=== PATIENT | male | born 1960 | race Caucasian/White ===

== ENCOUNTER 2022-12-16 07:22 | Outpatient (OUT) | payer OTHER, SELFPAY ==
[2022-12-16 08:09] LABS: Basophils Absolute Auto 0.1 10^3/uL (0.0-0.1); Basophils Percent Auto 1.1 % (0.2-2.0); Eosinophils Absolute Auto 0.6 10^3/uL (0.0-0.7); Hematocrit 46.3 % (42.0-54.0); Hemoglobin 15.1 g/dL (14.0-18.0); Immature Granulocytes Abs Auto 0.07 10^3/uL (0.00-0.03); Immature Granulocytes Pct Auto 0.8 % (0.0-0.5); Lymphocytes Absolute Auto 3.8 10^3/uL (1.2-3.8); Lymphocytes Percent Auto 41.4 % (20.5-60.0); Mean Corpuscular HGB Conc 32.6 g/dL (29.9-35.2); Mean Corpuscular Hemoglobin 31.8 pg (25.9-34.0); Mean Corpuscular Volume 97.5 fL (80.0-94.0); Mean Platelet Volume 9.8 fL (9.5-13.5); Monocytes Absolute Auto 0.9 10^3/uL (0.3-0.8); Monocytes Percent Auto 9.2 % (1.7-12.0); Neutrophils Absolute Auto 3.9 10^3/uL (1.4-6.5); Neutrophils Percent Auto 41.5 % (43.0-75.0); Platelet Count 226 10^3/uL (150-450); Red Blood Count 4.75 10^6/uL (4.70-6.10); Red Cell Distribution Width 14.2 % (11.0-15.0); White Blood Count 9.3 10^3/uL (4.0-11.0)
[2022-12-16 08:39] LABS: Alanine Aminotransferase 42 U/L (16-63); Albumin Globulin Ratio 1.1; Albumin Level 3.9 g/dL (3.4-5.0); Alkaline Phosphatase 76 U/L (46-116); Anion Gap 16.9; Aspartate Amino Transferase 25 U/L (15-37); Bilirubin Total 0.2 mg/dL (0.2-1.0); Carbon Dioxide 25.9 mmol/L (21.0-32.0); Chloride 105 mmol/L (98-107); Chol HDL Ratio 3.1; Cholesterol 100 mg/dL (<=200); Creatinine Urine Random 115.07 mg/dL (20.00-300.00); Estimated GFR (African America >60 (>=60); Estimated GFR (Non-African Ame >60 (>=60); Globulin 3.4 g/dL; Glucose 145 mg/dL (74-106); HDL Cholesterol 32 mg/dL (40-60); Potassium 4.8 mmol/L (3.5-5.1); Protein Creatinine Ratio Urine 0.13; Sodium 143 mmol/L (136-145); Total Protein 7.3 g/dL (6.4-8.2); Total Protein Urine Random 14.8 mg/dL (<=11.9); Triglycerides 341 mg/dL (<=150); VLDL CHOLESTEROL 68.2 mg/dL
[2022-12-16 09:42] LABS: Estimated Average Glucose 163 mg/dL; Glycohemoglobin A1C 7.3 % (4.5-6.2)
== END 2022-12-16 07:23 | disposition home or self-care (01) ==
LOC: LAB 07:23
PROVIDERS: PCP Internal Medicine; Visit Provider Internal Medicine
DX: E78.5 Hyperlipidemia, unspecified (principal); E11.22 Type 2 diabetes mellitus with diabetic chronic kidney disease; N18.30 Chronic kidney disease, stage 3 unspecified; E11.42 Type 2 diabetes mellitus with diabetic polyneuropathy; I25.10 Atherosclerotic heart disease of native coronary artery without angina pectoris
CPT/HCPCS: 36415; 80053; 80061; 82570; 82607; 83036; 84156; 85025

== ENCOUNTER 2023-03-05 13:06 | Emergency (ER) | payer OTHER, SELFPAY ==
[2023-03-05] VITALS (13 sets, daily range): BP systolic 98–103; BP diastolic 67–76; PULSE 61–77; RESP 13–22; TEMP 36.8; O2SAT 86–98; BMI 32.3
--- NOTE | 2023-03-05 13:10 | ECG_ITS ---
[facility] Test Date: 2023-03-05 Pat Name: ROXANE BONNER Department: Room: - Gender: Male Video Editor: : 1960 Requested By: SHAIKH WAYNE Order Number: [id number] Reading MD: SALAZAR SAWANT Measurements Intervals [place] Rate: 76 P: 30 NM: 176 QRS: 34 QRSD: 96 T: 45 QT: 408 QTc: 438 Interpretive Statements 1100 Sinus rhythm 8102 Low QRS voltage in chest leads 9120 atypical ECG No previous ECG available for comparison Electronically Signed On 03-06-2023 7:01:35 EDT by SALAZAR SAWANT
--- NOTE | 2023-03-05 13:10 | ED.AMS1 ---
HPI - Altered Mental Status General Chief Complaint: Altered Mental Status Stated Complaint: ULTERED MENTAL STATUS Time Seen by Provider: 03/05/23 13:10 History of Present Illness HPI narrative: Brought to us by the EMS after he was found in the street laying down, the patient admits of using marijuana before arrival smoking it , he also denies any fall or trauma, the patient mentioned that he does smoke cigarettes did not specify how many packs a day of cigarettes The patient also denies any abdominal pain nausea vomiting or any other concerns at the moment he which is sleepy after he smoked marijuana and also any other drug use Related Data Allergies Allergy/AdvReac Type Severity Reaction Status Date / Time Sulfa (Sulfonamide Allergy Severe Rash Verified 03/05/23 13:16 Antibiotics) Penicillins Allergy Verified 03/05/23 13:16 Review of Systems ROS Status of ROS 10 or more systems reviewed and unremarkable except as noted in history and below Exam Narrative Exam Narrative: Nurses notes and vital signs reviewed and patient is not hypoxic. General: Well-appearing and in no apparent distress. Skin: Warm, dry, no pallor noted. No rash. Head: Normocephalic, atraumatic. Neck: Supple, non-tender. Eye: Pupils are equal, round and EOMI. No scleral icterus. Ears, Nose, Mouth, and Throat: TM are clear, no nasal mucosal hypertrophy. Oral mucosa is moist, no posterior oropharynx erythema, uvula is mid-line Cardiovascular: Regular Rate and Rhythm without murmur, gallop or rub. Respiratory: No accessory muscle use or respiratory distress. Lungs are clear to auscultation, no wheezing, rales or rhonchi Chest Wall: no tenderness Back: No midline thoracic or lumbar vertebral tenderness. No CVA tenderness Musculoskeletal: normal ROM, no calf or popliteal tenderness, no lower extremity edema/swelling GI: Abdomen is soft, non-distended. Normal bowel sounds. No masses appreciated. No tenderness to palpation. No rebound, guarding, or rigidity noted. Neurological: A&O x4. No cranial nerve dysfunction observed. No truncal ataxia. Moves all extremities. Sensation intact. Psychiatric: Cooperative and interactive once his name is called, normal mood and affect. Constitutional Vital Signs, click to edit/add: Last Vital Signs Temp 98.2 F 03/05/23 13:37 Pulse 67 03/05/23 14:20 Resp 19 03/05/23 14:20 BP 103/67 03/05/23 13:36 Pulse Ox 98 03/05/23 14:20 O2 Del Method Room Air 03/05/23 13:20 O2 Flow Rate 2 03/05/23 13:20 Course Vital Signs Vital signs: Vital Signs Pulse Rate 75 03/05/23 13:08 Respiratory Rate 18 03/05/23 13:08 Blood Pressure 98/76 03/05/23 13:08 Pulse Oximetry 93 L 03/05/23 13:08 Oxygen Delivery Method Room Air 03/05/23 13:08 Temperature 98.2 F 03/05/23 13:37 Pulse Rate 67 03/05/23 14:20 Respiratory Rate 19 03/05/23 14:20 Blood Pressure 103/67 03/05/23 13:36 Pulse Oximetry 98 03/05/23 14:20 Oxygen Delivery Method Room Air 03/05/23 13:20 Oxygen Delivery Flow Rate 2 03/05/23 13:20 MDM - Altered Mental Status MDM Narrative Medical decision making narrative: The patient EKG showing sinus rhythm with a heart rate of [address] elevation or depression The patient is coming to the ER after he was found to be sleepy in the ER he is fully responsive but he does close his eyes while not talking to him and he does talk to you while he is closing his eyes The patient admits that he did not sleep overnight and he did do some marijuana before arrival Right now the patient CBC chemistry showed no acute pathology and he will be discharged home as no acute finding at this moment or any complication the patient brother at the bedside to take him home The patient is to follow up with primary care physician in next 2-3 days or to return to the emergency department should any of the signs or symptoms worsen or new symptoms develop. The patient agrees with the following Diagnosis and Treatment plan and the patient will be discharged home. Lab Data Labs: Lab Results 03/05/23 03/05/23 Range/Units 13:30 14:10 WBC 11.1 H (4.0-11.0) 10^3/uL RBC 4.36 L (4.70-6.10) 10^6/uL Hgb 14.1 (14.0-18.0) g/dL Hct 42.7 (42.0-54.0) % MCV 97.9 H (80.0-94.0) fL MCH 32.3 (25.9-34.0) pg MCHC 33.0 (29.9-35.2) g/dL RDW 13.7 (11.0-15.0) % Plt Count 196 (150-450) 10^3/uL MPV 10.3 (9.5-13.5) fL Neut % (Auto) 40.0 L (43.0-75.0) % Lymph % (Auto) 42.2 (20.5-60.0) % [place] % (Auto) 9.6 (1.7-12.0) % Eos % (Auto) 6.6 (0.9-7.0) % Baso % (Auto) 0.9 (0.2-2.0) % Neut # (Auto) 4.4 (1.4-6.5) 10^3/uL Lymph # (Auto) 4.7 H (1.2-3.8) 10^3/uL [place] # (Auto) 1.1 H (0.3-0.8) 10^3/uL Eos # (Auto) 0.7 (0.0-0.7) 10^3/uL Baso # (Auto) 0.1 (0.0-0.1) 10^3/uL Abs Immat Gran (auto) 0.08 H (0.00-0.03) 10^3/uL Imm/Tot Granulo (auto) 0.7 H (0.0-0.5) % PT 10.9 (9.0-11.6) sec INR 1.03 Sodium 137 (136-145) mmol/L Potassium 5.1 (3.5-5.1) mmol/L Chloride 102 (98-107) mmol/L Carbon Dioxide 25.6 (21.0-32.0) mmol/L Anion Gap 14.5 BUN 24.0 H (7.0-18.0) mg/dL Creatinine 1.22 (0.70-1.30) mg/dL Est GFR ( Amer) >60 (>=60) Est GFR (Non-Af Amer) 60 (>=60) BUN/Creatinine Ratio 19.7 Glucose 187 H (74-106) mg/dL Calcium 8.8 (8.5-10.1) mg/dL Total Bilirubin 0.7 (0.2-1.0) mg/dL AST 46 H (15-37) U/L ALT 44 (16-63) U/L Alkaline Phosphatase 66 (46-116) U/L Troponin I High Sens <4.0 L (4.0-76.1) pg/mL Total Protein 7.3 (6.4-8.2) g/dL Albumin 4.0 (3.4-5.0) g/dL Globulin 3.3 g/dL Albumin/Globulin Ratio 1.2 Urine Opiates Screen Negative (NEGATIVE) Ur Buprenorphine Scrn Negative (NEGATIVE) Ur Oxycodone Screen Negative (NEGATIVE) Urine Methadone Screen Negative (NEGATIVE) Ur Barbiturates Screen Negative (NEGATIVE) U Tricyclic Antidepress Negative (NEGATIVE) Ur Phencyclidine Scrn Negative (NEGATIVE) Ur Amphetamines Screen Negative (NEGATIVE) U Methamphetamines Scrn Negative (NEGATIVE) U Benzodiazepines Scrn Negative (NEGATIVE) Urine Cocaine Screen Negative (NEGATIVE) U Cannabinoids Screen Negative (NEGATIVE) Ethanol Quant <3 mg/dL Discharge Plan Discharge Chief Complaint: Altered Mental Status Clinical Impression: Marijuana abuse Patient Disposition: Home, Self-Care Time of Disposition Decision: 14:58 Condition: Good Instructions: Cannabis Use Disorder (ED) Stand Alone Forms: Portal Instructions Referrals: Shaikh Rae MD [Primary Care Provider] - 1 week
--- NOTE | 2023-03-05 13:11 | XR_ITS ---
The [address] [address] Patient Name: ROXANE BONNER MRN: [id number] date: 1960 Sex: M Assigned Patient Location: ER Current Patient Location: ER Accession/Order Number: [id number] Exam Date: 03/05/2023 13:20 Report Date: 03/05/2023 14:06 At the request of: MARIA L GLORIA Procedure: XR chest 1V EXAM: XR chest 1V INDICATION: ams. COMPARISON: None. TECHNIQUE: Single frontal view of the chest FINDINGS: Normal cardiomediastinal contours. No focal consolidation. Mild left basilar atelectasis. No pleural effusion or pneumothorax. No acute osseous abnormality. XR/XR chest 1V IMPRESSION: No acute cardiopulmonary process. Electronically authenticated by: RICKY KUO Date: 03/05/2023 14:06
--- NOTE | 2023-03-05 13:13 | PC.NURSE ---
Pulse ox ranging from 87-90% on room air, does come up when patient alert. Oxygen applied at 2 LPM/NC
[2023-03-05] MEDS: 0.9 % SODIUM CHLORIDE 1,000 ML 1000 ML IV (13:34)
[2023-03-05 13:41] LABS: Basophils Absolute Auto 0.1 10^3/uL (0.0-0.1); Basophils Percent Auto 0.9 % (0.2-2.0); Eosinophils Absolute Auto 0.7 10^3/uL (0.0-0.7); Eosinophils Percent Auto 6.6 % (0.9-7.0); Hematocrit 42.7 % (42.0-54.0); Hemoglobin 14.1 g/dL (14.0-18.0); Immature Granulocytes Abs Auto 0.08 10^3/uL (0.00-0.03); Immature Granulocytes Pct Auto 0.7 % (0.0-0.5); Lymphocytes Absolute Auto 4.7 10^3/uL (1.2-3.8); Lymphocytes Percent Auto 42.2 % (20.5-60.0); Mean Corpuscular Hemoglobin 32.3 pg (25.9-34.0); Mean Corpuscular Volume 97.9 fL (80.0-94.0); Mean Platelet Volume 10.3 fL (9.5-13.5); Monocytes Absolute Auto 1.1 10^3/uL (0.3-0.8); Monocytes Percent Auto 9.6 % (1.7-12.0); Neutrophils Absolute Auto 4.4 10^3/uL (1.4-6.5); Platelet Count 196 10^3/uL (150-450); Red Blood Count 4.36 10^6/uL (4.70-6.10); Red Cell Distribution Width 13.7 % (11.0-15.0); White Blood Count 11.1 10^3/uL (4.0-11.0)
[2023-03-05 13:54] LABS: INR 1.03; Prothrombin Time 10.9 sec (9.0-11.6)
[2023-03-05 14:05] LABS: Alanine Aminotransferase 44 U/L (16-63); Albumin Globulin Ratio 1.2; Alkaline Phosphatase 66 U/L (46-116); Anion Gap 14.5; Aspartate Amino Transferase 46 U/L (15-37); BUN Creatinine Ratio 19.7; Bilirubin Total 0.7 mg/dL (0.2-1.0); Calcium 8.8 mg/dL (8.5-10.1); Carbon Dioxide 25.6 mmol/L (21.0-32.0); Chloride 102 mmol/L (98-107); Estimated GFR (African America >60 (>=60); Estimated GFR (Non-African Ame 60 (>=60); Globulin 3.3 g/dL; Glucose 187 mg/dL (74-106); Potassium 5.1 mmol/L (3.5-5.1); Sodium 137 mmol/L (136-145); Total Protein 7.3 g/dL (6.4-8.2); Troponin I High Sensitivity <4.0 pg/mL (4.0-76.1)
[2023-03-05 14:24] LABS: Ethanol <3 mg/dL
[2023-03-05 14:33] LABS: Amphetamine Screen Urine NEGATIVE (NEGATIVE); Benzodiazepines Screen Urine NEGATIVE (NEGATIVE); Cannabinoid Screen Urine NEGATIVE (NEGATIVE); Cocaine Screen Urine NEGATIVE (NEGATIVE); Methamphetamines Screen Urine NEGATIVE (NEGATIVE); Opiate Screen Urine NEGATIVE (NEGATIVE); Phencyclidine Screen Urine NEGATIVE (NEGATIVE); Tricyclic Antidepressant Urine NEGATIVE (NEGATIVE)
[2023-03-05 14:34] LABS: Barbiturates Screen Urine NEGATIVE (NEGATIVE); Buprenorphine Screen Urine NEGATIVE (NEGATIVE); Methadone Screen Urine NEGATIVE (NEGATIVE); Oxycodone Screen Urine NEGATIVE (NEGATIVE)
== END 2023-03-05 15:13 | disposition home or self-care (01) ==
PROVIDERS: Emergency Provider Emergency Medicine; PCP Internal Medicine
DX: F12.10 Cannabis abuse, uncomplicated (principal); F17.210 Nicotine dependence, cigarettes, uncomplicated
CPT/HCPCS: 36415; 71045; 80053; 80307; 80320; 84484; 85025; 85610; 93005; 96360; 99285

== ENCOUNTER 2023-04-06 12:07 | Outpatient (OUT) | payer OTHER, SELFPAY ==
[2023-04-06 13:09] LABS: Estimated Average Glucose 154 mg/dL
== END 2023-04-06 12:08 | disposition home or self-care (01) ==
LOC: LAB 12:08
PROVIDERS: PCP Internal Medicine; Visit Provider Internal Medicine
DX: E11.22 Type 2 diabetes mellitus with diabetic chronic kidney disease (principal); E11.42 Type 2 diabetes mellitus with diabetic polyneuropathy
CPT/HCPCS: 36415; 83036

== ENCOUNTER 2023-05-30 10:11 | Outpatient (OUT) | payer OTHER, SELFPAY ==
[2023-05-30 10:43] LABS: Basophils Absolute Auto 0.1 10^3/uL (0.0-0.1); Basophils Percent Auto 0.9 % (0.2-2.0); Eosinophils Absolute Auto 0.4 10^3/uL (0.0-0.7); Eosinophils Percent Auto 4.4 % (0.9-7.0); Hematocrit 47.1 % (42.0-54.0); Hemoglobin 15.2 g/dL (14.0-18.0); Immature Granulocytes Abs Auto 0.06 10^3/uL (0.00-0.03); Immature Granulocytes Pct Auto 0.6 % (0.0-0.5); Lymphocytes Absolute Auto 3.4 10^3/uL (1.2-3.8); Lymphocytes Percent Auto 34.4 % (20.5-60.0); Mean Corpuscular HGB Conc 32.3 g/dL (29.9-35.2); Mean Corpuscular Hemoglobin 31.9 pg (25.9-34.0); Mean Corpuscular Volume 98.9 fL (80.0-94.0); Mean Platelet Volume 9.3 fL (9.5-13.5); Monocytes Absolute Auto 0.7 10^3/uL (0.3-0.8); Monocytes Percent Auto 7.6 % (1.7-12.0); Neutrophils Absolute Auto 5.1 10^3/uL (1.4-6.5); Neutrophils Percent Auto 52.1 % (43.0-75.0); Platelet Count 229 10^3/uL (150-450); Red Blood Count 4.76 10^6/uL (4.70-6.10); Red Cell Distribution Width 13.8 % (11.0-15.0); White Blood Count 9.8 10^3/uL (4.0-11.0)
[2023-05-30 11:27] LABS: Alanine Aminotransferase 47 U/L (16-63); Albumin Globulin Ratio 1.2; Albumin Level 4.2 g/dL (3.4-5.0); Alkaline Phosphatase 64 U/L (46-116); Anion Gap 14.2; Aspartate Amino Transferase 30 U/L (15-37); BUN Creatinine Ratio 17.6; Bilirubin Total 0.4 mg/dL (0.2-1.0); Calcium 9.6 mg/dL (8.5-10.1); Carbon Dioxide 26.8 mmol/L (21.0-32.0); Chloride 103 mmol/L (98-107); Chol HDL Ratio 2.8; Cholesterol 109 mg/dL (<=200); Estimated GFR (African America >60 (>=60); Estimated GFR (Non-African Ame 58 (>=60); Globulin 3.6 g/dL; Glucose 82 mg/dL (74-106); HDL Cholesterol 39 mg/dL (40-60); Sodium 139 mmol/L (136-145); Total Protein 7.8 g/dL (6.4-8.2); Triglycerides 184 mg/dL (<=150); VLDL CHOLESTEROL 36.8 mg/dL
[2023-05-30 12:09] LABS: Creatinine Urine Random 103.93 mg/dL (20.00-300.00); Microalbum Creatinine Ratio Ur 12.5 mg/g (0.0-29.9); Microalbumin Urine Random <1.3 mg/dL (<=30.0)
== END 2023-05-30 10:12 | disposition home or self-care (01) ==
PROVIDERS: PCP Internal Medicine; Visit Provider Internal Medicine
DX: E78.5 Hyperlipidemia, unspecified (principal); E11.9 Type 2 diabetes mellitus without complications
CPT/HCPCS: 36415; 80053; 80061; 82043; 82570; 85025

== ENCOUNTER 2023-11-23 12:15 | Outpatient (OUT) | payer OTHER, SELFPAY ==
--- OUTSIDE RECORDS SUMMARY | 2023-11-23 12:25 | XMS_ITS | CCD ---
Author Organization [facility] Care Team Providers Care Reduction Plant Supervisor Name Role Phone JINNY LOPEZ Unavailable Unavailable BRIDGET PAIGE Unavailable Unavailable HOUSE, ROOSEVELT Unavailable Unavailable House, Sr Roosevelt Garcia Primary Care Provider House DO, Sr Roosevelt Garcia Primary Care Provider HOUSE, SR ROO[place] P Primary Care Unavailable RAN, PRATIK Referring Unavailable PARSELL, WILLIAM W Referring Unavailable HOUSE, SR [place] P Primary Care Unavailable PARSELL, WILLIAM W Referring Unavailable HOUSE, SR [place] P Primary Care Unavailable HOUSE, SR [place] P Primary Care Unavailable RAN, PRATIK Referring Unavailable PARSELL, WILLIAM W Referring Unavailable HOUSE, SR [place] P Primary Care Unavailable PARSELL, WILLIAM W Referring Unavailable HOUSE, SR [place] P Primary Care Unavailable PARSELL, WILLIAM W Referring Unavailable HOUSE, SR [place] P Primary Care Unavailable PARSELL, WILLIAM W Referring Unavailable HOUSE, SR [place] P Primary Care Unavailable PARSELL, WILLIAM W Referring Unavailable HOUSE, SR [place] P Primary Care Unavailable House, Roosevelt P Unavailable Unavailable Unavailable House, DO Roosevelt Primary Care Provider DO Bridget Paige Attending Provider [phone] DO Tree Hayward Referring Provider DENISA, DR AHUMADA Primary Care Unavailable HOUSE, DR AHUMADA Admitting Unavailable HOUSE, DR AHUMADA Attending Unavailable HOUSE, DR AHUMADA Consulting Unavailable HOUSE, DR AHUMADA Primary Care Unavailable HOUSE, DR AHUMADA Admitting Unavailable HOUSE, DR AHUMADA Attending Unavailable HOUSE, DR AHUMADA Consulting Unavailable House, DO Roosevelt Primary Care Provider [phone] DO Tree Hayward Attending Provider Tree Hayward Admitting Unavailable Tree Hayward Attending Unavailable Denisa, Roosevelt Primary Care Unavailable Bridget Paige Admitting Unavailable Bridget Paige Attending Unavailable Tree Hayward Referring Unavailable Denisa, Roosevelt Primary Care Unavailable Tree Hayward Admitting Unavailable Tree Hayward Attending Unavailable Denisa, Roosevelt Primary Care Unavailable Denisa, Dr. Roosevelt Barnes Primary Care Unava ilable Ryland, Dr. Jacinto Del Angel Attending Bisiva ilsharon Crawley, Dr. Roosevelt Barnes Primary Care Unava ilable Saul, Lorenzo Glenda Silvia Patel Referring Adelaide Hughes, Ms. Glenda Donjarrett Patel Attending ROOSEVELT Murillo Primary Care Unavailable Shaikh Rae MD Primary Care Provider Jacinto Hayward DO Unavailable [phone] SHAIKH RAE Attending Unavailable WAYNE, Attending Unavailable WAYNE, Attending Unavailable JACINTO HAYWARD Attending Unavailable SHAIKH RAE Primary Care Unavailable Allergies Allergy Classification Reported Allergen(s) Allergy Type Date of Onset Reaction(s) Facility Penicillins (antibiotic) (6 sources) Penicillins Drug Allergy 01-29-20 18 Hives, Itching, Rash [facility] Sulfamethoxazole / Trimethoprim (6 sources) Sulfamethoxazole / Trimethoprim Drug Allergy 08-03-19 19 Other (See Comments) [facility] Work Phone: (5 sources) Penicillins; Translations: [PENICILLINS] Propensity to adverse reactions to drug 01-29-20 18 Hives, Itching, Rash [place] (3 sources) Sulfamethoxazole / Trimethoprim Drug Allergy 08-03-19 19 Other (See Comments) [place] (4 sources) Penicillins; Translations: [Penicillins] Allergy to drug (finding) Itching, Rash, Swelling [facility] [place] [address] DO Work Phone: (5 sources) Sulfonamides (Antibiotic); Translations: [Sulfa Drugs] Allergy to drug (finding) Itching, Rash, Swelling [facility] (4 sources) Sulfonamides (Antibiotic); Translations: [Sulfa (Sulfonamide Antibiotics)] Allergy to substance 08-26-19 23 Itching, Rash, Swelling [facility] (1 source) Penicillins Drug allergy (disorder) 08-28-19 [facility] Repository (1 source) Penicillin; Translations: [penicillin] Drug Allergy [facility] Repository (1 source) Penicillins Drug Allergy 05-17-19 Itching, Rash, Swelling [facility] Medications Current Medications Medication Drug Class(es) Dates Sig (Normalized) Sig (Original) aspirin 81 mg delayed release oral tablet (15 sources) Platelet Aggregation Inhibitor, Nonsteroidal Anti-inflammatory Drug Start: 08-25-2022 take 81 mg by mouth once daily Aspirin Active 81 MG PO Daily August 25, 2022 12:00am take 1 tablet by mouth once ricardo y aspirin 81 MG chewable tablet Take 81 mg by mouth daily 0 Active atorvastatin 20 mg oral tablet (7 sources) HMG-CoA Reductase Inhibitor take 1 tablet by mouth once daily atorvastatin (LIPITOR) 20 MG tablet Take 20 mg by mouth daily 0 Active ubidecarenone 200 mg oral capsule (14 sources) take 1 capsule by mouth once daily coenzyme Q-10 200 mg capsule Take 1 capsule (200 mg) by mouth once daily. 0 Active Coenzyme Q10 (CO Q 10) 10 MG CAPS Take by mouth daily 0 Active empagliflozin 25 mg oral tablet (3 sources) Sodium-Glucose Cotransporter 2 Inhibitor Start: 08-25-2022 take 1 tablet by mouth once daily Empagliflozin (Jardiance) 25 mg Tablet Active 25 MG PO Daily August 25, 2022 12:00am escitalopram 10 mg oral tablet (1 source) Serotonin Reuptake Inhibitor take 1 tablet by mouth once daily escitalopram (Lexapro) 10 mg tablet Take 1 tablet (10 mg) by mouth once daily. 0 Active gabapentin 600 mg oral tablet (9 sources) Anti-epileptic Agent Start: 07-13-2018 take 2 tablets by mouth once daily in the morning, then take 3 tablets by mouth once daily in the evening gabapentin (NEURONTIN) 600 MG tablet TAKE 2 TABLETS BY MOUTH EVERY MORNING and TAKE 3 TABLETS BY MOUTH EVERY EVENING 0 07/13/2018 Active glimepiride 2 mg oral tablet (6 sources) Sulfonylurea Start: 08-25-2022 take 2 mg by mouth twice daily Glimepiride Active 2 MG PO Twice daily August 25, 2022 12:00am ibuprofen 200 mg oral tablet (9 sources) Nonsteroidal Anti-inflammatory Drug Start: 08-02-2018 take 1 tablet by mouth every six hours as needed for pain ibuprofen (ADVIL;MOTRIN) 200 MG tablet Indications: Dysuria Take 1 tablet by mouth every 6 hours as needed for Pain 30 tablet 0 08/02/2018 Active 24 hr isosorbide mononitrate 30 mg extended release oral tablet (3 sources) Nitrate Vasodilator Start: 08-25-2022 isosorbide mononitrate ER (Imdur) 30 mg 24 hr tablet 1 tablet (30 mg) once daily. 0 08/25/2022 Active Start: 08-18-2022 take 1 tablet by mikey th once daily Isosorbide Mononitrate ER 30 MG Oral Tablet Extended Release 24 Hour TAKE 1 TABLET DAILY DIRECTED. Quantity: 30 Refills: 6 Ordered: 18-Aug-2022 Jorge Hughes CRUSHER ASSEMBLER-JEWELRY SALESPERSONGlenda Start : 18-Aug-2022 Active lisinopril 10 mg oral tablet (15 sources) Angiotensin Converting Enzyme Inhibitor Start: 07-31-2018 take 10 mg by mouth once daily Lisinopril Active 10 MG PO Daily August 25, 2022 12:00am metFORMIN hydrochloride 1000 mg oral tablet (15 sources) Biguanide Start: 08-25-2022 take 1000 mg by mouth twice daily Metformin Active 1000 MG PO Twice daily August 25, 2022 12:00am 24 hr metoprolol succinate 25 mg extended release oral tablet (12 sources) beta-Adrenergic Darryl Start: 08-25-2022 take 12.5 mg by mouth once daily Metoprolol Succinate Active 12.5 MG PO Daily August 25, 2022 12:00am Start: 09-11-2020 take 0.5 tablet by m outh once daily metoprolol succinate (TOPROL XL) 25 MG extended release tablet TAKE 1/2 (ONE-HALF) OF A TABLET BY MOUTH EVERY DAY 0 09/11/2020 Active take 0.5 tablet by m outh once daily metoprolol succinate XL (Toprol-XL) 25 mg 24 hr tablet Take 0.5 tablets (12.5 mg) by mouth once daily. 0 Active pregabalin 150 mg oral capsule (6 sources) Start: 08-25-2022 take 150 mg by mouth three times daily Pregabalin Active 150 MG PO Three times daily August 25, 2022 12:00am rosuvastatin calcium 20 mg oral tablet (11 sources) HMG-CoA Reductase Inhibitor Start: 11-04-2019 take 20 mg by mouth once daily Rosuvastatin Active 20 MG PO Daily August 25, 2022 12:00am tamsulosin hydrochloride 0.4 mg oral capsule (3 sources) alpha-Adrenergic Darryl Start: 01-30-2018 take 1 capsule by mouth once daily tamsulosin (FLOMAX) 0.4 MG capsule Indications: Renal stone Take 1 capsule by mouth daily 30 capsule 3 01/30/2018 Active ubiquinol 200 mg oral capsule (1 source) Start: 08-25-2022 take 200 mg by mouth once daily Coq10 (Ubiquinol) Active 200 MG PO Daily August 25, 2022 12:00am vitamin b12 1 mg oral tablet (6 sources) Vitamin B12 Start: 08-25-2022 take 1 tablet by mouth once daily Cyanocobalamin (Vitamin B-12) (Vitamin B-12) 1,000 mcg Tablet Active 1000 MCG PO Daily August 25, 2022 12:00am End: 06-07-2023 take 1 tablet by mouth four times daily cyanocobalamin, vitamin B-12, (Vitamin B-12) 1,000 mcg tablet extended release Take 1 tablet (1,000 mcg) by mouth 4 times a day. 0 06/07/2023 Discontinued (Therapy completed) Completed/Discontinued Medications Medication Drug Class(es) Dates Sig (Normalized) Sig (Original) 24 hr nicotine 0.875 mg/hr transdermal system (1 source) Cholinergic Nicotinic Agonist Start: 08-18-2022 apply 1 dose transdermal route once daily GNP Nicotine 21 MG/24HR Transdermal Patch 24 Hour APPLY 1 PATCH DAILY DIRECTED. Quantity: 30 Refills: 0 Ordered: 18-Aug-2022 Glenda Sutherland Start : 18-Aug-2022 Active 24 hr nitroglycerin 0.2 mg/hr transdermal system (4 sources) Nitrate Vasodilator Start: 09-29-2022 apply 1 dose transdermal route once daily, then apply 1 dose transdermal route every twenty-four hours Nitroglycerin 0.2 MG/HR Transdermal Patch 24 Hour APPLY PATCH FOR 12 TO 14 HOURS DAILY, THEN REMOVE Quantity: 30 Refills: 6 Ordered: 29-Sep-2022 Glenda Sutherland Start : 29-Sep-2022 Active Start: 08-18-2022 Nitroglycerin Active 0.4 MG SUBLINGUAL Q5M August 25, 2022 12:00am Problems Active Problems Problem Classification Problem Date Documented Date Episodic/Chronic Acute and unspecified renal failure (1 source) Acute injury of kidney; Translations: [Acute kidney failure, unspecified] Episodic Anxiety disorders (4 sources) Anxiety; Translations: [Anxiety disorder, unspecified] Onset: 06-07-2023 06-07-2023 Chronic Chronic kidney disease (2 sources) Chronic kidney disease stage 3A ; Translations: [Stage 3a chronic kidney disease (HCC)] Chronic Coronary atherosclerosis and other heart disease (13 sources) Atherosclerotic heart disease of [place] coronary artery without angina pectoris; Translations: [Coronary atherosclerosis] Onset: 04-04-2018 06-07-2023 Chronic Diabetes mellitus with complications (4 sources) Type 2 diabetes mellitus with diabetic neuropathy, unspecified; Translations: [TYPE 2 DM W/DIABETIC NEUROPATHY UNS] Onset: 04-19-2022 Chronic Diabetes mellitus with complications (1 source) Diabetes mellitus with complications Onset: 04-04-2018 Diabetes mellitus without complication (13 sources) Diabetes mellitus; Translations: [Diabetes mellitus without mention of complication, type II or unspecified type, not stated as uncontrolled] Onset: 07-30-2021 Chronic Disorders of lipid metabolism (6 sources) Hyperlipidemia; Translations: [Other and unspecified hyperlipidemia] Onset: 08-27-2022 05-17-2023 Chronic Essential hypertension (6 sources) Hypertensive disorder; Translations: [Unspecified essential hypertension] Onset: 08-27-2022 05-17-2023 Chronic Essential hypertension (1 source) Essential hypertension Onset: 04-04-2018 Genitourinary symptoms and ill-defined conditions (1 source) Dysuria; Translations: [Dysuria] Episodic Hyperplasia of prostate (1 source) Benign prostatic hyperplasia without lower urinary tract symptoms; Translations: [BENIGN PROSTATIC HYPRPLASIA WO LUTS] Onset: 04-24-2022 Chronic Nonspecific chest pain (5 sources) Tight chest; Translations: [Other chest pain] Onset: 05-17-2023 05-17-2023 Episodic Other nutritional; endocrine; and metabolic disorders (6 sources) Obesity; Translations: [Obesity, unspecified] Chronic Other nutritional; endocrine; and metabolic disorders (2 sources) Body mass index 30+ - obesity; Translations: [Obesity, unspecified] Onset: 06-07-2023 06-07-2023 Chronic Other nutritional; endocrine; and metabolic disorders (2 sources) Obesity, unspecified; Translations: [Obesity, unspecified] Onset: 06-07-2023 Chronic Other screening for suspected conditions (not mental disorders or infectious disease) (5 sources) Abnormal results of function studies of other organs and systems; Translations: [Nonspecific abnormal results of function study] Onset: 05-17-2023 05-17-2023 Episodic Residual codes; unclassified (1 source) Other specified postprocedural states; Translations: [Other specified postprocedural states] Onset: 08-27-2022 Episodic Substance-related disorders (9 sources) Smokes tobacco daily; Translations: [Tobacco use disorder] Onset: 08-27-2022 06-07-2023 Chronic Unclassified (1 source) Family hx of ischem heart dis and oth dis of the circ sys / Z82.49(ICD-9) Onset: 04-04-2018 Unclassified (2 sources) Athscl heart disease of che[place] coronary artery w/o ang pctrs / I25.10(ICD-9) Onset: 04-04-2018 Unclassified (1 source) Peripheral vascular angioplasty status / Z98.62(ICD-9) Onset: 04-04-2018 Unclassified (1 source) Pure hypercholesterolemia, unspecified / E78.00(ICD-9) Onset: 04-04-2018 Unclassified (1 source) manager long term care (current) use of oral hypoglycemic drugs / Z79.84(ICD-9) Onset: 04-04-2018 Unclassified (1 source) manager long term care (current) use of aspirin / Z79.82(ICD-9) Onset: 04-04-2018 Unclassified (1 source) Nicotine dependence, unspecified, uncomplicated / F17.200(ICD-9) Onset: 04-04-2018 Unclassified (1 source) Atherosclerotic heart disease of [place] coronary artery with unspecified angina pectoris; Translations: [Atherosclerotic heart disease of [place] coronary artery with unspecified angina pectoris] Onset: 08-27-2022 Unclassified (1 source) Encounter for preprocedural laboratory examination; Translations: [Encounter for preprocedural laboratory examination] Onset: 08-25-2022 Unclassified (1 source) I25.10 - Atherosclerotic heart disease of [place] coronary artery without angina pectoris; Translations: [I25.10 - Atherosclerotic heart disease of [place] coronary artery without angina pectoris] Onset: 09-07-2021 Past or Other Problems Problem Classification Problem Date Documented Da te Episodic/Chronic Calculus of urinary tract (20 sources) Calculus of kidney; Translations: [Renal colic] Onset: 01-28-2018 02-02-2018 Episodic Malaise and fatigue (1 source) Other fatigue; Translations: [OTHER FATIGUE] Onset: 08-05-2021 Episodic Other aftercare (2 sources) correction (current) use of insulin; Translations: [manager long term care (current) use of insulin ([facility]/HCC)] Onset: 05-17-2023 Episodic Other lower respiratory disease (3 sources) Dyspnea; Translations: [Shortness of breath] Onset: 06-07-2023 06-07-2023 Episodic Other lower respiratory disease (1 source) Shortness of breath; Translations: [Shortness of breath] Onset: 06-07-2023 Episodic Other nutritional; endocrine; and metabolic disorders (1 source) Abnormal weight gain; Translations: [ABNORMAL WEIGHT GAIN] Onset: 08-05-2021 Episodic Results Test Name Value Interpretation Reference Range Facility Tobacco Screening.on 023 Adult depression screening assessment No [facility] [place] [address] DO Work Phone: Tobacco use status CP a) Yes [facility] [place] [address] DO Work Phone: Tobacco Screening. Yes [facility] [place] 250 DO Work Phone: Activated partial thrombopla stin time (aPTT) in platelet poor plasma by coagulation aOrdered By: Tree Hayward on 08-25-2022 aPTT Coag (PPP) [Time] 32.0 s 25.1-36.5 [facility] Basophils Auto (Bld) [#/Vol] Ordered By: Tree Hayward on 08-25-2022 Basophils (Bld) [#/Vol] 0.1 10*3/uL 0.0-0.2 [facility] Basophils/100 WBC Auto (Bld) Ordered By: Tree Hayward on 08-25-2022 Basophils/100 WBC (Bld) 1.0 % . [facility] Blood Urea Nitrogenon 2022 Urea nitrogen [Mass/Vol] 20 mg/dL Normal 7-25 [facility] Comment on above: Performed By: #### C BC, PP, LYTES, BUN, CREAT, LIPID #### [facility] [address] Carbon dioxide, total [Moles /volume] in Serum or PlasmaOrdered By: Tree Hayward on 08-25-2022 CO2 [Moles/Vol] 25.8 mmol/L 21.0-31.0 [facility] Chloride [Moles/volume] in S lubna or PlasmaOrdered By: Tree Hayward on 08-25-2022 Chloride [Moles/Vol] 106 mmol/L 98-107 [facility] Cholesterol [Mass/volume] in Serum or PlasmaOrdered By: Tree Hayward on 08-25-2022 Cholesterol [Mass/Vol] 101 mg/dL 140-200 [facility] Comment on above: Chol less than 200 m g/dl low riskChol 201-239 mg/dl borderline riskChol 240 mg/dl and greater high risk Cholesterol in LDL Calc [Mas s/Vol]Ordered By: Tree Hayward on 08-25-2022 Cholesterol in LDL [Mass/Vol] 35 mg/dL 0-100 [facility] Comment on above: LDL ATP III CLASSIFI CATIONLDL less than 100 mg/dL OptimalLDL 100-129 mg/dL Near or above optimalLDL 130-159 mg/dL Borderline highLDL 160-189 mg/dL HighLDL greater than 189 mg/dL Very high Cholesterol in VLDL Calc [Ma ss/Vol]Ordered By: Tree Hayward on 08-25-2022 Cholesterol in VLDL [Mass/Vol] 35 mg/dL [facility] Coagulation Profileon 2022 aPTT Coag (Bld) [Time] 32.0 s Normal 25.1-36.5 [facility] Comment on above: Result Comment: PERF ORMED BY: [facility] [address] [place] [address] PATHOLOGIST STUMP BLOWER MAX RAMOS M.D. Performed By: #### C BC, PP, LYTES, BUN, CREAT, LIPID #### [address] INR Coag (PPP) [Relative time] 0.9 {INR} Normal [facility] Comment on above: Result Comment: INR Therapeutic Range A) Pre- and Peroperative OAT started two weeks before surgery. NOT HIP SURGERY: 1.5 - 2.5 HIP SURGERY: 2 - 3 B) Primary and secondary prevention of venous THROMBOSIS: 2 - 3 C) Active venous thrombosis, pulmonary embolism and prevention of recurrent venous thrombosis: 2 - 3 D) Prevention of arterial thromboembolism including patients with mechanical heart valves: 3 - 4.5 Performed By: #### C BC, PP, LYTES, BUN, CREAT, LIPID #### [address] PT Coag (PPP) [Time] 10.9 s Normal 9.0-12.9 [facility] Comment on above: Performed By: #### C BC, PP, LYTES, BUN, CREAT, LIPID #### [address] Complete Blood Count Auto Di ffon 08-25-2022 Basophils (Bld) [#/Vol] 0.1 10*3/uL Normal 0.0-0.2 [facility] Comment on above: Result Comment: PERF ORMED BY: [place] [address] PATHOLOGIST STUMP BLOWER MAX RAMOS M.D. Performed By: #### C BC, PP, LYTES, BUN, CREAT, LIPID #### [address] Basophils/100 WBC (Bld) 1.0 % Normal . [facility] Comment on above: Performed By: #### C BC, PP, LYTES, BUN, CREAT, LIPID #### [address] Eosinophils (Bld) [#/Vol] 0.5 10*3/uL High 0.0-0.45 [facility] Comment on above: Performed By: #### C BC, PP, LYTES, BUN, CREAT, LIPID #### [address] Eosinophils/100 WBC (Bld) 6.3 % Normal . [facility] Comment on above: Performed By: #### C BC, PP, LYTES, BUN, CREAT, LIPID #### [address] Erythrocyte distribution width (RBC) [Ratio] 13.9 % Normal 12.0-14.8 [facility] Comment on above: Performed By: #### C BC, PP, LYTES, BUN, CREAT, LIPID #### [address] Hematocrit (Bld) [Volume fraction] 40.8 % Normal 38.8-50.0 [facility] Comment on above: Performed By: #### C BC, PP, LYTES, BUN, CREAT, LIPID #### [address] Hemoglobin (Bld) [Mass/Vol] 13.8 g/dL Normal 13.0-17.0 [facility] Comment on above: Performed By: #### C BC, PP, LYTES, BUN, CREAT, LIPID #### [address] Lymphocytes (Bld) [#/Vol] 3.4 10*3/uL Normal 1.00-4.8 [facility] Comment on above: Performed By: #### C BC, PP, LYTES, BUN, CREAT, LIPID #### [address] Lymphocytes/100 WBC (Bld) 42.2 % Normal . [facility] Comment on above: Performed By: #### C BC, PP, LYTES, BUN, CREAT, LIPID #### [address] MCH (RBC) [Entitic mass] 32.2 pg Normal 27.5-35.2 [facility] Comment on above: Performed By: #### C BC, PP, LYTES, BUN, CREAT, LIPID #### [address] MCV (RBC) [Entitic vol] 95.4 fL Normal 83.5-101 [facility] Comment on above: Performed By: #### C BC, PP, LYTES, BUN, CREAT, LIPID #### [address] Mean Corpuscular HGB Conc 33.7 g/dL Normal 32.5-35.6 [facility] Comment on above: Performed By: #### C BC, PP, LYTES, BUN, CREAT, LIPID #### [address] Monocytes (Bld) [#/Vol] 0.7 10*3/uL Normal 0.0-0.8 [facility] Comment on above: Performed By: #### C BC, PP, LYTES, BUN, CREAT, LIPID #### [address] Monocytes/100 WBC (Bld) 8.4 % Normal . [facility] Comment on above: Performed By: #### C BC, PP, LYTES, BUN, CREAT, LIPID #### [address] Neutrophils (Bld) [#/Vol] 3.4 10*3/uL Normal 1.8-7.7 [facility] Comment on above: Performed By: #### C BC, PP, LYTES, BUN, CREAT, LIPID #### [address] Neutrophils/100 WBC (Bld) 42.1 % Normal . [facility] Comment on above: Performed By: #### C BC, PP, LYTES, BUN, CREAT, LIPID #### [address] NRBC% 0.1 /100{WBC} Normal 0-0.5 [facility] Comment on above: Performed By: #### C BC, PP, LYTES, BUN, CREAT, LIPID #### [address] Platelet mean volume (Bld) [Entitic vol] 7.9 fL Normal 6.6-10.1 [facility] Comment on above: Performed By: #### C BC, PP, LYTES, BUN, CREAT, LIPID #### [address] Platelets (Bld) [#/Vol] 206 10*3/uL Normal 150-450 [facility] Comment on above: Performed By: #### C BC, PP, LYTES, BUN, CREAT, LIPID #### [address] RBC (Bld) [#/Vol] 4.28 10*6/uL Normal 3.90-5.60 [facility] Comment on above: Performed By: #### C BC, PP, LYTES, BUN, CREAT, LIPID #### [address] WBC (Bld) [#/Vol] 8.2 10*3/uL Normal 4.1-10.5 [facility] Comment on above: Performed By: #### C BC, PP, LYTES, BUN, CREAT, LIPID #### [address] Creatinineon 08-25-2022 Creatinine [Mass/Vol] 1.32 mg/dL High 0.70-1.30 [facility] Comment on above: Performed By: #### C BC, PP, LYTES, BUN, CREAT, LIPID #### [address] GFR/1.73 sq M.predicted MDRD (S/P/Bld) [Vol rate/Area] mL/min/{1.73_m2} [facility] Comment on above: Performed By: #### C BC, PP, LYTES, BUN, CREAT, LIPID #### [place] [address] [place] Creatinine [Mass/volume] in Serum or PlasmaOrdered By: Tree Hayward on 08-25-2022 Creatinine [Mass/Vol] 1.32 mg/dL 0.70-1.30 [facility] ECG 12 lead ECGon 08-25-2022 ECG 12 lead ECG [facility] [address] [place] [address] [place] [address] Electrocardiograph Report Signed Patient: Roxane Bonner MR#: [id number] : 1960 Acct:[id number] Age/Sex: 61 / M ADM Date: 08/25/22 Loc: Room: Type: [facility] Attending Dr: Tree Hayward DO Ordering Provider: Tree Hayward DO Date of Service: 08/25/22 ECG/ECG 12 lead ECG: pre op Copies to: Test Reason : Blood Pressure : / mmHG Vent. Rate : 070 BPM Atrial Rate : 070 BPM P-R Int : 174 ms QRS Dur : 098 ms QT Int : 418 ms P-R-T Axes : 066 050 057 degrees QTc Int : 451 ms Normal sinus rhythm Low voltage QRS Borderline ECG When compared with ECG of 18-MAR-2012 07:07, No significant change was found Confirmed by JONES MCDERMOTT MD ([id number]) on 08/25/2022 8:48:05 AM Referred By: DENISA HAYWARD Electronically Signed By:JONES MCDERMOTT MD Transcribed By: MUS Signed By Jones Mcdermott MD 0 08/25/22 0848 Normal [facility] Electrolyteson 08-25-2022 Anion gap [Moles/Vol] 12.8 mmol/L Normal 6.0-15.0 [facility] Comment on above: Performed By: #### C BC, PP, LYTES, BUN, CREAT, LIPID #### [facility] [address] [place] [address] [place] Chloride [Moles/Vol] 106 mmol/L Normal 98-107 [facility] Comment on above: Performed By: #### C BC, PP, LYTES, BUN, CREAT, LIPID #### [facility] [address] [place] [address] [place] CO2 [Moles/Vol] 25.8 mmol/L Normal 21.0-31.0 [facility] Comment on above: Performed By: #### C BC, PP, LYTES, BUN, CREAT, LIPID #### [facility] [address] Potassium [Moles/Vol] 4.6 mmol/L Normal 3.5-5.1 [facility] Comment on above: Performed By: #### C BC, PP, LYTES, BUN, CREAT, LIPID #### [facility] [address] Sodium [Moles/Vol] 140 mmol/L Normal 136-145 [facility] Comment on above: Performed By: #### C BC, PP, LYTES, BUN, CREAT, LIPID #### [facility] [address] [place] [address] [place] Eosinophils Auto (Bld) [#/Vo l]Ordered By: Tree Hayward on 08-25-2022 Eosinophils (Bld) [#/Vol] 0.5 10*3/uL 0.0-0.45 [facility] Eosinophils/100 WBC Auto (Bl d)Ordered By: Tree Hayward on 08-25-2022 Eosinophils/100 WBC (Bld) 6.3 % . [facility] Erythrocyte distribution wid th Auto (RBC) [Ratio]Ordered By: Tree Hayward on 08-25-2022 Erythrocyte distribution width (RBC) [Ratio] 13.9 % 12.0-14.8 [facility] Hematocrit Auto (Bld) [Volum e fraction]Ordered By: Tree Hayward on 08-25-2022 Hematocrit (Bld) [Volume fraction] 40.8 % 38.8-50.0 [facility] Hemoglobin [Mass/volume] in BloodOrdered By: Tree Hayward on 08-25-2022 Hemoglobin (Bld) [Mass/Vol] 13.8 g/dL 13.0-17.0 [facility] Laboratory - CoagulationOrde red By: Tree Hayward on 08-25-2022 PT Coag (PPP) [Time] 10.9 s 9.0-12.9 [facility] Leukocytes [#/volume] correc maco for nucleated erythrocytes in Blood by Automated counOrdered By: Tree Hayward on 08-25-2022 WBC corrected for nucl RBC Auto (Bld) [#/Vol] 8.2 10*3/uL 4.1-10.5 [facility] Lipid Panelon 08-25-2022 Cholesterol [Mass/Vol] 101 mg/dL Low 140-200 [facility] Comment on above: Result Comment: Chol less than 200 mg/dl low risk Chol 201-239 mg/dl borderline risk Chol 240 mg/dl and greater high risk Performed By: #### C BC, PP, LYTES, BUN, CREAT, LIPID #### [facility] [address] Cholesterol in HDL [Mass/Vol] 31 mg/dL Normal 29-71 [facility] Comment on above: Result Comment: HDL CHOL ATP-III CLASSIFICATION Cardiovascular Risk HDL > or equal to 60 mg/dL LOW HDL < 40 mg/dL HIGH Performed By: #### C BC, PP, LYTES, BUN, CREAT, LIPID #### [facility] [address] Cholesterol.total/Chol esterol in HDL [Mass ratio] 3.3 {ratio} Normal <5.0 [facility] Comment on above: Result Comment: PERF ORMED BY: [place] [address] PATHOLOGIST STUMP BLOWER MAX RAMOS M.D. Performed By: #### C BC, PP, LYTES, BUN, CREAT, LIPID #### [facility] [address] LDL Cholesterol,Calculated 35 mg/dL Normal 0-100 [facility] Comment on above: Result Comment: LDL ATP III CLASSIFICATION LDL less than 100 mg/dL Optimal LDL 100-129 mg/dL Near or above optimal LDL 130-159 mg/dL Borderline high LDL 160-189 mg/dL High LDL greater than 189 mg/dL Very high Performed By: #### C BC, PP, LYTES, BUN, CREAT, LIPID #### [facility] [address] [place] [address] [place] Triglyceride w/Reflex 177 mg/dL High 0-149 [facility] Comment on above: Result Comment: TRIG ATP III CLASSIFICATION TRIG less than 150 mg/dL Normal TRIG 150-199 mg/dL Borderline high TRIG 200-500 mg/dL High TRIG greater than 500 mg/dL Very high Standard traceable to the Center for Disease Conrtrol and Prevention (CDC) test method. Performed By: #### C BC, PP, LYTES, BUN, CREAT, LIPID #### [facility] [address] VLDL CHOLESTEROL 35 mg/dL Normal [facility] Comment on above: Performed By: #### C BC, PP, LYTES, BUN, CREAT, LIPID #### [facility] [address] Lymphocytes Auto (Bld) [#/Vo l]Ordered By: Tree Hayward on 08-25-2022 Lymphocytes (Bld) [#/Vol] 3.4 10*3/uL 1.00-4.8 [facility] Lymphocytes/100 WBC Auto (Bl d)Ordered By: Tree Hayward on 08-25-2022 Lymphocytes/100 WBC (Bld) 42.2 % . [facility] MCH Auto (RBC) [Entitic mass ]Ordered By: Tree Hayward on 08-25-2022 MCH (RBC) [Entitic mass] 32.2 pg 27.5-35.2 [facility] MCHC Auto (RBC) [Mass/Vol]Or dered By: Tree Hayward on 08-25-2022 MCHC (RBC) [Mass/Vol] 33.7 g/dL 32.5-35.6 [facility] MCV Auto (RBC) [Entitic vol] Ordered By: Tree Hayward on 08-25-2022 MCV (RBC) [Entitic vol] 95.4 fL 83.5-101 [facility] Monocytes Auto (Bld) [#/Vol] Ordered By: Tree Hayward on 08-25-2022 Monocytes (Bld) [#/Vol] 0.7 10*3/uL 0.0-0.8 [facility] Monocytes/100 WBC Auto (Bld) Ordered By: Tree Hayward on 08-25-2022 Monocytes/100 WBC (Bld) 8.4 % . [facility] Neutrophils Auto (Bld) [#/Vo l]Ordered By: Tree Hayward on 08-25-2022 Neutrophils (Bld) [#/Vol] 3.4 10*3/uL 1.8-7.7 [facility] Neutrophils/100 WBC Auto (Bl d)Ordered By: Tree Hayward on 08-25-2022 Neutrophils/100 WBC (Bld) 42.1 % . [facility] No Panel InformationOrdered By: Tree Hayward on 08-25-2022 Estimated GFR (CKD-EPI) > 60.0 mL/Min [facility] Creatinine Clearance (Chem N/A [facility] Nucleated erythrocytes [Pres ence] in Blood by Automated countOrdered By: Tree Hayward on 08-25-2022 Nucleated RBC Auto Ql (Bld) 0.1 /100{WBC} 0-0.5 [facility] Platelet mean volume Auto (B ld) [Entitic vol]Ordered By: Tree Hayward on 08-25-2022 Platelet mean volume (Bld) [Entitic vol] 7.9 fL 6.6-10.1 [facility] Platelet poor plasma interna tional normalized ratio (INR) by coagulation assay (relatOrdered By: Tree Hayward on 08-25-2022 INR Coag (PPP) [Relative time] 0.9 {INR} [facility] Comment on above: INR Therapeutic Rang e A) Pre- and Peroperative OAT started two weeks before surgery. NOT HIP SURGERY: 1.5 - 2.5 HIP SURGERY: 2 - 3B) Primary and secondary prevention of venous THROMBOSIS: 2 - 3C) Active venous thrombosis, pulmonary embolismand prevention of recurrent venous thrombosis: 2 - 3D) Prevention of arterial thromboembolismincluding patients with mechanical heart valves: 3 - 4.5 Platelets Auto (Bld) [#/Vol] Ordered By: Tree Hayward on 08-25-2022 Platelets (Bld) [#/Vol] 206 10*3/uL 150-450 [facility] Potassium [Moles/volume] in Serum or PlasmaOrdered By: Tree Hayward on 08-25-2022 Potassium [Moles/Vol] 4.6 mmol/L 3.5-5.1 [facility] RBC Auto (Bld) [#/Vol]Ordere d By: Tree Hayward on 08-25-2022 RBC (Bld) [#/Vol] 4.28 10*6/uL 3.90-5.60 [facility] Serum or plasma anion gap de terminationOrdered By: Tree Hayward on 08-25-2022 Anion gap [Moles/Vol] 12.8 mmol/L 6.0-15.0 [facility] Serum or plasma high density lipoprotein (HDL) cholesterol measurementOrdered By: Tree Hayward on 08-25-2022 Cholesterol in HDL [Mass/Vol] 31 mg/dL 29-71 [facility] Comment on above: HDL CHOL ATP-III CLA SSIFICATION Cardiovascular RiskHDL > or equal to 60 mg/dL LOWHDL < 40 mg/dL HIGH Serum or plasma total choles terol/high density lipoprotein (HDL) cholesterol mass ratOrdered By: Tree Hayward on 08-25-2022 Cholesterol.total/Chol esterol in HDL [Mass ratio] 3.3 {ratio} <5.0 [facility] Sodium [Moles/volume] in Ser um or PlasmaOrdered By: Tree Hayward on 08-25-2022 Sodium [Moles/Vol] 140 mmol/L 136-145 [facility] Triglyceride [Mass/volume] i n Serum or PlasmaOrdered By: Tree Hayward on 08-25-2022 Triglyceride [Mass/Vol] 177 mg/dL 0-149 [facility] Comment on above: TRIG ATP III CLASSIF ICATIONTRIG less than 150 mg/dL NormalTRIG 150-199 mg/dL Borderline highTRIG 200-500 mg/dL High TRIG greater than 500 mg/dL Very highStandard traceable to the Center for Disease Conrtrol and Prevention (CDC) test method. Urea nitrogen [Mass/volume] in Serum or PlasmaOrdered By: Tree Hayward on 08-25-2022 Urea nitrogen [Mass/Vol] 20 mg/dL 7-25 [facility] WBC Auto (Bld) [#/Vol]Ordere d By: Tree Hayward on 08-25-2022 WBC (Bld) [#/Vol] 8.2 10*3/uL 4.1-10.5 [facility] Office Visit (Cardiology)on 08-18-2022 Follow-up visit Diagnoses/Problems Assessed Angina, class III (413.9) (I20.9) 2-3 month history of progressive frequency, duration and intensity of exertional symptoms concerning for crescendo angina. No symptoms at rest. Atherosclerosis of [place] coronary artery without angina pectoris (414.01) (I25.10) March 2012 pRCA PCI/ROS LAD mild diffuse CX mild diffuse September 2021 MPI no ischemia Hypertension (401.9) (I10) optimal in office Hyperlipidemia (272.4) (E78.5) High intensity statin Diabetes mellitus (250.00) (E11.9) On ABIGAIL/statin Most recent hemoglobin A1c 8.4 Current every day smoker (305.1) (F17.200) 1 pack per day Tried patches and accupuncture Class 1 obesity with body mass index (BMI) of 33.0 to 33.9 in adult (278.00,V85.33) (E66.9,Z68.33) Reviewed the merits of healthy lifestyle choices on overall cardiovascular health. Orders Angina, class III, Atherosclerosis of [place] coronary artery without angina pectoris Start: Isosorbide Mononitrate ER 30 MG Oral Tablet Extended Release 24 Hour; TAKE 1 TABLET DAILY DIRECTED Cardiac Catheterization Lab Procedures; Status:Active; Requested for:18Aug2022; [facility] diagnostic staff to initiate NO preop orders for left heart cath Start: Nitroglycerin 0.4 MG Sublingual Tablet Sublingual; DISSOLVE 1 TABLET UNDER THE TONGUE NEEDED FOR CHEST PAIN Class 1 obesity with body mass index (BMI) of 33.0 to 33.9 in adult Healthy Weight Tips; Status:Complete; Done: 18Aug2022 SocHx: Current every day smoker Start: GNP Nicotine 21 MG/24HR Transdermal Patch 24 Hour; APPLY 1 PATCH DAILY DIRECTED You need to stop smoking. Though it is not easy, more than half of all adult smokers have quit. We encourage you to write down all the reasons you should quit smoking and set a quit date for yourself. Ask us how we can help. You may also call 4-614-WQCU-NOW for free resources and assistance.; Status:Complete; Done: [id number] Tobacco Use Screening; Status:Complete; Done: [id number] Patient Instructions Please bring all medicines, vitamins, and herbal supplements with you when you come to the office. Prescriptions will not be filled unless you are compliant with your follow up appointments or have a follow up appointment scheduled as per instruction of your physician. Refills should be requested at the time of your visit. PLAN: Through informed decision making process incorporating patients unique circumstances, the following treatment plan will be initiated: 1. Prescription drug management of cardiovascular medication for efficacy, adherence to treatment, side effect assessment and polypharmacy. Current treatment clinically warranted and to continue with following modifications: - Begin isosorbide 30mg daily - Try nicoderm patches 2. NTG sl as needed 3. Cardiac cath +/- PCI with Dr. Ryland Alford prior Hold metformin prior to and 48 hours after procedure 4. Return for follow-up; in the interim, contact the office if new symptoms arise. CREATIVE ART THERAPIST after procedure Chief Complaint Annual f/u: 'I am getting chest discomfort' ROXANE BONNER is being seen for an annual follow-up of coronary artery disease, dyslipidemia and hypertension. Patient presents to the office ambulatory with steady gait. Last evaluated in clinic Dr. Paige August 2021. Patient has followed routinely with Dr. Paige since 2011 due to coronary artery disease and secondary prevention, normal LVEF. Patient follows routinely with PCP. He denies any hospitalizations since last office follow-up. Patient presents to the office today where he reports increasing frequency and duration of exertional left sided chest discomfort with radiation into his upper forearm and occasionally his throat. He noticed the symptoms greater than 1 month ago, has not had nitroglycerin to utilize. His prior PCI symptom was exertional heartburn. Today he reports exertional left-sided aching that will radiate into his throat and upper forearm, associated with exertional activity; seems to resolve within 5 minutes of rest. Denies any rest symptoms or awakening from sleep. He ambulated in from the parking lot today and maybe had a twinge . Remains asymptomatic throughout time of my exam. He goes on to report a significant change in exercise capacity and functional tolerance and just not feeling like I am okay . He has also noted increased dyspnea on exertion. Symptoms can be brought on by anxiety or emotional distress. Secondary prevention remains suboptimal with continued daily tobacco abuse, most recent hemoglobin A1c 8.4. From an activity standpoint he does not exercise on a routine basis, he does go to the grocery store and his caregiver to a female with multiple sclerosis. He has retired recently. Current progression of symptoms is causing significant anxiety. Due to progressive symptomatology the risks, benefits and procedure of cardiac catheterization plus or minus coronary intervention were discussed including but not limited to 1:1000 (more content not included)... [facility] 023 Adult depression screening assessment No -[facility] tracy 250 DO Work Phone: Tobacco use status [facility] a) Yes [facility] tracy 250 DO Work Phone: Tobacco Screening. Yes [facility] tracy 250 DO Work Phone: CBC AUTO DIFFon 04-19-2022 BASO # 0.1 103/ul Normal 0.0-0.1 [facility] Comment on above: Performed By: #### C BC #### [facility] [address] [place] [address] Dr. Amarjit Sanchez Basophils/100 WBC (Bld) 0.7 % Normal 0.2-2.0 [facility] Comment on above: Performed By: #### C BC #### [facility] [address] [place] [address] Dr. Amarjit Sanchez EO # 0.3 103/ul Normal 0.0-0.7 [facility] Comment on above: Performed By: #### C BC #### [facility] [address] [place] [address] Dr. Amarjit Sanchez Eosinophils/100 WBC (Bld) 2.4 % Normal 0.9-7.0 [facility] Comment on above: Performed By: #### C BC #### [facility] [address] [place] [address] Dr. Amarjit Sanchez Erythrocyte distribution width (RBC) [Ratio] 12.9 % Normal 11.0-15.0 [facility] Comment on above: Performed By: #### C BC #### [facility] [address] [place] [address] Dr. Amarjit Sanchez Hematocrit (Bld) [Volume fraction] 43.5 % Normal 42.0-54.0 [facility] Comment on above: Performed By: #### C BC #### [facility] [address] [place] [address] Dr. Amarjit Sanchez Hemoglobin (Bld) [Mass/Vol] 14.8 g/dL Normal 14.0-18.0 [facility] Comment on above: Performed By: #### C BC #### [facility] [address] [place] [address] Dr. Amarjit Sanchez IG # 0.23 10e3/ul Critically high 0.00-0.03 [facility] Comment on above: Performed By: #### C BC #### [facility] [address] [place] [address] Dr. Amarjit Sanchez IG % 1.7 % Critically high 0.0-0.5 [facility] Comment on above: Performed By: #### C BC #### [facility] [address] [place] [address] Dr. Amarjit Sanchez LYMPH # 4.5 103/ul Critically high 1.2-3.8 [facility] Comment on above: Performed By: #### C BC #### [facility] [address] [place] [address] Dr. Amarjit Sanchez Lymphocytes/100 WBC (Bld) 34.0 % Normal 20.5-60.0 [facility] Comment on above: Performed By: #### C BC #### [facility] [address] [place] [address] Dr. Amarjit Sanchez MANUAL DIFF REQ NO Normal [facility] Comment on above: Performed By: #### C BC #### [facility] [address] [place] [address] Dr. Amarjit Sanchez MCH (RBC) [Entitic mass] 31.7 pg Normal 25.9-34.0 [facility] Comment on above: Performed By: #### C BC #### [facility] [address] [place] [address] Dr. Amarjit Sanchez MCHC (RBC) [Mass/Vol] 34.0 g/dL Normal 29.9-35.2 [facility] Comment on above: Performed By: #### C BC #### [facility] [address] [place] [address] Dr. Amarjit Sanchez MCV (RBC) [Entitic vol] 93.1 fL Normal 80.0-94.0 [facility] Comment on above: Performed By: #### C BC #### [facility] [address] [place] [address] Dr. Amarjit Sanchez MONO # 0.8 103/ul Normal 0.3-0.8 [facility] Comment on above: Performed By: #### C BC #### [facility] [address] [place] [address] Dr. Amarjit Sanchez Monocytes/100 WBC (Bld) 5.9 % Normal 1.7-12.0 [facility] Comment on above: Performed By: #### C BC #### [facility] [address] [place] [address] Dr. Amarjit Sanchez NEUT # 7.4 103/ul Critically high 1.4-6.5 [facility] Comment on above: Performed By: #### C BC #### [facility] [address] [place] [address] Dr. Amarjit Sanchez Neutrophils/100 WBC (Bld) 55.3 % Normal 43.0-75.0 [facility] Comment on above: Performed By: #### C BC #### [facility] [address] [place] [address] Dr. Amarjit Sanchez Platelet mean volume (Bld) [Entitic vol] 9.3 fL Critically low 9.5-13.5 [facility] Comment on above: Performed By: #### C BC #### [facility] [address] [place] [address] Dr. Amarjit Sanchez PLT 222 103/ul Normal 150-[address] [facility] Comment on above: Performed By: #### C BC #### [facility] [address] [place] [address] Dr. Amarjit Sanchez RBC 4.67 106/ul Critically low 4.70-6.[address] [facility] Comment on above: Performed By: #### C BC #### [facility] [address] [place] [address] Dr. Amarjit Sanchez WBC 13.3 103/ul Critically high 4.0-11.[address] [facility] Comment on above: Performed By: #### C BC #### [facility] [address] [place] [address] Dr. Amarjit Sanchez GLYCOHEMOGLOBIN A1Con 2021 ADA RECOMMENDATION SEE BELOW Normal [facility] Comment on above: Result Comment: ADA RECOMMENDED LIMIT 4.0 - 6.0 ADA THERAPEUTIC TARGET < 7.0 ACTION SUGGESTED > 7.0 Performed By: #### A 1C #### [facility] [address] [place] [address] Dr. Amarjit Sanchez Glucose [Mass/Vol] 194 mg/dL Normal [facility] Comment on above: Performed By: #### A 1C #### [facility] [address] [place] [address] Dr. Amarjit Sanchez HbA1c (Bld) [Mass fraction] 8.4 % Critically high 4.5-6.[address] [facility] Comment on above: Performed By: #### A 1C #### [facility] [address] [place] [address] Dr. Amarjit Sanchez MICROALBUMIN, RAND URon 04-08 mALB <1.3 Normal <=30.[address] [facility] Comment on above: Performed By: #### M ALBR #### [facility] [address] [place] [address] Dr. Amarjit Sanchez PROF 14(COMP METB)on 022 Albumin [Mass/Vol] 4.0 g/dL Normal 3.4-5.[address] [facility] Comment on above: Performed By: #### C MP #### [facility] [address] [place] [address] Dr. Amarjit Sanchez Albumin/Globulin [Mass ratio] 1.2 {ratio} Normal [facility] Comment on above: Performed By: #### C MP #### [facility] [address] [place] [address] Dr. Amarjit Sanchez ALP [Catalytic activity/Vol] 74 U/L Normal 46-116 [facility] Comment on above: Performed By: #### C MP #### [facility] [address] [address] [address] Amarjit Sanchez ALT [Catalytic activity/Vol] 56 U/L Normal 16-63 [facility] Comment on above: Performed By: #### C MP #### [facility] [address] [place] [address] Dr. Amarjit Sanchez Anion gap [Moles/Vol] 15.5 mmol/L Normal [facility] Comment on above: Performed By: #### C MP #### [facility] [address] [place] [address] Dr. Amarjit Sanchez AST [Catalytic activity/Vol] 30 U/L Normal 15-37 [facility] Comment on above: Performed By: #### C MP #### [facility] [address] [place] [address] Dr. Amarjit Sanchez Bilirubin [Mass/Vol] 0.4 mg/dL Normal 0.2-1.0 [facility] Comment on above: Performed By: #### C MP #### [facility] [address] [place] [address] Dr. Amarjit Sanchez Calcium [Mass/Vol] 8.8 mg/dL Normal 8.5-10.1 [facility] Comment on above: Performed By: #### C MP #### [facility] [address] [place] [address] Dr. Amarjit Sanchez Chloride [Moles/Vol] 103 mmol/L Normal 98-[address] [facility] Comment on above: Performed By: #### C MP #### [facility] [address] [place] [address] Dr. Amarjit Sanchez CO2 [Moles/Vol] 24.4 mmol/L Normal 21.0-32.0 [facility] Comment on above: Performed By: #### C MP #### [facility] [address] [place] [address] Dr. Amarjit Sanchez Creatinine [Mass/Vol] 1.11 mg/dL Normal 0.70-1.30 [facility] Comment on above: Performed By: #### C MP #### [facility] [address] [place] [address] Dr. Amarjit Sanchez EGFR-AF [place]IZ[place] >60 Normal >=60 [facility] Comment on above: Performed By: #### C MP #### [facility] [address] [address] [address] Amarjit Sanchez EGFR-NON AF [place] >60 Normal >=60 [facility] Comment on above: Performed By: #### C MP #### [facility] [address] [address] [address] Amarjit Sanchez Globulin (S) [Mass/Vol] 3.3 g/dL Normal [facility] Comment on above: Performed By: #### C MP #### [facility] [address] [place] [address] Dr. Amarjit Sanchez Glucose [Mass/Vol] 113 mg/dL Critically high 74-106 [facility] Comment on above: Performed By: #### C MP #### [facility] [address] [address] [address] Amarjit Sanchez Potassium [Moles/Vol] 4.9 mmol/L Normal 3.5-5.1 [facility] Comment on above: Performed By: #### C MP #### [facility] [address] [place] [address] Dr. Amarjit Sanchez Protein [Mass/Vol] 7.3 g/dL Normal 6.4-8.2 [facility] Comment on above: Performed By: #### C MP #### [facility] [address] [place] [address] Dr. Amarjit Sanchez Sodium [Moles/Vol] 138 mmol/L Normal 136-145 [facility] Comment on above: Performed By: #### C MP #### [facility] [address] [place] [address] Dr. Amarjit Sanchez Urea nitrogen [Mass/Vol] 20.0 mg/dL Critically high 7.0-18.0 [facility] Comment on above: Performed By: #### C MP #### [facility] [address] [place] [address] Dr. Amarjit Sanchez Urea nitrogen/Creatinine [Mass ratio] 18.0 mg/mg Normal [facility] Comment on above: Performed By: #### C MP #### [facility] [facility] [address] [place], [place] [address] Dr. Amarjit Sanchez No Panel Informationon 09-14 [facility] tracy 250 DO Work Phone: STR cardiac stress/lexiscano n 09-14-2021 STR cardiac stress/lexiscan [facility] [address] [place] [id number] Cardiac Stress Test Signed Patient: Roxane Bonner MR#: [id number] 032 : 1960 Acct:[id number] Age/Sex: 60 / M ADM Date: 09/07/21 Loc: Room: Type: [facility] Attending Dr: Bridget Paige DO Copies to: Mildred Wray MD, [facility] Bridget Paige DO Ordering Provider: Bridget Paige DO Date of Service: 09/07/21 STR/STR cardiac stress/lexiscan: see order ORDERED BY: Bridget Paige DO 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 Resting EKG revealed normal sinus rhythm with a rate of 74 beats per minute. Resting blood pressure 135/96 mmHg. Following intravenous administration of 400 mcg of Lexiscan over 10 seconds, no ischemic changes were noted. The patient had no chest pain, and there were no cardiac arrhythmias induced. Cardiolite study followed. CONCLUSION: 1. No Lexiscan-induced ischemic EKG changes, chest pain or cardiac arrhythmias. 2. Cardiolite studies to be reported separately by nuclear cardiology. Transcribed By: NTS 09/15/21 1149 Dictated By: Mildred Wray MD, [facility] 09/14/21 1418 Signed By: 09/15/21 1218 Normal [facility] NM laura perf SPECT rest stron 09-13-2021 NM laura perf SPECT rest str [address] [address] Nuclear Medicine Report Signed Patient: Roxane Bonner MR#: [id number] 032 : 1960 Acct:[id number] Age/Sex: 60 / M ADM Date: 09/07/21 Loc: Room: Type: [facility] Attending Dr: Bridget Paige DO Ordering Provider: Bridget Paige DO Date of Service: 09/07/21 NM/NM laura perf SPECT rest str: [facility] HYPERTENSION Copies to: DO Bridget Stephen DO Mourhaf A Traboulssi, MD REFERRING PHYSICIAN: Bridget Paige DO REASON FOR STUDY: Coronary artery disease and hypertension. PROCEDURE: Rest images obtained by injecting 28.1 mCi of Cardiolite. Stress images obtained by injecting 28.9 mCi of Cardiolite. Subsequently, gated SPECT and ejection fraction studies were performed. IMAGING RESULT: This appears to be fair study. It appears to be normal. There is no clear pattern of ischemia or myocardial infarction. Left ventricular ejection fraction appears normal, calculated at 62%. TID index normal at 1.05. CONCLUSION: 1. No clear pattern of ischemia or myocardial infarction. 2. Normal left ventricular systolic function and wall motion. 3. No previous study available for comparison. Transcribed By: NTS 09/13/21 7175 Dictated By: Jones Mcdermott MD 09/13/21 1112 Signed By: 09/14/21 1132 [facility] No Panel Informationon 09-13 Normal [facility] tracy 250 DO Work Phone: Tobacco Screening.on 022 Adult depression screening assessment No [facility] 250 DO Work Phone: Tobacco use status CPHS a) Yes [facility]-Sand tracy 250 DO Work Phone: Tobacco Screening. Yes [facility]-Sandu tracy 250 DO Work Phone: CBC AUTO DIFFon 07-30-2021 BASO # 0.1 103/ul Normal 0.0-0.[address] [facility] Comment on above: Performed By: #### C BC #### [facility] [address] [place] [address] Dr. Amarjit Sanchez Basophils/100 WBC (Bld) 0.8 % Normal 0.2-2.0 [facility] Comment on above: Performed By: #### C BC #### [facility] [address] [place] [address] Dr. Amarjit Sanchez EO # 0.5 103/ul Normal 0.0-0.[address] [facility] Comment on above: Performed By: #### C BC #### [facility] [address] [place] [address] Dr. Amarjit Sanchez Eosinophils/100 WBC (Bld) 6.2 % Normal 0.9-7.[address] [facility] Comment on above: Performed By: #### C BC #### [facility] [address] [place] [address] Dr. Amarjit Sanchez Erythrocyte distribution width (RBC) [Ratio] 12.9 % Normal 11.0-15.0 [facility] Comment on above: Performed By: #### C BC #### [facility] [address] [place] [address] Dr. Amarjit Sanchez Hematocrit (Bld) [Volume fraction] 43.6 % Normal 42.0-54.0 [facility] Comment on above: Performed By: #### C BC #### [facility] [address] [place] [address] Dr. Amarjit Sanchez Hemoglobin (Bld) [Mass/Vol] 14.6 g/dL Normal 14.0-18.[address] [facility] Comment on above: Performed By: #### C BC #### [facility] [address] [place] [address] Dr. Amarjit Sanchez IG # 0.04 10e3/ul Critically high 0.00-0.[address] [facility] Comment on above: Performed By: #### C BC #### [facility] [address] [place] [address] Dr. Amarjit Sanchez IG % 0.5 % Normal 0.0-0.[address] [facility] Comment on above: Performed By: #### C BC #### [facility] [address] [place] [address] Dr. Amarjit Sanchez LYMPH # 4.2 103/ul Critically high 1.2-3.8 [facility] Comment on above: Performed By: #### C BC #### [facility] [address] [place] [address] Dr. Amarjit Sanchez Lymphocytes/100 WBC (Bld) 51.2 % Normal 20.5-60.0 [facility] Comment on above: Performed By: #### C BC #### [facility] [address] [place] [address] Dr. Amarjit Sanchez MANUAL DIFF REQ NO Normal [facility] Comment on above: Performed By: #### C BC #### [facility] [address] [place] [address] Dr. Amarjit Sanchez MCH (RBC) [Entitic mass] 32.4 pg Normal 25.9-34.0 [facility] Comment on above: Performed By: #### C BC #### [facility] [address] [place] [address] Dr. Amarjit Sanchez MCHC (RBC) [Mass/Vol] 33.5 g/dL Normal 29.9-35.2 [facility] Comment on above: Performed By: #### C BC #### [facility] [address] [place] [address] Dr. Amarjit Sanchez MCV (RBC) [Entitic vol] 96.9 fL Critically high 80.0-94.0 [facility] Comment on above: Performed By: #### C BC #### [facility] [address] [place] [address] Dr. Amarjit Sanchez MONO # 0.7 103/ul Normal 0.3-0.[address] [facility] Comment on above: Performed By: #### C BC #### [facility] [address] [place] [address] Dr. Amarjit Sanchez Monocytes/100 WBC (Bld) 8.5 % Normal 1.7-12.0 [facility] Comment on above: Performed By: #### C BC #### [facility] [address] [place] [address] Dr. Amarjit Sanchez NEUT # 2.7 103/ul Normal 1.4-6.5 [facility] Comment on above: Performed By: #### C BC #### [facility] [address] [place] [address] Dr. Amarjit Sanchez Neutrophils/100 WBC (Bld) 32.8 % Critically low 43.0-75.0 [facility] Comment on above: Performed By: #### C BC #### [facility] [address] [place] [address] Dr. Amarjit Sanchez Platelet mean volume (Bld) [Entitic vol] 10.1 fL Normal 9.5-13.[address] [facility] Comment on above: Performed By: #### C BC #### [facility] [address] [place] [address] Dr. Amarjit Sanchez PLT 222 103/ul Normal 150-[address] [facility] Comment on above: Performed By: #### C BC #### [facility] [address] [place] [address] Dr. Amarjit Sanchez RBC 4.50 106/ul Critically low 4.70-6.[address] [facility] Comment on above: Performed By: #### C BC #### [facility] [address] [place] [address] Dr. Amarjit Sanchez WBC 8.2 103/ul Normal 4.0-11.[address] [facility] Comment on above: Performed By: #### C BC #### [facility] [address] [place] [address] Dr. Amarjit Sanchez GLYCOHEMOGLOBIN A1Con 2021 ADA RECOMMENDATION ADA THERAPEUTIC TARG ET 6.0 - 7.0 ACTION SUGGESTED > 7.0 Normal [facility] Comment on above: Performed By: #### A 1C #### [facility] [address] [place] [address] Dr. Amarjit Sanchez Glucose [Mass/Vol] 197 mg/dL Normal [facility] Comment on above: Performed By: #### A 1C #### [facility] [address] [place] [address] Dr. Amarjit Sanchez HbA1c (Bld) [Mass fraction] 8.5 % Critically high <=6.[address] [facility] Comment on above: Performed By: #### A 1C #### [facility] [address] [place] [address] Dr. Amarjit Sanchez MICROALBUMIN, RAND URon 07-08 mALB <1.3 Normal <=30.0 [facility] Comment on above: Performed By: #### M ALBR #### [facility] [address] [place] [address] Dr. Amarjit Sanchez PROF 14(COMP METB)on 022 Albumin [Mass/Vol] 4.3 g/dL Normal 3.4-5.0 [facility] Comment on above: Performed By: #### C MP #### [facility] [address] [place] [address] Dr. Amarjit Sanchez Albumin/Globulin [Mass ratio] 1.3 {ratio} Normal [facility] Comment on above: Performed By: #### C MP #### [facility] [address] [place] [address] Dr. Amarjit Sanchez ALP [Catalytic activity/Vol] 86 U/L Normal 46-116 [facility] Comment on above: Performed By: #### C MP #### [facility] [address] [place] [address] Dr. Amarjit Sanchez ALT [Catalytic activity/Vol] 54 U/L Normal 16-63 [facility] Comment on above: Performed By: #### C MP #### [facility] [address] [place] [address] Dr. Amarjit Sanchez Anion gap [Moles/Vol] 12.2 mmol/L Normal Th e [facility] Comment on above: Performed By: #### C MP #### [facility] [address] [place] [address] Dr. Amarjit Sanchez AST [Catalytic activity/Vol] 33 U/L Normal 15-37 [facility] Comment on above: Performed By: #### C MP #### [facility] [address] [place] [address] Dr. Amarjit Sanchez Bilirubin [Mass/Vol] 0.3 mg/dL Normal 0.2-1.3 [facility] Comment on above: Performed By: #### C MP #### [facility] [address] [place] [address] Dr. Amarjit Sanchez Calcium [Mass/Vol] 9.3 mg/dL Normal 8.5-10.1 [facility] Comment on above: Performed By: #### C MP #### [facility] [address] [place] [address] Dr. Amarjit Sanchez Chloride [Moles/Vol] 103 mmol/L Normal 98-107 [facility] Comment on above: Performed By: #### C MP #### [facility] [address] [place] [address] Dr. Amarjit Sanchez CO2 [Moles/Vol] 28.3 mmol/L Normal 22.0-30.0 [facility] Comment on above: Performed By: #### C MP #### [facility] [address] [place] [address] Dr. Amarjit Sanchez Creatinine [Mass/Vol] 1.17 mg/dL Normal 0.66-1.25 [facility] Comment on above: Performed By: #### C MP #### [facility] [address] [place] [address] Dr. Amarjit Sanchez EGFR-AF [place]IZ[place] >60 Normal >=60 [facility] Comment on above: Performed By: #### C MP #### [facility] [address] [place] [address] Dr. Amarjit Sanchez EGFR-NON AF [place] >60 Normal >=60 [facility] Comment on above: Performed By: #### C MP #### [facility] [address] [place] [address] Dr. Amarjit Sanchez Globulin (S) [Mass/Vol] 3.3 g/dL Normal [facility] Comment on above: Performed By: #### C MP #### [facility] [address] [place] [address] Dr. Amarjit Sanchez Glucose [Mass/Vol] 118 mg/dL Critically high 74-106 T [facility] Comment on above: Performed By: #### C MP #### [facility] [address] [place] [address] [address] Amarjit Sanchez Potassium [Moles/Vol] 4.5 mmol/L Normal 3.4-5.0 [facility] Comment on above: Performed By: #### C MP #### [facility] [address] [place] [address] [address] Amarjit Sanchez Protein [Mass/Vol] 7.6 g/dL Normal 6.1-8.2 [facility] Comment on above: Performed By: #### C MP #### [facility] [address] [place] [address] [address] Amarjit Sanchez Sodium [Moles/Vol] 139 mmol/L Normal 137-145 [facility] Comment on above: Performed By: #### C MP #### [facility] [address] [place] [address] [address] Amarjit Sanchez Urea nitrogen [Mass/Vol] 19.0 mg/dL Critically high 7.0-18.0 [facility] Comment on above: Performed By: #### C MP #### [facility] [address] [place] [address] [address] Amarjit Sanchez Urea nitrogen/Creatinine [Mass ratio] 16.2 mg/mg Normal [facility] Comment on above: Performed By: #### C MP #### [facility] [address] [place] [address] [address] Amarjit Sanchez US RENAL COMPLETEon 10-29-19 RENAL COMPLETE EXAMINATION: ULTRASOUND OF THE KIDNEYS AND BLADDER 10/28/2020 10:26 am COMPARISON: None. Abdominopelvic CT scan 12/05/2019 HISTORY: ORDERING SYSTEM PROVIDED HISTORY: Stage 3a chronic kidney disease (HCC) TECHNOLOGIST PROVIDED HISTORY: Please check post void residual For cortical thickness, renal size and corticomedullary differentiation. FINDINGS: The right kidney measures 11.1 cm in length and the left kidney measures 11.9 cm in length. No suspicious renal mass or hydronephrosis is appreciated. The left kidney demonstrates 2 simple appearing cysts, the larger measuring 3.9 cm x 4.1 cm x 3.7 cm. Left-sided nephrolithiasis is redemonstrated. Normal renal cortical echogenicity. Prevoid urinary bladder volume 702 mL. Postvoid urinary bladder volume 4 mL. Ureteral jets were visualized bilaterally. No focal urinary bladder wall abnormality was appreciated. IMPRESSION: Left renal cortical cysts are noted with nonobstructing stones as well. Otherwise unremarkable sonographic appearance of the kidneys. Unremarkable ultrasound of the bladder. Interpreted by: Iggy Valero MD Signed by: Iggy Valero MD 10/28/20 Final result Normal [facility] US RENAL COMPLETEOrdered By: Pratik Miranda on 10-28-2020 Left renal cortical cysts are noted with nonobstructing stones as well. Otherwise unremarkable sonographic appearance of the kidneys. Unremarkable ultrasound of the bladder. [facility] Phone: EXAMINATION: ULTRASO UND OF THE KIDNEYS AND BLADDER 10/28/2020 10:26 am COMPARISON: None. Abdominopelvic CT scan 12/05/2019 HISTORY: ORDERING SYSTEM PROVIDED HISTORY: Stage 3a chronic kidney disease (HCC) TECHNOLOGIST PROVIDED HISTORY: Please check post void residual For cortical thickness, renal size and corticomedullary differentiation. FINDINGS: The right kidney measures 11.1 cm in length and the left kidney measures 11.9 cm in length. No suspicious renal mass or hydronephrosis is appreciated. The left kidney demonstrates 2 simple appearing cysts, the larger measuring 3.9 cm x 4.1 cm x 3.7 cm. Left-sided nephrolithiasis is redemonstrated. Normal renal cortical echogenicity. Prevoid urinary bladder volume 702 mL. Postvoid urinary bladder volume 4 mL. Ureteral jets were visualized bilaterally. No focal urinary bladder wall abnormality was appreciated. [facility] Phone: [place], [facility] Incoming Radiant Results From [facility] - 10/28/2020 9:54 PM EDT EXAMINATION: ULTRASOUND OF THE KIDNEYS AND BLADDER 10/28/2020 10:26 am COMPARISON: None. Abdominopelvic CT scan 12/05/2019 HISTORY: ORDERING SYSTEM PROVIDED HISTORY: Stage 3a chronic kidney disease (HCC) TECHNOLOGIST PROVIDED HISTORY: Please check post void residual For cortical thickness, renal size and corticomedullary differentiation. FINDINGS: The right kidney measures 11.1 cm in length and the left kidney measures 11.9 cm in length. No suspicious renal mass or hydronephrosis is appreciated. The left kidney demonstrates 2 simple appearing cysts, the larger measuring 3.9 cm x 4.1 cm x 3.7 cm. Left-sided nephrolithiasis is redemonstrated. Normal renal cortical echogenicity. Prevoid urinary bladder volume 702 mL. Postvoid urinary bladder volume 4 mL. Ureteral jets were visualized bilaterally. No focal urinary bladder wall abnormality was appreciated. IMPRESSION: Left renal cortical cysts are noted with nonobstructing stones as well. Otherwise unremarkable sonographic appearance of the kidneys. Unremarkable ultrasound of the bladder. [facility] [employer] Work Phone: [facility] [employer] Phone: DEVONTE Screen w/reflexon 2020 DEVONTE Screen Negative Normal NEG [facility] Comment on above: Performed By: #### F KLLC, C3, C4, ANAX, PE, IFX, PHEP #### [facility] [employer] [address] [place] [id number] Activities Specialist: Rohan Mitchell MD #### BRICE MENDOZA, URI #### [facility] [address] [place], [place] [id number] Activities Specialist: William Ayala DO Anti-dsDNA <0.5 Normal <10.0 [facility] Comment on above: Result Comment: Reference Range: <10.0 Negative 10.0-15.0 Equivocal >15.0 Positive Performed By: #### F KLLC, C3, C4, ANAX, PE, IFX, PHEP #### [facility] [employer] [address] [place] [id number] Activities Specialist: Rohan Mitchell MD #### BRICE MENDOZA, URI #### [facility] [address] [place] [address] Activities Specialist: William Ayala DO LOIS Screen 0.2 U/mL Normal <0.7 [facility] Comment on above: Result Comment: Reference Range: <0.7 Negative 0.7-1.0 Equivocal >1.0 Positive LOIS Screen includes U1RNP,RNP70,Sm,Ro(SS-A),La(SS-B),CENP,Scl-70,Kassi-1 Performed By: #### F KLLC, C3, C4, ANAX, PE, IFX, PHEP #### [address] [address] Activities Specialist: Rohan Mitchell MD #### BRICE MENDOZA, URI #### [facility] [place] [address] Activities Specialist: William Ayala DO Immunofixation,[facility] 10-24 IFX - Interpret. IMMUNOFIXATION IS NEGATIVE FOR MONOCLONAL IMMUNOGLOBULIN. [facility] Comment on above: Performed By: #### F KLLC, C3, C4, ANAX, PE, IFX, PHEP #### [address] [address] Activities Specialist: Rohan Mitchell MD #### BRICE MENDOZA, URI #### [facility] [address] [place] [address] Activities Specialist: William Ayala DO Pathologist Review: ELECTRONICALLY EDMUNDO NEWBERYR M.D. [facility] Comment on above: Performed By: #### F KLLC, C3, C4, ANAX, PE, IFX, PHEP #### [address] [address] Activities Specialist: Rohan Mitchell MD #### BRICE MENDOZA, URI #### [facility] [address] [place] [address] Activities Specialist: William Ayala DO Prot. Electroph, Blon 2020 Pathologist Review: ELECTRONICALLY EDMUNDO NEWBERRY M.D. [facility] Comment on above: Performed By: #### F KLLC, C3, C4, ANAX, PE, IFX, PHEP #### [address] [address] Activities Specialist: Rohan Mitchell MD #### REJI, BRICE, URI #### [facility] [place] [address] Activities Specialist: William Ayala DO Prot. Elect-Interp NORMAL ELECTROPHORET IC PATTERN Normal [facility] Comment on above: Result Comment: GAMM AGLOBULINS ARE LOW NORMAL. IMMUNOFIXATION IS NEGATIVE FOR MONOCLONAL IMMUNOGLOBULIN. Performed By: #### F KLLC, C3, C4, ANAX, PE, IFX, PHEP #### [address] [address] Activities Specialist: Rohan Mitchell MD #### BRICE MENDOZA, URI #### [facility] [address] [place] [address] Activities Specialist: William Ayala DO Total Prot. Sum 6.5 g/dL Normal 6.3-8.2 [facility] Comment on above: Performed By: #### F KLLC, C3, C4, ANAX, PE, IFX, PHEP #### [address] [address] Activities Specialist: Rohan Mitchell MD #### REJI, BRICE, URI #### [facility] [place] [address] Activities Specialist: William Ayala DO Total Prot. Sum,% 101 % Normal 98-102 [facility] Comment on above: Performed By: #### F KLLC, C3, C4, ANAX, PE, IFX, PHEP #### [address] [address] Activities Specialist: Rohan Mitchell MD #### REJI, BMP, URI #### [facility] [address] [place] [address] Activities Specialist: William Ayala DO Albumin [Mass/Vol] 4.6 g/dL Normal 3.2-5.2 [facility] Comment on above: Performed By: #### F KLLC, C3, C4, ANAX, PE, IFX, PHEP #### [address] [address] Activities Specialist: Rohan Mitchell MD #### BRICE MENDOZA, URI #### [facility] [place] [address] Activities Specialist: William Ayala DO Albumin, % 70 % High 45-65 [facility] Comment on above: Performed By: #### F KLLC, C3, C4, ANAX, PE, IFX, PHEP #### [address] [address] Activities Specialist: Rohan Mitchell MD #### BRICE MENDOZA, URI #### [facility] [address] [place] [address] Activities Specialist: William Ayala DO Tmwbo-3-alsflvtkx 0.1 g/dL Normal 0.1-0.4 [facility] Comment on above: Performed By: #### F KLLC, C3, C4, ANAX, PE, IFX, PHEP #### [address] [address] Activities Specialist: Rohan Mitchell MD #### REJI, BRICE, URI #### [facility] [address] [place] [address] Activities Specialist: William Ayala DO Uparw-3-mcdmzrede,% 2 % Low 3-6 [facility] Comment on above: Performed By: #### F KLLC, C3, C4, ANAX, PE, IFX, PHEP #### [address] [address] Activities Specialist: Rohan Mitchell MD #### CDP, BMP, URI #### [facility] [address] [place] [address] Activities Specialist: William Ayala DO Dnbnw-1-vqqxnlhbm 0.6 g/dL Normal 0.5-0.9 [facility] Comment on above: Performed By: #### F KLLC, C3, C4, ANAX, PE, IFX, PHEP #### [address] [address] Activities Specialist: Rohan Mitchell MD #### REJI, BMP, URI #### [facility] [address] [place] [address] Activities Specialist: William Ayala DO Ofilt-8-cncaxwcwf,% 10 % Normal 6-13 [facility] Comment on above: Performed By: #### F KLLC, C3, C4, ANAX, PE, IFX, PHEP #### [address] [address] Activities Specialist: Rohan Mitchell MD #### CDP, BMP, URI #### [facility] [address] [place] [address] Activities Specialist: William Ayala DO Beta-globulins 0.7 g/dL Normal 0.5-1.1 [facility] Comment on above: Performed By: #### F KLLC, C3, C4, ANAX, PE, IFX, PHEP #### [address] [address] Activities Specialist: Rohan Mitchell MD #### CDP, BMP, URI #### [facility] [address] [place], [place] [address] [place] [address] Activities Specialist: William Ayala DO Beta-globulins,% 11 % Normal 11-19 [facility] Comment on above: Performed By: #### F KLLC, C3, C4, ANAX, PE, IFX, PHEP #### [address] [address] Activities Specialist: Rohan Mitchell MD #### CDP, BMP, URI #### [facility] [address] [place] [address] Activities Specialist: William Ayala DO Gamma-globulins 0.5 g/dL Normal 0.5-1.5 [facility] Comment on above: Performed By: #### F KLLC, C3, C4, ANAX, PE, IFX, PHEP #### [address] [address] Activities Specialist: Rohan Mitchell MD #### CDP, BMP, URI #### [facility] [address] [place] [address] Activities Specialist: William Ayala DO Gamma-globulins,% 8 % Low 9-20 [facility] Comment on above: Performed By: #### F KLLC, C3, C4, ANAX, PE, IFX, PHEP #### [address] [address] Activities Specialist: Rohan Mitchell MD #### CDP, BMP, URI #### [facility] [address] [place] [address] Activities Specialist: William Ayala DO Prot. Electroph, Uron 2020 Pathologist Review: ELECTRONICALLY EDMUNDO NEWBERRY M.D. Normal [facility] Comment on above: Performed By: #### F KLLC, C3, C4, ANAX, PE, IFX, PHEP #### [facility] [address] [place] [address] Activities Specialist: Rohan Mitchell MD #### REJI, BRICE, URI #### [facility] [address] [place] [address] Activities Specialist: William Ayala DO Ur.-Prot.Elect-Inter NORMAL ELECTROPHORE TIC PATTERN Normal [facility] Comment on above: Performed By: #### F KLLC, C3, C4, ANAX, PE, IFX, PHEP #### [facility] [address] [place] [address] Activities Specialist: Rohan Mitchell MD #### REJI, BRICE, URI #### [facility] [address] [place] [address] Activities Specialist: William Ayala DO Basic Metabolic PanelOrdered By: Pratik Miranda on 10-23-2020 Anion gap [Moles/Vol] 9 mmol/L 9 - 17 mmol/L [facility] Phone: Calcium [Mass/Vol] 9.4 mg/dL 8.6 - 10. 4 mg/dL [facility] Phone: Chloride [Moles/Vol] 102 mmol/L 98 - 10 7 mmol/L [facility] Phone: CO2 [Moles/Vol] 27 mmol/L 20 - 31 mmol/L [facility] Phone: Creatinine [Mass/Vol] 1.13 mg/dL 0.70 - 1.20 mg/dL [facility] Phone: GFR >60 >60 mL/min [employer] Phone: GFR Non- >60 >60 mL/min [facility] Phone: GFR/1.73 sq M.predicted MDRD (S/P/Bld) [Vol rate/Area] [facility] Phone: Comment on above: Average GFR for 60-6 9 years old: 85 mL/min/1.73sq m Chronic Kidney Disease: <60 mL/min/1.73sq m Kidney failure: <15 mL/min/1.73sq m eGFR calculated using average adult body mass. Additional eGFR calculator available at: http://www.[employer]/Etsy_crcl_2012.htm GFR/1.73 sq M.predicted MDRD (S/P/Bld) [Vol rate/Area] NOT REPORTED [facility] Phone: Glucose [Mass/Vol] 234 mg/dL High 70 - 99 mg/dL [facility] Phone: Interpretation and review of laboratory results Abnormal [facility] Phone: Potassium [Moles/Vol] 5.3 mmol/L 3.7 - 5.3 mmol/L [facility] Phone: Sodium [Moles/Vol] 138 mmol/L 135 - 144 mmol/L [facility] Phone: Urea nitrogen (BldV) [Mass/Vol] 14 mg/dL 8 - 23 mg/dL [facility] Phone: Urea nitrogen/Creatinine (Bld) [Mass ratio] NOT REPORTED [facility] Phone: Basic Metabolic Profon 10-23 (cont.) Normal [facility] Comment on above: Result Comment: Aver age GFR for 60-69 years old: 85 mL/min/1.73sq m Chronic Kidney Disease: <60 mL/min/1.73sq m Kidney failure: <15 mL/min/1.73sq m eGFR calculated using average adult body mass. Additional eGFR calculator available at: http://www.[employer]/multiple_crcl_2011.htm Performed By: #### F KLLC, C3, C4, ANAX, PE, IFX, PHEP #### [address] [address] Activities Specialist: Rohan Mitchell MD #### CDP, BMP, URI #### [facility] [address] [place] [address] Activities Specialist: William Ayala DO Anion gap [Moles/Vol] 9 mmol/L Normal 9-17 [facility] Comment on above: Performed By: #### F KLLC, C3, C4, ANAX, PE, IFX, PHEP #### [address] [address] Activities Specialist: Rohan Mitchell MD #### REJI, BMP, URI #### [facility] [address] [place] [address] Activities Specialist: William Ayala DO Calcium [Mass/Vol] 9.4 mg/dL Normal 8.6-10.4 [facility] Comment on above: Performed By: #### F KLLC, C3, C4, ANAX, PE, IFX, PHEP #### [address] [address] Activities Specialist: Rohan Mitchell MD #### REJI, BMP, URI #### [facility] [address] [place] [address] Activities Specialist: William Ayala DO Chloride [Moles/Vol] 102 mmol/L Normal 98-107 [facility] Comment on above: Performed By: #### F KLLC, C3, C4, ANAX, PE, IFX, PHEP #### [address] [address] Activities Specialist: Rohan Mitchell MD #### CDP, BMP, URI #### [facility] [address] [place] [address] Activities Specialist: William Ayala DO CO2 [Moles/Vol] 27 mmol/L Normal 20-31 [facility] Comment on above: Performed By: #### F KLLC, C3, C4, ANAX, PE, IFX, PHEP #### [address] [address] Activities Specialist: Rohan Mitchell MD #### REJI, BRICE, URI #### [facility] [address] [place] [address] Activities Specialist: William Ayala DO Creatinine [Mass/Vol] 1.13 mg/dL Normal 0.70-1.20 [facility] Comment on above: Performed By: #### F KLLC, C3, C4, ANAX, PE, IFX, PHEP #### [address] [address] Activities Specialist: Rohan Mitchell MD #### REJI, BMP, URI #### [facility] [address] [place] [address] Activities Specialist: William Ayala DO GFR, Amer >60 Normal >60 [facility] Comment on above: Performed By: #### F KLLC, C3, C4, ANAX, PE, IFX, PHEP #### [address] [address] Activities Specialist: Rohan Mitchell MD #### CDP, BMP, URI #### [facility] [address] [place] [address] Activities Specialist: William Ayala DO GFR,non Amer >60 Normal >60 [facility] Comment on above: Performed By: #### F KLLC, C3, C4, ANAX, PE, IFX, PHEP #### [address] [address] Activities Specialist: Rohan Mitchell MD #### REJI, BRICE, URI #### [facility] [address] [place] [address] Activities Specialist: William Ayala DO Glucose [Mass/Vol] 234 mg/dL High 70-99 [facility] Comment on above: Performed By: #### F KLLC, C3, C4, ANAX, PE, IFX, PHEP #### [address] [address] Activities Specialist: Rohan Mitchell MD #### REJI, BRICE, URI #### [facility] [address] [place] [address] Activities Specialist: William Ayala DO Potassium [Moles/Vol] 5.3 mmol/L Normal 3.7-5.3 [facility] Comment on above: Performed By: #### F KLLC, C3, C4, ANAX, PE, IFX, PHEP #### [address] [address] Activities Specialist: Rohan Mitchell MD #### REJI, BRICE, URI #### [facility] [place] [address] Activities Specialist: William Ayala DO Sodium [Moles/Vol] 138 mmol/L Normal 135-144 [facility] Comment on above: Performed By: #### F KLLC, C3, C4, ANAX, PE, IFX, PHEP #### [address] [address] Activities Specialist: Rohan Mitchell MD #### REJI, BRICE, URI #### [facility] [place] [address] Activities Specialist: William Ayala DO Urea nitrogen [Mass/Vol] 14 mg/dL Normal 8-23 [facility] Comment on above: Performed By: #### F KLLC, C3, C4, ANAX, PE, IFX, PHEP #### [address] [address] Activities Specialist: Rohan Mitchell MD #### CDP, BMP, URI #### [facility] [place] [address] Activities Specialist: William Ayala DO BUN/CRE Ratio NOT REPORTED Normal 9-20 [facility] Comment on above: Performed By: #### F KLLC, C3, C4, ANAX, PE, IFX, PHEP #### [address] [address] Activities Specialist: Rohan Mitchell MD #### CDP, BMP, URI #### [facility] [address] [place] [address] Activities Specialist: William Ayala DO Staging: NOT REPORTED Normal [facility] Comment on above: Performed By: #### F KLLC, C3, C4, ANAX, PE, IFX, PHEP #### [address] [address] Activities Specialist: Rohan Mitchell MD #### CDP, BMP, URI #### [facility] [address] [place] [address] Activities Specialist: William Ayala DO C3on 10-23-2020 C3 133 mg/dL Normal 90-180 [facility] Comment on above: Performed By: #### F KLLC, C3, C4, ANAX, PE, IFX, PHEP #### [address] [address] Activities Specialist: Rohan Mitchell MD #### CDP, BMP, URI #### [facility] [address] [place] [phone] Activities Specialist: William Ayala DO C3 ComplementOrdered By: Howard amandaaydee [place] on 10-23-2020 Complement C3 133 mg/dL 90 - 180 mg/dL [facility] Phone: C4on 10-23-2020 C4 28 mg/dL Normal 10-40 [facility] Comment on above: Performed By: #### F KLLC, C3, C4, ANAX, PE, IFX, PHEP #### [facility] [address] [place], [place] [id number] Activities Specialist: Rohan Mitchell MD #### CDP, BMP, URI #### [facility] [address] [place], [place] [id number] Activities Specialist: William Ayala DO C4 ComplementOrdered By: Howard amandaaydee Miranda on 10-23-2020 Complement C4 28 mg/dL 10 - 40 mg/dL [facility] Phone: CBC Auto DifferentialOrdered By: Pratik Miranda on 10-23-2020 Absolute Eos # 0.40 [facility] Phone: Absolute Immature Granulocyte NOT REPORTED [facility] Phone: Absolute Lymph # 2.60 [facility] Phone: Absolute Pike # 0.70 [facility] Phone: Basophils (Bld) [#/Vol] 0.10 10*3/uL [facility] Phone: Basophils/100 WBC (Bld) 1 % 0 - 2 % [facility] Phone: Differential Type NOT REPORTED [facility] Phone: Eosinophils/100 WBC (Bld) 5 % High 0 - 4 % [facility] Phone: Hematocrit (Bld) [Volume fraction] 42.5 % 41 - 53 % [facility] Phone: Hemoglobin.gastrointes tinal spec 1 Ql (Stl) 13.9 g/dL 13.5 - 17.5 g/dL [facility] Phone: [phone] Immature Granulocytes NOT REPORTED 0 % [employer] Phone: Interpretation and review of laboratory results Abnormal [facility] Phone: Lymphocytes/100 WBC (Bld) 32 % 24 - 44 % [facility] Phone: MCH (RBC) [Entitic mass] 32.0 pg 26 - 34 pg [facility] Phone: MCHC (RBC) [Mass/Vol] 32.8 g/dL 31 - 37 g/dL [facility] [employer] Phone: MCV (RBC) [Entitic vol] 97.5 fL 80 - 100 fL [facility] Phone: Monocytes/100 WBC (Bld) 9 % High 1 - 7 % [facility] Phone: NRBC Automated NOT REPORTED per 100 WBC [facility] Phone: Platelet distribution width (Bld) [Ratio] 13.6 % 11.5 - 14.9 % [facility] Phone: Platelet Estimate NOT REPORTED [facility] Phone: Platelet mean volume (Bld) [Entitic vol] 7.0 fL 6.0 - 12.0 fL [facility] Phone: Platelets (Bld) [#/Vol] 241 10*3/uL [facility] Phone: RBC (Bld) [#/Vol] 4.36 10*6/uL Low 4.5 - 5.9 m/uL [facility] Phone: RBC (Bld) [#/Vol] NOT REPORTED [facility] Phone: Segmented neutrophils/100 WBC (Bld) 53 % 36 - 66 % [facility] Phone: Segs Absolute 4.30 [facility] Phone: WBC (Bld) [#/Vol] 8.0 10*3/uL [facility] Phone: WBC (Bld) [#/Vol] NOT REPORTED [facility] Phone: [facility] Phone: CBC with Diffon 10-23-2020 Abs. Basophil 0.10 k/uL Normal 0.0-0.2 [facility] Comment on above: Performed By: #### F KLLC, C3, C4, ANAX, PE, IFX, PHEP #### [facility] [address] [place] [address] Activities Specialist: Rohan Mitchell MD #### REJI, BRICE, URI #### [facility] [address] [place] [address] Activities Specialist: William Ayala DO Abs.Neutrophil (Seg) 4.30 k/uL Normal 1.3-9.1 [facility] Comment on above: Performed By: #### F KLLC, C3, C4, ANAX, PE, IFX, PHEP #### [facility] [address] [place] [phone] Activities Specialist: Rohan Mitchell MD #### REJI BMP, URI #### [facility] [address] [place] [address] Activities Specialist: William Ayala DO Basophils/100 WBC (Bld) 1 % Normal 0-2 [facility] Comment on above: Performed By: #### F KLLC, C3, C4, ANAX, PE, IFX, PHEP #### [address] [address] Activities Specialist: Rohan Mitchell MD #### CDP, BMP, URI #### [facility] [address] [place] [address] Activities Specialist: William Ayala DO Eosinophils (Bld) [#/Vol] 0.40 10*3/uL Normal 0.0-0.4 [facility] Comment on above: Performed By: #### F KLLC, C3, C4, ANAX, PE, IFX, PHEP #### [address] [address] Activities Specialist: Rohan Mitchell MD #### REJI, BRICE, URI #### [facility] [address] [place] [address] Activities Specialist: William Ayala DO Eosinophils/100 WBC (Bld) 5 % High 0-4 [facility] Comment on above: Performed By: #### F KLLC, C3, C4, ANAX, PE, IFX, PHEP #### [address] [address] Activities Specialist: Rohan Mitchell MD #### REJI, BRICE, URI #### [facility] [address] [place] [address] Activities Specialist: William Ayala DO Erythrocyte distribution width (RBC) [Ratio] 13.6 % Normal 11.5-14.9 [facility] Comment on above: Performed By: #### F KLLC, C3, C4, ANAX, PE, IFX, PHEP #### [address] [address] Activities Specialist: Rohan Mitchell MD #### CDP, BMP, URI #### [facility] [address] [place] [address] Activities Specialist: William Ayala DO Hematocrit (Bld) [Volume fraction] 42.5 % Normal 41-53 [facility] Comment on above: Performed By: #### F KLLC, C3, C4, ANAX, PE, IFX, PHEP #### [address] [address] Activities Specialist: Rohan Mitchell MD #### BRICE MENDOZA, URI #### [facility] [address] [place] [address] Activities Specialist: William Ayala DO Hemoglobin (Bld) [Mass/Vol] 13.9 g/dL Normal 13.5-17.5 [facility] Comment on above: Performed By: #### F KLLC, C3, C4, ANAX, PE, IFX, PHEP #### [address] [address] Activities Specialist: Rohan Mitchell MD #### REJI, BRICE, URI #### [facility] [address] [place] [address] Activities Specialist: William Ayala DO Lymphocytes (Bld) [#/Vol] 2.60 10*3/uL Normal 1.0-4.8 [facility] Comment on above: Performed By: #### F KLLC, C3, C4, ANAX, PE, IFX, PHEP #### [address] [address] Activities Specialist: Rohan Mitchell MD #### CDP, BMP, URI #### [facility] [place] [address] Activities Specialist: William Ayala DO Lymphocytes/100 WBC (Bld) 32 % Normal 24-44 [facility] Comment on above: Performed By: #### F KLLC, C3, C4, ANAX, PE, IFX, PHEP #### [address] [address] Activities Specialist: Rohan Mitchell MD #### REJI, BRICE, URI #### [facility] [address] [place] [address] Activities Specialist: William Ayala DO MCH (RBC) [Entitic mass] 32.0 pg Normal 26-34 [facility] Comment on above: Performed By: #### F KLLC, C3, C4, ANAX, PE, IFX, PHEP #### [address] [address] Activities Specialist: Rohan Mitchell MD #### REJI, BRICE, URI #### [facility] [address] [place] [address] Activities Specialist: William Ayala DO MCHC (RBC) [Mass/Vol] 32.8 g/dL Normal 31-37 [facility] Comment on above: Performed By: #### F KLLC, C3, C4, ANAX, PE, IFX, PHEP #### [address] [address] Activities Specialist: Rohan Mitchell MD #### REJI, BRICE, URI #### [facility] [address] [place] [address] Activities Specialist: William Ayala DO MCV (RBC) [Entitic vol] 97.5 fL Normal 80-100 [facility] Comment on above: Performed By: #### F KLLC, C3, C4, ANAX, PE, IFX, PHEP #### [address] [address] Activities Specialist: Rohan Mitchell MD #### REJI, BRICE, URI #### [facility] [address] [place] [address] Activities Specialist: William Ayala DO Monocytes (Bld) [#/Vol] 0.70 10*3/uL Normal 0.1-1.3 [facility] Comment on above: Performed By: #### F KLLC, C3, C4, ANAX, PE, IFX, PHEP #### [address] [address] Activities Specialist: Rohan Mitchell MD #### REJI, BRICE, URI #### [facility] [address] [place] [address] Activities Specialist: William Ayala DO Monocytes/100 WBC (Bld) 9 % High 1-7 [facility] Comment on above: Performed By: #### F KLLC, C3, C4, ANAX, PE, IFX, PHEP #### [address] [address] Activities Specialist: Rohan Mitchell MD #### REJI, BMP, URI #### [facility] [address] [place] [address] Activities Specialist: William Ayala DO Neutrophil (Seg) 53 % Normal 36-66 [facility] Comment on above: Performed By: #### F KLLC, C3, C4, ANAX, PE, IFX, PHEP #### [address] [address] Activities Specialist: Rohan Mitchell MD #### CDP, BMP, URI #### [facility] [address] [place] [address] Activities Specialist: William Ayala DO Platelet mean volume (Bld) [Entitic vol] 7.0 fL Normal 6.0-12.0 [facility] Comment on above: Performed By: #### F KLLC, C3, C4, ANAX, PE, IFX, PHEP #### [address] [address] Activities Specialist: Rohan Mitchell MD #### CDP, BMP, URI #### [facility] [place] [address] Activities Specialist: William Ayala DO Platelets (Bld) [#/Vol] 241 10*3/uL Normal 150-450 [facility] Comment on above: Performed By: #### F KLLC, C3, C4, ANAX, PE, IFX, PHEP #### [address] [address] Activities Specialist: Rohan Mitchell MD #### CDP, BMP, URI #### [facility] [address] [place] [address] Activities Specialist: William Ayala DO RBC (Bld) [#/Vol] 4.36 10*6/uL Low 4.5-5.9 [facility] Comment on above: Performed By: #### F KLLC, C3, C4, ANAX, PE, IFX, PHEP #### [address] [address] Activities Specialist: Rohan Mitchell MD #### CDP, BMP, URI #### [facility] [address] [place] [address] Activities Specialist: William Ayala DO WBC (Bld) [#/Vol] 8.0 10*3/uL Normal 3.5-11.0 [facility] Comment on above: Performed By: #### F KLLC, C3, C4, ANAX, PE, IFX, PHEP #### [address] [address] Activities Specialist: Rohan Mitchell MD #### CDP, BMP, URI #### [facility] [place] [address] Activities Specialist: William Ayala DO Abs.Imm.Granulocyte NOT REPORTED Normal 0.00-0.30 [facility] Comment on above: Performed By: #### F KLLC, C3, C4, ANAX, PE, IFX, PHEP #### [address] [address] Activities Specialist: Rohan Mitchell MD #### REJI, BRICE, URI #### [facility] [address] [place] [address] Activities Specialist: William Ayala DO Auto Diff Performed NOT REPORTED Normal [facility] Comment on above: Performed By: #### F KLLC, C3, C4, ANAX, PE, IFX, PHEP #### [address] [address] Activities Specialist: Rohan Mitchell MD #### REJI, BRICE, URI #### [facility] [address] [place] [address] Activities Specialist: William Ayala DO Immature Granulocyte NOT REPORTED Normal 0 [facility] Comment on above: Performed By: #### F KLLC, C3, C4, ANAX, PE, IFX, PHEP #### [address] [address] Activities Specialist: Rohan Mitchell MD #### REJI, BMP, URI #### [facility] [address] [place] [address] Activities Specialist: William Ayala DO NRBC Automated NOT REPORTED Normal [facility] Comment on above: Performed By: #### F KLLC, C3, C4, ANAX, PE, IFX, PHEP #### [address] [address] Activities Specialist: Rohan Mitchell MD #### CDP, BMP, URI #### [facility] [address] [place] [address] Activities Specialist: William Ayala DO Platelet Estimate NOT REPORTED Normal [facility] Comment on above: Performed By: #### F KLLC, C3, C4, ANAX, PE, IFX, PHEP #### [address] [address] Activities Specialist: Rohan Mitchell MD #### REJI, BMP, URI #### [facility] [place] [address] Activities Specialist: William Ayala DO RBC morphology finding Nom (Bld) NOT REPORTED Normal [facility] Comment on above: Performed By: #### F KLLC, C3, C4, ANAX, PE, IFX, PHEP #### [address] [address] Activities Specialist: Rohan Mitchell MD #### REJI, BRICE, URI #### [facility] [place] [address] Activities Specialist: William Ayala DO WBC Morphology NOT REPORTED Normal [facility] Comment on above: Performed By: #### F KLLC, C3, C4, ANAX, PE, IFX, PHEP #### [address] [address] Activities Specialist: Rohan Mitchell MD #### REJI, BMP, URI #### [facility] [place] [address] Activities Specialist: William Ayala DO Chloride, Random UrineOrdere d By: Pratik Miranda on 10-23-2020 Chloride, Ur 147 mmol/L [facility] Work Phone: Comment on above: No normal range esta blished. Chloride,Random Uron 021 Chloride [Moles/Vol] 147 mmol/L Normal [facility] Comment on above: Result Comment: No n ormal range established. Performed By: #### F KLLC, C3, C4, ANAX, PE, IFX, PHEP #### [address] [address] Activities Specialist: Rohan Mitchell MD #### BRICE MENDOZA, URI #### [facility] [address] [place] [address] Activities Specialist: William Ayala, DO [employer] + Lambdaon 2020 [employer] Lt Chains 1.93 mg/dL Normal 0.37-1.94 [facility] Comment on above: Performed By: #### F KLLC, C3, C4, ANAX, PE, IFX, PHEP #### [address] [address] Activities Specialist: Rohan Mitchell MD #### REJI, BRICE, URI #### [facility] [address] [place] [address] Activities Specialist: William Ayala DO [employer]/Lambda Rat 1.35 Normal 0.26-1.65 [facility] Comment on above: Performed By: #### F KLLC, C3, C4, ANAX, PE, IFX, PHEP #### [address] [address] Activities Specialist: Rohan Mitchell MD #### REJI, BRICE, URI #### [facility] [address] [place] [address] Activities Specialist: William Ayala DO [employer] Chains 1.43 mg/dL Normal 0.57-2.63 [facility] Comment on above: Performed By: #### F KLLC, C3, C4, ANAX, PE, IFX, PHEP #### [address] [address] Activities Specialist: Rohan Mitchell MD #### CDP, BMP, URI #### [facility] [address] [place] [address] Activities Specialist: William Ayala DO Hepatitis Acute [facility] 10-23 Hep A Ab,IgM Non-Reactive Normal NR [facility] Comment on above: Performed By: #### F KLLC, C3, C4, ANAX, PE, IFX, PHEP #### [address] [address] Activities Specialist: Rohan Mitchell MD #### CDP, BMP, URI #### [facility] [address] [place] [address] Activities Specialist: William Ayala DO Hep B Core Ab,IgM Non-Reactive Normal [facility] Comment on above: Performed By: #### F KLLC, C3, C4, ANAX, PE, IFX, PHEP #### [address] [address] Activities Specialist: Rohan Mitchell MD #### REJI, BRICE, URI #### [facility] [place] [address] Activities Specialist: William Ayala DO Hep B Surf Ag Non-Reactive Normal NR [facility] Comment on above: Performed By: #### F KLLC, C3, C4, ANAX, PE, IFX, PHEP #### [address] [address] Activities Specialist: Rohan Mitchell MD #### CDP, BMP, URI #### [facility] [address] [place] [address] Activities Specialist: William Ayala DO Hep C Ab Non-Reactive Normal [facility] Comment on above: Result Comment: The hepatitis C procedure used in our laboratory is a Chemiluminescent test specific for three recombinant HCV antigens. A negative anti-HCV result indicates that the antibodies to hepatitis C virus are not present at this time. Individuals with reactive anti-HCV should be considered infected and infectious until proven otherwise. Confirmation of all equivocal or reactive results is recommended by ordering HCV RNA by PCR. Performed By: #### F KLLC, C3, C4, ANAX, PE, IFX, PHEP #### [address] [place] [address] Activities Specialist: Rohan Mitchell MD #### CDP, BMP, URI #### [facility] [address] [place] [address] Activities Specialist: William Ayala DO Hepatitis Panel, AcuteOrdere d By: Pratik Miranda on 10-23-2020 HAV IgM IA Qn (S) Non-Reactive NONREACTIVE [employer] Phone: Hep B Core Ab, IgM Non-Reactive NONREACTIVE [employer] Phone: Hepatitis B Surface Ag Non-Reactive NONREACTIVE [employer] Phone: Hepatitis C Ab Non-Reactive NONREACTIVE [employer] Phone: Comment on above: The hepatitis C procedure used in our laboratory is a Chemiluminescent test specific for three recombinant HCV antigens. A negative anti-HCV result indicates that the antibodies to hepatitis C virus are not present at this time. Individuals with reactive anti-HCV should be considered infected and infectious until proven otherwise. Confirmation of all equivocal or reactive results is recommended by ordering HCV RNA by PCR. [employer] Phone: [employer] Free Lt Chains, Serum QuantOrdered By: Pratik Miranda on 10-23-2020 Free [employer] Ratio 1.35 [employer] Phone: [employer] Free Light Chains QNT 1.93 mg/dL 0.37 - 1.94 mg/dL [employer] Phone: L[employer] Free Light Chains QNT 1.43 mg/dL 0.57 - 2.63 mg/dL [facility] [employer] Phone: [facility] [employer] Phone: No Panel InformationOrdered By: Pratik Miranda on 10-23-2020 [facility] [employer] Phone: [facility] Phone: [facility] [employer] Phone: Prot. Electroph, Blon 2020 Protein [Mass/Vol] 6.6 g/dL Normal 6.4-8.3 [facility] Comment on above: Performed By: #### F KLLC, C3, C4, ANAX, PE, IFX, PHEP #### [address] [id number] Activities Specialist: Rohan Mitchell MD #### REJI, BRICE, URI #### [facility] [address] [place], [place] [id number] Activities Specialist: William Ayala DO Prot. Electroph, Uron 6 Total Protein Conc. 11 mg/dL Normal [facility] Comment on above: Performed By: #### F KLLC, C3, C4, ANAX, PE, IFX, PHEP #### [facility] [employer] [address] [place] [address] [id number] Activities Specialist: Rohan Mitchell MD #### CDP, BMP, URI #### [facility] [address] [place] [address] Activities Specialist: William Ayala DO Type of Specimen .URINE Normal [facility] Comment on above: Performed By: #### F KLLC, C3, C4, ANAX, PE, IFX, PHEP #### [address] [id number] Activities Specialist: Rohan Mitchell MD #### CDP, BMP, URI #### [facility] [address] [place] [address] Activities Specialist: William Ayala DO Protein / creatinine ratio, urineOrdered By: Pratik Miranda on 10-23-2020 Creatinine, Ur 129.7 mg/dL 39.0 - 259.0 mg/dL [facility] [employer] Work Phone: Protein (U) [Mass/Vol] 10 mg/dL [facility] [employer] Work Phone: Comment on above: No normal range esta blished. Urine Total Protein Creatinine Ratio 0.08 [facility] [employer] Phone: [facility] [employer] Phone: Protein,Tot,Def[place] Uron 2020 Creatinine [Mass/Vol] 129.7 mg/dL Normal 39.0-259.0 [facility] Comment on above: Performed By: #### F KLLC, C3, C4, ANAX, PE, IFX, PHEP #### [facility] [employer] [address] [place] [id number] Activities Specialist: Rohan Mitchell MD #### BRICE MENDOZA, URI #### [facility] [address] [place] [address] Activities Specialist: Willaim Ayala DO Tot Prot. Conc. 10 mg/dL Normal [facility] Comment on above: Result Comment: No n ormal range established. Performed By: #### F KLLC, C3, C4, ANAX, PE, IFX, PHEP #### [facility] [employer] [address] [place] [address] Activities Specialist: Rohan Mitchell MD #### BRICE MENDOZA, URI #### [facility] [address] [place] [address] Activities Specialist: William Ayala DO TP/Cre Ratio 0.08 Normal 0.00-0.20 [facility] Comment on above: Performed By: #### F KLLC, C3, C4, ANAX, PE, IFX, PHEP #### [address] [place] [address] Activities Specialist: Rohan Mitchell MD #### CDP, BMP, URI #### [facility] [address] [place] [address] Activities Specialist: William Ayala DO Sodium, Random Uron 10-24-19 Sodium (U) [Moles/Vol] 134 mmol/L Normal [facility] Comment on above: Result Comment: No n ormal range established. Performed By: #### F KLLC, C3, C4, ANAX, PE, IFX, PHEP #### [address] [address] Activities Specialist: Rohan Mitchell MD #### REJI, BMP, URI #### [facility] [address] [place] [address] Activities Specialist: William Ayala DO Sodium, urine, randomOrdered By: Pratik Miranda on 10-23-2020 Sodium (U) [Moles/Vol] 134 mmol/L [facility] Work Phone: Comment on above: No normal range esta blished. Uric Acidon 10-23-2020 Urate [Mass/Vol] 4.7 mg/dL Normal 3.4-7.0 [facility] Comment on above: Performed By: #### F KLLC, C3, C4, ANAX, PE, IFX, PHEP #### [address] [address] Activities Specialist: Rohan Mitchell MD #### CDP, BMP, URI #### [facility] [address] [place] [address] Activities Specialist: William Ayala DO Uric AcidOrdered By: Pratik Miranda on 10-23-2020 Urate [Mass/Vol] 4.7 mg/dL 3.4 - 7.0 mg/dL [facility] Work Phone: Urinalysis w/ Microon 2020 ----- Normal [facility] Comment on above: Performed By: #### F KLLC, C3, C4, ANAX, PE, IFX, PHEP #### [address] [address] Activities Specialist: Rohan Mitchell MD #### BRICE MENDOZA, URI #### [facility] [address] [place] [address] Activities Specialist: William Ayala DO Bacteria FEW Abnormal NONE [facility] Comment on above: Performed By: #### F KLLC, C3, C4, ANAX, PE, IFX, PHEP #### [address] [address] Activities Specialist: Rohan Mitchell MD #### BRICE MENDOZA, URI #### [facility] [place] [address] Activities Specialist: William Ayala DO Epithelial cells LM Ql (Urine sed) 0 TO 2 Normal [facility] Comment on above: Performed By: #### F KLLC, C3, C4, ANAX, PE, IFX, PHEP #### [address] [address] Activities Specialist: Rohan Mitchell MD #### BRICE MENDOZA, URI #### [facility] [place] [address] Activities Specialist: William Ayala DO Urine RBC's 5 TO 10 Normal [facility] Comment on above: Performed By: #### F KLLC, C3, C4, ANAX, PE, IFX, PHEP #### [address] [address] Activities Specialist: Rohan Mitchell MD #### CDP, BMP, URI #### [facility] [address] [place] [address] Activities Specialist: William Ayala DO Urine WBC's 2 TO 5 Normal [facility] Comment on above: Performed By: #### F KLLC, C3, C4, ANAX, PE, IFX, PHEP #### [address] [address] Activities Specialist: Rohan Mitchell MD #### CDP, BMP, URI #### [facility] [address] [place] [address] Activities Specialist: William Ayala DO Bilirubin, SemiQt,Ur Negative Normal NEG [facility] Comment on above: Performed By: #### F KLLC, C3, C4, ANAX, PE, IFX, PHEP #### [address] [address] Activities Specialist: Rohan Mitchell MD #### CDP, BMP, URI #### [facility] [address] [place] [address] Activities Specialist: William Ayala DO Blood, Urine Negative Normal NEG [facility] Comment on above: Performed By: #### F KLLC, C3, C4, ANAX, PE, IFX, PHEP #### [address] [address] Activities Specialist: Rohan Mitchell MD #### CDP, BMP, URI #### [facility] [address] [place] [address] Activities Specialist: William Ayala DO Clarity (U) CLEAR Normal CLEAR [facility] Comment on above: Performed By: #### F KLLC, C3, C4, ANAX, PE, IFX, PHEP #### [address] [address] Activities Specialist: Rohan Mitchell MD #### CDP, BMP, URI #### [facility] [address] [place] [address] Activities Specialist: William Ayala, DO Color (U) YELLOW Normal YEL [facility] Comment on above: Performed By: #### F KLLC, C3, C4, ANAX, PE, IFX, PHEP #### [address] [address] Activities Specialist: Rohan Mitchell MD #### CDP, BMP, URI #### [facility] [address] [place] [address] Activities Specialist: William Ayala DO Glucose Ql (U) 3+ Abnormal NEG [facility] Comment on above: Performed By: #### F KLLC, C3, C4, ANAX, PE, IFX, PHEP #### [address] [address] Activities Specialist: Rohan Mitchell MD #### CDP, BMP, URI #### [facility] [address] [place] [address] Activities Specialist: William Ayala DO Ketones Ql (U) Negative Normal NEG [facility] Comment on above: Performed By: #### F KLLC, C3, C4, ANAX, PE, IFX, PHEP #### [address] [address] Activities Specialist: Rohan Mitchell MD #### CDP, BMP, URI #### [facility] [address] [place] [address] Activities Specialist: William Ayala DO Leukocyte esterase Test strip Ql (U) Negative Normal NEG [facility] Comment on above: Performed By: #### F KLLC, C3, C4, ANAX, PE, IFX, PHEP #### [address] [address] Activities Specialist: Rohan Mitchell MD #### CDP, BMP, URI #### [facility] [place] [address] Activities Specialist: William Ayala DO Nitrite,Ur Negative Normal NEG [facility] Comment on above: Performed By: #### F KLLC, C3, C4, ANAX, PE, IFX, PHEP #### [address] [address] Activities Specialist: Rohan Mitchell MD #### CDP, BMP, URI #### [facility] [address] [place] [address] Activities Specialist: William Ayala DO PH,Ur 6.0 Normal 5.0-8.0 [facility] Comment on above: Performed By: #### F KLLC, C3, C4, ANAX, PE, IFX, PHEP #### [address] [address] Activities Specialist: Rohan Mitchell MD #### CDP, BMP, URI #### [facility] [address] [place] [address] Activities Specialist: William Ayala DO Protein Ql (U) Negative Normal NEG [facility] Comment on above: Performed By: #### F KLLC, C3, C4, ANAX, PE, IFX, PHEP #### [address] [address] Activities Specialist: Rohan Mitchell MD #### CDP, BMP, URI #### [facility] [address] [place] [address] Activities Specialist: William Ayala DO Spec. Purdys,Ur 1.027 Normal 1.000-1.030 [facility] Comment on above: Performed By: #### F KLLC, C3, C4, ANAX, PE, IFX, PHEP #### [address] [address] Activities Specialist: Rohan Mitchell MD #### CDP, BMP, URI #### [facility] [address] [place] [address] Activities Specialist: William Ayala DO Urobilinogen,Ur Normal Normal NORM [facility] Comment on above: Performed By: #### F KLLC, C3, C4, ANAX, PE, IFX, PHEP #### [address] [address] Activities Specialist: Rohan Mitchell MD #### CDP, BMP, URI #### [facility] [address] [place] [address] Activities Specialist: William Ayala DO Amorphous sediment LM Ql (Urine sed) NOT REPORTED Normal NONE [facility] Comment on above: Performed By: #### F KLLC, C3, C4, ANAX, PE, IFX, PHEP #### [address] [address] Activities Specialist: Rohan Mitchell MD #### CDP, BMP, URI #### [facility] [address] [place] [address] Activities Specialist: William Ayala DO Casts NOT REPORTED Normal [facility] Comment on above: Performed By: #### F KLLC, C3, C4, ANAX, PE, IFX, PHEP #### [address] [address] Activities Specialist: Rohan Mitchell MD #### REJI, BRICE, URI #### [facility] [address] [place] [address] Activities Specialist: William Ayala DO Comment NOT REPORTED Normal [facility] Comment on above: Performed By: #### F KLLC, C3, C4, ANAX, PE, IFX, PHEP #### [address] [address] Activities Specialist: Rohan Mitchell MD #### REJI, BRICE, URI #### [facility] [address] [place] [address] Activities Specialist: William Ayala DO Crystals LM Nom (Urine sed) NOT REPORTED Normal NONE [facility] Comment on above: Performed By: #### F KLLC, C3, C4, ANAX, PE, IFX, PHEP #### [address] [address] Activities Specialist: Rohan Mitchell MD #### REJI, BRICE, URI #### [facility] [address] [place] [address] Activities Specialist: William Ayala DO Epithelial, Renal NOT REPORTED Normal 0 [facility] Comment on above: Performed By: #### F KLLC, C3, C4, ANAX, PE, IFX, PHEP #### [address] [address] Activities Specialist: Rohan Mitchell MD #### REJI, BRICE, URI #### [facility] [address] [place] [address] Activities Specialist: William Ayala DO Mucus Strands NOT REPORTED Normal NONE [facility] Comment on above: Performed By: #### F KLLC, C3, C4, ANAX, PE, IFX, PHEP #### [address] [address] Activities Specialist: Rohan Mitchell MD #### REJI, BMP, URI #### [facility] [address] [place] [address] Activities Specialist: William Ayala DO Other Observations NOT REPORTED Normal NREQ [facility] Comment on above: Performed By: #### F KLLC, C3, C4, ANAX, PE, IFX, PHEP #### [address] [address] Activities Specialist: Rohan Mitchell MD #### REJI, BRICE, URI #### [facility] [address] [place] [address] Activities Specialist: William Ayala DO Trichomonas NOT REPORTED Normal NONE [facility] Comment on above: Performed By: #### F KLLC, C3, C4, ANAX, PE, IFX, PHEP #### [address] [address] Activities Specialist: Rohan Mitchell MD #### REJI, BRICE, URI #### [facility] [address] [place] [address] Activities Specialist: William Ayala DO Yeast NOT REPORTED Normal NONE [facility] Comment on above: Performed By: #### F KLLC, C3, C4, ANAX, PE, IFX, PHEP #### [address] [address] Activities Specialist: Rohan Mitchell MD #### REJI, BMP, URI #### [facility] [place] [address] Activities Specialist: William Ayala DO Urinalysis with MicroscopicO rdered By: Pratik Miranda on 10-23-2020 - [employer] Work Phone: Amorphous, UA NOT REPORTED None [employer] Work Phone: Bacteria, UA FEW Abnormal None [employer] Work Phone: Bilirubin Urine Negative NEGATIVE [employer] Work Phone: Casts UA NOT REPORTED /LPF [employer] Work Phone: Color, UA YELLOW YELLOW [employer] Work Phone: Crystals, UA NOT REPORTED None /HPF [employer] Work Phone: Epithelial Cells UA 0 TO 2 /HPF [employer] Work Phone: Glucose, Ur 3+ Abnormal NEGATIVE [employer] Work Phone: Interpretation and review of laboratory results Abnormal [employer] Work Phone: Ketones Ql (U) Negative NEGATIVE [employer] Work Phone: Leukocyte esterase Test strip Ql (U) Negative NEGATIVE [employer] Work Phone: Mucus, UA NOT REPORTED None [employer] Work Phone: Nitrite, Urine Negative NEGATIVE [employer] Work Phone: Other Observations UA NOT REPORTED NOT REQ. [facility] Work Phone: pH, UA 6.0 [employer] Work Phone: Protein, UA Negative NEGATIVE [employer] Work Phone: [phone] RBC, UA 5 TO 10 /HPF [employer] Work Phone: Renal Epithelial, UA NOT REPORTED 0 /HPF [facility] Work Phone: Specific Purdys, UA 1.027 [employer] Work Phone: Trichomonas, UA NOT REPORTED None [employer] Work Phone: Turbidity UA CLEAR CLEAR [employer] Work Phone: Urinalysis Comments NOT REPORTED [facility] [employer] Work Phone: Urine Hgb Negative NEGATIVE [facility] Phone: Urobilinogen, Urine Normal Normal [facility] Phone: WBC, UA 2 TO 5 /HPF [employer] Work Phone: Yeast, UA NOT REPORTED None [facility] Work Phone: [employer] Work Phone: Cult,Urineon 09-26-2020 Cult,Urine Specimen Description .CLEAN CATCH URINE Special Requests NOT REPORTED Culture NO GROWTH Report Status FINAL 09/26/2020 Normal [facility] Comment on above: Performed By: #### U RC #### [facility] [employer] [address] [place] [address] Activities Specialist: Rohan Mitchell MD [facility] [address] [place] [address] Activities Specialist: Scot Ochoa MD Basic Metabolic PanelOrdered By: William Ford on 09-25-2020 Anion gap [Moles/Vol] 10 mmol/L 9 - 17 mmol/L [employer] Phone: Calcium [Mass/Vol] 9.6 mg/dL 8.6 - 10. 4 mg/dL [employer] Phone: Chloride [Moles/Vol] 104 mmol/L 98 - 10 7 mmol/L [employer] Phone: CO2 [Moles/Vol] 26 mmol/L 20 - 31 mmol/L [employer] Phone: Creatinine [Mass/Vol] 1.28 mg/dL High 0.70 - 1.20 mg/dL [employer] Phone: GFR >60 >60 mL/min [employer] Phone: GFR Non- 57 mL/min Low >60 [employer] Phone: Glucose [Mass/Vol] 231 mg/dL High 70 - 99 mg/dL [employer] Phone: Interpretation and review of laboratory results Abnormal [employer] Phone: Potassium [Moles/Vol] 5.0 mmol/L 3.7 - 5.3 mmol/L [employer] Phone: Sodium [Moles/Vol] 140 mmol/L 135 - 144 mmol/L [employer] Phone: Urea nitrogen (BldV) [Mass/Vol] 21 mg/dL 8 - 23 mg/dL [employer] Phone: Urea nitrogen/Creatinine (Bld) [Mass ratio] 16 [facility] Phone: [employer] Phone: Basic Metabolic Profon 09-25 (cont.) Normal [facility] Comment on above: Result Comment: Aver age GFR for 60-69 years old: 85 mL/min/1.73sq m Chronic Kidney Disease: <60 mL/min/1.73sq m Kidney failure: <15 mL/min/1.73sq m eGFR calculated using average adult body mass. Additional eGFR calculator available at: http://www.[employer]/multiple_crcl_2011.htm Performed By: #### B MP #### [facility] [address] [place] [address] Activities Specialist: Scot Ochoa MD Anion gap [Moles/Vol] 10 mmol/L Normal 9-[address] [facility] Comment on above: Performed By: #### B MP #### [facility] [address] [place] [address] Activities Specialist: Scot Ochoa MD BUN/CRE Ratio 16 Normal 9-20 [facility] Comment on above: Performed By: #### B MP #### [facility] [address] [place], [place] [id number] Activities Specialist: Scot Ochoa MD Calcium [Mass/Vol] 9.6 mg/dL Normal 8.6-10.4 [facility] Comment on above: Performed By: #### B MP #### [facility] [address] [place], [place] [phone] Activities Specialist: Scot Ochoa MD Chloride [Moles/Vol] 104 mmol/L Normal 98-107 [facility] Comment on above: Performed By: #### B MP #### [facility] [address] [place], [place] 6[address] Activities Specialist: Scot Ochoa MD CO2 [Moles/Vol] 26 mmol/L Normal 20-31 [facility] Comment on above: Performed By: #### B MP #### [facility] [address] [place], [place] [phone] Activities Specialist: Scot Ochoa MD Creatinine [Mass/Vol] 1.28 mg/dL High 0.70-1.[address] [facility] Comment on above: Performed By: #### B MP #### [facility] [address] [place], [place] [id number] Activities Specialist: Scot Ochoa MD GFR, Amer >60 Normal >60 [facility] Comment on above: Performed By: #### B MP #### [facility] [address] [place], [place] [id number] Activities Specialist: Scot Ochoa MD GFR,non Amer 57 mL/min Low >60 [facility] Comment on above: Performed By: #### B MP #### [facility] [address] [place], [place] [id number] Activities Specialist: Scot Ochoa MD Glucose [Mass/Vol] 231 mg/dL High 70-99 [facility] Comment on above: Performed By: #### B MP #### [facility] [address] [place], [place] [id number] Activities Specialist: Scot Ochoa MD Potassium [Moles/Vol] 5.0 mmol/L Normal 3.7-5.[address] [facility] Comment on above: Performed By: #### B MP #### [facility] [address] [place] [address] [address] [place], [place] [phone] Activities Specialist: Scot Ochoa MD Sodium [Moles/Vol] 140 mmol/L Normal 135-144 [facility] Comment on above: Performed By: #### B MP #### [address] [place], [place] [id number] Activities Specialist: Scot Ochoa MD Staging: Normal [facility] Comment on above: Result Comment: Stag e 1: Some kidney damage normal GFR Stage 2: Mild kidney damage GFR 60-89 Stage 3: Moderate kidney damage GFR 30-59 Stage 4: Severe kidney damage GFR 15-29 Stage 5: Severe kidney damage GFR <15 ESRD - chronic treatment by dialysis or transplant Performed By: #### B MP #### [address] [place], [place] [id number] Activities Specialist: Scot Ochoa MD Urea nitrogen [Mass/Vol] 21 mg/dL Normal 8-23 [facility] Comment on above: Performed By: #### B MP #### [facility] [address] [place] [address] [address] [place], [place] [phone] Activities Specialist: Scot Ochoa MD Laboratory - Chemistry and C hemistry - challengeOrdered By: William Ford on 09-25-2020 GFR/1.73 sq M.predicted MDRD (S/P/Bld) [Vol rate/Area] [facility] Work Phone: Comment on above: Average GFR for 60-6 9 years old: 85 mL/min/1.73sq m Chronic Kidney Disease: <60 mL/min/1.73sq m Kidney failure: <15 mL/min/1.73sq m eGFR calculated using average adult body mass. Additional eGFR calculator available at: http://www.[employer]/multiple_crcl_2012.htm Stage 1: Some kidney damage normal GFR Stage 2: Mild kidney damage GFR 60-89 Stage 3: Moderate kidney damage GFR 30-59 Stage 4: Severe kidney damage GFR 15-29 Stage 5: Severe kidney damage GFR <15 ESRD - chronic treatment by dialysis or transplant Urinalysis w/ Microon 2020 ----- Normal [facility] Comment on above: Performed By: #### U AMIC #### [facility] [address] [place] [address] Activities Specialist: Scot Ochoa MD Bilirubin, SemiQt,Ur Negative Normal NEG [facility] Comment on above: Performed By: #### U AMIC #### [facility] [address] [place] [address] Activities Specialist: Scot Ochoa MD Blood, Urine TRACE Abnormal NEG [facility] Comment on above: Performed By: #### U AMIC #### [facility] [address] [place] [address] [place] [address] Activities Specialist: Scot Ochoa MD Clarity (U) CLEAR Normal CLEAR [facility] Comment on above: Performed By: #### U AMIC #### [facility] [address] [place] [address] Activities Specialist: Scot Ochoa MD Color (U) YELLOW Normal YEL [facility] Comment on above: Performed By: #### U AMIC #### [facility] [address] [place] [address] Activities Specialist: Scot Ochoa MD Epithelial cells LM Ql (Urine sed) 0 TO 2 Normal 0-5 [facility] Comment on above: Performed By: #### U AMIC #### [facility] [address] [place] [address] Activities Specialist: Scot Ochoa MD Glucose Ql (U) 3+ Abnormal NEG [facility] Comment on above: Performed By: #### U AMIC #### [facility] [address] [place], [place] [id number] Activities Specialist: Scot Ochoa MD Ketones Ql (U) Negative Normal NEG [facility] Comment on above: Performed By: #### U AMIC #### [facility] [address] [place], [place] [id number] Activities Specialist: Scot Ochoa MD Leukocyte esterase Test strip Ql (U) Negative Normal NEG [facility] Comment on above: Performed By: #### U AMIC #### [facility] [address] [place] [address] [place] [address] Activities Specialist: Scot Ochoa MD Nitrite,Ur Negative Normal [facility] [facility] Comment on above: Performed By: #### U AMIC #### [facility] [address] [place] [address] [place] [address] Activities Specialist: Scot Ochoa MD PH,Ur 6.0 Normal 5.0-9.0 [facility] Comment on above: Performed By: #### U AMIC #### [facility] [address] [place] [address] [place] [address] Activities Specialist: Scot Ochoa MD Protein Ql (U) Negative Normal [facility] Comment on above: Performed By: #### U AMIC #### [facility] [address] [place] [address] [place] [place], [place] [id number] Activities Specialist: Scot Ochoa MD Spec. Purdys,Ur 1.025 High 1.010-1.020 [facility] Comment on above: Performed By: #### U AMIC #### [facility] [address] [place], [place] [phone] Activities Specialist: Scot Ochoa MD Urine RBC's None Normal 0-2 [facility] Comment on above: Performed By: #### U AMIC #### [facility] [address] [place], [place] [id number] Activities Specialist: Scot Ochoa MD Urine WBC's None Normal 0-5 [facility] Comment on above: Performed By: #### U AMIC #### [facility] [address] [place], [place] [id number] Activities Specialist: Scot Ochoa MD Urobilinogen,Ur Normal Normal NORM [facility] Comment on above: Performed By: #### U AMIC #### [facility] [address] [place], [place] 8273383 Activities Specialist: Scot Ochoa MD Amorphous sediment LM Ql (Urine sed) NOT REPORTED Normal [facility] Comment on above: Performed By: #### U AMIC #### [facility] [address] [place], [place] 9054583 Activities Specialist: Scot Ochoa MD Bacteria NOT REPORTED Normal [facility] Comment on above: Performed By: #### U AMIC #### [facility] [address] [place], [place] [id number] Activities Specialist: Scot Ochoa MD Casts NOT REPORTED Normal [facility] Comment on above: Performed By: #### U AMIC #### [facility] [address] [place], [place] [phone] Activities Specialist: Scot Ochoa MD Comment NOT REPORTED Normal [facility] Comment on above: Performed By: #### U AMIC #### [facility] [address] [place], [place] [id number] Activities Specialist: Scot Ochoa MD Crystals LM Nom (Urine sed) NOT REPORTED Normal [facility] Comment on above: Performed By: #### U AMIC #### [facility] [address] [place], [place] [phone] Activities Specialist: Scot Ochoa MD Epithelial, Renal NOT REPORTED Normal 0 [facility] Comment on above: Performed By: #### U AMIC #### [facility] [address] [place], [place] [id number] Activities Specialist: Scot Ochoa MD Mucus Strands NOT REPORTED Normal [facility] Comment on above: Performed By: #### U AMIC #### [facility] [address] [place], [place] 1758483 Activities Specialist: Scot Ochoa MD Other Observations NOT REPORTED Normal [facility] Comment on above: Performed By: #### U AMIC #### [facility] [address] [place] [address] Activities Specialist: Scot Ochoa MD Trichomonas NOT REPORTED Normal [facility] Comment on above: Performed By: #### U AMIC #### [facility] [address] [place] [address] Activities Specialist: Scot Ochoa MD Yeast NOT REPORTED Normal [facility] Comment on above: Performed By: #### U AMIC #### [facility] [address] [place] [address] Activities Specialist: Scot Ochoa MD Urinalysis with MicroscopicO rdered By: William Ford on 09-25-2020 - [facility] [employer] Phone: Amorphous, UA NOT REPORTED None [facility] [employer] Phone: Bacteria, UA NOT REPORTED None [facility] [employer] Phone: Bilirubin Urine Negative NEGATIVE [facility] [employer] Phone: Casts UA NOT REPORTED /LPF [facility] [employer] Work Phone: Color, UA YELLOW YELLOW [facility] Work Phone: [phone] Crystals, UA NOT REPORTED None /HPF [facility] Work Phone: Epithelial Cells UA 0 TO 2 [facility] Work Phone: Glucose, Ur 3+ Abnormal NEGATIVE [facility] Work Phone: Interpretation and review of laboratory results Abnormal [employer] Work Phone: Ketones Ql (U) Negative NEGATIVE [facility] Work Phone: Leukocyte esterase Test strip Ql (U) Negative NEGATIVE [employer] Work Phone: Mucus, UA NOT REPORTED None [employer] Work Phone: Nitrite, Urine Negative NEGATIVE [facility] Work Phone: Other Observations UA NOT REPORTED NOT REQ. [facility] Work Phone: pH, UA 6.0 [facility] Work Phone: Protein, UA Negative NEGATIVE [employer] Work Phone: RBC, UA None [facility] Work Phone: Renal Epithelial, UA NOT REPORTED 0 /HPF [facility] [employer] Work Phone: Specific Purdys, UA 1.025 [employer] Work Phone: Trichomonas, UA NOT REPORTED None [facility] Work Phone: Turbidity UA CLEAR CLEAR [facility] Work Phone: Urinalysis Comments NOT REPORTED [employer] Work Phone: Urine Hgb TRACE Abnormal NEGATIVE [facility] Work Phone: Urobilinogen, Urine Normal Normal [facility] Work Phone: WBC, UA None [facility] Work Phone: [phone] Yeast, UA NOT REPORTED None [employer] Phone: [employer] Phone: XR ABDOMEN (KUB) (SINGLE AP VIEW)on 09-25-2020 XR ABDOMEN (KUB) (SINGLE AP VIEW) EXAMINATION: ONE SUPINE XRAY VIEW(S) OF THE ABDOMEN 09/25/2020 2:15 pm COMPARISON: None. HISTORY: ORDERING SYSTEM PROVIDED HISTORY: Renal calculus FINDINGS: Moderate amount of retained stool in the colon. Unremarkable bowel gas pattern. No evidence for obstruction. No extra skeletal calcifications are identified. IMPRESSION: Moderate amount of retained stool in the colon. No extra skeletal calcifications are identified. Interpreted by: Jamie Quispe MD Signed by: Jamie Quispe MD 09/25/20 Final result Normal [facility] XR ABDOMEN (KUB) (SINGLE AP VIEW)Ordered By: William Ford on 09-25-2020 Moderate amount of retained stool in the colon. No extra skeletal calcifications are identified. [employer] Phone: EXAMINATION: ONE SUP INE XRAY VIEW(S) OF THE ABDOMEN 09/25/2020 2:15 pm COMPARISON: None. HISTORY: ORDERING SYSTEM PROVIDED HISTORY: Renal calculus FINDINGS: Moderate amount of retained stool in the colon. Unremarkable bowel gas pattern. No evidence for obstruction. No extra skeletal calcifications are identified. [employer] Phone: Ayden, pn Incoming Radiant Results From [facility] - 09/25/2020 4:08 PM EDT EXAMINATION: ONE SUPINE XRAY VIEW(S) OF THE ABDOMEN 09/25/2020 2:15 pm COMPARISON: None. HISTORY: ORDERING SYSTEM PROVIDED HISTORY: Renal calculus FINDINGS: Moderate amount of retained stool in the colon. Unremarkable bowel gas pattern. No evidence for obstruction. No extra skeletal calcifications are identified. IMPRESSION: Moderate amount of retained stool in the colon. No extra skeletal calcifications are identified. [employer] Phone: [employer] Phone: Cult,Urineon 2019 Cult,Urine Specimen Description .VOIDED URINE Special Requests NOT REPORTED Culture NO GROWTH Report Status FINAL 12/06/2019 [facility] Comment on above: Performed By: #### U #### [facility] [address] [place] [address] Activities Specialist: Rohan Mitchell MD [facility] [address] [place] [address] Activities Specialist: Hector Jarrett MD Basic Metabolic Panelon 11-07 Anion gap [Moles/Vol] 10 mmol/L 9 - 17 mmol/L [place] Bun/Cre Ratio 13 [place] Calcium [Mass/Vol] 10.1 mg/dL 8.6 - 10. 4 mg/dL [place] Chloride [Moles/Vol] 98 mmol/L 98 - 10 7 mmol/L [place] CO2 [Moles/Vol] 28 mmol/L 20 - 31 mmol/L [place] Creatinine [Mass/Vol] 1.39 mg/dL High 0.7 - 1.2 mg/dL [place] GFR >60 >60 mL/min [place] GFR Non- 52 mL/min Low >60 [place] Glucose [Mass/Vol] 245 mg/dL High 70 - 99 mg/dL [place] Interpretation and review of laboratory results Abnormal [place] Potassium [Moles/Vol] 4.9 mmol/L 3.7 - 5.3 mmol/L [place] Sodium [Moles/Vol] 136 mmol/L 135 - 144 mmol/L [place] Urea nitrogen [Mass/Vol] 18 mg/dL 6 - 20 mg/dL [place] Basic Metabolic Profon 12-04 (cont.) [facility] Comment on above: Result Comment: Aver age GFR for 50-59 years old: 93 mL/min/1.73sq m Chronic Kidney Disease: <60 mL/min/1.73sq m Kidney failure: <15 mL/min/1.73sq m eGFR calculated using average adult body mass. Additional eGFR calculator available at: http://www.[employer]/multiple_crcl_2012.htm Performed By: #### B MP, CDP #### [facility] [address] [place], [place] [phone] Activities Specialist: Hector Jarrett MD Anion gap [Moles/Vol] 10 mmol/L Normal 9-[address] [facility] Comment on above: Performed By: #### B MP, CDP #### [facility] [address] [place] [address] Activities Specialist: Hector Jarrett MD BUN/CRE Ratio 13 Normal 9-20 [facility] Comment on above: Performed By: #### B MP, CDP #### [facility] [address] [place] [address] Activities Specialist: Hector Jarrett MD Calcium [Mass/Vol] 10.1 mg/dL Normal 8.6-10.4 [facility] Comment on above: Performed By: #### B MP, CDP #### [facility] [address] [place] [address] Activities Specialist: Hector Jarrett MD Chloride [Moles/Vol] 98 mmol/L Normal 98-107 [facility] Comment on above: Performed By: #### B MP, CDP #### [facility] [address] [place] [address] Activities Specialist: Hector Jarrett MD CO2 [Moles/Vol] 28 mmol/L Normal 20-31 [facility] Comment on above: Performed By: #### B MP, CDP #### [facility] [address] [place] [address] Activities Specialist: Hector Jrarett MD Creatinine [Mass/Vol] 1.39 mg/dL High 0.70-1.[address] [facility] Comment on above: Performed By: #### B MP, CDP #### [facility] [address] [place], [place] [address]83 Activities Specialist: Hector Jarrett MD GFR, Amer >60 Normal >60 [facility] Comment on above: Performed By: #### B MP, CDP #### [facility] [address] [place] [phone] Activities Specialist: Hector Jarrett MD GFR,non Amer 52 mL/min Low >60 [facility] Comment on above: Performed By: #### B MP, CDP #### [facility] [address] [place] [address]83 Activities Specialist: Hector Jarrett MD Glucose [Mass/Vol] 245 mg/dL High 70-99 [facility] Comment on above: Performed By: #### B MP, CDP #### [facility] [address] [place], [place] [id number] Activities Specialist: Hector Jarrett MD Potassium [Moles/Vol] 4.9 mmol/L Normal 3.7-5.[address] [facility] Comment on above: Performed By: #### B MP, CDP #### [facility] [address] [place], [place] [address]19083 Activities Specialist: Hector Jarrett MD Sodium [Moles/Vol] 136 mmol/L Normal 135-144 [facility] Comment on above: Performed By: #### B MP, CDP #### [facility] [address] [place], [place] 8079483 Activities Specialist: Hector Jarrett MD Staging: Normal [facility] Comment on above: Result Comment: Stag e 1: Some kidney damage normal GFR Stage 2: Mild kidney damage GFR 60-89 Stage 3: Moderate kidney damage GFR 30-59 Stage 4: Severe kidney damage GFR 15-29 Stage 5: Severe kidney damage GFR <15 ESRD - chronic treatment by dialysis or transplant Performed By: #### B MP, CDP #### [facility] [address] [place], [place] [address]83 Activities Specialist: Hector Jarrett MD Urea nitrogen [Mass/Vol] 18 mg/dL Normal 6-20 [facility] Comment on above: Performed By: #### B MP, CDP #### [facility] [address] [place] [address] Activities Specialist: Hector Jarrett MD CBC Auto Differentialon 11-07 Basophils (Bld) [#/Vol] 0.06 10*3/uL [place] Basophils/100 WBC (Bld) 1 % 0 - 2 % [place] Differential Type NOT REPORTED [place] Eosinophils (Bld) [#/Vol] 0.33 10*3/uL [place] Eosinophils/100 WBC (Bld) 3 % 1 - 4 % [place] Erythrocyte distribution width (RBC) [Ratio] 13.0 % 11.8 - 14.4 % [place] Hematocrit (Bld) [Volume fraction] 40.7 % 40.7 - 50.3 % [place] Hemoglobin (Bld) [Mass/Vol] 13.7 g/dL 13 - 17 g/dL [place] Immature granulocytes (Bld) [#/Vol] 0.05 10*3/uL [place] Immature granulocytes (Bld) [#/Vol] 1 % High 0 [place] Interpretation and review of laboratory results Abnormal [place] Lymphocytes (Bld) [#/Vol] 3.53 10*3/uL [place] Lymphocytes/100 WBC (Bld) 36 % 24 - 43 % [place] MCH (RBC) [Entitic mass] 32.9 pg 25.2 - 33.5 pg [place] MCHC (RBC) [Mass/Vol] 33.7 g/dL 28.4 - 34.8 g/dL [place] MCV (RBC) [Entitic vol] 97.8 fL 82.6 - 102.9 fL [place] Monocytes (Bld) [#/Vol] 0.78 10*3/uL [place] Monocytes/100 WBC (Bld) 8 % 3 - 12 % [place] Platelet mean volume (Bld) [Entitic vol] 8.6 fL 8.1 - 13.5 fL [place] Platelets (Bld) [#/Vol] NOT REPORTED [place] Platelets (Bld) [#/Vol] 239 10*3/uL [place] RBC (Bld) [#/Vol] 4.16 10*6/uL Low 4.21 - 5.7 7 m/uL [place] RBC morphology finding Nom (Bld) NOT REPORTED [place] Segmented neutrophils/100 WBC (Bld) 51 % 36 - 65 % [place] Segs Absolute 5.18 [place] WBC (Bld) [#/Vol] 9.9 10*3/uL [place] WBC (Bld) [#/Vol] 0.0 10*3/uL 0.0 per 10 0 WBC [place] WBC Morphology NOT REPORTED [place] CBC with Diffon 12-05-2019 Abs. Basophil 0.06 k/uL Normal 0.00-0.20 [facility] Comment on above: Performed By: #### B YOMI, CDP #### [facility] [address] [place] [address] [place] [address] Activities Specialist: Hector Jarrett MD Abs.Imm.Granulocyte 0.05 k/uL Normal 0.00-0.30 [facility] Comment on above: Performed By: #### B YOMI, CDP #### [facility] [address] [place] [id number] Activities Specialist: Hector Jarrett MD Abs.Neutrophil (Seg) 5.18 k/uL Normal 1.50-8.10 [facility] Comment on above: Performed By: #### B YOMI, CDP #### [address] [place] [address] Activities Specialist: Hector Jarrett MD Basophils/100 WBC (Bld) 1 % Normal 0-2 [facility] Comment on above: Performed By: #### B MP, CDP #### [facility] [address] [place], [place] 2801783 Activities Specialist: Hector Jarrett MD Eosinophils (Bld) [#/Vol] 0.33 10*3/uL Normal 0.00-0.44 [facility] Comment on above: Performed By: #### B MP, CDP #### [facility] [address] [place], [place] [address]897983 Activities Specialist: Hector Jarrett MD Eosinophils/100 WBC (Bld) 3 % Normal 1-4 [facility] Comment on above: Performed By: #### B MP, CDP #### [facility] [address] [place], [place] 6[address]83 Activities Specialist: Hector Jarrett MD Erythrocyte distribution width (RBC) [Ratio] 13.0 % Normal 11.8-14.4 [facility] Comment on above: Performed By: #### B MP, CDP #### [address] [place], [place] 5184583 Activities Specialist: Hector Jarrett MD Hematocrit (Bld) [Volume fraction] 40.7 % Normal 40.7-50.3 [facility] Comment on above: Performed By: #### B MP, CDP #### [address] [place], [facility]83 Activities Specialist: Hector Jarrett MD Hemoglobin (Bld) [Mass/Vol] 13.7 g/dL Normal 13.0-17.0 [facility] Comment on above: Performed By: #### B MP, CDP #### [facility] [address] [place] [address] Activities Specialist: Hector Jarrett MD Immature granulocytes/100 WBC (Bld) 1 % High 0 [facility] Comment on above: Performed By: #### B MP, CDP #### [facility] [address] [place], [facility]83 Activities Specialist: Hector Jarrett MD Lymphocytes (Bld) [#/Vol] 3.53 10*3/uL Normal 1.10-3.70 [facility] Comment on above: Performed By: #### B MP, CDP #### [facility] [address] [place], [place] [address]202483 Activities Specialist: Hector Jarrett MD Lymphocytes/100 WBC (Bld) 36 % Normal 24-43 [facility] Comment on above: Performed By: #### B MP, CDP #### [facility] [address] [place], [place] 4069883 Activities Specialist: Hector Jarrett MD MCH (RBC) [Entitic mass] 32.9 pg Normal 25.2-33.5 [facility] Comment on above: Performed By: #### B YOMI, CDP #### [facility] [address] [place], [facility]83 Activities Specialist: Hector Jarrett MD MCHC (RBC) [Mass/Vol] 33.7 g/dL Normal 28.4-34.[address] [facility] Comment on above: Performed By: #### B MP, CDP #### [address] [place], [place] [id number] Activities Specialist: Hector Jarrett MD MCV (RBC) [Entitic vol] 97.8 fL Normal 82.6-102.9 [facility] Comment on above: Performed By: #### B MP, CDP #### [facility] [address] [place], [place] 4687583 Activities Specialist: Hector Jarrett MD Monocytes (Bld) [#/Vol] 0.78 10*3/uL Normal 0.10-1.20 [facility] Comment on above: Performed By: #### B MP, CDP #### [facility] [address] [place], [place] [address]871583 Activities Specialist: Hector Jarrett MD Monocytes/100 WBC (Bld) 8 % Normal 3-12 [facility] Comment on above: Performed By: #### B MP, CDP #### [facility] [address] [place], [place] 5457383 Activities Specialist: Hector Jarrett MD Neutrophil (Seg) 51 % Normal 36-65 [facility] Comment on above: Performed By: #### B MP, CDP #### [facility] [address] [place], [place] [address]40[address]83 Activities Specialist: Hector Jarrett MD NRBC Automated 0.0 per 100 WBC Normal 0.0 [facility] Comment on above: Performed By: #### B YOMI, CDP #### [facility] [address] [place], [place] 4204983 Activities Specialist: Hector Jarrett MD Platelet mean volume (Bld) [Entitic vol] 8.6 fL Normal 8.1-13.5 [facility] Comment on above: Performed By: #### B MP, CDP #### [facility] [address] [place] [address] Activities Specialist: Hector Jarrett MD Platelets (Bld) [#/Vol] 239 10*3/uL Normal 138-453 [facility] Comment on above: Performed By: #### B MP, CDP #### [facility] [address] [place] [address] Activities Specialist: Hector Jarrett MD RBC (Bld) [#/Vol] 4.16 10*6/uL Low 4.21-5.77 [facility] Comment on above: Performed By: #### B MP, CDP #### [facility] [address] [place], [place] [address]66[address] ([address] Activities Specialist: Hector Jarrett MD WBC (Bld) [#/Vol] 9.9 10*3/uL Normal 3.5-11.3 [facility] Comment on above: Performed By: #### B MP, CDP #### [facility] [address] [place] [address] Activities Specialist: Hector Jarrett MD Auto Diff Performed NOT REPORTED Normal [facility] Comment on above: Performed By: #### B MP, CDP #### [facility] [address] [place] [address] Activities Specialist: Hector Jarrett MD Platelet Estimate NOT REPORTED Normal [facility] Comment on above: Performed By: #### B MP, CDP #### [facility] [address] [place] [address] Activities Specialist: Hector Jarrett MD RBC morphology finding Nom (Bld) NOT REPORTED Normal [facility] Comment on above: Performed By: #### B MP, CDP #### [facility] [address] [place] [address] Activities Specialist: Hector Jarrett MD WBC Morphology NOT REPORTED Normal [facility] Comment on above: Performed By: #### B MP, CDP #### [facility] [address] [place], [place] 28[address]83 Activities Specialist: Hector Jarrett MD CT ABDOMEN PELVIS WO CONTRAS Ton 12-05-2019 CT ABDOMEN PELVIS WO CONTRAST EXAMINATION: CT OF THE ABDOMEN AND PELVIS WITHOUT CONTRAST 12/05/2019 2:17 pm TECHNIQUE: CT of the abdomen and pelvis was performed without the administration of intravenous contrast. Multiplanar reformatted images are provided for review. Dose modulation, iterative reconstruction, and/or weight based adjustment of the mA/kV was utilized to reduce the radiation dose to as low as reasonably achievable. COMPARISON: Abdominal/pelvic CT, 01/28/2018 HISTORY: ORDERING SYSTEM PROVIDED HISTORY: Renal colic TECHNOLOGIST PROVIDED HISTORY: Acute symptoms, initial evaluation. FINDINGS: Lower Chest: The visualized lung bases are clear. The visualized cardiac and posterior mediastinal structures are unremarkable. Organs: Within the abdomen, the unenhanced liver, gallbladder, spleen, pancreas and adrenal glands are within normal limits. There are nonobstructing bilateral kidney stones. 3 stones are identified on the left. The largest is at the upper pole measuring 5 mm in diameter. The 2 smaller stones in the mid and lower left kidney each measure 1-2 mm in diameter. On the right side, nonobstructing punctate 1 mm upper and lower pole kidney stones are present. No evidence of hydronephrosis, hydroureter or ureterolithiasis on either side. Dominant lower pole left kidney cyst measures 3.8 cm in diameter. GI/Bowel: The unopacified small bowel is grossly unremarkable. No free fluid or free air is identified. The appendix is seen adjacent to the cecum and appears normal. Retroperitoneum/Peritoneu m: No obvious lymphadenopathy is seen although evaluation is limited by the lack of IV contrast. The abdominal aorta appears normal in caliber. Pelvis: Within the pelvis, the urinary bladder is grossly unremarkable. No gross abnormality of the prostate or seminal vesicles is identified. Bones/Soft Tissues: No acute osseous abnormalities are identified. IMPRESSION: 1. No acute intra-abdominal or intrapelvic process. Specifically, no evidence of obstructive uropathy on the current study. 2. There are multiple nonobstructing bilateral kidney stones as above. 3. Dominant lower pole left renal cyst is unchanged. 4. Normal appendix. Interpreted by: Merrick Dejesus MD Signed by: Merrick Dejesus MD 12/05/19 Final result Normal [facility] CT ABDOMEN PELVIS WO CONTRAS T Additional Contrast? Noneon 12-05-2019 1. No acute intra-abdominal or intrapelvic process. Specifically, no evidence of obstructive uropathy on the current study. 2. There are multiple nonobstructing bilateral kidney stones as above. 3. Dominant lower pole left renal cyst is unchanged. 4. Normal appendix. [facility], [place] EXAMINATION: CT OF [facility] ABDOMEN AND PELVIS WITHOUT CONTRAST 12/05/2019 2:17 pm TECHNIQUE: CT of the abdomen and pelvis was performed without the administration of intravenous contrast. Multiplanar reformatted images are provided for review. Dose modulation, iterative reconstruction, and/or weight based adjustment of the mA/kV was utilized to reduce the radiation dose to as low as reasonably achievable. COMPARISON: Abdominal/pelvic CT, 01/28/2018 HISTORY: ORDERING SYSTEM PROVIDED HISTORY: Renal colic TECHNOLOGIST PROVIDED HISTORY: Acute symptoms, initial evaluation. FINDINGS: Lower Chest: The visualized lung bases are clear. The visualized cardiac and posterior mediastinal structures are unremarkable. Organs: Within the abdomen, the unenhanced liver, gallbladder, spleen, pancreas and adrenal glands are within normal limits. There are nonobstructing bilateral kidney stones. 3 stones are identified on the left. The largest is at the upper pole measuring 5 mm in diameter. The 2 smaller stones in the mid and lower left kidney each measure 1-2 mm in diameter. On the right side, nonobstructing punctate 1 mm upper and lower pole kidney stones are present. No evidence of hydronephrosis, hydroureter or ureterolithiasis on either side. Dominant lower pole left kidney cyst measures 3.8 cm in diameter. GI/Bowel: The unopacified small bowel is grossly unremarkable. No free fluid or free air is identified. The appendix is seen adjacent to the cecum and appears normal. Retroperitoneum/Peritoneu m: No obvious lymphadenopathy is seen although evaluation is limited by the lack of IV contrast. The abdominal aorta appears normal in caliber. Pelvis: Within the pelvis, the urinary bladder is grossly unremarkable. No gross abnormality of the prostate or seminal vesicles is identified. Bones/Soft Tissues: No acute osseous abnormalities are identified. [facility] [place], [place], pn Incoming Radiant Results From [facility]/Vaprema - 12/05/2019 3:03 PM EDT EXAMINATION: CT OF THE ABDOMEN AND PELVIS WITHOUT CONTRAST 12/05/2019 2:17 pm TECHNIQUE: CT of the abdomen and pelvis was performed without the administration of intravenous contrast. Multiplanar reformatted images are provided for review. Dose modulation, iterative reconstruction, and/or weight based adjustment of the mA/kV was utilized to reduce the radiation dose to as low as reasonably achievable. COMPARISON: Abdominal/pelvic CT, 01/28/2018 HISTORY: ORDERING SYSTEM PROVIDED HISTORY: Renal colic TECHNOLOGIST PROVIDED HISTORY: Acute symptoms, initial evaluation. FINDINGS: Lower Chest: The visualized lung bases are clear. The visualized cardiac and posterior mediastinal structures are unremarkable. Organs: Within the abdomen, the unenhanced liver, gallbladder, spleen, pancreas and adrenal glands are within normal limits. There are nonobstructing bilateral kidney stones. 3 stones are identified on the left. The largest is at the upper pole measuring 5 mm in diameter. The 2 smaller stones in the mid and lower left kidney each measure 1-2 mm in diameter. On the right side, nonobstructing punctate 1 mm upper and lower pole kidney stones are present. No evidence of hydronephrosis, hydroureter or ureterolithiasis on either side. Dominant lower pole left kidney cyst measures 3.8 cm in diameter. GI/Bowel: The unopacified small bowel is grossly unremarkable. No free fluid or free air is identified. The appendix is seen adjacent to the cecum and appears normal. Retroperitoneum/Peritoneu m: No obvious lymphadenopathy is seen although evaluation is limited by the lack of IV contrast. The abdominal aorta appears normal in caliber. Pelvis: Within the pelvis, the urinary bladder is grossly unremarkable. No gross abnormality of the prostate or seminal vesicles is identified. Bones/Soft Tissues: No acute osseous abnormalities are identified. IMPRESSION: 1. No acute intra-abdominal or intrapelvic process. Specifically, no evidence of obstructive uropathy on the current study. 2. There are multiple nonobstructing bilateral kidney stones as above. 3. Dominant lower pole left renal cyst is unchanged. 4. Normal appendix. [place] Metabolic Panelon 12-05-2019 GFR/1.73 sq M predicted among non-blacks MDRD (S/P/Bld) [Vol rate/Area] [place] Comment on above: Average GFR for 50-5 9 years old: 93 mL/min/1.73sq m Chronic Kidney Disease: <60 mL/min/1.73sq m Kidney failure: <15 mL/min/1.73sq m eGFR calculated using average adult body mass. Additional eGFR calculator available at: http://www.[employer]/multiple_crcl_2012.htm Stage 1: Some kidney damage normal GFR Stage 2: Mild kidney damage GFR 60-89 Stage 3: Moderate kidney damage GFR 30-59 Stage 4: Severe kidney damage GFR 15-29 Stage 5: Severe kidney damage GFR <15 ESRD - chronic treatment by dialysis or transplant Urinalysis w/ Microon 2019 ----- Normal [facility] Comment on above: Performed By: #### U AMIC #### [facility] [address] [place] [address] Activities Specialist: Hector Jarrett MD Acetoacetic Acid,Ur Negative Normal NEG [facility] Comment on above: Performed By: #### U AMIC #### [facility] [address] [place], [place] [id number] Activities Specialist: Hector Jarrett MD Bacteria TRACE Abnormal [facility] Comment on above: Performed By: #### U AMIC #### [facility] [address] [place], [place] [id number] Activities Specialist: Hector Jarrett MD Bilirubin, SemiQt,Ur Negative Normal [facility] Comment on above: Performed By: #### U AMIC #### [facility] [address] [place], [place] [id number] Activities Specialist: Hector Jarrett MD Color (U) YELLOW Normal YEL [facility] Comment on above: Performed By: #### U AMIC #### [facility] [address] [place], [place] [id number] Activities Specialist: Hector Jarrett MD Epithelial cells LM Ql (Urine sed) None Normal 0-5 [facility] Comment on above: Performed By: #### U AMIC #### [facility] [address] [place], [place] [id number] Activities Specialist: Hector Jarrett MD Glucose Ql (U) 3+ Abnormal NEG [facility] Comment on above: Performed By: #### U AMIC #### [facility] [address] [place], [place] [id number] Activities Specialist: Hector Jarrett MD Hemoglobin, Ur Negative Normal [facility] Comment on above: Performed By: #### U AMIC #### [facility] [address] [place], [place] [id number] Activities Specialist: Hector Jarrett MD Leukocyte esterase Test strip Ql (U) Negative Normal [facility] Comment on above: Performed By: #### U AMIC #### [facility] [address] [place] [address] Activities Specialist: Hector Jarrett MD Nitrite,Ur Negative Normal [facility] Comment on above: Performed By: #### U AMIC #### [facility] [address] [place], [place] [address] Activities Specialist: Hector Jarrett MD PH,Ur 6.0 Normal 5.0-9.0 [facility] Comment on above: Performed By: #### U AMIC #### [facility] [address] [place], [facility] Activities Specialist: Hector Jarrett MD Protein Ql (U) Negative Normal NEG [facility] Comment on above: Performed By: #### U AMIC #### [facility] [address] [place] [id number] Activities Specialist: Hector Jarrett MD Spec. Purdys,Ur 1.020 Normal 1.010-1.020 [facility] Comment on above: Performed By: #### U AMIC #### [facility] [address] [place], [facility] Activities Specialist: Hector Jarrett MD Turbidity CLEAR Normal CLEAR [facility] Comment on above: Performed By: #### U AMIC #### [facility] [address] [place] [id number] Activities Specialist: Hector Jarrett MD Urine RBC's 0 TO 2 Normal 0-2 [facility] Comment on above: Performed By: #### U AMIC #### [facility] [address] [place], [place] [address] Activities Specialist: Hector Jarrett MD Urine WBC's 0 TO 2 Normal 0-5 [facility] Comment on above: Performed By: #### U AMIC #### [facility] [address] [place] [address] Activities Specialist: Hector Jarrett MD Urobilinogen,Ur Normal Normal NORM [facility] Comment on above: Performed By: #### U AMIC #### [facility] [address] [place], [place] [id number] Activities Specialist: Hector Jarrett MD Amorphous sediment LM Ql (Urine sed) NOT REPORTED Normal [facility] Comment on above: Performed By: #### U AMIC #### [facility] [address] [place], [place] [id number] Activities Specialist: Hector Jarrett MD Casts NOT REPORTED Normal [facility] Comment on above: Performed By: #### U AMIC #### [facility] [address] [place], [place] [id number] Activities Specialist: Hector Jarrett MD Comment NOT REPORTED Normal [facility] Comment on above: Performed By: #### U AMIC #### [facility] [address] [place], [place] [id number] Activities Specialist: Hector Jarrett MD Crystals LM Nom (Urine sed) NOT REPORTED Normal [facility] Comment on above: Performed By: #### U AMIC #### [facility] [address] [place], [place] [id number] Activities Specialist: Hector Jarrett MD Epithelial, Renal NOT REPORTED Normal 0 [facility] Comment on above: Performed By: #### U AMIC #### [facility] [address] [place], [place] [id number] Activities Specialist: Hector Jarrett MD Mucus Strands NOT REPORTED Normal [facility] Comment on above: Performed By: #### U AMIC #### [facility] [address] [place], [place] [id number] Activities Specialist: Hector Jarrett MD Other Observations NOT REPORTED [facility] Comment on above: Performed By: #### U AMIC #### [facility] [address] [place] [address] Activities Specialist: Hector Jarrett MD Trichomonas NOT REPORTED Normal [facility] Comment on above: Performed By: #### U AMIC #### [facility] [address] [place] [address] Activities Specialist: Hector Jarrett MD Yeast NOT REPORTED Normal NONE [facility] Comment on above: Performed By: #### U AMIC #### [facility] [address] [place] [address] Activities Specialist: Hector Jarrett MD Urinalysis with Microscopico n 12-05-2019 Amorphous, UA NOT REPORTED None [place] Bacteria, UA TRACE Abnormal None [place] Bilirubin Urine Negative NEGATIVE [place] Casts UA NOT REPORTED /LPF [place] Color, UA YELLOW YELLOW [place] Crystals, UA NOT REPORTED None /HPF [place] Epithelial Cells UA None [place] Glucose, Ur 3+ Abnormal NEGATIVE [place] Interpretation and review of laboratory results Abnormal [place] Ketones Ql (U) Negative NEGATIVE [place] Leukocyte esterase Test strip Ql (U) Negative NEGATIVE [place] Mucus, UA NOT REPORTED None [place] Nitrite, Urine Negative NEGATIVE [place] Other Observations UA NOT REPORTED NOT REQ. M [place] pH, UA 6.0 [place] Protein (U) [Mass/Vol] Negative NEGATIVE [place] RBC (U) [#/Vol] 0 TO 2 [place] Renal Epithelial, UA NOT REPORTED 0 /HPF [place] Specific Purdys, UA 1.020 [place] Trichomonas, UA NOT REPORTED None [place] Turbidity UA CLEAR CLEAR [place] Urinalysis Comments NOT REPORTED [place] Urine Hgb Negative NEGATIVE [place] Urobilinogen, Urine Normal Normal [place] WBC, UA 0 TO 2 [place] Yeast, UA NOT REPORTED [place] CARDIAC STRESS/REST INJE CTIONon 07-19-2019 [facility] CARDIAC STRESS/REST INJECTION Patient Name: ROXANE BONNER STUDY: MYOCARDIAL PERFUSION STRESS TEST WITH EXERCISE [facility], [address], [address], [place] [address] [facility] Provider: GARRETT KAISER PCP: Dr. Kimani CRAWLEY Supervising provider: PALAK WRAY INDICATION: ABN FUNCTION STUDY,ASCVD W/O ANGINA HISTORY: Gender: M; Age: 58 y/o ; Height: 162.56 cm; Weight: 91.0872465 kg. DM HTN High Cholesterol; Family HX CAD; Currently smoking. PTCA on 2011. COMPARISON: Previous nuclear testing completed [id number] at . ACCESSION NUMBER(S): [id number]; [id number]; [id number] ORDERING CLINICIAN: BRIDGET PAIGE TECHNIQUE: ONE DAY protocol. Stress injection: Date:07/19/2019, 35.1 mCi of Myoview IV at peak exercise. Rest injection: Date: 07/19/2019, 11.8 mCi of Myoview IV at rest. Imaging was performed by tomographic technique. STRESS TEST DATA: Resting heart rate was 73 BPM. Resting blood pressure was 122/90 mmHg. The patient exercised using a Cole exercise protocol. 8 minutes exercised. 91 % of MPHR achieved for age. 10.1 METS achieved. Maximum heart rate was 148 BPM. Maximum blood pressure was 132/80 mmHg. DTS 7. TEST TERMINATED DUE TO: DYSPNEA,LEG PAIN FINDINGS: STRESS TEST RESULTS: Resting electrocardiogram revealed normal sinus rhythm. The patient had no significant ECG changes with maximal stress. The patient did not have chest pains/symptoms during the procedure. There was a normal recovery phase. There were no significant dysrhythmias. IMAGING RESULTS: Image quality was good. Rest and stress tomographic images were reviewed and revealed normal perfusion without evidence of ischemia, myocardial infarction, or left ventricular dilatation with stress. Overall left ventricular systolic function appeared to be normal without regional wall motion abnormalities. LV ejection fraction was 64 %. TID is 1.1 and is normal. There was no evidence of attenuation artifact. IMPRESSION: Normal exercise Myoview cardiac perfusion stress test. No evidence of ischemia or myocardial infarction by perfusion imaging. Normal left ventricular systolic function, ejection fraction 64%. No exercise provoked significant ischemic ECG changes or chest pain symptoms. No previous studies are available for comparison. Electronically signed by: MILDRED WRAY MD Normal [facility] Cult,Urine,CCon 01-30-2018 Cult,Urine,CC Specimen Description .CLEAN CATCH URINE Special Requests NOT REPORTED Culture NO GROWTH Report Status FINAL 01/29/2018 Normal [facility] Comment on above: Performed By: #### C ELIANE ####[facility] [id number] [place] [id number] Basic Metabolic Profon 01-28 (cont.) Normal [facility] Comment on above: Result Comment: Aver age GFR for 50-59 years old: 93 mL/min/1.73sq mChronic Kidney Disease: <60 mL/min/1.73sq mKidney failure: <15 mL/min/1.73sq meGFR calculated using average adult body mass. Additional eGFR calculator available at:http://www.[employer]/multiple_crcl_2012.htm Anion gap 3 molar conc 15 mmol/L Normal 9-17 [facility] Calcium mass conc 9.4 mg/dL Normal 8.6-10.[address] [facility] Chloride molar conc 102 mmol/L Normal 98-107 [facility] CO2 molar conc 23 mmol/L Normal 20-31 [facility] Creatinine mass conc 0.89 mg/dL Normal 0.70-1.20 [facility] GFR, Amer >60 Normal >60 [facility] GFR,non Amer >60 Normal >60 [facility] Glucose mass conc 160 mg/dL High 70-[address] [facility] Potassium molar conc 3.9 mmol/L Normal 3.7-5.3 [facility] Sodium molar conc 140 mmol/L Normal 135-[address] [facility] Urea nitrogen mass conc 15 mg/dL Normal 6-20 [facility] BUN/CRE Ratio NOT REPORTED Normal 9-20 [facility] Staging: NOT REPORTED Normal [facility] CBC with Diffon 01-28-2018 Abs. Basophil 0.10 k/uL Normal 0.0-0.2 [facility] Abs.Neutrophil (Seg) 5.70 k/uL Normal 1.8-7.7 [facility] Basophils/100 WBC Auto (Bld) 1 % Normal 0-2 [facility] Eosinophils Auto #/vol (Bld) 0.50 10*3/uL High 0.0-0.4 [facility] Eosinophils/100 WBC Auto (Bld) 5 % High 1-4 [facility] Erythrocyte distribution width Auto Ratio (RBC) 13.5 % Normal 12.5-15.4 [facility] Hematocrit Auto Volume Fraction (Bld) 39.6 % Low 41-53 [facility] Hemoglobin mass conc (Bld) 13.5 g/dL Normal 13.5-17.5 [facility] Lymphocytes Auto #/vol (Bld) 4.20 10*3/uL Normal 1.0-4.8 [facility] Lymphocytes/100 WBC Auto (Bld) 36 % Normal 24-44 [facility] MCH Auto Entitic mass (RBC) 33.1 pg Normal 26-34 [facility] MCHC Auto mass conc (RBC) 34.2 g/dL Normal 31-37 [facility] MCV Auto Entitic volume (RBC) 96.9 fL Normal 80-100 [facility] Monocytes Auto #/vol (Bld) 1.00 10*3/uL Normal 0.1-1.2 [facility] Monocytes/100 WBC Auto (Bld) 9 % Normal 2-11 [facility] Neutrophil (Seg) 49 % Normal 36-66 [facility] Platelet mean volume Auto Entitic volume (Bld) 7.4 fL Normal 6.0-12.0 [facility] Platelets Auto #/vol (Bld) 256 10*3/uL Normal 140-450 [facility] RBC Auto #/vol (Bld) 4.08 10*6/uL Low 4.5-5.9 [facility] WBC Auto #/vol (Bld) 11.5 10*3/uL High 3.5-11.0 [facility] Abs.Imm.Granulocyte NOT REPORTED Normal 0.00-0.30 [facility] Auto Diff Performed NOT REPORTED Normal [facility] Immature granulocytes #/vol (Bld) NOT REPORTED Normal 0 [facility] NRBC Automated NOT REPORTED Normal [facility] Platelets Auto #/vol (Bld) NOT REPORTED Normal [facility] RBC morphology finding Nom (Bld) NOT REPORTED Normal [facility] WBC Morphology NOT REPORTED Normal [facility] CT ABDOMEN PELVIS WO CONTRAS Ton 01-28-2018 CT ABDOMEN PELVIS WO CONTRAST ADDENDUM:Please note that there is a typographical error within the original report.The 1.0 x 1.5 x 1.1 cm obstructing calculus is located within theURETEROPELVIC junction.Electronically Signed by: BRENDAN LAWRENCE on Sat Jan 28, 2018 7:50:56 PM EDTEXAMINATION:CT OF THE ABDOMEN AND PELVIS WITHOUT CONTRAST 01/28/2018 6:23 pmTECHNIQUE:CT of the abdomen and pelvis was performed without the administration ofintravenous contrast. Multiplanar reformatted images are provided for review.Dose modulation, iterative reconstruction, and/or weight based adjustment ofthe mA/kV was utilized to reduce the radiation dose to as low as reasonablyachievable.COMP ARISON:None.HISTORY:ORDER ING SYSTEM PROVIDED HISTORY: hx stones, left abd painTECHNOLOGIST PROVIDED HISTORY:Ordering Physician Provided Reason for Exam: left side abdominal painsAcuity: AcuteType of Exam: InitialRelevant Medical/Surgical History: HX kidney stonesFINDINGS:Lower Chest: Minimal dependent bibasilar atelectasis/scarring. No definitepulmonary nodules or masses. Base of the heart is normal in size withoutpericardial fluid collection.Organs: The liver, gallbladder, pancreas, and spleen are grossly withinnormal limits. No evidence for intrahepatic or extrahepatic biliary ductaldilatation.GI/Bowel : There is no evidence for bowel obstruction or inflammation. Nofree intraperitoneal air or fluid. Small bowel loops are normal in caliber.No evidence for hiatal hernia. Appendix is unremarkable.Pelvis: No evidence for free fluid.Peritoneum/Retroper itoneum: Adrenal glands are normal in size andconfiguration. The kidneys are normal in size. Multiple punctate left-sidedintrarenal calculi. Additionally, there is an obstructing calculus at theleft ureterovesicular junction measuring 1.0 x 1.5 x 1.1 cm. Left interpolarrenal cyst. Distally, the ureters are unobstructed urinary bladder isunremarkable. Questionable punctate calculus within the interpolar region ofthe right kidney..Vasculature: The aorta is normal in caliber. Dense atheroscleroticcalcificat ions of the aorta. No definite lymphadenopathy identified.Bones/Soft Tissues: No evidence for acute fracture or dislocation. No lyticor blastic lesions.IMPRESSION: 1.0 x 1.5 x 1.1 cm obstructing calculus at the left ureterovesicularjunction. Multiple additional punctate calculi within the left kidney.Questionable single punctate calculus within the right kidney. Noobstruction or hydronephrosis.Interprete d by:ELIZABETH Dykesigned by:Brendan Lawrence MD01/28/18Edited Result - FINAL Normal [facility] Lipaseon 01-28-2018 Lipase enzyme act/vol 25 U/L Normal 13-60 [facility] Liver Profileon 01-28-2018 Albumin mass conc 4.3 g/dL Normal 3.5-5.[address] [facility] Albumin/Globulin mass ratio 1.7 {ratio} Normal 1.0-2.5 [facility] Alkaline Phos 65 U/L Normal 40-129 [facility] ALT enzyme act/vol 24 U/L Normal 5-41 [facility] AST enzyme act/vol 21 U/L Normal <40 [facility] Bilirubin Ql (U) 0.45 mg/dL Normal 0.3-1.2 [facility] Bilirubin, Indirect 0.30 mg/dL Normal 0.00-1.00 [facility] Bilirubin.direct mass conc 0.15 mg/dL Normal <0.31 [facility] Protein mass conc 6.9 g/dL Normal 6.4-8.[address] [facility] Globulin Calculated mass conc (S) NOT REPORTED Normal 1.5-3.8 [facility] UA w/Reflex Cultureon 2017 Acetoacetic Acid,Ur TRACE Abnormal NEG [facility] Bilirubin, SemiQt,Ur Negative Normal NEG [facility] Color YELLOW Normal YEL [facility] Glucose,Semi-qnt,Ur Negative Normal NEG [facility] Hemoglobin, Ur LARGE Abnormal NEG [facility] Leuckocyte Esterase SMALL Abnormal NEG [facility] Nitrite,Ur Negative Normal NEG [facility] PH,Ur 6.5 Normal 5.0-8.0 [facility] Protein, Semi-qnt,Ur 1+ Abnormal NEG [facility] Spec. Purdys,Ur 1.025 Normal 1.005-1.[address] [facility] Turbidity SLIGHTLY CLOUDY Abnormal CLEAR [facility] Urobilinogen,Ur Normal Normal NORM [facility] Comment NOT REPORTED Normal [facility] Urinalysis,Microon 8 ----- Normal [facility] Epithelial cells 0 TO 2 Normal 0-5 [facility] Other Observations Culture ordered base d on defined criteria. Abnormal NREQ [facility] RBC Test strip #/vol (U) 5 TO 10 Normal 0-2 [facility] Urine WBC's 10 TO 20 Normal 0-5 [facility] Amorphous Sediment NOT REPORTED Normal NONE [facility] Bacteria NOT REPORTED Normal NONE [facility] Casts NOT REPORTED Normal [facility] Crystals NOT REPORTED Normal NONE [facility] Epithelial, Renal NOT REPORTED Normal 0 [facility] Mucus Strands NOT REPORTED Normal NONE [facility] Trichomonas NOT REPORTED Normal NONE [facility] Yeast NOT REPORTED Normal NONE [facility] Vital Signs Date Time Vital Sign Value Performing Clinician Faci lity 06-07-2023 14:31-0500 Body height 167.6 cm Jacinto Hayward DO Work Phone: [facility] 06-07-2023 14:31-0500 Body mass index (BMI) [Ratio] 33.41 kg/m2 Jacinto Hayward DO Work Phone: [facility] 06-07-2023 14:31-0500 Body weight 93.89 kg Jacinto Hayward DO Work Phone: [facility] 06-07-2023 14:31-0500 Diastolic blood pressure 56 mm[Hg] Jacinto Hayward DO Work Phone: [facility] 06-07-2023 14:31-0500 Heart rate 72 /min Jacinto Hayward DO Work Phone: [facility] 06-07-2023 14:31-0500 Systolic blood pressure 84 mm[Hg] Jacinto Hayward DO Work Phone: [facility] 09-29-2022 13:05-0400 Body height 167.64 cm [facility] Work Phone: [facility] 250 DO Work Phone: 09-29-2022 13:05-0400 Body mass index (BMI) [Ratio] 33.41 kg/m2 [facility] Work Phone: [facility] 250 DO Work Phone: 09-29-2022 13:05-0400 Body surface area Derived from formula 2.03 m2 [facility] Work Phone: [facility] 250 DO Work Phone: 09-29-2022 13:05-0400 Body weight 93.9 kg [facility] Work Phone: [facility] 250 DO Work Phone: 09-29-2022 13:05-0400 Diastolic blood pressure 72 mm[Hg] [facility] P [facility] Work Phone: [facility] 250 DO Work Phone: 09-29-2022 13:05-0400 Heart rate 72 /min [facility] Work Phone: [facility] 250 DO Work Phone: 09-29-2022 13:05-0400 Systolic blood pressure 98 mm[Hg] [facility] Work Phone: [facility] 250 DO Work Phone: 08-18-2022 09:45-0400 Body height 167.64 cm [facility] Work Phone: [facility] 250 DO Work Phone: 08-18-2022 09:45-0400 Body mass index (BMI) [Ratio] 33.41 kg/m2 [facility] Work Phone: [facility] 250 DO Work Phone: 08-18-2022 09:45-0400 Body surface area Derived from formula 2.03 m2 [facility] Work Phone: [facility] 250 DO Work Phone: 08-18-2022 09:45-0400 Body weight 93.9 kg [facility] Work Phone: [facility] 250 DO Work Phone: 08-18-2022 09:45-0400 Diastolic blood pressure 88 mm[Hg] Roosevelt P House Work Phone: [facility] 250 DO Work Phone: 08-18-2022 09:45-0400 Heart rate 72 /min Roosevelt P House Work Phone: [facility] 250 DO Work Phone: 08-18-2022 09:45-0400 Systolic blood pressure 128 mm[Hg] Roosevelt P House Work Phone: [facility] 250 DO Work Phone: 09-07-2021 13:58-0400 Diastolic blood pressure 96 mm[Hg] DO Roosevelt House Work Phone: [facility] 09-07-2021 13:58-0400 Heart rate 74 /min DO Roosevelt House Work Phone: [facility] 09-07-2021 13:58-0400 Systolic blood pressure 135 mm[Hg] DO Roosevelt House Work Phone: [facility] 08-18-2021 09:40-0400 Body height 165.1 cm Roosevelt P House Work Phone: [facility] 250 DO Work Phone: 08-18-2021 09:40-0400 Body mass index (BMI) [Ratio] 35.64 kg/m2 Roosevelt P House Work Phone: [facility] 250 DO Work Phone: 08-18-2021 09:40-0400 Body surface area Derived from formula 2.04 m2 Roosevelt P House Work Phone: [facility] 250 DO Work Phone: 08-18-2021 09:40-0400 Body weight 97.16 kg Roosevelt P House Work Phone: [facility] 250 DO Work Phone: 08-18-2021 09:40-0400 Diastolic blood pressure 70 mm[Hg] Roosevelt P House Work Phone: [facility] 250 DO Work Phone: 08-18-2021 09:40-0400 Heart rate 64 /min Roosevelt P House Work Phone: [facility] 250 DO Work Phone: 08-18-2021 09:40-0400 Systolic blood pressure 110 mm[Hg] Roosevelt Crawley [facility] Work Phone: Encounters Encounter Date Encounter Type Care Provider Facility Start: 10-05-2023 End: 10-05-2023 ambulatory SHAIKH WAYNE Not Available Start: 07-04-2023 End: 07-04-2023 ambulatory SHAIKH WAYNE Not Available Start: 06-07-2023 End: 06-07-2023 Office outpatient visit 25 minutes Jacinto Hedon DO Work Phone: [facility] Comment on above: 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; Shortness of breath; Anxiety; Obesity (BMI 30-39.9); Type 2 diabetes mellitus without complication, with long-term current use of insulin ([facility]); Current every day smoker Start: 06-07-2023 End: 06-07-2023 ambulatory [facility] Start: 05-30-2023 End: 05-30-2023 ambulatory SHAIKH TAMILESLEY Not Available Start: 12-14-2022 End: 12-15-2022 ambulatory ROOSEVELT CRAWLEY Facility:[facility] Start: 09-29-2022 Office outpatient vi sit 15 minutes [facility] Work Phone: Start: 08-27-[address] Roosevelt Crawley Facility:[id number] Start: 08-27-2022 End: 08-27-2022 ambulatory Tree Hayward Facility:[facility] Start: 08-25-2022 End: 08-25-2022 ambulatory Tree Hayward Facility:[facility] Start: 08-25-2022 End: 08-25-2022 ambulatory DO Roosevelt Crawley Work Phone: [facility] Work Phone: Start: 08-25-2022 End: 08-25-2022 Patient encounter procedure DO Roosevelt Crawley Work Phone: [facility] Work Phone: Start: 08-18-2022 Office outpatient vi sit 25 minutes Roosevelt Crawley Work Phone: [facility] 250 DO Work Phone: Start: 08-18-[address] Roosevelt Crawley Facility: Start: 04-19-2022 End: 04-20-[address] ROOSEVELT CRAWLEY Facility:[facility]1 Start: 09-17-2021 Chart Update Roosevelt P Hous e Work Phone: [facility] 250 DO Work Phone: Start: 09-07-2021 End: 09-07-2021 ambulatory Bridget Paige Facility:[facility] Start: 09-07-2021 End: 09-07-2021 Patient encounter procedure DO Roosevelt Crawley Work Phone: [facility]Electro[facility]osti [facility] Start: 08-18-2021 Office outpatient vi sit 25 minutes Roosevelt Crawley Work Phone: [facility] 250 DO Work Phone: Start: 07-30-2021 End: 07-31-[address] ROOSEVELT CRAWLEY Facility:[facility]1 Start: 02-17-2021 Message Roosevelt P Hous e Work Phone: [facility] 250 DO Work Phone: Start: 10-28-2020 End: 10-31-2020 ambulatory SR ROOSEVELT Garcia [facility] Start: 10-28-2020 End: 10-30-2020 Subsequent hospital visit by physician [facility] Ultrasound Room [facility] Ultrasound Comment on above: Stage 3a chronic kid china disease (HCC) Start: 10-23-2020 End: 10-24-2020 ambulatory SR ROOSEVELT P [facility] Start: 10-23-2020 End: 10-23-2020 Subsequent hospital visit by physician Sr Crawley DO Work Phone: [facility] Comment on above: Stage 3a chronic kid china disease (HCC); Nephrolithiasis Start: 09-25-2020 End: 09-26-2020 [facility] Start: 09-25-2020 End: 09-25-2020 Subsequent hospital visit by physician Sr Denisa PINK Work Phone: [facility] Start: 09-25-2020 End: 09-28-2020 [facility] Start: 09-25-2020 End: 09-27-2020 Subsequent hospital visit by physician Roberto Xr Dr Room 2 [facility] Comment on above: Renal calculus; PAULA (acute kidney injury) ([facility]); Dysuria Renal calculus Start: 12-05-2019 End: 12-08-2019 [facility] Start: 12-05-2019 End: 2019 Subsequent hospital visit by physician Roberto Lab Drawing Room [facility] Comment on above: Renal colic Start: 04-04-2018 Patient encounter procedure BRIDGET PAIGE Facility:[id number] Start: 01-28-2018 End: 01-28-2018 Emergency department patient visit JINNY LOPEZ [facility] Procedures Date Procedure Procedure Detail Performing Clinician Start: 04-19-[address] GAGE CRAWLEY Comment on above: Performed By: #### P SAD #### [facility] [address] [place] [address] Dr. Amarjit Sanchez Start: 10-28-2020 Us retroperitoneal r eal time w/image complete Pratik Miranda MD Work Phone: Start: 10-23-2020 Urnls dip stick/tabl et reagent auto microscopy Pratik Miranda MD Work Phone: Start: 10-23-2020 End: 10-23-2020 Basic metabolic panel calcium total Pratik Miranda MD Work Phone: Start: 10-23-2020 Complement antigen e ach component Pratik Miranda MD Work Phone: Start: 09-25-2020 Urnls dip stick/tabl et reagent auto microscopy William W [facility] [employer] SAL[employer]ERSON Work Phone: Start: 09-25-2020 Radiologic exam abdo men 1 view William Ford [employer]ERSON Work Phone: Start: 09-25-2020 Basic metabolic pane l calcium total William Ford [employer] - [employer]ESPERSON Work Phone: Start: 12-05-2019 Culture bacterial quanttative colony count urine WILLIAM FORD Start: 12-05-2019 Urnls dip stick/tabl et reagent auto microscopy William Ford Work Phone: Start: 12-05-2019 Ct abdomen & pelvis w/o contrast material WILLIAM FORD Start: 12-05-2019 Blood count complete auto&auto difrntl wbc WILLIAM FORD Start: 12-05-2019 Ct abdomen & pelvis w/o contrast material William Ford Work Phone: Start: 12-05-2019 Basic metabolic pane l calcium total William Ford Work Phone: Start: 12-05-2019 Blood count complete auto&auto difrntl wbc William Ford Work Phone: Start: 01-28-2018 AMB EXTERNAL REFERRA L TO UROLOGY JINNY LOPEZ Start: 01-28-2018 Microscopic urinalysis JINNY LOPEZ Start: 01-28-2018 URINE CULTURE CLEAN CATCH JINNY LOPEZ Start: 01-28-2018 URINE RT REFLEX TO CULTURE JINNY LOPEZ Start: 01-28-2018 Ct abdomen & pelvis w/o contrast material JINNY LOPEZ Start: 01-28-2018 Assay of lipase JINNY LOPEZ Start: 01-28-2018 Basic metabolic pane l calcium total JINNY LOPEZ Start: 01-28-2018 Blood count complete auto&auto difrntl wbc JINNY LOPEZ Start: 01-28-2018 Hepatic function panel JINNY LOPEZ Start: 01-28-2018 INSERT PERIPHERAL IV DA NALLELY LOPEZ Cardiac catheterization Selam Garcia [employer] Work Phone: Nasal sinus procedure Gage Crawley Work Phone: Operative procedure on hand Rosoevelt P House Work Phone: Percutaneous translu luna coronary angioplasty Roosevelt Garcia [facility] Work Phone: Renal lithotripsy Roosevelt Garcia [facility] Work Phone: Surgical procedure Roosevelt Garcia House Work Phone: Comment on above: stent indications; Total colonoscopy Roosevelt Garcia [employer] Work Phone: Plan of Treatment Date Care Activity Detail Author Start: 06-12-2024 End: 06-12-2024 Patient encounter procedure 06/12/2024 2:30 PM EST Office Visit [facility] [address] [place] [address] Jacinto Hayward DO [address] [place] [address] [facility] Start: 03-30-2023 FUV, Provider: Jacinto Hayward, Status: Pen, Time: 10:20 AM FUV, Provider: Jacinto Hayward, Status: Pen, Time: 10:20 AM [facility] DO Work Phone: Start: 01-07-2023 COVID-19 Vaccine ( season) COVID-19 Vaccine ( season) [facility] Start: 09-29-2022 FUV, Provider: Glenda Gao, Status: Pen, Time: 9:30 AM FUV, Provider: Glenda Gao, Status: Pen, Time: 9:30 AM [facility] DO Work Phone: Start: 08-27-2022 SURGNONUH, Provider: Jacinto Hayward, Status: Pen, [facility]: [facility]:00 [facility]: Jacinto [facility]ward, Status: Pen, Time: 10:00 AM [facility] DO Work Phone: Start: 08-17-2022 FUV, Provider: Bridget Paige, Status: Pen, Time: 10:00 AM FUV, Provider: Bridget Paige, Status: Pen, Time: 10:00 AM [facility] 250 DO Work Phone: Start: 10-23-2021 Creatinine measurement Creatinine mo [facility] [employer] Phone: Start: 10-23-2021 Potassium monitoring Potassium monit Antengo [employer] Phone: Start: 09-25-2021 Creatinine measurement Creatinine mo [employer]Adyuka Phone: Start: 09-25-2021 Potassium monitoring Potassium monit Antengo [employer] Phone: Start: 09-23-2021 End: 09-23-2021 Patient encounter procedure 09/23/2021 Office Visit Urology Ludwig Arango MD [address], [address] [place] [address] [facility] Cell Therapy [facility] Start: 09-07-2021 Radionuclide myocard ial perfusion stress study NM laura perf SPECT rest & str [facility] Start: 08-21-2021 FUV, Provider: Bridget Paige, Status: Pen, Time: 9:00 AM FUV, Provider: Bridget Paige, Status: Pen, Time: 9:00 AM [facility] 250 DO Work Phone: Start: 01-07-2021 Influenza vaccination Flu vacc ine (Season Ended) [facility] Phone: Start: 12-04-2020 Creatinine measurement Creatinine mo nitbruno [employer], [place] Start: 12-04-2020 Potassium monitoring Potassium monit [employer] [place], [place] Start: 11-20-2020 End: 11-20-2020 Patient encounter procedure 11/20/2020 Office Visit Nephrology Pratik Miranda MD [address] [place] [address] [phone] [facility] Start: 10-10-2020 End: 06-04-2021 Patient encounter procedure 10/10/2020 Office Visit Nephrology Pratik Miranda MD [address] [place] [address] [phone] [facility] Start: 06-09-2020 End: 06-09-2020 Office Visit 06/09/2020 Office Visit Urology Ludwig Arango MD [address], [address] [place] [address] [facility] Start: 01-08-2020 Influenza vaccination Flu vaccine (# 1) [place] Start: 01-28-2019 Creatinine measurement Creatinine mo nitoring [place] Start: 01-28-2019 Potassium monitoring Potassium monit oring [place] Start: 12-06-2014 Screening for malign ant neoplasm of lung Low dose CT lung screening [place], [place] Start: 12-06-2009 Screening for malign ant neoplasm of colon Colon cancer screen colonoscopy [place] Start: 12-06-2009 Shingles Vaccine (1 of 2) De La Cruz gles Vaccine (1 of 2) [place] Start: 12-06-2009 Zoster Vaccines (1 of 2) Zoster Vacc regla (1 of 2) [facility] Start: 1999 Diabetes screen Diabetes screen [place], [place] Start: 12-06-1981 DTaP/Tdap/Td Vaccine s (1 - Tdap) DTaP/Tdap/Td Vaccines (1 - Tdap) [facility] Start: 12-06-1978 DTaP/Tdap/Td vaccine (1 - Tdap) DTaP/Tdap/Td vaccine (1 - Tdap) [place] Start: 12-06-1978 Urine screening for protein Diabetes: Urine Protein Screening [facility] Start: 12-06-1977 Hepatitis C screening Hepatitis C Sc reening [facility] Start: 12-06-1974 HIV screening HIV screen [place], [place] Start: 12-06-1969 Diabetic foot examination Diabetes: Foot Exam [facility] Start: 12-06-1969 Glaucoma screening Diabetes: R etinopathy Screening [facility] Start: 12-06-1969 Lipid panel Lipid screen [place], [place] Start: 12-06-1965 Pneumococcal 0-64 ye ars Vaccine (1 of 1 - PPSV23) Pneumococcal 0-64 years Vaccine (1 of 1 - PPSV23) [place] Start: 12-06-1965 Pneumococcal 0-64 ye ars Vaccine (1 of 2 - PPSV23) Pneumococcal 0-64 years Vaccine (1 of 2 - PPSV23) [facility] [employer] Phone: Start: 12-06-1965 Pneumococcal Vaccine : Pediatrics (0 to 5 Years) and At-Risk Patients (6 to 64 Years) (1 - PCV) Pneumococcal Vaccine: Pediatrics (0 to 5 Years) and At-Risk Patients (6 to 64 Years) (1 - PCV) [facility] Start: 12-06-1960 MMR Vaccines (1 of 1 - Standard series) MMR Vaccines (1 of 1 - Standard series) [facility] Start: 1959 Hemoglobin A1c measurement Diabetes: Hemoglobin A1C [facility] Start: 1959 Hepatitis C screening Hepatitis C sc reen [place] Start: 1959 HIV screening HIV Screening [facility] Start: 1959 Lipid panel Lipid Panel [facility] Start: 1959 Screening for malign ant neoplasm of colon [facility] Start: 1959 Yearly Adult Physical Yearly Adult P hysical [facility] End: 10-23-2020 DEVONTE Screen with Reflex DEVONTE Screen with Reflex Lab Routine Stage 3a chronic kidney disease (HCC) 1 Occurrences starting 10/23/2020 until 10/23/2020 [facility] Phone: Comment on above: 1 Occurrences starti ng 10/23/2020 until 10/23/2020 DEVONTE Screen with Reflex DEVONTE Scree n with Reflex Lab Routine Stage 3a chronic kidney disease (HCC) 10/23/2020 8:04 AM EDT [facility] [employer] Phone: End: 12-05-2019 Culture, Urine Culture, Urine Microbiology Routine Renal colic 1 Occurrences starting 12/05/2019 until 12/05/2019 [place] Comment on above: 1 Occurrences starti ng 12/05/2019 until 12/05/2019 Culture, Urine [facility] [employer] End: 09-25-2020 Culture, Urine Culture, Urine Microbiology Routine Dysuria 1 Occurrences starting 09/25/2020 until 09/25/2020 [employer] Phone: Comment on above: 1 Occurrences starti ng 09/25/2020 until 09/25/2020 Electrophoresis Prot ein, Serum without Reflex to Immunofixation Electrophoresis Protein, Serum without Reflex to Immunofixation Lab Routine Stage 3a chronic kidney disease (HCC) 10/23/2020 8:04 AM [employer] Phone: End: 10-23-2020 Immunofixation serum profile Immunofixation serum profile Lab Routine Stage 3a chronic kidney disease (HCC) 1 Occurrences starting 10/23/2020 until 10/23/2020 [facility] Phone: Comment on above: 1 Occurrences starti ng 10/23/2020 until 10/23/2020 Immunofixation serum profile Immunofixation serum profile Lab Routine Stage 3a chronic kidney disease (HCC) 10/23/2020 8:04 AM [employer] Phone: Protein Electrophore sis, Urine Protein Electrophoresis, Urine Lab Routine Stage 3a chronic kidney disease (HCC) 10/23/2020 8:05 AM [employer] Phone: Immunizations Immunization Date Immunization Notes Care Provider Gagan gomez 01-11-2023 influenza, injectabl e, quadrivalent, preservative free Jacinto Hayward DO Work Phone: [facility] Work Phone: 02-20-2022 influenza, injectabl e, quadrivalent, preservative free Roosevelt Radha [employer] Work Phone: [facility] 250 DO Work Phone: 02-20-2022 Pfizer COVID-19 Vac Bivalent 30 MCG/0.3ML Intramuscular Suspension [employer] Work Phone: [facility] 02-20-2022 Pfizer Purple Cap SARS-CoV-2 Jacinto Hayward DO Work Phone: [facility] Work Phone: 01-16-2021 influenza, injectabl e, quadrivalent, preservative free Roosevelt P House Work Phone: [facility] 250 DO Work Phone: 08-21-2020 COVID-19, Pfizer, PF , 30mcg/0.3mL Sr House DO Work Phone: [facility] 07-30-2020 COVID-19, Pfizer, PF , 30mcg/0.3mL Sr House DO Work Phone: [facility] 02-07-2020 influenza virus vaccine, unspecified formulation Roosevelt P [place] Work Phone: [facility] 250 DO Work Phone: 05-09-2006 influenza virus vaccine, unspecified formulation Roosevelt P House Work Phone: [facility] 250 DO Work Phone: Payers Date Payer Category Payer Self-pay [id number] 2018 Unknown [facility]ANNA MAN[facility] MEDICAID [id number] 2018-Present [phone] CLAIMS DEPARTMENT [address] [place] [address] [id number] 2018 Unknown 2018 Medicaid [id number] 1959 Unknown [id number] 2.16.840.1.169479.3.579.2. 355 1959 Unknown [id number] 2.16.840.1.419993.3.579.2. 176 1959 Unknown [id number] 2.16.840.1.499297.3.579.2. 173 1959 Unknown [id number] 2.16.840.1.272830.3.579.2. 173 1959 Unknown [id number] 2.16.840.1.932856.3.579.2. 173 1959 Unknown [id number] 2.16.840.1.596612.3.579.2. 173 1959 Unknown [id number] 2.16.840.1.404283.3.579.2. 173 1959 Unknown [id number] 2.16.840.1.535956.3.579.2. 173 1959 Unknown [id number] 2.16.840.1.044170.3.579.2. 173 1959 Unknown [id number] 2.16.840.1.866758.3.579.2. 173 1959 Unknown [id number] 2.16.840.1.403916.3.579.2. 593 1959 Unknown [id number] 2.16.840.1.631082.3.579.2. 593 1959 Unknown [id number] 2.16.840.1.433146.3.579.2. 356 1959 Unknown [id number] 2.16.840.1.265618.3.579.2. 356 1959 Unknown [id number] 2.16.840.1.830801.3.579.2. 718 1959 Unknown [id number] 2.16.840.1.724961.3.579.2. 1259 1959 Unknown [id number] 2.16.840.1.065197.3.579.2. 1259 1959 Unknown [id number] 2.16.840.1.377394.3.579.2. 1259 1959 Unknown [id number] 2.16.840.1.208593.3.579.2. 1244 1959 Unknown [id number] 1.2.840.169418.1.13.239.2. [id number] Private Health Insurance [id number] Unknown [id number] 2.16.840.1.367119.3.579.2. 531 Unknown [id number] 2.16.840.1.521454.3.579.2. 531 Unknown [id number] 2.16.840.1.363608.3.579.2. 531 Social History Date Type Detail Facility Start: 12-05-2019 End: 06-07-2023 Tobacco smoking status NHIS Current every day smoker [facility] History of tobacco use Cigarette Smoker [place] Start: 12-05-2019 End: 06-07-2023 Cigarettes smoked current (pack per day) - Reported [place] Start: 12-05-2019 End: 06-07-2023 Tobacco use and exposure Never used [place] Start: 12-05-2019 End: 06-07-2023 Alcohol intake Current drinker of alcohol (finding) [place] Start: 04-25-2018 Tobacco Comment last smoked at 0530 [place], [place] Start: 01-31-2018 Alcohol Comment rare [place], [place] Start: 1960 Sex Assigned At Not on file [place] Start: 1960 Sex Assigned At Male F [facility] Start: 08-25-2022 Tobacco smoking stat us NHIS Smoker (finding) [facility] Start: 06-07-2023 [facility] Phone: Start: 06-07-2023 Alcohol Comment occasional beer [facility] Work Phone: Start: 05-28-2023 End: 06-07-2023 Exposure to SARS-CoV-2 (event) Not sure [facility] Medical Equipment Procedure Code Equipment Code Equipment Origin al Text Equipment Identifier Dates Stent Lili Lathamp mansi Coat W/O [id number] Start: 02-02-2018 Clinical Notes 10-23-2020 to 06-07-2023 Jacinto Hayward, DO - 06/07/2023 2:30 PM ESTPatient Instructions Note Date & Type Note Facility 06-07-2023 History of Present illness Narrative Subjective Roxane Bonner is a 62 y.o. male Chief Complaint Follow-up 62-year-old gentleman returns for follow-up he is doing well from a cardiovascular standpoint. He otherwise continues smoking approximately a pack of cigarettes daily we have counseled him for 3 to 5 minutes in smoking cessation. He remains sedentary, he has no get up and go and we counseled him on dietary discretion, weight loss and exercises meaningful lifestyle changes for primary as well as secondary prevention. He does have a history of single-vessel ASHD with remote PCI of the RCA. Heart catheterization from August 2022 is reviewed with evidence of widely patent RCA stent, minimal coronary disease otherwise and evidence of endothelial dysfunction with KWAME grade II flow down all 3 epicardial arteries that improved with KWAME-3 flow with intracoronary nitroglycerin. Comorbidities unfortunately can continue to include diabetes, obesity, hypertension, sedentary lifestyle, tobacco use all of which portend increased cardiovascular event rate going forward in the future Recommendations: Continue current medical therapies, smoking cessation counseling, exercise and weight loss, follow-up otherwise in 1 year Review of Systems Constitutional: Positive for malaise/fatigue. Neurological: Positive for dizziness and headaches. Visit Vitals BP 84/56 (BP Location: Left arm, Patient Position: Sitting) Pulse 72 Ht 1.676 m (5' 6 ) Wt 93.9 kg (207 lb) BMI 33.41 kg/m Smoking Status Every Day BSA 2.09 m Objective Physical Exam Constitutional: Appearance: Normal appearance. He is normal weight. HENT: Nose: Nose normal. Neck: Vascular: No carotid bruit. Cardiovascular: Rate and Rhythm: Normal rate. Pulses: Normal pulses. Heart sounds: Normal heart sounds. Pulmonary: Effort: Pulmonary effort is normal. Abdominal: General: Bowel sounds are normal. Palpations: Abdomen is soft. Genitourinary: Rectum: Normal. Musculoskeletal: General: Normal range of motion. Cervical back: Normal range of motion. Right lower leg: No edema. Left lower leg: No edema. Skin: General: Skin is warm and dry. Neurological: General: No focal deficit present. Mental Status: He is alert. Psychiatric: Mood and Affect: Mood normal. Behavior: Behavior normal. Thought Content: Thought content normal. Judgment: Judgment normal. Current Medications Current Outpatient Medications: aspirin 81 mg EC tablet, Take 1 tablet (81 mg) by mouth once daily., Disp: , Rfl: coenzyme Q-10 200 mg capsule, Take 1 capsule (200 mg) by mouth once daily., Disp: , Rfl: glimepiride (Amaryl) 2 mg tablet, Take 1 tablet (2 mg) by mouth 2 times a day., Disp: , Rfl: isosorbide mononitrate ER (Imdur) 30 mg 24 hr tablet, 1 tablet (30 mg) once daily., Disp: , Rfl: lisinopril 10 mg tablet, Take 1 tablet (10 mg) by mouth once daily., Disp: , Rfl: metFORMIN (Glucophage) 1,000 mg tablet, Take 1 tablet (1,000 mg) by mouth 2 times a day with meals., Disp: , Rfl: metoprolol succinate XL (Toprol-XL) 25 mg 24 hr tablet, Take 0.5 tablets (12.5 mg) by mouth once daily., Disp: , Rfl: pregabalin (Lyrica) 150 mg capsule, Take 1 capsule (150 mg) by mouth 3 times a day., Disp: , Rfl: rosuvastatin (Crestor) 20 mg tablet, Take 1 tablet (20 mg) by mouth once daily., Disp: , Rfl: escitalopram (Lexapro) 10 mg tablet, Take 1 tablet (10 mg) by mouth once daily., Disp: , Rfl: Assessment/Plan 1. 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 Shortness of breath 3. Anxiety 4. Obesity (BMI 30-39.9) 5. Type 2 diabetes mellitus without complication, with long-term current use of insulin ([facility]) 6. Current every day smoker Scribe Attestation By signing my name below, Ainsley Estevez LPN , Scribe attest that this documentation has been prepared under the direction and in the presence of Jacinto Hayward DO. documented in this encounter [facility] Work Phone: 06-07-2023 Instructions Shefali Goerge CMA - 06/07/2023 2:30 PM EST Please bring all medicines, vitamins, and herbal supplements with you when you come to the office. Prescriptions will not be filled unless you are compliant with your follow up appointments or have a follow up appointment scheduled as per instruction of your physician. Refills should be requested at the time of your visit. documented in this encounter [facility] Work Phone: 10-01-2022 Chief complaint Narrative - Reported Cardiovascular procedure f/u: I had chest pain this morning ROXANE BONNER is being seen for a 1 month follow-up of cardiac cath.Patient presents to the office ambulatory with steady gait. Last evaluated in clinic by myself August 2022.August 27, 2022 uneventful cardiac cath with mild progression coronary artery disease with evidence of endothelial dysfunction. He was supposed to continue isosorbide but inadvertently has not been taking.He presents to the office today were right radial cath site is healed without adverse sequela. He reports that earlier today he was working in the backyard and had to utilize nitroglycerin due to an episode of chest pain. This was first utilization of nitroglycerin. Discussed the rationale behind long-acting nitrates and will initiate Nitropatch at this time.Results of recent cardiac catheterization reviewed in detail.Secondary prevention has been reviewed and appears to be optimal other than continued cigarette usage.Unfortunately, he is not ready to quit despite negative cardiovascular impact.Discussed the dynamic nature of coronary artery disease and the importance of seeking medical attention if new symptoms arise. -[facility] DO Work Phone: 10-30-2020 Evaluation note Diagnosis Stage 3a chronic kidney disease (HCC) documented in this encounter [employer] Work Phone: [phone]) 585-229906-17-2021 Evaluation note* Diagnosis Stage 3a chronic kidney disease ([facility]) Nephrolithiasis Calculus of kidney documented in this encounter [employer] Phone: [email or web address] note* Diagnosis Renal calculus Calculus of kidney PAULA (acute kidney injury) ([facility]) Acute kidney failure, unspecified Dysuria documented in this encounter [employer] Phone: evalriyyoo note* Diagnosis Renal calculus Calculus of kidney documented in this encounter [employer] Work Phone: evaluation noteNo assessment information available [facility] Work Phone: Evaluation note* Diagnosis Atherosclerosis of cherokee coronary artery of cherokee heart without angina pectoris Shortness of breath Anxiety Anxiety state, unspecified Obesity (BMI 30-39.9) Type 2 diabetes mellitus without complication, with long-term current use of insulin ([facility]) Current every day smoker documented in this encounter [facility] Work Phone: History of Present illness Narrative* The patient states he has been generally stable since the last visit. Comorbid Illnesses: diabetes mellitus, hypertension and hyperlipidemia. * Symptoms: denies chest pain at rest, worsened exertional chest pain, worsened dyspnea, worsened fatigue, worsened exercise intolerance, denies palpitations, denies edema, denies orthopnea, denies dizziness and denies orthostatic dizziness. * Associated symptoms: no syncope. * His symptoms limit his activities. * Disease Monitoring: The patient has had a weight loss. * Medications: the patient is adherent with his medication regimen. He denies medication side effects. [facility] 250 DO Work Phone: History of Present illness Narrative* The patient states he has been generally doing well since the last visit. Comorbid Illnesses: diabetes mellitus, hypertension and hyperlipidemia. * Symptoms: denies chest pain at rest, stable exertional chest pain, denies dyspnea, denies fatigue, denies exercise intolerance, denies palpitations, denies edema, denies dizziness and denies orthostatic dizziness. * Associated symptoms: no syncope. * His symptoms do not limit his activities. * Disease Monitoring: recent nitroglycerin use has been unchanged. The patient has had a stable weight. * Medications: the patient is adherent with his medication regimen. He denies medication side effects. -[facility] DO Work Phone: Reason for referral (narrative)* Consultation (Routine) - Authorized Specialty Diagnoses / Procedures Referred By Bishnu bajwa Referred To Contact Cardiology Diagnoses Atherosclerosis of cherokee coronary artery of cherokee heart without angina pectoris Shortness of breath Anxiety Obesity (BMI 30-39.9) Type 2 diabetes mellitus without complication, with long-term current use of insulin ([facility]) Current every day smoker Procedures Follow Up In Cardiology Jacinto Hayward DO [address] [facility] [address], [address] [address] Jacinto Hayward DO [address] [place] [address] [address], [address] [address] Referral ID Status Reason Start Date Expiration Date V isits Requested Visits Authorized [id number] Authorized 06/07/2023 06/06/2024 1 1 [facility] Work Phone: Summary Purpose Family History No Family History Records FoundUnknown Family Member Name Dates Details Family history of arterioscl erotic cardiovascular disease: Mother, Father, Brother(V17.49, Z82.49) Status:Active No pertinent family history: Sister(V49.89, Z78.9) Status:Active Unknown Family Member Name Dates Details Family history of arterioscl erotic cardiovascular disease: Mother, Father, Brother(V17.49, Z82.49) Status:Active No pertinent family history: Sister(V49.89, Z78.9) Status:Active Unknown Family Member Name Dates Details Family history of arterioscl erotic cardiovascular disease: Mother, Father, Brother(V17.49, Z82.49) Status:Active No pertinent family history: Sister(V49.89, Z78.9) Status:Active Relationship Condition Age at Onset Recorded Date/T nic father Myocardial infarction Unknown Cerebrovascular accident (CVA) Unknown Not Specified Congestive heart failure Unknown brother Leukemia Unknown Malignant neoplasm of prostate Unknown Unknown Family Member Name Dates Details Family history of arterioscl erotic cardiovascular disease: Mother, Father, Brother(V17.49, Z82.49) Status:Active No pertinent family history: Sister(V49.89, Z78.9) Status:Active Advance Directives No Advanced Directives Records FoundDocuments on File Type Date Recorded Patient Oncology Social Work Expl anation Advance Directives and Living Will Power of Well Logging Captain Latest Code Status on File Code Status Date Activated Date Inactivated Comments Full Code 04/25/2018 6:40 AM 04/25/2018 1:22 PM Documents on File Type Date Recorded Patient Oncology Social Work Expl anation Advance Directives and Living Will Power of Well Logging Captain Latest Code Status on File Code Status Date Activated Date Inactivated Comments Full Code 04/25/2018 6:40 AM 04/25/2018 1:22 PM Documents on File Type Date Recorded Patient Oncology Social Work Expl anation ACP-Advance Directive ACP-Power of Well Logging Captain Documents on File Type Date Recorded Patient Oncology Social Work Expl anation ACP-Advance Directive ACP-Power of Well Logging Captain Advance Directive Response Recorded Date/ Time Advance Directives No August 23, 2 023 12:59pm Assessments Diagnosis Renal colic Diagnosis Renal colic Reason for Referral Status Reason Specialty Diagnoses / Procedures Referred By Contact Referred To Contact Pending Review Radiology Diagnoses Renal colic Procedures CT ABDOMEN PELVIS WO CONTRAST Additional Contrast? None William Ford, CRUSHER ASSEMBLER - JEWELRY SALESPERSON [address] [place] [address] [place] [address] Status Reason Specialty Diagnoses / Procedures Referre d By Contact Referred To Contact Closed Radiology Diagnoses Stage 3a chronic kidney disease (HCC) Procedures US RENAL COMPLETE Pratik Miranda MD [address] [place] [address] Chief Complaint and Reason for Visit Chief Complaint ASCHCD Hypertension Chief Complaint Angina, Coronary Art jamel Chief Complaint * Annual f/u: 'I am getting chest discomfort' * ROXANE BONNER is being seen for an annual follow-up of coronary artery disease, dyslipidemia and hypertension. * Patient presents to the office ambulatory with steady gait. Last evaluated in clinic Dr. Paige August 2021. Patient has followed routinely with Dr. Paige since 2012 due to coronary artery disease and secondary prevention, normal LVEF. Patient follows routinely with PCP. He denies any hospitalizations since last office follow-up. * Patient presents to the office today where he reports increasing frequency and duration of exertional left sided chest discomfort with radiation into his upper forearm and occasionally his throat. Henoticed the symptoms greater than 1 month ago, has not had nitroglycerin to utilize. His prior PCI symptom was exertional heartburn. Today he reports exertional left-sided aching that will radiate into his throat and upper forearm, associated with exertional activity; seems to resolve within 5 minutes of rest. Denies any rest symptoms or awakening from sleep. He ambulated in from the parking lot today and maybe had a twinge . Remains asymptomatic throughout time of my exam. He goes on to report a significant change in exercise capacity and functional tolerance and just not feeling like I amokay . He has also noted increased dyspnea on exertion. Symptoms can be brought on by anxiety or emotional distress. * Secondary prevention remains suboptimal with continued daily tobacco abuse, most recent hemoglobin A1c 8.4. * From an activity standpoint he does not exercise on a routine basis, he does go to the grocery store and his caregiver to a female with multiple sclerosis. He has retired recently. Current progression of symptoms is causing significant anxiety. * Due to progressive symptomatology the risks, benefits and procedure of cardiac catheterization plusor minus coronary intervention were discussed including but not limited to 1:1000 myocardial infarction, stroke, urgent coronary artery bypass graft and rare recorded : 1:100 vascular complications and contrast-induced acute renal failure. The patient is in agreement to proceed. * Patient presents with no IVP allergies. Patient has no contraindication to antiplatelet therapy, noplanned surgical procedures in the near future. The medical regimen has been optimized including 2 antianginals. Concomitant medications have been reviewed. Last renal function has been reviewed. * He has been educated on utilization of nitroglycerin. Instructed to limit physical activity and seek emergent medical attention for concerning signs and symptoms. Additional Source Comments (unrecognized sect ion and content) No Status Records FoundNo Status Records FoundNo Status Records FoundNo Status Records FoundNo Status Records FoundNo Status Records FoundNo Status Records FoundNo Status Records FoundNo Status Records FoundNo Status Records FoundNo Status Records FoundNo Status Records Found INFORMATION SOURCE (unrecogn ized section and content) DATE CREATED AUTHOR 04/17/[address] [facility] DATE CREATED AUTHOR AUTHOR'S ORGANIZ ATION 04/17/2018 [facility] DATE CREATED AUTHOR AUTHOR'S ORGANIZ ATION 07/29/2019 [facility] DATE CREATED AUTHOR AUTHOR'S ORGANIZ ATION 10/25/2020 [facility] DATE CREATED AUTHOR AUTHOR'S ORGANIZ ATION 11/01/2020 [facility] DATE CREATED AUTHOR AUTHOR'S ORGANIZ ATION 04/30/2022 [facility] DATE CREATED AUTHOR AUTHOR'S ORGANIZ ATION 08/20/2022 [employer] DATE CREATED AUTHOR AUTHOR'S ORGANIZ ATION 09/02/2022 [facility] DATE CREATED AUTHOR AUTHOR'S ORGANIZ ATION 09/20/2022 [facility] DATE CREATED AUTHOR AUTHOR'S ORGANIZ ATION 12/15/2022 [facility] DATE CREATED AUTHOR AUTHOR'S ORGANIZ ATION 10/06/2023 [facility] DATE CREATED AUTHOR AUTHOR'S ORGANIZ ATION 11/08/2023 [facility] Reason for Visit (unrecogniz ed section and content) Status Reason Specialty Diagnoses / Procedures Referred By Contact Referred To Contact Pending Review Radiology Diagnoses Renal colic Procedures CT ABDOMEN PELVIS WO CONTRAST Additional Contrast? None William Ford, CRUSHER ASSEMBLER - JEWELRY SALESPERSON [address] [place] [address] [facility] [address] Scan [address] [place] [address] Status Reason Specialty Diagnoses / Procedures Referre d By Contact Referred To Contact Closed Radiology Diagnoses Stage 3a chronic kidney disease (HCC) Procedures US RENAL COMPLETE Pratik Miranda MD [address] [place] [address] Reason Comments Follow-up 6 months Care Teams (unrecognized sec tion and content) Team Status: Inactive Member Role Status Dates Roosevelt Crawley DO Primary Care Provider Active Bridget Paige DO Attending Provider Active Tree Hayward DO Referring Provider Active Team Status: Active Member Role Status Dates Roosevelt Crawley DO Primary Care Provider Active Team Status: Inactive Member Role Status Dates Roosevelt Crawley , Primary Care Provider Active W Bean Hayward DO Attending Provider Active Reduction Plant Supervisor Relationship Specialty Start Date End Date Shaikh Rae MD [address] [place] [address] PCP - General Internal Medicine 06/07/23 Jacinto Hayward DO [address] [facility] [address], [address] [place] [address] Consulting Physician Cardiology 06/07/23 Goals (unrecognized section and content) Goals may be documented in a n alternate sectionGoals may be documented in an alternate section FOR RECORDS PERTAINING TO PATIENTS WHO ARE OR HAVE BEEN ENROLLED IN A CHEMICAL DEPENDENCY/SUBSTANCEABUSE PROGRAM, SOME INFORMATION MAY BE OMITTED. This clinical summary was aggregated from multiple sources. Caution should be exercised in using it in the provision of clinical care. This summary normalizes information from multiple sources, and as a consequence, information in this document may materially change the coding, format and clinical context of patient data. In addition, data may be omitted in some cases. CLINICAL DECISIONS SHOULD BE BASED ON THE PRIMARY CLINICAL RECORDS. [employer] provides no warranty or guarantee of the accuracy or completeness of information in this document.
[2023-11-23 12:41] LABS: Estimated Average Glucose 154 mg/dL
[2023-11-23 12:50] LABS: Basophils Absolute Auto 0.1 10^3/uL (0.0-0.1); Basophils Percent Auto 1.2 % (0.2-2.0); Eosinophils Absolute Auto 0.5 10^3/uL (0.0-0.7); Eosinophils Percent Auto 5.1 % (0.9-7.0); Hematocrit 43.6 % (42.0-54.0); Hemoglobin 14.4 g/dL (14.0-18.0); Immature Granulocytes Abs Auto 0.09 10^3/uL (0.00-0.03); Lymphocytes Absolute Auto 3.5 10^3/uL (1.2-3.8); Lymphocytes Percent Auto 37.6 % (20.5-60.0); Mean Corpuscular Hemoglobin 32.1 pg (25.9-34.0); Mean Corpuscular Volume 97.1 fL (80.0-94.0); Mean Platelet Volume 9.5 fL (9.5-13.5); Monocytes Absolute Auto 0.8 10^3/uL (0.3-0.8); Monocytes Percent Auto 8.9 % (1.7-12.0); Neutrophils Absolute Auto 4.2 10^3/uL (1.4-6.5); Neutrophils Percent Auto 46.2 % (43.0-75.0); Platelet Count 221 10^3/uL (150-450); Red Blood Count 4.49 10^6/uL (4.70-6.10); Red Cell Distribution Width 14.2 % (11.0-15.0); White Blood Count 9.2 10^3/uL (4.0-11.0)
[2023-11-23 12:57] LABS: Alanine Aminotransferase 46 U/L (16-63); Albumin Globulin Ratio 1.2; Alkaline Phosphatase 65 U/L (46-116); Aspartate Amino Transferase 30 U/L (15-37); BUN Creatinine Ratio 17.5; Bilirubin Total 0.6 mg/dL (0.2-1.0); Calcium 9.1 mg/dL (8.5-10.1); Chloride 105 mmol/L (98-107); Cholesterol 110 mg/dL (<=200); Estimated GFR (African America >60 (>=60); Estimated GFR (Non-African Ame 58 (>=60); Globulin 3.3 g/dL; Glucose 101 mg/dL (74-106); HDL Cholesterol 37 mg/dL (40-60); Sodium 142 mmol/L (136-145); Total Protein 7.3 g/dL (6.4-8.2); Triglycerides 216 mg/dL (<=150); VLDL CHOLESTEROL 43.2 mg/dL
== END 2023-11-23 12:16 | disposition home or self-care (01) ==
LOC: LAB 12:16
PROVIDERS: PCP Internal Medicine; Visit Provider Internal Medicine
DX: E78.5 Hyperlipidemia, unspecified (principal); E11.22 Type 2 diabetes mellitus with diabetic chronic kidney disease; N18.31 Chronic kidney disease, stage 3a; E11.42 Type 2 diabetes mellitus with diabetic polyneuropathy; I12.9 Hypertensive chronic kidney disease with stage 1 through stage 4 chronic kidney disease, or unspecified chronic kidney disease
CPT/HCPCS: 36415; 80053; 80061; 83036; 85025

== ENCOUNTER 2024-10-31 08:01 | Outpatient (OUT) | payer OTHER, SELFPAY ==
--- OUTSIDE RECORDS SUMMARY | 2024-10-31 08:20 | XMS_ITS | CCD ---
Author Organization [facility] Care Team Providers Care Supervisor Hot Dip Tinning Name Role Phone JINNY LOPEZ Unavailable Unavailable BRIDGET MUNOZ Unavailable Unavailable HOUSE, [place] Unavailable Unavailable House, Sr Roosevelt Garcia Primary Care Provider House DO, Sr Roosevelt P Primary Care Provider [phone] HOUSE, SR [place]T P Primary Care Unavailable [...] Unavailable House, DO Roosevelt Primary Care Provider [phone] DO Bridget Munoz Attending Provider [phone] DO Tree Marcelino Referring Provider HOUSE, DR AHUMADA Primary Care Unavailable HOUSE, DR AHUMADA Admitting Unavailable HOUSE, DR AHUMADA Attending Unavailable HOUSE, DR AHUMADA Consulting Unavailable HOUSE, DR AHUMADA Primary Care Unavailable HOUSE, DR AHUMADA Admitting Unavailable HOUSE, DR AHUMADA Attending Unavailable HOUSE, DR AHUMADA Consulting Unavailable House, DO Roosevelt Primary Care Provider DO Tree Marcelino Attending Provider Tree Marcelino Admitting Unavailable Tree Marcelino Attending Unavailable House, Roosevelt Primary Care Unavailable Bridget Munoz Admitting Unavailable Bridget Munoz Attending Unavailable Tree Marcelino Referring Unavailable Roosevelt Crawley Primary Care Unavailable Tree Marcelino Admitting Unavailable Tree Marcelino Attending Unavailable Roosevelt Crawley Primary Care Unavailable Denisa, Dr. Roosevelt Barnes Primary Care Tucker Marcelino, Dr. Jacinto Del Angel Attending Tucker Crawley, Dr. Roosevelt Barnes [facility] Care Tucker Hughes, . Glenda Donjarrett Patel Referring Aedlaide Hughes, Ms. Glenda Donjarrett Patel Attending ROOSEV[facility]T [facility] Care Unavailable Butch JAQUEZ, [facility] Primary Care Provider Jacinto Marcelino DO Unavailable Kody JAQUEZ, Ajay Primary Care Provider Elizabeth OVERCOILER, Cris Unavailable JACINTO MARCELINO Attending Unavailable JACINTO MARCELINO Referring Unavailable SHAIKH RAE Primary [facility] Unavailable Elizabeth OVERCOILER, Cris Unavailable [phone] ELIZABETH, CRIS Attending Unavailabl e GRANT LOZANO Attending Unavailable GRANT LOZANO Attending Unavailable GRANT LOZANO Attending Unavailable GRANT LOZANO Attending Unavailable MALGORZATA HOLLIDAY Attending Unavailable JOHNSON, CRIS Attending UnavailGRANT Saldana Attending Unavailable CRIS JOHNSON Referring Unavailabl e JOHNSON, CRIS Attending Unavailabl e JOHNSON, CRIS Attending Unavailabl e Allergies Allergy Classification Reported Allergen(s) Allergy Type Date of Onset Reaction(s) Facility Penicillins (antibiotic) (6 sources) Penicillins Drug Allergy 01-29-20 18 Hives, Itching, Rash [facility] Sulfamethoxazole / Trimethoprim (6 sources) Sulfamethoxazole / Trimethoprim Drug Allergy 08-03-19 19 Other (See Comments) [facility] Work Phone: (5 sources) Penicillins; Translations: [PENICILLINS] Propensity to adverse reactions to drug 01-29-20 18 Hives, Itching, Rash [facility]- [place], [place] (3 sources) Sulfamethoxazole / Trimethoprim Drug Allergy 08-03-19 19 Other (See Comments) [facility] [place] (4 sources) Penicillins; Translations: [Penicillins] Allergy to drug (finding) Itching, Rash, Swelling [facility] [facility] DO Work Phone: (5 sources) Sulfonamides (Antibiotic); Translations: [Sulfa Drugs] Allergy to drug (finding) Itching, Rash, Swelling [facility] (4 sources) Sulfonamides (Antibiotic); Translations: [Sulfa (Sulfonamide Antibiotics)] Allergy to substance 08-26-19 Itching, Rash, Swelling [facility] (1 source) Penicillins Drug allergy (disorder) 08-28-19 [facility] (1 source) Penicillin; Translations: [penicillin] Drug Allergy [facility] (1 source) Penicillins Drug Allergy 05-17-19 Itching, Rash, Swelling [facility] (20 sources) Penicillins Propensity to adverse reactions 05-24-19 [facility] (20 sources) Sulfonamides (Antibiotic) Propensity to adverse reactions 05-24-19 [facility] Medications Current Medications Medication Drug Class(es) Dates Sig (Normalized) Sig (Original) aspirin 81 mg delayed release oral tablet (20 sources) Platelet Aggregation Inhibitor, Nonsteroidal Anti-inflammatory Drug Start: 08-25-2022 take 81 mg by mouth once daily Aspirin Active 81 MG PO Daily August 25, 2022 12:00am ASPIRIN 81 MG ch ewable tablet Chew 81 mg in the morning. Active atorvastatin 20 mg oral tablet (7 sources) HMG-CoA Reductase Inhibitor take 1 tablet by mouth once daily atorvastatin (LIPITOR) 20 MG tablet Take 20 mg by mouth daily 0 Active Blood Pressure Monitoring (Blood Pressure Cuff) misc (20 sources) Start: Blood Pressure Monitoring (Blood Pressure Cuff) misc Indications: Primary hypertension (CMS/HCC) 1 each in the morning and 1 each before bedtime. 1 each 02/13/2024 Active ubidecarenone 200 mg oral capsule (14 sources) take 1 capsule by mouth once daily coenzyme Q-10 200 mg capsule Take 1 capsule (200 mg) by mouth once daily. 0 Active Coenzyme Q10 (CO Q 10) 10 MG CAPS Take by mouth daily 0 Active Continuous Glucose Controller Repairer And Tester (Dexcom G7 Controller Repairer And Tester) device (17 sources) Start: 06-25-2024 Continuous Glucose Controller Repairer And Tester (Dexcom G7 Controller Repairer And Tester) device Indications: Type 2 diabetes mellitus with diabetic polyneuropathy (CMS/HCC) 1 each continuously 1 each 06/25/2024 Active Continuous Glucose Sensor (Dexcom G7 Sensor) misc (17 sources) Start: 06-25-2024 Continuous Glucose Sensor (Dexcom G7 Sensor) [facility] [place] Indications: Type 2 diabetes mellitus with diabetic polyneuropathy (CMS/HCC) 1 each continuously 3 each 11 06/25/2024 Active 0.5 ml dulaglutide 1.5 mg/ml auto-injector (3 sources) GLP-1 Receptor Agonist Start: 10-02-2024 End: 10-30-2024 Dulaglutide (Trulicity) 0.75 MG/0.5ML solution auto-injector Indications: Type 2 diabetes mellitus with stage 3a chronic kidney disease, without long-term current use of insulin (HCC) (CMS/HCC) Inject 0.75 mg under the skin every 7 (seven) days for 28 days 2 mL 1 10/02/2024 10/30/2024 Active empagliflozin 25 mg oral tablet (20 sources) Sodium-Glucose Cotransporter 2 Inhibitor Start: 10-05-2023 End: 03-31-2025 take 1 tablet by mouth once daily empagliflozin (Jardiance) 25 MG Indications: Type 2 diabetes mellitus with diabetic polyneuropathy (CMS/HCC) Take 1 tablet (25 mg) by mouth Daily 90 tablet 1 10/02/2024 03/31/2025 Active Start: 08-25-2022 take 1 tablet by mikey once daily Empagliflozin (Jardiance) 25 mg Tablet Active 25 MG PO Daily August 25, 2022 12:00am escitalopram 20 mg oral tablet (20 sources) Serotonin Reuptake Inhibitor Start: 01-05-2024 End: 12-31-2024 take 1 tablet by mouth once daily escitalopram (Lexapro) 20 MG tablet Indications: Generalized anxiety disorder (CMS/HCC) Take 1 tablet (20 mg) by mouth Daily 90 tablet 1 10/02/2024 12/31/2024 Active Start: 10-05-2023 End: 04-02-2024 take 1 tablet by mouth once daily escitalopram (Lexapro) 10 MG tablet Indications: Generalized anxiety disorder (CMS/HCC) Take 1 tablet (10 mg) by mouth Daily 90 tablet 1 10/05/2023 01/05/2024 Discontinued (Dose adjustment) take 1 tablet by mikey th once daily escitalopram (Lexapro) 10 mg tablet [...] 07/13/2018 Active glimepiride 2 mg oral tablet (20 sources) Sulfonylurea Start: 10-05-2023 End: 12-31-2024 take 1 tablet by mouth before mealtime glimepiride (Amaryl) 2 MG tablet Indications: Type 2 diabetes mellitus with diabetic polyneuropathy (CMS/HCC) Take 1 tablet (2 mg) by mouth in the morning. Take before meals. 90 tablet 1 10/02/2024 12/31/2024 Active Start: 08-25-2022 take 2 mg by mouth twice daily Glimepiride Active 2 MG PO Twice daily August 25, 2022 12:00am hydrOXYzine hydrochloride 25 mg oral tablet (20 sources) Antihistamine Start: 11-14-2023 End: 03-26-2024 take 1 tablet by mouth every eight hours hydrOXYzine HCl (Atarax) 25 MG tablet Indications: BREONNA (generalized anxiety disorder) (CMS/HCC) Take 1 tablet (25 mg) by mouth every 8 (eight) hours if needed for itching 120 tablet 3 03/26/2024 Active ibuprofen 200 mg oral tablet (9 sources) Nonsteroidal Anti-inflammatory Drug Start: 08-02-2018 take 1 tablet by mouth every six hours as needed for pain ibuprofen (ADVIL;MOTRIN) 200 MG tablet Indications: Dysuria Take 1 tablet by mouth every 6 hours as needed for Pain 30 tablet 0 08/02/2018 Active lisinopril 10 mg oral tablet (20 sources) Angiotensin Converting Enzyme Inhibitor Start: 10-05-2023 End: 09-22-2024 lisinopril 10 MG tablet Indications: Type 2 diabetes mellitus with diabetic polyneuropathy (CMS/HCC) , Type 2 diabetes mellitus with stage 3a chronic kidney disease, without long-term current use of insulin (HCC) (CMS/HCC) , Primary hypertension (CMS/HCC) Take 1 tablet (10 mg) by mouth Daily 90 tablet 1 03/26/2024 Active Start: 07-31-2018 take 10 mg by mouth once daily Lisinopril Active 10 MG PO Daily August 25, 2022 12:00am metFORMIN hydrochloride 1000 mg oral tablet (20 sources) Biguanide Start: 10-05-2023 End: 03-31-2025 take 1 tablet by mouth in the morning metFORMIN (Glucophage) 1000 MG tablet Indications: Type 2 diabetes mellitus with diabetic polyneuropathy (CMS/HCC) , Type 2 diabetes mellitus with stage 3a chronic kidney disease, without long-term current use of insulin (HCC) ([facility]) Take 1 tablet (1,000 mg) by mouth in the morning and 1 tablet (1,000 mg) in the evening. Take with meals. 180 tablet 1 10/02/2024 03/31/2025 Active Start: 08-25-2022 take 1000 mg by mout h twice daily Metformin Active 1000 MG PO Twice daily August 25, 2022 12:00am Methylcobalamin (O83-[id number] PO) (20 sources) take 1000 mg by mouth once daily Methylcobalamin (Q62-HIMFOO PO) Take 1,000 mg by mouth 1 (one) time each day Active 24 hr metoprolol succinate 25 mg extended release oral tablet (20 sources) beta-Adrenergic Rashawn Start: 08-15-19 take 1 tablet by mouth once daily metoprolol succinate XL (Toprol-XL) 25 MG 24 hr tablet Take 25 mg by mouth Daily 08/15/2023 Active Start: 08-25-2022 take 12.5 mg by mouth once latoya ly Metoprolol Succinate Active 12.5 MG PO Daily [...] mg) by mouth once daily. 0 Active 24 hr nitroglycerin 0.2 mg/hr transdermal system (20 sources) Nitrate Vasodilator Start: 06-12-2024 nitroglyce rin (Nitrostat) 0.[address] 0.4 mg under the tongue every 5 (five) minutes if needed for chest pain 06/12/2024 Active Start: 06-12-2024 apply 0.2 mg transde rmal route every hour nitroglycerin (Nitrodur) 0.2 MG/HR patch Place 1 patch on the skin Daily 06/12/2024 Active Start: 09-29-2022 apply 1 dose transde rmal route once daily, then apply 1 dose transdermal route every twenty-four hours Nitroglycerin 0.2 MG/HR Transdermal Patch 24 Hour APPLY PATCH FOR 12 TO 14 HOURS DAILY, THEN REMOVE Quantity: 30 Refills: 6 Ordered: 29-Sep-2022 Glenda Sutherland Start : 29-Sep-2022 Active Start: 08-18-2022 Nitroglycerin Active 0.4 MG SUBLINGUAL Q5M August 25, 2022 12:00am End: 06-25-2024 nitroglycerin (Nitrostat) 0. [address] 0.3 mg under the tongue every 5 (five) minutes if needed for chest pain 06/25/2024 Discontinued omeprazole 20 mg delayed release oral capsule (20 sources) Proton Pump Inhibitor Start: 02-13-2024 End: 08-06-2025 take 1 capsule by mouth before mealtime omeprazole (PriLOSEC) [address] capsule Indications: Gastroesophageal reflux disease without esophagitis Take 1 capsule (20 mg) by mouth in the morning. Take before meals. Do not crush or chew. 90 capsule 1 10/02/2024 12/31/2024 Active pregabalin 150 mg oral capsule (20 sources) Start: 06-29-2024 End: 12-31-2024 take 1 capsule by mouth in the morning, then take 1 capsule by mouth in the evening, then take 1 capsule by mouth at bedtime pregabalin (Lyrica) 150 MG capsule Indications: Type 2 diabetes mellitus with diabetic polyneuropathy (CMS/HCC) Take 1 capsule (150 mg) by mouth in the morning and 1 capsule (150 mg) in the evening and 1 capsule (150 mg) before bedtime. 90 capsule 2 10/02/2024 12/31/2024 Active Start: 06-29-2024 take 1 capsule by mo uth in the morning pregabalin (Lyrica) 150 MG capsule Indications: Type 2 diabetes mellitus with diabetic polyneuropathy (CMS/HCC) Take 1 capsule (150 mg) by mouth in the morning and 1 capsule (150 mg) in the evening and 1 capsule (150 mg) before bedtime. Do not start before June 29, 2024. 270 capsule 06/29/2024 Active Start: 06-29-2024 take 1 capsule by mo uth in the morning pregabalin (Lyrica) 150 MG capsule Indications: Type 2 diabetes mellitus with diabetic polyneuropathy (CMS/HCC) Take 1 capsule (150 mg) by mouth in the morning and 1 capsule (150 mg) in the evening and 1 capsule (150 mg) before bedtime. Do not start before June 29, 2024. 270 capsule 06/29/2024 Active Start: 06-29-2024 take 1 capsule by mo uth in the morning pregabalin (Lyrica) 150 MG capsule Indications: Type 2 diabetes mellitus with diabetic polyneuropathy (CMS/HCC) Take 1 capsule (150 mg) by mouth in the morning and 1 capsule (150 mg) in the evening and 1 capsule (150 mg) before bedtime. Do not start before June 29, 2024. 270 capsule 06/29/2024 Active Start: 06-29-2024 take 1 capsule by mo uth in the morning pregabalin (Lyrica) 150 MG capsule Indications: Type 2 diabetes mellitus with diabetic polyneuropathy (CMS/HCC) Take 1 capsule (150 mg) by mouth in the morning and 1 capsule (150 mg) in the evening and 1 capsule (150 mg) before bedtime. Do not start before June 29, 2024. 270 capsule 06/29/2024 Active Start: 10-05-2023 End: 06-19-2024 take 1 capsule by mouth in the morning, then take 1 capsule by mouth in the evening, then take 1 capsule by mouth at bedtime pregabalin (Lyrica) 150 MG capsule Indications: Type 2 diabetes mellitus with diabetic polyneuropathy (CMS/HCC) Take 1 capsule (150 mg) by mouth in the morning and 1 capsule (150 mg) in the evening and 1 capsule (150 mg) before bedtime. 270 capsule 03/06/2024 06/19/2024 Discontinued Start: 08-25-2022 take 150 mg by mouth three times daily Pregabalin Active 150 MG PO Three times daily August 25, 2022 12:00am rosuvastatin calcium 20 mg oral tablet (20 sources) HMG-CoA Reductase Inhibitor Start: 11-14-2023 End: 12-31-2024 take 1 tablet by mouth once daily rosuvastatin (Crestor) 20 MG tablet Indications: Hyperlipidemia, unspecified (CMS/HCC) Take 1 tablet (20 mg) by mouth Daily 90 tablet 1 10/02/2024 12/31/2024 Active Start: 11-04-2019 take 20 mg by mouth once daily Rosuvastatin Active 20 MG PO Daily August 25, 2022 12:00am tamsulosin hydrochloride 0.4 mg oral capsule (3 sources) alpha-Adrenergic Rashawn Start: 01-30-2018 take 1 capsule by mouth [...] Drug Class(es) Dates Sig (Normalized) Sig (Original) dexamethasone 1 mg/ml / neomycin 3.5 mg/ml / polymyxin b 25390 unt/ml ophthalmic suspension (2 sources) Aminoglycoside Antibacterial, Polymyxin-class Antibacterial, Corticosteroid Start: 10-20-2023 End: 01-05-2024 take 1 drop(s) into the eye(s) four times daily neomycin-polymyxi n-dexAMETHasone (Maxitrol) 3.5-84208-0.1 ophthalmic suspension instill 1 DROP IN THE RIGHT EYE FOUR TIMES DAILY FOR 7 DAYS 10/20/2023 01/05/2024 Discontinued (Therapy completed) 24 hr isosorbide mononitrate 30 mg extended release oral tablet (20 sources) Nitrate Vasodilator Start: 08-25-2022 End: 10-02-2024 take 1 tablet by mouth in the morning, then take 1 tablet by mouth every twenty-four hours isosorbide mononitrate ER (Imdur) 30 MG 24 hr tablet Take 30 mg by mouth in the morning. 08/25/2022 10/02/2024 Discontinued (Therapy completed) Start: 08-18-2022 take 1 tablet by mikey th once daily Isosorbide Mononitrate ER 30 MG Oral Tablet Extended Release 24 Hour TAKE 1 TABLET DAILY DIRECTED. Quantity: 30 Refills: 6 Ordered: 18-Aug-2022 Glenda Sutherland Start : 18-Aug-2022 Active 24 hr nicotine 0.875 mg/hr transdermal system (1 source) Cholinergic Nicotinic Agonist Start: 08-18-2022 apply 1 dose transdermal route once daily GNP Nicotine 21 MG/24HR Transdermal Patch 24 Hour APPLY 1 PATCH DAILY DIRECTED. Quantity: 30 Refills: 0 Ordered: 18-Aug-2022 Glenda Sutherland Start : 18-Aug-2022 Active Problems Active Problems Problem Classification Problem Date Documented Date Episodic/Chronic Acquired foot deformities (6 sources) Toe joint rigid; Translations: [Hallux rigidus, left foot] 01-26-2024 Chronic Acquired foot deformities (6 sources) Toe joint rigid; Translations: [Hallux rigidus, right foot] 01-26-2024 Chronic Acute and unspecified renal failure (1 source) Acute injury of kidney; Translations: [Acute kidney failure, unspecified] Episodic Anxiety disorders (20 sources) Anxiety; Translations: [Anxiety disorder, unspecified] Onset: 05-30-2023 Resolved: 10-02-2024 06-07-2023 Chronic Chronic kidney disease (20 sources) Chronic kidney disease stage 3A ; Translations: [Stage 3a chronic kidney disease (HCC)] Chronic Chronic obstructive pulmonary disease and bronchiectasis (6 sources) Chronic obstructive pulmonary disease, unspecified; Translations: [Chronic obstructive lung disease] Onset: 06-12-2024 Chronic Congestive heart failure; nonhypertensive (20 sources) Chronic heart failure co-occurrent with normal ejection fraction; Translations: [Chronic diastolic (congestive) heart failure] Onset: 05-30-2023 05-30-2023 Chronic Coronary atherosclerosis and other heart disease (20 sources) Atherosclerotic heart disease of [place] coronary artery without angina pectoris; Translations: [Coronary atherosclerosis] Onset: 04-04-2018 06-07-2023 Chronic Coronary atherosclerosis and other heart disease (2 sources) Coronary angioplasty status; Translations: [Coronary angioplasty status] Onset: 06-12-2024 Episodic Diabetes mellitus with complications (20 sources) Type 2 diabetes mellitus with diabetic neuropathy, unspecified; Translations: [Type 2 diabetes mellitus] Onset: 04-19-2022 Chronic Diabetes mellitus with complications (1 source) Diabetes mellitus with complications Onset: 04-04-2018 Diabetes mellitus without complication (13 sources) Diabetes mellitus; Translations: [Diabetes mellitus without mention of complication, type II or unspecified type, not stated as uncontrolled] Onset: 07-30-2021 Chronic Disorders of lipid metabolism (20 sources) Hyperlipidemia; Translations: [Other and unspecified hyperlipidemia] Onset: 08-27-2022 05-17-2023 Chronic Esophageal disorders (20 sources) Gastroesophageal reflux disease without esophagitis; Translations: [Gastro-esophageal reflux disease without esophagitis] Onset: 02-13-2024 02-13-2024 Chronic Essential hypertension (20 sources) Hypertensive disorder; Translations: [Unspecified essential hypertension] Onset: 08-27-2022 05-17-2023 Chronic Essential hypertension (1 source) Essential hypertension Onset: 04-04-2018 Genitourinary symptoms and ill-defined conditions (1 source) Dysuria; Translations: [Dysuria] Episodic Hyperplasia of prostate (1 source) Benign prostatic hyperplasia without lower urinary tract symptoms; Translations: [BENIGN PROSTATIC HYPRPLASIA WO LUTS] Onset: 04-24-2022 Chronic Mycoses (4 sources) Onychomycosis; Translations: [Tinea unguium] 01-26-2024 Episodic Neoplasms of unspecified nature or uncertain behavior (2 sources) Neoplasm of uncertain behavior of skin; Translations: [Neoplasm of uncertain behavior of skin] 08-06-2024 Episodic Nonspecific chest pain (5 sources) Tight chest; Translations: [Other chest pain] Onset: 05-17-2023 05-17-2023 Episodic Open wounds of extremities (3 sources) Open wound of upper limb; Translations: [Unspecified open wound of unspecified upper arm, initial encounter] Onset: 10-17-2024 10-17-2024 Episodic Other aftercare (2 sources) intermediate school teacher (current) use of insulin; Translations: [intermediate school teacher (current) use of insulin (Multi)] Onset: 05-17-2023 Episodic Other connective tissue disease (8 sources) Pain in left foot; Translations: [Pain in left foot] 08-06-2024 Episodic Other connective tissue disease (8 sources) Pain in right foot; Translations: [Pain in right foot] 08-06-2024 Episodic Other lower respiratory disease (2 sources) Dyspnea; Translations: [Shortness of breath] Onset: 06-07-2023 06-07-2023 Episodic Other nutritional; endocrine; and metabolic disorders (6 sources) Obesity; Translations: [Obesity, unspecified] Chronic Other nutritional; endocrine; and metabolic disorders (20 sources) Body mass index 30+ - obesity; Translations: [Obesity, unspecified] Onset: 06-07-2023 06-07-2023 Chronic Other nutritional; endocrine; and metabolic disorders (2 sources) Obesity, unspecified; Translations: [Obesity, unspecified] Onset: 06-07-2023 Chronic Other screening for suspected conditions (not mental disorders or infectious disease) (11 sources) Abnormal results of function studies of other organs and systems; Translations: [Nonspecific abnormal results of function study] Onset: 05-17-2023 05-17-2023 Episodic Residual codes; unclassified (1 source) Other specified postprocedural states; Translations: [Other specified postprocedural states] Onset: 08-27-2022 Episodic Substance-related disorders (20 sources) Smokes tobacco daily; Translations: [Tobacco use disorder] Onset: 08-27-2022 Resolved: 10-02-2024 06-07-2023 Chronic Superficial injury; contusion (4 sources) Contusion of left foot; Translations: [Contusion of left foot, initial encounter] 09-04-2024 Episodic Unclassified (1 source) Family hx of ischem heart dis and oth dis of the circ sys / Z82.49(ICD-9) Onset: 04-04-2018 Unclassified (2 sources) Athscl heart disease of [place] coronary artery w/o ang pctrs / I25.10(ICD-9) Onset: 04-04-2018 Unclassified (1 source) Peripheral vascular angioplasty status / Z98.62(ICD-9) Onset: 04-04-2018 Unclassified (1 source) Pure hypercholesterolemia, unspecified / E78.00(ICD-9) Onset: 04-04-2018 Unclassified (1 source) intermediate school teacher (current) use of oral hypoglycemic drugs / Z79.84(ICD-9) Onset: 04-04-2018 Unclassified (1 source) intermediate school teacher (current) use of aspirin / Z79.82(ICD-9) Onset: 04-04-2018 Unclassified (1 source) Nicotine dependence, unspecified, uncomplicated / F17.200(ICD-9) Onset: 04-04-2018 Unclassified (1 source) Atherosclerotic heart disease of [place] coronary artery with unspecified angina pectoris; Translations: [Atherosclerotic heart disease of [place] coronary artery with unspecified angina pectoris] Onset: 08-27-2022 Unclassified (1 source) Encounter for preprocedural laboratory examination; Translations: [Encounter for preprocedural laboratory examination] Onset: 08-25-2022 Unclassified (1 source) I25.10 - Atherosclerotic heart disease of [place] coronary artery without angina pectoris; Translations: [I25.10 - Atherosclerotic heart disease of [place] coronary artery without angina pectoris] Onset: 09-07-2021 Viral infection (8 sources) Verruca plantaris; Translations: [Plantar wart] 08-06-2024 Episodic Past or Other Problems Problem Classification Problem Date Documented Da te Episodic/Chronic Calculus of urinary tract (20 sources) Calculus of kidney; Translations: [Renal colic] Onset: 01-28-2018 02-02-2018 Episodic Malaise and fatigue (1 source) Other fatigue; Translations: [OTHER FATIGUE] Onset: 08-05-2021 Episodic Mood disorders (20 sources) Mood disorders Onset: 05-30-2023 05-30-2023 Other connective tissue disease (2 sources) Pain of toes of bilateral feet; Translations: [Pain in right toe(s)] 01-26-2024 Episodic Other gastrointestinal disorders (20 sources) Dysphagia; Translations: [Dysphagia, unspecified] Onset: 01-05-2024 01-05-2024 Episodic Other injuries and conditions due to external causes (2 sources) Choking due to food in larynx; Translations: [Food in larynx causing asphyxiation, initial encounter] 01-05-2024 Episodic Other nutritional; endocrine; and metabolic disorders (1 source) Abnormal weight gain; Translations: [ABNORMAL WEIGHT GAIN] Onset: 08-05-2021 Episodic Other skin disorders (20 sources) H/O: psoriasis; Translations: [Personal history of diseases of the skin and subcutaneous tissue] Onset: 02-13-2024 02-13-2024 Episodic Residual codes; unclassified (20 sources) History of cardiac catheterization; Translations: [Other specified postprocedural states] Onset: 10-05-2023 10-05-2023 Episodic Results Test Name Value Interpretation Reference Range Facility HbA1c (Bld) [Mass fraction]o n 10-02-2024 Interpretation and review of laboratory results Abnormal [facility] - Hematology and Cell countson 10-02-2024 HbA1c (Bld) [Mass fraction] 8.5 % [facility] HbA1c (Bld) [Mass fraction]o n 03-26-2024 Interpretation and review of laboratory results Abnormal [facility] - Hematology and Cell countson 03-26-2024 HbA1c (Bld) [Mass fraction] 8.1 % [facility] Tobacco Screening.on 023 Adult depression screening assessment No [facility] [employer] DO Work Phone: Tobacco use status CPHS a) Yes [facility] [place] [employer] DO Work Phone: Tobacco Screening. Yes [facility] [place] 250 DO Work Phone: Activated partial thrombopla stin time (aPTT) in platelet poor plasma by coagulation aOrdered By: Tree Marcelino on 08-25-2022 aPTT Coag (PPP) [Time] 32.0 s 25.1-36.5 [facility] Basophils Auto (Bld) [#/Vol] Ordered By: Tree Marcelino on 08-25-2022 Basophils (Bld) [#/Vol] 0.1 10*3/uL 0.0-0.2 [facility] Basophils/100 WBC Auto (Bld) Ordered By: Tree Marcelino on 08-25-2022 Basophils/100 WBC (Bld) 1.0 % . [facility] Blood Urea Nitrogenon 2022 Urea nitrogen [Mass/Vol] 20 mg/dL Normal 7-25 [facility] Comment on above: Performed By: #### C BC, PP, LYTES, BUN, CREAT, LIPID #### [facility] [address] Carbon dioxide, total [Moles /volume] in Serum or PlasmaOrdered By: Tree Marcelino on 08-25-2022 CO2 [Moles/Vol] 25.8 mmol/L 21.0-31.0 [facility] Chloride [Moles/volume] in S lubna or PlasmaOrdered By: Tree Marcelino on 08-25-2022 Chloride [Moles/Vol] 106 mmol/L 98-107 [facility] Cholesterol [Mass/volume] in Serum or PlasmaOrdered By: Tree Marcelino on 08-25-2022 Cholesterol [Mass/Vol] 101 mg/dL 140-200 [facility] Comment on above: Chol less than 200 m g/dl low riskChol 201-239 mg/dl borderline riskChol 240 mg/dl and greater high risk Cholesterol in LDL Calc [Mas s/Vol]Ordered By: Tree Marcelino on 08-25-2022 Cholesterol in LDL [Mass/Vol] 35 mg/dL 0-100 [facility] Comment on above: LDL ATP III CLASSIFI CATIONLDL less than 100 mg/dL OptimalLDL 100-129 mg/dL Near or above optimalLDL 130-159 mg/dL Borderline highLDL 160-189 mg/dL HighLDL greater than 189 mg/dL Very high Cholesterol in VLDL Calc [Ma ss/Vol]Ordered By: Tree Marcelino on 08-25-2022 Cholesterol in VLDL [Mass/Vol] 35 mg/dL [facility] Coagulation Profileon 2022 aPTT Coag (Bld) [Time] 32.0 s Normal 25.1-36.5 [facility] Comment on above: Result Comment: PERF ORMED BY: [place] [address] PATHOLOGIST SYSTEM PLANNING ENGINEER MAX RAMOS M.D. Performed By: #### C BC, PP, LYTES, BUN, CREAT, LIPID #### [address] INR Coag (PPP) [Relative time] 0.9 {INR} Normal [facility] Comment on above: Result Comment: INR [...] BC, PP, LYTES, BUN, CREAT, LIPID #### [address] PT Coag (PPP) [Time] 10.9 s Normal 9.0-12.9 [facility] Comment on above: Performed By: #### C BC, PP, LYTES, BUN, CREAT, LIPID #### [address] Complete Blood Count Auto Di ffon 08-25-2022 Basophils (Bld) [#/Vol] 0.1 10*3/uL Normal 0.0-0.2 [facility] Comment on above: Result Comment: PERF ORMED BY: [place] [address] PATHOLOGIST SYSTEM PLANNING ENGINEER MAX RAMOS M.D. Performed By: #### C BC, PP, LYTES, BUN, CREAT, LIPID #### [place] [address] [place] Basophils/100 WBC (Bld) 1.0 % Normal . [facility] Comment on above: Performed By: #### C BC, PP, LYTES, BUN, CREAT, LIPID #### [address] Eosinophils (Bld) [#/Vol] 0.5 10*3/uL High 0.0-0.45 [facility] Comment on above: Performed By: #### C BC, PP, LYTES, BUN, CREAT, LIPID #### [address] Eosinophils/100 WBC (Bld) 6.3 % Normal . [facility] Comment on above: Performed By: #### C BC, PP, LYTES, BUN, CREAT, LIPID #### [address] Erythrocyte distribution width (RBC) [Ratio] 13.9 % Normal 12.0-14.8 [facility] Comment on above: Performed By: #### C BC, PP, LYTES, BUN, CREAT, LIPID #### [address] Hematocrit (Bld) [Volume fraction] 40.8 % Normal 38.8-50.0 [facility] Comment on above: Performed By: #### C BC, PP, LYTES, BUN, CREAT, LIPID #### [address] Hemoglobin (Bld) [Mass/Vol] 13.8 g/dL Normal 13.0-17.0 [facility] Comment on above: Performed By: #### C BC, PP, LYTES, BUN, CREAT, LIPID #### [address] Lymphocytes (Bld) [#/Vol] 3.4 10*3/uL Normal 1.00-4.8 [facility] Comment on above: Performed By: #### C BC, PP, LYTES, BUN, CREAT, LIPID #### [address] Lymphocytes/100 WBC (Bld) 42.2 % Normal . [facility] Comment on above: Performed By: #### C BC, PP, LYTES, BUN, CREAT, LIPID #### [address] MCH (RBC) [Entitic mass] 32.2 pg Normal 27.5-35.2 [facility] Comment on above: Performed By: #### C BC, PP, LYTES, BUN, CREAT, LIPID #### [address] MCV (RBC) [Entitic vol] 95.4 fL Normal 83.5-101 [facility] Comment on above: Performed By: #### C BC, PP, LYTES, BUN, CREAT, LIPID #### [address] Mean Corpuscular HGB Conc 33.7 g/dL Normal 32.5-35.6 [facility] Comment on above: Performed By: #### C BC, PP, LYTES, BUN, CREAT, LIPID #### [address] Monocytes (Bld) [#/Vol] 0.7 10*3/uL Normal 0.0-0.8 [facility] Comment on above: Performed By: #### C BC, PP, LYTES, BUN, CREAT, LIPID #### [address] Monocytes/100 WBC (Bld) 8.4 % Normal . [facility] Comment on above: Performed By: #### C BC, PP, LYTES, BUN, CREAT, LIPID #### [address] Neutrophils (Bld) [#/Vol] 3.4 10*3/uL Normal 1.8-7.7 [facility] Comment on above: Performed By: #### C BC, PP, LYTES, BUN, CREAT, LIPID #### [address] Neutrophils/100 WBC (Bld) 42.1 % Normal . [facility] Comment on above: Performed By: #### C BC, PP, LYTES, BUN, CREAT, LIPID #### [facility] [address] NRBC% 0.1 /100{WBC} Normal 0-0.5 [facility] Comment on above: Performed By: #### C BC, PP, LYTES, BUN, CREAT, LIPID #### [address] Platelet mean volume (Bld) [Entitic vol] 7.9 fL Normal 6.6-10.1 [facility] Comment on above: Performed By: #### C BC, PP, LYTES, BUN, CREAT, LIPID #### [address] Platelets (Bld) [#/Vol] 206 10*3/uL Normal 150-450 [facility] Comment on above: Performed By: #### C BC, PP, LYTES, BUN, CREAT, LIPID #### [address] RBC (Bld) [#/Vol] 4.28 10*6/uL Normal 3.90-5.60 [facility] Comment on above: Performed By: #### C BC, PP, LYTES, BUN, CREAT, LIPID #### [address] WBC (Bld) [#/Vol] 8.2 10*3/uL Normal 4.1-10.[address] [facility] Comment on above: Performed By: #### C BC, PP, LYTES, BUN, CREAT, LIPID #### [address] Creatinineon 08-25-2022 Creatinine [Mass/Vol] 1.32 mg/dL High 0.70-1.[address] [facility] Comment on above: Performed By: #### C BC, PP, LYTES, BUN, CREAT, LIPID #### [address] GFR/1.73 sq M.predicted MDRD (S/P/Bld) [Vol rate/Area] mL/min/{1.73_m2} [facility] Comment on above: Performed By: #### C BC, PP, LYTES, BUN, CREAT, LIPID #### [facility] [address] [place] [address] Creatinine [Mass/volume] in Serum or PlasmaOrdered By: Tree Marcelino on 08-25-2022 Creatinine [Mass/Vol] 1.32 mg/dL 0.70-1.[address] [facility] ECG 12 lead ECGon 08-25-2022 ECG 12 lead ECG [facility] [address] [place] [address] Electrocardiograph Report Signed Patient: Roxane Bonner MR#: [id number] : 1960 Acct:[id number] Age/Sex: 61 / M ADM Date: 08/25/22 Loc: Room: Type: [facility] Attending Dr: Tree Marcelino DO Ordering Provider: Tree Marcelino DO Date of Service: 08/25/22 ECG/ECG 12 [...] significant change was found Confirmed by JONES HAYNES MD ([id number]) on 08/25/2022 8:48:05 AM Referred By: DENISA MARCELINO Electronically Signed By:JONES HAYNES MD Transcribed By: MUS Signed By Jones Haynes MD 0 08/25/22 0848 [facility] Electrolyteson 08-25-2022 Anion gap [Moles/Vol] 12.8 mmol/L Normal 6.0-15.0 [facility] Comment on above: Performed By: #### C BC, PP, LYTES, BUN, CREAT, LIPID #### [facility] [address] Chloride [Moles/Vol] 106 mmol/L Normal 98-107 [facility] Comment on above: Performed By: #### C BC, PP, LYTES, BUN, CREAT, LIPID #### [facility] [address] CO2 [Moles/Vol] 25.8 mmol/L Normal 21.0-31.0 [facility] Comment on above: Performed By: #### C BC, PP, LYTES, BUN, CREAT, LIPID #### [facility] [address] Potassium [Moles/Vol] 4.6 mmol/L Normal 3.5-5.[address] [facility] Comment on above: Performed By: #### C BC, PP, LYTES, BUN, CREAT, LIPID #### [facility] [address] Sodium [Moles/Vol] 140 mmol/L Normal 136-[address] [facility] Comment on above: Performed By: #### C BC, PP, LYTES, BUN, CREAT, LIPID #### [facility] [address] Eosinophils Auto (Bld) [#/Vo l]Ordered By: Tree Marcelino on 08-25-2022 Eosinophils (Bld) [#/Vol] 0.5 10*3/uL 0.0-0.45 [facility] Eosinophils/100 WBC Auto (Bl d)Ordered By: Tree Marcelino on 08-25-2022 Eosinophils/100 WBC (Bld) 6.3 % . [facility] Erythrocyte distribution wid th Auto (RBC) [Ratio]Ordered By: Tree Marcelino on 08-25-2022 Erythrocyte distribution width (RBC) [Ratio] 13.9 % 12.0-14.8 [facility] Hematocrit Auto (Bld) [Volum e fraction]Ordered By: Tree Marcelino on 08-25-2022 Hematocrit (Bld) [Volume fraction] 40.8 % 38.8-50.0 [facility] Hemoglobin [Mass/volume] in BloodOrdered By: Tree Marcelino on 08-25-2022 Hemoglobin (Bld) [Mass/Vol] 13.8 g/dL 13.0-17.0 [facility] Laboratory - CoagulationOrde red By: Tree Marcelino on 08-25-2022 PT Coag (PPP) [Time] 10.9 s 9.0-12.9 [facility] Leukocytes [#/volume] correc maco for nucleated erythrocytes in Blood by Automated counOrdered By: Tree Marcelino on 08-25-2022 WBC corrected for nucl RBC Auto (Bld) [#/Vol] 8.2 10*3/uL 4.1-10.5 [facility] Lipid Panelon 08-25-2022 Cholesterol [Mass/Vol] 101 mg/dL Low 140-200 [facility] Comment on above: Result Comment: Chol less than 200 mg/dl low risk Chol 201-239 mg/dl borderline risk Chol 240 mg/dl and greater high risk Performed By: #### C BC, PP, LYTES, BUN, CREAT, LIPID #### [facility] [address] Cholesterol in HDL [Mass/Vol] 31 mg/dL Normal 29-71 [facility] Comment on above: Result Comment: HDL CHOL ATP-III CLASSIFICATION Cardiovascular Risk HDL > or equal to 60 mg/dL LOW HDL < 40 mg/dL HIGH Performed By: #### C BC, PP, LYTES, BUN, CREAT, LIPID #### [facility] [address] Cholesterol.total/Chol esterol in HDL [Mass ratio] 3.3 {ratio} Normal <5.0 [facility] Comment on above: Result Comment: PERF ORMED BY: [facility] [address] [place] [address] PATHOLOGIST SYSTEM PLANNING ENGINEER MAX RAMOS M.D. Performed By: #### C BC, PP, LYTES, BUN, CREAT, LIPID #### [facility] [address] LDL Cholesterol,Calculated 35 mg/dL Normal 0-100 [facility] Comment on above: Result Comment: LDL ATP III CLASSIFICATION LDL less than 100 mg/dL Optimal LDL 100-129 mg/dL Near or above optimal LDL 130-159 mg/dL Borderline high LDL 160-189 mg/dL High LDL greater than 189 mg/dL Very high Performed By: #### C BC, PP, LYTES, BUN, CREAT, LIPID #### [facility] [address] Triglyceride w/Reflex 177 mg/dL High 0-[address] [facility] Comment on above: Result Comment: TRIG ATP III CLASSIFICATION TRIG less than 150 mg/dL Normal TRIG 150-199 mg/dL Borderline high TRIG 200-500 mg/dL High TRIG greater than 500 mg/dL Very high Standard traceable to the Center for Disease Conrtrol and Prevention (CDC) test method. Performed By: #### C BC, PP, LYTES, BUN, CREAT, LIPID #### [facility] [address] VLDL CHOLESTEROL 35 mg/dL Normal [facility] Comment on above: Performed By: #### C BC, PP, LYTES, BUN, CREAT, LIPID #### [facility] [address] Lymphocytes Auto (Bld) [#/Vo l]Ordered By: Tree Marcelino on 08-25-2022 Lymphocytes (Bld) [#/Vol] 3.4 10*3/uL 1.00-4.8 [facility] Lymphocytes/100 WBC Auto (Bl d)Ordered By: Tree Marcelino on 08-25-2022 Lymphocytes/100 WBC (Bld) 42.2 % . [facility] MCH Auto (RBC) [Entitic mass ]Ordered By: Tree Marcelino on 08-25-2022 MCH (RBC) [Entitic mass] 32.2 pg 27.5-35.2 [facility] MCHC Auto (RBC) [Mass/Vol]Or dered By: Tree Marcelino on 08-25-2022 MCHC (RBC) [Mass/Vol] 33.7 g/dL 32.5-35.[address] [facility] MCV Auto (RBC) [Entitic vol] Ordered By: Tree Marcelino on 08-25-2022 MCV (RBC) [Entitic vol] 95.4 fL 83.5-101 [facility] Monocytes Auto (Bld) [#/Vol] Ordered By: Tree Marcelino on 08-25-2022 Monocytes (Bld) [#/Vol] 0.7 10*3/uL 0.0-0.8 [facility] Monocytes/100 WBC Auto (Bld) Ordered By: Tree Marcelino on 08-25-2022 Monocytes/100 WBC (Bld) 8.4 % . [facility] Neutrophils Auto (Bld) [#/Vo l]Ordered By: Tree Marcelino on 08-25-2022 Neutrophils (Bld) [#/Vol] 3.4 10*3/uL 1.8-7.7 [facility] Neutrophils/100 WBC Auto (Bl d)Ordered By: Tree Marcelino on 08-25-2022 Neutrophils/100 WBC (Bld) 42.1 % . [facility] No Panel InformationOrdered By: Tree Marcelino on 08-25-2022 Estimated GFR (CKD-EPI) > 60.0 mL/Min [facility] Creatinine Clearance (Chem N/A [facility] Nucleated erythrocytes [Pres ence] in Blood by Automated countOrdered By: Tree Marcelino on 08-25-2022 Nucleated RBC Auto Ql (Bld) 0.1 /100{WBC} 0-0.5 [facility] Platelet mean volume Auto (B ld) [Entitic vol]Ordered By: Tree Marcelino on 08-25-2022 Platelet mean volume (Bld) [Entitic vol] 7.9 fL 6.6-10.1 [facility] Platelet poor plasma interna tional normalized ratio (INR) by coagulation assay (relatOrdered By: Tree Marcelino on 08-25-2022 INR Coag (PPP) [Relative time] 0.9 {INR} [facility] Comment on above: INR Therapeutic Rang [...] Platelets Auto (Bld) [#/Vol] Ordered By: Tree Marcelino on 08-25-2022 Platelets (Bld) [#/Vol] 206 10*3/uL 150-450 [facility] Potassium [Moles/volume] in Serum or PlasmaOrdered By: Tree Marcelino on 08-25-2022 Potassium [Moles/Vol] 4.6 mmol/L 3.5-5.[address] [facility] RBC Auto (Bld) [#/Vol]Ordere d By: Tree Marcelino on 08-25-2022 RBC (Bld) [#/Vol] 4.28 10*6/uL 3.90-5.60 [facility] Serum or plasma anion gap de terminationOrdered By: Tree Marcelino on 08-25-2022 Anion gap [Moles/Vol] 12.8 mmol/L 6.0-15.0 [facility] Serum or plasma high density lipoprotein (HDL) cholesterol measurementOrdered By: Tree Marcelino on 08-25-2022 Cholesterol in HDL [Mass/Vol] 31 mg/dL 29-71 [facility] Comment on above: HDL CHOL ATP-III CLA SSIFICATION Cardiovascular RiskHDL > or equal to 60 mg/dL LOWHDL < 40 mg/dL HIGH Serum or plasma total choles terol/high density lipoprotein (HDL) cholesterol mass ratOrdered By: Tree Marcelino on 08-25-2022 Cholesterol.total/Chol esterol in HDL [Mass ratio] 3.3 {ratio} <5.0 [facility] Sodium [Moles/volume] in Ser um or PlasmaOrdered By: Tree Marcelino on 08-25-2022 Sodium [Moles/Vol] 140 mmol/L 136-[address] [facility] Triglyceride [Mass/volume] i n Serum or PlasmaOrdered By: Tree Marcelino on 08-25-2022 Triglyceride [Mass/Vol] 177 mg/dL 0-149 [facility] Comment on above: TRIG ATP III CLASSIF ICATIONTRIG less than 150 mg/dL NormalTRIG 150-199 mg/dL Borderline highTRIG 200-500 mg/dL High TRIG greater than 500 mg/dL Very highStandard traceable to the Center for Disease Conrtrol and Prevention (CDC) test method. Urea nitrogen [Mass/volume] in Serum or PlasmaOrdered By: Tree Marcelino on 08-25-2022 Urea nitrogen [Mass/Vol] 20 mg/dL 7-25 [facility] WBC Auto (Bld) [#/Vol]Ordere d By: Tree Marcelino on 08-25-2022 WBC (Bld) [#/Vol] 8.2 10*3/uL 4.1-10.[address] [facility] Office Visit (Cardiology)on 08-18-2022 Follow-up visit Diagnoses/Problems Assessed Angina, class III (413.9) (I20.9) 2-3 month history of progressive frequency, duration and intensity of exertional symptoms concerning for crescendo angina. No symptoms at rest. Atherosclerosis of [place] coronary artery without angina pectoris (414.01) (I25.10) March 2012 pRCA PCI/ROS LAD mild diffuse CX mild diffuse September 2021 MPI no ischemia Hypertension (401.9) (I10) optimal in office Hyperlipidemia (272.4) (E78.5) High intensity statin Diabetes mellitus (250.00) (E11.9) On MARIAH/statin Most recent hemoglobin A1c 8.4 Current every day smoker (305.1) (F17.200) 1 pack per day Tried patches and accupuncture Class 1 obesity with body mass index (BMI) of 33.0 to 33.9 in adult (278.00,V85.33) (E66.9,Z68.33) Reviewed the merits of healthy lifestyle choices on overall cardiovascular health. Orders Angina, class III, Atherosclerosis of [place] coronary artery without angina pectoris Start: Isosorbide Mononitrate ER 30 MG Oral Tablet Extended Release 24 Hour; TAKE 1 TABLET DAILY DIRECTED Cardiac Catheterization Lab Procedures; Status:Active; Requested for:18Aug2022; [facility] diagnostic staff to initiate NOH preop orders for left heart cath Start: [...] we can help. You may also call 6-375-VZRN-NOW for free resources and assistance.; Status:Complete; Done: [id number] Tobacco Use Screening; Status:Complete; Done: [id number] Patient Instructions Please bring all medicines, vitamins, [...] contact the office if new symptoms arise. OVERCOILER after procedure Chief Complaint Annual f/u: 'I am getting chest discomfort' ROXANE BONNER is being seen for an annual follow-up of coronary artery disease, dyslipidemia and hypertension. Patient presents to the office ambulatory with steady gait. Last evaluated in clinic Dr. Munoz August 2021. Patient has followed routinely with Dr. Munoz since 2011 due to coronary artery disease [...] to 1:1000 (more content not included)... Normal [facility] Tobacco Screening.on 023 Adult depression screening assessment No [facility] DO Work Phone: Tobacco use status CPHS a) Yes [facility] DO Work Phone: Tobacco Screening. Yes [facility] 250 DO Work Phone: CBC AUTO DIFFon 04-19-2022 BASO # 0.1 103/ul Normal 0.0-0.1 [facility] Comment on above: Performed By: #### C BC #### [facility] [address] [place] [address] Dr. Amarjit Sanchez Basophils/100 WBC (Bld) 0.7 % Normal 0.2-2.0 [facility] Comment on above: Performed By: #### C BC #### [facility] [address] [place] [address] Dr. Amarjit Sanchez EO # 0.3 103/ul Normal 0.0-0.7 [facility] Comment on above: Performed By: #### C BC #### [facility] [address] [place] [address] Dr. Amarjit Sanchez Eosinophils/100 WBC (Bld) 2.4 % Normal 0.9-7.0 [facility] Comment on above: Performed By: #### C BC #### [facility] [address] [place] [address] Dr. Amarjit Sanchez Erythrocyte distribution width (RBC) [Ratio] 12.9 % Normal 11.0-15.0 [facility] Comment on above: Performed By: #### C BC #### [facility] [address] [place] [address] Dr. Amarjit Sanchez Hematocrit (Bld) [Volume fraction] 43.5 % Normal 42.0-54.0 [facility] Comment on above: Performed By: #### C BC #### [facility] [address] [place] [address] Dr. Amarjit Sanchez Hemoglobin (Bld) [Mass/Vol] 14.8 g/dL Normal 14.0-18.0 [facility] Comment on above: Performed By: #### C BC #### [facility] [address] [place] [address] Dr. Amarjit Sanchez IG # 0.23 10e3/ul Critically high 0.00-0.03 [facility] Comment on above: Performed By: #### C BC #### [facility] [address] [place] [address] Dr. Amarjit Sanchez IG % 1.7 % Critically high 0.0-0.5 [facility] Comment on above: Performed By: #### C BC #### [facility] [address] [place] [address] Dr. Amarjit Sanchez LYMPH # 4.5 103/ul Critically high 1.2-3.8 [facility] Comment on above: Performed By: #### C BC #### [facility] [address] [place] [address] Dr. Amarjit Sanchez Lymphocytes/100 WBC (Bld) 34.0 % Normal 20.5-60.0 [facility] Comment on above: Performed By: #### C BC #### [facility] [address] [place] [address] Dr. Amarjit Sanchez MANUAL DIFF REQ NO Normal [facility] Comment on above: Performed By: #### C BC #### [facility] [address] [place] [address] Dr. Amarjit Sanchez MCH (RBC) [Entitic mass] 31.7 pg Normal 25.9-34.0 [facility] Comment on above: Performed By: #### C BC #### [facility] [address] [place] [address] Dr. Amarjit Sanchez MCHC (RBC) [Mass/Vol] 34.0 g/dL Normal 29.9-35.2 [facility] Comment on above: Performed By: #### C BC #### [facility] [address] [place] [address] Dr. Amarjit Sanchez MCV (RBC) [Entitic vol] 93.1 fL Normal 80.0-94.0 [facility] Comment on above: Performed By: #### C BC #### [facility] [address] [place] [address] Dr. Amarjit Sanchez MONO # 0.8 103/ul Normal 0.3-0.8 [facility] Comment on above: Performed By: #### C BC #### [facility] [address] [place] [address] Dr. Amarjit Sanchez Monocytes/100 WBC (Bld) 5.9 % Normal 1.7-12.0 [facility] Comment on above: Performed By: #### C BC #### [facility] [address] [place] [address] Dr. Amarjit Sanchez NEUT # 7.4 103/ul Critically high 1.4-6.5 [facility] Comment on above: Performed By: #### C BC #### [facility] [address] [place] [address] Dr. Amarjit Sanchez Neutrophils/100 WBC (Bld) 55.3 % Normal 43.0-75.0 [facility] Comment on above: Performed By: #### C BC #### [facility] [address] [place] [address] Dr. Amarjit Sanchez Platelet mean volume (Bld) [Entitic vol] 9.3 fL Critically low 9.5-13.5 [facility] Comment on above: Performed By: #### C BC #### [facility] [address] [place] [address] Dr. Amarjit Sanchez PLT 222 103/ul Normal 150-450 [facility] Comment on above: Performed By: #### C BC #### [facility] [address] [place] [address] Dr. Amarjit Sanchez RBC 4.67 106/ul Critically low 4.70-6.10 [facility] Comment on above: Performed By: #### C BC #### [facility] [address] [place] [address] Dr. Amarjit Sanchez WBC 13.3 103/ul Critically high 4.0-11.0 [facility] Comment on above: Performed By: #### C BC #### [facility] [address] [place] [address] Dr. Amarjit Sanchez GLYCOHEMOGLOBIN A1Con 2021 ADA RECOMMENDATION SEE BELOW Normal [facility] Comment on above: Result Comment: ADA RECOMMENDED LIMIT 4.0 - 6.0 ADA THERAPEUTIC TARGET < 7.0 ACTION SUGGESTED > 7.0 Performed By: #### A 1C #### [facility] [address] [place] [address] Dr. Amarjit Sanchez Glucose [Mass/Vol] 194 mg/dL Normal [facility] Comment on above: Performed By: #### A 1C #### [facility] [address] [place] [address] Dr. Amarjit Sanchez HbA1c (Bld) [Mass fraction] 8.4 % Critically high 4.5-6.2 [facility] Comment on above: Performed By: #### A 1C #### [facility] [address] [place] [address] Dr. Amarjit Sanchez MICROALBUMIN, RAND URon 04-08 mALB <1.3 Normal <=30.0 [facility] Comment on above: Performed By: #### M ALBR #### [facility] [address] [place] [address] Dr. Amarjit Sanchez PROF 14(COMP METB)on 022 Albumin [Mass/Vol] 4.0 g/dL Normal 3.4-5.0 [facility] Comment on above: Performed By: #### C MP #### [facility] [address] [place] [address] Dr. Amarjit Sanchez Albumin/Globulin [Mass ratio] 1.2 {ratio} Normal [facility] Comment on above: Performed By: #### C MP #### [facility] [address] [place] [address] Dr. Amarjit Sanchez ALP [Catalytic activity/Vol] 74 U/L Normal 46-116 [facility] Comment on above: Performed By: #### C MP #### [facility] [address] [place] [address] Dr. Amarjit Sanchez ALT [Catalytic activity/Vol] 56 U/L Normal 16-63 [facility] Comment on above: Performed By: #### C MP #### [facility] [address] [place] [address] Dr. Amarjit Sanchez Anion gap [Moles/Vol] 15.5 mmol/L Normal [facility] Comment on above: Performed By: #### C MP #### [facility] [address] [place] [address] Dr. Amarjit Sanchez AST [Catalytic activity/Vol] 30 U/L Normal 15-37 [facility] Comment on above: Performed By: #### C MP #### [facility] [address] [place] [address] Dr. Amarjit Sanchez Bilirubin [Mass/Vol] 0.4 mg/dL Normal 0.2-1.0 [facility] Comment on above: Performed By: #### C MP #### [facility] [address] [place] [address] Dr. Amarjit Sanchez Calcium [Mass/Vol] 8.8 mg/dL Normal 8.5-10.1 [facility] Comment on above: Performed By: #### C MP #### [facility] [address] [place] [address] Dr. Amarjit Sanchez Chloride [Moles/Vol] 103 mmol/L Normal 98-107 [facility] Comment on above: Performed By: #### C MP #### [facility] [address] [place] [address] Dr. Amarjit Sanchez CO2 [Moles/Vol] 24.4 mmol/L Normal 21.0-32.0 [facility] Comment on above: Performed By: #### C MP #### [facility] [address] [place] [address] Dr. Amarjit Sanchez Creatinine [Mass/Vol] 1.11 mg/dL Normal 0.70-1.30 [facility] Comment on above: Performed By: #### C MP #### [facility] [address] [place] [address] Dr. Amarjit Sanchez EGFR-AF NORTH KOREAN >60 Normal >=60 [facility] Comment on above: Performed By: #### C MP #### [facility] [address] [place] [address] Dr. Amarjit Sanchez EGFR-NON AF [place]OREAN >60 Normal >=60 [facility] Comment on above: Performed By: #### C MP #### [facility] [address] [place] [address] Dr. Amarjit Sanchez Globulin (S) [Mass/Vol] 3.3 g/dL Normal [facility] Comment on above: Performed By: #### C MP #### [facility] [address] [place] [address] Dr. Amarjit Sanchez Glucose [Mass/Vol] 113 mg/dL Critically high 74-[address] [facility] Comment on above: Performed By: #### C MP #### [facility] [address] [place] [address] Dr. Amarjit Sanchez Potassium [Moles/Vol] 4.9 mmol/L Normal 3.5-5.1 [facility] Comment on above: Performed By: #### C MP #### [facility] [address] [place] [address] Dr. Amarjit Sanchez Protein [Mass/Vol] 7.3 g/dL Normal 6.4-8.2 [facility] Comment on above: Performed By: #### C MP #### [facility] [address] [place] [address] Dr. Amarjit Sanchez Sodium [Moles/Vol] 138 mmol/L Normal 136-145 [facility] Comment on above: Performed By: #### C MP #### [facility] [address] [place], [place] [address] Dr. Amarjit Sanchez Urea nitrogen [Mass/Vol] 20.0 mg/dL Critically high 7.0-18.0 [facility] Comment on above: Performed By: #### C MP #### [facility] [address] [place], [place] [address] Dr. Amarjit Sanchez Urea nitrogen/Creatinine [Mass ratio] 18.0 mg/mg Normal [facility] Comment on above: Performed By: #### C MP #### [facility] [address] [place], [place] [address] Dr. Amarjit Sanchez No Panel Informationon 09-14 -[facility]-Sandu tracy 250 DO Work Phone: STR cardiac stress/lexiscano n 09-14-2021 STR cardiac stress/lexiscan [facility] [place] [address] Cardiac Stress Test Signed Patient: Roxane Bonner MR#: [id number] : 1960 Acct:[id number] Age/Sex: 60 / M ADM Date: 09/07/21 Loc: Room: Type: [facility] Attending Dr: Bridget Munoz DO Copies to: Mildred Palma MD, [facility] Bridget Munoz DO Ordering Provider: Bridget Munoz DO Date of Service: 09/07/21 STR/STR cardiac stress/lexiscan: see order ORDERED BY: Bridget Munoz DO 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 [...] By: NTS 09/15/21 1149 Dictated By: Mildred Palma MD, [facility] 09/14/21 1418 Signed By: 09/15/21 1218 [facility] NM laura perf SPECT rest stron 09-13-2021 NM laura perf SPECT rest str [facility] Main [address] [address] Nuclear Medicine Report Signed Patient: Roxane Bonner MR#: [id number] : 1960 Acct:[id number] Age/Sex: 60 / M ADM Date: 09/07/21 Loc: Room: Type: [facility] Attending Dr: Bridget Munoz DO Ordering Provider: Bridget Munoz DO Date of Service: 09/07/21 NM/NM laura perf SPECT rest str: [facility] HYPERTENSION Copies to: DO Bridget Stephen DO Mourhaf A Traboulssi, MD REFERRING PHYSICIAN: Bridget Munoz DO REASON FOR STUDY: Coronary artery disease [...] available for comparison. Transcribed By: NTS 09/13/21 1666 Dictated By: Jones Haynes MD 09/13/21 1112 Signed By: 09/14/21 1132 [facility] No Panel Informationon 09-13 Normal -[facility]-Sandu tracy 250 DO Work Phone: Tobacco Screening.on 022 Adult depression screening assessment No -[facility] 250 DO Work Phone: Tobacco use status CPHS a) Yes [facility]-Sandu tracy 250 DO Work Phone: Tobacco Screening. Yes [facility]-Sandu tracy 250 DO Work Phone: CBC AUTO DIFFon 07-30-2021 BASO # 0.1 103/ul Normal 0.0-0.1 [facility] Comment on above: Performed By: #### C BC #### [facility] [address] [place] [address] Dr. Amarjit Sanchez Basophils/100 WBC (Bld) 0.8 % Normal 0.2-2.0 [facility] Comment on above: Performed By: #### C BC #### [facility] [address] [place] [address] Dr. Amarjit Sanchez EO # 0.5 103/ul Normal 0.0-0.7 [facility] Comment on above: Performed By: #### C BC #### [facility] [address] [place] [address] Dr. Amarjit Sanchez Eosinophils/100 WBC (Bld) 6.2 % Normal 0.9-7.0 [facility] Comment on above: Performed By: #### C BC #### [facility] [address] [place] [address] Dr. Amarjit Sanchez Erythrocyte distribution width (RBC) [Ratio] 12.9 % Normal 11.0-15.0 [facility] Comment on above: Performed By: #### C BC #### [facility] [address] [place] [address] Dr. Amarjit Sanchez Hematocrit (Bld) [Volume fraction] 43.6 % Normal 42.0-54.0 [facility] Comment on above: Performed By: #### C BC #### [facility] [address] [place] [address] Dr. Amarjit Sanchez Hemoglobin (Bld) [Mass/Vol] 14.6 g/dL Normal 14.0-18.0 [facility] Comment on above: Performed By: #### C BC #### [facility] [address] [place] [address] Dr. Amarjit Sanchez IG # 0.04 10e3/ul Critically high 0.00-0.03 [facility] Comment on above: Performed By: #### C BC #### [facility] [address] [place] [address] Dr. Amarjit Sanchez IG % 0.5 % Normal 0.0-0.5 [facility] Comment on above: Performed By: #### C BC #### [facility] [address] [place] [address] Dr. Amarjit Sanchez LYMPH # 4.2 103/ul Critically high 1.2-3.8 [facility] Comment on above: Performed By: #### C BC #### [facility] [address] [place] [address] Dr. Amarjit Sanchez Lymphocytes/100 WBC (Bld) 51.2 % Normal 20.5-60.0 [facility] Comment on above: Performed By: #### C BC #### [facility] [address] [place] [address] Dr. Amarjit Sanchez MANUAL DIFF REQ NO Normal [facility] Comment on above: Performed By: #### C BC #### [facility] [address] [place] [address] Dr. Amarijt Sanchez MCH (RBC) [Entitic mass] 32.4 pg Normal 25.9-34.0 [facility] Comment on above: Performed By: #### C BC #### [facility] [address] [place] [address] Dr. Amarjit Sanchez MCHC (RBC) [Mass/Vol] 33.5 g/dL Normal 29.9-35.2 [facility] Comment on above: Performed By: #### C BC #### [facility] [address] [place] [address] Dr. Amarjit Sanchez MCV (RBC) [Entitic vol] 96.9 fL Critically high 80.0-94.0 [facility] Comment on above: Performed By: #### C BC #### [facility] [address] [place] [address] Dr. Amarjit Sanchez MONO # 0.7 103/ul Normal 0.3-0.8 [facility] Comment on above: Performed By: #### C BC #### [facility] [address] [place] [address] Dr. Amarjit Sanchez Monocytes/100 WBC (Bld) 8.5 % Normal 1.7-12.0 [facility] Comment on above: Performed By: #### C BC #### [facility] [address] [place] [address] Dr. Amarjit Sanchez NEUT # 2.7 103/ul Normal 1.4-6.5 [facility] Comment on above: Performed By: #### C BC #### [facility] [address] [place] [address] Dr. Amarjit Sanchez Neutrophils/100 WBC (Bld) 32.8 % Critically low 43.0-75.0 [facility] Comment on above: Performed By: #### C BC #### [facility] [address] [place] [address] Dr. Amarjit Sanchez Platelet mean volume (Bld) [Entitic vol] 10.1 fL Normal 9.5-13.5 [facility] Comment on above: Performed By: #### C BC #### [facility] [address] [place] [address] Dr. Amarjit Sanchez PLT 222 103/ul Normal 150-450 [facility] Comment on above: Performed By: #### C BC #### [facility] [address] [place] [address] Dr. Amarjit Sanchez RBC 4.50 106/ul Critically low 4.70-6.10 [facility] Comment on above: Performed By: #### C BC #### [facility] [address] [place] [address] Dr. Amarjit Sanchez WBC 8.2 103/ul Normal 4.0-11.0 [facility] Comment on above: Performed By: #### C BC #### [facility] [address] [place] [address] Dr. Amarjit Sanchez GLYCOHEMOGLOBIN A1Con 2021 ADA RECOMMENDATION ADA THERAPEUTIC TARG ET 6.0 - 7.0 ACTION SUGGESTED > 7.[address] [facility] Comment on above: Performed By: #### A 1C #### [facility] [address] [place] [address] Dr. Amarjit Sanchez Glucose [Mass/Vol] 197 mg/dL Normal [facility] Comment on above: Performed By: #### A 1C #### [facility] [address] [place] [address] Dr. Amarjit Sanchez HbA1c (Bld) [Mass fraction] 8.5 % Critically high <=6.0 [facility] Comment on above: Performed By: #### A 1C #### [facility] [address] [place] [address] Dr. Amarjit Sanchez MICROALBUMIN, RAND URon 07-08 mALB <1.3 Normal <=30.0 [facility] Comment on above: Performed By: #### M ALBR #### [facility] [address] [place] [address] Dr. Amarjit Sanchez PROF 14(COMP METB)on 022 Albumin [Mass/Vol] 4.3 g/dL Normal 3.4-5.0 [facility] Comment on above: Performed By: #### C MP #### [facility] [address] [place] [address] Dr. Amarjit Sanchez Albumin/Globulin [Mass ratio] 1.3 {ratio} Normal [facility] Comment on above: Performed By: #### C MP #### [facility] [address] [place] [address] Dr. Amarjit Sanchez ALP [Catalytic activity/Vol] 86 U/L Normal 46-116 [facility] Comment on above: Performed By: #### C MP #### [facility] [address] [place] [address] Dr. Amarjit Sanchez ALT [Catalytic activity/Vol] 54 U/L Normal 16-63 [facility] Comment on above: Performed By: #### C MP #### [facility] [address] [place] [address] Dr. Amarjit Sanchez Anion gap [Moles/Vol] 12.2 mmol/L Normal [facility] Comment on above: Performed By: #### C MP #### [facility] [address] [place] [address] Dr. Amarjit Sanchez AST [Catalytic activity/Vol] 33 U/L Normal 15-37 [facility] Comment on above: Performed By: #### C MP #### [facility] [address] [place] [address] Dr. Amarjit Sanchez Bilirubin [Mass/Vol] 0.3 mg/dL Normal 0.2-1.3 [facility] Comment on above: Performed By: #### C MP #### [facility] [address] [place] [address] Dr. Amarjit Sanchez Calcium [Mass/Vol] 9.3 mg/dL Normal 8.5-10.1 [facility] Comment on above: Performed By: #### C MP #### [facility] [address] [place] [address] Dr. Amarjit Sanchez Chloride [Moles/Vol] 103 mmol/L Normal 98-107 [facility] Comment on above: Performed By: #### C MP #### [facility] [address] [place] [address] Dr. Amarjit Sanchez CO2 [Moles/Vol] 28.3 mmol/L Normal 22.0-30.0 [facility] Comment on above: Performed By: #### C MP #### [facility] [address] [place] [address] Dr. Amarjit Sanchez Creatinine [Mass/Vol] 1.17 mg/dL Normal 0.66-1.25 [facility] Comment on above: Performed By: #### C MP #### [facility] [address] [place] [address] Dr. Amarjit Sanchez EGFR-AF [place]ORE[place] >60 Normal >=60 [facility] Comment on above: Performed By: #### C MP #### [facility] [address] [place] [address] Dr. Amarjit Sanchez EGFR-NON AF [place]ORE[place] >60 Normal >=60 [facility] Comment on above: Performed By: #### C MP #### [facility] [address] [place] [address] Dr. Amarjit Sanchez Globulin (S) [Mass/Vol] 3.3 g/dL Normal [facility] Comment on above: Performed By: #### C MP #### [facility] [address] [place] [address] [address] Amarjit Sanchez Glucose [Mass/Vol] 118 mg/dL Critically high 74-106 [facility] Comment on above: Performed By: #### C MP #### [facility] [address] [place] [address] [address] Amarjit Sanchez Potassium [Moles/Vol] 4.5 mmol/L Normal 3.4-5.0 [facility] Comment on above: Performed By: #### C MP #### [facility] [address] [place] [address] [address] Amarjit Sanchez Protein [Mass/Vol] 7.6 g/dL Normal 6.1-8.2 [facility] Comment on above: Performed By: #### C MP #### [facility] [address] [place] [address] [address] Amarjit Sanchez Sodium [Moles/Vol] 139 mmol/L Normal 137-145 [facility] Comment on above: Performed By: #### C MP #### [facility] [address] [place] [address] [address] Amarjit Sanchez Urea nitrogen [Mass/Vol] 19.0 mg/dL Critically high 7.0-18.0 [facility] Comment on above: Performed By: #### C MP #### [facility] [address] [place] [address] [address] Amarjit Sanchez Urea nitrogen/Creatinine [Mass ratio] 16.2 mg/mg Normal [facility] Comment on above: Performed By: #### C MP #### [facility] [address] [place] [address] [address] Amarjit Sanchez US RENAL COMPLETEon 10-29-19 US RENAL COMPLETE EXAMINATION: ULTRASOUND OF THE KIDNEYS [...] Iggy Valero MD 10/28/20 Final result Normal [facility] US RENAL COMPLETEOrdered By: Pratik Miranda on 10-28-2020 Left renal cortical cysts are noted with nonobstructing stones as well. Otherwise unremarkable sonographic appearance of the kidneys. Unremarkable ultrasound of the bladder. [employer] Phone: EXAMINATION: ULTRASO UND OF THE KIDNEYS [...] focal urinary bladder wall abnormality was appreciated. [employer] Phone: [place], [facility] Incoming Radiant Results From [employer] - 10/28/2020 9:54 PM EDT EXAMINATION: ULTRASOUND [...] the kidneys. Unremarkable ultrasound of the bladder. [place] [employer] Work Phone: [facility] Phone: DEVONTE Screen w/reflexon 2020 DEVONTE Screen Negative Normal NEG [facility] Comment on above: Performed By: #### F KLLC, C3, C4, ANAX, PE, IFX, PHEP #### [employer] [address] [place] [address] [employer] Inspector: Rohan Mitchell MD #### REJI BMP, URI #### [facility] [address] [facility] [place] [address] [employer] Inspector: William Ayala DO Anti-dsDNA <0.5 Normal <10.0 [facility] Comment on above: Result Comment: Reference Range: <10.0 Negative 10.0-15.0 Equivocal >15.0 Positive Performed By: #### F KLLC, C3, C4, ANAX, PE, IFX, PHEP #### [employer] [employer] [address] [place] [address] [employer] Inspector: Rohan Mitchell MD #### CDP, BMP, URI #### [facility] [address] [place] [address] [employer] Inspector: William Ayala DO LOIS Screen 0.2 U/mL Normal <0.7 [facility] Comment on above: Result Comment: Reference Range: <0.7 Negative 0.7-1.0 Equivocal >1.0 Positive LOIS Screen includes U1RNP,RNP70,Sm,Ro(SS-A),La(SS-B),CENP,Scl-70,Kassi-1 Performed By: #### F KLLC, C3, C4, ANAX, PE, IFX, PHEP #### [address] [address] [employer] Inspector: Rohan Mitchell MD #### BRICE MENDOZA, URI #### [facility] [address] [place] [address] [employer] Inspector: William Ayala DO Immunofixation,Bloodon 10-24 IFX - Interpret. IMMUNOFIXATION IS NEGATIVE FOR MONOCLONAL IMMUNOGLOBULIN. Normal [facility] Comment on above: Performed By: #### F KLLC, C3, C4, ANAX, PE, IFX, PHEP #### [address] [address] [employer] Inspector: Rohan Mitchell MD #### BRICE MENDOZA, URI #### [facility] [address] [place] [address] [employer] Inspector: William Ayala DO Pathologist Review: ELECTRONICALLY EDMUNDO NEWBERRY M.D. [facility] Comment on above: Performed By: #### F KLLC, C3, C4, ANAX, PE, IFX, PHEP #### [address] [address] [employer] Inspector: Rohan Mitchell MD #### CDP, BMP, URI #### [facility] [address] [place] [address] [employer] Inspector: William Ayala DO Prot. Electroph, Blon 2020 Pathologist Review: ELECTRONICALLY DEMUNDO NEWBERRY M.D. Normal [facility] Comment on above: Performed By: #### F KLLC, C3, C4, ANAX, PE, IFX, PHEP #### [address] [address] [employer] Inspector: Rohan Mitchell MD #### REJI, BRICE, URI #### [facility] [address] [place] [address] [employer] Inspector: William Ayala DO Prot. Elect-Interp NORMAL ELECTROPHORET IC PATTERN Normal [facility] Comment on above: Result Comment: GAMM AGLOBULINS ARE LOW NORMAL. IMMUNOFIXATION IS NEGATIVE FOR MONOCLONAL IMMUNOGLOBULIN. Performed By: #### F KLLC, C3, C4, ANAX, PE, IFX, PHEP #### [address] [address] [employer] Inspector: Rohan Mitchell MD #### REJI, BRICE, URI #### [facility] [address] [place] [address] [employer] Inspector: William Ayala DO Total Prot. Sum 6.5 g/dL Normal 6.3-8.2 [facility] Comment on above: Performed By: #### F KLLC, C3, C4, ANAX, PE, IFX, PHEP #### [address] [address] [employer] Inspector: Rohan Mitchell MD #### REJI, BMP, URI #### [facility] [address] [place] [address] [employer] Inspector: William Ayala DO Total Prot. Sum,% 101 % Normal 98-102 [facility] Comment on above: Performed By: #### F KLLC, C3, C4, ANAX, PE, IFX, PHEP #### [address] [address] [employer] Inspector: Rohan Mitchell MD #### REJI, BRICE, URI #### [facility] [address] [place] [address] [employer] Inspector: William Ayala DO Albumin [Mass/Vol] 4.6 g/dL Normal 3.2-5.2 [facility] Comment on above: Performed By: #### F KLLC, C3, C4, ANAX, PE, IFX, PHEP #### [address] [address] [employer] Inspector: Rohan Mitchell MD #### REJI, BRICE, URI #### [facility] [address] [place] [address] [employer] Inspector: William Ayala DO Albumin, % 70 % High 45-65 [facility] Comment on above: Performed By: #### F KLLC, C3, C4, ANAX, PE, IFX, PHEP #### [address] [address] [employer] Inspector: Rohan Mitchell MD #### REJI, BRICE, URI #### [facility] [address] [place] [address] [employer] Inspector: William Ayala DO Zvukm-6-eqpcipbkg 0.1 g/dL Normal 0.1-0.4 [facility] Comment on above: Performed By: #### F KLLC, C3, C4, ANAX, PE, IFX, PHEP #### [address] [address] [employer] Inspector: Rohan Mitchell MD #### REJI, BRICE, URI #### [facility] [address] [place] [address] [employer] Inspector: William Ayala DO Lowgp-9-thekaokba,% 2 % Low 3-6 [facility] Comment on above: Performed By: #### F KLLC, C3, C4, ANAX, PE, IFX, PHEP #### [address] [address] [employer] Inspector: Rohan Mitchell MD #### CDP, BMP, URI #### [facility] [address] [place] [address] [employer] Inspector: William Ayala DO Sgiam-0-zdtfatven 0.6 g/dL Normal 0.5-0.9 [facility] Comment on above: Performed By: #### F KLLC, C3, C4, ANAX, PE, IFX, PHEP #### [address] [address] [employer] Inspector: Rohan Mitchell MD #### CDP, BMP, URI #### [facility] [address] [place] [address] [employer] Inspector: William Ayala DO Ueixx-5-bguhmftxv,% 10 % Normal 6-13 [facility] Comment on above: Performed By: #### F KLLC, C3, C4, ANAX, PE, IFX, PHEP #### [address] [address] [employer] Inspector: Rohan Mitchell MD #### CDP, BMP, URI #### [facility] [place] [address] [employer] Inspector: William Ayala DO Beta-globulins 0.7 g/dL Normal 0.5-1.1 [facility] Comment on above: Performed By: #### F KLLC, C3, C4, ANAX, PE, IFX, PHEP #### [address] [address] [employer] Inspector: Rohan Mitchell MD #### CDP, BMP, URI #### [facility] [address] [place] [address] [employer] Gaming Inspector: William Ayala DO Beta-globulins,% 11 % Normal 11-19 [facility] Comment on above: Performed By: #### F KLLC, C3, C4, ANAX, PE, IFX, PHEP #### [address] [address] [employer] Inspector: Rohan Mitchell MD #### REJI, BMP, URI #### [facility] [address] [place] [address] Casino Gaming Inspector: William Ayala DO Gamma-globulins 0.5 g/dL Normal 0.5-1.5 [facility] Comment on above: Performed By: #### F KLLC, C3, C4, ANAX, PE, IFX, PHEP #### [address] [address] Casino Gaming Inspector: Rohan Mitchell MD #### REJI, BMP, URI #### [facility] [address] [place] [address] Casino Gaming Inspector: William Ayala DO Gamma-globulins,% 8 % Low 9-20 [facility] Comment on above: Performed By: #### F KLLC, C3, C4, ANAX, PE, IFX, PHEP #### [address] [address] Casino Gaming Inspector: Rohan Mitchell MD #### CDP, BMP, URI #### [facility] [address] [place] [address] [employer] Gaming Inspector: William Ayala DO Prot. Electroph, Uron 2020 Pathologist Review: ELECTRONICALLY EDMUNDO NEWBERRY M.D. Normal [facility] Comment on above: Performed By: #### F KLLC, C3, C4, ANAX, PE, IFX, PHEP #### [facility] [address] [place] [address] [employer] Gaming Inspector: Rohan Mitchell MD #### BRICE MENDOZA, URI #### [facility] [address] [place] [address] [employer] Gaming Inspector: William Ayala DO Ur.-Prot.Elect-Inter NORMAL ELECTROPHORE TIC PATTERN Normal [facility] Comment on above: Performed By: #### F KLLC, C3, C4, ANAX, PE, IFX, PHEP #### [address] [place] [address] Casino Gaming Inspector: Rohan Mitchell MD #### REJI, BMP, URI #### [facility] [address] [place] [address] [employer] Gaming Inspector: William Ayala DO Basic Metabolic PanelOrdered By: Pratik Miranda on 10-23-2020 Anion gap [Moles/Vol] 9 mmol/L 9 - 17 mmol/L [employer] Phone: Calcium [Mass/Vol] 9.4 mg/dL 8.6 - 10. 4 mg/dL [employer] Phone: Chloride [Moles/Vol] 102 mmol/L 98 - 10 7 mmol/L [employer] Phone: CO2 [Moles/Vol] 27 mmol/L 20 - 31 mmol/L [employer] Phone: Creatinine [Mass/Vol] 1.13 mg/dL 0.70 - 1.20 mg/dL [employer] Phone: GFR >60 >60 mL/min [employer] Phone: GFR Non- >60 >60 mL/min [employer] Phone: GFR/1.73 sq M.predicted MDRD (S/P/Bld) [Vol rate/Area] [employer] Phone: Comment on above: Average GFR for 60-6 9 years old: 85 mL/min/1.73sq m Chronic Kidney Disease: <60 mL/min/1.73sq m Kidney failure: <15 mL/min/1.73sq m eGFR calculated using average adult body mass. Additional eGFR calculator available at: http://www.[employer]/multiple_crcl_2012.htm GFR/1.73 sq M.predicted MDRD (S/P/Bld) [Vol rate/Area] NOT REPORTED [facility] Phone: Glucose [Mass/Vol] 234 mg/dL High 70 - 99 mg/dL [employer] Phone: Interpretation and review of laboratory results Abnormal [employer] Phone: Potassium [Moles/Vol] 5.3 mmol/L 3.7 - 5.3 mmol/L [employer] Phone: Sodium [Moles/Vol] 138 mmol/L 135 - 144 mmol/L [employer] Phone: Urea nitrogen (BldV) [Mass/Vol] 14 mg/dL 8 - 23 mg/dL [employer] Phone: Urea nitrogen/Creatinine (Bld) [Mass ratio] NOT REPORTED [employer] Phone: Basic Metabolic Profon 10-23 (cont.) Normal [facility] Comment on above: Result Comment: Aver age GFR for 60-69 years old: 85 mL/min/1.73sq m Chronic Kidney Disease: <60 mL/min/1.73sq m Kidney failure: <15 mL/min/1.73sq m eGFR calculated using average adult body mass. Additional eGFR calculator available at: http://www.[employer].com/multiple_crcl_2012.htm Performed By: #### F KLLC, C3, C4, ANAX, PE, IFX, PHEP #### [address] [address] Casino Gaming Inspector: Rohan Mitchell MD #### REJI, BRICE, URI #### [facility] [place] [address] Casino Gaming Inspector: William Ayala DO Anion gap [Moles/Vol] 9 mmol/L Normal 9-17 [facility] Comment on above: Performed By: #### F KLLC, C3, C4, ANAX, PE, IFX, PHEP #### [address] [address] [employer] Gaming Inspector: Rohan Mitchell MD #### REJI, BRICE, URI #### [facility] [place] [address] Casino Gaming Inspector: William Ayala DO Calcium [Mass/Vol] 9.4 mg/dL Normal 8.6-10.4 [facility] Comment on above: Performed By: #### F KLLC, C3, C4, ANAX, PE, IFX, PHEP #### [address] [address] Casino Gaming Inspector: Rohan Mitchell MD #### REJI, BRICE, URI #### [facility] [place] [address] Casino Gaming Inspector: William Ayala DO Chloride [Moles/Vol] 102 mmol/L Normal 98-107 [facility] Comment on above: Performed By: #### F KLLC, C3, C4, ANAX, PE, IFX, PHEP #### [address] [address] Casino Gaming Inspector: Rohan Mitchell MD #### REJI, BRICE, URI #### [facility] [address] [place] [address] Casino Gaming Inspector: William Ayala DO CO2 [Moles/Vol] 27 mmol/L Normal 20-31 [facility] Comment on above: Performed By: #### F KLLC, C3, C4, ANAX, PE, IFX, PHEP #### [address] [address] Casino Gaming Inspector: Rohan Mitchell MD #### BRICE MENDOZA, URI #### [facility] [address] [place] [address] Casino Gaming Inspector: William Ayala DO Creatinine [Mass/Vol] 1.13 mg/dL Normal 0.70-1.20 [facility] Comment on above: Performed By: #### F KLLC, C3, C4, ANAX, PE, IFX, PHEP #### [address] [address] Casino Gaming Inspector: Rohan Mitchell MD #### REJI, BRICE, URI #### [facility] [address] [place] [address] Casino Gaming Inspector: William Ayala DO GFR, Amer >60 Normal >60 [facility] Comment on above: Performed By: #### F KLLC, C3, C4, ANAX, PE, IFX, PHEP #### [address] [address] Casino Gaming Inspector: Rohan Mitchell MD #### REJI, BMP, URI #### [facility] [address] [place] [address] Casino Gaming Inspector: William Ayala DO GFR,non Amer >60 Normal >60 [facility] Comment on above: Performed By: #### F KLLC, C3, C4, ANAX, PE, IFX, PHEP #### [address] [address] Casino Gaming Inspector: Rohan Mitchell MD #### CDP, BMP, URI #### [facility] [address] [place] [address] Casino Gaming Inspector: William Ayala DO Glucose [Mass/Vol] 234 mg/dL High 70-99 [facility] Comment on above: Performed By: #### F KLLC, C3, C4, ANAX, PE, IFX, PHEP #### [address] [address] Casino Gaming Inspector: Rohan Mitchell MD #### REJI, BMP, URI #### [facility] [address] [place] [address] Casino Gaming Inspector: William Ayala DO Potassium [Moles/Vol] 5.3 mmol/L Normal 3.7-5.3 [facility] Comment on above: Performed By: #### F KLLC, C3, C4, ANAX, PE, IFX, PHEP #### [address] [address] Casino Gaming Inspector: Rohan Mitchell MD #### CDP, BMP, URI #### [facility] [address] [place] [address] Casino Gaming Inspector: William Ayala DO Sodium [Moles/Vol] 138 mmol/L Normal 135-144 [facility] Comment on above: Performed By: #### F KLLC, C3, C4, ANAX, PE, IFX, PHEP #### [address] [address] Casino Gaming Inspector: Rohan Mitchell MD #### CDP, BMP, URI #### [facility] [address] [place] [address] Casino Gaming Inspector: William Ayala DO Urea nitrogen [Mass/Vol] 14 mg/dL Normal 8-23 [facility] Comment on above: Performed By: #### F KLLC, C3, C4, ANAX, PE, IFX, PHEP #### [address] [address] Casino Gaming Inspector: Rohan Mitchell MD #### CDP, BMP, URI #### [facility] [address] [place] [address] Casino Gaming Inspector: William Ayala DO BUN/CRE Ratio NOT REPORTED Normal 9-20 [facility] Comment on above: Performed By: #### F KLLC, C3, C4, ANAX, PE, IFX, PHEP #### [address] [address] Casino Gaming Inspector: Rohan Mitchell MD #### CDP, BMP, URI #### [facility] [address] [place] [address] Casino Gaming Inspector: William Ayala DO Staging: NOT REPORTED Normal [facility] Comment on above: Performed By: #### F KLLC, C3, C4, ANAX, PE, IFX, PHEP #### [address] [address] Casino Gaming Inspector: Rohan Mitchell MD #### CDP, BMP, URI #### [facility] [address] [place] [address] Casino Gaming Inspector: William Ayala DO C3on 10-23-2020 C3 133 mg/dL Normal 90-180 [facility] Comment on above: Performed By: #### F KLLC, C3, C4, ANAX, PE, IFX, PHEP #### [address] [place] [address] Casino Gaming Inspector: Rohan Mitchell MD #### BRICE MENDOZA, URI #### [facility] [address] [facility] [place] [address] Casino Gaming Inspector: William Ayala DO C3 ComplementOrdered By: Howard Miranda on 10-23-2020 Complement C3 133 mg/dL 90 - 180 mg/dL [facility] Phone: C4on 10-23-2020 C4 28 mg/dL Normal 10-40 [facility] Comment on above: Performed By: #### F KLLC, C3, C4, ANAX, PE, IFX, PHEP #### Who@ [address] [place] [address] Casino Gaming Inspector: Rohan Mitchell MD #### BRICE MENDOZA, URI #### [facility] [address] [facility] [place] [address] Casino Gaming Inspector: William Ayala DO C4 ComplementOrdered By: Howard Miranda on 10-23-2020 Complement C4 28 mg/dL 10 - 40 mg/dL [employer] Phone: CBC Auto DifferentialOrdered By: Pratik Miranda on 10-23-2020 Absolute Eos # 0.40 [employer] Phone: Absolute Immature Granulocyte NOT REPORTED [employer] Phone: Absolute Lymph # 2.60 [employer] Phone: Absolute [place] # 0.70 [employer] Phone: [phone] Basophils (Bld) [#/Vol] 0.10 10*3/uL [employer] Phone: Basophils/100 WBC (Bld) 1 % 0 - 2 % [employer] Phone: Differential Type NOT REPORTED [employer] Phone: Eosinophils/100 WBC (Bld) 5 % High 0 - 4 % [employer] Phone: Hematocrit (Bld) [Volume fraction] 42.5 % 41 - 53 % [employer] Phone: Hemoglobin.gastrointes tinal spec 1 Ql (Stl) 13.9 g/dL 13.5 - 17.5 g/dL [employer] Phone: Immature Granulocytes NOT REPORTED 0 % M [employer] Phone: Interpretation and review of laboratory results Abnormal [employer] Phone: Lymphocytes/100 WBC (Bld) 32 % 24 - 44 % [employer] Phone: MCH (RBC) [Entitic mass] 32.0 pg 26 - 34 pg [employer] Phone: MCHC (RBC) [Mass/Vol] 32.8 g/dL 31 - 37 g/dL [employer] Phone: MCV (RBC) [Entitic vol] 97.5 fL 80 - 100 fL [employer] Phone: Monocytes/100 WBC (Bld) 9 % High 1 - 7 % [employer] Phone: NRBC Automated NOT REPORTED per 100 WBC [employer] Phone: Platelet distribution width (Bld) [Ratio] 13.6 % 11.5 - 14.9 % [employer] Phone: Platelet Estimate NOT REPORTED [facility] Phone: Platelet mean volume (Bld) [Entitic vol] 7.0 fL 6.0 - 12.0 fL [employer] Phone: Platelets (Bld) [#/Vol] 241 10*3/uL [employer] Phone: RBC (Bld) [#/Vol] 4.36 10*6/uL Low 4.5 - 5.9 m/uL [employer] Phone: RBC (Bld) [#/Vol] NOT REPORTED [facility] Phone: Segmented neutrophils/100 WBC (Bld) 53 % 36 - 66 % [employer] Phone: Segs Absolute 4.30 [facility] Phone: WBC (Bld) [#/Vol] 8.0 10*3/uL [employer] Phone: WBC (Bld) [#/Vol] NOT REPORTED [facility] Phone: [employer] Phone: CBC with Diffon 10-23-2020 Abs. Basophil 0.10 k/uL Normal 0.0-0.2 [facility] Comment on above: Performed By: #### F KLLC, C3, C4, ANAX, PE, IFX, PHEP #### [facility] [address] [place] [address] Casino Gaming Inspector: Rohan Mitchell MD #### BRICE MENDOZA, URI #### [facility] [address] [place] [address] Casino Gaming Inspector: William Ayala DO Abs.Neutrophil (Seg) 4.30 k/uL Normal 1.3-9.1 [facility] Comment on above: Performed By: #### F KLLC, C3, C4, ANAX, PE, IFX, PHEP #### [facility] [address] [place] [id number] [employer] Gaming Inspector: Rohan Mitchell MD #### BRICE MENDOZA, URI #### [facility] [address] [place] [address] Casino Gaming Inspector: William Ayala DO Basophils/100 WBC (Bld) 1 % Normal 0-2 [facility] Comment on above: Performed By: #### F KLLC, C3, C4, ANAX, PE, IFX, PHEP #### [address] [address] Casino Gaming Inspector: Rohan Mitchell MD #### REJI, BRICE, URI #### [facility] [address] [place] [address] Casino Gaming Inspector: William Ayala DO Eosinophils (Bld) [#/Vol] 0.40 10*3/uL Normal 0.0-0.4 [facility] Comment on above: Performed By: #### F KLLC, C3, C4, ANAX, PE, IFX, PHEP #### [address] [address] Casino Gaming Inspector: Rohan Mitchell MD #### REJI, BRICE, URI #### [facility] [address] [place] [address] Casino Gaming Inspector: William Ayala DO Eosinophils/100 WBC (Bld) 5 % High 0-4 [facility] Comment on above: Performed By: #### F KLLC, C3, C4, ANAX, PE, IFX, PHEP #### [address] [address] Casino Gaming Inspector: Rohan Mitchell MD #### CDP, BMP, URI #### [facility] [address] [place] [address] Casino Gaming Inspector: William Ayala DO Erythrocyte distribution width (RBC) [Ratio] 13.6 % Normal 11.5-14.9 [facility] Comment on above: Performed By: #### F KLLC, C3, C4, ANAX, PE, IFX, PHEP #### [address] [address] Casino Gaming Inspector: Rohan Mitchell MD #### CDP, BMP, URI #### [facility] [place] [address] Casino Gaming Inspector: William Ayala DO Hematocrit (Bld) [Volume fraction] 42.5 % Normal 41-53 [facility] Comment on above: Performed By: #### F KLLC, C3, C4, ANAX, PE, IFX, PHEP #### [address] [address] Casino Gaming Inspector: Rohan Mitchell MD #### REJI, BRICE, URI #### [facility] [address] [place] [address] Casino Gaming Inspector: William Ayala DO Hemoglobin (Bld) [Mass/Vol] 13.9 g/dL Normal 13.5-17.5 [facility] Comment on above: Performed By: #### F KLLC, C3, C4, ANAX, PE, IFX, PHEP #### [address] [address] Casino Gaming Inspector: Rohan Mitchell MD #### REJI, BRICE, URI #### [facility] [address] [place] [address] Casino Gaming Inspector: William Ayala DO Lymphocytes (Bld) [#/Vol] 2.60 10*3/uL Normal 1.0-4.8 [facility] Comment on above: Performed By: #### F KLLC, C3, C4, ANAX, PE, IFX, PHEP #### [address] [address] Casino Gaming Inspector: Rohan Mitchell MD #### CDP, BRICE, URI #### [facility] [place] [address] Casino Gaming Inspector: William Ayala DO Lymphocytes/100 WBC (Bld) 32 % Normal 24-44 [facility] Comment on above: Performed By: #### F KLLC, C3, C4, ANAX, PE, IFX, PHEP #### [address] [address] Casino Gaming Inspector: Rohan Mitchell MD #### BRICE MENDOZA, URI #### [facility] [address] [place] [address] Casino Gaming Inspector: William Ayala DO MCH (RBC) [Entitic mass] 32.0 pg Normal 26-34 [facility] Comment on above: Performed By: #### F KLLC, C3, C4, ANAX, PE, IFX, PHEP #### [address] [address] Casino Gaming Inspector: Rohan Mitchell MD #### REJI, BRICE, URI #### [facility] [place] [address] Casino Gaming Inspector: William Ayala DO MCHC (RBC) [Mass/Vol] 32.8 g/dL Normal 31-37 [facility] Comment on above: Performed By: #### F KLLC, C3, C4, ANAX, PE, IFX, PHEP #### [address] [address] Casino Gaming Inspector: Rohan Mitchell MD #### REJI, BRICE, URI #### [facility] [place] [address] Casino Gaming Inspector: William Ayala DO MCV (RBC) [Entitic vol] 97.5 fL Normal 80-100 [facility] Comment on above: Performed By: #### F KLLC, C3, C4, ANAX, PE, IFX, PHEP #### [address] [address] Casino Gaming Inspector: Rohan Mitchell MD #### REJI, BRICE, URI #### [facility] [address] [place] [address] Casino Gaming Inspector: William Ayala DO Monocytes (Bld) [#/Vol] 0.70 10*3/uL Normal 0.1-1.3 [facility] Comment on above: Performed By: #### F KLLC, C3, C4, ANAX, PE, IFX, PHEP #### [address] [address] Casino Gaming Inspector: Rohan Mitchell MD #### REJI, BRICE, URI #### [facility] [place] [address] Casino Gaming Inspector: William Ayala DO Monocytes/100 WBC (Bld) 9 % High 1-7 [facility] Comment on above: Performed By: #### F KLLC, C3, C4, ANAX, PE, IFX, PHEP #### [address] [address] Casino Gaming Inspector: Rohan Mitchell MD #### REJI, BRICE, URI #### [facility] [place] [address] Casino Gaming Inspector: William Ayala DO Neutrophil (Seg) 53 % Normal 36-66 [facility] Comment on above: Performed By: #### F KLLC, C3, C4, ANAX, PE, IFX, PHEP #### [address] [address] Casino Gaming Inspector: Rohan Mitchell MD #### CDP, BRICE, URI #### [facility] [address] [place] [address] Casino Gaming Inspector: William Ayala DO Platelet mean volume (Bld) [Entitic vol] 7.0 fL Normal 6.0-12.0 [facility] Comment on above: Performed By: #### F KLLC, C3, C4, ANAX, PE, IFX, PHEP #### [address] [address] Casino Gaming Inspector: Rohan Mitchell MD #### CDP, BMP, URI #### [facility] [address] [place] [address] Casino Gaming Inspector: William Ayala DO Platelets (Bld) [#/Vol] 241 10*3/uL Normal 150-450 [facility] Comment on above: Performed By: #### F KLLC, C3, C4, ANAX, PE, IFX, PHEP #### [address] [address] Casino Gaming Inspector: Rohan Mitchell MD #### REJI, BRICE, URI #### [facility] [address] [place] [address] Casino Gaming Inspector: William Ayala DO RBC (Bld) [#/Vol] 4.36 10*6/uL Low 4.5-5.9 [facility] Comment on above: Performed By: #### F KLLC, C3, C4, ANAX, PE, IFX, PHEP #### [address] [address] Casino Gaming Inspector: Rohan Mitchell MD #### CDP, BMP, URI #### [facility] [address] [place] [address] Casino Gaming Inspector: William Ayala DO WBC (Bld) [#/Vol] 8.0 10*3/uL Normal 3.5-11.0 [facility] Comment on above: Performed By: #### F KLLC, C3, C4, ANAX, PE, IFX, PHEP #### [address] [address] Casino Gaming Inspector: Rohan Mitchell MD #### REJI, BRICE, URI #### [facility] [address] [place] [address] Casino Gaming Inspector: William Ayala DO Abs.Imm.Granulocyte NOT REPORTED Normal 0.00-0.30 [facility] Comment on above: Performed By: #### F KLLC, C3, C4, ANAX, PE, IFX, PHEP #### [address] [address] Casino Gaming Inspector: Rohan Mitchell MD #### BRICE MENDOZA, URI #### [facility] [address] [place] [address] Casino Gaming Inspector: William Ayala DO Auto Diff Performed NOT REPORTED Normal [facility] Comment on above: Performed By: #### F KLLC, C3, C4, ANAX, PE, IFX, PHEP #### [address] [address] Casino Gaming Inspector: Rohan Mitchell MD #### BRICE MENDOZA, URI #### [facility] [address] [place] [address] Casino Gaming Inspector: William Ayala DO Immature Granulocyte NOT REPORTED Normal 0 [facility] Comment on above: Performed By: #### F KLLC, C3, C4, ANAX, PE, IFX, PHEP #### [address] [address] Casino Gaming Inspector: Rohan Mitchell MD #### REJI, BRICE, URI #### [facility] [address] [place] [address] Casino Gaming Inspector: William Ayala DO NRBC Automated NOT REPORTED Normal [facility] Comment on above: Performed By: #### F KLLC, C3, C4, ANAX, PE, IFX, PHEP #### [facility] [address] [place] [address] Casino Gaming Inspector: Rohan Mitchell MD #### REJI, BRICE, URI #### [facility] [place] [address] Casino Gaming Inspector: William Ayala DO Platelet Estimate NOT REPORTED Normal [facility] Comment on above: Performed By: #### F KLLC, C3, C4, ANAX, PE, IFX, PHEP #### [address] [address] Casino Gaming Inspector: Rohan Mitchell MD #### BRICE MENDOZA, URI #### [facility] [address] [place] [address] Casino Gaming Inspector: William Ayala DO RBC morphology finding Nom (Bld) NOT REPORTED Normal [facility] Comment on above: Performed By: #### F KLLC, C3, C4, ANAX, PE, IFX, PHEP #### [address] [address] Casino Gaming Inspector: Rohan Mitchell MD #### REJI, BRICE, URI #### [facility] [address] [place] [address] Casino Gaming Inspector: William Ayala DO WBC Morphology NOT REPORTED Normal [facility] Comment on above: Performed By: #### F KLLC, C3, C4, ANAX, PE, IFX, PHEP #### [address] [address] Casino Gaming Inspector: Rohan Mitchell MD #### REJI, BRICE, URI #### [facility] [address] [place] [address] Casino Gaming Inspector: William Ayala DO Chloride, Random UrineOrdere d By: Pratik Miranda on 10-23-2020 Chloride, Ur 147 mmol/L [facility] Work Phone: Comment on above: No normal range esta blished. Chloride,Random Uron 021 Chloride [Moles/Vol] 147 mmol/L Normal [facility] Comment on above: Result Comment: No n ormal range established. Performed By: #### F KLLC, C3, C4, ANAX, PE, IFX, PHEP #### [address] [address] [employer] Gaming Inspector: Rohan Mitchell MD #### BRICE MENDOZA, URI #### [facility] [address] [place] [address] Casino Gaming Inspector: William Ayala, DO Free Paac Ciinak + Lambdaon 2020 Free Paac Ciinak Lt Chains 1.93 mg/dL Normal 0.37-1.94 [facility] Comment on above: Performed By: #### F KLLC, C3, C4, ANAX, PE, IFX, PHEP #### [address] [address] Casino Gaming Inspector: Rohan Mitchell MD #### BRICE MENDOZA, URI #### [facility] [address] [place] [address] Casino Gaming Inspector: William Ayala DO Free Paac Ciinak/Lambda Rat 1.35 Normal 0.26-1.65 [facility] Comment on above: Performed By: #### F KLLC, C3, C4, ANAX, PE, IFX, PHEP #### [address] [address] [employer] Gaming Inspector: Rhoan Mitchell MD #### REJI, BMP, URI #### [facility] [address] [place] [address] Casino Gaming Inspector: William Ayala DO Free Lambda Lt Chains 1.43 mg/dL Normal 0.57-2.63 [facility] Comment on above: Performed By: #### F KLLC, C3, C4, ANAX, PE, IFX, PHEP #### [address] [address] [employer] Gaming Inspector: Rohan Mitchell MD #### CDP, BMP, URI #### [facility] [place] [address] [employer] Gaming Inspector: William Ayala DO Hepatitis Acute [facility] 10-23 Hep A Ab,IgM Non-Reactive Normal NR [facility] Comment on above: Performed By: #### F KLLC, C3, C4, ANAX, PE, IFX, PHEP #### [address] [address] [employer] Gaming Inspector: Rohan Mitchell MD #### REJI, BRICE, URI #### [facility] [address] [place] [address] Casino Gaming Inspector: William Ayala DO Hep B Core Ab,IgM Non-Reactive Normal NR [facility] Comment on above: Performed By: #### F KLLC, C3, C4, ANAX, PE, IFX, PHEP #### [address] [address] [employer] Gaming Inspector: Rohan Mitchell MD #### REJI, BRICE, URI #### [facility] [address] [place] [address] [employer] Gaming Inspector: William Ayala DO Hep B Surf Ag Non-Reactive Normal NR [facility] Comment on above: Performed By: #### F KLLC, C3, C4, ANAX, PE, IFX, PHEP #### [address] [address] [employer] Gaming Inspector: Rohan Mitchell MD #### CDP, BMP, URI #### [facility] [address] [place] [address] [employer] Gaming Inspector: William Ayala DO Hep C Ab Non-Reactive Normal NR [facility] Comment on above: Result Comment: The hepatitis [...] C3, C4, ANAX, PE, IFX, PHEP #### [facility] [place] [address] [employer] Gaming Inspector: Rohan Mitchell MD #### BRICE MENDOZA, URI #### [facility] [address] [facility] [place] [address] [employer] Gaming Inspector: William Ayala DO Hepatitis Panel, AcuteOrdere d By: Pratik Miranda on 10-23-2020 HAV IgM IA Qn (S) Non-Reactive NONREACTIVE [facility] [employer] Phone: Hep B Core Ab, IgM Non-Reactive NONREACTIVE [facility] [employer] Phone: Hepatitis B Surface Ag Non-Reactive NONREACTIVE [facility] Phone: Hepatitis C Ab Non-Reactive NONREACTIVE [facility] Phone: Comment on above: The hepatitis C [...] recommended by ordering HCV RNA by PCR. [employer] Phone: Paac Ciinak/Lambda Free Lt Chains, Serum QuantOrdered By: Pratik Miranda on 10-23-2020 Free Paac Ciinak/Lambda Ratio 1.35 [employer] Phone: [employer] Chains QNT 1.93 mg/dL 0.37 - 1.94 mg/dL [facility] Phone: Lambda Free Light Chains QNT 1.43 mg/dL 0.57 - 2.63 mg/dL [employer] Phone: [employer] Phone: No Panel InformationOrdered By: Pratik Miranda on 10-23-2020 [facility] Phone: [employer] Phone: [employer] Phone: Prot. Electroph, Blon 2020 Protein [Mass/Vol] 6.6 g/dL Normal 6.4-8.3 [facility] Comment on above: Performed By: #### F KLLC, C3, C4, ANAX, PE, IFX, PHEP #### [employer] [address] [place] [address] [employer] Inspector: Rohan Mitchell MD #### BRICE MENDOZA, URI #### [facility] [address] [place], [place] [id number] Casino Gaming Inspector: William Ayala DO Prot. Electroph, Uron 6 Total Protein Conc. 11 mg/dL Normal [facility] Comment on above: Performed By: #### F KLLC, C3, C4, ANAX, PE, IFX, PHEP #### [employer] [address] [place] [address] [phone] Casino Gaming Inspector: Rohan Mitchell MD #### BRICE MENDOZA, URI #### [facility] [address] [place] [address] Casino Gaming Inspector: William Ayala DO Type of Specimen .URINE Normal [facility] Comment on above: Performed By: #### F KLLC, C3, C4, ANAX, PE, IFX, PHEP #### [facility] [address] [place] [address] [phone] Casino Gaming Inspector: Rohan Mitchell MD #### BRICE MENDOZA, URI #### [facility] [address] [place], [place] [id number] Casino Gaming Inspector: William Ayala DO Protein / creatinine ratio, urineOrdered By: Pratik Miranda on 10-23-2020 Creatinine, Ur 129.7 mg/dL 39.0 - 259.0 mg/dL [facility] [employer] Phone: Protein (U) [Mass/Vol] 10 mg/dL [facility] [employer] Phone: Comment on above: No normal range esta blished. Urine Total Protein Creatinine Ratio 0.08 [facility] Phone: [employer] Phone: Protein,Tot,[place] Uron 2020 Creatinine [Mass/Vol] 129.7 mg/dL Normal 39.0-259.0 [facility] Comment on above: Performed By: #### F KLLC, C3, C4, ANAX, PE, IFX, PHEP #### [employer] [address] [place] [address] [phone] Casino Gaming Inspector: Rohan Mitchell MD #### BRICE MENDOZA, URI #### [facility] [address] [place] [address] Casino Gaming Inspector: William Ayala DO Tot Prot. Conc. 10 mg/dL Normal [facility] Comment on above: Result Comment: No n ormal range established. Performed By: #### F KLLC, C3, C4, ANAX, PE, IFX, PHEP #### [employer] [address] [place] [address] [phone] Casino Gaming Inspector: Rohan Mitchell MD #### CDP, BMP, URI #### [facility] [address] [place] [address] Casino Gaming Inspector: William Ayala DO TP/Cre Ratio 0.08 Normal 0.00-0.20 [facility] Comment on above: Performed By: #### F KLLC, C3, C4, ANAX, PE, IFX, PHEP #### [employer] [address] [place] [address] Casino Gaming Inspector: Rohan Mitchell MD #### REJI, BMP, URI #### [facility] [address] [place] [address] Casino Gaming Inspector: William Ayala DO Sodium, Random Uron 10-24-19 Sodium (U) [Moles/Vol] 134 mmol/L Normal [facility] Comment on above: Result Comment: No n ormal range established. Performed By: #### F KLLC, C3, C4, ANAX, PE, IFX, PHEP #### [employer] [address] [place] [phone] Casino Gaming Inspector: Rohan Mitchell MD #### REJI, BMP, URI #### [facility] [address] [place] [address] Casino Gaming Inspector: William Ayala DO Sodium, urine, randomOrdered By: Pratik Miranda on 10-23-2020 Sodium (U) [Moles/Vol] 134 mmol/L [facility] Work Phone: Comment on above: No normal range esta blished. Uric Acidon 10-23-2020 Urate [Mass/Vol] 4.7 mg/dL Normal 3.4-7.0 [facility] Comment on above: Performed By: #### F KLLC, C3, C4, ANAX, PE, IFX, PHEP #### [employer] [address] [place] [address] Casino Gaming Inspector: Rohan Mitchell MD #### REJI, BMP, URI #### [facility] [address] [place] [address] Casino Gaming Inspector: William Ayala DO Uric AcidOrdered By: Pratik Miranda on 10-23-2020 Urate [Mass/Vol] 4.7 mg/dL 3.4 - 7.0 mg/dL [facility] Work Phone: Urinalysis w/ Microon 2020 ----- Normal [facility] Comment on above: Performed By: #### F KLLC, C3, C4, ANAX, PE, IFX, PHEP #### [address] [address] Casino Gaming Inspector: Rohan Mitchell MD #### REJI, BRICE, URI #### [facility] [address] [place] [address] Casino Gaming Inspector: William Ayala DO Bacteria FEW Abnormal NONE [facility] Comment on above: Performed By: #### F KLLC, C3, C4, ANAX, PE, IFX, PHEP #### [address] [address] Casino Gaming Inspector: Rohan Mitchell MD #### BRICE MENDOZA, URI #### [facility] [address] [place] [address] Casino Gaming Inspector: William Ayala DO Epithelial cells LM Ql (Urine sed) 0 TO 2 Normal [facility] Comment on above: Performed By: #### F KLLC, C3, C4, ANAX, PE, IFX, PHEP #### [address] [address] Casino Gaming Inspector: Rohan Mitchell MD #### REJI, BRICE, URI #### [facility] [address] [place] [address] Casino Gaming Inspector: William Ayala DO Urine RBC's 5 TO 10 Normal [facility] Comment on above: Performed By: #### F KLLC, C3, C4, ANAX, PE, IFX, PHEP #### [address] [address] Casino Gaming Inspector: Rohan Mitchell MD #### CDP, BMP, URI #### [facility] [address] [place] [address] Casino Gaming Inspector: William Ayala DO Urine WBC's 2 TO 5 Normal [facility] Comment on above: Performed By: #### F KLLC, C3, C4, ANAX, PE, IFX, PHEP #### [address] [address] Casino Gaming Inspector: Rohan Mitchell MD #### CDP, BMP, URI #### [facility] [address] [place] [address] Casino Gaming Inspector: William Ayala DO Bilirubin, SemiQt,Ur Negative Normal NEG [facility] Comment on above: Performed By: #### F KLLC, C3, C4, ANAX, PE, IFX, PHEP #### [address] [address] Casino Gaming Inspector: Rohan Mitchell MD #### CDP, BMP, URI #### [facility] [address] [place] [address] Casino Gaming Inspector: William Ayala DO Blood, Urine Negative Normal NEG [facility] Comment on above: Performed By: #### F KLLC, C3, C4, ANAX, PE, IFX, PHEP #### [address] [address] Casino Gaming Inspector: Rohan Mitchell MD #### REJI, BRICE, URI #### [facility] [address] [place] [address] Casino Gaming Inspector: William Ayala DO Clarity (U) CLEAR Normal CLEAR [facility] Comment on above: Performed By: #### F KLLC, C3, C4, ANAX, PE, IFX, PHEP #### [address] [address] Casino Gaming Inspector: Rohan Mitchell MD #### CDP, BRICE, URI #### [facility] [address] [place] [address] Casino Gaming Inspector: William Ayala DO Color (U) YELLOW Normal YEL [facility] Comment on above: Performed By: #### F KLLC, C3, C4, ANAX, PE, IFX, PHEP #### [address] [address] Casino Gaming Inspector: Rohan Mitchell MD #### REJI, BRICE, URI #### [facility] [place] [address] Casino Gaming Inspector: William Ayala DO Glucose Ql (U) 3+ Abnormal NEG [facility] Comment on above: Performed By: #### F KLLC, C3, C4, ANAX, PE, IFX, PHEP #### [address] [address] Casino Gaming Inspector: Rohan Mitchell MD #### REJI, BRICE, URI #### [facility] [place] [address] Casino Gaming Inspector: William Ayala DO Ketones Ql (U) Negative Normal NEG [facility] Comment on above: Performed By: #### F KLLC, C3, C4, ANAX, PE, IFX, PHEP #### [address] [address] Casino Gaming Inspector: Rohan Mitchell MD #### CDP, BMP, URI #### [facility] [address] [place] [address] Casino Gaming Inspector: William Ayala DO Leukocyte esterase Test strip Ql (U) Negative Normal NEG [facility] Comment on above: Performed By: #### F KLLC, C3, C4, ANAX, PE, IFX, PHEP #### [address] [address] Casino Gaming Inspector: Rohan Mitchell MD #### REJI, BMP, URI #### [facility] [address] [place] [address] Casino Gaming Inspector: William Ayala DO Nitrite,Ur Negative Normal NEG [facility] Comment on above: Performed By: #### F KLLC, C3, C4, ANAX, PE, IFX, PHEP #### [address] [address] Casino Gaming Inspector: Rohan Mitchell MD #### REJI, BMP, URI #### [facility] [address] [place] [address] Casino Gaming Inspector: William Ayala DO PH,Ur 6.0 Normal 5.0-8.0 [facility] Comment on above: Performed By: #### F KLLC, C3, C4, ANAX, PE, IFX, PHEP #### [address] [address] Casino Gaming Inspector: Rohan Mitchell MD #### CDP, BMP, URI #### [facility] [address] [place] [address] Casino Gaming Inspector: William Ayala DO Protein Ql (U) Negative Normal NEG [facility] Comment on above: Performed By: #### F KLLC, C3, C4, ANAX, PE, IFX, PHEP #### [address] [address] Casino Gaming Inspector: Rohan Mitchell MD #### CDP, BMP, URI #### [facility] [place] [address] Casino Gaming Inspector: William Ayala DO Spec. [place],Ur 1.027 Normal 1.000-1.030 [facility] Comment on above: Performed By: #### F KLLC, C3, C4, ANAX, PE, IFX, PHEP #### [address] [address] Casino Gaming Inspector: Rohan Mitchell MD #### CDP, BMP, URI #### [facility] [address] [place] [address] Casino Gaming Inspector: William Ayala DO Urobilinogen,Ur Normal Normal NORM [facility] Comment on above: Performed By: #### F KLLC, C3, C4, ANAX, PE, IFX, PHEP #### [address] [address] Casino Gaming Inspector: Rohan Mitchell MD #### CDP, BMP, URI #### [facility] [address] [place] [address] Casino Gaming Inspector: William Ayala DO Amorphous sediment LM Ql (Urine sed) NOT REPORTED Normal NONE [facility] Comment on above: Performed By: #### F KLLC, C3, C4, ANAX, PE, IFX, PHEP #### [address] [address] Casino Gaming Inspector: Rohan Mitchell MD #### CDP, BMP, URI #### [facility] [address] [place] [address] Casino Gaming Inspector: William Ayala DO Casts NOT REPORTED Normal [facility] Comment on above: Performed By: #### F KLLC, C3, C4, ANAX, PE, IFX, PHEP #### [address] [address] Casino Gaming Inspector: Rohan Mitchell MD #### REJI, BMP, URI #### [facility] [address] [place] [address] Casino Gaming Inspector: William Ayala DO Comment NOT REPORTED Normal [facility] Comment on above: Performed By: #### F KLLC, C3, C4, ANAX, PE, IFX, PHEP #### [address] [address] Casino Gaming Inspector: Rohan Mitchell MD #### REJI, BRICE, URI #### [facility] [address] [place] [address] Casino Gaming Inspector: William Ayala DO Crystals LM Nom (Urine sed) NOT REPORTED Normal NONE [facility] Comment on above: Performed By: #### F KLLC, C3, C4, ANAX, PE, IFX, PHEP #### [address] [address] Casino Gaming Inspector: Rohan Mitchell MD #### REJI, BMP, URI #### [facility] [address] [place] [address] Casino Gaming Inspector: William Ayala DO Epithelial, Renal NOT REPORTED Normal 0 [facility] Comment on above: Performed By: #### F KLLC, C3, C4, ANAX, PE, IFX, PHEP #### [address] [address] Casino Gaming Inspector: Rohan Mitchell MD #### CDP, BMP, URI #### [facility] [address] [place] [address] Casino Gaming Inspector: William Ayala DO Mucus Strands NOT REPORTED Normal NONE [facility] Comment on above: Performed By: #### F KLLC, C3, C4, ANAX, PE, IFX, PHEP #### [address] [address] Casino Gaming Inspector: Rohan Mitchell MD #### CDP, BMP, URI #### [facility] [address] [place] [address] Casino Gaming Inspector: William Ayala DO Other Observations NOT REPORTED Normal NREQ [facility] Comment on above: Performed By: #### F KLLC, C3, C4, ANAX, PE, IFX, PHEP #### [address] [address] Casino Gaming Inspector: Rohan Mitchell MD #### CDP, BMP, URI #### [facility] [address] [place] [address] Casino Gaming Inspector: William Ayala DO Trichomonas NOT REPORTED Normal NONE [facility] Comment on above: Performed By: #### F KLLC, C3, C4, ANAX, PE, IFX, PHEP #### [address] [address] Casino Gaming Inspector: Rohan Mitchell MD #### CDP, BMP, URI #### [facility] [address] [place] [address] Casino Gaming Inspector: William Ayala DO Yeast NOT REPORTED Normal NONE [facility] Comment on above: Performed By: #### F KLLC, C3, C4, ANAX, PE, IFX, PHEP #### [address] [address] Casino Gaming Inspector: Rohan Mitchell MD #### CDP, BMP, URI #### [employer] [facility] [address] [place] [address] Casino Gaming Inspector: William Ayala DO Urinalysis with MicroscopicO rdered By: Pratik Miranda on 10-23-2020 - [employer] Work Phone: Amorphous, UA NOT REPORTED None [employer] Work Phone: Bacteria, UA FEW Abnormal None [employer] Work Phone: Bilirubin Urine Negative NEGATIVE [employer] Work Phone: Casts UA NOT REPORTED /LPF [employer] Work Phone: Color, UA YELLOW YELLOW [employer] Work Phone: Crystals, UA NOT REPORTED None /HPF [employer] Work Phone: Epithelial Cells UA 0 TO 2 /HPF [employer] Work Phone: Glucose, Ur 3+ Abnormal NEGATIVE [employer] Phone: Interpretation and review of laboratory results Abnormal [employer] Work Phone: Ketones Ql (U) Negative NEGATIVE [employer] Work Phone: Leukocyte esterase Test strip Ql (U) Negative NEGATIVE [employer] Phone: [phone] Mucus, UA NOT REPORTED None [employer] Work Phone: Nitrite, Urine Negative NEGATIVE [employer] Work Phone: Other Observations UA NOT REPORTED NOT REQ. [facility] Work Phone: pH, UA 6.0 [employer] Work Phone: [phone] Protein, UA Negative NEGATIVE [employer] Work Phone: RBC, UA 5 TO 10 /HPF [employer] Work Phone: Renal Epithelial, UA NOT REPORTED 0 /HPF [facility] [employer] Work Phone: Specific [place], UA 1.027 [facility] [employer] Work Phone: Trichomonas, UA NOT REPORTED None [facility] Phone: Turbidity UA CLEAR CLEAR [facility] Work Phone: Urinalysis Comments NOT REPORTED [facility] [employer] Work Phone: Urine Hgb Negative NEGATIVE [employer] Work Phone: Urobilinogen, Urine Normal Normal [employer] Phone: WBC, UA 2 TO 5 /HPF [facility] Phone: Yeast, UA NOT REPORTED None [employer] Phone: [facility] Phone: Cult,Urineon 09-26-2020 Cult,Urine Specimen Description .CLEAN CATCH URINE Special Requests NOT REPORTED Culture NO GROWTH Report Status FINAL 09/26/2020 Normal [facility] Comment on above: Performed By: #### U RC #### [employer] [address] [place] [address] Casino Gaming Inspector: Rohan Mitchell MD [facility] [address] [facility] [place] [place] [address] Casino Gaming Inspector: Scot Ochoa MD Basic Metabolic PanelOrdered By: William Ford on 09-25-2020 Anion gap [Moles/Vol] 10 mmol/L 9 - 17 mmol/L [facility] Phone: Calcium [Mass/Vol] 9.6 mg/dL 8.6 - 10. 4 mg/dL [facility] Phone: Chloride [Moles/Vol] 104 mmol/L 98 - 10 7 mmol/L [facility] Phone: CO2 [Moles/Vol] 26 mmol/L 20 - 31 mmol/L [employer] Phone: Creatinine [Mass/Vol] 1.28 mg/dL High 0.70 - 1.20 mg/dL [employer] Phone: GFR >60 >60 mL/min [employer] Phone: GFR Non- 57 mL/min Low >60 [employer] Phone: Glucose [Mass/Vol] 231 mg/dL High 70 - 99 mg/dL [employer] Phone: Interpretation and review of laboratory results Abnormal [employer] Phone: Potassium [Moles/Vol] 5.0 mmol/L 3.7 - 5.3 mmol/L [employer] Phone: Sodium [Moles/Vol] 140 mmol/L 135 - 144 mmol/L [employer] Phone: Urea nitrogen (BldV) [Mass/Vol] 21 mg/dL 8 - 23 mg/dL [employer] Phone: Urea nitrogen/Creatinine (Bld) [Mass ratio] 16 [employer] Phone: [employer] Phone: Basic Metabolic Profon 09-25 (cont.) Normal [facility] Comment on above: Result Comment: Aver age GFR for 60-69 years old: 85 mL/min/1.73sq m Chronic Kidney Disease: <60 mL/min/1.73sq m Kidney failure: <15 mL/min/1.73sq m eGFR calculated using average adult body mass. Additional eGFR calculator available at: http://www.[employer]/multiple_crcl_2012.htm Performed By: #### B MP #### [facility] [address] [place] [address] [employer] Inspector: Scot Ochoa MD Anion gap [Moles/Vol] 10 mmol/L Normal 9-17 [facility] Comment on above: Performed By: #### B MP #### [facility] [address] [place], [place] [phone] Casino [employer] Inspector: Scot Ochoa MD BUN/CRE Ratio 16 Normal 9-20 [facility] Comment on above: Performed By: #### B MP #### [facility] [address] [place], [place] [phone] Casino Gaming Inspector: Scot Ochoa MD Calcium [Mass/Vol] 9.6 mg/dL Normal 8.6-10.4 [facility] Comment on above: Performed By: #### B MP #### [facility] [address] [place], [place] [phone] Casino Gaming Inspector: Scot Ochoa MD Chloride [Moles/Vol] 104 mmol/L Normal 98-107 [facility] Comment on above: Performed By: #### B MP #### [facility] [address] [place], [place] [phone] Casino Gaming Inspector: Scot Ochoa MD CO2 [Moles/Vol] 26 mmol/L Normal 20-31 [facility] Comment on above: Performed By: #### B MP #### [facility] [address] [place], [place] [phone] Casino Gaming Inspector: Scot Ochoa MD Creatinine [Mass/Vol] 1.28 mg/dL High 0.70-1.20 [facility] Comment on above: Performed By: #### B MP #### [facility] [address] [place], [place] 3562383 Casino Gaming Inspector: Scot Ochoa MD GFR, Amer >60 Normal >60 [facility] Comment on above: Performed By: #### B MP #### [facility] [address] [place], [place] [phone] Casino Gaming Inspector: Scot Ochoa MD GFR,non Amer 57 mL/min Low >60 [facility] Comment on above: Performed By: #### B MP #### [facility] [address] [place], [place] 3609583 Casino Gaming Inspector: Scot Ohcoa MD Glucose [Mass/Vol] 231 mg/dL High 70-99 [facility] Comment on above: Performed By: #### B MP #### [facility] [address] [place], [place] [phone] Casino Gaming Inspector: Scot Ochoa MD Potassium [Moles/Vol] 5.0 mmol/L Normal 3.7-5.3 [facility] Comment on above: Performed By: #### B MP #### [facility] [address] [place], [place] [phone] Casino Gaming Inspector: Scot Ochoa MD Sodium [Moles/Vol] 140 mmol/L Normal 135-144 [facility] Comment on above: Performed By: #### B MP #### [address] [place], [place] [phone] Casino Gaming Inspector: Scot Ochoa MD Staging: Normal [facility] Comment on above: Result Comment: Stag e 1: Some kidney damage normal GFR Stage 2: Mild kidney damage GFR 60-89 Stage 3: Moderate kidney damage GFR 30-59 Stage 4: Severe kidney damage GFR 15-29 Stage 5: Severe kidney damage GFR <15 ESRD - chronic treatment by dialysis or transplant Performed By: #### B MP #### [facility] [address] [place] [address] [place] [place], [place] [phone] Casino Gaming Inspector: Scot Ochoa MD Urea nitrogen [Mass/Vol] 21 mg/dL Normal 8-23 [facility] Comment on above: Performed By: #### B MP #### [facility] [address] [place] [address] Casino Gaming Inspector: Scot Ochoa MD Laboratory - Chemistry and C hemistry - challengeOrdered By: William Ford on 09-25-2020 GFR/1.73 sq M.predicted MDRD (S/P/Bld) [Vol rate/Area] [facility] Work Phone: Comment on above: Average GFR for 60-6 9 years old: 85 mL/min/1.73sq m Chronic Kidney Disease: <60 mL/min/1.73sq m Kidney failure: <15 mL/min/1.73sq m eGFR calculated using average adult body mass. Additional eGFR calculator available at: http://www.[employer]/multiple_crcl_2012.htm Stage 1: Some kidney damage normal GFR Stage 2: Mild kidney damage GFR 60-89 Stage 3: Moderate kidney damage GFR 30-59 Stage 4: Severe kidney damage GFR 15-29 Stage 5: Severe kidney damage GFR <15 ESRD - chronic treatment by dialysis or transplant Urinalysis w/ Microon 2020 ----- Normal [facility] Comment on above: Performed By: #### U AMIC #### [facility] [address] [place] [address] [place] [address] [employer] Inspector: Scot Ochoa MD Bilirubin, SemiQt,Ur Negative Normal NEG [facility] Comment on above: Performed By: #### U AMIC #### [facility] [address] [place] [address] [place] [address] Casino Gaming Inspector: Scot Ochoa MD Blood, Urine TRACE Abnormal NEG [facility] Comment on above: Performed By: #### U AMIC #### [facility] [address] [place] [address] Casino Gaming Inspector: Scot Ochoa MD Clarity (U) CLEAR Normal CLEAR [facility] Comment on above: Performed By: #### U AMIC #### [facility] [address] [place] [address] [place] [address] Casino Gaming Inspector: Scot Ochoa MD Color (U) YELLOW Normal YEL [facility] Comment on above: Performed By: #### U AMIC #### [facility] [address] [place], [place] [phone] Casino [employer] Inspector: Scot Ochoa MD Epithelial cells LM Ql (Urine sed) 0 TO 2 Normal 0-5 [facility] Comment on above: Performed By: #### U AMIC #### [facility] [address] [place], [place] [phone] Casino [employer] Inspector: Scot Ochoa MD Glucose Ql (U) 3+ Abnormal NEG [facility] Comment on above: Performed By: #### U AMIC #### [facility] [address] [place], [place] 1135783 Casino Gaming Inspector: Scot Ochoa MD Ketones Ql (U) Negative Normal NEG [facility] Comment on above: Performed By: #### U AMIC #### [facility] [address] [place], [place] [phone] Casino Gaming Inspector: Scot Ochoa MD Leukocyte esterase Test strip Ql (U) Negative Normal NEG [facility] Comment on above: Performed By: #### U AMIC #### [facility] [address] [place], [place] [phone] Casino [employer] Inspector: Scot Ochoa MD Nitrite,Ur Negative Normal NEG [facility] Comment on above: Performed By: #### U AMIC #### [facility] [address] [place], [place] 511[address] Casino Gaming Inspector: Scot Ochoa MD PH,Ur 6.0 Normal 5.0-9.0 [facility] Comment on above: Performed By: #### U AMIC #### [facility] [address] [place], [place] [id number] [employer] Inspector: Scot Ochoa MD Protein Ql (U) Negative Normal NEG [facility] Comment on above: Performed By: #### U AMIC #### [facility] [address] [place], [place] [address] [employer] Inspector: Scot Ochoa MD Spec. [place],Ur 1.025 High 1.010-1.020 [facility] Comment on above: Performed By: #### U AMIC #### [facility] [address] [place] [address] [employer] Inspector: Scot Ochoa MD Urine RBC's None Normal 0-2 [facility] Comment on above: Performed By: #### U AMIC #### [facility] [address] [place] [address] [employer] Inspector: Scot Ochoa MD Urine WBC's None Normal 0-5 [facility] Comment on above: Performed By: #### U AMIC #### [facility] [address] [place] [address] [place] [address] [employer] Inspector: Scot Ochoa MD Urobilinogen,Ur Normal Normal NORM [facility] Comment on above: Performed By: #### U AMIC #### [facility] [address] [place] [address] [employer] Inspector: Scot Ochoa MD Amorphous sediment LM Ql (Urine sed) NOT REPORTED Normal [facility] Comment on above: Performed By: #### U AMIC #### [facility] [address] [place] [address] [place] [address] [employer] Inspector: Scot Ochoa MD Bacteria NOT REPORTED Normal [facility] Comment on above: Performed By: #### U AMIC #### [facility] [address] [place] [address] [employer] Inspector: Scot Ochoa MD Casts NOT REPORTED Normal [facility] Comment on above: Performed By: #### U AMIC #### [facility] [address] [place] [address] [employer] Inspector: Scot Ochoa MD Comment NOT REPORTED Normal [facility] Comment on above: Performed By: #### U AMIC #### [facility] [address] [place] [address] [employer] Inspector: Scot Ochoa MD Crystals LM Nom (Urine sed) NOT REPORTED Normal [facility] Comment on above: Performed By: #### U AMIC #### [facility] [address] [place], [place] [address]100[address] [employer] Inspector: Scot Ochoa MD Epithelial, Renal NOT REPORTED Normal 0 [facility] Comment on above: Performed By: #### U AMIC #### [facility] [address] [place], [place] 5756383 [employer] Inspector: Scot Ochoa MD Mucus Strands NOT REPORTED Normal [facility] Comment on above: Performed By: #### U AMIC #### [facility] [address] [place] [address] [employer] Inspector: Scot Ochoa MD Other Observations NOT REPORTED [facility] Comment on above: Performed By: #### U AMIC #### [facility] [address] [place] [address] [employer] Inspector: Scot Ochoa MD Trichomonas NOT REPORTED Normal NONE [facility] Comment on above: Performed By: #### U AMIC #### [facility] [address] [place] [address] [employer] Inspector: Scot Ochoa MD Yeast NOT REPORTED Normal [facility] Comment on above: Performed By: #### U AMIC #### [facility] [address] [place], [place] 3738683 [employer] Inspector: Scot Ochoa MD Urinalysis with MicroscopicO rdered By: William Ford on 09-25-2020 - [facility] [employer] Phone: Amorphous, UA NOT REPORTED None [facility] Phone: Bacteria, UA NOT REPORTED None [facility] Phone: Bilirubin Urine Negative NEGATIVE [facility] Work Phone: Casts UA NOT REPORTED /LPF [facility] [employer] Work Phone: Color, UA YELLOW YELLOW [facility] [employer] Work Phone: Crystals, UA NOT REPORTED None /HPF [facility] [employer] Work Phone: Epithelial Cells UA 0 TO 2 [facility] [employer] Work Phone: Glucose, Ur 3+ Abnormal NEGATIVE [facility] Work Phone: Interpretation and review of laboratory results Abnormal [facility] Work Phone: Ketones Ql (U) Negative NEGATIVE [facility] [employer] Work Phone: Leukocyte esterase Test strip Ql (U) Negative NEGATIVE [facility] Work Phone: Mucus, UA NOT REPORTED None [facility] Work Phone: Nitrite, Urine Negative NEGATIVE [employer] Work Phone: Other Observations UA NOT REPORTED NOT REQ. [facility] [employer] Work Phone: pH, UA 6.0 [place] [employer] Work Phone: Protein, UA Negative NEGATIVE [facility] Work Phone: RBC, UA None [facility] [employer] Work Phone: Renal Epithelial, UA NOT REPORTED 0 /HPF [facility] [employer] Work Phone: Specific [place], UA 1.025 [employer] Work Phone: Trichomonas, UA NOT REPORTED None [facility] [employer] Work Phone: Turbidity UA CLEAR CLEAR [facility] Work Phone: Urinalysis Comments NOT REPORTED [employer] Work Phone: Urine Hgb TRACE Abnormal NEGATIVE [facility] Work Phone: Urobilinogen, Urine Normal Normal [facility] Phone: WBC, UA None [employer] Phone: Yeast, UA NOT REPORTED None [employer] Phone: [employer] Phone: XR ABDOMEN (KUB) (SINGLE AP VIEW)on [...] Jamie Quispe MD 09/25/20 Final result Normal [facility] XR ABDOMEN (KUB) (SINGLE AP VIEW)Ordered By: William Ford on 09-25-2020 Moderate amount of retained stool in the colon. No extra skeletal calcifications are identified. [employer] Phone: EXAMINATION: ONE SUP INE XRAY VIEW(S) OF THE ABDOMEN 09/25/2020 2:15 pm COMPARISON: None. HISTORY: ORDERING SYSTEM PROVIDED HISTORY: Renal calculus FINDINGS: Moderate amount of retained stool in the colon. Unremarkable bowel gas pattern. No evidence for obstruction. No extra skeletal calcifications are identified. [employer] Phone: [place], [employer] Incoming Radiant Results From Fieldbook/[employer]ven[employer] - 09/25/2020 4:08 PM EDT EXAMINATION: ONE SUPINE XRAY VIEW(S) OF THE ABDOMEN 09/25/2020 2:15 pm COMPARISON: None. HISTORY: ORDERING SYSTEM PROVIDED HISTORY: Renal calculus FINDINGS: Moderate amount of retained stool in the colon. Unremarkable bowel gas pattern. No evidence for obstruction. No extra skeletal calcifications are identified. IMPRESSION: Moderate amount of retained stool in the colon. No extra skeletal calcifications are identified. [facility] Work Phone: [facility] Work Phone: Cult,Urineon 2019 Cult,Urine Specimen Description .VOIDED URINE Special Requests NOT REPORTED Culture NO GROWTH Report Status FINAL 12/06/2019 [facility] Comment on above: Performed By: #### U #### [facility] [address], [place] [id number] [employer] Inspector: Rohan Mitchell MD [facility] [address] [address] [employer] Inspector: Hector Jarrett MD Basic Metabolic Panelon 11-07 Anion gap [Moles/Vol] 10 mmol/L 9 - 17 mmol/L [place], [place] Bun/Cre Ratio 13 [place] Calcium [Mass/Vol] 10.1 mg/dL 8.6 - 10. 4 mg/dL [place] Chloride [Moles/Vol] 98 mmol/L 98 - 10 7 mmol/L [place] CO2 [Moles/Vol] 28 mmol/L 20 - 31 mmol/L [place] Creatinine [Mass/Vol] 1.39 mg/dL High 0.7 - 1.2 mg/dL [place] GFR >60 >60 mL/min [place] GFR Non- 52 mL/min Low >60 [place] Glucose [Mass/Vol] 245 mg/dL High 70 - 99 mg/dL [place] Interpretation and review of laboratory results Abnormal [place] Potassium [Moles/Vol] 4.9 mmol/L 3.7 - 5.3 mmol/L [place] Sodium [Moles/Vol] 136 mmol/L 135 - 144 mmol/L [place] Urea nitrogen [Mass/Vol] 18 mg/dL 6 - 20 mg/dL [place] Basic Metabolic Profon 12-04 (cont.) Normal [facility] Comment on above: Result Comment: Aver age GFR for 50-59 years old: 93 mL/min/1.73sq m Chronic Kidney Disease: <60 mL/min/1.73sq m Kidney failure: <15 mL/min/1.73sq m eGFR calculated using average adult body mass. Additional eGFR calculator available at: http://www.[employer]/multiple_crcl_2012.htm Performed By: #### B MP, CDP #### [facility] [address] [place], [place] [phone] [employer]: Hector Jarrett MD Anion gap [Moles/Vol] 10 mmol/L Normal 9-17 [facility] Comment on above: Performed By: #### B MP, CDP #### [facility] [address] [place], [place] [id number] [employer] Inspector: Hector Jarrett MD BUN/CRE Ratio 13 Normal 9-20 [facility] Comment on above: Performed By: #### B MP, CDP #### [facility] [address] [place], [place] [address]83 [employer] Inspector: Hector Jarrett MD Calcium [Mass/Vol] 10.1 mg/dL Normal 8.6-10.4 [facility] Comment on above: Performed By: #### B MP, CDP #### [address] [place] [address] [employer] Inspector: Hector Jarrett MD Chloride [Moles/Vol] 98 mmol/L Normal 98-107 [facility] Comment on above: Performed By: #### B MP, CDP #### [facility] [address] [place], [place] [address]3 [employer] Inspector: Hector Jarrett MD CO2 [Moles/Vol] 28 mmol/L Normal 20-31 [facility] Comment on above: Performed By: #### B MP, CDP #### [facility] [address] [place], [place] [address]83 [employer] Inspector: Hector Jarrett MD Creatinine [Mass/Vol] 1.39 mg/dL High 0.70-1.20 [facility] Comment on above: Performed By: #### B MP, CDP #### [facility] [address] [place], [place] [address]483 [employer] Inspector: Hector Jarrett MD GFR, Amer >60 Normal >60 [facility] Comment on above: Performed By: #### B MP, CDP #### [facility] [address] [place], [place] [phone] [employer] Inspector: Hector Jarrett MD GFR,non Amer 52 mL/min Low >60 [facility] Comment on above: Performed By: #### B MP, CDP #### [facility] [address] [place], [place] [address]183 [employer] Inspector: Hector Jarrett MD Glucose [Mass/Vol] 245 mg/dL High 70-99 [facility] Comment on above: Performed By: #### B MP, CDP #### [facility] [address] [place] [address] [employer] Inspector: Hector Jarrett MD Potassium [Moles/Vol] 4.9 mmol/L Normal 3.7-5.3 [facility] Comment on above: Performed By: #### B MP, CDP #### [facility] [address] [place] [address] [employer] Inspector: Hector Jarrett MD Sodium [Moles/Vol] 136 mmol/L Normal 135-144 [facility] Comment on above: Performed By: #### B MP, CDP #### [facility] [address] [place], [place] 6372183 [employer] Inspector: Hector Jarrett MD Staging: Normal [facility] Comment on above: Result Comment: Stag e 1: Some kidney damage normal GFR Stage 2: Mild kidney damage GFR 60-89 Stage 3: Moderate kidney damage GFR 30-59 Stage 4: Severe kidney damage GFR 15-29 Stage 5: Severe kidney damage GFR <15 ESRD - chronic treatment by dialysis or transplant Performed By: #### B MP, CDP #### [facility] [address] [address] [employer] Inspector: Hector Jarrett MD Urea nitrogen [Mass/Vol] 18 mg/dL Normal 6-20 [facility] Comment on above: Performed By: #### B MP, CDP #### [facility] [address] [address] [employer]: Hector Jarrett MD CBC Auto Differentialon 11-07 Basophils (Bld) [#/Vol] 0.06 10*3/uL [place] Basophils/100 WBC (Bld) 1 % 0 - 2 % [place] Differential Type NOT REPORTED [place] Eosinophils (Bld) [#/Vol] 0.33 10*3/uL [place] Eosinophils/100 WBC (Bld) 3 % 1 - 4 % [place] Erythrocyte distribution width (RBC) [Ratio] 13.0 % 11.8 - 14.4 % [place] Hematocrit (Bld) [Volume fraction] 40.7 % 40.7 - 50.3 % [place] Hemoglobin (Bld) [Mass/Vol] 13.7 g/dL 13 - 17 g/dL [place] Immature granulocytes (Bld) [#/Vol] 0.05 10*3/uL [place] Immature granulocytes (Bld) [#/Vol] 1 % High 0 [place] Interpretation and review of laboratory results Abnormal [place] Lymphocytes (Bld) [#/Vol] 3.53 10*3/uL [place] Lymphocytes/100 WBC (Bld) 36 % 24 - 43 % [place] MCH (RBC) [Entitic mass] 32.9 pg 25.2 - 33.5 pg [place] MCHC (RBC) [Mass/Vol] 33.7 g/dL 28.4 - 34.8 g/dL [place] MCV (RBC) [Entitic vol] 97.8 fL 82.6 - 102.9 fL [place] Monocytes (Bld) [#/Vol] 0.78 10*3/uL [place] Monocytes/100 WBC (Bld) 8 % 3 - 12 % [place] Platelet mean volume (Bld) [Entitic vol] 8.6 fL 8.1 - 13.5 fL [place] Platelets (Bld) [#/Vol] NOT REPORTED [place] Platelets (Bld) [#/Vol] 239 10*3/uL [place] RBC (Bld) [#/Vol] 4.16 10*6/uL Low 4.21 - 5.7 7 m/uL [place] RBC morphology finding Nom (Bld) NOT REPORTED [place] Segmented neutrophils/100 WBC (Bld) 51 % 36 - 65 % [place] Segs Absolute 5.18 [place] WBC (Bld) [#/Vol] 9.9 10*3/uL [place] WBC (Bld) [#/Vol] 0.0 10*3/uL 0.0 per 10 0 WBC [place] WBC Morphology NOT REPORTED [place] CBC with Diffon 12-05-2019 Abs. Basophil 0.06 k/uL Normal 0.00-0.20 [facility] Comment on above: Performed By: #### B YOMI, CDP #### [facility] [address] [address] [employer] Inspector: Hector Jarrett MD Abs.Imm.Granulocyte 0.05 k/uL Normal 0.00-0.30 [facility] Comment on above: Performed By: #### B YOMI, CDP #### [facility] [address] [address] [employer] Inspector: Hector Jarrett MD Abs.Neutrophil (Seg) 5.18 k/uL Normal 1.50-8.10 [facility] Comment on above: Performed By: #### B YOMI, CDP #### [facility] [address] [place], [place] 130[address]383 [employer] Inspector: Hector Jarrett MD Basophils/100 WBC (Bld) 1 % Normal 0-2 [facility] Comment on above: Performed By: #### B MP, CDP #### [facility] [address] [place], [place] 3828683 [employer] Inspector: Hector Jarrett MD Eosinophils (Bld) [#/Vol] 0.33 10*3/uL Normal 0.00-0.44 [facility] Comment on above: Performed By: #### B MP, CDP #### [address] [place], [place] [address] [employer] Inspector: Hector Jarrett MD Eosinophils/100 WBC (Bld) 3 % Normal 1-4 [facility] Comment on above: Performed By: #### B MP, CDP #### [address] [place], [facility]83 [employer] Inspector: Hector Jarrett MD Erythrocyte distribution width (RBC) [Ratio] 13.0 % Normal 11.8-14.4 [facility] Comment on above: Performed By: #### B MP, CDP #### [address] [place], [place] 5275083 [employer] Inspector: Hector Jarrett MD Hematocrit (Bld) [Volume fraction] 40.7 % Normal 40.7-50.3 [facility] Comment on above: Performed By: #### B MP, CDP #### [address] [place], [place] 1773283 Casino [employer] Inspector: Hector Jarrett MD Hemoglobin (Bld) [Mass/Vol] 13.7 g/dL Normal 13.0-17.0 [facility] Comment on above: Performed By: #### B MP, CDP #### [address] [place], [place] [address]87[address]3 [employer] Gaming Inspector: Hector Jarrett MD Immature granulocytes/100 WBC (Bld) 1 % High 0 [facility] Comment on above: Performed By: #### B MP, CDP #### [facility] [address] [place], [place] [address]383 Casino [employer] Inspector: Hector Jarrett MD Lymphocytes (Bld) [#/Vol] 3.53 10*3/uL Normal 1.10-3.70 [facility] Comment on above: Performed By: #### B MP, CDP #### [facility] [address] [place], [facility]83 [employer] Inspector: Hector Jarrett MD Lymphocytes/100 WBC (Bld) 36 % Normal 24-43 [facility] Comment on above: Performed By: #### B MP, CDP #### [address] [place], [facility]83 [employer] Inspector: Hector Jarrett MD MCH (RBC) [Entitic mass] 32.9 pg Normal 25.2-33.5 [facility] Comment on above: Performed By: #### B MP, CDP #### [address] [place], [place] 5073383 Casino Gaming Inspector: Hector Jarrett MD MCHC (RBC) [Mass/Vol] 33.7 g/dL Normal 28.4-34.8 [facility] Comment on above: Performed By: #### B MP, CDP #### [address] [place], [place] [address]18283 Casino [employer] Inspector: Hector Jrarett MD MCV (RBC) [Entitic vol] 97.8 fL Normal 82.6-102.9 [facility] Comment on above: Performed By: #### B MP, CDP #### [address] [place], [place] [address]3983 Casino Gaming Inspector: Hector Jarrett MD Monocytes (Bld) [#/Vol] 0.78 10*3/uL Normal 0.10-1.20 [facility] Comment on above: Performed By: #### B MP, CDP #### [facility] [address] [place], [place] 339[address]83 Casino [employer] Inspector: Hector Jarrett MD Monocytes/100 WBC (Bld) 8 % Normal 3-12 [facility] Comment on above: Performed By: #### B MP, CDP #### [facility] [address] [place], [facility]83 [employer] Inspector: Hector Jarrett MD Neutrophil (Seg) 51 % Normal 36-65 [facility] Comment on above: Performed By: #### B YOMI, CDP #### [facility] [address] [place], [place] [address] Casino [employer] Inspector: Hector Jarrett MD NRBC Automated 0.0 per 100 WBC Normal 0.0 [facility] Comment on above: Performed By: #### B YOMI, CDP #### [facility] [address] [place], [facility]83 [employer] Inspector: Hector Jarrett MD Platelet mean volume (Bld) [Entitic vol] 8.6 fL Normal 8.1-13.5 [facility] Comment on above: Performed By: #### B YOMI, CDP #### [facility] [address] [place], [place] 1695683 Casino Gaming Inspector: Hector Jarrett MD Platelets (Bld) [#/Vol] 239 10*3/uL Normal 138-453 [facility] Comment on above: Performed By: #### B MP, CDP #### [facility] [address] [place], [place] [address]108[address] Casino [employer] Inspector: Hector Jarrett MD RBC (Bld) [#/Vol] 4.16 10*6/uL Low 4.21-5.77 [facility] Comment on above: Performed By: #### B YOMI, CDP #### [facility] [address] [place], [facility]83 [employer] Inspector: Hector Jarrett MD WBC (Bld) [#/Vol] 9.9 10*3/uL Normal 3.5-11.3 [facility] Comment on above: Performed By: #### B MP, CDP #### [facility] [address] [place] [address] [employer] Inspector: Hector Jarrett MD Auto Diff Performed NOT REPORTED Normal [facility] Comment on above: Performed By: #### B MP, CDP #### [facility] [address] [place] [address] [employer] Inspector: Hector Jarrett MD Platelet Estimate NOT REPORTED Normal [facility] Comment on above: Performed By: #### B MP, CDP #### [facility] [address] [address] [employer] Gaming Inspector: Hector Jarrett MD RBC morphology finding Nom (Bld) NOT REPORTED Normal [facility] Comment on above: Performed By: #### B MP, CDP #### [facility] [address] [place], [facility]83 [employer] Inspector: Hector Jarrett MD WBC Morphology NOT REPORTED Normal [facility] Comment on above: Performed By: #### B MP, CDP #### [facility] [address] [place], [facility]83 [employer] Inspector: Hector Jarrett MD CT ABDOMEN PELVIS WO [...] Merrick Dejesus MD 12/05/19 Final result Normal [facility] CT ABDOMEN PELVIS WO CONTRAS T Additional Contrast? Noneon 12-05-2019 1. No acute intra-abdominal or intrapelvic process. Specifically, no evidence of obstructive uropathy on the current study. 2. There are multiple nonobstructing bilateral kidney stones as above. 3. Dominant lower pole left renal cyst is unchanged. 4. Normal appendix. [facility], [place] EXAMINATION: [facility] ABDOMEN AND PELVIS WITHOUT CONTRAST 12/05/2019 2:17 [...] Tissues: No acute osseous abnormalities are identified. [facility] [place], [place], [employer] Incoming Radiant Results From Fieldbook/Provenance - 12/05/2019 3:03 PM EDT EXAMINATION: CT [...] renal cyst is unchanged. 4. Normal appendix. [place], [place] Metabolic Panelon 12-05-2019 GFR/1.73 sq M predicted among non-blacks MDRD (S/P/Bld) [Vol rate/Area] [place] Comment on above: Average GFR for 50-5 9 years old: 93 mL/min/1.73sq m Chronic Kidney Disease: <60 mL/min/1.73sq m Kidney failure: <15 mL/min/1.73sq m eGFR calculated using average adult body mass. Additional eGFR calculator available at: http://www.[employer].com/multiple_crcl_2012.htm Stage 1: Some kidney damage normal GFR Stage 2: Mild kidney damage GFR 60-89 Stage 3: Moderate kidney damage GFR 30-59 Stage 4: Severe kidney damage GFR 15-29 Stage 5: Severe kidney damage GFR <15 ESRD - chronic treatment by dialysis or transplant Urinalysis w/ Microon 2019 ----- Normal [facility] Comment on above: Performed By: #### U [facility] #### [facility] [address] [place], [place] [address]83 [employer] Inspector: Hector Jarrett MD Acetoacetic Acid,Ur Negative Normal NEG [facility] Comment on above: Performed By: #### U AMIC #### [facility] [address] [place], [place] 377[address]83 [employer] Inspector: Hector Jarrett MD Bacteria TRACE Abnormal NONE [facility] Comment on above: Performed By: #### U AMIC #### [facility] [address] [place], [place] 0[address]83 [employer] Inspector: Hector Jarrett MD Bilirubin, SemiQt,Ur Negative Normal [facility] Comment on above: Performed By: #### U AMIC #### [facility] [address] [place], [place] [phone] [employer] Inspector: Hector Jarrett MD Color (U) YELLOW Normal YEL [facility] Comment on above: Performed By: #### U AMIC #### [facility] [address] [place], [place] 1866[address] [employer] Inspector: Hector Jarrett MD Epithelial cells LM Ql (Urine sed) None Normal 0-5 [facility] Comment on above: Performed By: #### U AMIC #### [facility] [address] [place], [place] [address]12683 [employer] Inspector: Hector Jarrett MD Glucose Ql (U) 3+ Abnormal NEG [facility] Comment on above: Performed By: #### U AMIC #### [facility] [address] [place], [place] [id number] [employer] Inspector: Hector Jarrett MD Hemoglobin, Ur Negative Normal [facility] Comment on above: Performed By: #### U AMIC #### [facility] [address] [place], [place] [address] [employer] Gaming Inspector: Hector Jarrett MD Leukocyte esterase Test strip Ql (U) Negative Normal NEG [facility] Comment on above: Performed By: #### U AMIC #### [facility] [address] [place], [place] [address] [employer] Gaming Inspector: Hector aJrrett MD Nitrite,Ur Negative Normal NEG [facility] Comment on above: Performed By: #### U AMIC #### [facility] [address] [place] [id number] [employer] Gaming Inspector: Hector Jarrett MD PH,Ur 6.0 Normal 5.0-9.0 [facility] Comment on above: Performed By: #### U AMIC #### [facility] [address] [address] [employer] Gaming Inspector: Hector Jarrett MD Protein Ql (U) Negative Normal NEG [facility] Comment on above: Performed By: #### U AMIC #### [facility] [address] [place] [address] [employer] Gaming Inspector: Hector Jarrett MD Spec. [place],Ur 1.020 Normal 1.010-1.020 [facility] Comment on above: Performed By: #### U AMIC #### [facility] [address] [place] [address] [employer] Gaming Inspector: Hector Jarrett MD Turbidity CLEAR Normal CLEAR [facility] Comment on above: Performed By: #### U AMIC #### [facility] [address] [place] [address] [employer] Gaming Inspector: Hector Jarrett MD Urine RBC's 0 TO 2 Normal 0-2 [facility] Comment on above: Performed By: #### U AMIC #### [facility] [address] [place] [id number] Casino Gaming Inspector: Hector Jarrett MD Urine WBC's 0 TO 2 Normal 0-5 [facility] Comment on above: Performed By: #### U AMIC #### [facility] [address] [place], [place] [address] Casino Gaming Inspector: Hector Jarrett MD Urobilinogen,Ur Normal Normal NORM [facility] Comment on above: Performed By: #### U AMIC #### [facility] [address] [place], [place] [id number] [employer] Gaming Inspector: Hector Jarrett MD Amorphous sediment LM Ql (Urine sed) NOT REPORTED Normal [facility] Comment on above: Performed By: #### U AMIC #### [facility] [address] [place] [address] [employer] Gaming Inspector: Hector Jarrett MD Casts NOT REPORTED Normal [facility] Comment on above: Performed By: #### U AMIC #### [facility] [address] [place], [place] [id number] Casino Gaming Inspector: Hector Jarrett MD Comment NOT REPORTED Normal [facility] Comment on above: Performed By: #### U AMIC #### [facility] [address] [place], [place] [id number] [employer] Gaming Inspector: Hector Jarrett MD Crystals LM Nom (Urine sed) NOT REPORTED Normal [facility] Comment on above: Performed By: #### U AMIC #### [facility] [address] [place], [place] [address] [employer] Gaming Inspector: Hector Jarrett MD Epithelial, Renal NOT REPORTED Normal 0 [facility] Comment on above: Performed By: #### U AMIC #### [facility] [address] [place], [place] [id number] [employer] Gaming Inspector: Hector Jarrett MD Mucus Strands NOT REPORTED Normal [facility] Comment on above: Performed By: #### U AMIC #### [facility] [address] [place] [address] [employer] Gaming Inspector: Hector Jarrett MD Other Observations NOT REPORTED Normal NREQ [facility] Comment on above: Performed By: #### U AMIC #### [facility] [address] [place] [address] [employer] Gaming Inspector: Hector Jarrett MD Trichomonas NOT REPORTED Normal NONE [facility] Comment on above: Performed By: #### U AMIC #### [facility] [address] [place] [address] [employer] Gaming Inspector: Hector Jarrett MD Yeast NOT REPORTED Normal NONE [facility] Comment on above: Performed By: #### U AMIC #### [facility] [address] [place] [address] [employer] Gaming Inspector: Hector Jarrett MD Urinalysis with [employer] n 12-05-2019 Amorphous, UA NOT REPORTED None [place], [place] Bacteria, UA TRACE Abnormal None [place] Bilirubin Urine Negative NEGATIVE [place] Casts UA NOT REPORTED /LPF [place] Color, UA YELLOW YELLOW [place] Crystals, UA NOT REPORTED None /HPF [place] Epithelial Cells UA None [place] Glucose, Ur 3+ Abnormal NEGATIVE [place] Interpretation and review of laboratory results Abnormal [place] Ketones Ql (U) Negative NEGATIVE [place] Leukocyte esterase Test strip Ql (U) Negative NEGATIVE [place] Mucus, UA NOT REPORTED None [place] Nitrite, Urine Negative NEGATIVE [place] Other Observations UA NOT REPORTED NOT REQ. M [place], [place] pH, UA 6.0 [place] Protein (U) [Mass/Vol] Negative NEGATIVE [place] RBC (U) [#/Vol] 0 TO 2 [place] Renal Epithelial, UA NOT REPORTED 0 /HPF [place] Specific [place], UA 1.020 [place], [place] Trichomonas, UA NOT REPORTED None [place] Turbidity UA CLEAR CLEAR [place] Urinalysis Comments NOT REPORTED [place] Urine Hgb Negative NEGATIVE [place] Urobilinogen, Urine Normal Normal [place] WBC, UA 0 TO 2 [place] Yeast, UA NOT REPORTED None [facility] [place] [facility] CARDIAC STRESS/REST MARIEL Martins 07-19-2019 [facility] CARDIAC STRESS/REST INJECTION Patient Name: ROXANE BONNER STUDY: MYOCARDIAL PERFUSION STRESS TEST WITH EXERCISE [facility], [address] [place] [address], [address], [place] [address] [facility] Provider: GARRETT KAISER PCP: Dr. Kimani CRAWLEY Supervising provider: PALAK PALMA INDICATION: ABN FUNCTION STUDY,ASCVD W/O ANGINA HISTORY: Gender: M; Age: 58 y/o ; Height: 162.56 cm; Weight: 91.7535104 kg. DM HTN High Cholesterol; Family HX CAD; Currently smoking. PTCA on 2011. COMPARISON: Previous nuclear testing completed [id number] at . ACCESSION NUMBER(S): [id number]; [id number]; [id number] ORDERING CLINICIAN: BRIDGET MUNOZ TECHNIQUE: ONE DAY protocol. Stress injection: Date:07/19/2019, [...] available for comparison. Electronically signed by: MILDRED PALMA MD Normal [facility] Cult,Urine,CCon 01-30-2018 Cult,Urine,CC Specimen Description .CLEAN CATCH URINE Special Requests NOT REPORTED Culture NO GROWTH Report Status FINAL 01/29/2018 Normal [facility] Comment on above: Performed By: #### C ELIANE ####[place] [id number] [place] [id number] Basic Metabolic Profon 01-28 (cont.) Normal [facility] Comment on above: Result Comment: Aver age GFR for 50-59 years old: 93 mL/min/1.73sq mChronic Kidney Disease: <60 mL/min/1.73sq mKidney failure: <15 mL/min/1.73sq meGFR calculated using average adult body mass. Additional eGFR calculator available at:http://[email or web address]/multiple_crcl_2012.htm Anion gap 3 molar conc 15 mmol/L Normal 9-17 [facility] Calcium mass conc 9.4 mg/dL Normal 8.6-10.4 [facility] Chloride molar conc 102 mmol/L Normal 98-107 [facility] CO2 molar conc 23 mmol/L Normal 20-31 [facility] Creatinine mass conc 0.89 mg/dL Normal 0.70-1.20 [facility] GFR, Amer >60 Normal >60 [facility] GFR,non Amer >60 Normal >60 [facility] Glucose mass conc 160 mg/dL High 70-99 [facility] Potassium molar conc 3.9 mmol/L Normal 3.7-5.3 [facility] Sodium molar conc 140 mmol/L Normal 135-144 [facility] Urea nitrogen mass conc 15 mg/dL Normal 6-20 [facility] BUN/CRE Ratio NOT REPORTED Normal 9-20 [facility] Staging: NOT REPORTED Normal [facility] CBC with Diffon 01-28-2018 Abs. Basophil 0.10 k/uL Normal 0.0-0.2 [facility] Abs.Neutrophil (Seg) 5.70 k/uL Normal 1.8-7.7 [facility] Basophils/100 WBC Auto (Bld) 1 % Normal 0-2 [facility] Eosinophils Auto #/vol (Bld) 0.50 10*3/uL High 0.0-0.4 [facility] Eosinophils/100 WBC Auto (Bld) 5 % High 1-4 [facility] Erythrocyte distribution width Auto Ratio (RBC) 13.5 % Normal 12.5-15.4 [facility] Hematocrit Auto Volume Fraction (Bld) 39.6 % Low 41-53 [facility] Hemoglobin mass conc (Bld) 13.5 g/dL Normal 13.5-17.5 [facility] Lymphocytes Auto #/vol (Bld) 4.20 10*3/uL Normal 1.0-4.8 [facility] Lymphocytes/100 WBC Auto (Bld) 36 % Normal 24-44 [facility] MCH Auto Entitic mass (RBC) 33.1 pg Normal 26-34 [facility] MCHC Auto mass conc (RBC) 34.2 g/dL Normal 31-37 [facility] MCV Auto Entitic volume (RBC) 96.9 fL Normal 80-100 [facility] Monocytes Auto #/vol (Bld) 1.00 10*3/uL Normal 0.1-1.2 [facility] Monocytes/100 WBC Auto (Bld) 9 % Normal 2-11 [facility] Neutrophil (Seg) 49 % Normal 36-66 [facility] Platelet mean volume Auto Entitic volume (Bld) 7.4 fL Normal 6.0-12.0 [facility] Platelets Auto #/vol (Bld) 256 10*3/uL Normal 140-450 [facility] RBC Auto #/vol (Bld) 4.08 10*6/uL Low 4.5-5.9 [facility] WBC Auto #/vol (Bld) 11.5 10*3/uL High 3.5-11.0 [facility] Abs.Imm.Granulocyte NOT REPORTED Normal 0.00-0.30 [facility] Auto Diff Performed NOT REPORTED Normal [facility] Immature granulocytes #/vol (Bld) NOT REPORTED Normal 0 [facility] NRBC Automated NOT REPORTED Normal [facility] Platelets Auto #/vol (Bld) NOT REPORTED Normal [facility] RBC morphology finding Nom (Bld) NOT REPORTED Normal [facility] WBC Morphology NOT REPORTED Normal [facility] CT ABDOMEN PELVIS WO CONTRAS Ton 01-28-2018 [...] by:Brendan Lawrence MD01/28/18Edited Result - FINAL Normal [facility] Lipaseon 01-28-2018 Lipase enzyme act/vol 25 U/L Normal 13-60 [facility] Liver Profileon 01-28-2018 Albumin mass conc 4.3 g/dL Normal 3.5-5.2 [facility] Albumin/Globulin mass ratio 1.7 {ratio} Normal 1.0-2.5 [facility] Alkaline Phos 65 U/L Normal 40-129 [facility] ALT enzyme act/vol 24 U/L Normal 5-41 [facility] AST enzyme act/vol 21 U/L Normal <40 [facility] Bilirubin Ql (U) 0.45 mg/dL Normal 0.3-1.2 [facility] Bilirubin, Indirect 0.30 mg/dL Normal 0.00-1.00 [facility] Bilirubin.direct mass conc 0.15 mg/dL Normal <0.31 [facility] Protein mass conc 6.9 g/dL Normal 6.4-8.3 [facility] Globulin Calculated mass conc (S) NOT REPORTED Normal 1.5-3.8 [facility] UA w/Reflex Cultureon 2017 Acetoacetic Acid,Ur TRACE Abnormal NEG [facility] Bilirubin, SemiQt,Ur Negative Normal NEG [facility] Color YELLOW Normal YEL [facility] Glucose,Semi-qnt,Ur Negative Normal NEG [facility] Hemoglobin, Ur LARGE Abnormal NEG [facility] Leuckocyte Esterase SMALL Abnormal NEG [facility] Nitrite,Ur Negative Normal NEG [facility] PH,Ur 6.5 Normal 5.0-8.0 [facility] Protein, Semi-qnt,Ur 1+ Abnormal NEG [facility] Spec. [place],Ur 1.025 Normal 1.005-1.030 [facility] Turbidity SLIGHTLY CLOUDY Abnormal CLEAR [facility] Urobilinogen,Ur Normal Normal NORM [facility] Comment NOT REPORTED Normal [facility] Urinalysis,Microon 8 ----- Normal [facility] Epithelial cells 0 TO 2 Normal 0-5 [facility] Other Observations Culture ordered base d on defined criteria. Abnormal NREQ [facility] RBC Test strip #/vol (U) 5 TO 10 Normal 0-2 [facility] Urine WBC's 10 TO 20 Normal 0-5 [facility] Amorphous Sediment NOT REPORTED Normal NONE [facility] Bacteria NOT REPORTED Normal NONE [facility] Casts NOT REPORTED Normal [facility] Crystals NOT REPORTED Normal NONE [facility] Epithelial, Renal NOT REPORTED Normal 0 [facility] Mucus Strands NOT REPORTED Normal NONE [facility] Trichomonas NOT REPORTED Normal NONE [facility] Yeast NOT REPORTED Normal NONE [facility] Vital Signs Date Time Vital Sign Value Performing Clinician Facility 10-02-2024 14:46-0400 Diastolic blood pressure 60 mm[Hg] Malgorzata Nixonmildredcortes OVERCOILER Work Phone: [facility] 10-02-2024 14:46-0400 Systolic blood pressure 100 mm[Hg] Malgorzata Nixonmildredcortes OVERCOILER Work Phone: [facility] 10-02-2024 14:20-0400 Body temperature 97.81 [degF] Malgorzata Nixonmildredcortes OVERCOILER Work Phone: [facility] 10-02-2024 14:20-0400 Heart rate 84 /min Malgorzata Nixonkyrie OVERCOILER Work Phone: [facility] 10-02-2024 14:20-0400 Respiratory rate 20 /min Malgorzata Holliday OVERCOILER Work Phone: [facility] 10-02-2024 14:20-0400 SaO2% (BldA) [Mass fraction] 95 % Malgorzata Holliday OVERCOILER Work Phone: [facility] 09-25-2024 10:55-0400 Body height 167.6 cm Grant Lozano DPM Work Phone: [facility] 09-25-2024 10:55-0400 Body mass index (BMI) [Ratio] 31.96 kg/m2 Grant Lozano DPM Work Phone: [facility] 09-25-2024 10:55-0400 Body weight 89.81 kg Grant Lozano DPM Work Phone: [facility] 09-25-2024 10:55-0400 Respiratory rate 16 /min Grant Lozano DPM Work Phone: [facility] 09-04-2024 09:46-0400 Body height 167.6 cm Grant Lozano DPM Work Phone: [facility] 09-04-2024 09:46-0400 Body mass index (BMI) [Ratio] 31.96 kg/m2 Grant [place] DPM Work Phone: [facility] 09-04-2024 09:46-0400 Body weight 89.81 kg Grant [place] DPM Work Phone: [facility] 09-04-2024 09:46-0400 Respiratory rate 16 /min Grant [place] DPM Work Phone: [facility] 08-21-2024 11:25-0400 Body height 167.6 cm Grant [place] DPM Work Phone: [facility] 08-21-2024 11:25-0400 Body mass index (BMI) [Ratio] 31.96 kg/m2 Grant [place] DPM Work Phone: [facility] 08-21-2024 11:25-0400 Body weight 89.81 kg Grant Brown DPM Work Phone: [facility] 08-21-2024 11:25-0400 Respiratory rate 18 /min Grant Brown DPM Work Phone: [facility] 08-06-2024 09:22-0400 Body height 167.6 cm Grant Brown DPM Work Phone: [facility] 08-06-2024 09:22-0400 Body mass index (BMI) [Ratio] 31.96 kg/m2 Grant Brown DPM Work Phone: [facility] 08-06-2024 09:22-0400 Body weight 89.81 kg Grant Brown DPM Work Phone: [facility] 08-06-2024 09:22-0400 Respiratory rate 16 /min Grant Brown DPM Work Phone: [facility] 06-25-2024 09:00-0500 Body height 167.6 cm Cris Johnson OVERCOILER Work Phone: [facility] 06-25-2024 09:00-0500 Body mass index (BMI) [Ratio] 31.96 kg/m2 Cris Johnson OVERCOILER Work Phone: [facility] 06-25-2024 09:00-0500 Body temperature 97.3 [degF] Cris Johnson OVERCOILER Work Phone: [facility] 06-25-2024 09:00-0500 Body weight 89.81 kg Cris Johnson OVERCOILER Work Phone: [facility] 06-25-2024 09:00-0500 Diastolic blood pressure 74 mm[Hg] Cris Johnson OVERCOILER Work Phone: [facility] 06-25-2024 09:00-0500 Heart rate 73 /min Cris Johnson OVERCOILER Work Phone: [facility] 06-25-2024 09:00-0500 Respiratory rate 18 /min Cris Johnson OVERCOILER Work Phone: [facility] 06-25-2024 09:00-0500 SaO2% (BldA) [Mass fraction] 97 % Cris Johnson OVERCOILER Work Phone: [facility] 06-25-2024 09:00-0500 Systolic blood pressure 118 mm[Hg] Cris Johnson OVERCOILER Work Phone: [facility] 03-26-2024 08:37-0500 Body height 167.6 cm Cris Johnson OVERCOILER Work Phone: [facility] 03-26-2024 08:37-0500 Body mass index (BMI) [Ratio] 31.64 kg/m2 Cris Johnson OVERCOILER Work Phone: [facility] 03-26-2024 08:37-0500 Body temperature 96.21 [degF] Cris Johnson OVERCOILER Work Phone: [facility] 03-26-2024 08:37-0500 Body weight 88.91 kg Cris Johnson OVERCOILER Work Phone: [facility] 03-26-2024 08:37-0500 Diastolic blood pressure 76 mm[Hg] Cris Johnson OVERCOILER Work Phone: [facility] 03-26-2024 08:37-0500 Respiratory rate 16 /min Cris Johnson OVERCOILER Work Phone: [facility] 03-26-2024 08:37-0500 Systolic blood pressure 120 mm[Hg] Cris Johnson OVERCOILER Work Phone: [facility] 02-13-2024 09:38-0400 Body mass index (BMI) [Ratio] 31.96 kg/m2 Cris Johnson OVERCOILER Work Phone: [facility] 02-13-2024 09:38-0400 Body temperature 97.2 [degF] Cris Johnson OVERCOILER Work Phone: [facility] 02-13-2024 09:38-0400 Body weight 89.81 kg Cris Johnson OVERCOILER Work Phone: [facility] 02-13-2024 09:38-0400 Diastolic blood pressure 78 mm[Hg] Cris Johnson OVERCOILER Work Phone: [facility] 02-13-2024 09:38-0400 Heart rate 72 /min Cris Johnson OVERCOILER Work Phone: [facility] 02-13-2024 09:38-0400 SaO2% (BldA) [Mass fraction] 98 % Cris Johnson OVERCOILER Work Phone: [facility] 02-13-2024 09:38-0400 Systolic blood pressure 120 mm[Hg] Cris Johnson OVERCOILER Work Phone: [facility] 01-26-2024 13:08-0400 Body height 167.6 cm Grant Lozano DPM Work Phone: [facility] 01-26-2024 13:08-0400 Body mass index (BMI) [Ratio] 32.77 kg/m2 Grant Lozano DPM Work Phone: [facility] 01-26-2024 13:08-0400 Body weight 92.08 kg Grant Lozano DPM Work Phone: [facility] 01-26-2024 13:08-0400 Diastolic blood pressure 78 mm[Hg] Grant Lozano DPM Work Phone: [facility] 01-26-2024 13:08-0400 Heart rate 75 /min Grant Lozano DPM Work Phone: [facility] 01-26-2024 13:08-0400 Respiratory rate 18 /min Grant Lozano DPM Work Phone: [facility] 01-26-2024 13:08-0400 Systolic blood pressure 115 mm[Hg] Grant Lozano DPM Work Phone: [facility] 01-05-2024 13:06-0400 Body height 162.6 cm Cris Johnson OVERCOILER Work Phone: [facility] 01-05-2024 13:06-0400 Body mass index (BMI) [Ratio] 34.67 kg/m2 Cris Johnson OVERCOILER Work Phone: [facility] 01-05-2024 13:06-0400 Body temperature 98.8 [degF] Cris Johnson OVERCOILER Work Phone: [facility] 01-05-2024 13:06-0400 Body weight 91.63 kg Cris Johnson OVERCOILER Work Phone: [facility] 01-05-2024 13:06-0400 Diastolic blood pressure 70 mm[Hg] Cris Johnson OVERCOILER Work Phone: [facility] 01-05-2024 13:06-0400 Heart rate 69 /min Cris Louistrick OVERCOILER Work Phone: [facility] Comment on above: 93% O2 01-05-2024 13:06-0400 Systolic blood pressure 112 mm[Hg] Cris Florespatrick OVERCOILER Work Phone: [facility] 06-07-2023 14:31-0500 Body height 167.6 cm Jacinto Marcelino DO Work Phone: [facility] 06-07-2023 14:31-0500 Body mass index (BMI) [Ratio] 33.41 kg/m2 Jacinto Marcelino DO Work Phone: [facility] 06-07-2023 14:31-0500 Body weight 93.89 kg Jacinto Marcelino DO Work Phone: [facility] 06-07-2023 14:31-0500 Diastolic blood pressure 56 mm[Hg] Jacinto Marcelino DO Work Phone: [facility] 06-07-2023 14:31-0500 Heart rate 72 /min Jacinto Marcelino DO Work Phone: [facility] 06-07-2023 14:31-0500 Systolic blood pressure 84 mm[Hg] Jacinto Marcelino DO Work Phone: [facility] 09-29-2022 13:05-0400 Body height 167.64 cm [facility] Work Phone: [facility] 250 DO Work Phone: 09-29-2022 13:05-0400 Body mass index (BMI) [Ratio] 33.41 kg/m2 [facility] Work Phone: [facility] 250 DO Work Phone: 09-29-2022 13:05-0400 Body surface area Derived from formula 2.03 m2 [facility] Work Phone: [facility] 250 DO Work Phone: 09-29-2022 13:05-0400 Body weight 93.9 kg [facility] Work Phone: [facility] 250 DO Work Phone: 09-29-2022 13:05-0400 Diastolic blood pressure 72 mm[Hg] [facility] Work Phone: [facility] 250 DO Work Phone: 09-29-2022 13:05-0400 Heart rate 72 /min [facility] Work Phone: [facility] 250 DO Work Phone: 09-29-2022 13:05-0400 Systolic blood pressure 98 mm[Hg] [facility] Work Phone: [facility] 250 DO Work Phone: 08-18-2022 09:45-0400 Body height 167.64 cm [facility] Work Phone: [facility] 250 DO Work Phone: 08-18-2022 09:45-0400 Body mass index (BMI) [Ratio] 33.41 kg/m2 [facility] Work Phone: [facility] 250 DO Work Phone: 08-18-2022 09:45-0400 Body surface area Derived from formula 2.03 m2 [facility] Work Phone: [facility] 250 DO Work Phone: 08-18-2022 09:45-0400 Body weight 93.9 kg [facility] Work Phone: [facility] 250 DO Work Phone: 08-18-2022 09:45-0400 Diastolic blood pressure 88 mm[Hg] [facility] Work Phone: [facility] 250 DO Work Phone: 08-18-2022 09:45-0400 Heart rate 72 /min [facility] Work Phone: [facility] 250 DO Work Phone: 08-18-2022 09:45-0400 Systolic blood pressure 128 mm[Hg] [facility] Work Phone: [facility] 250 DO Work Phone: 09-07-2021 13:58-0400 Diastolic blood pressure 96 mm[Hg] DO [facility] Work Phone: [facility] 09-07-2021 13:58-0400 Heart rate 74 /min DO [facility] Work Phone: [facility] 09-07-2021 13:58-0400 Systolic blood pressure 135 mm[Hg] DO [facility] Work Phone: [facility] 08-18-2021 09:40-0400 Body height 165.1 cm [facility] Work Phone: [facility] 250 DO Work Phone: 08-18-2021 09:40-0400 Body mass index (BMI) [Ratio] 35.64 kg/m2 [facility] Work Phone: [facility] 250 DO Work Phone: 08-18-2021 09:40-0400 Body surface area Derived from formula 2.04 m2 [facility] Work Phone: [facility] [facility] 250 DO Work Phone: 08-18-2021 09:40-0400 Body weight 97.16 kg Roosevelt P House Work Phone: [facility] 250 DO Work Phone: 08-18-2021 09:40-0400 Diastolic blood pressure 70 mm[Hg] Roosevelt P House Work Phone: [facility] [place] 250 DO Work Phone: 08-18-2021 09:40-0400 Heart rate 64 /min Roosevelt Garcia PANOSOL Work Phone: [facility] [place] 250 DO Work Phone: 08-18-2021 09:40-0400 Systolic blood pressure 110 mm[Hg] Roosevelt Garcia PANOSOL Work Phone: [facility] [place] 250 DO Work Phone: Encounters Encounter Date Encounter Type Care Provider Facility Start: 10-17-2024 End: 10-17-2024 Orders Only Malgorzata Holliday OVERCOILER Work Phone: [facility] Comment on above: Open wounds involvin g multiple regions of upper extremity (Primary Dx) Start: 10-02-2024 End: 10-02-2024 Bamboo flowsheet Malgorzata Holliday OVERCOILER Work Phone: [facility] Start: 10-02-2024 End: 10-02-2024 Bamboo flowsheet Malgorzata Holliday OVERCOILER Work Phone: [facility] Start: 10-02-2024 End: 10-02-2024 Office outpatient visit 25 minutes Malgorzata Holliday OVERCOILER Work Phone: [facility] Comment on above: Type 2 diabetes lady itus with stage 3a chronic kidney disease, without long-term current use of insulin (HCC) ([facility]) (Primary Dx); Type 2 diabetes mellitus with diabetic polyneuropathy, unspecified whether intermediate school teacher insulin use ([facility]); Atherosclerosis of [place] coronary artery of [place] mountain heart without angina pectoris ([facility]); Chronic heart failure with preserved ejection fraction ([facility]); Primary hypertension ([facility]); Gastroesophageal reflux disease, unspecified whether esophagitis present; CKD (chronic kidney disease), symptom management only, stage 3 (moderate) (HCC) ([facility]); Obesity (BMI 30-39.9); Current every day smoker; BREONNA (generalized anxiety disorder) ([facility]); Mixed hyperlipidemia ([facility]); Tobacco dependence; Prostate cancer screening; Type 2 diabetes mellitus with diabetic polyneuropathy ([facility]); Generalized anxiety disorder ([facility]); Gastroesophageal reflux disease without esophagitis; Hyperlipidemia, unspecified ([facility]) Start: 10-02-2024 End: 10-02-2024 ambulatory MALGORZATA HOLLIDAY Not Available Start: 09-25-2024 End: 09-25-2024 Bamboo flowsheet Grant Lozano DPM Work Phone: [facility] Start: 09-25-2024 End: 09-25-2024 Bamboo flowsheet Grant Lozano DPM Work Phone: [facility] Start: 09-25-2024 End: 09-25-2024 Office outpatient visit 15 minutes Grant Lozano DPM Work Phone: [facility] Comment on above: Contusion of left fo ot, initial encounter (Primary Dx); Verruca plantaris; Foot pain, left; Foot pain, right; Type 2 diabetes mellitus with diabetic polyneuropathy, unspecified whether intermediate school teacher insulin use ([facility]) Start: 09-25-2024 End: 09-25-2024 ambulatory GRANT LOZANO Not Available Start: 09-04-2024 End: 09-04-2024 Bamboo flowsheet Grant Lozano DPM Work Phone: [facility] Start: 09-04-2024 End: 09-04-2024 Bamboo flowsheet Grant Lozano DPM Work Phone: [facility] Start: 09-04-2024 End: 09-04-2024 Office outpatient visit 15 minutes Grant Lozano DPM Work Phone: [facility] Comment on above: Contusion of left fo ot, initial encounter (Primary Dx); Verruca plantaris; Foot pain, left; Foot pain, right; Type 2 diabetes mellitus with diabetic polyneuropathy, unspecified whether shelter insulin use ([facility]) Start: 09-04-2024 End: 09-04-2024 ambulatory GRANT LOZANO Not Available Start: 08-21-2024 End: 08-21-2024 Patient encounter procedure Grant Lozano DPM Work Phone: [facility] Comment on above: Verruca plantaris (P rimary Dx); Foot pain, left; Foot pain, right; Hallux rigidus of right foot; Hallux rigidus of left foot; Type 2 diabetes mellitus with diabetic polyneuropathy, unspecified whether shelter insulin use ([facility]) Start: 08-21-2024 End: 08-21-2024 ambulatory GRANT LOZANO Not Available Start: 08-06-2024 End: 08-06-2024 Bamboo flowsheet Grant Lozano DPM Work Phone: [facility] Start: 08-06-2024 End: 08-06-2024 Bamboo flowsheet Grant Lozano DPM Work Phone: [facility] Start: 08-06-2024 End: 08-06-2024 Office outpatient visit 15 minutes Grant Lozano DPM Work Phone: [facility] Comment on above: Neoplasm of uncertai n behavior of skin (Primary Dx); Hallux rigidus of left foot; Hallux rigidus of right foot; Type 2 diabetes mellitus with diabetic polyneuropathy, unspecified whether shelter insulin use ([facility]); Pain due to onychomycosis of toenails of both feet; Verruca plantaris; Foot pain, left; Foot pain, right Start: 08-06-2024 End: 08-06-2024 ambulatory GRANT LOZANO Not Available Start: 06-25-2024 End: 06-25-2024 Bamboo flowsheet Cris Johnson OVERCOILER Work Phone: [facility] Start: 06-25-2024 End: 06-25-2024 Bamboo flowsheet Cris Johnson OVERCOILER Work Phone: [facility] Start: 06-25-2024 End: 06-25-2024 Office outpatient visit 15 minutes Cris Johnson OVERCOILER Work Phone: [facility] Comment on above: Type 2 diabetes lady itus with stage 3a chronic kidney disease, without long-term current use of insulin (HCC) (CMS/HCC) (Primary Dx); Generalized anxiety disorder (CMS/HCC); Type 2 diabetes mellitus with diabetic polyneuropathy (CMS/HCC); Hyperlipidemia, unspecified (CMS/HCC); Primary hypertension (CMS/HCC) Start: 06-25-2024 End: 06-25-2024 ambulatory CRIS JOHNSON Not Available Start: 06-19-2024 End: 06-19-2024 Refill Cris Johnson OVERCOILER Work Phone: [facility] Comment on above: Type 2 diabetes lady itus with diabetic polyneuropathy (CMS/HCC) Start: 06-12-2024 End: 06-12-2024 ambulatory [facility] Ambulatory Start: 04-12-2024 End: 04-20-2024 Telephone encounter Grant Lozano DPM Work Phone: [facility] Start: 03-26-2024 End: 03-26-2024 Bamboo flowsheet Cris Johnson OVERCOILER Work Phone: [facility] Start: 03-26-2024 End: 03-26-2024 Bamboo flowsheet Cris Johnson OVERCOILER Work Phone: [facility] Start: 03-26-2024 End: 03-26-2024 Office outpatient visit 15 minutes Cris Johnson OVERCOILER Work Phone: [facility] Comment on above: Type 2 diabetes lady itus with diabetic polyneuropathy (CMS/HCC); Generalized anxiety disorder (CMS/HCC); BREONNA (generalized anxiety disorder) (CMS/HCC); Type 2 diabetes mellitus with stage 3a chronic kidney disease, without long-term current use of insulin (HCC) (CMS/HCC); Primary hypertension (CMS/HCC); Gastroesophageal reflux disease without esophagitis; Hyperlipidemia, unspecified (CMS/HCC) Start: 03-26-2024 End: 03-26-2024 ambulatory CRIS JOHNSON Not Available Start: 03-05-2024 End: 03-06-2024 Refill Heydi Howell MA [facility] Comment on above: Type 2 diabetes lady itus with diabetic polyneuropathy ([facility]) Start: 02-14-2024 End: 02-14-2024 Refill Cris Johnson OVERCOILER Work Phone: [facility] Comment on above: Generalized anxiety disorder ([facility]) Start: 02-13-2024 End: 02-13-2024 Bamboo flowsheet Cris Johnson OVERCOILER Work Phone: [facility] Start: 02-13-2024 End: 02-13-2024 Bamboo flowsheet Cris Johnson OVERCOILER Work Phone: [facility] Start: 02-13-2024 End: 02-13-2024 Office outpatient visit 15 minutes Cris Johnson OVERCOILER Work Phone: [facility] Comment on above: Primary hypertension ([facility]) (Primary Dx); Gastroesophageal reflux disease without esophagitis; BREONNA (generalized anxiety disorder) ([facility]); Hx of psoriasis Start: 02-13-2024 End: 02-13-2024 ambulatory CRIS JOHNSON Not Available Start: 01-26-2024 End: 01-26-2024 Bamboo flowsheet Grant Lozano DPM Work Phone: [facility] Start: 01-26-2024 End: 01-26-2024 Bamboo flowsheet Grant Lozano DPM Work Phone: [facility] Start: 01-26-2024 End: 01-26-2024 Office outpatient new 30 minutes Grant Lozano DPM Work Phone: [facility] Comment on above: Hallux rigidus of le ft foot (Primary Dx); Type 2 diabetes mellitus with stage 3a chronic kidney disease, without long-term current use of insulin (HCC) (CMS/HCC); Hallux rigidus of right foot; Type 2 diabetes mellitus with diabetic polyneuropathy, unspecified whether shelter insulin use (HCC) (CMS/HCC); Onychomycosis; Toe pain, bilateral Start: 01-26-2024 End: 01-26-2024 ambulatory GRANT LOZANO Not Available Start: 01-05-2024 End: 01-05-2024 Bamboo flowsheet Cris Johnson OVERCOILER Work Phone: [facility] Start: 01-05-2024 End: 01-05-2024 Bamboo flowsheet Cris Johnson OVERCOILER Work Phone: [facility] Start: 01-05-2024 End: 01-05-2024 ambulatory CRIS JOHNSON Not Available Start: 01-05-2024 End: 01-05-2024 Office outpatient visit 25 minutes Cris Johnson OVERCOILER Work Phone: [facility] Comment on above: Primary hypertension (CMS/HCC) (Primary Dx); Type 2 diabetes mellitus with stage 3a chronic kidney disease, without long-term current use of insulin (HCC) (CMS/HCC); Mixed hyperlipidemia (CMS/HCC); Generalized anxiety disorder (CMS/HCC); Current every day smoker; Type 2 diabetes mellitus with diabetic polyneuropathy, without long-term current use of insulin (CMS/HCC); Dysphagia, unspecified type; Choking due to food (regurgitated), initial encounter; BREONNA (generalized anxiety disorder) (CMS/HCC); Smoker Start: 06-07-2023 End: 06-07-2023 Office outpatient visit 25 minutes Jacinto Marcelino DO Work Phone: [facility] Comment on above: Atherosclerosis of n ative coronary artery of [place] mountain heart without angina pectoris; Shortness of breath; Anxiety; Obesity (BMI 30-39.9); Type 2 diabetes mellitus without complication, with long-term current use of insulin (CMS/HCC); Current every day smoker Start: 12-14-2022 End: 12-15-2022 ambulatory ROOSEVELT CRAWLEY Facility:[facility] Start: 09-29-2022 Office outpatient vi sit 15 minutes Roosevelt Crawley Work Phone: [facility] 250 DO Work Phone: Start: 08-27-[address] Roosevelt Crawley Facility:90 Start: 08-27-2022 End: 08-27-2022 ambulatory W Bean Marcelino Facility:[facility] Start: 08-25-2022 End: 08-25-2022 ambulatory Tree Marcelino Facility:[facility] Start: 08-25-2022 End: 08-25-2022 ambulatory DO Roosevelt Crawley Work Phone: [facility] Work Phone: Start: 08-25-2022 End: 08-25-2022 Patient encounter procedure DO Roosevelt Crawley Work Phone: [facility]-Pre-Surgical Testing Work Phone: Start: 08-18-2022 Office outpatient vi sit 25 minutes Roosevelt Crawley Work Phone: [facility] 250 DO Work Phone: Start: 08-18-[address] Roosevelt Crawley Facility: Start: 04-19-2022 End: 04-20-[address] ROOSEVELT CRAWLEY Facility: Start: 09-17-2021 Chart Update Roosevelt Hernandes e Work Phone: [facility] 250 DO Work Phone: Start: 09-07-2021 End: 09-07-2021 ambulatory Bridget Munoz Facility:[facility] Start: 09-07-2021 End: 09-07-2021 Patient encounter procedure DO Roosevelt Crawley Work Phone: [facility]-Electrodiagnosti cs Start: 08-18-2021 Office outpatient vi sit 25 minutes Roosevelt Crawley Work Phone: [facility] 250 DO Work Phone: Start: 07-30-2021 End: 07-31-[address] ROOSEVELT CRAWLEY Facility:[facility]1 Start: 02-17-2021 Message Roosevelt Garcia Hous e Work Phone: [facility] 250 DO Work Phone: Start: 10-28-2020 End: 10-31-2020 ambulatory SR ROOSEVELT Garcia [facility] Start: 10-28-2020 End: 10-30-2020 Subsequent hospital visit by physician Roberto Ultrasound Room [facility] Ultrasound Comment on above: Stage 3a chronic kid china disease (HCC) Start: 10-23-2020 End: 10-24-2020 ambulatory ROOSEVELT Garcia [facility] Start: 10-23-2020 End: 10-23-2020 Subsequent hospital visit by physician Sr Crawley DO Work Phone: [facility] Comment on above: Stage 3a chronic kid china disease (HCC); Nephrolithiasis Start: 09-25-2020 End: 09-26-2020 [facility] Start: 09-25-2020 End: 09-25-2020 Subsequent hospital visit by physician Sr Crawley DO Work Phone: [facility] Laboratory Start: 09-25-2020 End: 09-28-2020 [facility] Start: 09-25-2020 End: 09-27-2020 Subsequent hospital visit by physician Roberto Xr Dr Room 2 [facility] Laboratory Comment on above: Renal calculus; PAULA (acute kidney injury) ([facility]); Dysuria Renal calculus Start: 12-05-2019 End: 12-08-2019 [facility] Start: 12-05-2019 End: 2019 Subsequent hospital visit by physician Roberto Lab Drawing Room [facility] Laboratory Comment on above: Renal colic Start: 04-04-2018 Patient encounter procedure BRIDGET MUNOZ Facility:[id number] Start: 01-28-2018 End: 01-28-2018 Emergency department patient visit JINNY LOPEZ [facility] Procedures Date Procedure Procedure Detail Performing Clinician Start: 10-02-2024 Hemoglobin glycosylated a1c Malgorzata Mg OVERCOILER Work Phone: Start: 03-26-2024 Hemoglobin glycosylated a1c Cris Elizabeth OVERCOILER Work Phone: Start: 04-19-[address] GAGE CRAWLEY Comment on above: Performed By: #### P SAD #### [facility] [address] [place] [address] Dr. Amarjit Sanchez Start: 10-28-2020 Us retroperitoneal [...] dip stick/tabl et reagent auto microscopy William Leavitt Parsell BALANCE WHEEL HAND FILER - PRINTER SLOTTER OPERATOR Work Phone: Start: 09-25-2020 Radiologic exam abdo men 1 view William W Parsell BALANCE WHEEL HAND FILER - PRINTER SLOTTER OPERATOR Work Phone: Start: 09-25-2020 Basic metabolic pane l calcium total William W Parsell BALANCE WHEEL HAND FILER - PRINTER SLOTTER OPERATOR Work Phone: Start: 12-05-2019 Culture bacterial quanttative colony count urine WILLIAMJACIEL JUDDELL Start: 12-05-2019 Urnls dip stick/tabl et reagent auto microscopy William Leavitt Parsell Work Phone: Start: 12-05-2019 Ct abdomen & pelvis w/o contrast material WILLIAMJACIEL JUDDELL Start: 12-05-2019 Blood count complete auto&auto difrntl wbc WILLIAM JUDDELL Start: 12-05-2019 Ct abdomen & pelvis w/o contrast material William Tree Parsell Work Phone: Start: 12-05-2019 Basic metabolic pane [...] LOPEZ Start: 01-28-2018 INSERT PERIPHERAL IV DA NALLELYDUNIA LOPEZ Cardiac catheterization Selam bart Garcia PANOSOL Work Phone: Nasal sinus procedure Gage gricelda [employer] Work Phone: Operative procedure on hand Roosevelt Threadflip Work Phone: Percutaneous translu luna coronary angioplasty Roosevelt [facility] Work Phone: Renal lithotripsy Roosevelt [facility] Work Phone: Surgical procedure Roosevelt [facility] Work Phone: Comment on above: stent indications; Total colonoscopy Roosevelt [facility] Work Phone: Plan of Treatment Date Care Activity Detail Author Start: 02-12-2025 Screening for malign ant neoplasm of colon Colorectal Cancer Screening [facility] Comment on above: Postponed from 12/06 (Patient Refused) Start: 01-02-2025 Hemoglobin A1c measurement Diabetes: Hemoglobin A1C [facility] Start: 11-05-2024 End: 11-05-2024 Patient encounter procedure 11/05/2024 1:40 PM EDT Office Visit [facility] [address] [place] [address] Malgorzata Holliday, ACE [address] [place] [address] [facility] Start: 10-22-2024 End: 10-22-2024 Patient encounter procedure 10/22/2024 10:50 AM EDT Office Visit [facility] [address] [place] [phone] Grant Lozano, DPM [address] [address] [facility] Start: 10-15-2024 End: 10-15-2024 Patient encounter procedure 10/15/2024 10:30 AM EDT Office Visit [facility] [address] [place] [phone] Grant Lozano, DPM [address] [address] [facility] Start: 10-09-2024 End: 10-09-2024 Patient encounter procedure 10/09/2024 10:40 AM EDT Office Visit [facility] [address] [place] [phone] Grant Lozano, DPM [address] [address] [facility] Start: 10-02-2024 End: 10-02-2025 CBC W Auto Differential panel - Blood CBC and differential Lab Routine Atherosclerosis of [place] coronary artery of [place] heart without angina pectoris (CMS/HCC) Chronic heart failure with preserved ejection fraction (CMS/HCC) Gastroesophageal reflux disease, unspecified whether esophagitis present Expected: 10/02/2024 (Approximate), Expires: 10/02/2025 [facility] Work Phone: Comment on above: Expected: 10/02/2024 (Approximate), Expires: 10/02/2025 Start: 10-02-2024 End: 10-02-2025 Comprehensive metabolic 2000 panel - Serum or Plasma Comprehensive metabolic panel Lab Routine Chronic heart failure with preserved ejection fraction (CMS/HCC) Primary hypertension (CMS/HCC) CKD (chronic kidney disease), symptom management only, stage 3 (moderate) (HCC) (CMS/HCC) Obesity (BMI 30-39.9) Mixed hyperlipidemia (CMS/HCC) Expected: 10/02/2024 (Approximate), Expires: 10/02/2025 [facility] Comment on above: Expected: 10/02/2024 (Approximate), Expires: 10/02/2025 Start: 10-02-2024 End: 10-02-2025 Lipid 1996 panel - Serum or Plasma Lipid panel Lab Routine Mixed hyperlipidemia (CMS/HCC) Expected: 10/02/2024 (Approximate), Expires: 10/02/2025 [facility] Comment on above: Expected: 10/02/2024 (Approximate), Expires: 10/02/2025 Start: 10-02-2024 End: 10-02-2025 Microalbumin/Creatinine panel in random Urine Microalbumin / creatinine, urine ratio Lab Routine Type 2 diabetes mellitus with diabetic polyneuropathy, unspecified whether shelter insulin use ([facility]) Primary hypertension (CMS/HCC) Expected: 10/02/2024 (Approximate), Expires: 10/02/2025 [facility] Comment on above: Expected: 10/02/2024 (Approximate), Expires: 10/02/2025 Start: 10-02-2024 End: 10-02-2024 Patient encounter procedure [facility] Comment on above: Type 2 diabetes lady itus with diabetic polyneuropathy, unspecified whether intermediate school teacher insulin use (CMS/HCC) (Primary Dx); Atherosclerosis of [place] coronary artery of [place] heart without angina pectoris (CMS/HCC); Chronic heart failure with preserved ejection fraction (CMS/HCC); Primary hypertension (CMS/HCC); Gastroesophageal reflux disease, unspecified whether esophagitis present; CKD (chronic kidney disease), symptom management only, stage 3 (moderate) (HCC) (CMS/HCC); Obesity (BMI 30-39.9); Current every day smoker; BREONNA (generalized anxiety disorder) (CMS/HCC); Mixed hyperlipidemia (CMS/HCC); Tobacco dependence; Prostate cancer screening Start: 10-02-2024 End: 10-02-2025 Prostate specific Ag [Mass/volume] in Serum or Plasma PSA Lab Routine Prostate cancer screening Expected: 10/02/2024 (Approximate), Expires: 10/02/2025 [facility] Comment on above: Expected: 10/02/2024 (Approximate), Expires: 10/02/2025 Start: 10-02-2024 End: 10-02-2025 Urinalysis complete panel - Urine Urinalysis with reflex microscopic (clean catch) Lab Routine Type 2 diabetes mellitus with diabetic polyneuropathy, unspecified whether intermediate school teacher insulin use (CMS/HCC) Primary hypertension (CMS/HCC) Expected: 10/02/2024 (Approximate), Expires: 10/02/2025 [facility] Comment on above: Expected: 10/02/2024 (Approximate), Expires: 10/02/2025 Start: 09-25-2024 End: 09-25-2024 Patient encounter procedure [facility] Comment on above: Verruca plantaris (P rimary Dx); Foot pain, left; Foot pain, right; Type 2 diabetes mellitus with diabetic polyneuropathy, unspecified whether shelter insulin use (CMS/HCC); Contusion of left foot, initial encounter Start: 09-24-2024 End: 09-24-2024 Patient encounter procedure [facility] Start: 09-22-2024 Hemoglobin A1c measurement Diabetes: Hemoglobin A1C [facility] Start: 09-04-2024 End: 09-04-2024 Patient encounter procedure 09/04/2024 10:00 AM EDT Office Visit [facility] [address] [place] [phone] Grant Lozano DPM [address] [address] Verruca plantaris (Primary Dx); Foot pain, left; Foot pain, right; Type 2 diabetes mellitus with diabetic polyneuropathy, unspecified whether shelter insulin use (CMS/HCC) [facility] Comment on above: Verruca plantaris (P rimary Dx); Foot pain, left; Foot pain, right; Type 2 diabetes mellitus with diabetic polyneuropathy, unspecified whether intermediate school teacher insulin use ([facility]) Start: 08-21-2024 End: 08-21-2024 Patient encounter procedure 08/21/2024 11:40 AM EDT Office Visit [facility] [address] [place] [phone] Grant Lozano DPM [address] [facility] [address] [place] [address] [facility] Start: 06-26-2024 Hemoglobin A1c measurement Diabetes: Hemoglobin A1C [facility] Start: 06-25-2024 End: 06-25-2024 Patient encounter procedure [facility] Comment on above: Arrived Start: 06-12-2024 End: 06-12-2024 Patient encounter procedure 06/12/2024 2:30 PM EST Office Visit [facility] [address] [facility] [address] [place] [address] Jacinto Marcelino DO [address] [facility] [address] [place] [address] [facility] Start: 05-30-2024 Urine screening for protein Diabetes: Urine Protein Screening [facility] Start: 04-12-2024 End: 04-12-2024 Patient encounter procedure 04/12/2024 1:10 PM EST Office Visit [facility] [address] [facility] [address] [place] [phone] Grant Lozano DPM [address] [facility] [address] [place] [address] [facility] Start: 03-26-2024 End: 03-26-2025 Hemoglobin A1c/Hemoglobin.total in Blood Hemoglobin A1c Lab Routine Type 2 diabetes mellitus with stage 3a chronic kidney disease, without long-term current use of insulin (HCC) ([facility]) Expected: 03/26/2024 (Approximate), Expires: 03/26/2025 [facility] Work Phone: Comment on above: Expected: 03/26/2024 (Approximate), Expires: 03/26/2025 Start: 03-26-2024 End: 03-26-2024 Patient encounter procedure 03/26/2024 9:00 AM EST Office Visit [facility] [address] [place] [phone] Cris Johnson NP [address] [place] [phone] [facility] Start: 02-21-2024 Hemoglobin A1c measurement Diabetes: Hemoglobin A1C [facility] Start: 02-13-2024 End: 02-13-2024 Patient encounter procedure [facility] Comment on above: Arrived Start: 01-26-2024 End: 01-26-2024 Patient encounter procedure 01/26/2024 1:20 PM EDT Office Visit [facility] [address] [facility] [address] [place] [id number] Grant Lozano DPLeonard [address] [facility] [address] [place] [address] Type 2 diabetes mellitus with stage 3a chronic kidney disease, without long-term current use of insulin (HCC) ([facility]) [facility] Comment on above: Type 2 diabetes lady itus with stage 3a chronic kidney disease, without long-term current use of insulin (HCC) ([facility]) Start: 01-08-2024 Influenza vaccination Influenza Vacc ine (#1) [facility] Start: 01-05-2024 End: 01-04-2025 RF Upper gastrointestinal tract and Small bowel Single view W contrast PO FL upper GI double contrast w KUB Imaging Routine Dysphagia, unspecified type Choking due to food (regurgitated), initial encounter Expected: 01/05/2024, Expires: 01/04/2025 [facility] Work Phone: Comment on above: Expected: 01/05/2024 , Expires: 01/04/2025 Start: 03-30-2023 FUV, Provider: Jacinto Marcelino, Status: Pen, Time: 10:20 AM FUV, Provider: Jacinto Marcelino, Status: Pen, Time: 10:20 AM [facility] 250 DO Work Phone: Start: 01-07-2023 COVID-19 Vaccine ( season) COVID-19 Vaccine ( season) [facility] Start: 09-29-2022 FUV, Provider: Glenda Gao, Status: Pen, Time: 9:30 AM FUV, Provider: Glenda Gao, Status: Pen, Time: 9:30 AM [facility] 250 DO Work Phone: Start: 08-27-2022 SURGNONUH, Provider: Jacinto Marcelino, Status: Pen, Time: 10:00 AM SURGNON, Provider: Jacinto Marcelino, Status: Pen, Time: 10:00 AM [facility] 250 DO Work Phone: Start: 08-17-2022 FUV, Provider: Bridget Munoz, Status: Pen, Time: 10:00 AM FUV, Provider: Bridget Munoz, Status: Pen, Time: 10:00 AM [facility] 250 DO Work Phone: Start: 10-23-2021 Creatinine measurement Creatinine mo [facility] [place] Work Phone: Start: 10-23-2021 Potassium monitoring Potassium monit [facility] [place] Work Phone: Start: 09-25-2021 Creatinine measurement Creatinine mo [facility] [place] Work Phone: Start: 09-25-2021 Potassium monitoring Potassium monit [facility] [place] Work Phone: Start: 09-23-2021 End: 09-23-2021 Patient encounter procedure 09/23/2021 Office Visit Urology Ludwig Arango MD [address] [facility], [address] [place] [id number] [phone] [facility] Start: 09-07-2021 Radionuclide myocard ial perfusion stress study NM laura perf SPECT rest & str [facility] Start: 08-21-2021 FUV, Provider: Bridget Munoz, Status: Pen, Time: 9:00 AM FUV, Provider: Bridget Munoz, Status: Pen, Time: 9:00 AM [facility] 250 DO Work Phone: Start: 01-07-2021 Influenza vaccination Flu vacc ine (Season Ended) [facility] Work Phone: Start: 12-04-2020 Creatinine measurement Creatinine mo [place], [place] Start: 12-04-2020 Potassium monitoring Potassium monit [place], [place] Start: 11-20-2020 End: 11-20-2020 Patient encounter procedure 11/20/2020 Office Visit Nephrology Pratik Miranda MD [address] [place], [facility] Start: 10-10-2020 End: 10-10-2020 Patient encounter procedure 10/10/2020 Office Visit Nephrology Pratik Miranda MD [address] [place], [facility] Start: 06-09-2020 End: 06-09-2020 Office Visit 06/09/2020 Office Visit Urology Ludwig Arango MD [address] [facility], [address] [place] [address] [facility] Start: 01-08-2020 Influenza vaccination Flu vaccine (# 1) [place], [place] Start: 01-28-2019 Creatinine measurement Creatinine mo [place], [place] Start: 01-28-2019 Potassium monitoring Potassium monit [place], [place] Start: 12-06-2014 Screening for malign ant neoplasm of lung Low dose CT lung screening [place], [place] Start: 12-06-2009 Screening for malign ant neoplasm of colon Colon cancer screen colonoscopy [place], [place] Start: 12-06-2009 Shingles Vaccine (1 of 2) De La Cruz gles Vaccine (1 of 2) [place], [place] Start: 12-06-2009 Zoster Vaccines (1 of 2) Zoster Vacc regla (1 of 2) [facility] Start: 1999 Diabetes screen Diabetes screen [place], [place] Start: 12-06-1981 DTaP/Tdap/Td Vaccine s (1 - Tdap) DTaP/Tdap/Td Vaccines (1 - Tdap) [facility] Start: 12-06-1978 DTaP/Tdap/Td vaccine (1 - Tdap) DTaP/Tdap/Td vaccine (1 - Tdap) [place], [place] Start: 12-06-1978 Urine screening for protein Diabetes: Urine Protein Screening [facility] Start: 12-06-1977 Hepatitis C screening Hepatitis C Sc reening [facility] Start: 12-06-1974 HIV screening HIV screen [place], [place] Start: 12-06-1969 Diabetic foot examination Diabetes: Foot Exam [facility] Start: 12-06-1969 Glaucoma screening Diabetes: R etinopathy Screening [facility] Start: 12-06-1969 Lipid panel Lipid screen [place], [place] Start: 12-06-1965 Pneumococcal 0-64 ye ars Vaccine (1 of 1 - PPSV23) Pneumococcal 0-64 years Vaccine (1 of 1 - PPSV23) [place], [place] Start: 12-06-1965 Pneumococcal 0-64 ye ars Vaccine (1 of 2 - PPSV23) Pneumococcal 0-64 years Vaccine (1 of 2 - PPSV23) [facility] Work Phone: Start: 12-06-1965 Pneumococcal Vaccine : Pediatrics (0 to 5 Years) and At-Risk Patients (6 to 64 Years) (1 - PCV) Pneumococcal Vaccine: Pediatrics (0 to 5 Years) and At-Risk Patients (6 to 64 Years) (1 - PCV) [facility] Start: 12-06-1960 MMR Vaccines (1 of 1 - Standard series) MMR Vaccines (1 of 1 - Standard series) [facility] Start: 1959 Hemoglobin A1c measurement Diabetes: Hemoglobin A1C [facility] Start: 1959 Hepatitis C screening Hepatitis C sc yam[place] [employer], [place] Start: 1959 HIV screening HIV Screening [facility] Start: 1959 Lipid panel Lipid Panel [facility] Start: 1959 Screening for malign ant neoplasm of colon [facility] Start: 1960 Yearly Adult Physical Yearly Adult P hysical [facility] End: 10-23-2020 DEVONTE Screen with Reflex DEVONTE Screen with Reflex Lab Routine Stage 3a chronic kidney disease (HCC) 1 Occurrences starting 10/23/2020 until 10/23/2020 [employer] Phone: Comment on above: 1 Occurrences starti ng 10/23/2020 until 10/23/2020 DEVONTE Screen with Reflex DEVONTE Scree n with Reflex Lab Routine Stage 3a chronic kidney disease (HCC) 10/23/2020 8:04 AM EDT [employer] Phone: End: 12-05-2019 Culture, Urine Culture, Urine Microbiology Routine Renal colic 1 Occurrences starting 12/05/2019 until 12/05/2019 [employer] Comment on above: 1 Occurrences starti ng 12/05/2019 until 12/05/2019 [facility] [place] End: 09-25-2020 Culture, Urine Culture, Urine Microbiology Routine Dysuria 1 Occurrences starting 09/25/2020 until 09/25/2020 [employer] Phone: Comment on above: 1 Occurrences starti ng 09/25/2020 until 09/25/2020 Electrophoresis Prot ein, Serum without Reflex to Immunofixation Electrophoresis Protein, Serum without Reflex to Immunofixation Lab Routine Stage 3a chronic kidney disease (HCC) 10/23/2020 8:04 AM EDT [employer] Phone: End: 10-23-2020 Immunofixation serum profile Immunofixation serum profile Lab Routine Stage 3a chronic kidney disease (HCC) 1 Occurrences starting 10/23/2020 until 10/23/2020 [employer] Phone: Comment on above: 1 Occurrences starti ng 10/23/2020 until 10/23/2020 Immunofixation serum profile Immunofixation serum profile Lab Routine Stage 3a chronic kidney disease (HCC) 10/23/2020 8:04 AM [facility] Work Phone: Protein Electrophore sis, Urine Protein Electrophoresis, Urine Lab Routine Stage 3a chronic kidney disease (HCC) 10/23/2020 8:05 AM [facility] Work Phone: Immunizations Immunization Date Immunization Notes Care Provider [facility] 02-13-2024 influenza, seasonal, injectable, preservative free Malgorzata Holliday OVERCOIL[employer] Work Phone: [facility] 01-11-2023 influenza, injectabl e, quadrivalent, preservative free Jacinto Marcelino DO Work Phone: [facility] Work Phone: 01-11-2023 influenza virus vaccine, unspecified formulation Cris Johnson OVERCOIL[employer] Work Phone: [facility] 02-20-2022 influenza, injectabl e, quadrivalent, preservative free [facility] Work Phone: [facility] 250 DO Work Phone: 02-20-2022 Pfizer COVID-19 Vac Bivalent 30 MCG/0.3ML Intramuscular Suspension [place] [facility] [place] Work Phone: [facility] 02-20-2022 Pfizer Purple Cap SARS-CoV-2 Jacinto Marcelino DO Work Phone: [facility] Work Phone: 01-16-2021 influenza, injectabl e, quadrivalent, preservative free [facility] [place] Work Phone: [facility] 250 DO Work Phone: 08-21-2020 COVID-19, Pfizer, PF , 30mcg/0.3mL House DO Work Phone: [facility] 07-30-2020 COVID-19, Pfizer, PF , 30mcg/0.3mL Sr House DO Work Phone: [facility] 02-07-2020 influenza virus vaccine, unspecified formulation Roosevelt P House Work Phone: [facility] 250 DO Work Phone: 02-07-2020 influenza, seasonal, injectable Cris Florespatrick OVERCOILER Work Phone: [facility] 05-09-2006 influenza virus vaccine, unspecified formulation Roosevelt P House Work Phone: -[facility] 250 DO Work Phone: Payers Date Payer Category Payer Medicaid [employer] [place] [id number] 2023-Present [address] [place] [address] [id number] 2023 Private Health Insurance [facility] [id number] 2021 Self-pay [id number] 2018 Unknown [facility] [employer] [facility] [id number] 2018-Present [phone] CLAIMS DEPARTMENT [address] [place] [address] [id number] 2018 Unknown 2018 Medicaid [id number] 1959 Unknown [id number] 2.16.840.1.833722.3.579.2. 355 1959 Unknown [id number] 2.16.840.1.691569.3.579.2. 176 1959 Unknown [id number] 2.16.840.1.889527.3.579.2. 173 1959 Unknown [id number] 2.16.840.1.422043.3.579.2. 173 1959 Unknown [id number] 2.16.840.1.310385.3.579.2. 173 1959 Unknown [id number] 2.16.840.1.830533.3.579.2. 173 1959 Unknown [id number] 2.16.840.1.515654.3.579.2. 173 1959 Unknown [id number] 2.16.840.1.110091.3.579.2. 173 1959 Unknown [id number] 2.16.840.1.619947.3.579.2. 173 1959 Unknown [id number] 2.16.840.1.910104.3.579.2. 173 1959 Unknown [id number] 2.16.840.1.871204.3.579.2. 593 1959 Unknown [id number] 2.16.840.1.196372.3.579.2. 593 1959 Unknown [id number] 2.16.840.1.645444.3.579.2. 356 1959 Unknown [id number] 2.16.840.1.384194.3.579.2. 356 1959 Unknown [id number] 2.16.840.1.862183.3.579.2. 718 1959 Unknown [id number] 2.16.840.1.969188.3.579.2. 1244 1959 Unknown [id number] 2.16.840.1.623180.3.579.2. 1258 1959 Unknown [id number] 2.16.840.1.204705.3.579.2. 1259 1959 Unknown [id number] 2.16.840.1.127304.3.579.2. 1258 1959 Unknown [id number] 2.16.840.1.981361.3.579.2. 1259 1959 Unknown [id number] 2.16.840.1.986910.3.579.2. 1258 1959 Unknown [id number] 2.16.840.1.885538.3.579.2. 9 1959 Unknown [id number] 2.16.840.1.583153.3.579.2. 1258 1959 Unknown [id number] 2.16.840.1.741489.3.579.2. 1258 1959 Unknown [id number] 2.16.840.1.480421.3.579.2. 1258 1959 Unknown [id number] 2.16.840.1.037754.3.579.2. 1259 1959 Unknown [id number] 1.2.840.868071.1.13.239.2. 7.3.366576.315 Private Health Insurance [id number] Unknown [id number] 2.16840.1.583006.3.579.2. 531 Unknown [id number] 2.16840.1.536251.3.579.2. 531 Unknown [id number] 2.16.840.1.293303.3.579.2. 531 Social History Date Type Detail Facility Start: 12-05-2019 End: 01-05-2024 Tobacco smoking status NHIS Current every day smoker [facility] History of tobacco use Cigarette Smoker M [facility] Start: 12-05-2019 End: 01-05-2024 Cigarettes smoked current (pack per day) - Reported [facility] Start: 12-05-2019 End: 06-07-2023 Tobacco use and exposure Never used [facility] Start: 12-05-2019 End: 10-02-2024 Alcohol intake Current drinker of alcohol (finding) [place], [place] Start: 04-25-2018 Tobacco Comment last smoked at 0530 [place], [place] Start: 01-31-2018 Alcohol Comment rare [place] Start: 1959 Sex Assigned At Not on file M [place], [place] Start: 1960 Sex Assigned At Male F [facility] Start: 08-25-2022 Tobacco smoking stat us NHIS Smoker (finding) [facility] Start: 06-07-2023 End: 01-05-2024 Tobacco use panel [facility] Start: 06-07-2023 Alcohol Comment occasional beer [facility] Work Phone: Start: 05-28-2023 End: 06-07-2023 Exposure to SARS-CoV-2 (event) Not sure [facility] History of tobacco use Passive smoker [facility] How often to you hav e a drink containing alcohol? Monthly or less [facility] How many standard drinks containing alcohol do you have on a typical day? 1 or 2 [facility] How often do you hav e 6 or more drinks on 1 occasion? Never [facility] Start: 04-08-2023 Tobacco Comment Moderate cigar ette smoker (10-19/day) [facility] Start: 04-08-2023 Alcohol Comment caffeine: 3-4 cups per day 5 hour energy drink ;3 -4 times a week [facility] Start: 10-01-2023 Gender identity Identifies as male gender (finding) [facility] Medical Equipment Procedure Code Equipment Code Equipment Origin al Text Equipment Identifier Dates Stent Uret Hydrp l Coat W/O [id number] Start: 02-02-2018 Clinical Notes 10-23-2020 to 10-02-2024 EDNA RICHMOND - 10/02/2024 2:00 PM EDKaylynn Holliday NP - 10/02/2024 2:00 PM Robles Holliday NP - 10/02/2024 7:31 AM KDoneil Mg, ACE - 10/02/2024 7:30 AM EDTPatient Instructions Note Date & Type Note Facility 10-02-2024 History of Presen t illness Narrative Dexcom in right arm Pt usually averages at 129-170s Pt feels very tired and fatigue today Images from the original note were not included. Roxane Bonner is a 63 y.o. male presents with chief complaint of No chief complaint on file. HPI: Diabetes He presents for his follow-up diabetic visit. He has type 2 diabetes mellitus. His disease course has been fluctuating. Hypoglycemia symptoms include dizziness. Pertinent negatives for hypoglycemia include no nervousness/anxiousness, seizures or tremors. Associated symptoms include fatigue, foot paresthesias, polydipsia and polyuria. Pertinent negatives for diabetes include no visual change. Hypoglycemia complications include required assistance. Symptoms are worsening. Diabetic complications include heart disease and peripheral neuropathy. Risk factors for coronary artery disease include diabetes mellitus, dyslipidemia, hypertension, male sex, obesity, sedentary lifestyle and tobacco exposure. Current diabetic treatment includes oral agent (triple therapy). He is compliant with treatment most of the time. His overall blood glucose range is 140-180 mg/dl. An MARIAH inhibitor/angiotensin II receptor rashawn is being taken. 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 SUBJECTIVE: MEDICATIONS: Current Outpatient Medications Medication Instructions aspirin (ASPIRIN) 81 mg, Daily Blood Pressure Monitoring (Blood Pressure Cuff) misc 1 each, Does not apply, 2 times daily Continuous Glucose Controller Repairer And Tester (Dexcom G7 Controller Repairer And Tester) device 1 each, Does not apply, Continuous Continuous Glucose Sensor (Dexcom G7 Sensor) misc 1 each, Does not apply, Continuous empagliflozin (JARDIANCE) 25 mg, Oral, Daily escitalopram (LEXAPRO) 20 mg, Oral, Daily glimepiride (AMARYL) 2 mg, Oral, Daily before breakfast hydrOXYzine HCl (ATARAX) 25 mg, Oral, Every 8 hours PRN lisinopril 10 mg, Oral, Daily metFORMIN (GLUCOPHAGE) 1,000 mg, Oral, 2 times daily with meals Methylcobalamin (V07-JZSICD PO) 1,000 mg, Daily metoprolol succinate XL (TOPROL-XL) 25 mg, Daily nitroglycerin (Nitrodur) 0.2 MG/HR patch 1 patch, Daily nitroglycerin (NITROSTAT) 0.4 mg, Every 5 min PRN omeprazole (PRILOSEC) 20 mg, Oral, Daily before breakfast, Do not crush or chew. pregabalin (LYRICA) 150 mg, Oral, 3 times daily rosuvastatin (CRESTOR) 20 mg, Oral, Daily ALLERGIES: Allergies Allergen Reactions Penicillins Sulfa Antibiotics REVIEW OF SYMPTOMS: Review of Systems Constitutional: Positive for fatigue. Negative for activity change, appetite change and unexpected weight change. HENT: Negative for ear pain, nosebleeds, sneezing, trouble swallowing and voice change. Eyes: Negative for pain, discharge and visual disturbance. Respiratory: Negative for apnea, chest tightness and wheezing. Cardiovascular: Negative for leg swelling. Gastrointestinal: Negative for abdominal distention, blood in stool, constipation and diarrhea. Genitourinary: Negative for decreased urine volume, difficulty urinating, dysuria and hematuria. Skin: Negative for color change. Neurological: Positive for dizziness. Negative for tremors and seizures. Psychiatric/Behavioral: Negative for agitation, decreased concentration, hallucinations, self-injury and suicidal ideas. The patient is not nervous/anxious. Hematological: Negative for adenopathy. Does not bruise/bleed easily. Endocrine: Positive for polydipsia and polyuria. Negative for cold intolerance and heat intolerance. Allergic/Immunologic: Negative for environmental allergies and food allergies. PAST MEDICAL HISTORY Past Medical History: Diagnosis Date Chronic diastolic CHF (congestive heart failure) ([facility]) CKD (chronic kidney disease), symptom management only, stage 3 (moderate) (HCC) ([facility]) DM II (diabetes mellitus, type II), controlled ([facility]) Elevated cholesterol ([facility]) Fracture RT LF BREONNA (generalized anxiety disorder) ([facility]) Heart disease History of medical problems cyst on cheek HLD (hyperlipidemia) (CMS/HCC) Hypertension (CMS/HCC) Kidney stones Neuropathy of foot Smoking Type 2 diabetes mellitus with peripheral neuropathy (CMS/HCC) Type 2 diabetes mellitus with stage 3 chronic kidney disease, without long-term current use of insulin, unspecified whether stage 3a or 3b CKD (HCC) (CMS/HCC) Past Surgical History: Procedure Laterality Date CARDIAC SURGERY Stent CYST REMOVAL cyst on cheek LITHOTRIPSY x2 OTHER SURGICAL HISTORY Right open reduction internal fixation; Disease:RT LF fracture family history includes Cancer in his brother and sister; Diabetes in his father; Heart disease in his father; Hyperlipidemia in his father; Hypertension in his father; Stroke in his father; Thyroid disease in his father. OBJECTIVE: Visit Vitals BP 100/60 (BP Location: Left arm, Patient Position: Sitting, BP Cuff Size: Large adult) Pulse 84 Temp 97.8 F (Temporal) Resp 20 SpO2 95% Smoking Status Every Day Physical Exam Vitals and nursing note reviewed. Constitutional: Appearance: Normal appearance. HENT: Head: Normocephalic. Right Ear: External ear normal. Left Ear: External ear normal. Nose: Nose normal. Mouth/Throat: Mouth: Mucous membranes are moist. Pharynx: Oropharynx is clear. Eyes: Extraocular Movements: Extraocular movements intact. Conjunctiva/sclera: Conjunctivae normal. Cardiovascular: Rate and Rhythm: Normal rate and regular rhythm. Pulses: Normal pulses. Heart sounds: Normal heart sounds. Pulmonary: Effort: Pulmonary effort is normal. Breath sounds: Normal breath sounds. Abdominal: General: Bowel sounds are normal. Palpations: Abdomen is soft. Musculoskeletal: Cervical back: Neck supple. Skin: General: Skin is warm and dry. Capillary Refill: Capillary refill takes 2 to 3 seconds. Neurological: General: No focal deficit present. Mental Status: He is alert. Psychiatric: Mood and Affect: Mood normal. Behavior: Behavior normal. Thought Content: Thought content normal. Judgment: Judgment normal. ASSESSMENT AND PLAN: No follow-ups on file. Problem List Items Addressed This Visit Atherosclerosis of [place] coronary artery without angina pectoris ([facility]) Meds: asa, statin, bl rashawn, SGLT 2, statin Relevant Orders CBC and differential RESOLVED: Current every day smoker The patient has been advised of the risks of continued smoking: stroke, NV, all forms of cancer, lung disease, and . Options for quitting smoking include: cold turkey, hypnosis, acupuncture, nicotine replacement meds (gum, lozenges, and patches), Buproprion, and Varenicline. At this time pt is encouraged to evaluate their goals for wanting to quit smoking, and reach out to provider when ready to start this process Type 2 diabetes mellitus with stage 3a chronic kidney disease, without long-term current use of insulin (HCC) ([facility]) Check blood sugars daily, notify if <70 or >200. Take medications (pills or insulin) as directed. Monitor for s/s of hypoglycemia (sweaty, dizziness, nausea, vomiting, or shakiness). Watch for increase in thirst, urination, or appetite. Inspect feet frequently monitoring for open wounds , and also recommend yearly eye exam. Pt should attempt to remain as physically active as chronic conditions allow, as well as trying to follow a diet low in carbohydrates, and simple sugars. Current meds: asa, statin, jardiance, statin, metfromin, PACHECO A1c: 8.5% 10/02/24 Hypoglycemia 50-60 is happening between 11pm-4am, takes meds PACHECO (states has been taking BID, not daily) takes it 11pm w metfromin and does not eat Explained how PACHECO works , for now will order once a day Add trulicity in denies any pancreatitis of medullary thyroid cancer or neuro endocrine tumor Advised of side effects from med Relevant Medications metFORMIN (Glucophage) 1000 MG tablet Dulaglutide (Trulicity) 0.75 MG/0.5ML solution auto-injector Hyperlipidemia ([facility]) On statin therapy Check labs yearly and prn dose changes Relevant Orders Comprehensive metabolic panel Lipid panel Hypertension ([facility]) Please check blood pressure daily and record DASH diet Limit caffeine Take medication as directed Contact office if chest pain, pressure, dizziness, shortness of breath, swelling legs Recommend slow position changes Current meds: mariah, b rashawn Relevant Orders Comprehensive metabolic panel Microalbumin / creatinine, urine ratio Urinalysis with reflex microscopic (clean catch) BREONNA (generalized anxiety disorder) ([facility]) Current meds: atarax prn, lexapro PHQ 9=6 BREONNA 7=13 Chronic heart failure with preserved ejection fraction ([facility]) Current meds: asa, jardiance, mariah, b rashawn, statin Relevant Orders CBC and differential Comprehensive metabolic panel Obesity (BMI 30-39.9) Discussed with patient their BMI (actual, verses recommended). We have also discussed lifestyle modifications: attempts to perform physical activity as chronic conditions allow, also to monitor dietary intake: increasing protein/fruits/veggies and lowering carb intake (unless contraindicated). Limit sodas, juices, and sugary drinks. Relevant Orders Comprehensive metabolic panel Type 2 diabetes mellitus with diabetic polyneuropathy (CMS/HCC) - Primary Freq foot inspections, proper fitiing shoes and socks Adequate DM control Lyrica OARRS Relevant Medications empagliflozin (Jardiance) 25 MG glimepiride (Amaryl) 2 MG tablet metFORMIN (Glucophage) 1000 MG tablet Other Relevant Orders Microalbumin / creatinine, urine ratio Urinalysis with reflex microscopic (clean catch) POCT glycosylated hemoglobin (Hb A1C) docked device (Completed) CKD (chronic kidney disease), symptom management only, stage 3 (moderate) (HCC) (CMS/HCC) Avoid nephrotoxic drugs when possible Goal: adeuquate DM and HTN control Relevant Orders Comprehensive metabolic panel Acid reflux Recommendations: freq small meals, nothing to eat or drink at least 2 hours prior to bed, limit caffeine, alcohol, as well as spicy foods Meds to limit or avoid if possible: NSAIDS Elevate HOB if possible Current meds: PPI Relevant Medications omeprazole (PriLOSEC) [address] capsule Other Relevant Orders CBC and differential Tobacco dependence The patient has been advised of the risks of continued smoking: stroke, NV, all forms of cancer, lung disease, and . Options for quitting smoking include: cold turkey, hypnosis, acupuncture, nicotine replacement meds (gum, lozenges, and patches), Buproprion, and Varenicline. At this time pt is encouraged to evaluate their goals for wanting to quit smoking, and reach out to provider when ready to start this process Prostate cancer screening Check labs Relevant Orders PSA Other Visit Diagnoses Generalized anxiety disorder (CMS/HCC) Relevant Medications escitalopram (Lexapro) 20 MG tablet Hyperlipidemia, unspecified (CMS/HCC) Relevant Medications rosuvastatin (Crestor) 20 MG tablet Other Relevant Orders Comprehensive metabolic panel Lipid panel Associated Problem(s): Prostate cancer screening Check labs Associated Problem(s): Tobacco dependence The patient has been advised of the risks of continued smoking: stroke, NV, all forms of cancer, lung disease, and . Options for quitting smoking include: cold turkey, hypnosis, acupuncture, nicotine replacement meds (gum, lozenges, and patches), Buproprion, and Varenicline. At this time pt is encouraged to evaluate their goals for wanting to quit smoking, and reach out to provider when ready to start this process Associated Problem(s): Hyperlipidemia (CMS/HCC) On statin therapy Check labs yearly and prn dose changes Associated Problem(s): BREONNA (generalized anxiety disorder) (CMS/HCC) Current meds: atarax prn, lexapro PHQ 9=6 BREONNA 7=13 Associated Problem(s): Current every day smoker (Resolved 10/02/2024) The patient has been advised of the risks of continued smoking: stroke, NV, all forms of cancer, lung disease, and . Options for quitting smoking include: cold turkey, hypnosis, acupuncture, nicotine replacement meds (gum, lozenges, and patches), Buproprion, and Varenicline. At this time pt is encouraged to evaluate their goals for wanting to quit smoking, and reach out to provider when ready to start this process Associated Problem(s): Type 2 diabetes mellitus with stage 3a chronic kidney disease, without long-term current use of insulin (HCC) (CMS/[facility]) Check blood sugars daily, notify if <70 or >200. Take medications (pills or insulin) as directed. Monitor for s/s of hypoglycemia (sweaty, dizziness, nausea, vomiting, or shakiness). Watch for increase in thirst, urination, or appetite. Inspect feet frequently monitoring for open wounds , and also recommend yearly eye exam. Pt should attempt to remain as physically active as chronic conditions allow, as well as trying to follow a diet low in carbohydrates, and simple sugars. Current meds: asa, statin, jardiance, statin, metfromin, PACHECO A1c: 8.5% 10/02/24 Hypoglycemia 50-60 is happening between 11pm-4am, takes meds PACHECO (states has been taking BID, not daily) takes it 11pm w metfromin and does not eat Explained how PACHECO works , for now will order once a day Add trulicity in denies any pancreatitis of medullary thyroid cancer or neuro endocrine tumor Advised of side effects from med Associated Problem(s): Obesity (BMI 30-39.9) Discussed with patient their BMI (actual, verses recommended). We have also discussed lifestyle modifications: attempts to perform physical activity as chronic conditions allow, also to monitor dietary intake: increasing protein/fruits/veggies and lowering carb intake (unless contraindicated). Limit sodas, juices, and sugary drinks. Associated Problem(s): CKD (chronic kidney disease), symptom management only, stage 3 (moderate) (HCC) ([facility]) Avoid nephrotoxic drugs when possible Goal: adeuquate DM and HTN control Associated Problem(s): Acid reflux Recommendations: freq small meals, nothing to eat or drink at least 2 hours prior to bed, limit caffeine, alcohol, as well as spicy foods Meds to limit or avoid if possible: NSAIDS Elevate HOB if possible Current meds: PPI Associated Problem(s): Hypertension (CMS/HCC) Please check blood pressure daily and record DASH diet Limit caffeine Take medication as directed Contact office if chest pain, pressure, dizziness, shortness of breath, swelling legs Recommend slow position changes Current meds: mariah, b rashawn Associated Problem(s): Chronic heart failure with preserved ejection fraction (CMS/HCC) Current meds: asa, jardiance, mariah, b rashawn, statin Associated Problem(s): Atherosclerosis of [place] coronary artery without angina pectoris (CMS/HCC) Meds: asa, statin, bl rashawn, SGLT 2, statin Associated Problem(s): Type 2 diabetes mellitus with diabetic polyneuropathy (CMS/HCC) Freq foot inspections, proper fitiing shoes and socks Adequate DM control Lyrica OARRS documented in this encounter [facility] 10-02-2024 Instructions Malgorzata Holliday NP - 10/02/2024 2:00 PM EDT Check blood pressure twice a day if continues under 100/60 call office Get labs: fasting 8 hours Will add either ozempic, mounjaro, or truliticity once a week: may causing abd pain, nausea, vomiting call my office. These medications will cause you to eat less, feel full sooner documented in this encounter [facility] 09-25-2024 History of Presen t illness Narrative Patient: Roxane Bonner : 1960 PCP: Ajay Gates MD SUBJECTIVE Patient presents today for follow up of skin lesion/neoplasm of unknown origin to the left and right foot Pt states that previous treatment of acid tx with some improvement Pt rates pain the pain on a 1-10 scale an intensity of 4 Pt presents today for followup. Patient is DM2 with history of peripheral neuropathy Patient also has recent history of contusion to the right hallux and states positive improvement negative pain Allergies: Allergies Allergen Reactions Penicillins Sulfa Antibiotics Past Medical History: Past Medical History: Diagnosis Date Chronic diastolic CHF (congestive heart failure) ([facility]) CKD (chronic kidney disease), symptom management only, stage 3 (moderate) (HCC) (CMS/HCC) DM II (diabetes mellitus, type II), controlled (CMS/HCC) Elevated cholesterol (CMS/HCC) Fracture RT LF BREONNA (generalized anxiety disorder) ([facility]/HCC) Heart disease History of medical problems cyst on cheek HLD (hyperlipidemia) (CMS/HCC) Hypertension (CMS/HCC) Kidney stones Neuropathy of foot Smoking Type 2 diabetes mellitus with peripheral neuropathy ([facility]/HCC) Type 2 diabetes mellitus with stage 3 chronic kidney disease, without long-term current use of insulin, unspecified whether stage 3a or 3b CKD (HCC) (CMS/[facility]) Medications: Current Outpatient Medications: ASPIRIN 81 MG chewable tablet, Chew 81 mg in the morning., Disp: , Rfl: Blood Pressure Monitoring (Blood Pressure Cuff) misc, 1 each in the morning and 1 each before bedtime., Disp: 1 each, Rfl: 0 Continuous Glucose Controller Repairer And Tester (Dexcom G7 Controller Repairer And Tester) device, 1 each continuously, Disp: 1 each, Rfl: 0 Continuous Glucose Sensor (Dexcom G7 Sensor) misc, 1 each continuously, Disp: 3 each, Rfl: 11 empagliflozin (Jardiance) 25 MG, Take 1 tablet (25 mg) by mouth Daily, Disp: 90 tablet, Rfl: 1 escitalopram (Lexapro) 20 MG tablet, Take 1 tablet (20 mg) by mouth Daily, Disp: 30 tablet, Rfl: 2 glimepiride (Amaryl) 2 MG tablet, Take 1 tablet (2 mg) by mouth in the morning. Take before meals., Disp: 90 tablet, Rfl: 0 hydrOXYzine HCl (Atarax) 25 MG tablet, Take 1 tablet (25 mg) by mouth every 8 (eight) hours if needed for itching, Disp: 120 tablet, Rfl: 3 isosorbide mononitrate ER (Imdur) 30 MG 24 hr tablet, Take 30 mg by mouth in the morning., Disp: , Rfl: lisinopril 10 MG tablet, Take 1 tablet (10 mg) by mouth Daily, Disp: 90 tablet, Rfl: 1 metFORMIN (Glucophage) 1000 MG tablet, Take 1 tablet (1,000 mg) by mouth in the morning and 1 tablet (1,000 mg) in the evening. Take with meals., Disp: 180 tablet, Rfl: 1 Methylcobalamin (V37-OYPFBQ PO), Take 1,000 mg by mouth 1 (one) time each day, Disp: , Rfl: metoprolol succinate XL (Toprol-XL) 25 MG 24 hr tablet, Take 25 mg by mouth Daily, Disp: , Rfl: nitroglycerin (Nitrodur) 0.2 MG/HR patch, Place 1 patch on the skin Daily, Disp: , Rfl: nitroglycerin (Nitrostat) 0.4 MG SL tablet, Place 0.4 mg under the tongue every 5 (five) minutes if needed for chest pain, Disp: , Rfl: omeprazole (PriLOSEC) [address] capsule, Take 1 capsule (20 mg) by mouth in the morning. Take before meals. Do not crush or chew.., Disp: 30 capsule, Rfl: 2 pregabalin (Lyrica) 150 MG capsule, Take 1 capsule (150 mg) by mouth in the morning and 1 capsule (150 mg) in the evening and 1 capsule (150 mg) before bedtime. Do not start before June 29, 2024., Disp: 270 capsule, Rfl: 0 rosuvastatin (Crestor) 20 MG tablet, Take 1 tablet (20 mg) by mouth Daily, Disp: 100 tablet, Rfl: 1 Social History: Social History Socioeconomic History Marital status: Unmarried Spouse name: Not on file Number of children: Not on file Years of education: Not on file Highest education level: Not on file Occupational History Not on file Tobacco Use Smoking status: Every Day Current packs/day: 1.00 Types: Cigarettes Passive exposure: Current Smokeless tobacco: Not on file Tobacco comments: Moderate cigarette smoker (10-19/day) Vaping Use Vaping status: Never Used Substance and Sexual Activity Alcohol use: Yes Comment: caffeine: 3-4 cups per day 5 hour energy drink ;3 -4 times a week Drug use: Defer Sexual activity: Defer Other Topics Concern Not on file Social History Narrative Not on file Social Drivers of Health Financial Resource Strain: Not on file Food Insecurity: Not on file Transportation Needs: Not on file Physical Activity: Not on file Stress: Not on file Social Connections: Not on file Intimate Partner Violence: Not on file Housing Stability: Not on file ROS: Gastrointestinal: denies abdominal pain, ulcers, or changes in appetite or bowel habits Musculoskeletal: Positive generalized arthritis to joints and denies loss of strength. Cardiovascular: denies CP, palpitations, irregular rhythms OBJECTIVE LE EXAM: DERM: Elongated thick yellow crumbly nails digits 1 through 10. Positive hair growth to bilateral feet. Bony prominence 1st MPJ regions bilaterally Nummular lesion measuring at the left and right mid arch regions measuring 0.1 cm x 0.1 cm. Left great toenail has area of blackening underneath the nail with continue outgrowing of nail with negative drainage or erythema and lesion has been moving distally to end of toe VASC: Palpable pedal pulses bilaterally NEURO: 5.07 Mullin Geraldine monofilament test intact to digits and forefoot bilaterally 125Hz tuning fork diminished to 1st MPJ bilaterally ORTHO: Positive pain on palpation to toenails of the left 1,2,3,4,5 toes and right 1,2,3,4,5 toes Range motion of 1st MPJ less than 65 degrees dorsiflexion bilaterally Positive pain on palpation to bilateral foot lesions Positive pain on palpation left great toenail ASSESSMENT 1. Verruca plantaris 2. Foot pain, left 3. Foot pain, right 4. Type 2 diabetes mellitus with diabetic polyneuropathy, unspecified whether intermediate school teacher insulin use ([facility]) 5. Contusion of left foot, initial encounter PLAN Patient observe any changes or lifting and nail contact Podiatry Application of salinocaine acid medication to lesion/lesions located at right foot Informed pt of risks and benefits of procedure including high reoccurence rate, infection, pain and consent given. Application of DSD post procedure. Application of salinocaine acid medication to lesion/lesions located at left foot Informed pt of risks and benefits of procedure including high reoccurence rate, infection, pain and consent given. Application of DSD post procedure. Grant Lozano DPM documented in this encounter [facility] 08-21-2024 History of Presen t illness Narrative Patient: Roxane Bonner : 1960 PCP: Ajay Gates MD SUBJECTIVE Patient presents today for follow up of skin lesion/neoplasm of unknown origin to the left and right foot Pt states that previous treatment of acid tx with some improvement Pt rates pain the pain on a 1-10 scale an intensity of 3 Pt presents today for followup. Patient is DM2 with history of peripheral neuropathy Allergies: Allergies Allergen Reactions Penicillins Sulfa Antibiotics Past Medical History: Past Medical History: Diagnosis Date Chronic diastolic CHF (congestive heart failure) ([facility]) CKD (chronic kidney disease), symptom management only, stage 3 (moderate) (HCC) ([facility]) DM II (diabetes mellitus, type II), controlled ([facility]) Elevated cholesterol ([facility]) Fracture RT LF BREONNA (generalized anxiety disorder) ([facility]) Heart disease History of medical problems cyst on cheek HLD (hyperlipidemia) ([facility]) Hypertension ([facility]) Kidney stones Neuropathy of foot Smoking Type 2 diabetes mellitus with peripheral neuropathy ([facility]) Type 2 diabetes mellitus with stage 3 chronic kidney disease, without long-term current use of insulin, unspecified whether stage 3a or 3b CKD (HCC) ([facility]) Medications: Current Outpatient Medications: ASPIRIN 81 MG chewable tablet, Chew 81 mg in the morning., Disp: , Rfl: Blood Pressure Monitoring (Blood Pressure Cuff) misc, 1 each in the morning and 1 each before bedtime., Disp: 1 each, Rfl: 0 Continuous Glucose Controller Repairer And Tester (Dexcom G7 Controller Repairer And Tester) device, 1 each continuously, Disp: 1 each, Rfl: 0 Continuous Glucose Sensor (Dexcom G7 Sensor) misc, 1 each continuously, Disp: 3 each, Rfl: 11 empagliflozin (Jardiance) 25 MG, Take 1 tablet (25 mg) by mouth Daily, Disp: 90 tablet, Rfl: 1 escitalopram (Lexapro) 20 MG tablet, Take 1 tablet (20 mg) by mouth Daily, Disp: 30 tablet, Rfl: 2 glimepiride (Amaryl) 2 MG tablet, Take 1 tablet (2 mg) by mouth in the morning. Take before meals., Disp: 90 tablet, Rfl: 0 hydrOXYzine HCl (Atarax) 25 MG tablet, Take 1 tablet (25 mg) by mouth every 8 (eight) hours if needed for itching, Disp: 120 tablet, Rfl: 3 isosorbide mononitrate ER (Imdur) 30 MG 24 hr tablet, Take 30 mg by mouth in the morning., Disp: , Rfl: lisinopril 10 MG tablet, Take 1 tablet (10 mg) by mouth Daily, Disp: 90 tablet, Rfl: 1 metFORMIN (Glucophage) 1000 MG tablet, Take 1 tablet (1,000 mg) by mouth in the morning and 1 tablet (1,000 mg) in the evening. Take with meals., Disp: 180 tablet, Rfl: 1 Methylcobalamin (M21-USDHRB PO), Take 1,000 mg by mouth 1 (one) time each day, Disp: , Rfl: metoprolol succinate XL (Toprol-XL) 25 MG 24 hr tablet, Take 25 mg by mouth Daily, Disp: , Rfl: nitroglycerin (Nitrodur) 0.2 MG/HR patch, Place 1 patch on the skin Daily, Disp: , Rfl: nitroglycerin (Nitrostat) 0.4 MG SL tablet, Place 0.4 mg under the tongue every 5 (five) minutes if needed for chest pain, Disp: , Rfl: omeprazole (PriLOSEC) [address] capsule, Take 1 capsule (20 mg) by mouth in the morning. Take before meals. Do not crush or chew.., Disp: 30 capsule, Rfl: 2 pregabalin (Lyrica) 150 MG capsule, Take 1 capsule (150 mg) by mouth in the morning and 1 capsule (150 mg) in the evening and 1 capsule (150 mg) before bedtime. Do not start before June 29, 2024., Disp: 270 capsule, Rfl: 0 rosuvastatin (Crestor) 20 MG tablet, Take 1 tablet (20 mg) by mouth Daily, Disp: 100 tablet, Rfl: 1 Social History: Social History Socioeconomic History Marital status: Unmarried Spouse name: Not on file Number of children: Not on file Years of education: Not on file Highest education level: Not on file Occupational History Not on file Tobacco Use Smoking status: Every Day Current packs/day: 1.00 Types: Cigarettes Passive exposure: Current Smokeless tobacco: Not on file Tobacco comments: Moderate cigarette smoker (10-19/day) Vaping Use Vaping status: Never Used Substance and Sexual Activity Alcohol use: Yes Comment: caffeine: 3-4 cups per day 5 hour energy drink ;3 -4 times a week Drug use: Defer Sexual activity: Defer Other Topics Concern Not on file Social History Narrative Not on file Social Drivers of Health Financial Resource Strain: Not on file Food Insecurity: Not on file Transportation Needs: Not on file Physical Activity: Not on file Stress: Not on file Social Connections: Not on file Intimate Partner Violence: Not on file Housing Stability: Not on file ROS: Gastrointestinal: denies abdominal pain, ulcers, or changes in appetite or bowel habits Musculoskeletal: Positive generalized arthritis to joints and denies loss of strength. Cardiovascular: denies CP, palpitations, irregular rhythms OBJECTIVE LE EXAM: DERM: Elongated thick yellow crumbly nails digits 1 through 10. Positive hair growth to bilateral feet. Bony prominence 1st MPJ regions bilaterally Nummular lesion measuring at the left and right mid arch regions measuring 0.08 cm x 0.1 cm. VASC: Palpable pedal pulses bilaterally NEURO: 5.07 Mullin Geraldine monofilament test intact to digits and forefoot bilaterally 125Hz tuning fork diminished to 1st MPJ bilaterally ORTHO: Positive pain on palpation to toenails of the left 1,2,3,4,5 toes and right 1,2,3,4,5 toes Range motion of 1st MPJ less than 65 degrees dorsiflexion bilaterally Positive pain on palpation to bilateral foot lesions ASSESSMENT 1. Verruca plantaris 2. Foot pain, left 3. Foot pain, right 4. Hallux rigidus of right foot 5. Hallux rigidus of left foot 6. Type 2 diabetes mellitus with diabetic polyneuropathy, unspecified whether intermediate school teacher insulin use ([facility]) PLAN Application of salinocaine acid medication to lesion/lesions located at right foot Informed pt of risks and benefits of procedure including high reoccurence rate, infection, pain and consent given. Application of DSD post procedure. Application of salinocaine acid medication to lesion/lesions located at left foot Informed pt of risks and benefits of procedure including high reoccurence rate, infection, pain and consent given. Application of DSD post procedure. Grant Lozano DPM documented in this encounter [facility] 08-06-2024 History of Presen t illness Narrative Patient: Roxane Bonner : 1960 PCP: Ajay Gates MD SUBJECTIVE This is a 63 y.o. male that presents today with a CC of elongated, thick nails. Pt states nails have been elongated and thick for many years and cause pain with ambulation in shoegear. Pt has tried previous treatment with minimal relief. Pt presents today for nail care and treatment. Patient is DM2 with history of peripheral neuropathy Patient also presents today with painful growth and lesions to bilateral feet that been present for the past few weeks. Denies any treatment states pain up to 11/15 Allergies: Allergies Allergen Reactions Penicillins Sulfa Antibiotics Past Medical History: Past Medical History: Diagnosis Date Chronic diastolic CHF (congestive heart failure) ([facility]) CKD (chronic kidney disease), symptom management only, stage 3 (moderate) (HCC) ([facility]) DM II (diabetes mellitus, type II), controlled ([facility]) Elevated cholesterol ([facility]) Fracture RT LF BREONNA (generalized anxiety disorder) ([facility]) Heart disease History of medical problems cyst on cheek HLD (hyperlipidemia) ([facility]) Hypertension ([facility]) Kidney stones Neuropathy of foot Smoking Type 2 diabetes mellitus with peripheral neuropathy ([facility]) Type 2 diabetes mellitus with stage 3 chronic kidney disease, without long-term current use of insulin, unspecified whether stage 3a or 3b CKD (HCC) ([facility]) Medications: Current Outpatient Medications: ASPIRIN 81 MG chewable tablet, Chew 81 mg in the morning., Disp: , Rfl: Blood Pressure Monitoring (Blood Pressure Cuff) misc, 1 each in the morning and 1 each before bedtime., Disp: 1 each, Rfl: 0 Continuous Glucose Controller Repairer And Tester (Dexcom G7 Controller Repairer And Tester) device, 1 each continuously, Disp: 1 each, Rfl: 0 Continuous Glucose Sensor (Dexcom G7 Sensor) misc, 1 each continuously, Disp: 3 each, Rfl: 11 empagliflozin (Jardiance) 25 MG, Take 1 tablet (25 mg) by mouth Daily, Disp: 90 tablet, Rfl: 1 escitalopram (Lexapro) 20 MG tablet, Take 1 tablet (20 mg) by mouth Daily, Disp: 30 tablet, Rfl: 2 glimepiride (Amaryl) 2 MG tablet, Take 1 tablet (2 mg) by mouth in the morning. Take before meals., Disp: 90 tablet, Rfl: 0 hydrOXYzine HCl (Atarax) 25 MG tablet, Take 1 tablet (25 mg) by mouth every 8 (eight) hours if needed for itching, Disp: 120 tablet, Rfl: 3 isosorbide mononitrate ER (Imdur) 30 MG 24 hr tablet, Take 30 mg by mouth in the morning., Disp: , Rfl: lisinopril 10 MG tablet, Take 1 tablet (10 mg) by mouth Daily, Disp: 90 tablet, Rfl: 1 metFORMIN (Glucophage) 1000 MG tablet, Take 1 tablet (1,000 mg) by mouth in the morning and 1 tablet (1,000 mg) in the evening. Take with meals., Disp: 180 tablet, Rfl: 1 Methylcobalamin (Y54-[id number] PO), Take 1,000 mg by mouth 1 (one) time each day, Disp: , Rfl: metoprolol succinate XL (Toprol-XL) 25 MG 24 hr tablet, Take 25 mg by mouth Daily, Disp: , Rfl: nitroglycerin (Nitrodur) 0.2 MG/HR patch, Place 1 patch on the skin Daily, Disp: , Rfl: nitroglycerin (Nitrostat) 0.4 MG SL tablet, Place 0.4 mg under the tongue every 5 (five) minutes if needed for chest pain, Disp: , Rfl: omeprazole (PriLOSEC) [address] capsule, Take 1 capsule (20 mg) by mouth in the morning. Take before meals. Do not crush or chew.., Disp: 30 capsule, Rfl: 2 pregabalin (Lyrica) 150 MG capsule, Take 1 capsule (150 mg) by mouth in the morning and 1 capsule (150 mg) in the evening and 1 capsule (150 mg) before bedtime. Do not start before June 29, 2024., Disp: 270 capsule, Rfl: 0 rosuvastatin (Crestor) 20 MG tablet, Take 1 tablet (20 mg) by mouth Daily, Disp: 100 tablet, Rfl: 1 Social History: Social History Socioeconomic History Marital status: Unmarried Spouse name: Not on file Number of children: Not on file Years of education: Not on file Highest education level: Not on file Occupational History Not on file Tobacco Use Smoking status: Every Day Current packs/day: 1.00 Types: Cigarettes Passive exposure: Current Smokeless tobacco: Not on file Tobacco comments: Moderate cigarette smoker (10-19/day) Vaping Use Vaping status: Never Used Substance and Sexual Activity Alcohol use: Yes Comment: caffeine: 3-4 cups per day 5 hour energy drink ;3 -4 times a week Drug use: Defer Sexual activity: Defer Other Topics Concern Not on file Social History Narrative Not on file Social Drivers of Health Financial Resource Strain: Not on file Food Insecurity: Not on file Transportation Needs: Not on file Physical Activity: Not on file Stress: Not on file Social Connections: Not on file Intimate Partner Violence: Not on file Housing Stability: Not on file ROS: Gastrointestinal: denies abdominal pain, ulcers, or changes in appetite or bowel habits Musculoskeletal: Positive generalized arthritis to joints and denies loss of strength. Cardiovascular: denies CP, palpitations, irregular rhythms OBJECTIVE LE EXAM: DERM: Elongated thick yellow crumbly nails digits 1 through 10. Positive hair growth to bilateral feet. Bony prominence 1st MPJ regions bilaterally Nummular lesion measuring at the left and right mid arch regions measuring 0.1 cm x 0.1 cm. VASC: Palpable pedal pulses bilaterally NEURO: 5.07 Mullin Geraldine monofilament test intact to digits and forefoot bilaterally 125Hz tuning fork diminished to 1st MPJ bilaterally ORTHO: Positive pain on palpation to toenails of the left 1,2,3,4,5 toes and right 1,2,3,4,5 toes Range motion of 1st MPJ less than 65 degrees dorsiflexion bilaterally Positive pain on palpation to bilateral foot lesions ASSESSMENT 1. Hallux rigidus of left foot 2. Hallux rigidus of right foot 3. Type 2 diabetes mellitus with diabetic polyneuropathy, unspecified whether intermediate school teacher insulin use ([facility]) 4. Pain due to onychomycosis of toenails of both feet 5. Neoplasm of uncertain behavior of skin 6. Verruca plantaris 7. Foot pain, left 8. Foot pain, right PLAN Discussed proper foot care with patient today. Debride nails in length and thickness digits 1 through 10 Patient educated today on proper diabetic foot care including monitoring feet daily for any signs of infection openings in the skin or irregularities to both feet. Patient had a diabetic neurological exam today to both their feet and discussed proper shoe gear. Discussed condition in detail with patient today and discussed conservative treatments and possible excisional biopsy of lesion in the future for pathological diagnosis of specimen. Patient may take [id number] NSAID p.r.n. for pain Application of salinocaine acid medication to lesion/lesions located at right foot Informed pt of risks and benefits of procedure including high reoccurence rate, infection, pain and consent given. Application of DSD post procedure. Application of salinocaine acid medication to lesion/lesions located at left foot Informed pt of risks and benefits of procedure including high reoccurence rate, infection, pain and consent given. Application of DSD post procedure. Grant Lozano DPM documented in this encounter [facility] 06-25-2024 History of Presen t illness Narrative Associated Problem(s): Generalized anxiety disorder ([facility]) Currently taking Lexapro to 20mg Has significant life stressors, wages being garnished. Primary caregiver fro friend. Taking Hydroxyzine PRN. Feels he would benefit from medications being increased but declines wanting to change medications or adding any new medications at this time. Discussed therapy and bringing in additional resources. Provided pt information to pediatric social worker for additional resources. Associated Problem(s): Hypertension (CMS/HCC) Currently taking Isosorbide Lisinopril Metoprolol Checks BP at home; Has not been checking BP's at home since last OV. Given BP log, advised pt to record BP and bring log back with them to next visit. Associated Problem(s): BREONNA (generalized anxiety disorder) (CMS/HCC) Currently taking Lexapro to 20mg Has significant life stressors, wages being garnished. Primary caregiver fro friend. Taking Hydroxyzine PRN. Feels he would benefit from medications being increased but declines wanting to change medications or adding any new medications at this time. Discussed therapy and bringing in additional resources. Provided pt information to pediatric social worker for additional resources. Associated Problem(s): Type 2 diabetes mellitus with stage 3a chronic kidney disease, without long-term current use of insulin (HCC) (CMS/[facility]) Currently taking Glimepiride, Jardiance, metformin. Most recent labs: hemoglobin A1C 7.9% in office today Average FSBS range from BGs range between 120 and 140 Checks BG levels using: standard BG meter. Is requesting a continuous BG monitor. 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 Will decrease glimepiride to once daily dosing today. Patient educated on lifestyle modifications, dietary restrictions, signs and symptoms of hypoglycemia/hyperglycemia and importance of eating regular consistent meals. Stressed upon importance of checking blood glucose at home and bring blood glucose log to appointments. All questions, concerns answered and addressed. Encouraged to call office if persistent hypoglycemia/hyperglycemia on home glucose monitoring noted. Images from the original note were not included. Subjective Patient ID: Roxane Bonner is a 63 y.o. male who presents for Follow-up. HPI Specialists: Cardiology- Dr. Marcelino HTN: Currently taking Isosorbide Lisinopril Metoprolol Checks BP at home; Has not been checking BP's at home since last OV. Given BP log, advised pt to record BP and bring log back with them to next visit. BREONNA: Currently taking Lexapro to 20mg Has significant life stressors, wages being garnished. Primary caregiver fro friend. Taking Hydroxyzine PRN. Feels he would benefit from medications being increased but declines wanting to change medications or adding any new medications at this time. Discussed therapy and bringing in additional resources. Provided pt information to pediatric social worker for additional resources. DMII: Currently taking Glimepiride, Jardiance, metformin. Most recent labs: hemoglobin A1C % in office today Average FSBS range from BGs range between 120 and 140 Checks BG levels using: standard BG meter. Is requesting a continuous BG monitor. 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 Will decrease glimepiride to once daily dosing today. Patient educated on lifestyle modifications, dietary restrictions, signs and symptoms of hypoglycemia/hyperglycemia and importance of eating regular consistent meals. Stressed upon importance of checking blood glucose at home and bring blood glucose log to appointments. All questions, concerns answered and addressed. Encouraged to call office if persistent hypoglycemia/hyperglycemia on home glucose monitoring noted. Education: Check blood sugars daily, notify if <70 or >200. Take medications (pills or insulin) as directed. Monitor for s/s of hypoglycemia (sweaty, dizziness, nausea, vomiting, or shakiness). Watch for increase in thirst, urination, or appetite. Inspect feet frequently monitoring for open wounds , and also recommend yearly eye exam. Pt should attempt to remain as physically active as chronic conditions allow, as well as trying to follow a diet low in carbohydrates, and simple sugars. . Review of Systems Constitutional: Negative for activity change, appetite change, chills, diaphoresis, fatigue, fever and unexpected weight change. HENT: Negative for congestion, ear pain, rhinorrhea, sinus pressure, sinus pain, sneezing, sore throat, trouble swallowing and voice change. Eyes: Negative for visual disturbance. Respiratory: Negative for cough, chest tightness, shortness of breath and wheezing. Cardiovascular: Negative for chest pain, palpitations and leg swelling. Gastrointestinal: Negative for abdominal distention, abdominal pain, blood in stool, constipation, diarrhea and vomiting. Genitourinary: Negative for decreased urine volume, dysuria, flank pain, frequency, hematuria and urgency. Musculoskeletal: Negative for arthralgias, gait problem, joint swelling and myalgias. Skin: Negative for rash. Neurological: Negative for dizziness, tremors, syncope, weakness, light-headedness and headaches. Psychiatric/Behavioral: Negative for decreased concentration and suicidal ideas. The patient is not nervous/anxious. Hematological: Does not bruise/bleed easily. Endocrine: Negative for cold intolerance, heat intolerance, polydipsia, polyphagia and polyuria. Objective Physical Exam Vitals reviewed. Constitutional: Appearance: Normal appearance. HENT: Right Ear: Tympanic membrane normal. Left Ear: Tympanic membrane normal. Nose: Nose normal. Mouth/Throat: Mouth: Mucous membranes are moist. Pharynx: Oropharynx is clear. Eyes: Pupils: Pupils are equal, round, and reactive to light. Cardiovascular: Rate and Rhythm: Normal rate and regular rhythm. Pulses: Normal pulses. Heart sounds: Normal heart sounds. Pulmonary: Effort: Pulmonary effort is normal. Breath sounds: Normal breath sounds. Abdominal: General: Abdomen is flat. Bowel sounds are normal. Palpations: Abdomen is soft. Musculoskeletal: General: Normal range of motion. Skin: General: Skin is warm and dry. Capillary Refill: Capillary refill takes less than 2 seconds. Neurological: Mental Status: He is alert and oriented to person, place, and time. Assessment/Plan Problem List Items Addressed This Visit Type 2 diabetes mellitus with stage 3a chronic kidney disease, without long-term current use of insulin (HCC) ([facility]) - Primary Currently taking Glimepiride, Jardiance, metformin. Most recent labs: hemoglobin A1C 7.9% in office today Average FSBS range from BGs range between 120 and 140 Checks BG levels using: standard BG meter. Is requesting a continuous BG monitor. 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 Will decrease glimepiride to once daily dosing today. Patient educated on lifestyle modifications, dietary restrictions, signs and symptoms of hypoglycemia/hyperglycemia and importance of eating regular consistent meals. Stressed upon importance of checking blood glucose at home and bring blood glucose log to appointments. All questions, concerns answered and addressed. Encouraged to call office if persistent hypoglycemia/hyperglycemia on home glucose monitoring noted. Hypertension ([facility]) Currently taking Isosorbide Lisinopril Metoprolol Checks BP at home; Has not been checking BP's at home since last OV. Given BP log, advised pt to record BP and bring log back with them to next visit. Generalized anxiety disorder ([facility]) Currently taking Lexapro to 20mg Has significant life stressors, wages being garnished. Primary caregiver fro friend. Taking Hydroxyzine PRN. Feels he would benefit from medications being increased but declines wanting to change medications or adding any new medications at this time. Discussed therapy and bringing in additional resources. Provided pt information to pediatric social worker for additional resources. Type 2 diabetes mellitus with diabetic polyneuropathy ([facility]) Relevant Medications glimepiride (Amaryl) 2 MG tablet Other Visit Diagnoses Hyperlipidemia, unspecified ([facility]) documented in this encounter [facility] 06-25-2024 Instructions Cris Johnson NP - 06/25/2024 9:00 AM EST Education: Check blood sugars daily, notify if <70 or >200. Take medications (pills or insulin) as directed. Monitor for s/s of hypoglycemia (sweaty, dizziness, nausea, vomiting, or shakiness). Watch for increase in thirst, urination, or appetite. Inspect feet frequently monitoring for open wounds , and also recommend yearly eye exam. Pt should attempt to remain as physically active as chronic conditions allow, as well as trying to follow a diet low in carbohydrates, and simple sugars. documented in this encounter [facility] 04-20-2024 Telephone encounter Note LVM [facility] 04-20-2024 Miscellaneous Notes LVM lvm Pt was a no show, lvm documented in this encounter [facility] 04-16-2024 Telephone encounter Note lvm [facility] 04-12-2024 Telephone encounter Note Pt was a no show, lvm [facility] 03-26-2024 History of Presen t illness Narrative Associated Problem(s): BREONNA (generalized anxiety disorder) ([facility]) Currently taking Lexapro to 20mg Has significant life stressors, wages being garnished. Taking Hydroxyzine PRN. States anxiety and depression has decreased since increasing dose. Reports anxiety is much better, palpitations and restlessness have improved. Referral was sent to , pt has not yet scheduled appointment, reports he will soon. Associated Problem(s): Type 2 diabetes mellitus with stage 3a chronic kidney disease, without long-term current use of insulin (HCC) (CMS/HCC) Currently taking Glimepiride, Jardiance, metformin. Most recent labs: hemoglobin A1C Average FSBS range from BGs range between 120 and 140 Checks BG levels using: No episode of hypoglycemia No medication adverse effects reported by the patient. Patient educated on lifestyle modifications, dietary restrictions, signs and symptoms of hypoglycemia/hyperglycemia and importance of eating regular consistent meals. Stressed upon importance of checking blood glucose at home and bring blood glucose log to appointments. All questions, concerns answered and addressed. Encouraged to call office if persistent hypoglycemia/hyperglycemia on home glucose monitoring noted. Continue current regimen Is scheduled for DM eye exam. Images from the original note were not included. Subjective Patient ID: Roxane Bonner is a 63 y.o. male who presents for Follow-up. HPI HTN: Currently taking Isosorbide Lisinopril Metoprolol Checks BP at home; Sent in RX for new BP cuff, pt's previous cuff was not correlating with manual BP's. Pt did not picker/puller cuff at pharmacy. States there was an issue at pharmacy. Reports he will try to get cuff today. Has not been checking BP's at home since last OV. Given BP log, advised pt to record BP and bring log back with them to next visit. BREONNA: Currently taking Lexapro to 20mg Has significant life stressors, wages being garnished. Taking Hydroxyzine PRN. States anxiety and depression has decreased since increasing dose. Reports anxiety is much better, palpitations and restlessness have improved. DMII: Currently taking Glimepiride, Jardiance, metformin. Most recent labs: hemoglobin A1C 8.1% on office A1c. Will send in lab for confirmation. Average FSBS range from BGs range between 120 and 140 Checks BG levels using: No episode of hypoglycemia No medication adverse effects reported by the patient. Patient educated on lifestyle modifications, dietary restrictions, signs and symptoms of hypoglycemia/hyperglycemia and importance of eating regular consistent meals. Stressed upon importance of checking blood glucose at home and bring blood glucose log to appointments. All questions, concerns answered and addressed. Encouraged to call office if persistent hypoglycemia/hyperglycemia on home glucose monitoring noted. Is scheduled for DM eye exam. Education: Check blood sugars daily, notify if <70 or >200. Take medications (pills or insulin) as directed. Monitor for s/s of hypoglycemia (sweaty, dizziness, nausea, vomiting, or shakiness). Watch for increase in thirst, urination, or appetite. Inspect feet frequently monitoring for open wounds , and also recommend yearly eye exam. Pt should attempt to remain as physically active as chronic conditions allow, as well as trying to follow a diet low in carbohydrates, and simple sugars. Review of Systems Constitutional: Negative for activity change, appetite change, chills, diaphoresis, fatigue, fever and unexpected weight change. HENT: Negative for congestion, ear pain, rhinorrhea, sinus pressure, sinus pain, sneezing, trouble swallowing and voice change. Eyes: Negative for visual disturbance. Respiratory: Negative for chest tightness, shortness of breath and wheezing. Cardiovascular: Negative for chest pain, palpitations and leg swelling. Gastrointestinal: Negative for abdominal distention, abdominal pain, blood in stool, constipation, diarrhea and vomiting. Heartburn Genitourinary: Negative for decreased urine volume, dysuria, flank pain, frequency, hematuria and urgency. Musculoskeletal: Negative for arthralgias, gait problem, joint swelling and myalgias. Neurological: Negative for dizziness, tremors, syncope, weakness, light-headedness and headaches. Psychiatric/Behavioral: Negative for suicidal ideas. Hematological: Does not bruise/bleed easily. Endocrine: Negative for cold intolerance, heat intolerance, polydipsia, polyphagia and polyuria. Objective Physical Exam Vitals reviewed. Constitutional: Appearance: Normal appearance. HENT: Head: Normocephalic and atraumatic. Right Ear: Tympanic membrane normal. Left Ear: Tympanic membrane normal. Nose: Nose normal. Mouth/Throat: Mouth: Mucous membranes are moist. Pharynx: Oropharynx is clear. Eyes: Pupils: Pupils are equal, round, and reactive to light. Cardiovascular: Rate and Rhythm: Normal rate and regular rhythm. Pulses: Normal pulses. Heart sounds: Normal heart sounds. Pulmonary: Effort: Pulmonary effort is normal. Breath sounds: Normal breath sounds. Abdominal: General: Abdomen is flat. Bowel sounds are normal. Palpations: Abdomen is soft. Musculoskeletal: General: Normal range of motion. Cervical back: Normal range of motion. Skin: General: Skin is warm and dry. Capillary Refill: Capillary refill takes less than 2 seconds. Neurological: General: No focal deficit present. Mental Status: He is alert and oriented to person, place, and time. Psychiatric: Mood and Affect: Mood normal. Behavior: Behavior normal. Assessment/Plan Problem List Items Addressed This Visit Type 2 diabetes mellitus with stage 3a chronic kidney disease, without long-term current use of insulin ([facility]) ([facility]) Currently taking Glimepiride, Jardiance, metformin. Most recent labs: hemoglobin A1C Average FSBS range from BGs range between 120 and 140 Checks BG levels using: No episode of hypoglycemia No medication adverse effects reported by the patient. Patient educated on lifestyle modifications, dietary restrictions, signs and symptoms of hypoglycemia/hyperglycemia and importance of eating regular consistent meals. Stressed upon importance of checking blood glucose at home and bring blood glucose log to appointments. All questions, concerns answered and addressed. Encouraged to call office if persistent hypoglycemia/hyperglycemia on home glucose monitoring noted. Continue current regimen Is scheduled for DM eye exam. Relevant Medications lisinopril 10 MG tablet metFORMIN (Glucophage) 1000 MG tablet Other Relevant Orders Hemoglobin A1c Hypertension (CMS/HCC) Relevant Medications lisinopril 10 MG tablet BREONNA (generalized anxiety disorder) (CMS/HCC) Currently taking Lexapro to 20mg Has significant life stressors, wages being garnished. Taking Hydroxyzine PRN. States anxiety and depression has decreased since increasing dose. Reports anxiety is much better, palpitations and restlessness have improved. Referral was sent to , pt has not yet scheduled appointment, reports he will soon. Relevant Medications hydrOXYzine HCl (Atarax) 25 MG tablet Generalized anxiety disorder (CMS/HCC) Relevant Medications escitalopram (Lexapro) 20 MG tablet Type 2 diabetes mellitus with diabetic polyneuropathy (CMS/HCC) Relevant Medications empagliflozin (Jardiance) 25 MG glimepiride (Amaryl) 2 MG tablet lisinopril 10 MG tablet metFORMIN (Glucophage) 1000 MG tablet Other Relevant Orders POCT glycosylated hemoglobin (Hb A1C) docked device (Completed) Acid reflux Relevant Medications omeprazole (PriLOSEC) [address] capsule Other Visit Diagnoses Hyperlipidemia, unspecified (CMS/HCC) Relevant Medications rosuvastatin (Crestor) 20 MG tablet Left Vm for pt to contact the office. documented in this encounter [facility] 03-26-2024 Instructions Cris Johnson NP - 03/26/2024 9:00 AM EST Education: Check blood sugars daily, notify if <70 or >200. Take medications (pills or insulin) as directed. Monitor for s/s of hypoglycemia (sweaty, dizziness, nausea, vomiting, or shakiness). Watch for increase in thirst, urination, or appetite. Inspect feet frequently monitoring for open wounds , and also recommend yearly eye exam. Pt should attempt to remain as physically active as chronic conditions allow, as well as trying to follow a diet low in carbohydrates, and simple sugars. documented in this encounter [facility] 03-05-2024 Telephone encounter Note Pt called stating he is completley out of his Pregabalin. LOYDA:02/13/2024 NOV:03/26/2024 [facility] 03-05-2024 Miscellaneous Notes Pt called stating he is completley out of his Pregabalin. LOYDA:02/13/2024 NOV:03/26/2024 documented in this encounter [facility] 02-13-2024 History of Presen t illness Narrative Associated Problem(s): Acid reflux Pt reports primary complaint is an itching in his throat and coughing, especially at night. Likely related to acid reflux. Will trial omeprazole 20mg for 6 weeks. Associated Problem(s): Dysphagia Pt states he did not have EGD done; Today denies difficulty swallowing foods or water, states his primary complaint is an itching in his throat and coughing, especially at night. Likely related to acid reflux. Will trial omeprazole 20mg for 6 weeks. Associated Problem(s): Hypertension (CMS/HCC) Currently taking Isosorbide Lisinopril Metoprolol Checks BP at home; Averages are too high- HOWEVER, Manual BP in office today 110/72, Pt's BP cuff does NOT correlate. Pt's cuff states BP is 200/90; Advised pt to stop using cuff he has currently, sent in RX for new BP monitor. Denies orthostatic changes, dizziness, cough, shortness of breath, swelling in extremities. Continue current regimen. Given BP log, advised pt to record BP and bring log back with them to next visit. Associated Problem(s): BREONNA (generalized anxiety disorder) ([facility]) Increased Lexapro to 20mg last OV; Has significant life stressors, wages being garnished. Taking Hydroxyzine PRN. Admits SI; States thoughts are brief and go away, but reports he is significantly overwhelmed. Denies active plan; States he would not act on plan because he has loved ones, and it would be too selfish. Continue current regimen at this time. Suicide hotline information given. Referral sent to . Associated Problem(s): Hx of psoriasis Has multiple areas of plaques on knees, hands, elbows. States he does not want biologics or injectables at this time. Will refer to derm. Images from the original note were not included. Subjective Patient ID: Roxane Bonner is a 63 y.o. male who presents for Follow-up (6 month follow up. Blood pressure ). HPI HTN: Currently taking Isosorbide Lisinopril Metoprolol Checks BP at home; Averages are too high- HOWEVER, Manual BP in office today 110/72, Pt's BP cuff does NOT correlate. Pt's cuff states BP is 200/90; Advised pt to stop using cuff he has currently, sent in RX for new BP monitor. Denies orthostatic changes, dizziness, cough, shortness of breath, swelling in extremities. Continue current regimen. Given BP log, advised pt to record BP and bring log back with them to next visit. Pt states he did not have EGD done; Today denies difficulty swallowing foods or water, states his primary complaint is an itching in his throat and coughing, especially at night. Likely related to acid reflux. Will trial omeprazole 20mg for 6 weeks. BREONNA: Increased Lexapro to 20mg last OV; Has significant life stressors, wages being garnished. Taking Hydroxyzine PRN. Admits SI; States thoughts are brief and go away, but reports he is significantly overwhelmed. Denies active plan; States he would not act on plan because he has loved ones, and it would be too selfish. Continue current regimen at this time. Suicide hotline information given. Referral sent to . Review of Systems Constitutional: Negative for activity change, appetite change, chills, diaphoresis, fatigue, fever and unexpected weight change. HENT: Positive for sore throat. Negative for congestion, ear pain, rhinorrhea, sinus pressure, sinus pain, sneezing, trouble swallowing and voice change. Eyes: Negative for visual disturbance. Respiratory: Positive for cough. Negative for chest tightness, shortness of breath and wheezing. Cardiovascular: Negative for chest pain, palpitations and leg swelling. Gastrointestinal: Negative for abdominal distention, abdominal pain, blood in stool, constipation, diarrhea and vomiting. Heartburn Genitourinary: Negative for decreased urine volume, dysuria, flank pain, frequency, hematuria and urgency. Musculoskeletal: Negative for arthralgias, gait problem, joint swelling and myalgias. Skin: Positive for rash. Neurological: Negative for dizziness, tremors, syncope, weakness, light-headedness and headaches. Psychiatric/Behavioral: Positive for decreased concentration. Negative for suicidal ideas. The patient is nervous/anxious. Hematological: Does not bruise/bleed easily. Endocrine: Negative for cold intolerance, heat intolerance, polydipsia, polyphagia and polyuria. Objective Physical Exam Vitals reviewed. Constitutional: Appearance: Normal appearance. HENT: Head: Normocephalic and atraumatic. Right Ear: Tympanic membrane normal. Left Ear: Tympanic membrane normal. Nose: Nose normal. Mouth/Throat: Mouth: Mucous membranes are moist. Pharynx: Oropharynx is clear. Eyes: Pupils: Pupils are equal, round, and reactive to light. Cardiovascular: Rate and Rhythm: Normal rate and regular rhythm. Pulses: Normal pulses. Heart sounds: Normal heart sounds. Pulmonary: Effort: Pulmonary effort is normal. Breath sounds: Normal breath sounds. Abdominal: General: Abdomen is flat. Bowel sounds are normal. Palpations: Abdomen is soft. Musculoskeletal: General: Normal range of motion. Cervical back: Normal range of motion. Skin: General: Skin is warm and dry. Capillary Refill: Capillary refill takes less than 2 seconds. Findings: Rash present. Rash is scaling. Neurological: General: No focal deficit present. Mental Status: He is alert and oriented to person, place, and time. Psychiatric: Mood and Affect: Mood normal. Behavior: Behavior normal. Assessment/Plan Problem List Items Addressed This Visit Hypertension (CMS/HCC) - Primary Currently taking Isosorbide Lisinopril Metoprolol Checks BP at home; Averages are too high- HOWEVER, Manual BP in office today 110/72, Pt's BP cuff does NOT correlate. Pt's cuff states BP is 200/90; Advised pt to stop using cuff he has currently, sent in RX for new BP monitor. Denies orthostatic changes, dizziness, cough, shortness of breath, swelling in extremities. Continue current regimen. Given BP log, advised pt to record BP and bring log back with them to next visit. Relevant Medications Blood Pressure Monitoring (Blood Pressure Cuff) misc BREONNA (generalized anxiety disorder) ([facility]) Increased Lexapro to 20mg last OV; Has significant life stressors, wages being garnished. Taking Hydroxyzine PRN. Admits SI; States thoughts are brief and go away, but reports he is significantly overwhelmed. Denies active plan; States he would not act on plan because he has loved ones, and it would be too selfish. Continue current regimen at this time. Suicide hotline information given. Referral sent to . Relevant Orders Ambulatory referral to Behavioral Health Acid reflux Pt reports primary complaint is an itching in his throat and coughing, especially at night. Likely related to acid reflux. Will trial omeprazole 20mg for 6 weeks. Relevant Medications omeprazole (PriLOSEC) [address] capsule Hx of psoriasis Has multiple areas of plaques on knees, hands, elbows. States he does not want biologics or injectables at this time. Will refer to derm. Relevant Orders Ambulatory referral to Dermatology documented in this encounter [facility] 02-13-2024 Instructions Cris Johnson NP - 02/13/2024 9:30 AM EDT Referral sent to Behavioral Health- they will call you! Help line information given. If any suicidal thoughts, thoughts of hurting others, or hallucinations contact the office or proceed to the Emergency Room for mental health evaluation. Schedule DM eye exam. Referral sent to Dermatology- they will call you. If you do not hear from them in 2 weeks, call my office. Start taking Omperazole 20mg once daily; documented in this encounter [facility] 01-26-2024 History of Presen t illness Narrative Patient: Roxane Bonner : 1960 PCP: Ajay Gates MD SUBJECTIVE This is a 63 y.o. male that presents today with a CC of elongated, thick nails. Pt states nails have been elongated and thick for many years and cause pain with ambulation in shoegear. Pt has tried previous treatment with minimal relief. Pt presents today for nail care and treatment. 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 and states some achiness from time to time and denies any treatment Allergies: Allergies Allergen Reactions Penicillins Sulfa Antibiotics Past Medical History: Past Medical History: Diagnosis Date Chronic diastolic CHF (congestive heart failure) ([facility]) CKD (chronic kidney disease), symptom management only, stage 3 (moderate) (HCC) ([facility]) DM II (diabetes mellitus, type II), controlled ([facility]) Elevated cholesterol ([facility]) Fracture RT LF BREONNA (generalized anxiety disorder) ([facility]) Heart disease History of medical problems cyst on cheek HLD (hyperlipidemia) ([facility]) Hypertension ([facility]) Kidney stones Neuropathy of foot Smoking Type 2 diabetes mellitus with peripheral neuropathy ([facility]) Type 2 diabetes mellitus with stage 3 chronic kidney disease, without long-term current use of insulin, unspecified whether stage 3a or 3b CKD (HCC) ([facility]) Medications: Current Outpatient Medications: ASPIRIN 81 MG chewable tablet, Chew 81 mg in the morning., Disp: , Rfl: empagliflozin (Jardiance) 25 MG, Take 1 tablet (25 mg) by mouth Daily, Disp: 90 tablet, Rfl: 1 escitalopram (Lexapro) 20 MG tablet, Take 1 tablet (20 mg) by mouth Daily, Disp: 30 tablet, Rfl: 2 glimepiride (Amaryl) 2 MG tablet, Take 1 tablet (2 mg) by mouth in the morning and 1 tablet (2 mg) before bedtime., Disp: 180 tablet, Rfl: 1 hydrOXYzine HCl (Atarax) 25 MG tablet, TAKE 1 TABLET BY MOUTH EVERY 8 HOURS NEEDED FOR ITCHING, Disp: 120 tablet, Rfl: 3 isosorbide mononitrate ER (Imdur) 30 MG 24 hr tablet, Take 30 mg by mouth in the morning., Disp: , Rfl: lisinopril 10 MG tablet, Take 1 tablet (10 mg) by mouth Daily, Disp: 90 tablet, Rfl: 1 metFORMIN (Glucophage) 1000 MG tablet, Take 1 tablet (1,000 mg) by mouth in the morning and 1 tablet (1,000 mg) in the evening. Take with meals., Disp: 180 tablet, Rfl: 1 Methylcobalamin (W16-BLOVYY PO), Take 1,000 mg by mouth 1 (one) time each day, Disp: , Rfl: metoprolol succinate XL (Toprol-XL) 25 MG 24 hr tablet, Take 25 mg by mouth Daily, Disp: , Rfl: nitroglycerin (Nitrostat) 0.3 MG SL tablet, Place 0.3 mg under the tongue every 5 (five) minutes if needed for chest pain, Disp: , Rfl: pregabalin (Lyrica) 150 MG capsule, Take 1 capsule (150 mg) by mouth in the morning and 1 capsule (150 mg) in the evening and 1 capsule (150 mg) before bedtime., Disp: 270 capsule, Rfl: 0 rosuvastatin (Crestor) 20 MG tablet, TAKE 1 TABLET BY MOUTH DAILY, Disp: 100 tablet, Rfl: 1 Social History: Social History Socioeconomic History Marital status: Unmarried Spouse name: Not on file Number of children: Not on file Years of education: Not on file Highest education level: Not on file Occupational History Not on file Tobacco Use Smoking status: Every Day Current packs/day: 1.00 Types: Cigarettes Passive exposure: Current Smokeless tobacco: Not on file Tobacco comments: Moderate cigarette smoker (10-19/day) Vaping Use Vaping status: Never Used Substance and Sexual Activity Alcohol use: Yes Comment: caffeine: 3-4 cups per day 5 hour energy drink ;3 -4 times a week Drug use: Defer Sexual activity: Defer Other Topics Concern Not on file Social History Narrative Not on file Social Determinants of Health Financial Resource Strain: Not on file Food Insecurity: Not on file Transportation Needs: Not on file Physical Activity: Not on file Stress: Not on file Social Connections: Not on file Intimate Partner Violence: Not on file Housing Stability: Not on file ROS: Gastrointestinal: denies abdominal pain, ulcers, or changes in appetite or bowel habits Musculoskeletal: Positive generalized arthritis to joints and denies loss of strength. Cardiovascular: denies CP, palpitations, irregular rhythms OBJECTIVE LE EXAM: DERM: Elongated thick yellow crumbly nails digits 1 through 10. Positive hair growth to bilateral feet. Bony prominence 1st MPJ regions bilaterally VASC: Palpable pedal pulses bilaterally NEURO: 5.07 Mullin Geraldine monofilament test intact to digits and forefoot bilaterally 125Hz tuning fork diminished to 1st MPJ bilaterally ORTHO: Positive pain on palpation to nails 1 through 10 Range motion of 1st MPJ less than 65 degrees dorsiflexion bilaterally ASSESSMENT 1. Hallux rigidus of left foot 2. Type 2 diabetes mellitus with stage 3a chronic kidney disease, without long-term current use of insulin ([facility]) ([facility]) 3. Hallux rigidus of right foot 4. Type 2 diabetes mellitus with diabetic polyneuropathy, unspecified whether intermediate school teacher insulin use ([facility]) ([facility]) 5. Onychomycosis 6. Toe pain, bilateral PLAN Discussed proper foot care with patient today. Debride nails in length and thickness digits 1 through 10 Patient educated today on proper diabetic foot care including monitoring feet daily for any signs of infection openings in the skin or irregularities to both feet. Patient had a diabetic neurological exam today to both their feet and discussed proper shoe gear. Discuss possible inserts for hallux rigidus bilaterally as well as discuss surgical correction in the future if it becomes worse including joint implant type surgery DiscussedNail avulsion and permanent nail avulsions as he has some pain to the nails from time to time particularly the left great toenail and he may consider in the future Grant Lozano DPM documented in this encounter [facility] 01-05-2024 History of Presen t illness Narrative Associated Problem(s): Current every day smoker 1ppd currently. Denies interest in quitting. States it has been worse with anxiety recently, has been smoking more. Counseled on smoking cessation. Associated Problem(s): Dysphagia Has been having dysphagia recently- Especially with thick foods and water Agreeable to Fluoroscopy/KUB to rule out pathological cause. Associated Problem(s): BREONNA (generalized anxiety disorder) ([facility]) Taking Lexapro 10mg Reports is having more episodes of anxiety recently, uses the hydroxyzine PRN.Does not feel like it is working. PRN. Will consider increasing Lexapro dosing. Denies SI/HI. Increased Lexapro to 20mg. Associated Problem(s): CKD (chronic kidney disease), symptom management only, stage 3 (moderate) ([facility]) ([facility]) GFR 58 on labs 1 month ago. GFR stable. Avoid nephrotoxic agents. Continue with Jardiance. Associated Problem(s): Type 2 diabetes mellitus with stage 3a chronic kidney disease, without long-term current use of insulin ([facility]) ([facility]) BS THIS MORNING 167. PREVIOUSLY BETWEEN 80 TO 150 Most recent labs: hemoglobin A1C 7.0% Average FSBS range from BGs range between 87 and 240 No episode of hypoglycemia No medication adverse effects reported by the patient. Patient educated on lifestyle modifications, dietary restrictions, signs and symptoms of hypoglycemia/hyperglycemia and importance of eating regular consistent meals. Stressed upon importance of checking blood glucose at home and bring blood glucose log to appointments. All questions, concerns answered and addressed. Encouraged to call office if persistent hypoglycemia/hyperglycemia on home glucose monitoring noted. DM eye exam: Due; Will schedule appt. Associated Problem(s): Hyperlipidemia (CMS/HCC) Currently taking Rosuvastatin 20mg Reports myalgias. Will attempt switching to Atorvastatin if ok with cardiology Last lipid panel Triglycerides had increased. States he was not fasting with last lipid panel. Associated Problem(s): Hypertension (CMS/HCC) Currently taking Imdur 30mg Metoprolol 25mg Lisinopril 10mg Does not checks BP at home; Denies orthostatic changes, dizziness, cough, shortness of breath, swelling in extremities. Continue current regimen. Given BP log; Instructed to check BP at home and bring log back to next visit. Images from the original note were not included. Subjective Patient ID: Roxane Bonner is a 63 y.o. male who presents for Leg Pain. HPI Specialists: Cardiology- Dr. Marcelino Urology- Dr. Zuniga Bilateral Lower Extremity Pain: Muscle aches continuously Ongoing for a long time HTN: Currently taking Imdur 30mg Metoprolol 25mg Lisinopril 10mg Does not checks BP at home; Denies orthostatic changes, dizziness, cough, shortness of breath, swelling in extremities. Continue current regimen. HLD: Currently taking Rosuvastatin 20mg Reports myalgias. Will attempt switching to Atorvastatin if ok with cardiology States he was not fasting with last lipid panel. Component Ref Range & Units 1 mo ago (11/23/23) 1 mo ago (11/23/23) 1 mo ago (11/23/23) 7 mo ago (05/30/23) 7 mo ago (05/30/23) 7 mo ago (05/30/23) 7 mo ago (05/30/23) TRIGLYCERIDES <=150 mg/dL 216 High 142 R 37.6 R 184 High 139 R 34.4 R 103.93 R CHOLESTEROL <=200 mg/dL 110 5.0 R 1.0 High R 109 5.0 R 0.6 High R HDL CHOLESTEROL 40 - 60 mg/dL 37 Low 16.0 R 4.2 R 39 Low CM 14.2 R 5.1 R Comment: > or =60 mg/dl - LOW CARDIOVASCULAR RISK <40 mg/dl - HIGH CARDIOVASCULAR RISK LDL CHOLESTEROL CALCULATED mg/dL 30.0 101 R 3.5 R 34.0 CM 82 R 3.4 R Comment: <100 mg/dl OPTIMAL 100-129 mg/dl NEAR OR ABOVE OPTIMAL 130-159 mg/dl BORDERLINE HIGH 160-189 mg/dl HIGH >190 mg/dl VERY HIGH VLDL CHOLESTEROL mg/dL 43.2 0.6 R 0.8 R 36.8 0.4 R 0.7 R CHOL HDL RATIO 3.0 30 R 0.09 High R 2.8 CM 30 R 0.06 High R Comment: 3.3 - 4.4 LOW RISK 4.4 - 7.1 AVERAGE RISK 7.1 - 11.0 MODERATE RISK >11.0 HIGH RISK ALANINE AMINOTRANSFERASE 46 R 47 R ALKALINE PHOSPHATASE 65 R 64 R TOTAL PROTEIN 7.3 R 7.8 R ALBUMIN LEVEL 4.0 R 4.2 R ALBUMIN GLOBULIN RATIO 1.2 1.2 Resulting Agency [facility] THIS MORNING 167. PREVIOUSLY BETWEEN 80 TO 150 Most recent labs: hemoglobin A1C 7.0% Average FSBS range from BGs range between 87 and 240 No episode of hypoglycemia No medication adverse effects reported by the patient. Patient educated on lifestyle modifications, dietary restrictions, signs and symptoms of hypoglycemia/hyperglycemia and importance of eating regular consistent meals. Stressed upon importance of checking blood glucose at home and bring blood glucose log to appointments. All questions, concerns answered and addressed. Encouraged to call office if persistent hypoglycemia/hyperglycemia on home glucose monitoring noted. DM eye exam: Due; Will schedule appt. Diabetic foot exam: Left: Reflexes 2+ Vibratory sensation normal Proprioception normal Sharp/dull discrimination normal Filament test present Right: Reflexes 2+ Vibratory sensation normal Proprioception normal Sharp/dull discrimination normal Filament test present CKD III: GFR 58 on labs 1 month ago. GFR stable. Avoid nephrotoxic agents. Continue with Jardiance. BREONNA: Taking Lexapro 10mg Reports is having more episodes of anxiety recently, uses the hydroxyzine PRN.Does not feel like it is working. PRN. Will consider increasing Lexapro dosing. Denies SI/HI. Smoker: 1ppd currently. Denies interest in quitting. States it has been worse with anxiety recently, has been smoking more. Has been having dysphagia recently- Especially with thick foods and water Agreeable to EDG or GI referrral Review of Systems Constitutional: Negative for activity change, appetite change, chills, diaphoresis, fatigue, fever and unexpected weight change. HENT: Positive for trouble swallowing. Negative for congestion, ear pain, rhinorrhea, sinus pressure, sinus pain, sneezing, sore throat and voice change. Eyes: Negative for visual disturbance. Respiratory: Negative for cough, chest tightness, shortness of breath and wheezing. Cardiovascular: Negative for chest pain, palpitations and leg swelling. Gastrointestinal: Negative for abdominal distention, abdominal pain, blood in stool, constipation, diarrhea and vomiting. Genitourinary: Negative for decreased urine volume, dysuria, flank pain, frequency, hematuria and urgency. Musculoskeletal: Positive for myalgias. Negative for arthralgias, gait problem and joint swelling. Skin: Negative for rash. Neurological: Positive for numbness. Negative for dizziness, tremors, syncope, weakness, light-headedness and headaches. Numbness/tingling in extremities- DM neuropathy Psychiatric/Behavioral: Negative for decreased concentration and suicidal ideas. The patient is not nervous/anxious. Hematological: Does not bruise/bleed easily. Endocrine: Negative for cold intolerance, heat intolerance, polydipsia, polyphagia and polyuria. Objective Physical Exam Vitals reviewed. Constitutional: Appearance: Normal appearance. HENT: Head: Normocephalic and atraumatic. Right Ear: Tympanic membrane normal. Left Ear: Tympanic membrane normal. Nose: Nose normal. Mouth/Throat: Mouth: Mucous membranes are moist. Pharynx: Oropharynx is clear. Eyes: Pupils: Pupils are equal, round, and reactive to light. Cardiovascular: Rate and Rhythm: Normal rate and regular rhythm. Pulses: Normal pulses. Heart sounds: Normal heart sounds. Pulmonary: Effort: Pulmonary effort is normal. Breath sounds: Normal breath sounds. Abdominal: General: Abdomen is flat. Bowel sounds are normal. Palpations: Abdomen is soft. Musculoskeletal: General: Normal range of motion. Cervical back: Normal range of motion. Feet: Right foot: Toenail Condition: Right toenails are abnormally thick and long. Left foot: Toenail Condition: Left toenails are abnormally thick and long. Skin: General: Skin is warm and dry. Capillary Refill: Capillary refill takes less than 2 seconds. Findings: Rash present. Rash is scaling. Comments: Psoriasis- scattered Neurological: General: No focal deficit present. Mental Status: He is alert and oriented to person, place, and time. Psychiatric: Mood and Affect: Mood normal. Behavior: Behavior normal. Assessment/Plan Problem List Items Addressed This Visit Current every day smoker 1ppd currently. Denies interest in quitting. States it has been worse with anxiety recently, has been smoking more. Counseled on smoking cessation. Type 2 diabetes mellitus with stage 3a chronic kidney disease, without long-term current use of insulin ([facility]) ([facility]) BS THIS MORNING 167. PREVIOUSLY BETWEEN 80 TO 150 Most recent labs: hemoglobin A1C 7.0% Average FSBS range from BGs range between 87 and 240 No episode of hypoglycemia No medication adverse effects reported by the patient. Patient educated on lifestyle modifications, dietary restrictions, signs and symptoms of hypoglycemia/hyperglycemia and importance of eating regular consistent meals. Stressed upon importance of checking blood glucose at home and bring blood glucose log to appointments. All questions, concerns answered and addressed. Encouraged to call office if persistent hypoglycemia/hyperglycemia on home glucose monitoring noted. DM eye exam: Due; Will schedule appt. Relevant Orders Ambulatory referral to Podiatry Hyperlipidemia ([facility]) Currently taking Rosuvastatin 20mg Reports myalgias. Will attempt switching to Atorvastatin if ok with cardiology Last lipid panel Triglycerides had increased. States he was not fasting with last lipid panel. Hypertension ([facility]) - Primary Currently taking Imdur 30mg Metoprolol 25mg Lisinopril 10mg Does not checks BP at home; Denies orthostatic changes, dizziness, cough, shortness of breath, swelling in extremities. Continue current regimen. Given BP log; Instructed to check BP at home and bring log back to next visit. BREONNA (generalized anxiety disorder) ([facility]) Taking Lexapro 10mg Reports is having more episodes of anxiety recently, uses the hydroxyzine PRN.Does not feel like it is working. PRN. Will consider increasing Lexapro dosing. Denies SI/HI. Increased Lexapro to 20mg. Smoker Generalized anxiety disorder (CMS/HCC) Relevant Medications escitalopram (Lexapro) 20 MG tablet Type 2 diabetes mellitus with diabetic polyneuropathy (HCC) [facility] [facility]) Dysphagia Has been having dysphagia recently- Especially with thick foods and water Agreeable to Fluoroscopy/KUB to rule out pathological cause. Relevant Orders FL upper GI double contrast w KUB Other Visit Diagnoses Choking due to food (regurgitated), initial encounter Relevant Orders FL upper GI double contrast w KUB documented in this encounter [facility] 01-05-2024 Instructions Cris Johnson NP - 01/05/2024 1:00 PM EDT Start taking 20mg of Escitalopram Have you diabetic eye exam completed. Referral sent to Podiatry and Therapy; They will call you! I will call you after I talk with your cardiologists office regarding medication. Your blood pressure is GOOD in the office today. Check your blood pressure at home 3 times per week, preferably in the afternoon. Goal <130/90. Record results in blood pressure log. Bring back with you to your next visit. Education: Check blood sugars daily, notify if <70 or >200. Take medications (pills or insulin) as directed. Monitor for s/s of hypoglycemia (sweaty, dizziness, nausea, vomiting, or shakiness). Watch for increase in thirst, urination, or appetite. Inspect feet frequently monitoring for open wounds , and also recommend yearly eye exam. Pt should attempt to remain as physically active as chronic conditions allow, as well as trying to follow a diet low in carbohydrates, and simple sugars. documented in this encounter [facility] 06-07-2023 History of Presen t illness Narrative Subjective Roxane Bonner is a [...] Disp: , Rfl: Assessment/Plan 1. Atherosclerosis of [place] coronary artery of [place] heart without angina pectoris 2. Shortness of breath 3. Anxiety 4. Obesity (BMI 30-39.9) 5. Type 2 diabetes mellitus without complication, with long-term current use of insulin ([facility]) 6. Current every day smoker Scribe Attestation By signing my name below, Ainsley Estevez LPN , Scribe attest that this documentation has been prepared under the direction and in the presence of Jacinto Marcelino DO. documented in this encounter [facility] Work Phone: 06-07-2023 Instructions Shefali George CMA - 06/07/2023 2:30 PM EST Please bring all medicines, vitamins, and herbal supplements with you when you come to the office. Prescriptions will not be filled unless you are compliant with your follow up appointments or have a follow up appointment scheduled as per instruction of your physician. Refills should be requested at the time of your visit. documented in this encounter [facility] Work Phone: 10-01-2022 Chief complaint Narrative [...] seeking medical attention if new symptoms arise. [facility] [address] DO Work Phone: 10-30-2020 Evaluation note Diagnosis Stage 3a chronic kidney disease (HCC) documented in this encounter [employer] Phone: [phone] Evaluation note* Diagnosis Stage 3a chronic kidney disease (HCC) Nephrolithiasis Calculus of kidney documented in this encounter [employer] Phone: evaluation note* Diagnosis Renal calculus Calculus of kidney PAULA (acute kidney injury) (HCC) Acute kidney failure, unspecified Dysuria documented in this encounter [employer] Phone: evaluation note* Diagnosis Renal calculus Calculus of kidney documented in this encounter [facility] Work Phone: evaluation noteNo assessment information available [facility] Work Phone: Evaluation note* Diagnosis Atherosclerosis of [place] coronary artery of [place] heart without angina pectoris Shortness of breath Anxiety Anxiety state, unspecified Obesity (BMI 30-39.9) Type 2 diabetes mellitus without complication, with long-term current use of insulin (CMS/HCC) Current every day smoker documented in this encounter [facility] Work Phone: Evaluation note* Diagnosis Primary hypertension (CMS/HCC)- Primary Unspecified essential hypertension Gastroesophageal reflux disease without esophagitis Esophageal reflux BREONNA (generalized anxiety disorder) (CMS/HCC) Generalized anxiety disorder Hx of psoriasis documented in this encounter [facility] HealthcareEvaluation note* Diagnosis Generalized anxiety disorder (CMS/HCC) Generalized anxiety disorder documented in this encounter [facility] HealthcareEvaluation note* Diagnosis Type 2 diabetes mellitus without complication, without long-term current use of insulin (CMS/HCC)- Primary Hyperlipidemia, unspecified hyperlipidemia type (CMS/HCC) BREONNA (generalized anxiety disorder) (CMS/HCC) Generalized anxiety disorder Primary hypertension (CMS/HCC) Unspecified essential hypertension Type 2 diabetes mellitus with stage 3a chronic kidney disease, without long-term current use of insulin (HCC) (CMS/HCC) Atherosclerosis of [place] coronary artery of [place] heart without angina pectoris (CMS/HCC) Chronic heart failure with preserved ejection fraction (CMS/HCC) Current every day smoker BREONNA (generalized anxiety disorder) (CMS/HCC)- Primary Generalized anxiety disorder Generalized anxiety disorder (CMS/HCC) Generalized anxiety disorder Type 2 diabetes mellitus with stage 3a chronic kidney disease, without long-term current use of insulin (HCC) (CMS/HCC)- Primary Type 2 diabetes mellitus with diabetic polyneuropathy (CMS/HCC) Generalized anxiety disorder (CMS/HCC) Generalized anxiety disorder BREONNA (generalized anxiety disorder) (CMS/HCC) Generalized anxiety disorder Primary hypertension (CMS/HCC) Unspecified essential hypertension Hyperlipidemia, unspecified hyperlipidemia type (CMS/HCC) Primary hypertension (CMS/HCC)- Primary Unspecified essential hypertension Type 2 diabetes mellitus with stage 3a chronic kidney disease, without long-term current use of insulin (HCC) (CMS/HCC) Mixed hyperlipidemia ([facility]/HCC) Mixed hyperlipidemia Generalized anxiety disorder ([facility]) Generalized anxiety disorder Current every day smoker Type 2 diabetes mellitus with diabetic polyneuropathy, without long-term current use of insulin ([facility]) Dysphagia, unspecified type Choking due to food (regurgitated), initial encounter BREONNA (generalized anxiety disorder) ([facility]) Generalized anxiety disorder Smoker Tobacco use disorder Primary hypertension ([facility])- Primary Unspecified essential hypertension Gastroesophageal reflux disease without esophagitis Esophageal reflux BREONNA (generalized anxiety disorder) ([facility]) Generalized anxiety disorder Hx of psoriasis Type 2 diabetes mellitus with diabetic polyneuropathy ([facility]) documented in this encounter [facility] HealthcareEvaluation note* Diagnosis Type 2 diabetes mellitus without complication, without long-term current use of insulin ([facility])- Primary Hyperlipidemia, unspecified hyperlipidemia type ([facility]) BREONNA (generalized anxiety disorder) ([facility]) Generalized anxiety disorder Primary hypertension ([facility]) Unspecified essential hypertension Type 2 diabetes mellitus with stage 3a chronic kidney disease, without long-term current use of insulin ([facility]) ([facility]) Atherosclerosis of [place] coronary artery of [place] heart without angina pectoris ([facility]) Chronic heart failure with preserved ejection fraction ([facility]) Current every day smoker BREONNA (generalized anxiety disorder) ([facility])- Primary Generalized anxiety disorder Generalized anxiety disorder ([facility]) Generalized anxiety disorder Type 2 diabetes mellitus with stage 3a chronic kidney disease, without long-term current use of insulin (HCC) ([facility])- Primary Type 2 diabetes mellitus with diabetic polyneuropathy ([facility]) Generalized anxiety disorder ([facility]) Generalized anxiety disorder BREONNA (generalized anxiety disorder) ([facility] Generalized anxiety disorder Primary hypertension ([facility]) Unspecified essential hypertension Hyperlipidemia, unspecified hyperlipidemia type ([facility]/HCC) Primary hypertension ([facility])- Primary Unspecified essential hypertension Type 2 diabetes mellitus with stage 3a chronic kidney disease, without long-term current use of insulin (HCC) ([facility] Mixed hyperlipidemia ([facility]) Mixed hyperlipidemia Generalized anxiety disorder ([facility]) Generalized anxiety disorder Current every day smoker Type 2 diabetes mellitus with diabetic polyneuropathy, without long-term current use of insulin ([facility]) Dysphagia, unspecified type Choking due to food (regurgitated), initial encounter BREONNA (generalized anxiety disorder) ([facility]) Generalized anxiety disorder Smoker Tobacco use disorder Primary hypertension ([facility])- Primary Unspecified essential hypertension Gastroesophageal reflux disease without esophagitis Esophageal reflux BREONNA (generalized anxiety disorder) ([facility]) Generalized anxiety disorder Hx of psoriasis Type 2 diabetes mellitus with diabetic polyneuropathy ([facility] Generalized anxiety disorder ([facility]) Generalized anxiety disorder BREONNA (generalized anxiety disorder) ([facility]) Generalized anxiety disorder Type 2 diabetes mellitus with stage 3a chronic kidney disease, without long-term current use of insulin ([facility]) ([facility] Primary hypertension ([facility]) Unspecified essential hypertension Gastroesophageal reflux disease without esophagitis Esophageal reflux Hyperlipidemia, unspecified ([facility]) documented in this encounter [facility] HealthcareEvaluation note* Diagnosis Primary hypertension ([facility])- Primary Unspecified essential hypertension Type 2 diabetes mellitus with stage 3a chronic kidney disease, without long-term current use of insulin ([facility]) ([facility] Mixed hyperlipidemia ([facility]) Mixed hyperlipidemia Generalized anxiety disorder ([facility]) Generalized anxiety disorder Current every day smoker Type 2 diabetes mellitus with diabetic polyneuropathy, without long-term current use of insulin ([facility]) Dysphagia, unspecified type Choking due to food (regurgitated), initial encounter BREONNA (generalized anxiety disorder) ([facility]) Generalized anxiety disorder Smoker Tobacco use disorder documented in this encounter [facility] HealthcareEvaluation note* Diagnosis Hallux rigidus of left foot- Primary Type 2 diabetes mellitus with stage 3a chronic kidney disease, without long-term current use of insulin ([facility]) ([facility]) Hallux rigidus of right foot Type 2 diabetes mellitus with diabetic polyneuropathy, unspecified whether intermediate school teacher insulin use ([facility]) Onychomycosis Dermatophytosis of nail Toe pain, bilateral documented in this encounter [facility] HealthcareEvaluation note* Diagnosis Type 2 diabetes mellitus without complication, without long-term current use of insulin ([facility])- Primary Hyperlipidemia, unspecified hyperlipidemia type ([facility]) BREONNA (generalized anxiety disorder) ([facility]) Generalized anxiety disorder Primary hypertension ([facility]) Unspecified essential hypertension Type 2 diabetes mellitus with stage 3a chronic kidney disease, without long-term current use of insulin ([facility]) ([facility]) Atherosclerosis of [place] coronary artery of [place] heart without angina pectoris ([facility]) Chronic heart failure with preserved ejection fraction ([facility]) Current every day smoker BREONNA (generalized anxiety disorder) ([facility]/HCC)- Primary Generalized anxiety disorder Generalized anxiety disorder ([facility]/HCC) Generalized anxiety disorder Type 2 diabetes mellitus with stage 3a chronic kidney disease, without long-term current use of insulin (HCC) ([facility])- Primary Type 2 diabetes mellitus with diabetic polyneuropathy ([facility]) Generalized anxiety disorder ([facility] Generalized anxiety disorder BREONNA (generalized anxiety disorder) ([facility]/HCC) Generalized anxiety disorder Primary hypertension ([facility]) Unspecified essential hypertension Hyperlipidemia, unspecified hyperlipidemia type ([facility]/HCC) Primary hypertension ([facility]/HCC)- Primary Unspecified essential hypertension Type 2 diabetes mellitus with stage 3a chronic kidney disease, without long-term current use of insulin (HCC) ([facility] Mixed hyperlipidemia ([facility]) Mixed hyperlipidemia Generalized anxiety disorder ([facility]) Generalized anxiety disorder Current every day smoker Type 2 diabetes mellitus with diabetic polyneuropathy, without long-term current use of insulin ([facility]) Dysphagia, unspecified type Choking due to food (regurgitated), initial encounter BREONNA (generalized anxiety disorder) ([facility]) Generalized anxiety disorder Smoker Tobacco use disorder Primary hypertension ([facility])- Primary Unspecified essential hypertension Gastroesophageal reflux disease without esophagitis Esophageal reflux BREONNA (generalized anxiety disorder) ([facility]) Generalized anxiety disorder Hx of psoriasis Type 2 diabetes mellitus with diabetic polyneuropathy ([facility] Generalized anxiety disorder ([facility]) Generalized anxiety disorder BREONNA (generalized anxiety disorder) ([facility]) Generalized anxiety disorder Type 2 diabetes mellitus with stage 3a chronic kidney disease, without long-term current use of insulin (HCC) ([facility]) Primary hypertension ([facility]) Unspecified essential hypertension Gastroesophageal reflux disease without esophagitis Esophageal reflux Hyperlipidemia, unspecified ([facility]) Type 2 diabetes mellitus with diabetic polyneuropathy ([facility]) documented in this encounter [facility] HealthcareEvaluation note* Diagnosis Type 2 diabetes mellitus without complication, without long-term current use of insulin ([facility])- Primary Hyperlipidemia, unspecified hyperlipidemia type ([facility]) BREONNA (generalized anxiety disorder) ([facility]) Generalized anxiety disorder Primary hypertension ([facility]) Unspecified essential hypertension Type 2 diabetes mellitus with stage 3a chronic kidney disease, without long-term current use of insulin (HCC) ([facility]) Atherosclerosis of [place] coronary artery of [place] heart without angina pectoris ([facility] Chronic heart failure with preserved ejection fraction ([facility]) Current every day smoker BREONNA (generalized anxiety disorder) ([facility])- Primary Generalized anxiety disorder Generalized anxiety disorder ([facility]) Generalized anxiety disorder Type 2 diabetes mellitus with stage 3a chronic kidney disease, without long-term current use of insulin ([facility]) ([facility])- Primary Type 2 diabetes mellitus with diabetic polyneuropathy ([facility]) Generalized anxiety disorder ([facility] Generalized anxiety disorder BREONNA (generalized anxiety disorder) ([facility]) Generalized anxiety disorder Primary hypertension ([facility]) Unspecified essential hypertension Hyperlipidemia, unspecified hyperlipidemia type ([facility]) Primary hypertension ([facility])- Primary Unspecified essential hypertension Type 2 diabetes mellitus with stage 3a chronic kidney disease, without long-term current use of insulin ([facility]) ([facility] Mixed hyperlipidemia ([facility]) Mixed hyperlipidemia Generalized anxiety disorder ([facility]) Generalized anxiety disorder Current every day smoker Type 2 diabetes mellitus with diabetic polyneuropathy, without long-term current use of insulin ([facility]) Dysphagia, unspecified type Choking due to food (regurgitated), initial encounter BREONNA (generalized anxiety disorder) ([facility]) Generalized anxiety disorder Smoker Tobacco use disorder Primary hypertension ([facility])- Primary Unspecified essential hypertension Gastroesophageal reflux disease without esophagitis Esophageal reflux BREONNA (generalized anxiety disorder) ([facility]) Generalized anxiety disorder Hx of psoriasis Type 2 diabetes mellitus with diabetic polyneuropathy ([facility] Generalized anxiety disorder ([facility]) Generalized anxiety disorder BREONNA (generalized anxiety disorder) ([facility]) Generalized anxiety disorder Type 2 diabetes mellitus with stage 3a chronic kidney disease, without long-term current use of insulin (HCC) ([facility] Primary hypertension ([facility] [facility]) Unspecified essential hypertension Gastroesophageal reflux disease without esophagitis Esophageal reflux Hyperlipidemia, unspecified ([facility]) Type 2 diabetes mellitus with stage 3a chronic kidney disease, without long-term current use of insulin (HCC) ([facility])- Primary Generalized anxiety disorder ([facility] Generalized anxiety disorder Type 2 diabetes mellitus with diabetic polyneuropathy ([facility]) Hyperlipidemia, unspecified ([facility]) Primary hypertension ([facility]) Unspecified essential hypertension documented in this encounter [facility] HealthcareEvaluation note* Diagnosis Type 2 diabetes mellitus without complication, without long-term current use of insulin- Primary Hyperlipidemia, unspecified hyperlipidemia type ([facility]) BREONNA (generalized anxiety disorder) ([facility]) Generalized anxiety disorder Primary hypertension ([facility]) Unspecified essential hypertension Type 2 diabetes mellitus with stage 3a chronic kidney disease, without long-term current use of insulin ([facility]) ([facility]) Atherosclerosis of [place] coronary artery of [place] heart without angina pectoris ([facility] Chronic heart failure with preserved ejection fraction ([facility]) Current every day smoker BREONNA (generalized anxiety disorder) ([facility])- Primary Generalized anxiety disorder Generalized anxiety disorder ([facility]) Generalized anxiety disorder Type 2 diabetes mellitus with stage 3a chronic kidney disease, without long-term current use of insulin ([facility]) ([facility])- Primary Type 2 diabetes mellitus with diabetic polyneuropathy ([facility]) Generalized anxiety disorder ([facility] Generalized anxiety disorder RBEONNA (generalized anxiety disorder) ([facility] Generalized anxiety disorder Primary hypertension ([facility]) Unspecified essential hypertension Hyperlipidemia, unspecified hyperlipidemia type ([facility] Primary hypertension ([facility])- Primary Unspecified essential hypertension Type 2 diabetes mellitus with stage 3a chronic kidney disease, without long-term current use of insulin ([facility]) ([facility] Mixed hyperlipidemia ([facility] Mixed hyperlipidemia Generalized anxiety disorder ([facility]) Generalized anxiety disorder Current every day smoker Type 2 diabetes mellitus with diabetic polyneuropathy, without long-term current use of insulin ([facility]) Dysphagia, unspecified type Choking due to food (regurgitated), initial encounter BREONNA (generalized anxiety disorder) ([facility]) Generalized anxiety disorder Smoker Tobacco use disorder Primary hypertension ([facility])- Primary Unspecified essential hypertension Gastroesophageal reflux disease without esophagitis Esophageal reflux BREONNA (generalized anxiety disorder) ([facility]) Generalized anxiety disorder Hx of psoriasis Type 2 diabetes mellitus with diabetic polyneuropathy ([facility] Generalized anxiety disorder ([facility]) Generalized anxiety disorder BREONNA (generalized anxiety disorder) ([facility]) Generalized anxiety disorder Type 2 diabetes mellitus with stage 3a chronic kidney disease, without long-term current use of insulin (HCC) ([facility] Primary hypertension ([facility]) Unspecified essential hypertension Gastroesophageal reflux disease without esophagitis Esophageal reflux Hyperlipidemia, unspecified ([facility]) Type 2 diabetes mellitus with stage 3a chronic kidney disease, without long-term current use of insulin (HCC) ([facility])- Primary Generalized anxiety disorder ([facility]) Generalized anxiety disorder Type 2 diabetes mellitus with diabetic polyneuropathy ([facility]) Hyperlipidemia, unspecified ([facility]) Primary hypertension ([facility]) Unspecified essential hypertension Neoplasm of uncertain behavior of skin- Primary Hallux rigidus of left foot Hallux rigidus of right foot Type 2 diabetes mellitus with diabetic polyneuropathy, unspecified whether intermediate school teacher insulin use ([facility]) Pain due to onychomycosis of toenails of both feet Verruca plantaris Plantar wart Foot pain, left Pain in soft tissues of limb Foot pain, right Pain in soft tissues of limb documented in this encounter [facility] HealthcareEvaluation note* Diagnosis Type 2 diabetes mellitus without complication, without long-term current use of insulin- Primary Hyperlipidemia, unspecified hyperlipidemia type ([facility]) BREONNA (generalized anxiety disorder) ([facility]) Generalized anxiety disorder Primary hypertension ([facility]) Unspecified essential hypertension Type 2 diabetes mellitus with stage 3a chronic kidney disease, without long-term current use of insulin ([facility]) ([facility]) Atherosclerosis of [place] coronary artery of [place] heart without angina pectoris ([facility]) Chronic heart failure with preserved ejection fraction ([facility]) Current every day smoker BREONNA (generalized anxiety disorder) ([facility])- Primary Generalized anxiety disorder Generalized anxiety disorder ([facility]) Generalized anxiety disorder Type 2 diabetes mellitus with stage 3a chronic kidney disease, without long-term current use of insulin ([facility]) ([facility])- Primary Type 2 diabetes mellitus with diabetic polyneuropathy ([facility]) Generalized anxiety disorder ([facility] Generalized anxiety disorder BREONNA (generalized anxiety disorder) ([facility] Generalized anxiety disorder Primary hypertension ([facility]) Unspecified essential hypertension Hyperlipidemia, unspecified hyperlipidemia type ([facility] Primary hypertension ([facility])- Primary Unspecified essential hypertension Type 2 diabetes mellitus with stage 3a chronic kidney disease, without long-term current use of insulin ([facility]) ([facility] Mixed hyperlipidemia ([facility]) Mixed hyperlipidemia Generalized anxiety disorder ([facility]) Generalized anxiety disorder Current every day smoker Type 2 diabetes mellitus with diabetic polyneuropathy, without long-term current use of insulin ([facility]) Dysphagia, unspecified type Choking due to food (regurgitated), initial encounter BREONNA (generalized anxiety disorder) ([facility]) Generalized anxiety disorder Smoker Tobacco use disorder Primary hypertension ([facility])- Primary Unspecified essential hypertension Gastroesophageal reflux disease without esophagitis Esophageal reflux BREONNA (generalized anxiety disorder) (CMS/HCC) Generalized anxiety disorder Hx of psoriasis Type 2 diabetes mellitus with diabetic polyneuropathy ([facility]/HCC) Generalized anxiety disorder ([facility]/HCC) Generalized anxiety disorder BREONNA (generalized anxiety disorder) ([facility]/HCC) Generalized anxiety disorder Type 2 diabetes mellitus with stage 3a chronic kidney disease, without long-term current use of insulin (HCC) ([facility]) Primary hypertension ([facility]/HCC) Unspecified essential hypertension Gastroesophageal reflux disease without esophagitis Esophageal reflux Hyperlipidemia, unspecified ([facility]) Type 2 diabetes mellitus with stage 3a chronic kidney disease, without long-term current use of insulin (HCC) ([facility])- Primary Generalized anxiety disorder ([facility]/HCC) Generalized anxiety disorder Type 2 diabetes mellitus with diabetic polyneuropathy ([facility]) Hyperlipidemia, unspecified ([facility]/HCC) Primary hypertension ([facility]) Unspecified essential hypertension Verruca plantaris- Primary Plantar wart Foot pain, left Pain in soft tissues of limb Foot pain, right Pain in soft tissues of limb Hallux rigidus of right foot Hallux rigidus of left foot Type 2 diabetes mellitus with diabetic polyneuropathy, unspecified whether intermediate school teacher insulin use ([facility]) documented in this encounter [facility] HealthcareEvaluation note* Diagnosis Type 2 diabetes mellitus without complication, without long-term current use of insulin- Primary Hyperlipidemia, unspecified hyperlipidemia type ([facility]) BREONNA (generalized anxiety disorder) ([facility]/HCC) Generalized anxiety disorder Primary hypertension ([facility]) Unspecified essential hypertension Type 2 diabetes mellitus with stage 3a chronic kidney disease, without long-term current use of insulin ([facility]) ([facility]) Atherosclerosis of [place] coronary artery of [place] heart without angina pectoris ([facility]) Chronic heart failure with preserved ejection fraction ([facility]) Current every day smoker BREONNA (generalized anxiety disorder) ([facility]/HCC)- Primary Generalized anxiety disorder Generalized anxiety disorder ([facility]/HCC) Generalized anxiety disorder Type 2 diabetes mellitus with stage 3a chronic kidney disease, without long-term current use of insulin (HCC) ([facility])- Primary Type 2 diabetes mellitus with diabetic polyneuropathy ([facility]) Generalized anxiety disorder ([facility]/HCC) Generalized anxiety disorder BREONNA (generalized anxiety disorder) ([facility]/HCC) Generalized anxiety disorder Primary hypertension ([facility]) Unspecified essential hypertension Hyperlipidemia, unspecified hyperlipidemia type ([facility]/HCC) Primary hypertension ([facility]/HCC)- Primary Unspecified essential hypertension Type 2 diabetes mellitus with stage 3a chronic kidney disease, without long-term current use of insulin (HCC) ([facility] Mixed hyperlipidemia ([facility]) Mixed hyperlipidemia Generalized anxiety disorder ([facility]) Generalized anxiety disorder Current every day smoker Type 2 diabetes mellitus with diabetic polyneuropathy, without long-term current use of insulin ([facility]) Dysphagia, unspecified type Choking due to food (regurgitated), initial encounter BREONNA (generalized anxiety disorder) ([facility]) Generalized anxiety disorder Smoker Tobacco use disorder Primary hypertension ([facility]/HCC)- Primary Unspecified essential hypertension Gastroesophageal reflux disease without esophagitis Esophageal reflux BREONNA (generalized anxiety disorder) ([facility]) Generalized anxiety disorder Hx of psoriasis Type 2 diabetes mellitus with diabetic polyneuropathy ([facility]) Generalized anxiety disorder ([facility]) Generalized anxiety disorder BREONNA (generalized anxiety disorder) ([facility]) Generalized anxiety disorder Type 2 diabetes mellitus with stage 3a chronic kidney disease, without long-term current use of insulin ([facility]) ([facility] Primary hypertension ([facility]) Unspecified essential hypertension Gastroesophageal reflux disease without esophagitis Esophageal reflux Hyperlipidemia, unspecified ([facility]) Type 2 diabetes mellitus with stage 3a chronic kidney disease, without long-term current use of insulin ([facility]) ([facility])- Primary General[facility] anxiety disorder ([facility]) Generalized anxiety disorder Type 2 diabetes mellitus with diabetic polyneuropathy ([facility]) Hyperlipidemia, unspecified ([facility]) Primary hypertension ([facility]) Unspecified essential hypertension Contusion of left foot, initial encounter- Primary Verruca plantaris Plantar wart Foot pain, left Pain in soft tissues of limb Foot pain, right Pain in soft tissues of limb Type 2 diabetes mellitus with diabetic polyneuropathy, unspecified whether intermediate school teacher insulin use ([facility]) documented in this encounter [facility] HealthcareEvaluation note* Diagnosis Type 2 diabetes mellitus without complication, without long-term current use of insulin- Primary Hyperlipidemia, unspecified hyperlipidemia type ([facility]) BREONNA (generalized anxiety disorder) ([facility]) Generalized anxiety disorder Primary hypertension ([facility]) Unspecified essential hypertension Type 2 diabetes mellitus with stage 3a chronic kidney disease, without long-term current use of insulin (HCC) ([facility]) Atherosclerosis of [place] coronary artery of [place] heart without angina pectoris ([facility] Chronic heart failure with preserved ejection fraction ([facility] Current every day smoker BREONNA (generalized anxiety disorder) ([facility])- Primary Generalized anxiety disorder Generalized anxiety disorder ([facility]) Generalized anxiety disorder Type 2 diabetes mellitus with stage 3a chronic kidney disease, without long-term current use of insulin ([facility]) ([facility])- Primary Type 2 diabetes mellitus with diabetic polyneuropathy ([facility] Generalized anxiety disorder ([facility] Generalized anxiety disorder BREONNA (generalized anxiety disorder) ([facility] Generalized anxiety disorder Primary hypertension ([facility]) Unspecified essential hypertension Hyperlipidemia, unspecified hyperlipidemia type ([facility]) Primary hypertension ([facility])- Primary Unspecified essential hypertension Type 2 diabetes mellitus with stage 3a chronic kidney disease, without long-term current use of insulin ([facility]) ([facility] Mixed hyperlipidemia ([facility] Mixed hyperlipidemia Generalized anxiety disorder ([facility]) Generalized anxiety disorder Current every day smoker Type 2 diabetes mellitus with diabetic polyneuropathy, without long-term current use of insulin ([facility]) Dysphagia, unspecified type Choking due to food (regurgitated), initial encounter BREONNA (generalized anxiety disorder) ([facility]) Generalized anxiety disorder Smoker Tobacco use disorder Primary hypertension ([facility])- Primary Unspecified essential hypertension Gastroesophageal reflux disease without esophagitis Esophageal reflux BREONNA (generalized anxiety disorder) ([facility]) Generalized anxiety disorder Hx of psoriasis Type 2 diabetes mellitus with diabetic polyneuropathy ([facility] Generalized anxiety disorder ([facility]) Generalized anxiety disorder BREONNA (generalized anxiety disorder) ([facility]) Generalized anxiety disorder Type 2 diabetes mellitus with stage 3a chronic kidney disease, without long-term current use of insulin ([facility]) ([facility] Primary hypertension ([facility] Unspecified essential hypertension Gastroesophageal reflux disease without esophagitis Esophageal reflux Hyperlipidemia, unspecified ([facility]) Type 2 diabetes mellitus with stage 3a chronic kidney disease, without long-term current use of insulin ([facility]) ([facility])- Primary Generalized anxiety disorder ([facility]) Generalized anxiety disorder Type 2 diabetes mellitus with diabetic polyneuropathy ([facility]) Hyperlipidemia, unspecified ([facility]) Primary hypertension ([facility]) Unspecified essential hypertension Contusion of left foot, initial encounter- Primary Verruca plantaris Plantar wart Foot pain, left Pain in soft tissues of limb Foot pain, right Pain in soft tissues of limb Type 2 diabetes mellitus with diabetic polyneuropathy, unspecified whether intermediate school teacher insulin use ([facility]) documented in this encounter [facility] HealthcareEvaluation note* Diagnosis Type 2 diabetes mellitus without complication, without long-term current use of insulin- Primary Hyperlipidemia, unspecified hyperlipidemia type ([facility]) BREONNA (generalized anxiety disorder) ([facility]) Generalized anxiety disorder Primary hypertension ([facility]) Unspecified essential hypertension Type 2 diabetes mellitus with stage 3a chronic kidney disease, without long-term current use of insulin ([facility]) ([facility]) Atherosclerosis of [place] coronary artery of [place] heart without angina pectoris ([facility]) Chronic heart failure with preserved ejection fraction ([facility]) Current every day smoker BREONNA (generalized anxiety disorder) ([facility])- Primary Generalized anxiety disorder Generalized anxiety disorder ([facility]) Generalized anxiety disorder Type 2 diabetes mellitus with stage 3a chronic kidney disease, without long-term current use of insulin ([facility]) ([facility])- Primary Type 2 diabetes mellitus with diabetic polyneuropathy ([facility]) Generalized anxiety disorder ([facility]) Generalized anxiety disorder BREONNA (generalized anxiety disorder) ([facility] Generalized anxiety disorder Primary hypertension ([facility]) Unspecified essential hypertension Hyperlipidemia, unspecified hyperlipidemia type ([facility]) Primary hypertension ([facility])- Primary Unspecified essential hypertension Type 2 diabetes mellitus with stage 3a chronic kidney disease, without long-term current use of insulin ([facility]) ([facility] Mixed hyperlipidemia ([facility]) Mixed hyperlipidemia Generalized anxiety disorder ([facility]) Generalized anxiety disorder Current every day smoker Type 2 diabetes mellitus with diabetic polyneuropathy, without long-term current use of insulin ([facility]) Dysphagia, unspecified type Choking due to food (regurgitated), initial encounter BREONNA (generalized anxiety disorder) ([facility]) Generalized anxiety disorder Smoker Tobacco use disorder Primary hypertension ([facility])- Primary Unspecified essential hypertension Gastroesophageal reflux disease without esophagitis Esophageal reflux BREONNA (generalized anxiety disorder) ([facility]) Generalized anxiety disorder Hx of psoriasis Type 2 diabetes mellitus with diabetic polyneuropathy ([facility]) Generalized anxiety disorder ([facility]) Generalized anxiety disorder BREONNA (generalized anxiety disorder) ([facility]) Generalized anxiety disorder Type 2 diabetes mellitus with stage 3a chronic kidney disease, without long-term current use of insulin ([facility]) ([facility] Primary hypertension ([facility]) Unspecified essential hypertension Gastroesophageal reflux disease without esophagitis Esophageal reflux Hyperlipidemia, unspecified ([facility]/HCC) Type 2 diabetes mellitus with stage 3a chronic kidney disease, without long-term current use of insulin (HCC) ([facility])- Primary Generalized anxiety disorder ([facility]) Generalized anxiety disorder Type 2 diabetes mellitus with diabetic polyneuropathy ([facility]) Hyperlipidemia, unspecified ([facility]/HCC) Primary hypertension ([facility]/HCC) Unspecified essential hypertension Type 2 diabetes mellitus with stage 3a chronic kidney disease, without long-term current use of insulin (HCC) ([facility])- Primary Type 2 diabetes mellitus with diabetic polyneuropathy, unspecified whether intermediate school teacher insulin use ([facility]) Atherosclerosis of [place] coronary artery of [place] heart without angina pectoris ([facility]) Chronic heart failure with preserved ejection fraction ([facility]) Primary hypertension ([facility]) Unspecified essential hypertension Gastroesophageal reflux disease, unspecified whether esophagitis present CKD (chronic kidney disease), symptom management only, stage 3 (moderate) ([facility]) ([facility]) Obesity (BMI 30-39.9) Current every day smoker BREONNA (generalized anxiety disorder) ([facility]) Generalized anxiety disorder Mixed hyperlipidemia ([facility]) Mixed hyperlipidemia Tobacco dependence Tobacco use disorder Prostate cancer screening Special screening for malignant neoplasm of prostate Generalized anxiety disorder ([facility]) Generalized anxiety disorder Gastroesophageal reflux disease without esophagitis Esophageal reflux Hyperlipidemia, unspecified ([facility]) Verruca plantaris- Primary Plantar wart Foot pain, left Pain in soft tissues of limb Foot pain, right Pain in soft tissues of limb Type 2 diabetes mellitus with diabetic polyneuropathy, unspecified whether intermediate school teacher insulin use ([facility]) documented in this encounter [facility] HealthcareEvaluation note* Diagnosis Type 2 diabetes mellitus without complication, without long-term current use of insulin- Primary Hyperlipidemia, unspecified hyperlipidemia type ([facility]) BREONNA (generalized anxiety disorder) ([facility]) Generalized anxiety disorder Primary hypertension ([facility]) Unspecified essential hypertension Type 2 diabetes mellitus with stage 3a chronic kidney disease, without long-term current use of insulin (HCC) ([facility]) Atherosclerosis of [place] coronary artery of [place] heart without angina pectoris ([facility]) Chronic heart failure with preserved ejection fraction ([facility]) Current every day smoker BREONNA (generalized anxiety disorder) ([facility])- Primary Generalized anxiety disorder Generalized anxiety disorder ([facility]/HCC) Generalized anxiety disorder Type 2 diabetes mellitus with stage 3a chronic kidney disease, without long-term current use of insulin (HCC) ([facility])- Primary Type 2 diabetes mellitus with diabetic polyneuropathy ([facility]) Generalized anxiety disorder ([facility] Generalized anxiety disorder BREONNA (generalized anxiety disorder) ([facility]/HCC[facility] Generalized anxiety disorder Primary hypertension ([facility]) Unspecified essential hypertension Hyperlipidemia, unspecified hyperlipidemia type ([facility]) Primary hypertension ([facility])- Primary Unspecified essential hypertension Type 2 diabetes mellitus with stage 3a chronic kidney disease, without long-term current use of insulin (HCC) ([facility] Mixed hyperlipidemia ([facility]) Mixed hyperlipidemia Generalized anxiety disorder ([facility]) Generalized anxiety disorder Current every day smoker Type 2 diabetes mellitus with diabetic polyneuropathy, without long-term current use of insulin ([facility]) Dysphagia, unspecified type Choking due to food (regurgitated), initial encounter BREONNA (generalized anxiety disorder) ([facility]) Generalized anxiety disorder Smoker Tobacco use disorder Primary hypertension ([facility])- Primary Unspecified essential hypertension Gastroesophageal reflux disease without esophagitis Esophageal reflux BREONNA (generalized anxiety disorder) ([facility]) Generalized anxiety disorder Hx of psoriasis Type 2 diabetes mellitus with diabetic polyneuropathy ([facility]) Generalized anxiety disorder ([facility]) Generalized anxiety disorder BREONNA (generalized anxiety disorder) ([facility]) Generalized anxiety disorder Type 2 diabetes mellitus with stage 3a chronic kidney disease, without long-term current use of insulin ([facility]) ([facility] Primary hypertension ([facility]) Unspecified essential hypertension Gastroesophageal reflux disease without esophagitis Esophageal reflux Hyperlipidemia, unspecified ([facility]) Type 2 diabetes mellitus with stage 3a chronic kidney disease, without long-term current use of insulin (HCC) ([facility])- Primary Generalized anxiety disorder ([facility]) Generalized anxiety disorder Type 2 diabetes mellitus with diabetic polyneuropathy ([facility]) Hyperlipidemia, unspecified ([facility]) Primary hypertension ([facility]) Unspecified essential hypertension Type 2 diabetes mellitus with stage 3a chronic kidney disease, without long-term current use of insulin ([facility]) ([facility])- Primary Type 2 diabetes mellitus with diabetic polyneuropathy, unspecified whether shelter insulin use ([facility]) Atherosclerosis of [place] coronary artery of [place] heart without angina pectoris ([facility]) Chronic heart failure with preserved ejection fraction ([facility]) Primary hypertension ([facility]) Unspecified essential hypertension Gastroesophageal reflux disease, unspecified whether esophagitis present CKD (chronic kidney disease), symptom management only, stage 3 (moderate) (HCC) ([facility]) Obesity (BMI 30-39.9) Current every day smoker BREONNA (generalized anxiety disorder) ([facility]) Generalized anxiety disorder Mixed hyperlipidemia ([facility]) Mixed hyperlipidemia Tobacco dependence Tobacco use disorder Prostate cancer screening Special screening for malignant neoplasm of prostate Generalized anxiety disorder ([facility]) Generalized anxiety disorder Gastroesophageal reflux disease without esophagitis Esophageal reflux Hyperlipidemia, unspecified ([facility]) Open wounds involving multiple regions of upper extremity- Primary Verruca plantaris- Primary Plantar wart Foot pain, left Pain in soft tissues of limb Foot pain, right Pain in soft tissues of limb Hallux rigidus of right foot Hallux rigidus of left foot Type 2 diabetes mellitus with diabetic polyneuropathy, unspecified whether shelter insulin use ([facility]) Pain due to onychomycosis of toenails of both feet documented [facility]* The patient states he has been generally stable since the last visit. Comorbid Illnesses: diabetes m ellitus, hypertension and hyperlipidemia. * Symptoms: denies chest [...] medication regimen. He denies medication side effects. [facility] [employer] [facility] Work Phone: History of Present illness [...] medication regimen. He denies medication side effects. [facility] [address] DO Work Phone: History of Present illness Narrative* Grant Lozano, JEREMIE - 09/04/2024 10:00 AM EDT Patient: Roxane Bonner : 1960 PCP: Ajay Gates MD SUBJECTIVE Patient presents today for follow up of skin lesion/neoplasm of unknown origin to the left and right foot Pt states that previous treatment of acid tx with some improvement Pt rates pain the pain on a 1-10 scale an intensity of 4 Pt presents today for followup. Patient is DM2 with history of peripheral neuropathy Patient also has recent history of dropping objects on right great toe with blackened nail and has pain to the nail but denies any drainage but states painful from time to time particularly in shoe gear and occurred proximally 3 weeks ago Allergies: Allergies Allergen Reactions Penicillins Sulfa Antibiotics Past Medical History: Past Medical History: Diagnosis Date Chronic diastolic CHF (congestive heart failure) (CMS/HCC) CKD (chronic kidney disease), symptom management only, stage 3 (moderate) (HCC) (CMS/HCC) DM II (diabetes mellitus, type II), controlled (CMS/HCC) Elevated cholesterol (CMS/HCC) Fracture RT LF BREONNA (generalized anxiety disorder) (CMS/HCC) Heart disease History of medical problems cyst on cheek HLD (hyperlipidemia) (CMS/HCC) Hypertension (CMS/HCC) Kidney stones Neuropathy of foot Smoking Type 2 diabetes mellitus with peripheral neuropathy (CMS/HCC) Type 2 diabetes mellitus with stage 3 chronic kidney disease, without long-term current use of insulin, unspecified whether stage 3a or 3b CKD (HCC) (CMS/HCC) Medications: Current Outpatient Medications: ASPIRIN 81 MG chewable tablet, Chew 81 mg in the morning., Disp: , Rfl: Blood Pressure Monitoring (Blood Pressure Cuff) misc, 1 each in the morning and 1 each before bedtime., Disp: 1 each, Rfl: 0 Continuous Glucose Controller Repairer And Tester (Dexcom G7 Controller Repairer And Tester) device, 1 each continuously, Disp: 1 each, Rfl: 0 Continuous Glucose Sensor (Dexcom G7 Sensor) misc, 1 each continuously, Disp: 3 each, Rfl: 11 empagliflozin (Jardiance) 25 MG, Take 1 tablet (25 mg) by mouth Daily, Disp: 90 tablet, Rfl: 1 escitalopram (Lexapro) 20 MG tablet, Take 1 tablet (20 mg) by mouth Daily, Disp: 30 tablet, Rfl: 2 glimepiride (Amaryl) 2 MG tablet, Take 1 tablet (2 mg) by mouth in the morning. Take before meals.,Disp: 90 tablet, Rfl: 0 hydrOXYzine HCl (Atarax) 25 MG tablet, Take 1 tablet (25 mg) by mouth every 8 (eight) hours if needed for itching, Disp: 120 tablet, Rfl: 3 isosorbide mononitrate ER (Imdur) 30 MG 24 hr tablet, Take 30 mg by mouth in the morning., Disp: , Rfl: lisinopril 10 MG tablet, Take 1 tablet (10 mg) by mouth Daily, Disp: 90 tablet, Rfl: 1 metFORMIN (Glucophage) 1000 MG tablet, Take 1 tablet (1,000 mg) by mouth in the morning and 1 tablet (1,000 mg) in the evening. Take with meals., Disp: 180 tablet, Rfl: 1 Methylcobalamin (Y30-HFUORC PO), Take 1,000 mg by mouth 1 (one) time each day, Disp: , Rfl: metoprolol succinate XL (Toprol-XL) 25 MG 24 hr tablet, Take 25 mg by mouth Daily, Disp: , Rfl: nitroglycerin (Nitrodur) 0.2 MG/HR patch, Place 1 patch on the skin Daily, Disp: , Rfl: nitroglycerin (Nitrostat) 0.4 MG SL tablet, Place 0.4 mg under the tongue every 5 (five) minutes ifneeded for chest pain, Disp: , Rfl: omeprazole (PriLOSEC) [address] capsule, Take 1 capsule (20 mg) by mouth in the morning. Take beforemeals. Do not crush or chew.., Disp: 30 capsule, Rfl: 2 pregabalin (Lyrica) 150 MG capsule, Take 1 capsule (150 mg) by mouth in the morning and 1 capsule (150 mg) in the evening and 1 capsule (150 mg) before bedtime. Do not start before June 29, 2024., Disp: 270 capsule, Rfl: 0 rosuvastatin (Crestor) 20 MG tablet, Take 1 tablet (20 mg) by mouth Daily, Disp: 100 tablet, Rfl: 1 Social History: Social History Socioeconomic History Marital status: Unmarried Spouse name: Not on file Number of children: Not on file Years of education: Not on file Highest education level: Not on file Occupational History Not on file Tobacco Use Smoking status: Every Day Current packs/day: 1.00 Types: Cigarettes Passive exposure: Current Smokeless tobacco: Not on file Tobacco comments: Moderate cigarette smoker (10-19/day) Vaping Use Vaping status: Never Used Substance and Sexual Activity Alcohol use: Yes Comment: caffeine: 3-4 cups per day 5 hour energy drink ;3 -4 times a week Drug use: Defer Sexual activity: Defer Other Topics Concern Not on file Social History Narrative Not on file Social Drivers of Health Financial Resource Strain: Not on file Food Insecurity: Not on file Transportation Needs: Not on file Physical Activity: Not on file Stress: Not on file Social Connections: Not on file Intimate Partner Violence: Not on file Housing Stability: Not on file ROS: Gastrointestinal: denies abdominal pain, ulcers, or changes in appetite or bowel habits Musculoskeletal: Positive generalized arthritis to joints and denies loss of strength. Cardiovascular: denies CP, palpitations, irregular rhythms OBJECTIVE LE EXAM: DERM: Elongated thick yellow crumbly nails digits 1 through 10. Positive hair growth to bilateral feet. Bony prominence 1st MPJ regions bilaterally Nummular lesion measuring at the left and right mid arch regions measuring 0.1 cm x 0.1 cm. Left great toenail has area of blackening underneath the nail with negative drainage and negative erythema VASC: Palpable pedal pulses bilaterally NEURO: 5.07 Mullin Geraldine monofilament test intact to digits and forefoot bilaterally 125Hz tuning fork diminished to 1st MPJ bilaterally ORTHO: Positive pain on palpation to toenails of the left 1,2,3,4,5 toes and right 1,2,3,4,5 toes Range motion of 1st MPJ less than 65 degrees dorsiflexion bilaterally Positive pain on palpation to bilateral foot lesions Positive pain on palpation left great toenail ASSESSMENT 1. Verruca plantaris 2. Foot pain, left 3. Foot pain, right 4. Type 2 diabetes mellitus with diabetic polyneuropathy, unspecified whether intermediate school teacher insulin use([facility] SYSTEM/HCC) 5. Contusion of left foot, initial encounter PLAN Application of salinocaine acid medication to lesion/lesions located at right foot Informed pt of risks and benefits of procedure including high reoccurence rate, infection, pain andconsent given. Application of DSD post procedure. Application of salinocaine acid medication to lesion/lesions located at left foot Informed pt of risks and benefits of procedure including high reoccurence rate, infection, pain andconsent given. Application of DSD post procedure. Discuss total permanent nail avulsions or total temporary nail avulsion to left great toe today patient declined but did discuss if conditions worsen the contact Podiatry and discussed postoperative timeframe in detail and observe for any redness or signs of infection Grant Lozano DPM documented in this encounterNOThree Rivers HealthcareReason for referral (narrative)* Consultation (Routine) - Authorized Specialty Diagnoses / Procedures Referred By Bishnu bajwa Referred To Contact Cardiology Diagnoses Atherosclerosis of [place] coronary artery of [place] heart without angina pectoris Shortness of breath Anxiety Obesity (BMI 30-39.9) Type 2 diabetes mellitus without complication, with long-term current use of insulin ([facility]) Current every day smoker Procedures Follow Up In Cardiology Jacinto Marcelino DO [address] [facility] [address] [place] [address] Jacinto Marcelino DO [address] [facility] [address] [place] [address] Referral ID Status Reason Start Date Expiration Date V isits Requested Visits Authorized [id number] Authorized 06/07/2023 06/06/2024 1 1 [facility] Work Phone: Reason for referral (narrative)* Consultation (Routine) - Authorized Specialty Diagnoses / Procedures Referred By Bishnu bajwa Referred To Contact Dermatology Diagnoses Hx of psoriasis Procedures CT OFFICE/OUTPATIENT NEW HIGH MDM 60 MINUTES Cris Johnson NP [address] [place] [address] Wanda Chi, BALANCE WHEEL HAND FILER-PRINTER SLOTTER OPERATOR [address] [place] [address] Referral ID Status Reason Start Date Expiration Date Visits Requested Visits Authorized [id number] Authorized Specialty Services Required 02/13/2024 08/11/2024 1 1 * Consultation (Urgent) - Pending Review Specialty Diagnoses / Procedures Referred By Bishnu bajwa Referred To Contact Behavioral Health Diagnoses BREONNA (generalized anxiety disorder) ([facility]/HCC) Procedures CT OFFICE/OUTPATIENT NEW HIGH MDM 60 MINUTES Cris Johnson NP [address] [place] [address] Katharina Wilson NP [address] [place] [address] Referral ID Status Reason Start Date Expiration Date Visits Requested Visits Authorized [id number] Pending Review Specialty Services Required 02/13/2024 08/11/2024 1 1 [facility] Consultation (Routine) - Authorized Specialty Diagnoses / Procedures Referred By Bishnu bajwa Referred To Contact Podiatry Diagnoses Type 2 diabetes mellitus with stage 3a chronic kidney disease, without long-term current use of insulin (HCC) (CMS/HCC) Procedures CT OFFICE/OUTPATIENT NEW HIGH [facility] 60 MINUTES Cris Johnson NP [address] [place] [address] Grant Lozano DPM [address] [place] [address] Referral ID Status Reason Start Date Expiration Date Visits Requested Visits Authorized [id number] Authorized Specialty Services Required 01/05/2024 07/03/2024 1 1 [facility] Summary Purpose Family History Unknown Family Member Name Dates Details Family [...] family history: Sister(V49.89, Z78.9) Status:Active Advance Directives Documents on File Type Date Recorded Patient Last Waxer Expl anation Advance Directives and Living Will Power of Public Policy Mediator Latest Code Status on File Code Status Date Activated Date Inactivated Comments Full Code 04/25/2018 6:40 AM 04/25/2018 1:22 PM Documents on File Type Date Recorded Patient Last Waxer Expl anation Advance Directives and Living Will Power of Public Policy Mediator Latest Code Status on File Code Status Date Activated Date Inactivated Comments Full Code 04/25/2018 6:40 AM 04/25/2018 1:22 PM Documents on File Type Date Recorded Patient Last Waxer Expl anation ACP-Advance Directive ACP-Power of Public Policy Mediator Documents on File Type Date Recorded Patient Last Waxer Expl anation ACP-Advance Directive ACP-Power of Public Policy Mediator Advance Directive Response Recorded Date/ Time Advance Directives No August 23, 023 12:59pm Assessments Diagnosis Renal colic Diagnosis Renal colic Reason for Referral Status Reason Specialty Diagnoses / Procedures Referred By Contact Referred To Contact Pending Review Radiology Diagnoses Renal colic Procedures CT ABDOMEN PELVIS WO CONTRAST Additional Contrast? None William Ford, BALANCE WHEEL HAND FILER - PRINTER SLOTTER OPERATOR [address] [facility] [place] [address] [facility] Ct Scan [address] [place] [address] Status Reason Specialty Diagnoses / Procedures Referre d By Contact Referred To Contact Closed Radiology Diagnoses Stage 3a chronic kidney disease (HCC) Procedures US RENAL COMPLETE Pratik Miranda MD [address] [place] [address] Chief Complaint and Reason for Visit Chief Complaint ASCHCD Hypertension Chief Complaint Angina, Coronary Art jamel Chief Complaint * Annual f/u: 'I am getting chest discomfort' * ROXANE BONNER is being seen for an annual follow-up of coronary artery disease, dyslipidemia and hypertension. * Patient presents to the office ambulatory with steady gait. Last evaluated in clinic Dr. Munoz August 2021. Patient has followed routinely with Dr. Munoz since 2011 due to coronary artery disease [...] DATE CREATED AUTHOR 04/17/[address] [facility] DATE CREATED AUTHOR AUTHOR'S ORGANIZ ATION 04/17/2018 [facility] DATE CREATED AUTHOR AUTHOR'S ORGANIZ ATION 07/29/2019 [facility] DATE CREATED AUTHOR AUTHOR'S ORGANIZ ATION 10/25/2020 [facility] DATE CREATED AUTHOR AUTHOR'S ORGANIZ ATION 11/01/2020 [facility] DATE CREATED AUTHOR AUTHOR'S ORGANIZ ATION 04/30/[address] [facility] DATE CREATED AUTHOR AUTHOR'S ORGANIZ ATION 08/20/2022 [facility] DATE CREATED AUTHOR AUTHOR'S ORGANIZ ATION 09/02/2022 [facility] DATE CREATED AUTHOR AUTHOR'S ORGANIZ ATION 09/20/2022 [facility] DATE CREATED AUTHOR AUTHOR'S ORGANIZ ATION 12/15/2022 [facility] DATE CREATED AUTHOR AUTHOR'S ORGANIZ ATION 06/14/2024 [facility] DATE CREATED AUTHOR AUTHOR'S ORGANIZ ATION 10/05/2024 [facility] Specialists EPIC Reason for Visit (unrecogniz ed section and content) Status Reason Specialty Diagnoses / Procedures Referred By Contact Referred To Contact Pending Review Radiology Diagnoses Renal colic Procedures CT ABDOMEN PELVIS WO CONTRAST Additional Contrast? None William Ford, BALANCE WHEEL HAND FILER - PRINTER SLOTTER OPERATOR [address] [facility] [place] [address] [facility] Ct Scan [address] [address] Status Reason Specialty Diagnoses / Procedures Referre d By Contact Referred To Contact Closed Radiology Diagnoses Stage 3a chronic kidney disease (HCC) Procedures US RENAL COMPLETE Pratik Miranda MD [address] [place] [address] Reason Comments Follow-up 6 months Reason Comments Follow-up 6 month follow up. B lood pressure Reason Onset Date Comments Med Refill 02/14/2024 Reason Onset Date Comments Med Refill 03/05/2024 Reason Comments Follow-up Reason Comments Leg Pain Reason Comments DM Foot Care Dm nail care Specialty Diagnoses / Procedures Referred By Contac t Referred To Contact Podiatry Diagnoses Type 2 diabetes mellitus with stage 3a chronic kidney disease, without long-term current use of insulin (HCC) ([facility]/HCC) Procedures CT OFFICE/OUTPATIENT NEW HIGH MDM 60 MINUTES Cris Johnson, ACE [address] [place] [address] Grant Lozano DPM [address] [facility] [address] [place] [address] Referral ID Status Reason Start Date Expiration Date V isits Requested Visits Authorized [id number] Closed Specialty Services Required 01/05/2024 07/03/2024 1 1 Reason Comments Med Refill Reason Comments Plantar Warts Reason Comments Follow-up Bl lesion check Reason Comments Follow-up Bl lesionc heck Care Teams (unrecognized sec tion and content) Team Status: Inactive Member Role Status Dates Roosevelt Crawley , Primary Care Provider Active Bridget Munoz DO Attending Provider Active Tree Marcelino DO Referring Provider Active Team Status: Active Member Role Status Dates Roosevelt Crawley , Primary Care Provider Active Team Status: Inactive Member Role Status Dates Roosevelt Crawley , Primary Care Provider Active Tree Marcelino DO Attending Provider Active Supervisor Hot Dip Tinning Relationship Specialty Start Date End Date Shaikh Rae MD [address] [place], [place] [id number] PCP - General Internal Medicine 06/07/23 Jacinto Marcelino DO [address] [facility] [address], [address] [place] [address] Consulting Physician Cardiology 06/07/23 Supervisor Hot Dip Tinning Relationship Specialty Start Date End Date Ajay Gates MD [address] [place] [address] PCP - General Family Medicine 12/12/23 Cris Johnson NP [address] [place] [address] Nurse Practitioner Family Medicine 12/12/23 Supervisor Hot Dip Tinning Relationship Specialty Start Date End Date Ajay Gates MD [address] [place] [address] PCP - General Family Medicine 12/12/23 Cris Johnson NP [address] [place] [address] Nurse Practitioner Family Medicine 12/12/23 Supervisor Hot Dip Tinning Relationship Specialty Start Date End Date Ajay Gates MD [address] [place] [address] PCP - General Family Medicine 12/12/23 Cris Johnson NP [address] [place] [address] Nurse Practitioner Family Medicine 12/12/23 Supervisor Hot Dip Tinning Relationship Specialty Start Date End Date Ajay Gates MD [address] [place] [address] PCP - General Family Medicine 12/12/23 Cris Jhonson NP [address] [place] [address] Nurse Practitioner Family Medicine 12/12/23 Supervisor Hot Dip Tinning Relationship Specialty Start Date End Date Ajay Gates MD [address] [place] [address] PCP - General Family Medicine 12/12/23 Cris Johnson NP [address] [place] [address] Nurse Practitioner Family Medicine 12/12/23 Supervisor Hot Dip Tinning Relationship Specialty Start Date End Date Ajay Gates MD [address] [place] [address] PCP - General Family Medicine 12/12/23 Cris Johnson NP [address] [place] [address] Nurse Practitioner Family Medicine 12/12/23 Supervisor Hot Dip Tinning Relationship Specialty Start Date End Date Ajay Gates MD [address] [place] [address] PCP - General Family Medicine 12/12/23 Cris Johnson NP [address] [place] [address] Nurse Practitioner Family Medicine 12/12/23 Supervisor Hot Dip Tinning Relationship Specialty Start Date End Date Ajay Gates MD [address] [place] [address] PCP - General Family Medicine 12/12/23 Cris Johnson NP [address] [place] [address] Nurse Practitioner Family Medicine 12/12/23 Supervisor Hot Dip Tinning Relationship Specialty Start Date End Date Ajay Gates MD [address] [place] [address] PCP - General Family Medicine 12/12/23 Cris Johnson NP [address] [place] [address] Nurse Practitioner Family Medicine 12/12/23 Supervisor Hot Dip Tinning Relationship Specialty Start Date End Date Ajay Gates MD [address] [place] [address] PCP - General Family Medicine 12/12/23 Cris Johsnon NP [address] [place] [address] Nurse Practitioner Family Medicine 12/12/23 Supervisor Hot Dip Tinning Relationship Specialty Start Date End Date Ajay Gates MD [address] [place] [address] PCP - General Family Medicine 12/12/23 Cris Johnson NP [address] [place] [address] Nurse Practitioner Family Medicine 12/12/23 Supervisor Hot Dip Tinning Relationship Specialty Start Date End Date Ajay Gates MD [address] [place] [address] PCP - General Family Medicine 12/12/23 Cris Johnson NP [address] [place] [address] Nurse Practitioner Family Medicine 12/12/23 Supervisor Hot Dip Tinning Relationship Specialty Start Date End Date Ajay Gates MD [address] [place] [address] PCP - General Family Medicine 12/12/23 Cris Johnson NP [address] [place] [address] Nurse Practitioner Family Medicine 12/12/23 Supervisor Hot Dip Tinning Relationship Specialty Start Date End Date Ajay Gates MD [address] [place] [address] PCP - General Family Medicine 12/12/23 Cris Johnson NP [address] [place] [address] Nurse Practitioner Family Medicine 12/12/23 Supervisor Hot Dip Tinning Relationship Specialty Start Date End Date Ajay Gates MD [address] [place] [address] PCP - General Family Medicine 12/12/23 Cris Johnson NP [address] [place] [address] Nurse Practitioner Family Medicine 12/12/23 Supervisor Hot Dip Tinning Relationship Specialty Start Date End Date Ajay Gates MD [address] [place] [address] PCP - General Family Medicine 12/12/23 Cris Johnson NP [address] [place] [address] Nurse Practitioner Family Medicine 12/12/23 Supervisor Hot Dip Tinning Relationship Specialty Start Date End Date Ajay Gates MD [address] [place] [address] PCP - General Family Medicine 12/12/23 Cris Johnson NP [address] [place] [address] Nurse Practitioner Family Medicine 12/12/23 Supervisor Hot Dip Tinning Relationship Specialty Start Date End Date Ajay Gates MD [address] [place] [address] PCP - General Family Medicine 12/12/23 Cris Johnson NP [address] [place] [address] Nurse Practitioner Family Medicine 12/12/23 Supervisor Hot Dip Tinning Relationship Specialty Start Date End Date Ajay Gates MD [address] [place] [address] PCP - General Family Medicine 12/12/23 Cris Johnson NP [address] [place] [address] Nurse Practitioner Family Medicine 12/12/23 Supervisor Hot Dip Tinning Relationship Specialty Start Date End Date Ajay Gates MD [address] [place] [address] PCP - General Family Medicine 12/12/23 Cris Johnson NP [address] [place] [address] Nurse Practitioner Family Medicine 12/12/23 Supervisor Hot Dip Tinning Relationship Specialty Start Date End Date Ajay Gates MD [address] [place] [address] PCP - General Family Medicine 12/12/23 Cris Johnson NP [address] [place] [address] Nurse Practitioner Family Medicine 12/12/23 Supervisor Hot Dip Tinning Relationship Specialty Start Date End Date Ajay Gates MD [address] [place] [address] PCP - General Family Medicine 12/12/23 Cris Johnson NP [address] [place] [address] Nurse Practitioner Family Medicine 12/12/23 Supervisor Hot Dip Tinning Relationship Specialty Start Date End Date Ajay Gates MD [address] [place] [address] PCP - General Family Medicine 12/12/23 Cris Johnson NP [address] [place] [address] Nurse Practitioner Family Medicine 12/12/23 Goals (unrecognized section and content) Goals may [...] BE BASED ON THE PRIMARY CLINICAL RECORDS. [employer] provides no warranty or guarantee of the accuracy or completeness of information in this document.
[2024-10-31 08:23] LABS: Basophils Absolute Auto 0.1 10^3/uL (0.0-0.1); Basophils Percent Auto 0.9 % (0.2-2.0); Eosinophils Absolute Auto 0.6 10^3/uL (0.0-0.7); Eosinophils Percent Auto 5.6 % (0.9-7.0); Hematocrit 41.6 % (42.0-54.0); Hemoglobin 13.9 g/dL (14.0-18.0); Immature Granulocytes Abs Auto 0.09 10^3/uL (0.00-0.03); Immature Granulocytes Pct Auto 0.8 % (0.0-0.5); Lymphocytes Absolute Auto 3.6 10^3/uL (1.2-3.8); Lymphocytes Percent Auto 33.9 % (20.5-60.0); Mean Corpuscular HGB Conc 33.4 g/dL (29.9-35.2); Mean Corpuscular Hemoglobin 30.6 pg (25.9-34.0); Mean Corpuscular Volume 91.6 fL (80.0-94.0); Mean Platelet Volume 8.9 fL (9.5-13.5); Monocytes Percent Auto 9.2 % (1.7-12.0); Neutrophils Absolute Auto 5.3 10^3/uL (1.4-6.5); Neutrophils Percent Auto 49.6 % (43.0-75.0); Platelet Count 239 10^3/uL (150-450); Red Blood Count 4.54 10^6/uL (4.70-6.10); Red Cell Distribution Width 14.2 % (11.0-15.0); White Blood Count 10.7 10^3/uL (4.0-11.0)
[2024-10-31 08:24] LABS: Bilirubin Urine NEGATIVE (NEGATIVE); Blood Urine NEGATIVE (NEGATIVE); Clarity Urine CLEAR (CLEAR); Color Urine YELLOW (YELLOW); Glucose Urine UA >=1000 mg/dL (NEGATIVE); Ketones Urine TRACE mg/dL (NEGATIVE); Leukocyte Esterase Urine NEGATIVE (NEGATIVE); Nitrite Urine NEGATIVE (NEGATIVE); Protein Urine NEGATIVE (NEG/TRACE); Specific Gravity Urine 1.015 (1.005-1.025); Urobilinogen Urine 0.2 EU/dL (0.2-1.0)
[2024-10-31 08:30] LABS: Urine Microscopic Indicated NO
[2024-10-31 09:14] LABS: Creatinine Urine Random 124.26 mg/dL (20.00-300.00); Microalbumin Urine Random <1.3 mg/dL (<=30.0)
[2024-10-31 09:25] LABS: Prostate Specific Antigen Scrn 0.27 ng/mL (<=4.00)
[2024-10-31 09:41] LABS: Chloride 105 mmol/L (98-107); Potassium 4.6 mmol/L (3.5-5.1); Sodium 142 mmol/L (136-145)
[2024-10-31 09:42] LABS: Alanine Aminotransferase 120 U/L (16-63); Anion Gap 14.8; Aspartate Amino Transferase 88 U/L (15-37); BUN Creatinine Ratio 15.9; Bilirubin Total 0.3 mg/dL (0.2-1.0); Calcium 8.9 mg/dL (8.5-10.1); Carbon Dioxide 26.8 mmol/L (21.0-32.0); Estimated GFR (African America >60 (>=60 mL/min/1.73m^2); Estimated GFR (Non-African Ame 55 (>=60 mL/min/1.73m^2); Glucose 154 mg/dL (74-106)
[2024-10-31 09:43] LABS: Albumin Globulin Ratio 1.1; Albumin Level 3.7 g/dL (3.4-5.0); Alkaline Phosphatase 86 U/L (46-116); Cholesterol 117 mg/dL (<=200); Globulin 3.4 g/dL; HDL Cholesterol 41 mg/dL (40-60); Thyroid Stimulating Hormone 0.936 uIU/mL (0.358-3.740); Total Protein 7.1 g/dL (6.4-8.2); Triglycerides 168 mg/dL (<=150); VLDL CHOLESTEROL 33.6 mg/dL
== END 2024-10-31 08:02 | disposition home or self-care (01) ==
LOC: LAB 08:04
PROVIDERS: PCP Nurse Practitioner; Visit Provider Nurse Practitioner
DX: K21.9 Gastro-esophageal reflux disease without esophagitis (principal); E11.42 Type 2 diabetes mellitus with diabetic polyneuropathy; I25.10 Atherosclerotic heart disease of native coronary artery without angina pectoris; I50.32 Chronic diastolic (congestive) heart failure; N18.30 Chronic kidney disease, stage 3 unspecified; E66.9 Obesity, unspecified; E78.2 Mixed hyperlipidemia; Z12.5 Encounter for screening for malignant neoplasm of prostate; I11.0 Hypertensive heart disease with heart failure
CPT/HCPCS: 36415; 80053; 80061; 81003; 82043; 82570; 84443; 85025; G0103

== ENCOUNTER 2024-11-13 07:06 | Outpatient (OUT) | payer MEDICARE, MEDICAID, SELFPAY ==
--- OUTSIDE RECORDS SUMMARY | 2024-11-05 09:55 | XMS_ITS | Encounter Summary ---
Author Organization [facility] Address [address] [place] [address] Care Team Providers Care Metal Slitter Name Role Phone Ajay Gates MD Primary Care Provider [phone] Erica Johnson NP Unavailable [phone] Reason for Visit * Consultation (Routine) - Closed Specialty Diagnoses / Procedures Referred By Bishnu bajwa Referred To Contact Dermatology Diagnoses Open wounds involving multiple regions of upper extremity Procedures OK OFFICE/OUTPATIENT [facility] 60 MINUTES Malgorzata Holliday NP [address] [place] [address] Phone: tel: fax: Wanda Chi, AUDIT MGR-DORMITORY SUPERVISOR [address] [facility] [address] [place] [address] Phone: tel: fax: Referral ID Status Reason Start Date Expiration Date V isits Requested Visits Authorized [id number] Closed Specialty Services Required 10/17/2024 04/15/2025 1 1 Encounter Details Date Type Department Care Team (Late st Contact Info) Description 11/05/2024 9:55 AM EDT Office Visit [facility] [address] [place] [address] Wanda Chi APRN-DORMITORY SUPERVISOR [address] [place] [address] Psoriasis vulgaris (Primary Dx); Neoplasm of unspecified behavior of bone, soft tissue, and skin Social History Tobacco Use Types Packs/Day Years Used Date Smoking Tobacco: Every Day Cigarettes Passive Smoke Exposure: Current Comments:Moderate cigarette smoker (10-19/day) Alcohol Use Standard Drinks/Week Comments Yes 0 (1 standard drink = 0.6 oz pure alcohol) caffeine: 3-4 cups per day 5 hour energy drink ;3 -4 times a week AUDIT-C Answer Date Recorded Q1: How often do you have a drink containing alc ohol? Monthly or less 04/08/2023 Q2: How many drinks containi ng alcohol do you have on a typical day when you are drinking? 1 or 2 04/08/2023 Q3: How often do you have si x or more drinks on one occasion? Never 04/08/2023 PHQ-2 Answer Date Recorded Patient Health Questionnaire-2 Score 1 01/05/2024 Sex and Gender Information Value Date Recorded Sex Assigned at Male 10/01/2023 12:03 PM EDT Legal Sex Male 6:56 PM EDT Gender Identity Male 10/01/2023 12:03 PM EDT Sexual Orientation Not on file documented as of this encounter Progress Notes * Wanda Chi, AUDIT MGR-DORMITORY SUPERVISOR - 11/05/2024 9:55 AM EDT Images from the original note were not included. Lesions: Location: Right arm Duration: About three months Quality: Sometimes painful when he presses on it Modifying factors: Non-healing Associated symptoms: Big red bump Treatments: OTC wart remover, and lotion New patient Rash Location: Arms, and legs Duration: Many years Severity: Moderate Quality: Itchy from time to time depending on flare Modifying Factors: Recurrent. Denies joint pain Associated symptoms: Red, scaly patches and plaques Treatments tried: Oatmeal soap, and lotions. No prescription medications have been used. Patient did mention if treated, he does not wish to proceed with an injection Current treatments: ^ All pertinent medical history, medications, and allergies were reviewed. General Exam: alert, oriented to person, place, and time, normal affect, well appearing A focused exam completed based on patient reported problems, see below: Skin Exam 1. PSORIASIS VULGARIS Arms and Legs Well-marginated erythematous papules/plaques with silvery scale. Flaring today BSA 10%. The patient was informed that psoriasis is a chronic condition that can be controlled but not cured. Start Fluocinonide 0.05% cream bid/prn. Instructed to contact office if psoriasis worsens or failsto improve despite treatment. Follow up in two months fluocinonide (Lidex) 0.05 % cream - Arms and Legs Apply thin layer (2 g) to the arms and legs up to twice a day when flared, do not use one the face,groin, or underarms, 30 day supply 2. NEOPLASM OF UNSPECIFIED BEHAVIOR OF BONE, SOFT TISSUE, AND SKIN Right Forearm Erythematous nodule with central depression Lesion biopsy Type of biopsy: tangential Informed consent: discussed and consent obtained Informed consent comment: The risks and benefits of the biopsy were discussed. Risks include but are not limited to bleeding, infection, scarring, pain, and nerve damage. An opportunity to ask questions prior to the procedure was permitted and all questions were answered. Patient was prepped and draped in usual sterile fashion: area cleansed with alcohol. Anesthesia: the lesion was anesthetized in a standard fashion Anesthetic: 1% lidocaine w/ epinephrine 1-100,000 buffered w/ 8.4% NaHCO3 Instrument used: DermaBlade Hemostasis achieved with: electrodesiccation Outcome: patient tolerated procedure well Outcome comment: The specimen was placed in a prelabeled formalin container to be sent for pathology Post-procedure details: sterile dressing applied and wound care instructions given Post-procedure details comment: Emphasized need to contact clinic for any signs of infection, uncontrollable bleeding, or complications. Dressing type: bandage Additional details: Photo taken Amount of lidocaine used: 3.0 cc Specimen A - Dermatopathology exam Differential Diagnosis: SCC Check Margins: No Size of lesion: 2.5 x 2.5 cm Next Visit: pending biopsy results, 2 months follow up/skin check documented in this encounter Plan of Treatment Upcoming Encounters Date Type Department Care Team (Late st Contact Info) Description 12/31/2024 10:10 AM EDT Office Visit [facility] [address] [place] [address] Wanda Chi APRN-CNP [address] [place] [address] 01/08/2025 1:00 PM EDT Office Visit [facility] [address] [place] [address] Malgorzata Holliday NP [address] [place] [address] 01/16/2025 8:45 AM EDT Office Visit [facility] [address] [place] [address] Martha Ervin MD [address] [place] [address] documented as of this encounter Procedures Procedure Name Priority Date/Time Associated Diagnosis Comments SKIN / NAIL BIOPSY Routine 11/05/2024 9: 50 AM EDT Neoplasm of unspecified behavior of bone, soft tissue, and skin DERMATOPATHOLOGY EXAM Routine 11/05/2024 12:00 AM EDT Neoplasm of unspecified behavior of bone, soft tissue, and skin documented in this encounter Results * Lesion biopsy (11/05/2024 9:50 AM EDT) Narrative Tia Aguilera LPN - 11/05/2024 9:50 AM EDT Type of biopsy: tangential Informed consent: discussed and consent obtained Informed consent comment: The risks and benefits of the biopsy were discussed. Risks include but are not limited to bleeding, infection, scarring, pain, and nerve damage. An opportunity to ask questions prior to the procedure was permitted and all questions were answered. Patient was prepped and draped in usual sterile fashion: area cleansed with alcohol. Anesthesia: the lesion was anesthetized in a standard fashion Anesthetic: 1% lidocaine w/ epinephrine 1-100,000 buffered w/ 8.4% NaHCO3 Instrument used: DermaBlade Hemostasis achieved with: electrodesiccation Outcome: patient tolerated procedure well Outcome comment: The specimen was placed in a prelabeled formalin container to be sent for pathology Post-procedure details: sterile dressing applied and wound care instructions given Post-procedure details comment: Emphasized need to contact clinic for any signs of infection, uncontrollable bleeding, or complications. Dressing type: bandage Additional details: Photo taken Amount of lidocaine used: 3.0 cc Wanda [facility] PROCEDURE ORDERAB LES Final Result * Dermatopathology exam (11/05/2024 12:00 AM EDT) SPECIMEN TYPE ------ SPECIMEN: RIGHT FOREARM ------ [facility] ICD10 Code C44.621 [facility] PROTOCOL F - FLAT [facility] Final Diagnosis SQUAMOUS CELL CARCINOMA, WELL-DIFFERENT IATED, INVASIVE. [facility] Gross Text 2 blocks, (4 in 1) (3 in 2) (jg/kb) (11/07/24) [facility] Microscopic Description Microscopic examination performed. [facility] CPT 75549*1 [facility] Skin Topography unknown / Unknown 11/05/2024 9:50 AM EDT Comment:Differential Diagnos is: SCC Check Margins: No Size of lesion: 2.5 x 2.5 cm Wanda Morley Alon [facility] PATH[facility]Y ORDERABL ES Final Result [facility] documented in this encounter Visit Diagnoses Diagnosis Psoriasis vulgaris- Primary Other psoriasis Neoplasm of unspecified behavior of bone, soft tissue, and skin documented in this encounter Additional Health Concerns Assessment Noted Time PHQ-9 Depression Total Score: 13 05/30/ 024 9:21 AM EST documented as of this encounter Care Teams Metal Slitter Relationship Specialty Start Date End Date Ajay Gates MD [address] [place] [address] PCP - General Family Medicine 12/12/23 Erica Johnson NP [address] [place] [address] Nurse Practitioner Family Medicine 12/12/23 documented as of this encounter
--- OUTSIDE RECORDS SUMMARY | 2024-11-05 13:33 | XMS_ITS ---
Author Name Auto Generated Organization [facility] Care Team Providers Care Quality Review Specialist Name Role Phone SANTOS HAYWARD Attending Unavailable SANTOS HAYWARD Referring Unavailable SHAIKH BLACK Primary Care Unavailable CRIS AREVALO Attending UnavailBIB Saldana Attending Unavailable CRIS AREVALO Attending UnavailBIB Saldana Attending Unavailable CRIS AREVALO Referring UnavailBIB Saldana Attending Unavailable BIB LOZANO Attending Unavailable BIB LOZANO Attending Unavailable SANDRA FELIPE Attending Unavailable KESHAV ARMAS Attending Unavailable SANDRA FELIPE Referring Unavailable SANDRA FELIPE Attending Unavailable CRIS AREVALO Attending Unavailabl e CRIS AREVALO Attending Unavailabl e PROBLEMS DATE TYPE CONDITION / CODE ATTENDING STATUS YOLANDE E 06/12/2024 Admitting Diagnosis Chronic obstructive pulmonary disease, unspecified / J44.9(ICD-10) [facility] 06/12/2024 Admitting Diagnosis Coronary angioplasty status / Z98.61(ICD-10) [facility] 06/07/2023 Admitting Diagnosis Obesity, unspecified / E66.9(ICD-10) [facility] 05/17/2023 Admitting Diagnosis Atherosclerotic heart disease of [place] coronary artery without angina pectoris / I25.10(ICD-10) [facility] 05/17/2023 Admitting Diagnosis Type 2 diabetes mellitus without complications (Multi) / E11.9(ICD-10) [facility] 05/17/2023 Admitting Diagnosis FPC (current) use of insulin (Multi) / Z79.4(ICD-10) [facility] 05/17/2023 Admitting Diagnosis Nicotine dependence, unspecified, uncomplicated / F17.200(ICD-10) [facility] 05/17/2023 Admitting Diagnosis Mixed hyperlipidemia / E78.2(ICD-10) [facility] 05/17/2023 Admitting Diagnosis Essential (primary) hypertension / I10(ICD-10) [facility] 06/12/2024 Admitting Diagnosis Angina pectoris, unspecified / I20.9(ICD-10) [facility] PROCEDURES No Procedure Records Found RESULTS ALLERGIES DATE TYPE / CODE NAME / CODE REACTION SEVERITY SOURCE 05/17/2023 Drug Class/492648 003(SNOMED CT) PENICILLINS Itching~Rash~Swe lling [facility] 05/17/2023 Drug Class/971282 003(SNOMED CT) SULFA (SULFONAMIDE ANTIBIOTICS) Itching~Rash~Swe lling [facility] ENCOUNTERS ADMIT/DISCHARGE ACCOUNT NUMBER ADMITTING ENCOUNTER CLASS LOCATION SOURCE 11/05/2024/ [id number] Ambulatory Building:[facility] 11/05/2024/ 5 [id number] Ambulatory Building:[facility] 10/02/2024/ 5 [id number] Ambulatory Building:[facility] 09/25/2024/ 5 [id number] Ambulatory Building:[facility] 09/04/2024/ 5 [id number] Ambulatory Building:[facility] 08/21/2024/ 5 [id number] Ambulatory Building:[facility] 08/06/2024/ 5 [id number] Ambulatory Building:[facility] 06/25/2024/ 5 [id number] Ambulatory Building:[facility] 06/12/2024/ 5 [id number] Ambulatory Building:[address] Ambulatory 03/26/2024/ 4 [id number] Ambulatory Building:[facility] 02/13/2024/ 4 [id number] Ambulatory Building:[facility] 01/26/2024/ 4 [id number] Ambulatory Building:[facility] 01/05/2024/ 4 [id number] Ambulatory Building:[facility] PAYERS ENCOUNTER GUARANTOR PAYER SUBSCRIBER SOURCE 11/05/2024 ROXANE LITTLEOB: [place], [place] [address]Ryz: () () Primary Insurance:[employer] MEDICAIDPolicy Number: [id number] Date:2023-05-09 ROXANE LAMBERTRDOB: [id number] [place] [address] [facility] 11/05/2024 ROXANE LAMBERTRDOB: [place], [place] [address]Kwn: (HP) (WP) Primary Insurance:[employer] MEDICAIDPolicy Number: [id number] Date:2023-05-09 ROXANE DE LA ORARDOB: [id number] [place] [address] [facility] 10/02/2024 ROXANE FARRARDOB: [place] [address]Azv: (HP) (WP) [facility] MED[facility]Policy Number: [id number] Date:2023-05-09 ROXANE DE LA ORARDOB: [id number] [place] [address] [facility] 09/25/2024 ROXANE JAIRONRARDOB: [place] [address]Qnt: (HP) (WP) Primary Insurance:[facility] MEDICA[facility]Policy Number: [id number] Date:2023-05-09 ROXANE DE LA ORARDOB: [id number] [place] [address] [facility] 09/04/2024 ROXANE JAIRONRARDOB: [place] [address]Ddi: (HP) (WP) Primary Insurance:[employer] MEDICAIDPolicy Number: [id number] Date:2023-05-09 ROXANE DE LA ORARDOB: [id number] [place] [address] [facility] 08/21/2024 ROXANE JAIRONRARDOB: [place] [address]Vfj: (HP) (WP) Primary Insurance:[employer] MEDICAIDPolicy Number: [id number] Date:2023-05-09 ROXANE JAIRONRARDOB: [id number] [place] [address] [facility] 08/06/2024 ROXANE DE LA ORARDOB: [place] [address]Oql: (HP) (WP) Primary Insurance:[employer] MEDICAIDPolicy Number: [id number] Date:2023-05-09 ROXANE ED LA ORARDOB: [id number] [place] [address] [facility] 06/25/2024 ROXANE DE LA ORARDOB: [place], [place] [address]Spy: (HP) (WP) Primary Insurance:[facility] MEDICA[facility]Policy Number: [id number] Date:2023-05-09 ROXANE DE LA ORARDOB: [id number] [place] [address] [facility] 06/12/2024 ROXANE DE LA ORARDOB: [place], [place] [address]Clx: (HP) Primary Insurance:CARESOURCEPo licy Number: [id number] Date:2018-04-08 ROXANE DE LA ORARDOB: [id number] [place] [address]Vyo: (HP) [facility] 03/26/2024 ROXANE DE LA ORARDOB: [place], [place] [address]Ygq: (HP) (WP) Primary Insurance:[employer] MEDICAIDPolicy Number: [id number] Date:2023-05-09 ROXANE DE LA ORARDOB: [id number] [place] [address] [facility] 02/13/2024 ROXANE DE LA ORARDOB: [place], [place] [address]Ukc: (HP) (WP) Primary Insurance:[employer] MEDICAIDPolicy Number: [id number] Date:2023-05-09 ROXANE DE LA ORARDOB: [id number] [place] [address] [facility] 01/26/2024 ROXANE JAIRONRARDOB: [place], [place] [address]Oza: (HP) (WP) Primary Insurance:[employer] MEDICAIDPolicy Number: [id number] Date:2023-05-09 ROXANE DE LA ORARDOB: [id number] [place] [address] [facility] 01/05/2024 ROXANE JAIRONRARDOB: [place], [place] [address]Emq: (HP) (WP) Primary Insurance:[employer] MEDICAIDPolicy Number: [id number] Date:2023-05-09 ROXANE DE LA ORARDOB: [id number] [place] [address] [facility]
--- OUTSIDE RECORDS SUMMARY | 2024-11-05 13:40 | XMS_ITS | Encounter Summary ---
Author Organization [facility] Address [address] [place] [address] Care Team Providers Care Electronics Manufacturer Name Role Phone Ajay Gates MD Primary Care Provider [phone] Erica Johnson NP Unavailable [phone] Reason for Referral * Consultation (Routine) - Authorized Specialty Diagnoses / Procedures Referred By Bishnu bajwa Referred To Contact Gastroenterology Diagnoses Esophageal dysphagia Procedures AL OFFICE/OUTPATIENT [facility] HIGH MDM 60 MINUTES Malgorzata Holliday NP [address] [place] [address] Phone: tel: fax: Judith Pinzon DO [facility] Referrals ONLY fax: Referral ID Status Reason Start Date Expiration Date Visits Requested Visits Authorized [id number] Authorized Specialty Services Required 11/05/2024 05/04/2025 1 1 Reason for Visit * Reason Comments Diabetes Encounter Details Date Type Department Care Team (Late st Contact Info) Description 11/05/2024 1:40 PM EDT Office Visit [facility] [address] [place] [place] [address] Malgorzata Holliday NP [address] [place] [address] Type 2 diabetes mellitus with stage 3a chronic kidney disease, without long-term current use of insulin (HCC) (Primary Dx); Chronic obstructive pulmonary disease, unspecified COPD type (HCC); Primary hypertension ; Elevated liver function tests; Obesity (BMI 30-39.9); Tobacco dependence; Esophageal dysphagia Social History Tobacco Use Types Packs/Day Years [...] on file documented as of this encounter Last Filed Vital Signs Vital Sign Reading Time Taken Comments Blood Pressure 98/60 11/05/2024 1:40 PM EDT Pulse 86 11/05/2024 1:40 PM EDT Temperature 36.7 C (98.1 F) 11/05/2024 1:40 PM EDT Respiratory Rate 20 11/05/2024 1:40 PM EDT Oxygen Saturation 93% 11/05/2024 1:40 PM EDT Inhaled Oxygen Concentration - - Weight 88.8 kg (195 lb 12.8 oz) 11/05/2024 1:40 PM EDT Height - - Body Mass Index 31.6 09/25/2024 10:55 AM EDT documented in this encounter Patient Instructions * Patient Instructions* Malgorzata Holliday NP - 11/05/2024 1:40 PM EDT Ultra sound liver, get labs at same time Will refer to GI for trouble swallowing documented in this encounter Progress Notes * Malgorzata Holliday NP - 11/05/2024 2:21 PM EDTAssociated Problem(s): Esophageal dysphagia Continue PPI Refer to GI * EDNA RICHMOND - 11/05/2024 1:40 PM EDT Right forearm- had biopsy for possible skin cancer done today Pt states that he does feel nauseous with the trulicity (states he understands it is a common side affect) Pt feels tho it is not helping and feels that his numbers has not improved. Pt states numbers are about the same. 30 day avg 131 02 range 92-93% wheezing * Malgorzata Holliday NP - 11/05/2024 1:40 PM EDT Images from the original note were not included. Kev Dickson is a 63 y.o. male presents with chief complaint of Diabetes HPI: Deexcom: 90 day avg 140, TIR 77%, high 15%, very high 4%3% low, 1 % very low 30 day avg 131, TIR 84%, high 10%, very high 2%, 3% low, 1% very low, GMI 6.4% 14 day avg 143, 80% TIR, 13% high, 5% very high, low 1%, very low 1%, GMI 6.7% 7day avg 130, 85% TIR, 7% high, 4% very high, 2% low and 2% very low 3 day avg 105, TIR 93%, 4% low, and 3% very low Still fatigued, less low blood sugar episodes Had labs completed Mild RUQ discomfort, no NV, does have hx GERD, and at times diff swallowing as well No hx IV drug use or tatoos SUBJECTIVE: MEDICATIONS: Current Outpatient Medications Medication Instructions aspirin (ASPIRIN) 81 mg, Daily Blood Pressure Monitoring (Blood Pressure Cuff) misc 1 each, Does not apply, 2 times daily Continuous Glucose Insect Control Aide (Dexcom G7 Insect Control Aide) device 1 each, Does not apply, Continuous Continuous Glucose Sensor (Dexcom G7 Sensor) misc 1 each, Does not apply, Continuous empagliflozin (JARDIANCE) 25 mg, Oral, Daily escitalopram (LEXAPRO) 20 mg, Oral, Daily fluocinonide (Lidex) 0.05 % cream Apply thin layer (2 g) to the arms and legs up to twice a day when flared, do not use one the face, groin, or underarms, 30 day supply glimepiride (AMARYL) 2 mg, Oral, Daily before breakfast hydrOXYzine HCl (ATARAX) 25 mg, Oral, Every 8 hours PRN lisinopril 10 mg, Oral, Daily metFORMIN (GLUCOPHAGE) 1,000 mg, Oral, 2 times daily with meals Methylcobalamin (W29-CNLFUY PO) 1,000 mg, Daily metoprolol succinate XL (TOPROL-XL) 25 mg, Daily nitroglycerin (Nitrodur) 0.2 MG/HR patch 1 patch, Daily nitroglycerin (NITROSTAT) 0.4 mg, Every 5 min PRN omeprazole (PRILOSEC) 20 mg, Oral, Daily before breakfast, Do not crush or chew. pregabalin (LYRICA) 150 mg, Oral, 3 times daily rosuvastatin (CRESTOR) 20 mg, Oral, Daily Trulicity 0.75 mg, Subcutaneous, Every 7 days ALLERGIES: Allergies Allergen Reactions Penicillins Sulfa Antibiotics REVIEW OF SYMPTOMS: Review of Systems Constitutional: Positive for fatigue. Negative for activity change, appetite change and unexpected weight change. HENT: Negative for ear pain, nosebleeds, sneezing, trouble swallowing and voice change. Eyes: Negative for pain, discharge and visual disturbance. Respiratory: Negative for apnea, chest tightness and wheezing. Cardiovascular: Negative for leg swelling. Gastrointestinal: Positive for abdominal pain. Negative for abdominal distention, blood in stool, constipation and diarrhea. Genitourinary: Negative for decreased urine volume, difficulty urinating, dysuria and hematuria. Skin: Negative for color change. Neurological: Negative for dizziness, tremors and seizures. Psychiatric/Behavioral: Negative for agitation, decreased concentration, hallucinations, self-injury and suicidal ideas. The patient is not nervous/anxious. Hematological: Negative for adenopathy. Does not bruise/bleed easily. Endocrine: Negative for cold intolerance, heat intolerance, polydipsia and polyuria. Allergic/Immunologic: Negative for environmental allergies and food allergies. PAST MEDICAL HISTORY Past Medical History: Diagnosis Date Chronic diastolic CHF (congestive heart failure) (HCC) CKD (chronic kidney disease), symptom management only, stage 3 (moderate) ([facility]) DM II (diabetes mellitus, type II), controlled (HCC) Elevated cholesterol Fracture RT LF BREONNA (generalized anxiety disorder) Heart disease History of medical problems cyst on cheek HLD (hyperlipidemia) Hypertension Kidney stones Neuropathy of foot Smoking Type 2 diabetes mellitus with peripheral neuropathy (HCC) Type 2 diabetes mellitus with stage 3 chronic kidney disease, without long-term current use of insulin, unspecified whether stage 3a or 3b CKD ([facility]) Past Surgical History: Procedure Laterality Date CARDIAC [...] in his father. OBJECTIVE: Visit Vitals BP 98/60 (BP Location: Left arm, Patient Position: Sitting, BP Cuff Size: Adult long) Pulse 86 Temp 98.1 ??F (Temporal) Resp 20 Wt 195 lb 12.8 oz SpO2 93% BMI 31.60 kg/m?? Smoking Status Every Day BSA 2.03 m?? Physical Exam Vitals and nursing note reviewed. [...] is normal. Breath sounds: Normal breath sounds. No wheezing or rhonchi. Abdominal: General: Bowel sounds are normal. Palpations: Abdomen is soft. Tenderness: There is abdominal tenderness (RUQ). Musculoskeletal: Cervical back: Neck supple. Right lower leg: No edema. Left lower [...] file. Problem List Items Addressed This Visit Type 2 diabetes mellitus with stage 3a chronic kidney disease, without long-term current use of insulin ([facility]) Check blood sugars daily, notify if <70 or >200. Take medications (pills or insulin) as directed. Monitor for s/s of hypoglycemia (sweaty, dizziness, nausea, vomiting, or shakiness). Watch for increase in thirst, urination, or appetite. Inspect feet frequently monitoring for open wounds , andalso recommend yearly eye exam. Pt should attempt [...] tumor Advised of side effects from med Hypertension Please check blood pressure daily and record DASH diet Limit caffeine Take medication as directed Contact office if chest pain, pressure, dizziness, shortness of breath, swelling legs Recommend slow position changes Current meds: mariah, b rashawn Obesity (BMI 30-39.9) COPD (chronic obstructive pulmonary disease) ([facility]) - Primary Current meds: none Tobacco dependence The patient has been advised of the risks of continued smoking: stroke, [place], all forms of cancer, lung disease, and . Options for quitting smoking include: cold turkey, hypnosis, acupuncture, nicotine replacement meds(gum, lozenges, and patches), Buproprion, and Varenicline. At this time pt is encouraged to evaluate their goals for wanting to quit smoking, and reach out toprovider when ready to start this process Elevated liver function tests Labs completed 10/26/24, will have repeat in 2 weeks due around 11/14/24 Check US of liver Relevant Orders US LIVER Esophageal dysphagia Continue PPI Refer to GI Relevant Orders Ambulatory referral to Gastroenterology * Malgorzata Holliday NP - 11/05/2024 7:00 AM EDTAssociated Problem(s): Tobacco dependence The patient has been advised of the risks of continued smoking: stroke, [place], all forms of cancer, lung disease, and . Options for quitting smoking include: cold turkey, hypnosis, acupuncture, nicotine replacement meds(gum, lozenges, and patches), Buproprion, and Varenicline. At this time pt is encouraged to evaluate their goals for wanting to quit smoking, and reach out toprovider when ready to start this process * Malgorzata Holliday NP - 11/05/2024 7:00 AM EDTAssociated Problem(s): Type 2 diabetes mellitus with stage 3a chronic kidney disease, without long-term current use of insulin (HCC) Check blood sugars daily, notify if <70 or >200. Take medications (pills or insulin) as directed. Monitor for s/s of hypoglycemia (sweaty, dizziness, nausea, vomiting, or shakiness). Watch for increase in thirst, urination, or appetite. Inspect feet frequently monitoring for open wounds , andalso recommend yearly eye exam. Pt should attempt [...] tumor Advised of side effects from med * Malgorzata Holliday NP - 11/05/2024 7:00 AM EDTAssociated Problem(s): Elevated liver function tests Labs completed 10/26/24, will have repeat in 2 weeks due around 11/14/24 Check US of liver * Malgorzata Holliday NP - 11/05/2024 6:59 AM EDTAssociated Problem(s): Hypertension Please check blood pressure daily and record DASH diet Limit caffeine Take medication as directed Contact office if chest pain, pressure, dizziness, shortness of breath, swelling legs Recommend slow position changes Current meds: mariah, b rashawn * Malgorzata Holliday NP - 11/05/2024 6:59 AM EDTAssociated Problem(s): COPD (chronic obstructive pulmonary disease) (HCC) Current meds: none documented in this encounter Plan of Treatment Upcoming Encounters Date Type Department Care Team (Late st Contact Info) Description 12/31/2024 10:10 AM EDT Office Visit [facility] [address] [place] [address] Wanda Chi APRN-SYSTEMS ACCOUNTANT [address] [place] [address] 01/08/2025 1:00 PM EDT Office Visit [facility] [address] [place] [address] Malgorzata Holliday NP [address] [place] [address] 01/16/2025 8:45 AM EDT Office Visit [facility] [address] [place] [address] Martha Ervin MD [address] [place] [address] Scheduled Orders Name Type Priority Associated Diagnoses Orde r Schedule US LIVER Imaging Routine Elevated liver function tests Expected: 11/05/2024 (Approximate), Expires: 11/05/2025 Scheduled Referrals Name Type Priority Associated Diagnoses Order Schedule Ambulatory referral to Gastroenterology Outpatient Referral Routine Esophageal dysphagia Expected: 11/05/2024 (Approximate), Expires: 05/07/2025 documented as of this encounter Visit Diagnoses Diagnosis Type 2 diabetes mellitus with stage 3a chronic kidney disease, without long-term current use of insulin (HCC)- Primary Chronic obstructive pulmonary disease, unspecified COPD type (HCC) Primary hypertension Unspecified essential hypertension Elevated liver function tests Other abnormal blood chemistry Obesity (BMI 30-39.9) Tobacco dependence Tobacco use disorder Esophageal dysphagia Dysphagia, pharyngoesophageal phase documented in this encounter Additional Health Concerns Assessment Noted Time PHQ-9 Depression Total Score: 13 024 9:21 AM EST documented as of this encounter Care Teams Electronics Manufacturer Relationship Specialty Start Date End Date Ajay Gates MD [address] [place] [address] PCP - General Family Medicine 12/12/23 Erica Johnson NP [address] [place] [address] Nurse Practitioner Family Medicine 12/12/23 documented as of this encounter
--- OUTSIDE RECORDS SUMMARY | 2024-11-13 07:07 | XMS_ITS | Encounter Summary ---
Author Organization [facility] Address [address] [place] [address] Care Team Providers Care Director Of Search Engine Optimization Name Role Phone Shaikh LEONID Rae Primary Care Provider [phone] Shaikh LEONID Rae Primary Care Provider [phone] Ajay Gates MD Primary Care Provider [phone] Erica Johnson NP Unavailable [phone] Reason for Visit * Reason Comments Med Refill Encounter Details Date Type Department Care Team (Late st Contact Info) Description 05/16[facility]2023 [facility] [address] [place] [phone] Shaikh Rae MD [address] [place] [address] Generalized anxiety disorder Social History Tobacco Use Types Packs/Day Years Used Date Smoking Tobacco: Every Day Cigarettes Comments:Moderate cigarette smoker (10-19/day) Alcohol Use Standard [...] more drinks on one occasion? Never 04/08/2023 Sex and Gender Information Value Date Recorded Sex Assigned at Male 10/01/2023 12:03 PM EDT Legal Sex Male 6:56 PM EDT Gender Identity Male 10/01/2023 12:03 PM EDT Sexual Orientation Not on file documented as of this encounter Miscellaneous Notes * Telephone Encounter - Shaikh Butch MD - 05/16/2023 12:44 PM EST Approving, but needs appt for additional refills. documented in this encounter Plan of Treatment Upcoming Encounters Date Type Department Care Team (Late st Contact Info) Description 12/31/2024 10:10 AM EDT Office Visit [facility] [address] [place] [address] Wanda Chi APRN-WRAP YARN SORTER [address] [place] [address] 01/08/2025 1:00 PM EDT Office Visit [facility] [address] [place] [address] Malgorzata Holliday NP [address] [place] [address] 01/16/2025 8:45 AM EDT Office Visit [facility] [address] [place] [address] Martha Ervin MD [address] [place] [address] documented as of this encounter Visit Diagnoses Diagnosis Generalized anxiety disorder Generalized anxiety disorder documented in this encounter Care Teams Director Of Search Engine Optimization Relationship Specialty Start Date End Date Shaikh Rae MD PCP - General Internal Medicine 12/20/22 05/29/23 Shaikh Rae MD [address] [place] [address] PCP - General Internal Medicine 05/30/23 12/11/23 Ajay Gates MD [address] [place] [address] PCP - General Family Medicine 12/12/23 Erica Johnson NP [address] [place] [address] Nurse Practitioner Family Medicine 12/12/23 documented as of this encounter
--- OUTSIDE RECORDS SUMMARY | 2024-11-13 07:07 | XMS_ITS | Encounter Summary ---
Author Organization [facility] Address [address] [place] [address] Care Team Providers Care Trimmer Meat Name Role Phone Shaikh LEONID Rae Primary Care Provider [phone] Ajay Gates MD Primary Care Provider [phone] Erica Johnson NP Unavailable [phone] Reason for Visit * Reason Comments Med Refill Encounter Details Date Type Department Care Team (Late st Contact Info) Description 07/26/2023 Refill [facility] [address] [place] [address] Shaikh Rae MD [address] [place] [address] Type 2 diabetes mellitus with diabetic polyneuropathy (HCC) Social History Tobacco Use Types Packs/Day Years [...] Answer Date Recorded Patient Health Questionnaire-2 Score 0 07/04/2023 Sex and Gender Information Value Date Recorded Sex Assigned at Male 10/01/2023 12:03 PM EDT Legal Sex Male 6:56 PM EDT Gender Identity Male 10/01/2023 12:03 PM EDT Sexual Orientation Not on file documented as of this encounter Miscellaneous Notes * Telephone Encounter - Shaikh Butch MD - 07/27/2023 10:32 AM EDT Approving, but needs appt for additional refills. documented in this encounter Plan of Treatment Upcoming Encounters Date Type Department Care Team (Late st Contact Info) Description 12/31/2024 10:10 AM EDT Office Visit [facility] [address] [place] [address] Wanda Chi APRN-MARLI [address] [place] [address] 01/08/2025 1:00 PM EDT [facility] [address] [place] [address] Malgorzata Holliday NP [address] [place] [address] 01/16/2025 8:45 AM EDT Office Visit [facility] [address] [place] [address] Martha Ervin MD [address] [place] [address] documented as of this encounter Visit Diagnoses Diagnosis Type 2 diabetes mellitus with diabetic polyneuropathy (HCC) documented in this encounter Additional Health Concerns Assessment Noted Time PHQ-9 Depression Total Score: 13 024 9:21 AM EST documented as of this encounter Care Teams Trimmer Meat Relationship Specialty Start Date End Date Shaikh Rae MD [address] [place] [address] PCP - General Internal Medicine 05/30/23 12/11/23 Ajay Gates MD [address] [place] [address] PCP - General Family Medicine 12/12/23 Erica Johnson NP [address] [place] [address] Nurse Practitioner Family Medicine 12/12/23 documented as of this encounter
--- OUTSIDE RECORDS SUMMARY | 2024-11-13 07:07 | XMS_ITS | Encounter Summary ---
Author Organization [facility] Address [address] [place] [address] Care Team Providers Care Manager Physical Name Role Phone Shaikh LEONID Rae Primary Care Provider [phone] Ajay Gates MD Primary Care Provider [phone] Erica Johnson NP Unavailable [phone] Encounter Details Date Type Department Care Team (Late st Contact Info) Description 07/27/2023 Orders Only [facility] [address] [place] [address] Shaikh Rae MD [address] [place] [address] Social History Tobacco Use Types Packs/Day Years [...] on file documented as of this encounter Plan of Treatment Upcoming Encounters Date Type Department Care Team (Late st Contact Info) Description 12/31/2024 10:10 AM EDT Office Visit [facility] [address] [place] [address] Wanda Chi APRN-ROLL SETTER [address] [place] [address] 01/08/2025 1:00 PM EDT Office Visit [facility] [address] [place] [address] Malgorzata Holliday NP [address] [place] [address] 01/16/2025 8:45 AM EDT Office Visit [facility] [address] [place] [address] Martha Ervin MD [address] [place] [address] documented as of this encounter Visit Diagnoses Not on filedocumented in this encounter Additional Health Concerns Assessment Noted Time PHQ-9 Depression Total Score: 13 024 9:21 AM EST documented as of this encounter Care Teams Manager Physical Relationship Specialty Start Date End Date Shaikh Rae MD [address] [place] [address] PCP - General Internal Medicine 05/30/23 12/11/23 Ajay Gates MD [address] [place] [address] PCP - General Family Medicine 12/12/23 Erica Johnson NP [address] [place] [address] Nurse Practitioner Family Medicine 12/12/23 documented as of this encounter
--- OUTSIDE RECORDS SUMMARY | 2024-11-13 07:08 | XMS_ITS | Encounter Summary ---
Author Organization [facility] Address [address] [place] [address] Care Team Providers Care Inspector And Sorter Name Role Phone Ajay Gates MD Primary Care Provider [phone] Erica Johnson EXPRESSIVE MUSIC THERAPIST Unavailable Encounter Details Date Type Department Care Team (Latest Contact Info) Description 11/05/2024 Travel Social History Tobacco Use Types Packs/Day Years [...] [address] [place] [address] Wanda Chi APRN-CHECK EXAMINER [address] [place] [address] 01/08/2025 1:00 PM EDT Office Visit [facility] [address] [place] [address] Malgorzata Holliday NP [address] [place] [address] 01/16/2025 8:45 AM EDT Office Visit [facility] [address] [place] [address] Martha Ervin MD [address] [place] [address] documented as of this encounter Visit Diagnoses Not on filedocumented in this encounter Additional Health Concerns Assessment Noted Time PHQ-9 Depression Total Score: 13 024 9:21 AM EST documented as of this encounter Care Teams Inspector And Sorter Relationship Specialty Start Date End Date Ajay Gates MD [address] [place] [address] PCP - General Family Medicine 12/12/23 Erica Johnson NP [address] [place] [address] Nurse Practitioner Family Medicine 12/12/23 documented as of this encounter
--- OUTSIDE RECORDS SUMMARY | 2024-11-13 07:08 | XMS_ITS | Encounter Summary ---
Author Organization [facility] Address [address] [place] [address] Care Team Providers Care Restaurant Culinary Manager Name Role Phone Ajay Gates MD Primary Care Provider [phone] Erica Johnson MIDDLE SCHOOL TECHNOLOGY TEACHER Unavailable Encounter Details Date Type Department Care Team (Late st Contact Info) Description 11/12/2024 Results Follow-Up [facility] [address] [facility] [address] [place] [address] Sowmya Dumont MD [address] [facility] [address] [place] [address] Social History Tobacco Use Types Packs/Day Years [...] [address] [place] [address] Wanda Chi APRN-LABORER [employer] [address] [place] [address] 01/08/2025 1:00 PM EDT Office Visit [facility] [address] [place] [address] Malgorzata Holliday NP [address] [place] [address] 01/16/2025 8:45 AM EDT Office Visit [facility] [address] [place] [address] Martha Ervin MD [address] [place] [address] documented as of this encounter Visit Diagnoses Not on filedocumented in this encounter Additional Health Concerns Assessment Noted Time PHQ-9 Depression Total Score: 13 024 9:21 AM EST documented as of this encounter Care Teams Restaurant Culinary Manager Relationship Specialty Start Date End Date Ajay Gates MD [address] [place] [address] PCP - General Family Medicine 12/12/23 Erica Johnson NP [address] [place] [address] Nurse Practitioner Family Medicine 12/12/23 documented as of this encounter
--- OUTSIDE RECORDS SUMMARY | 2024-11-13 07:08 | XMS_ITS | Encounter Summary ---
Author Organization [facility] Address [address] [place] [address] Care Team Providers Care Engineering Writer Name Role Phone Ajay Gates MD Primary Care Provider [phone] Erica Johnson NP Unavailable [phone] Encounter Details Date Type Department Care Team (Late st Contact Info) Description 10/31/2024 Clinisync Result Encounter [facility] External Department Unsolicited Malgorzata Holliday NP [address] [place] [place] [address] Social History Tobacco Use Types Packs/Day Years [...] [address] [place] [phone] Alon Wanda MICHAEL MorleyN-PARTS SALES MANAGER [address] [place], [place] [id number] 01/08/2025 1:00 PM EDT Office Visit [facility] [address] [place] [address] Malgorzata Holliday NP [address] [place] [address] 01/16/2025 8:45 AM EDT Office Visit [facility] [address] [place] [address] Martha Ervin MD [address] [place] [address] documented as of this encounter Procedures Procedure Name Priority Date/Time Associated Diagnosis Comments SRMCOH PROSTATE SPECIFIC ANTIGEN SCRN Routine 10/31/2024 8:13 AM EDT [facility] CMP (CMP) (FOR REMOTE [facility] USE) Routine 10/31/2024 8:13 AM EDT ALL THYROID STIM HORMONE Routine 10/31/2024 8:13 AM EDT ALL LIPID PROFILE (FASTING) Routine 10/31/2024 8:13 AM EDT ALL CBC WITH AUTO DIFF Routine 10/31/2024 8:13 AM EDT TBH UA (CLEAN/CATCH) MICROSCOPIC IF INDICATE Routine 10/31/2024 8:08 AM EDT TBH MICROALB CREAT RATIO RANDOM Routine 10/31/2024 8:08 AM EDT documented in this encounter Results * ALL THYROID STIM HORMONE (10/31/2024 8:13 AM EDT) THYROID STIMULATING HORMONE 0.936 0.358 - 3.740 uIU/mL TBH 10/31/2024 8:13 AM EDT 10/31/2024 8:13 AM EDT Narrative CLINISYNC - 10/31/2024 9:43 AM EDT Malgorzata Holliday NP CLINISYNC Final Result Performing Organization Address City/[facility]/ZIP Co de Phone Number CLINISYNC TB * (ABNORMAL) ALL LIPID PROFILE (FASTING) (10/31/2024 8:13 AM EDT) TRIGLYCERIDES 168(H) <=150 mg/dL TBH CHOLESTEROL 117 <=200 mg/dL TB HDL CHOLESTEROL 41 40 - 60 mg/dL TB Comment: > or =60 mg/dl - LOW CARDIOVASCULAR RISK <40 mg/dl - HIGH CARDIOVASCULAR RISK LDL CHOLESTEROL CALCULATED 43.0 mg/dL TB Comment: <100 mg/dl OPTIMAL 100-129 mg/dl NEAR OR ABOVE OPTIMAL 130-159 mg/dl BORDERLINE HIGH 160-189 mg/dl HIGH >190 mg/dl VERY HIGH VLDL CHOLESTEROL 33.6 mg/dL TB CHOL HDL RATIO 117.0 TB Comment: 3.3 - 4.4 LOW RISK 4.4 - 7.1 AVERAGE RISK 7.1 - 11.0 MODERATE RISK >11.0 HIGH RISK 10/31/2024 8:13 AM EDT 10/31/2024 8:13 AM EDT Narrative CLINISYNC - 10/31/2024 9:43 AM EDT Malgorzata Holliday NP CLINISYNC Final Result CLINIS[facility]NC TB * (ABNORMAL) [facility] CMP (CMP) (FOR REMOTE [facility] USE) (10/31/2024 8:13 AM EDT) SODIUM 142 136 - 145 mmol/L TBH POTASSIUM 4.6 3.5 - 5.1 mmol/L TBH CHLORIDE 105 98 - 107 mmol/L TBH CARBON DIOXIDE 26.8 21.0 - 32.0 mmol/L TBH ANION GAP 14.8 TBH GLUCOSE 154(H) 74 - 106 mg/dL TBH BLOOD UREA NITROGEN 21.0(H) 7.0 - 18.0 mg/dL TBH CREATININE 1.32(H) 0.70 - 1.30 mg/dL TBH TBH EGFR-AF [place] >60 >=60 mL/min/1. 73m 2 TBH TBH EGFR-NON AF [place] 55(L) >=60 mL/min/1. 73m 2 TBH BUN CREATININE RATIO 15.9 TBH CALCIUM 8.9 8.5 - 10.1 mg/dL TBH BILIRUBIN TOTAL 0.3 0.2 - 1.0 mg/dL TBH ASPARTATE AMINO TRANSFERASE 88(H) 15 - 37 U/L TBH ALANINE AMINOTRANSFERASE 120(H) 16 - 63 U/L TBH ALKALINE PHOSPHATASE 86 46 - 116 U/L TBH TOTAL PROTEIN 7.1 6.4 - 8.2 g/dL TBH ALBUMIN LEVEL 3.7 3.4 - 5.0 g/dL TBH GLOBULIN 3.4 g/dL TBH ALBUMIN GLOBULIN RATIO 1.1 TBH 10/31/2024 8:13 AM EDT 10/31/2024 8:13 AM EDT Narrative CLINISYNC - 10/31/2024 9:43 AM EDT us Malgorzata Holliday NP CLINISYNC Final Result CLINISYNC TB * SRMCOH PROSTATE SPECIFIC ANTIGEN SCRN (10/31/2024 8:13 AM EDT) PROSTATE SPECIFIC ANTIGEN SCRN 0.27 <=4.00 ng/mL TBH 10/31/2024 8:13 AM EDT 10/31/2024 8:13 AM EDT Narrative CLINISYNC - 10/31/2024 9:26 AM EDT us Malgorzata Nixonmildredcortes ACE CLINISYNC Final Result [facility] * (ABNORMAL) ALL CBC WITH AUTO DIFF (10/31/2024 8:13 AM EDT) TBH WBC 10.7 4.0 - 11.0 10 3/uL TBH TBH RBC 4.54(L) 4.70 - 6.10 10 6/uL TBH TBH HGB 13.9(L) 14.0 - 18.0 g/dL TBH TBH HCT 41.6(L) 42.0 - 54.0 % TBH TBH MCV 91.6 80.0 - 94.0 fL TBH TBH MCH 30.6 25.9 - 34.0 pg TBH TBH MCHC 33.4 29.9 - 35.2 g/dL TBH TBH RDW 14.2 11.0 - 15.0 % TBH TBH PLT 239 150 - 450 10 3/uL TBH TBH MPV 8.9(L) 9.5 - 13.5 fL TBH NEUTROPHILS PERCENT AUTO 49.6 43.0 - 75.0 % TBH LYMPHOCYTES PERCENT AUTO 33.9 20.5 - 60.0 % TBH MONOCYTES PERCENT AUTO 9.2 1.7 - 12.0 % TBH TBH EO % 5.6 0.9 - 7.0 % TBH BASOPHILS PERCENT AUTO 0.9 0.2 - 2.0 % TBH IMMATURE GRANULOCYTES PCT AUTO 0.8(H) 0.0 - 0.5 % TBH NEUTROPHILS ABSOLUTE AUTO 5.3 1.4 - 6.5 10 3/uL TBH LYMPHOCYTES ABSOLUTE AUTO 3.6 1.2 - 3.8 10 3/uL TBH MONOCYTES ABSOLUTE AUTO 1.0(H) 0.3 - 0.8 10 3/uL TBH TBH EO # 0.6 0.0 - 0.7 10 3/uL TBH BASOPHILS ABSOLUTE AUTO 0.1 0.0 - 0.1 10 3/uL TBH IMMATURE GRANULOCYTES ABS AUTO 0.09(H) 0.00 - 0.03 10 3/uL TBH 10/31/2024 8:13 AM EDT 10/31/2024 8:13 AM EDT Narrative CLINISYNC - 10/31/2024 8:29 AM EDT Malgorzata Holliday NP CLINISYNC Final Result Performing Organization Address [facility] Co de Phone Number CLINISYCA TB * TBH MICROALB CREAT RATIO RANDOM (10/31/2024 8:08 AM EDT) MICROALBUMIN URINE RANDOM <1.3 <=30.0 mg/dL TBH CREATININE URINE RANDOM 124.26 20.00 - 300.00 mg/dL TBH 10/31/2024 8:08 AM EDT 10/31/2024 8:13 AM EDT Narrative CLINISYNC - 10/31/2024 9:17 AM EDT Malgorzata Holliday NP CLINISYNC Final Result Performing Organization Address [facility] de Phone Number CLINISYCA TB * (ABNORMAL) TBH UA (CLEAN/CATCH) MICROSCOPIC IF INDICATE (10/31/2024 8:08 AM EDT) COLOR URINE YELLOW YELLOW TBH CLARITY URINE CLEAR CLEAR TBH SPECIFIC GRAVITY URINE 1.015 1.005 - 1.025 TBH PH URINE 6.0 5.0 - 9.0 TBH PROTEIN URINE NEGATIVE NEG/TRACE mg/dL TBH GLUCOSE URINE UA >=1000(A) NEGATIVE mg/dL TBH BILIRUBIN URINE NEGATIVE NEGATIVE TBH KETONES URINE TRACE(A) NEGATIVE mg/dL TBH BLOOD URINE NEGATIVE NEGATIVE TBH NITRITE URINE NEGATIVE NEGATIVE TBH UROBILINOGEN URINE 0.2 0.2 - 1.0 EU/dL TBH LEUKOCYTE ESTERASE URINE NEGATIVE NEGATIVE TBH URINE MICROSCOPIC INDICATED NO TBH 10/31/2024 8:08 AM EDT 10/31/2024 8:13 AM EDT Narrative CLINISYNC - 10/31/2024 8:30 AM EDT Malgorzata Aichholz REIMBURSEMENT AUDITOR CLINISYNC Final Result CLINISYNC TB documented in this encounter Visit Diagnoses Not on filedocumented in this encounter Additional Health Concerns Assessment Noted Time PHQ-9 Depression Total Score: 13 024 9:21 AM EST documented as of this encounter Care Teams Engineering Writer Relationship Specialty Start Date End Date Ajay Gates MD [address] [place] [phone] PCP - General Family Medicine 12/12/23 Erica Johnson NP [address] [place] [address] Nurse Practitioner Family Medicine 12/12/23 documented as of this encounter
--- OUTSIDE RECORDS SUMMARY | 2024-11-13 07:08 | XMS_ITS | Encounter Summary ---
Author Organization [facility] Address [address] [place] [address] Care Team Providers Care Pin Attacher Name Role Phone Ajay Gates MD Primary Care Provider [phone] Erica Johnson NP Unavailable [phone] Encounter Details Date Type Department Care Team (Late st Contact Info) Description 11/07[facility]2024 [facility] [address] [place] [address] Malgorzata Holliday NP [address] [place] [address] Social History Tobacco Use Types Packs/Day Years [...] encounter Miscellaneous Notes * Telephone Encounter - EDNA RICHMOND - 11/07/2024 6:33 PM EDT Text Test Data Developer Hi, this is Inge calling from the referral department at [facility]. I am calling in regards to a patient of Malgorzata Chao that we received a referral for. It is Kev Torres As in Alec Damian A date of [id number]. So Malgrozata Estevez will refer to him for this Faas And Gird Dr. Mock reviewed the referral and he said, we can go ahead and schedule an e. G. D. However, the patient does need clearance from the driller and reamer to schedule that. So I was calling to see if he has a driller and reamer he could get scheduled with or if not if you wanted to refer him to our [facility] physician groupcardiology to get clearance. If you could just give me a call back at [phone]. Thanks, maye villavicencio. documented in this encounter Plan of Treatment Upcoming Encounters Date Type Department Care Team (Late st Contact Info) Description 12/31/2024 10:10 AM EDT Office Visit [facility] [address] [place] [address] Wanda Chi, NET MVC DEVELOPER-RECTIFYING OPERATOR [address] [place] [address] 01/08/2025 1:00 PM EDT Office Visit [facility] [address] [place] [phone] Malgorzata Holliday NP [address] [place] [address] 01/16/2025 8:45 AM EDT Office Visit [facility] [address] [place] [address] Martha Ervin MD [address] [place] [address] documented as of this encounter Visit Diagnoses Not on filedocumented in this encounter Additional Health Concerns Assessment Noted Time PHQ-9 Depression Total Score: 13 024 9:21 AM EST documented as of this encounter Care Teams Pin Attacher Relationship Specialty Start Date End Date Ajay Gates MD [address] [place] [phone] PCP - General Family Medicine 12/12/23 Erica Johnson NP [address] [place] [address] Nurse Practitioner Family Medicine 12/12/23 documented as of this encounter
--- OUTSIDE RECORDS SUMMARY | 2024-11-13 07:08 | XMS_ITS | Encounter Summary ---
Author Organization [facility] Address [address] [place] [address] Care Team Providers Care Assembler Movement Name Role Phone Ajay Gates MD Primary Care Provider [phone] Erica Johnson NP Unavailable [phone] Encounter Details Date Type Department Care Team (Late st Contact Info) Description 10/30/2024 Abstract [facility] [address] [place] [address] Malgorzata Holliday NP [address] [place] [address] Social History Tobacco Use Types Packs/Day Years [...] [address] [place] [address] Wanda Chi APRN-DECAL TRANSFERRER [address] [place] [address] 01/08/2025 1:00 PM EDT Office Visit [facility] [address] [place] [address] Malgorzata Holliday NP [address] [place] [address] 01/16/2025 8:45 AM EDT Office Visit [facility] [address] [place] [phone] Martha Ervin MD [address] [place] [address] documented as of this encounter Visit Diagnoses Not on filedocumented in this encounter Additional Health Concerns Assessment Noted Time PHQ-9 Depression Total Score: 13 05/30/ 024 9:21 AM EST documented as of this encounter Care Teams Assembler Movement Relationship Specialty Start Date End Date Ajay Gates MD [address] [place] [address] PCP - General Family Medicine 12/12/23 Erica Johnson NP [address] [place] [phone] Nurse Practitioner Family Medicine 12/12/23 documented as of this encounter
--- OUTSIDE RECORDS SUMMARY | 2024-11-13 07:08 | XMS_ITS | Encounter Summary ---
Author Organization [facility] Address [address] [place] [place] [address] Care Team Providers Care Research Physician Name Role Phone Ajay Gates MD Primary Care Provider [phone] Erica Johnson NP Unavailable [phone] Encounter Details Date Type Department Care Team (Late st Contact Info) Description 10/31/2024 Orders Only [facility] [address] [place] [address] Malgorzata Holliday NP [address] [place] [phone] Elevated liver function tests (Primary Dx) Social History Tobacco Use Types Packs/Day Years [...] [address] [place] [address] Wanda Chi APRN-MARLI [address] [place] [address] 01/08/2025 1:00 PM EDT Office Visit [facility] [address] [place] [address] Malgorzata Holliday NP [address] [place] [address] 01/16/2025 8:45 AM EDT Office Visit [facility] [address] [place] [address] Martha Ervin MD [address] [place] [address] Scheduled Orders Name Type Priority Associated Diagnoses Orde r Schedule Hepatic function panel Lab Routine Elevated liver function tests Expected: 11/14/2024 (Approximate), Expires: 10/31/2025 Hepatitis panel, acute Lab Routine Elevated liver function tests Expected: 11/14/2024 (Approximate), Expires: 10/31/2025 documented as of this encounter Visit Diagnoses Diagnosis Elevated liver function tests- Primary Other abnormal blood chemistry documented in this encounter Additional Health Concerns Assessment Noted Time PHQ-9 Depression Total Score: 13 024 9:21 AM EST documented as of this encounter Care Teams Research Physician Relationship Specialty Start Date End Date Ajay Gates MD [address] [place] [phone] PCP - General Family Medicine 12/12/23 Erica Johnson NP [address] [place] [address] Nurse Practitioner Family Medicine 12/12/23 documented as of this encounter
--- OUTSIDE RECORDS SUMMARY | 2024-11-13 07:08 | XMS_ITS | Clinical Summary ---
Author Organization [facility] Address [address] [place] [address] Care Team Providers Care Paint Spray Inspector Name Role Phone Ajay Gates MD Primary Care Provider [phone] Erica Johnson SEALING AND CANCELING MACHINE OPERATOR Unavailable [phone] Allergies Active Allergy Reactions Criticality Noted Date Comments Penicillins 05/24/2023 Sulfa Antibiotics 05/24/2023 Medications ASPIRIN 81 MG chewable tablet Chew 81 mg Daily Active Methylcobalamin (V22-KGAIXG PO) Take 1,000 mg by mouth 1 (one) time each day Active metoprolol succinate XL (Toprol-XL) 25 MG 24 hr tablet Take 25 mg by mouth Daily 08/15/19 24 Active Blood Pressure Monitoring (Blood Pressure Cuff) miscIndications:Pr imary hypertension 1 each in the morning and 1 each before bedtime. 1 each 02/13/20 24 Active hydrOXYzine HCl (Atarax) 25 MG tabletIndications: BREONNA (generalized anxiety disorder) Take 1 tablet (25 mg) by mouth every 8 (eight) hours if needed for itching 120 tablet 3 03/26/20 24 Active lisinopril 10 MG tabletIndications: Type 2 diabetes mellitus with diabetic polyneuropathy (HCC),Type 2 diabetes mellitus with stage 3a chronic kidney disease, without long-term current use of insulin (HCC),Primary hypertension Take 1 tablet (10 mg) by mouth Daily 90 tablet 1 03/26/20 24 Active nitroglycerin (Nitrodur) 0.2 MG/HR patch Place 1 patch on the skin Daily 06/12/19 25 Active nitroglycerin (Nitrostat) 0.[address] 0.4 mg under the tongue every 5 (five) minutes if needed for chest pain 06/12/19 Active Continuous Glucose Carpet Binder (Dexcom G7 Carpet Binder) deviceIndications: Type 2 diabetes mellitus with diabetic polyneuropathy (HCC) 1 each continuously 1 each 06/25/19 Active Continuous Glucose Sensor (Dexcom G7 Sensor) miscIndications:Ty pe 2 diabetes mellitus with diabetic polyneuropathy (HCC) 1 each continuously 3 each 11 06/25/19 Active empagliflozin (Jardiance) 25 MGIndications:Type 2 diabetes mellitus with diabetic polyneuropathy (HCC) Take 1 tablet (25 mg) by mouth Daily 90 tablet 10/03/19 Active escitalopram (Lexapro) 20 MG tabletIndications: Generalized anxiety disorder Take 1 tablet (20 mg) by mouth Daily 90 tablet 10/03/19 Active glimepiride (Amaryl) 2 MG tabletIndications: Type 2 diabetes mellitus with diabetic polyneuropathy (HCC) Take 1 tablet (2 mg) by mouth in the morning. Take before meals. 90 tablet 10/03/19 025 Active metFORMIN (Glucophage) 1000 MG tabletIndications: Type 2 diabetes mellitus with diabetic polyneuropathy (HCC),Type 2 diabetes mellitus with stage 3a chronic kidney disease, without long-term current use of insulin (HCC) Take 1 tablet (1,000 mg) by mouth in the morning and 1 tablet (1,000 mg) in the evening. Take with meals. 180 tablet 10/03/19 Active omeprazole (PriLOSEC) [address] capsuleIndications :Gastroesophageal reflux disease without esophagitis Take 1 capsule (20 mg) by mouth in the morning. Take before meals. Do not crush or chew. 90 capsule 10/03/19 025 Active rosuvastatin (Crestor) 20 MG tabletIndications: Hyperlipidemia, unspecified Take 1 tablet (20 mg) by mouth Daily 90 tablet 1 10/03/19 025 Active Dulaglutide (Trulicity) 0.75 MG/0.5ML solution auto-injectorIndic ations:Type 2 diabetes mellitus with stage 3a chronic kidney disease, without long-term current use of insulin (HCC) Inject 0.75 mg under the skin every 7 (seven) days for 28 days 2 mL 1 10/03/19 Active pregabalin (Lyrica) 150 MG capsuleIndications :Type 2 diabetes mellitus with diabetic polyneuropathy (HCC) Take 1 capsule (150 mg) by mouth in the morning and 1 capsule (150 mg) in the evening and 1 capsule (150 mg) before bedtime. 90 capsule 2 10/03/19 025 Active fluocinonide (Lidex) 0.05 % creamIndications:P soriasis vulgaris Apply thin layer (2 g) to the arms and legs up to twice a day when flared, do not use one the face, groin, or underarms, 30 day supply 60 g 11 11/06/19 Active Active Problems Problem Noted Date Diagnosed Date Esophageal dysphagia 11/05/2024 Assessment & Plan (11/05/2024 2:21 PM EDT): Continue PPI Refer to GI Elevated liver function tests 10/31/2024 Assessment & Plan (11/05/2024 2:18 PM EDT): Labs completed 10/26/24, will have repeat in 2 weeks due around 11/14/24 Check US of liver Open wounds involving multiple regions of upper extremity 10/17/2024 Tobacco dependence 10/02/2024 Assessment & Plan (11/05/2024 7:00 AM EDT): The patient has been advised of the risks of continued smoking: stroke, VT, all forms of cancer, lung disease, and . Options for quitting smoking include: cold turkey, hypnosis, acupuncture, nicotine replacement meds (gum, lozenges, and patches), Buproprion, and Varenicline. At this time pt is encouraged to evaluate their goals for wanting to quit smoking, and reach out to provider when ready to start this process Assessment & Plan (10/02/2024 7:30 AM EDT): The patient has been advised of the risks of continued smoking: stroke, VT, all forms of cancer, lung disease, and . Options for quitting smoking include: cold turkey, hypnosis, acupuncture, nicotine replacement meds (gum, lozenges, and patches), Buproprion, and Varenicline. At this time pt is encouraged to evaluate their goals for wanting to quit smoking, and reach out to provider when ready to start this process Prostate cancer screening 10/02/2024 Overview (10/31/2024): 10/31/24 0.27 Assessment & Plan (10/02/2024 7:31 AM EDT): Check labs COPD (chronic obstructive pulmonary disease) 08/2024 Assessment & Plan (11/05/2024 6:59 AM EDT): Current meds: none Acid reflux 02/13/2024 Assessment & Plan (10/02/2024 7:26 AM EDT): Recommendations: freq small meals, nothing to eat or drink at least 2 hours prior to bed, limit caffeine, alcohol, as well as spicy foods Meds to limit or avoid if possible: NSAIDS Elevate HOB if possible Current meds: PPI Assessment & Plan (02/13/2024 11:35 AM EDT): Pt reports primary complaint is an itching in his throat and coughing, especially at night. Likely related to acid reflux. Will trial omeprazole 20mg for 6 weeks. Hx of psoriasis 02/13/2024 Assessment & Plan (02/13/2024 10:12 AM EDT): Has multiple areas of plaques on knees, hands, elbows. States he does not want biologics or injectables at this time. Will refer to derm. Dysphagia 01/05/2024 Assessment & Plan (02/13/2024 11:34 AM EDT): Pt states he did not have EGD done; Today denies difficulty swallowing foods or water, states his primary complaint is an itching in his throat and coughing, especially at night. Likely related to acid reflux. Will trial omeprazole 20mg for 6 weeks. Assessment & Plan (01/05/2024 4:30 PM EDT): Has been having dysphagia recently- Especially with thick foods and water Agreeable to Fluoroscopy/KUB to rule out pathological cause. History of cardiac catheterization 10/05/2023 Type 2 diabetes mellitus with diabetic polyneuro jerry 10/05/2023 Assessment & Plan (10/02/2024 5:05 PM EDT): Freq foot inspections, proper fitiing shoes and socks Adequate DM control Lyrica OARRS Assessment & Plan (10/05/2023 10:39 AM EDT): On lyrica for it. Symptoms well controlled on it Obesity (BMI 30-39.9) 06/07/2023 Assessment & Plan (10/02/2024 7:27 AM EDT): Discussed with patient their BMI (actual, verses recommended). We have also discussed lifestyle modifications: attempts to perform physical activity as chronic conditions allow, also to monitor dietary intake: increasing protein/fruits/veggies and lowering carb intake (unless contraindicated). Limit sodas, juices, and sugary drinks. BREONNA (generalized anxiety disorder) 05/30/2023 Assessment & Plan (10/02/2024 2:38 PM EDT): Current meds: atarax prn, lexapro PHQ 9=6 BREONNA 7=13 Assessment & Plan (06/25/2024 9:27 AM EST): Currently taking Lexapro to 20mg Has significant life stressors, wages being garnished. Primary caregiver fro friend. Taking Hydroxyzine PRN. Feels he would benefit from medications being increased but declines wanting to change medications or adding any new medications at this time. Discussed therapy and bringing in additional resources. Provided pt information to social media executive for additional resources. Assessment & Plan (03/26/2024 9:20 AM EST): Currently taking Lexapro to 20mg Has significant life stressors, wages being garnished. Taking Hydroxyzine PRN. States anxiety and depression has decreased since increasing dose. Reports anxiety is much better, palpitations and restlessness have improved. Referral was sent to , pt has not yet scheduled appointment, reports he will soon. Assessment & Plan (02/13/2024 11:33 AM EDT): Increased Lexapro to 20mg last OV; Has [...] hotline information given. Referral sent to . Assessment & Plan (01/05/2024 2:27 PM EDT): Taking Lexapro 10mg Reports is having more episodes of anxiety recently, uses the hydroxyzine PRN.Does not feel like it is working. PRN. Will consider increasing Lexapro dosing. Denies SI/HI. Increased Lexapro to 20mg. Assessment & Plan (10/05/2023 10:38 AM EDT): Well controlled on Lexapro 10 mg . Uses hydroxyzine as needed. No adverse effects reported. C/w same Assessment & Plan (07/04/2023 9:42 AM EST): Patient was last seen for poorly controlled anxiety, racing thoughts, inability to sleep at night because of anxiety. He reported feeling overwhelmed and anxious about many things in general and it affects his quality of life and ability to perform well at work. He was started on Lexapro 10 mg daily. No adverse effects. He reports improved sleep on it. He thinks every now and then he felt he needed extra help but overall the medication worked well for him. Will add hydroxyzine as needed for acute anxiety. Assessment & Plan (05/30/2023 10:14 AM EST): Patient reports poorly controlled anxiety, racing thoughts, inability to sleep at night because of anxiety. He feels overwhelmed and anxious about many things in general and it affects his quality of life and ability to perform well at work. He was started on Lexapro 10 mg daily but did not use it consistently as he was not sure how to use. He was provided education on Lexapro again and he will start using it daily. He will follow up with us in a month to follow up on response to treatment. Chronic heart failure with preserved ejection fr action 05/30/2023 Assessment & Plan (10/02/2024 7:25 AM EDT): Current meds: asa, jardiance, mariah, b rashawn, statin Assessment & Plan (05/30/2023 10:15 AM EST): Euvolemic. Asymptomatic. C/w BP control, low salt diet, also on Jardiance. Atherosclerosis of [place] co ronary artery without angina pectoris 05/17/2023 Assessment & Plan (10/02/2024 7:25 AM EDT): Meds: asa, statin, bl rashawn, SGLT 2, statin Assessment & Plan (05/30/2023 10:15 AM EST): S/p PCI on 2010. Follows [facility]. On ASA, BB, Statin. Denies any symptoms concerning for angina. Type 2 diabetes mellitus wit h stage 3a chronic kidney disease, without long-term current use of insulin 05/17/2023 Assessment & Plan (11/05/2024 7:00 AM EDT): Check blood sugars daily, notify if <70 [...] tumor Advised of side effects from med Assessment & Plan (10/02/2024 5:07 PM EDT): Check blood sugars daily, notify if <70 [...] tumor Advised of side effects from med Assessment & Plan (06/25/2024 9:33 AM EST): Currently taking Glimepiride, Jardiance, metformin. Most recent labs: hemoglobin A1C 7.9% in office today Average FSBS range from BGs range between 120 and 140 Checks BG levels using: standard BG meter. Is requesting a continuous BG monitor. Reports several episodes of hypoglycemia in the evening and dianeticist hours. Will decrease glimepiride to once daily dosing today. Patient educated on lifestyle modifications, dietary restrictions, signs and symptoms of hypoglycemia/hyperglycemia and importance of eating regular consistent meals. Stressed upon importance of checking blood glucose at home and bring blood glucose log to appointments. All questions, concerns answered and addressed. Encouraged to call office if persistent hypoglycemia/hyperglycemia on home glucose monitoring noted. Assessment & Plan (03/26/2024 9:19 AM EST): Currently taking Glimepiride, Jardiance, metformin. Most recent [...] regimen Is scheduled for DM eye exam. Assessment & Plan (01/05/2024 2:26 PM EDT): BS THIS MORNING 167. PREVIOUSLY BETWEEN 80 [...] DM eye exam: Due; Will schedule appt. Assessment & Plan (10/05/2023 10:37 AM EDT): Most recent labs: hemoglobin A1C 7.0 Average FSBS range from BGs consistently in an acceptable range No episode of hypoglycemia No medication adverse effects reported by the patient. C/w Metformin, glimepiride and Jardiance. Check A1C. Assessment & Plan (05/30/2023 10:12 AM EST): Most recent labs: hemoglobin A1C 7.0 Average FSBS range from BGs consistently in an acceptable range No episode of hypoglycemia No medication adverse [...] persistent hypoglycemia/hyperglycemia on home glucose monitoring noted. C/w Metformin, glimepiride and Jardiance. Hyperlipidemia 05/17/2023 Assessment & Plan (10/02/2024 7:29 AM EDT): On statin therapy Check labs yearly and prn dose changes Assessment & Plan (01/05/2024 2:26 PM EDT): Currently taking Rosuvastatin 20mg Reports myalgias. Will attempt switching to Atorvastatin if ok with cardiology Last lipid panel Triglycerides had increased. States he was not fasting with last lipid panel. Assessment & Plan (10/05/2023 10:38 AM EDT): On Crestor. Check Lipid panel. LDL at goal 06/01 Assessment & Plan (05/30/2023 10:14 AM EST): On Crestor. Check Lipid panel. Hypertension 05/17/2023 Assessment & Plan (11/05/2024 6:59 AM EDT): Please check blood pressure daily and record DASH diet Limit caffeine Take medication as directed Contact office if chest pain, pressure, dizziness, shortness of breath, swelling legs Recommend slow position changes Current meds: mariah, b rashawn Assessment & Plan (10/02/2024 7:25 AM EDT): Please check blood pressure daily and record DASH diet Limit caffeine Take medication as directed Contact office if chest pain, pressure, dizziness, shortness of breath, swelling legs Recommend slow position changes Current meds: mariah, b rashawn Assessment & Plan (06/25/2024 9:27 AM EST): Currently taking Isosorbide Lisinopril Metoprolol Checks BP at home; Has not been checking BP's at home since last OV. Given BP log, advised pt to record BP and bring log back with them to next visit. Assessment & Plan (02/13/2024 11:34 AM EDT): Currently taking Isosorbide Lisinopril Metoprolol Checks BP [...] log back with them to next visit. Assessment & Plan (01/05/2024 2:25 PM EDT): Currently taking Imdur 30mg Metoprolol 25mg Lisinopril 10mg Does not checks BP at home; Denies orthostatic changes, dizziness, cough, shortness of breath, swelling in extremities. Continue current regimen. Given BP log; Instructed to check BP at home and bring log back to next visit. Assessment & Plan (10/05/2023 10:37 AM EDT): BP well controlled. On average less than 130/90. Tolerating Anti hypertensive w/o adverse effects. Well controlled on Lopressor, Lisinopril, Imdur Order routine labs Assessment & Plan (05/30/2023 10:14 AM EST): BP well controlled. On average less than 130/90. Tolerating Anti hypertensive w/o adverse effects. Denies lightheadedness, dizziness, syncope, presyncope. Patient encouraged to continue with home BP monitoring and call office if he experiences orthostatic symptoms or persistently elevated BP. Well controlled on Lopressor, Lisinopril. Check labs . CKD (chronic kidney disease) , symptom management only, stage 3 (moderate) Assessment & Plan (10/02/2024 7:26 AM EDT): Avoid nephrotoxic drugs when possible Goal: adeuquate DM and HTN control Assessment & Plan (01/05/2024 2:27 PM EDT): GFR 58 on labs 1 month ago. GFR stable. Avoid nephrotoxic agents. Continue with Jardiance. Resolved Problems Problem Noted Date Diagnosed Date Resolved Date Smoker 10/05/2023 10/02/2024 Generalized anxiety disorder 10/05/2023 10/02/2024 Assessment & Plan (06/25/2024 9:34 AM EST): Currently taking Lexapro to 20mg Has significant life stressors, wages being garnished. Primary caregiver fro friend. Taking Hydroxyzine PRN. Feels he would benefit from medications being increased but declines wanting to change medications or adding any new medications at this time. Discussed therapy and bringing in additional resources. Provided pt information to social media executive for additional resources. Current every day smoker 05/17/2023 Assessment & Plan (10/02/2024 7:28 AM EDT): The patient has been advised of the risks of continued smoking: stroke, VT, all forms of cancer, lung disease, and . Options for quitting smoking include: cold turkey, hypnosis, acupuncture, nicotine replacement meds (gum, lozenges, and patches), Buproprion, and Varenicline. At this time pt is encouraged to evaluate their goals for wanting to quit smoking, and reach out to provider when ready to start this process Assessment & Plan (01/05/2024 4:34 PM EDT): 1ppd currently. Denies interest in quitting. States it has been worse with anxiety recently, has been smoking more. Counseled on smoking cessation. Assessment & Plan (05/30/2023 10:17 AM EST): Trying to quite smoking. Smokes one pack per day. On nicotine patches. Patient educated and counseled on smoking cessation. Will attempt to control his BREONNA/anxiety first before we start prescribing him Wellbutrin or Chantix that could affect his anxiety.. Encounters Date Type Department Care Team Description 11/12/2024 Results Follow-Up [facility] [address] [place] [address] Sowmya Dumont MD 11/07/2024 Telephone [facility] [address] [place] [address] Malgorzata Holliday NP 11/06/2024 Refill [facility] [address] [place] [phone] Malgorzata Holliday NP BREONNA (generalized anxiety disorder) 11/05/2024 1:40 PM EDT Office Visit [facility] [address] [place] [phone] Malgorzata Holliday NP Type 2 diabetes mellitus with stage 3a chronic kidney disease, without long-term current use of insulin (HCC) (Primary Dx); Chronic obstructive pulmonary disease, unspecified COPD type (HCC); Primary hypertension ; Elevated liver function tests; Obesity (BMI 30-39.9); Tobacco dependence; Esophageal dysphagia 11/05/2024 9:55 AM EDT Office Visit [facility] [address] [place] [address] Wanda Chi APRN-MARLI Psoriasis vulgaris (Primary Dx); Neoplasm of unspecified behavior of bone, soft tissue, and skin 11/05/2024 Bamboo flowsheet [facility] [address] [place] [phone] Wanda Chi APRN-CNP 11/05/2024 Travel 10/31/2024 Orders Only [facility] [address] [place] [address] Malgorzata Holliday NP Elevated liver function tests (Primary Dx) 10/31/2024 Clinisync Result Encounter [facility] Unsolicited Malgorzata Holliday NP 10/30/2024 Abstract [facility] [address] [place] [address] Malgorzata Holliday NP 10/17/2024 Orders Only [facility] [address] [place] [address] Malgorzata Holliday NP Open wounds involving multiple regions of upper extremity (Primary Dx) 10/17/2024 Telephone [facility] [address] [place] [address] Malgorzata Holliday NP Referral 10/02/2024 2:00 PM EDT Office Visit [facility] [address] [place] [address] Malgorzata Holliday NP Type 2 diabetes mellitus with stage 3a chronic kidney disease, without long-term current use of insulin ([facility]) (Primary Dx); Type 2 diabetes mellitus with diabetic polyneuropathy, unspecified whether fci insulin use ([facility]); Atherosclerosis of [place] coronary artery of [place] heart without angina pectoris ; Chronic heart failure with preserved ejection fraction ([facility]); Primary hypertension ; Gastroesophageal reflux disease, unspecified whether esophagitis present; CKD (chronic kidney disease), symptom management only, stage 3 (moderate) ([facility]); Obesity (BMI 30-39.9); Current every day smoker; BREONNA (generalized anxiety disorder) ; Mixed hyperlipidemia ; Tobacco dependence; Prostate cancer screening; Type 2 diabetes mellitus with diabetic polyneuropathy ([facility]); Generalized anxiety disorder ; Gastroesophageal reflux disease without esophagitis; Hyperlipidemia, unspecified 10/02/2024 Bamboo flowsheet [facility] [address] [place] [address] Malgorzata Holliday NP 09/25/2024 10:50 AM EDT Office Visit [facility] [address] [place] [address] Grant Ovalles DPM Contusion of left foot, initial encounter (Primary Dx); Verruca plantaris; Foot pain, left; Foot pain, right; Type 2 diabetes mellitus with diabetic polyneuropathy, unspecified whether fci insulin use ([facility]) 09/25/2024 Bamboo flowsheet [facility] [address] [place] [address] Grant Ovalles DPM 09/04/2024 10:00 AM EDT Office Visit [facility] [address] [place] [address] Grant Ovalles DPM Contusion of left foot, initial encounter (Primary Dx); Verruca plantaris; Foot pain, left; Foot pain, right; Type 2 diabetes mellitus with diabetic polyneuropathy, unspecified whether fci insulin use (HCC) 09/04/2024 Bamboo flowsheet [facility] [address] [place] [address] Grant Ovalles DPM 08/21/2024 11:40 AM EDT Office Visit [facility] [address] [place] [address] Grant Ovalles DPM Verruca plantaris (Primary Dx); Foot pain, left; Foot pain, right; Hallux rigidus of right foot; Hallux rigidus of left foot; Type 2 diabetes mellitus with diabetic polyneuropathy, unspecified whether long distance operator insulin use ([facility]) 08/21/2024 Bamboo flowsheet [facility] [address] [place] [address] Grant Ovalles DPM 08/21/2024 Travel from Last 3 Months Immunizations Immunization Administration Dates Next Due Influenza, injectable, quadr ivalent, preservative free 01/11/2023,01/11/2023,02/20/2022,2020 Influenza, seasonal, injectable 02/07/2020 Influenza, seasonal, injecta ble, preservative free 02/13/2024 Family History Medical History Relation Name Comments Cancer Brother 1 Diabetes Father Heart disease Father Hyperlipidemia Father Hypertension Father Stroke Father Thyroid disease Father Cancer Sister Relation Name Status Comments Brother 1 Brother 2 Alive Brother 3 Alive Father Mother Sister Social History Tobacco Use Types Packs/Day Years Used Date Smoking Tobacco: Every Day Cigarettes Passive Smoke Exposure: Current Tobacco Cessation:Ready to Q uit: Not Asked; Counseling Given: Yes Comments:Moderate cigarette smoker (10-19/day) Alcohol Use Standard [...] PM EDT Sexual Orientation Not on file Last Filed Vital Signs Vital Sign Reading Time Taken Comments Blood Pressure 98/60 11/05/2024 1:40 PM EDT Pulse 86 11/05/2024 1:40 PM EDT Temperature 36.7 C (98.1 F) 11/05/2024 1:40 PM EDT Respiratory Rate 20 11/05/2024 1:40 PM EDT Oxygen Saturation 93% 11/05/2024 1:40 PM EDT Inhaled Oxygen Concentration - - Weight 88.8 kg (195 lb 12.8 oz) 11/05/2024 1:40 PM EDT Height 167.6 cm (5' 6 ) 09/25/2024 10:5 5 AM EDT Body Mass Index 31.6 09/25/2024 10:55 AM EDT Plan of Treatment Upcoming Encounters Date Type Department Care Team (Late st Contact Info) Description 12/31/2024 10:10 AM EDT Office Visit [facility] [address] [place] [phone] Wanda Chi, CARE GIVER-LITHOGRAPH PRINTER [address] [place] [address] 01/08/2025 1:00 PM EDT Office Visit [facility] [address] [place] [phone] Malgorzata Holliday NP [address] [place] [address] 01/16/2025 8:45 AM EDT Office Visit [facility] [address] [place] [address] Martha Ervin MD [address] [place] [address] Health Maintenance Due Date Last Done Comments CT Colonography 1959 Colonoscopy 1959 FIT-DNA 1959 FIT 1959 FOBT 1959 Sigmoidoscopy 1959 Diabetes: Retinopathy Screening 12/06/1969 Diabetes: Hemoglobin A1C 01/02/2025 025, 06/25/2024, 03/26/2024, Additional history exists Influenza Vaccine (#1) 2025 , 01/11/2023, 01/11/2023, Additional history exists Colorectal Cancer Screening 02/12/2025 Postponed from 1960 (Patient Refused) Diabetes: Urine Protein Screening 10/31/2025 10/31/2024, 05/30/2023 Procedures Procedure Name Priority Date/Time Associated Diagnosis Comments SKIN / NAIL BIOPSY Routine 11/05/2024 9: 50 AM EDT Neoplasm of unspecified behavior of bone, soft tissue, and skin DERMATOPATHOLOGY EXAM Routine 11/05/2024 12:00 AM EDT Neoplasm of unspecified behavior of bone, soft tissue, and skin ALL THYROID STIM HORMONE Routine 025 8:13 AM EDT ALL LIPID PROFILE (FASTING) Routine 10/31/2024 8:13 AM EDT [facility] CMP (CMP) (FOR REMOTE [facility] USE) Routine 10/31/2024 8:13 AM EDT [facility] PROSTATE SPECIFIC ANTIGEN SCRN Routine 10/31/2024 8:13 AM EDT ALL CBC WITH AUTO DIFF Routine 8:13 AM EDT [facility] MICROALB CREAT RATIO RANDOM Routine 10/31/2024 8:08 AM EDT [facility] UA (CLEAN/CATCH) MICROSCOPIC IF INDICATE Routine 10/31/2024 8:08 AM EDT POCT GLYCOSYLATED HEMOGLOBIN (HGB A1C) Routine 10/02/2024 2:35 PM EDT Type 2 diabetes mellitus with diabetic polyneuropathy, unspecified whether long distance operator insulin use (HCC) from Last 3 Months Results * Lesion biopsy (11/05/2024 9:50 AM EDT) Narrative Trinidad Elder CarsonandaGABRIELA - 11/05/2024 9:50 AM EDT Type of [...] Amount of lidocaine used: 3.0 cc Wanda Chi CARE GIVER-LITHOGRAPH PRINTER DERM PROCEDURE ORDERAB LES Final Result * Dermatopathology exam (11/05/2024 12:00 AM EDT) SPECIMEN TYPE ------ SPECIMEN: RIGHT FOREARM ------ [facility] ICD10 Code C44.621 [facility] PROTOCOL F - FLAT [facility] Final Diagnosis SQUAMOUS CELL CARCINOMA, WELL-DIFFERENT IATED, INVASIVE. [facility] Gross Text 2 blocks, (4 in 1) (3 in 2) (jmary anne/kb) (11/07/24) [facility] Microscopic Description Microscopic examination performed. [facility] CPT 21866*1 [facility] Skin Topography unknown / Unknown 11/05/2024 9:50 AM EDT Comment:Differential Diagnos is: SCC Check Margins: No Size of lesion: 2.5 x 2.5 cm us Wanda Chi CARE GIVER-LITHOGRAPH PRINTER LAB PATHOLOGY ORDERABL ES Final Result [facility] * [facility] PROSTATE SPECIFIC ANTIGEN SCRN (10/31/2024 8:13 AM EDT) PROSTATE SPECIFIC ANTIGEN SCRN 0.27 <=4.00 ng/mL [facility] 10/31/2024 8:13 AM EDT 10/31/2024 8:13 AM EDT Narrative [facility] - 10/31/2024 9:26 AM EDT us Malgorzata Holliday SEALING AND CANCELING MACHINE OPERATOR [facility] Final Result [facility] * (ABNORMAL) [facility] CMP (CMP) (FOR REMOTE [facility] USE) (10/31/2024 8:13 AM EDT) SODIUM 142 136 - 145 mmol/L [facility] POTASSIUM 4.6 3.5 - 5.1 mmol/L [facility] CHLORIDE 105 98 - 107 mmol/L [facility] CARBON DIOXIDE 26.8 21.0 - 32.0 mmol/L [facility] ANION GAP 14.8 [facility] GLUCOSE 154(H) 74 - 106 mg/dL [facility] BLOOD UREA NITROGEN 21.0(H) 7.0 - 18.0 mg/dL [facility] CREATININE 1.32(H) 0.70 - 1.30 mg/dL [facility] TBH EGFR-AF MACEDONIAN >60 >=60 mL/min/1. 73m 2 TBH TBH EGFR-NON AF MACEDONIAN 55(L) >=60 mL/min/1. 73m 2 [facility] BUN [...] NP [facility] Final Result Performing Organization Address [facility] de Phone Number [facility] * ALL THYROID STIM HORMONE (10/31/2024 8:13 AM EDT) THYROID STIMULATING HORMONE 0.936 0.358 - 3.740 uIU/mL TB 10/31/2024 8:13 AM EDT 10/31/2024 8:13 AM EDT Narrative [facility] - 10/31/2024 9:43 AM EDT Malgorzata Holliday NP [facility] Final Result [facility] * (ABNORMAL) ALL LIPID PROFILE (FASTING) (10/31/2024 8:13 AM EDT) TRIGLYCERIDES 168(H) <=150 mg/dL [facility] CHOLESTEROL 117 <=200 mg/dL [facility] HDL CHOLESTEROL 41 40 - 60 mg/dL TB Comment: > or =60 mg/dl - LOW CARDIOVASCULAR RISK <40 mg/dl - HIGH CARDIOVASCULAR RISK LDL CHOLESTEROL CALCULATED 43.0 mg/dL [facility] Comment: <100 mg/dl OPTIMAL 100-129 mg/dl NEAR [...] Malgorzata Holliday NP [facility] Final Result [facility] * (ABNORMAL) ALL CBC WITH AUTO DIFF (10/31/2024 8:13 AM EDT) TBH WBC 10.7 4.0 - 11.0 10 3/uL TBH TB RBC 4.54(L) 4.70 - 6.10 10 6/uL TBH TBH HGB 13.9(L) 14.0 - 18.0 g/dL TB TB HCT 41.6(L) 42.0 - 54.0 % TB TB MCV 91.6 80.0 - 94.0 fL TB TB MCH 30.6 25.9 - 34.0 pg TBH TB MCHC 33.4 29.9 - 35.2 g/dL TB TB RDW 14.2 11.0 - 15.0 % TB TB PLT 239 150 - 450 10 3/uL [...] NP CL[facility] Final Result Performing Organization Address [facility] de Phone Number [facility] * (ABNORMAL) [facility] UA (CLEAN/CATCH) MICROSCOPIC IF [...] [facility] - 10/31/2024 8:30 AM EDT Malgorzata Holliday NP [facility] Final Result Performing Organization Address [facility] de Phone Number [facility] * [facility]H MICROALB CREAT RATIO RANDOM (10/31/2024 8:08 AM EDT) MICROALBUMIN URINE RANDOM <1.3 <=30.0 mg/dL TBH CREATININE URINE RANDOM 124.26 20.00 - 300.00 mg/dL [facility] 10/31/2024 8:08 AM EDT 10/31/2024 8:13 AM EDT Narrative [facility] - 10/31/2024 9:17 AM EDT us Malgorzata Holliday SEALING AND CANCELING MACHINE OPERATOR [facility] Final Result [facility] * (ABNORMAL) POCT glycosylated hemoglobin (Hb A1C) docked device (10/02/2024 2:35 PM EDT) Hemoglobin A1C 8.5 Blood Venous blood specimen / Unknown 10/02/2024 2:35 PM EDT us Malgorzata Holliday SEALING AND CANCELING MACHINE OPERATOR POINT OF CARE TEST ENTER/EDIT O RDERABLES Final Result from Last 3 Months Insurance [employer] Care Teams Paint Spray Inspector Relationship Specialty Start Date End Date Ajay Gates MD [address] [place] [phone] PCP - General Family Medicine 8/5/24 Erica Johnson NP [address] [place] [address] Nurse Practitioner Family Medicine 12/12/23
--- OUTSIDE RECORDS SUMMARY | 2024-11-13 07:08 | XMS_ITS | Encounter Summary ---
Author Organization [facility] Address [address] [place] [address] Care Team Providers Care Electrical Unit Rebuilder Name Role Phone Ajay Gates MD Primary Care Provider [phone] Erica Johnson HAND FILER BALANCE WHEEL Unavailable [phone] Reason for Visit * Reason Onset Date Comments Med Refill 11/06/2024 Encounter Details Date Type Department Care Team (Late st Contact Info) Description 11/06/2024 Refill [facility] [address] [place] [address] Malgorzata Holliday NP [address] [place] [phone] BREONNA (generalized anxiety disorder) Social History Tobacco Use Types Packs/Day Years [...] [address] [place] [phone] Wanda Chi APRN-ORTHOPEDIC DENTIST [address] [place] [address] 01/08/2025 1:00 PM EDT Office Visit [facility] [address] [place] [phone] Malgorzata Holliday NP [address] [place] [phone] 01/16/2025 8:45 AM EDT Office Visit [facility] [address] [place] [address] Martha Ervin MD [address] [place] [address] documented as of this encounter Visit Diagnoses Diagnosis BREONNA (generalized anxiety disorder) Generalized anxiety disorder documented in this encounter Additional Health Concerns Assessment Noted Time PHQ-9 Depression Total Score: 13 024 9:21 AM EST documented as of this encounter Care Teams Electrical Unit Rebuilder Relationship Specialty Start Date End Date Ajay Gates MD [address] [place] [phone] PCP - General Family Medicine 12/12/23 Erica Johnson NP [address] [place] [phone] Nurse Practitioner Family Medicine 12/12/23 documented as of this encounter
--- OUTSIDE RECORDS SUMMARY | 2024-11-13 07:08 | XMS_ITS | Encounter Summary ---
Author Organization [facility] Address [address] [place] [address] Care Team Providers Care Bilingual Instructor Name Role Phone Ajay Gates MD Primary Care Provider [phone] Erica Johnson WELDING EQUIPMENT SALES REPRESENTATIVE Unavailable [phone] Encounter Details Date Type Department Care Team (Late st Contact Info) Description 11/05/2024 Bamboo flowsheet [facility] [address] [place] [phone] Wanda Chi, PERFUME AND TOILET WATER MAKER-AUTOMATIC OUTSOLE CUTTER [address] [place] [address] Social History Tobacco Use Types [...] [address] [place] [phone] Wanda Chi APRN-AUTOMATIC OUTSOLE CUTTER [address] [place] [address] 01/08/2025 1:00 PM EDT Office Visit [facility] [address] [place] [address] Malgorzata Holliday NP [address] [place] [address] 01/16/2025 8:45 AM EDT Office Visit [facility] [address] [place] [phone] Martha Ervin MD [address] [place] [address] documented as of this encounter Visit Diagnoses Not on filedocumented in this encounter Additional Health Concerns Assessment Noted Time PHQ-9 Depression Total Score: 13 05/30/ 024 9:21 AM EST documented as of this encounter Care Teams Bilingual Instructor Relationship Specialty Start Date End Date Ajay Gates MD [address] [place] [phone] PCP - General Family Medicine 12/12/23 Erica Johnson NP [address] [place] [address] Nurse Practitioner Family Medicine 12/12/23 documented as of this encounter
--- OUTSIDE RECORDS SUMMARY | 2024-11-13 07:09 | XMS_ITS | Encounter Summary ---
Author Organization [facility] Address [address] [place] [address] Phone Care Team Providers Care Heel Compressor Name Role Phone Roosevelt Clifford DO Primary Care Provider [phone] Shaikh LEONID Rae Primary Care Provider [phone] Jacinto Marcelino DO Unavailable [phone] Encounter Details Date Type Department Care Team (Late st Contact Info) Description 07/30/2021 Orders Only [facility] [address] [place] [address] Conversion, Onbase Social History Tobacco Use Types Packs/Day Years Used Date Smoking Tobacco: Never Assessed Sex and Gender Information Value Date Recorded Sex Assigned at Not on file Legal Sex Male 11:51 AM EST Gender Identity Not on file Sexual Orientation Not on file documented as of this encounter Plan of Treatment Upcoming Encounters Date Type Department Care Team (Late st Contact Info) Description 06/18/2025 10:40 AM EST Office Visit [facility] [address] [place] [address] Jacinto Marcelino DO [address] [place] [address] Scheduled Orders Name Type Priority Associated Diagnoses Orde r Schedule OUTSIDE LAB SCAN Lab Ordered: 07/30/2021 documented as of this encounter Visit Diagnoses Not on filedocumented in this encounter Care Teams Heel Compressor Relationship Specialty Start Date End Date Roosevelt Clifford DO PCP - General 07/09/19 06/06/23 Shaikh Rae MD PCP - General Internal Medicine 06/07/23 Jacinto Marcelino DO [address] [facility] [address], [place] [address] Consulting Physician Cardiology 06/07/23 documented as of this encounter
--- OUTSIDE RECORDS SUMMARY | 2024-11-13 07:09 | XMS_ITS | Clinical Summary ---
Author Organization [facility] Address [address] [place] [address] Phone Care Team Providers Care Adobe Ball Mixer Name Role Phone Shaikh LEONID Rae Primary Care Provider [phone] Jacinto Marcelino DO Unavailable [phone] Allergies Active Allergy Reactions Criticality Noted Date Comments Penicillins Itching,Rash,Swelling Low 05/17/2023 Sulfa (Sulfonamide Antibiotics) Itching,Rash,Swelling Low 05/17/2023 Medications aspirin 81 mg EC tablet Take 1 tablet (81 mg) by mouth once daily. Active glimepiride (Amaryl) 2 mg tablet Take 1 tablet (2 mg) by mouth 2 times a day. Active metFORMIN (Glucophage) 1,000 mg tablet Take 1 tablet (1,000 mg) by mouth 2 times daily (morning and late afternoon). Active pregabalin (Lyrica) 150 mg capsule Take 1 capsule (150 mg) by mouth 3 times a day. Active coenzyme Q-10 200 mg capsule Take 1 capsule (200 mg) by mouth once daily. Active escitalopram (Lexapro) 10 mg tablet Take 1 tablet (10 mg) by mouth once daily. Active cyanocobalamin (Vitamin B-12) 1,000 mcg tablet Take 1 tablet (1,000 mcg) by mouth once daily. 3 Active isosorbide mononitrate ER (Imdur) 30 mg 24 hr tabletIndications:A ngina pectoris, unspecified Take 1 tablet (30 mg) by mouth once daily. 90 tablet 3 5 Active lisinopril 10 mg tabletIndications:H ypertension, unspecified type Take 1 tablet (10 mg) by mouth once daily. 90 tablet 3 5 06/12/19 26 Active metoprolol succinate XL (Toprol-XL) 25 mg 24 hr tabletIndications:A therosclerotic heart disease of [place] coronary artery without angina pectoris Take 1 tablet (25 mg) by mouth once daily. 90 tablet 3 5 06/12/19 26 Active nitroglycerin (Nitrodur) 0.2 mg/hr patchIndications:At herosclerotic heart disease of [place] coronary artery without angina pectoris Place 1 patch on the skin once daily. 30 patch 3 5 06/12/19 26 Active nitroglycerin (Nitrostat) 0.4 mg SL tabletIndications:A ngina pectoris, unspecified Place 1 tablet (0.4 mg) under the tongue every 5 minutes if needed for chest pain. 100 tablet 3 5 Active rosuvastatin (Crestor) 10 mg tabletIndications:M ixed hyperlipidemia Take 1 tablet (10 mg) by mouth once daily. 90 tablet 3 5 06/12/19 26 Active Active Problems Problem Noted Date Diagnosed Date History of PTCA 06/12/2024 COPD (chronic obstructive pulmonary disease) (Mu lti) 06/12/2024 Shortness of breath 06/07/2023 Anxiety 06/07/2023 Obesity (BMI 30-39.9) 06/07/2023 Atherosclerosis of [place] co ronary artery without angina pectoris 05/17/2023 Chest tightness 05/17/2023 Current every day smoker 05/17/2023 Diabetes mellitus (Multi) 05/17/2023 Hyperlipidemia 05/17/2023 Hypertension 05/17/2023 Nonspecific abnormal results of function study 0 05/17/2023 Angina pectoris, unstable (Multi) 05/17/2023 Immunizations Immunization Administration Dates Next Due Flu vaccine (IIV4), preservative free *Check age /dose* 01/11/2023 Pfizer Purple Cap SARS-CoV-2 02/20/2022,07/31/19 21 Family History Medical History Relation Name Comments arteriosclerotic cardiovascular disease Brother arteriosclerotic cardiovascular disease Father arteriosclerotic cardiovascular disease Mother No Known Problems Sister Relation Name Status Comments Brother Father Mother Sister Social History Tobacco Use Types Packs/Day Years Used Date Smoking Tobacco: Every Day Cigarettes Smokeless Tobacco: Never Alcohol Use Standard Drinks/Week Comments Yes 0 (1 standard drink = 0.6 oz pur e alcohol) occasional beer Sex and Gender Information Value Date Recorded Sex Assigned at Not on file Legal Sex Male 11:51 AM EST Gender Identity Not on file Sexual Orientation Not on file Last Filed Vital Signs Vital Sign Reading Time Taken Comments Blood Pressure 110/70 06/12/2024 2:47 PM EST Pulse 72 06/12/2024 2:47 PM EST Temperature - - Respiratory Rate - - Oxygen Saturation - - Inhaled Oxygen Concentration - - Weight 88.5 kg (195 lb) 06/12/2024 2:47 PM EST Height 162.6 cm (5' 4 ) 06/12/2024 2:47 PM EST Body Mass Index 33.47 06/12/2024 2:47 PM EST Plan of Treatment Upcoming Encounters Date Type Department Care Team (Late st Contact Info) Description 06/18/2025 10:40 AM EST Office Visit [facility] [address] [facility] [address] [place] [address] Jacinto Marcelino DO [address] [facility] [address], [address] [place] [address] Health Maintenance Due Date Last Done Comments CT Colonography 1959 Colonoscopy 1960 Colorectal Cancer Screening 1960 Creatinine Level 1960 Diabetes: Hemoglobin A1C 1959 Diabetes: Urine Protein Screening 1960 Echocardiogram 1960 FIT-DNA (Cologuard) 1959 FIT 1959 HIV Screening 1960 Lipid Panel 1959 Potassium Level 1959 Sigmoidoscopy 1959 Yearly Adult Physical 1960 MMR Vaccines (1 of 1 - Standard series) 12/06/1960 Diabetes: Retinopathy Screening 12/06/1969 Hepatitis C Screening 12/06/1977 Pneumococcal Vaccine (1 of 2 - PCV) 12/06/1978 DTaP/Tdap/Td Vaccines (1 - Tdap) 12/06/1981 Zoster Vaccines (1 of 2) 12/06/2009 RSV High Risk: (Elderly (60+) or Population) (1 - Risk 60-74 years 1-dose series) 2019 COVID-19 Vaccine ( season) 2024 02/20/2022, 02/20/2022, 07/30/2020 Abdominal Aortic Aneurysm (AAA) Screening 12/06/2024 Influenza Vaccine (#1) 2025 , 01/11/2023, 02/20/2022, Additional history exists HIB Vaccines Aged Out No longer eligi ble based on patient's age to complete this topic HPV Vaccines (No Doses Required) Completed Hepatitis A Vaccines Aged Out No long er eligible based on patient's age to complete this topic Hepatitis B Vaccines Aged Out No long er eligible based on patient's age to complete this topic IPV Vaccines Aged Out No longer eligi ble based on patient's age to complete this topic Meningococcal Vaccine Aged Out No jessica joie eligible based on patient's age to complete this topic Rotavirus Vaccines Aged Out No longer eligible based on patient's age to complete this [place] [address] [facility] AGED BLIND AND DISABLED [employer] [facility] AGED BLIND AND DISABLED Care Teams Adobe Ball Mixer Relationship Specialty Start Date End Date Shaikh Rae MD PCP - General Internal Medicine 06/07/23 Jacinto Marcelino DO [address] [facility] [address], [address] [address] Consulting Physician Cardiology 06/07/23
--- OUTSIDE RECORDS SUMMARY | 2024-11-13 07:09 | XMS_ITS | Clinical Summary ---
Author Organization [facility] Address [id number] [place] [address] Care Team Providers Care Medical Massage Therapist Name Role Phone Roosevelt Clifford DO Primary Care Provider [phone] Allergies Active Allergy Reactions Criticality Noted Date Comments Penicillins 03/11/2017 Medications metFORMIN (GLUCOPHAGE) 1000 mg tablet Take 1,000 mg by mouth 2 (two) times a day with meals. Active lisinopril (PRINIVIL,ZESTRI L) 10 mg tablet Take 10 mg by mouth daily. Active gabapentin (NEURONTIN) 300 mg capsule Take 300 mg by mouth 3 (three) times a day. Active aspirin 81 mg Take 81 mg by mouth daily. Active Social History Tobacco Use Types Packs/Day Years Used Date Smoking Tobacco: Every Day Cigarettes Smokeless Tobacco: Never Alcohol Use Standard Drinks/Week Comments Yes 0 (1 standard drink = 0.6 oz pur e alcohol) few times a year Childcare Answer Date Recorded Childcare Unknown 10/18/2018 Employment Answer Date Recorded Employment Unknown 10/18/2018 Purpose - Life Answer Date Recorded Purpose and direction in life Unknown Sex and Gender Information Value Date Recorded Sex Assigned at Not on file Legal Sex Male 11:40 AM EDT Gender Identity Not on file Sexual Orientation Not on file Last Filed Vital Signs Vital Sign Reading Time Taken Comments Blood Pressure 121/77 03/11/2017 4:35 AM EDT Pulse 68 03/11/2017 4:35 AM EDT Temperature 36.4 C (97.6 F) 03/11/2017 4:16 AM EDT Respiratory Rate 16 03/11/2017 4:35 AM EDT Oxygen Saturation 96% 03/11/2017 4:19 AM EDT Inhaled Oxygen Concentration - - Weight 84.7 kg (186 lb 11.7 oz) 03/11/2017 4:16 AM EDT Height 167.6 cm (5' 6 ) 03/11/2017 4:16 AM EDT Body Mass Index 30.14 03/11/2017 4:16 AM EDT Plan of Treatment Health Maintenance Due Date Last Done Comments Depression Screening 1971 Tobacco Screening 1971 Adult BMI Screening 12/06/1977 DTaP,Tdap and Td Vaccines (1 - Tdap) 12/06/1978 Zoster (Shingles) Vaccine (1 of 2) 12/06/2009 Influenza Vaccine 01/07/2025 Medical Devices Not on file Insurance [employer] Care Teams Medical Massage Therapist Relationship Specialty Start Date End Date Roosevelt Clifford DO PCP - General 03/11/17
--- NOTE | 2024-11-13 07:26 | US_ITS ---
The [address] [address] Patient Name: ROXANE BONNER MRN: [id number] date: 1960 Sex: M Assigned Patient Location: US Current Patient Location: US Accession/Order Number: [id number] Exam Date: 11/13/2024 08:21 Report Date: 11/13/2024 08:24 At the request of: SANDRA FELIPE NP Procedure: US right upper quadrant LIMITED RIGHT UPPER QUADRANT ABDOMINAL ULTRASOUND CLINICAL HISTORY: Elevated liver enzymes COMPARISON: None The gallbladder is physiologically distended without shadowing calculi, wall thickening or pericholecystic fluid. No intrahepatic biliary dilatation is evident. The common duct is mildly prominent measuring 6 - 7 mm. No filling defects are identified within the imaged segment. The liver parenchyma shows increased echogenicity suggesting fatty infiltration. No focal intrahepatic masses are seen. There is appropriate hepatopetal flow within the main portal vein. The pancreas shows no significant sonographic abnormality. Cursory evaluation of the right kidney reveals no hydronephrosis or fluid within Henrandez's pouch. A small 11 mm cyst is seen at the midpole. US/US right upper quadrant IMPRESSION: NO GALLBLADDER PATHOLOGY. FATTY LIVER. SLIGHT COMMON DUCT PROMINENCE OF UNKNOWN ETIOLOGY. Impression dictated by: Phyllis Stein M.D. 11/13/2024 8:24 AM Dictation Location: [place] [address] Electronically authenticated by: [id number] Y Date: 11/13/2024 08:24
== END 2024-11-13 07:07 | disposition home or self-care (01) ==
LOC: US 07:06
PROVIDERS: PCP Nurse Practitioner; Visit Provider Nurse Practitioner
DX: R79.89 Other specified abnormal findings of blood chemistry (principal); K76.0 Fatty (change of) liver, not elsewhere classified
CPT/HCPCS: 76705

== ENCOUNTER 2024-12-25 10:06 | Outpatient (OUT) | payer MEDICARE, OTHER, SELFPAY ==
[2024-12-25 11:12] LABS: Alanine Aminotransferase 45 U/L (16-63); Albumin Globulin Ratio 1.1; Albumin Level 3.8 g/dL (3.4-5.0); Alkaline Phosphatase 85 U/L (46-116); Aspartate Amino Transferase 23 U/L (15-37); Globulin 3.6 g/dL; Total Protein 7.4 g/dL (6.4-8.2)
--- OUTSIDE RECORDS SUMMARY | 2024-12-25 12:30 | XMS_ITS | CCD ---
Author Organization [facility] Care Team Providers Care Adjunct Instructor Chemistry Name Role Phone JINNY LOPEZ Unavailable Unavailable BRIDGET MUNOZ Unavailable Unavailable HOUSE, ROO[place]ELT Unavailable Unavailable House, Sr Roosevelt Garcia Primary Care Provider House DO, Sr Roosevelt P Primary Care Provider [phone] HOUSE, SR ROOSEVELT P Primary Care Unavailable [...] DO Roosevelt Primary Care Provider DO Bridget Munoz Attending Provider [phone] DO Tree Marcelino Referring Provider HOUSE, DR [...] Unavailable Denisa, Dr. Roosevelt Barnes Primary Care Unaangus ilsharon Marcelino, Dr. Jacinto Del Angel Attending Tucker Crawley, Dr. Roosevelt Barnes [facility] Care Tucker Hughes, . Glenda Silvia Patel Referring Adelaide Hughes, Ms. Glenda Donjarrett Patel Attending ROOSEVELT Murillo Primary Care Unavailable Butch JAQUEZ, [facility] Primary Care Provider [phone] Jacinto Marcelino DO Unavailable [phone] Kody JAQUEZ, Ajay Primary Care Provider Elizabeth COASTAL AND ESTUARY SPECIALIST, Cris Unavailable JACINTO MARCELINO Attending Unavailable JACINTO MARCELINO Referring Unavailable SHAIKH RAE Primary [facility] Unavailable Elizabeth COASTAL AND ESTUARY SPECIALIST, Cris Unavailable [phone] CRIS JOHNSON Attending Unavailabl e GRANT LOZANO Attending Unavailable GRANT LOZANO Attending Unavailable BROWNGRANT Attending Unavailable GRANT LOZANO Attending Unavailable AICHHOLZMALGORZATA Attending Unavailable KESHAV CHI Attending Unavailable AICHHOLEfrain MALGORZATA Referring Unavailable AICHHOLEfrain MALGORZATA Attending Unavailable GRANT LOZANO Attending Unavailable GRANT LOZANO Attending Unavailable CRIS JOHNSON Attending Unavailabl e BROWNGRANT Attending Unavailable JOHNSON CRIS Referring Unavailabl e JOHNSON, CRIS Attending Unavailabl e JOHNSON, CRIS Attending Unavailabl e Allergies Allergy Classification Reported Allergen(s) Allergy Type Date of Onset Reaction(s) Facility Penicillins (antibiotic) (6 sources) Penicillins Drug Allergy 01-29-20 18 Hives, Itching, Rash [facility] Sulfamethoxazole / Trimethoprim (6 sources) Sulfamethoxazole / Trimethoprim Drug Allergy 08-03-19 19 Other (See Comments) [facility] Work Phone: (5 sources) Penicillins; Translations: [PENICILLINS] Propensity to adverse reactions to drug 01-29-20 18 Hives, Itching, Rash [place], [place] (3 sources) Sulfamethoxazole / Trimethoprim Drug Allergy 08-03-19 19 Other (See Comments) [place], [place] (4 sources) Penicillins; Translations: [Penicillins] Allergy to drug (finding) Itching, Rash, Swelling [facility] [place] [facility] DO Work Phone: (5 sources) Sulfonamides (Antibiotic); Translations: [Sulfa Drugs] Allergy to drug (finding) Itching, Rash, Swelling [facility] Repository (4 sources) Sulfonamides (Antibiotic); Translations: [Sulfa (Sulfonamide Antibiotics)] Allergy to substance 08-26-19 23 Itching, Rash, Swelling [facility] (1 source) Penicillins Drug allergy (disorder) 08-28-19 23 [facility] Repository (1 source) Penicillin; Translations: [penicillin] Drug Allergy [facility] Repository (1 source) Penicillins Drug Allergy 05-17-19 24 Itching, Rash, Swelling [facility] (20 sources) Penicillins Propensity to adverse reactions 05-24-19 24 [facility] (20 sources) Sulfonamides (Antibiotic) Propensity to adverse reactions 05-24-19 24 [facility] Medications Current Medications Medication Drug Class(es) Dates Sig (Normalized) Sig (Original) aspirin 81 mg delayed release oral tablet (20 sources) Platelet Aggregation Inhibitor, Nonsteroidal Anti-inflammatory Drug Start: 08-25-2022 take 81 mg by mouth once daily Aspirin Active 81 MG PO Daily August 25, 2022 12:00am ASPIRIN 81 MG ch ewable tablet Chew 81 mg Daily Active atorvastatin 20 mg oral tablet (7 sources) HMG-CoA Reductase Inhibitor take 1 tablet by mouth once daily atorvastatin (LIPITOR) 20 MG tablet Take 20 mg by mouth daily 0 Active Blood Pressure Monitoring (Blood Pressure Cuff) mis (20 sources) Start: Blood Pressure Monitoring (Blood Pressure Cuff) [facility] Indications: Primary hypertension 1 each in the morning and 1 each before bedtime. 1 each 02/13/2024 Active Start: 02-13-2024 Blood Pressure Monitoring (Blood Pressure Cuff) [facility] Indications: Primary hypertension (CMS/HCC) 1 each in the morning and 1 each before bedtime. 1 each 02/13/2024 Active ubidecarenone 200 mg oral capsule (14 sources) take 1 capsule by mo uth once daily coenzyme Q-10 200 mg capsule Take 1 capsule (200 mg) by mouth once daily. 0 Active Coenzyme Q10 (CO Q 10) 10 MG CAPS Take by mouth daily 0 Active Continuous Glucose Pneudraulic Systems Mechanic (Dexcom G7 Pneudraulic Systems Mechanic) device (20 sources) Start: 06-25-2024 Continuous Glu cose Pneudraulic Systems Mechanic (Dexcom G7 Pneudraulic Systems Mechanic) device Indications: Type 2 diabetes mellitus with diabetic polyneuropathy (HCC) 1 each continuously 1 each 06/25/2024 Active Start: 06-25-2024 Continuous Glu cose Pneudraulic Systems Mechanic (Dexcom G7 Pneudraulic Systems Mechanic) device Indications: Type 2 diabetes mellitus with diabetic polyneuropathy (CMS/HCC) 1 each continuously 1 each 06/25/2024 Active Continuous Glucose Sensor (Dexcom G7 Sensor) misc (20 sources) Start: 12-18-2024 End: 01-17-2025 Continuous Glucose Sensor (D excom G7 Sensor) misc Indications: Type 2 diabetes mellitus with diabetic polyneuropathy (HCC) 1 each Every 10 (ten) days Change sensor every 10 days1 each Daily Change sensor every 10 days 3 each 11 12/18/2024 01/17/2025 Active Start: 11-26-2024 End: 12-17-2024 Continuous Glucose Sensor (D excom G7 Sensor) misc Indications: Type 2 diabetes mellitus with diabetic polyneuropathy (HCC) 1 each Daily Change sensor every 10 days 3 each 11/26/2024 12/17/2024 Discontinued (Reorder) Start: 11-26-2024 Continuous Glu cose Sensor (Dexcom G7 Sensor) misc Indications: Type 2 diabetes mellitus with diabetic polyneuropathy (HCC) 1 each Daily Change sensor every 10 days 3 each 11/26/2024 Active Start: 06-25-2024 End: 11-26-2024 Continuous Glucose Sensor (D excom G7 Sensor) misc Indications: Type 2 diabetes mellitus with diabetic polyneuropathy (HCC) 1 each continuously 3 each 11 06/25/2024 11/26/2024 Discontinued (Reorder) Start: 06-25-2024 Continuous Glu cose Sensor (Dexcom G7 Sensor) misc Indications: Type 2 diabetes mellitus with diabetic polyneuropathy (HCC) 1 each continuously 3 each 11 06/25/2024 Active Start: 06-25-2024 Continuous Glu cose Sensor (Dexcom G7 Sensor) [facility] Indications: Type 2 diabetes mellitus with diabetic polyneuropathy (CMS/HCC) 1 each continuously 3 each 11 06/25/2024 Active 0.5 ml dulaglutide 1.5 mg/ml auto-injector (20 sources) GLP-1 Receptor Agonist Start: 10-02-2024 End: 01-15-2025 Dulaglutide (Trulicity) 0.75 MG/0.5ML solution auto-injector Indications: Type 2 diabetes mellitus with stage 3a chronic kidney disease, without long-term current use of insulin (HCC) Inject 0.75 mg under the skin every 7 (seven) days for 28 days 2 mL 1 12/18/2024 01/15/2025 Active empagliflozin 25 mg oral tablet (20 sources) Sodium-Glucose Cotransporter 2 Inhibitor Start: 10-05-2023 End: 03-31-2025 take 1 tablet by mouth once daily empagliflozin (Jardiance) 25 MG Indications: Type 2 diabetes mellitus with diabetic polyneuropathy (HCC) Take 1 tablet (25 mg) by mouth Daily 90 tablet 1 10/02/2024 03/31/2025 Active Start: 08-25-2022 take 1 tablet by mikey th once daily Empagliflozin (Jardiance) 25 mg Tablet Active 25 MG PO Daily August 25, 2022 12:00am escitalopram 20 mg oral tablet (20 sources) Serotonin Reuptake Inhibitor Start: 01-05-2024 End: 12-31-2024 take 1 tablet by mouth once daily escitalopram (Lexapro) 20 MG tablet Indications: Generalized anxiety disorder Take 1 tablet (20 [...] mg) by mouth once daily. 0 Active fluocinonide 0.5 mg/ml topical cream (15 sources) Corticosteroid Start: 11-05-2024 fluocinonide (Lidex) 0.05 % cream Indications: Psoriasis vulgaris Apply thin layer (2 g) to the arms and legs up to twice a day when flared, do not use one the face, groin, or underarms, 30 day supply 60 g 11 11/05/2024 Active gabapentin 600 mg oral tablet (9 [...] MG tablet Indications: BREONNA (generalized anxiety disorder) Take 1 tablet [...] Angiotensin Converting Enzyme Inhibitor Start: 10-05-2023 End: 05-17-2025 lisinopril 10 MG tablet Indications: Type 2 diabetes mellitus with diabetic polyneuropathy (HCC) , Type 2 diabetes mellitus with stage 3a chronic kidney disease, without long-term current use of insulin ([facility]) , Primary hypertension Take 1 tablet (10 mg) by [...] 2 diabetes mellitus with diabetic polyneuropathy (HCC) , Type 2 diabetes mellitus with stage 3a chronic kidney disease, without long-term current use of insulin ([facility]) Take 1 tablet (1,000 mg) by mouth in the morning and 1 tablet (1,000 mg) in the evening. Take with meals. 180 tablet 1 10/02/2024 03/31/2025 Active Start: 08-25-2022 take 1000 mg by mout h twice daily Metformin Active 1000 MG PO Twice daily August 25, 2022 12:00am Methylcobalamin (Z94-OXYTRY PO) (20 sources) take 1000 mg by mouth once daily Methylcobalamin (M01-TLPXPR PO) Take 1,000 mg by mouth 1 [...] Do not crush or chew. 90 capsule 11/26/2024 02/24/2025 Active pregabalin 150 mg oral capsule (20 [...] (Crestor) 20 MG tablet Indications: Hyperlipidemia, unspecified Take 1 tablet (20 mg) [...] / neomycin 3.5 mg/ml / polymyxin b 23168 unt/ml ophthalmic suspension (2 sources) Aminoglycoside Antibacterial, Polymyxin-class Antibacterial, Corticosteroid Start: 10-20-2023 End: 01-05-2024 take 1 drop(s) into the eye(s) four times daily neomycin-polymyxi n-dexAMETHasone (Maxitrol) 3.5-03444-9.1 ophthalmic suspension instill 1 DROP IN THE [...] Active Problems Problem Classification Problem Date Documented Da te Episodic/Chronic Acquired foot deformities (6 sources) Toe joint rigid; Translations: [Hallux rigidus, left foot] 01-26-2024 Chronic Acquired foot deformities (6 sources) Toe joint rigid; Translations: [Hallux rigidus, right foot] 01-26-2024 Chronic Acute and unspecified renal failure (1 source) Acute injury of kidney; Translations: [Acute kidney failure, unspecified] Episodic Anxiety disorders (20 sources) Anxiety; Translations: [Anxiety disorder, unspecified] Onset: 4 Resolved: 5 06-07-2023 Chronic Chronic kidney disease (20 sources) Chronic kidney disease stage 3A ; Translations: [Stage 3a chronic kidney disease (HCC)] Chronic Chronic obstructive pulmonary disease and bronchiectasis (20 sources) Chronic obstructive pulmonary disease, unspecified; Translations: [Chronic obstructive lung disease] Onset: 5 Chronic Congestive heart failure; nonhypertensive (20 sources) Chronic heart failure co-occurrent with normal ejection fraction; Translations: [Chronic diastolic (congestive) heart failure] Onset: 4 05-30-2023 Chronic Coronary atherosclerosis and other heart disease (20 sources) Atherosclerotic heart disease 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 pectoris; Translations: [Coronary atherosclerosis] Onset: 8 06-07-2023 Chronic Coronary atherosclerosis and other heart disease (2 sources) Coronary angioplasty status; Translations: [Coronary angioplasty status] Onset: 5 Episodic Diabetes mellitus with complications (20 sources) Type 2 diabetes mellitus with diabetic neuropathy, unspecified; Translations: [Type 2 diabetes mellitus] Onset: 2 Chronic Diabetes mellitus with complications (1 source) Diabetes mellitus with complications Onset: 8 Diabetes mellitus without complication (13 sources) Diabetes mellitus; Translations: [Diabetes mellitus without mention of complication, type II or unspecified type, not stated as uncontrolled] Onset: 2 Chronic Disorders of lipid metabolism (20 sources) Hyperlipidemia; Translations: [Other and unspecified hyperlipidemia] Onset: 3 05-17-2023 Chronic Esophageal disorders (20 sources) Gastroesophageal reflux disease without esophagitis; Translations: [Gastro-esophageal reflux disease without esophagitis] Onset: 4 02-13-2024 Chronic Essential hypertension (20 sources) Hypertensive disorder; Translations: [Unspecified essential hypertension] Onset: 3 05-17-2023 Chronic Essential hypertension (1 source) Essential hypertension Onset: 8 Genitourinary symptoms and ill-defined conditions (1 source) Dysuria; Translations: [Dysuria] Episodic Hyperplasia of prostate (1 source) Benign prostatic hyperplasia without lower urinary tract symptoms; Translations: [BENIGN PROSTATIC HYPRPLASIA WO LUTS] Onset: 2 Chronic Mycoses (6 sources) Onychomycosis; Translations: [Tinea unguium] 01-26-2024 Episodic Neoplasms of unspecified nature or uncertain behavior (4 sources) Neoplasm of uncertain behavior of skin; Translations: [Neoplasm of uncertain behavior of skin] 08-06-2024 Episodic Nonspecific chest pain (5 sources) Tight chest; Translations: [Other chest pain] Onset: 4 05-17-2023 Episodic Open wounds of extremities (20 sources) Open wound of upper limb; Translations: [Unspecified open wound of unspecified upper arm, initial encounter] Onset: 5 10-17-2024 Episodic Other aftercare (2 sources) USP (current) use of insulin; Translations: [truck terminal manager (current) use of insulin (Multi)] Onset: 4 Episodic Other connective tissue disease (12 sources) Pain in left foot; Translations: [Pain in left foot] 08-06-2024 Episodic Other connective tissue disease (12 sources) Pain in right foot; Translations: [Pain in right foot] 08-06-2024 Episodic Other gastrointestinal disorders (17 sources) Esophageal dysphagia; Translations: [Other dysphagia] Onset: 5 11-05-2024 Episodic Other inflammatory condition of skin (2 sources) Psoriasis vulgaris; Translations: [Psoriasis vulgaris] 11-05-2024 Chronic Other lower respiratory disease (2 sources) Dyspnea; Translations: [Shortness of breath] Onset: 4 06-07-2023 Episodic Other nutritional; endocrine; and metabolic disorders (6 sources) Obesity; Translations: [Obesity, unspecified] Chronic Other nutritional; endocrine; and metabolic disorders (20 sources) Body mass index 30+ - obesity; Translations: [Obesity, unspecified] Onset: 4 06-07-2023 Chronic Other nutritional; endocrine; and metabolic disorders (2 sources) Obesity, unspecified; Translations: [Obesity, unspecified] Onset: 4 Chronic Other screening for suspected conditions (not mental disorders or infectious disease) (20 sources) Abnormal results of function studies of other organs and systems; Translations: [Nonspecific abnormal results of function study] Onset: 4 05-17-2023 Episodic Residual codes; unclassified (1 source) Other specified postprocedural states; Translations: [Other specified postprocedural states] Onset: 3 Episodic Substance-related disorders (20 sources) Smokes tobacco daily; Translations: [Tobacco use disorder] Onset: 3 Resolved: 5 06-07-2023 Chronic Superficial injury; contusion (4 sources) Contusion of left foot; Translations: [Contusion of left foot, initial encounter] 09-04-2024 Episodic Unclassified (1 source) Family hx of ischem heart dis and oth dis of the circ sys / Z82.49(ICD-9) Onset: 8 Unclassified (2 sources) Athscl heart disease of [place] coronary artery w/o ang pctrs / I25.10(ICD-9) Onset: 8 Unclassified (1 source) Peripheral vascular angioplasty status / Z98.62(ICD-9) Onset: 8 Unclassified (1 source) Pure hypercholesterolemia, unspecified / E78.00(ICD-9) Onset: 8 Unclassified (1 source) USP (current) use of oral hypoglycemic drugs / Z79.84(ICD-9) Onset: 8 Unclassified (1 source) truck terminal manager (current) use of aspirin / Z79.82(ICD-9) Onset: 8 Unclassified (1 source) Nicotine dependence, unspecified, uncomplicated / F17.200(ICD-9) Onset: 8 Unclassified (1 source) Atherosclerotic heart disease of [place] coronary artery with unspecified angina pectoris; Translations: [Atherosclerotic heart disease of [place] coronary artery with unspecified angina pectoris] Onset: 3 Unclassified (1 source) Encounter for preprocedural laboratory examination; Translations: [Encounter for preprocedural laboratory examination] Onset: 3 Unclassified (1 source) I25.10 - Atherosclerotic heart disease 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 pectoris; Translations: [I25.10 - Atherosclerotic heart disease 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 pectoris] Onset: 2 Viral infection (12 sources) Verruca plantaris; Translations: [Plantar wart] 08-06-2024 [...] Test Name Value Interpretation Reference Range Facility [facility] LIVER PANELon Albumin [Mass/Vol] 3.8 g/dL 3.4 - 5.0 g/dL [facility] ALBUMIN GLOBULIN RATIO 1.1 NO [facility] ALP [Catalytic activity/Vol] 85 U/L 46 - 116 U/L [facility] ALT [Catalytic activity/Vol] 45 U/L 16 - 63 U/L [facility] AST [Catalytic activity/Vol] 23 U/L 15 - 37 U/L [facility] Bilirubin [Mass/Vol] 0.3 mg/dL 0.2 - 1 .0 mg/dL [facility] Bilirubin.indirect [Mass/Vol] 0.1 mg/dL 0.0 - 0.2 mg/dL [facility] Globulin (S) [Mass/Vol] 3.6 g/dL [facility] Protein [Mass/Vol] 7.4 g/dL 6.4 - 8.2 g/dL [facility] US RIGHT UPPER QUADRANTon The [address] [address] Ultrasound Report Signed Patient: ROXANE BONNER MR#: [id number] : 1960 Acct:[id number] Age/Sex: 63 / M ADM Date: 11/13/24 Loc: US Attending Dr: Malgorzata Holliday NP Ordering Physician: Malgorzata Holliday NP Date of Service: 11/13/24 Procedure(s): US right upper quadrant Accession Number(s): [id number] cc: Malgorzata Holliday NP [address] [address] Patient Name: ROXANE BONNER MRN: [id number] date: 1960 Sex: M Assigned Patient Location: US Current Patient Location: US Accession/Order Number: [id number] Exam Date: 11/13/2024 08:21 Report Date: 11/13/2024 08:24 At the request of: MALGORZATA HOLLIDAY NP Procedure: US right upper quadrant LIMITED RIGHT UPPER QUADRANT ABDOMINAL ULTRASOUND CLINICAL HISTORY: Elevated liver enzymes COMPARISON: None The gallbladder is physiologically distended without shadowing calculi, wall thickening or pericholecystic fluid. No intrahepatic biliary dilatation is evident. The common duct is mildly prominent measuring 6 - 7 mm. No filling defects are identified within the imaged segment. The liver parenchyma shows increased echogenicity suggesting fatty infiltration. No focal intrahepatic masses are seen. There is appropriate hepatopetal flow within the main portal vein. The pancreas shows no significant sonographic abnormality. Cursory evaluation of the right kidney reveals no hydronephrosis or fluid within Hernandez's pouch. A small 11 mm cyst is seen at the midpole. US/US right upper quadrant IMPRESSION: NO GALLBLADDER PATHOLOGY. FATTY LIVER. SLIGHT COMMON DUCT PROMINENCE OF UNKNOWN ETIOLOGY. Impression dictated by: Phyllis Stein M.D. 11/13/2024 8:24 AM Dictation Location: [place] [address] Electronically authenticated by: [id number] Y Date: 11/13/2024 08:24 Dictated By: Phyllis Stein M.D. Signed By: 11/13/24826 DD/ 0824 TD/TT: [place] Closer: [facility] Radiology, Kevin sparks MD - 11/13/2024 The [place] [id number] Ultrasound Report Signed Patient: ROXANE BONNER MR#: [id number] : 1960 Acct:[id number] Age/Sex: 63 / M ADM Date: 11/13/24 Loc: US Attending Dr: Malgorzata Holliday NP Ordering Physician: Malgorzata Holliday NP Date of Service: 11/13/24 Procedure(s): US right upper quadrant Accession Number(s): [id number] cc: Malgorzata Holliday NP [place] [id number] Patient Name: ROXANE BONNER MRN: [facility]:[id number] date: 1960 Sex: M Assigned Patient Location: US Current Patient Location: US Accession/Order Number: [id number] Exam Date: 11/13/2024 08:21 Report Date: 11/13/2024 08:24 At the request of: MALGORZATA HOLLIDAY NP Procedure: US right upper quadrant LIMITED RIGHT UPPER QUADRANT ABDOMINAL ULTRASOUND CLINICAL HISTORY: Elevated liver enzymes COMPARISON: None The gallbladder is physiologically distended without shadowing calculi, wall thickening or pericholecystic fluid. No intrahepatic biliary dilatation is evident. The common duct is mildly prominent measuring 6 - 7 mm. No filling defects are identified within the imaged segment. The liver parenchyma shows increased echogenicity suggesting fatty infiltration. No focal intrahepatic masses are seen. There is appropriate hepatopetal flow within the main portal vein. The pancreas shows no significant sonographic abnormality. Cursory evaluation of the right kidney reveals no hydronephrosis or fluid within Hernandez's pouch. A small 11 mm cyst is seen at the midpole. US/US right upper quadrant IMPRESSION: NO GALLBLADDER PATHOLOGY. FATTY LIVER. SLIGHT COMMON DUCT PROMINENCE OF UNKNOWN ETIOLOGY. Impression dictated by: Phyllis Stein M.D. 11/13/2024 8:24 AM Dictation Location: [place] [address] Electronically authenticated by: [id number] Y Date: 11/13/2024 08:24 Dictated By: Phyllis Stein M.D. Signed By: 11/13/24826 DD/ 3 TD/TT: [place] Closer: [facility] Radiology Study observation (narrative) [facility] US RIGHT UPPER QUADRANTOrder ed By: Radiologist Radiology on 11-13-2024 [facility] Work Phone: No Panel Informationon 11-05 Type of biopsy: tangential Informed consent: discussed [...] taken Amount of lidocaine used: 3.0 cc [facility] ALL CBC WITH AUTO DIFFon BASOPHILS ABSOLUTE AUTO 0.1 [facility] Basophils/100 WBC (Bld) 0.9 % 0.2 - 2.0 % [facility] Eosinophils/100 WBC (Bld) 5.6 % 0.9 - 7.0 % [facility] Erythrocyte distribution width (RBC) [Ratio] 14.2 % 11.0 - 15.0 % [facility] Hematocrit (Bld) [Volume fraction] 41.6 % Low 42.0 - 54.0 % [facility] Hemoglobin (Bld) [Mass/Vol] 13.9 g/dL Low 14.0 - 18.0 g/dL [facility] IMMATURE GRANULOCYTES ABS AUTO 0.09 High [facility] Immature granulocytes/100 WBC (Bld) 0.8 % High 0.0 - 0.5 % [facility] Interpretation and review of laboratory results Abnormal [facility] LYMPHOCYTES ABSOLUTE AUTO 3.6 [facility] Lymphocytes/100 WBC (Bld) 33.9 % 20.5 - 60.0 % [facility] MCH (RBC) [Entitic mass] 30.6 pg 25.9 - 34.0 pg [facility] MCHC (RBC) [Mass/Vol] 33.4 g/dL 29.9 - 35.2 g/dL [facility] MCV (RBC) [Entitic vol] 91.6 fL 80.0 - 94.0 fL [facility] MONOCYTES ABSOLUTE AUTO 1 High [facility] Monocytes/100 WBC (Bld) 9.2 % 1.7 - 12.0 % [facility] NEUTROPHILS ABSOLUTE AUTO 5.3 [facility] Neutrophils/100 WBC (Bld) 49.6 % 43.0 - 75.0 % [facility] Platelet mean volume (Bld) [Entitic vol] 8.9 fL Low 9.5 - 13.5 fL [facility] TBH EO # 0.6 [facility] TB PLT [address] [facility] RBC 4.54 Low [facility] WBC 10.7 [facility] HbA1c (Bld) [Mass fraction]o n 10-02-2024 Interpretation and review of laboratory results Abnormal [facility] Laboratory - Hematology and Cell countson 10-02-2024 HbA1c (Bld) [Mass fraction] 8.5 % [facility] HbA1c (Bld) [Mass fraction]o n 03-26-2024 Interpretation and review of laboratory results Abnormal [facility] Laboratory - Hematology and Cell countson 03-26-2024 HbA1c (Bld) [Mass fraction] 8.1 % [facility] Tobacco Screening.on 023 Adult depression screening assessment No -[facility] [employer] DO Work Phone: Tobacco use status [facility]PH[facility] a) Yes [facility] [employer] [address] DO Work Phone: Tobacco Screening. Yes [place] [facility] DO Work Phone: Activated partial thrombopla stin time (aPTT) in platelet poor plasma by coagulation aOrdered By: Tree Marcelino on 08-25-2022 aPTT Coag (PPP) [Time] 32.0 s 25.1-36.5 [facility] Basophils Auto (Bld) [#/Vol] Ordered By: Tree Marcelino on 08-25-2022 Basophils (Bld) [#/Vol] 0.1 10*3/uL 0.0-0.2 [facility] Basophils/100 WBC Auto (Bld) Ordered By: Tree Marcelino on 08-25-2022 Basophils/100 WBC (Bld) 1.0 % . [facility] Blood Urea Nitrogenon 2022 Urea nitrogen [Mass/Vol] 20 mg/dL Normal 7-25 [facility] Comment on above: Performed By: #### C BC, PP, LYTES, BUN, CREAT, LIPID #### [address] Carbon dioxide, total [Moles /volume] in Serum or PlasmaOrdered By: Tree Marcelino on 08-25-2022 CO2 [Moles/Vol] 25.8 mmol/L 21.0-31.0 [facility] Chloride [Moles/volume] in S lubna or PlasmaOrdered By: Tree Marcelino on 08-25-2022 Chloride [Moles/Vol] 106 mmol/L 98-107 [facility] Cholesterol [Mass/volume] in Serum or PlasmaOrdered By: Tree Marcelino on 08-25-2022 Cholesterol [Mass/Vol] 101 mg/dL 140-200 [facility] Comment on above: Chol less than 200 m g/dl low riskChol 201-239 mg/dl borderline riskChol 240 mg/dl and greater high risk Cholesterol in LDL Calc [Mas s/Vol]Ordered By: Tere Marcelino on 08-25-2022 Cholesterol in LDL [Mass/Vol] 35 mg/dL 0-100 [facility] Comment on above: LDL ATP III CLASSIFI CATIONLDL less than 100 mg/dL OptimalLDL 100-129 mg/dL Near or above optimalLDL 130-159 mg/dL Borderline highLDL 160-189 mg/dL HighLDL greater than 189 mg/dL Very high Cholesterol in VLDL Calc [Ma ss/Vol]Ordered By: Tree Marcelino on 08-25-2022 Cholesterol in VLDL [Mass/Vol] 35 mg/dL [facility] Coagulation Profileon 2022 aPTT Coag (Bld) [Time] 32.0 s Normal 25.1-36.5 [facility] Comment on above: Result Comment: PERF ORMED BY: [place] [address] PATHOLOGIST [employer]BURRING [employer] TOOLING MACHINE OPERATOR MAX RAMOS M.D. Performed By: #### C BC, PP, LYTES, BUN, CREAT, LIPID #### [address] INR Coag (PPP) [Relative time] 0.9 {INR} Normal [facility] Comment on above: Result Comment: INR [...] BC, PP, LYTES, BUN, CREAT, LIPID #### [facility] [address] [place] [address] PT Coag (PPP) [Time] 10.9 s Normal 9.0-12.9 [facility] Comment on above: Performed By: #### C BC, PP, LYTES, BUN, CREAT, LIPID #### [facility] [address] [place] [address] Complete Blood Count Auto Di ffon 08-25-2022 Basophils (Bld) [#/Vol] 0.1 10*3/uL Normal 0.0-0.2 [facility] Comment on above: Result Comment: PERF ORMED BY: [place] [address] PATHOLOGIST [employer]RING [employer] TOOLING MACHINE OPERATOR MAX RAMOS M.D. Performed By: #### C BC, PP, LYTES, BUN, CREAT, LIPID #### [place] [address] [place] Basophils/100 WBC (Bld) 1.0 % Normal . [facility] Comment on above: Performed By: #### C BC, PP, LYTES, BUN, CREAT, LIPID #### [address] Eosinophils (Bld) [#/Vol] 0.5 10*3/uL High 0.0-0.45 [facility] Comment on above: Performed By: #### C BC, PP, LYTES, BUN, CREAT, LIPID #### [address] Eosinophils/100 WBC (Bld) 6.3 % Normal . [facility] Comment on above: Performed By: #### C BC, PP, LYTES, BUN, CREAT, LIPID #### [address] Erythrocyte distribution width (RBC) [Ratio] 13.9 % Normal 12.0-14.8 [facility] Comment on above: Performed By: #### C BC, PP, LYTES, BUN, CREAT, LIPID #### [address] Hematocrit (Bld) [Volume fraction] 40.8 % Normal 38.8-50.0 [facility] Comment on above: Performed By: #### C BC, PP, LYTES, BUN, CREAT, LIPID #### [address] Hemoglobin (Bld) [Mass/Vol] 13.8 g/dL Normal 13.0-17.0 [facility] Comment on above: Performed By: #### C BC, PP, LYTES, BUN, CREAT, LIPID #### [address] Lymphocytes (Bld) [#/Vol] 3.4 10*3/uL Normal 1.00-4.8 [facility] Comment on above: Performed By: #### C BC, PP, LYTES, BUN, CREAT, LIPID #### [address] [place] [address] [place] Lymphocytes/100 WBC (Bld) 42.2 % Normal . [facility] Comment on above: Performed By: #### C BC, PP, LYTES, BUN, CREAT, LIPID #### [address] MCH (RBC) [Entitic mass] 32.2 pg Normal 27.5-35.2 [facility] Comment on above: Performed By: #### C BC, PP, LYTES, BUN, CREAT, LIPID #### [address] MCV (RBC) [Entitic vol] 95.4 fL Normal 83.5-101 [facility] Comment on above: Performed By: #### C BC, PP, LYTES, BUN, CREAT, LIPID #### [address] Mean Corpuscular HGB Conc 33.7 g/dL Normal 32.5-35.6 [facility] Comment on above: Performed By: #### C BC, PP, LYTES, BUN, CREAT, LIPID #### [address] Monocytes (Bld) [#/Vol] 0.7 10*3/uL Normal 0.0-0.8 [facility] Comment on above: Performed By: #### C BC, PP, LYTES, BUN, CREAT, LIPID #### [address] Monocytes/100 WBC (Bld) 8.4 % Normal . [facility] Comment on above: Performed By: #### C BC, PP, LYTES, BUN, CREAT, LIPID #### [address] Neutrophils (Bld) [#/Vol] 3.4 10*3/uL Normal 1.8-7.7 [facility] Comment on above: Performed By: #### C BC, PP, LYTES, BUN, CREAT, LIPID #### [address] [address] [place] Neutrophils/100 WBC (Bld) 42.1 % Normal . [facility] Comment on above: Performed By: #### C BC, PP, LYTES, BUN, CREAT, LIPID #### [address] NRBC% 0.1 /100{WBC} Normal 0-0.5 [facility] Comment on above: Performed By: #### C BC, PP, LYTES, BUN, CREAT, LIPID #### [address] Platelet mean volume (Bld) [Entitic vol] 7.9 fL Normal 6.6-10.1 [facility] Comment on above: Performed By: #### C BC, PP, LYTES, BUN, CREAT, LIPID #### [address] Platelets (Bld) [#/Vol] 206 10*3/uL Normal 150-450 [facility] Comment on above: Performed By: #### C BC, PP, LYTES, BUN, CREAT, LIPID #### [address] RBC (Bld) [#/Vol] 4.28 10*6/uL Normal 3.90-5.[address] [facility] Comment on above: Performed By: #### C BC, PP, LYTES, BUN, CREAT, LIPID #### [address] WBC (Bld) [#/Vol] 8.2 10*3/uL Normal 4.1-10.5 [facility] Comment on above: Performed By: #### C BC, PP, LYTES, BUN, CREAT, LIPID #### [address] Creatinineon 08-25-2022 Creatinine [Mass/Vol] 1.32 mg/dL High 0.70-1.30 [facility] Comment on above: Performed By: #### C BC, PP, LYTES, BUN, CREAT, LIPID #### [facility] [address] [place] [address] [place] GFR/1.73 sq M.predicted MDRD (S/P/Bld) [Vol rate/Area] mL/min/{1.73_m2} [facility] Comment on above: Performed By: #### C BC, PP, LYTES, BUN, CREAT, LIPID #### [facility] [address] Creatinine [Mass/volume] in Serum or PlasmaOrdered By: Tree Marcelino on 08-25-2022 Creatinine [Mass/Vol] 1.32 mg/dL 0.70-1.30 [facility] ECG 12 lead ECGon 08-25-2022 ECG 12 lead ECG [facility] [place] [address] [place] [address] Electrocardiograph Report Signed Patient: Roxane Bonner MR#: [id number] : 1960 Acct:[id number] Age/Sex: 61 / M ADM Date: 08/25/22 Loc: Room: Type: [facility] Attending Dr: Tree Marcelino DO Ordering Provider: [...] By Jones Haynes MD 0 08/25/22 0848 [facility] Electrolyteson 08-25-2022 Anion gap [Moles/Vol] 12.8 mmol/L Normal 6.0-15.0 [facility] Comment on above: Performed By: #### C BC, PP, LYTES, BUN, CREAT, LIPID #### [facility] [address] Chloride [Moles/Vol] 106 mmol/L Normal 98-107 [facility] Comment on above: Performed By: #### C BC, PP, LYTES, BUN, CREAT, LIPID #### [facility] [place] [address] CO2 [Moles/Vol] 25.8 mmol/L Normal 21.0-31.0 [facility] Comment on above: Performed By: #### C BC, PP, LYTES, BUN, CREAT, LIPID #### [facility] [place] [address] Potassium [Moles/Vol] 4.6 mmol/L Normal 3.5-5.1 [facility] Comment on above: Performed By: #### C BC, PP, LYTES, BUN, CREAT, LIPID #### [facility] [place] [address] Sodium [Moles/Vol] 140 mmol/L Normal 136-145 [facility] Comment on above: Performed By: #### C BC, PP, LYTES, BUN, CREAT, LIPID #### [address] Eosinophils Auto (Bld) [#/Vo l]Ordered By: Tree Marcelino on 08-25-2022 Eosinophils (Bld) [#/Vol] 0.5 10*3/uL 0.0-0.45 [facility] Eosinophils/100 WBC Auto (Bl d)Ordered By: Tree Marcelino on 08-25-2022 Eosinophils/100 WBC (Bld) 6.3 % . [facility] Erythrocyte distribution wid th Auto (RBC) [Ratio]Ordered By: Tree Marcelino on 08-25-2022 Erythrocyte distribution width (RBC) [Ratio] 13.9 % 12.0-14.8 [facility] Hematocrit Auto (Bld) [Volum e fraction]Ordered By: Tree Marcelino on 08-25-2022 Hematocrit (Bld) [Volume fraction] 40.8 % 38.8-50.0 [facility] Hemoglobin [Mass/volume] in BloodOrdered By: Tree Marcelino on 08-25-2022 Hemoglobin (Bld) [Mass/Vol] 13.8 g/dL 13.0-17.0 [facility] Laboratory - CoagulationOrde red By: Tree Marcelino on 08-25-2022 PT Coag (PPP) [Time] 10.9 s 9.0-12.9 [facility] Leukocytes [#/volume] correc maco for nucleated erythrocytes in Blood by Automated counOrdered By: Tree Marcelino on 08-25-2022 WBC corrected for nucl RBC Auto (Bld) [#/Vol] 8.2 10*3/uL 4.1-10.5 [facility] Lipid Panelon 08-25-2022 Cholesterol [Mass/Vol] 101 mg/dL Low 140-200 [facility] Comment on above: Result Comment: Chol less than 200 mg/dl low risk Chol 201-239 mg/dl borderline risk Chol 240 mg/dl and greater high risk Performed By: #### C BC, PP, LYTES, BUN, CREAT, LIPID #### [facility] [address] Cholesterol in HDL [Mass/Vol] 31 mg/dL Normal 29-71 [facility] Comment on above: Result Comment: HDL CHOL ATP-III CLASSIFICATION Cardiovascular Risk HDL > or equal to 60 mg/dL LOW HDL < 40 mg/dL HIGH Performed By: #### C BC, PP, LYTES, BUN, CREAT, LIPID #### [facility] [address] Cholesterol.total/Chol esterol in HDL [Mass ratio] 3.3 {ratio} Normal <5.0 [facility] Comment on above: Result Comment: PERF ORMED BY: [place] [address] PATHOLOGIST [employer]RING [employer] TOOLING MACHINE OPERATOR MAX RAMOS M.D. Performed By: #### C BC, PP, LYTES, BUN, CREAT, LIPID #### [facility] [address] LDL Cholesterol,Calculated 35 mg/dL Normal 0-100 [facility] Comment on above: Result Comment: LDL ATP III CLASSIFICATION LDL less than 100 mg/dL Optimal LDL 100-129 mg/dL Near or above optimal LDL 130-159 mg/dL Borderline high LDL 160-189 mg/dL High LDL greater than 189 mg/dL Very high Performed By: #### C BC, PP, LYTES, BUN, CREAT, LIPID #### [facility] [address] Triglyceride w/Reflex 177 mg/dL High 0-149 [facility] Comment on above: Result Comment: TRIG ATP III CLASSIFICATION TRIG less than 150 mg/dL Normal TRIG 150-199 mg/dL Borderline high TRIG 200-500 mg/dL High TRIG greater than 500 mg/dL Very high Standard traceable to the Center for Disease Conrtrol and Prevention (CDC) test method. Performed By: #### C BC, PP, LYTES, BUN, CREAT, LIPID #### [facility] [address] VLDL CHOLESTEROL 35 mg/dL Normal [facility] Comment on above: Performed By: #### C BC, PP, LYTES, BUN, CREAT, LIPID #### [facility] [address] Lymphocytes Auto (Bld) [#/Vo l]Ordered By: Tree Marcelino on 08-25-2022 Lymphocytes (Bld) [#/Vol] 3.4 10*3/uL 1.00-4.8 [facility] Lymphocytes/100 WBC Auto (Bl d)Ordered By: Tree Marcelino on 08-25-2022 Lymphocytes/100 WBC (Bld) 42.2 % . [facility] MCH Auto (RBC) [Entitic mass ]Ordered By: Tree Marcelino on 08-25-2022 MCH (RBC) [Entitic mass] 32.2 pg 27.5-35.2 [facility] MCHC Auto (RBC) [Mass/Vol]Or dered By: Tree Marcelino on 08-25-2022 MCHC (RBC) [Mass/Vol] 33.7 g/dL 32.5-35.6 [facility] MCV Auto (RBC) [Entitic vol] Ordered By: Tree Marcelino on 08-25-2022 MCV (RBC) [Entitic vol] 95.4 fL 83.5-101 [facility] Monocytes Auto (Bld) [#/Vol] Ordered By: Tree Marcelino on 08-25-2022 Monocytes (Bld) [#/Vol] 0.7 10*3/uL 0.0-0.8 [facility] Monocytes/100 WBC Auto (Bld) Ordered By: Tree Marcelino on 08-25-2022 Monocytes/100 WBC (Bld) 8.4 % . [facility] Neutrophils Auto (Bld) [#/Vo l]Ordered By: Tree Marcelino on 08-25-2022 Neutrophils (Bld) [#/Vol] 3.4 10*3/uL 1.8-7.7 [facility] Neutrophils/100 WBC Auto (Bl d)Ordered By: Tree Marcelino on 08-25-2022 Neutrophils/100 WBC (Bld) 42.1 % . [facility] No Panel InformationOrdered By: Tree Marcelino on 08-25-2022 Estimated GFR (CKD-EPI) > 60.0 mL/Min [facility] Creatinine Clearance (Chem N/A [facility] Nucleated erythrocytes [Pres ence] in Blood by Automated countOrdered By: Tree Marcelino on 08-25-2022 Nucleated RBC Auto Ql (Bld) 0.1 /100{WBC} 0-0.5 [facility] Platelet mean volume Auto (B ld) [Entitic vol]Ordered By: Tree Marcelino on 08-25-2022 Platelet mean volume (Bld) [Entitic vol] 7.9 fL 6.6-10.1 [facility] Platelet poor plasma interna tional normalized ratio (INR) by coagulation assay (relatOrdered By: Tree Marcelino on 08-25-2022 INR Coag (PPP) [Relative time] 0.9 {INR} [facility] Comment on above: INR Therapeutic Rang [...] 08-25-2022 Platelets (Bld) [#/Vol] 206 10*3/uL 150-450 [facility] Potassium [Moles/volume] in Serum or PlasmaOrdered By: Tree Marcelino on 08-25-2022 Potassium [Moles/Vol] 4.6 mmol/L 3.5-5.1 [facility] RBC Auto (Bld) [#/Vol]Ordere d By: Tree Marcelino on 08-25-2022 RBC (Bld) [#/Vol] 4.28 10*6/uL 3.90-5.[address] [facility] Serum or plasma anion gap de terminationOrdered By: Tree Marcelino on 08-25-2022 Anion gap [Moles/Vol] 12.8 mmol/L 6.0-15.0 [facility] Serum or plasma high density lipoprotein (HDL) cholesterol measurementOrdered By: Tree Marcelino on 08-25-2022 Cholesterol in HDL [Mass/Vol] 31 mg/dL 29-71 [facility] Comment on above: HDL CHOL ATP-III CLA SSIFICATION Cardiovascular RiskHDL > or equal to 60 mg/dL LOWHDL < 40 mg/dL HIGH Serum or plasma total choles terol/high density lipoprotein (HDL) cholesterol mass ratOrdered By: Tree Marcelino on 08-25-2022 Cholesterol.total/Chol esterol in HDL [Mass ratio] 3.3 {ratio} <5.0 [facility] Sodium [Moles/volume] in Ser um or PlasmaOrdered By: Tree Marcelino on 08-25-2022 Sodium [Moles/Vol] 140 mmol/L 136-145 [facility] Triglyceride [Mass/volume] i n Serum or PlasmaOrdered By: Tree Marcelino on 08-25-2022 Triglyceride [Mass/Vol] 177 mg/dL 0-149 [facility] Comment on above: TRIG ATP III CLASSIF ICATIONTRIG less than 150 mg/dL NormalTRIG 150-199 mg/dL Borderline highTRIG 200-500 mg/dL High TRIG greater than 500 mg/dL Very highStandard traceable to the Center for Disease Conrtrol and Prevention (CDC) test method. Urea nitrogen [Mass/volume] in Serum or PlasmaOrdered By: Tree Marcelino on 08-25-2022 Urea nitrogen [Mass/Vol] 20 mg/dL 7-25 [facility] WBC Auto (Bld) [#/Vol]Ordere d By: Tree Marcelino on 08-25-2022 WBC (Bld) [#/Vol] 8.2 10*3/uL 4.1-10.5 [facility] Office Visit (Cardiology)on 08-18-2022 Follow-up visit Diagnoses/Problems Assessed Angina, class III (413.9) (I20.9) 2-3 month history of progressive frequency, duration and intensity of exertional symptoms concerning for crescendo angina. No symptoms at rest. Atherosclerosis 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 pectoris (414.01) (I25.10) [...] health. Orders Angina, class III, Atherosclerosis 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 pectoris Start: Isosorbide Mononitrate ER 30 MG Oral Tablet Extended Release 24 Hour; TAKE 1 TABLET DAILY DIRECTED Cardiac Catheterization Lab Procedures; Status:Active; Requested for:18Aug2022; [facility] [place] to initiate NO preop orders [...] we can help. You may also call 4-244-MGCT-NOW for free resources and assistance.; Status:Complete; Done: [id number] Tobacco Use Screening; Status:Complete; Done: [id number] Patient Instructions Please bring all medicines, vitamins, [...] contact the office if new symptoms arise. 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 Normal [facility] Tobacco Screening.on 023 Adult depression screening assessment No [facility] 250 DO Work Phone: Tobacco use status [facility] a) Yes [facility] DO Work Phone: Tobacco Screening. Yes [facility] 250 DO Work Phone: CBC AUTO DIFFon 04-19-2022 BASO # 0.1 103/ul Normal 0.0-0.1 [facility] Comment on above: Performed By: #### C BC #### [facility] [address] [place] [address] Dr. Amarjit Sanchez Basophils/100 WBC (Bld) 0.7 % Normal 0.2-2.0 [facility] Comment on above: Performed By: #### C BC #### [facility] [address] [address] [address] Amarjit Sanchez EO # 0.3 103/ul Normal 0.0-0.7 [facility] Comment on above: Performed By: #### C BC #### [facility] [address] [address] [address] Amarjit Sanchez Eosinophils/100 WBC (Bld) 2.4 % Normal 0.9-7.0 [facility] Comment on above: Performed By: #### C BC #### [facility] [address] [place] [address] Dr. Amarjit Sanchez Erythrocyte distribution width (RBC) [Ratio] 12.9 % Normal 11.0-15.0 [facility] Comment on above: Performed By: #### C BC #### [facility] [address] [place] [address] Dr. Amarjit Sanchez Hematocrit (Bld) [Volume fraction] 43.5 % Normal 42.0-54.0 [facility] Comment on above: Performed By: #### C BC #### [facility] [address] [place] [address] Dr. Amarjit Sanchez Hemoglobin (Bld) [Mass/Vol] 14.8 g/dL Normal 14.0-18.0 [facility] Comment on above: Performed By: #### C BC #### [facility] [address] [place] [address] Dr. Amarjit Sanchez IG # 0.23 10e3/ul Critically high 0.00-0.03 [facility] Comment on above: Performed By: #### C BC #### [facility] [address] [place] [address] Dr. Amarjit Sanchez IG % 1.7 % Critically high 0.0-0.5 [facility] Comment on above: Performed By: #### C BC #### [facility] [address] [place] [address] Dr. Amarjit Sanchez LYMPH # 4.5 103/ul Critically high 1.2-3.8 [facility] Comment on above: Performed By: #### C BC #### [facility] [address] [place] [address] Dr. Amarjit Sanchez Lymphocytes/100 WBC (Bld) 34.0 % Normal 20.5-60.0 [facility] Comment on above: Performed By: #### C BC #### [facility] [address] [place] [address] Dr. Amarjit Sanchez MANUAL DIFF REQ NO Normal [facility] Comment on above: Performed By: #### C BC #### [facility] [address] [place] [address] Dr. Amarjit Sanchez MCH (RBC) [Entitic mass] 31.7 pg Normal 25.9-34.0 [facility] Comment on above: Performed By: #### C BC #### [facility] [address] [place] [address] Dr. Amarjit Sanchez MCHC (RBC) [Mass/Vol] 34.0 g/dL Normal 29.9-35.2 [facility] Comment on above: Performed By: #### C BC #### [facility] [address] [place] [address] Dr. Amarjit Sanchez MCV (RBC) [Entitic vol] 93.1 fL Normal 80.0-94.0 [facility] Comment on above: Performed By: #### C BC #### [facility] [address] [place] [address] Dr. Amarjit Sanchez MONO # 0.8 103/ul Normal 0.3-0.8 [facility] Comment on above: Performed By: #### C BC #### [facility] [address] [place] [address] Dr. Amarjit Sanchez Monocytes/100 WBC (Bld) 5.9 % Normal 1.7-12.0 [facility] Comment on above: Performed By: #### C BC #### [facility] [address] [place] [address] Dr. Amarjit Sanchez NEUT # 7.4 103/ul Critically high 1.4-6.5 [facility] Comment on above: Performed By: #### C BC #### [facility] [address] [place] [address] Dr. Amarjit Sanchez Neutrophils/100 WBC (Bld) 55.3 % Normal 43.0-75.0 [facility] Comment on above: Performed By: #### C BC #### [facility] [address] [place] [address] Dr. Amarjit Sanchez Platelet mean volume (Bld) [Entitic vol] 9.3 fL Critically low 9.5-13.5 [facility] Comment on above: Performed By: #### C BC #### [facility] [address] [address] [address] Amarjit Sanchez PLT 222 103/ul Normal 150-450 [facility] Comment on above: Performed By: #### C BC #### [facility] [address] [address] [address] Amarjit Sanchez RBC 4.67 106/ul Critically low 4.70-6.10 [facility] Comment on above: Performed By: #### C BC #### [facility] [address] [address] [address] Amarjit Sanchez WBC 13.3 103/ul Critically high 4.0-11.0 [facility] Comment on above: Performed By: #### C BC #### [facility] [address] [place] [address] Dr. Amarjit Sanchez GLYCOHEMOGLOBIN A1Con 2021 ADA RECOMMENDATION SEE BELOW Normal [facility] Comment on above: Result Comment: ADA RECOMMENDED LIMIT 4.0 - 6.0 ADA THERAPEUTIC TARGET < 7.0 ACTION SUGGESTED > 7.0 Performed By: #### A 1C #### [facility] [address] [place] [address] Dr. Amarjit Sanchez Glucose [Mass/Vol] 194 mg/dL Normal [facility] Comment on above: Performed By: #### A 1C #### [facility] [address] [place] [address] Dr. Amarjit Sanchez HbA1c (Bld) [Mass fraction] 8.4 % Critically high 4.5-6.2 [facility] Comment on above: Performed By: #### A 1C #### [facility] [address] [place] [address] Dr. Amarjit Sanchez MICROALBUMIN, RAND URon 04-08 mALB <1.3 Normal <=30.0 [facility] Comment on above: Performed By: #### M ALBR #### [facility] [address] [place] [address] Dr. Amarjit Sanchez PROF 14(COMP METB)on 022 Albumin [Mass/Vol] 4.0 g/dL Normal 3.4-5.0 [facility] Comment on above: Performed By: #### C MP #### [facility] [address] [place] [address] Dr. Amarjit Sanchez Albumin/Globulin [Mass ratio] 1.2 {ratio} Normal [facility] Comment on above: Performed By: #### C MP #### [facility] [address] [place] [address] Dr. Amarjit Sanchez ALP [Catalytic activity/Vol] 74 U/L Normal 46-116 [facility] Comment on above: Performed By: #### C MP #### [facility] [address] [place] [address] Dr. Amarjit Sanchez ALT [Catalytic activity/Vol] 56 U/L Normal 16-63 [facility] Comment on above: Performed By: #### C MP #### [facility] [address] [place] [address] Dr. Amarjit Sanchez Anion gap [Moles/Vol] 15.5 mmol/L Normal [facility] Comment on above: Performed By: #### C MP #### [facility] [address] [place] [address] Dr. Amarjit Sanchez AST [Catalytic activity/Vol] 30 U/L Normal 15-37 [facility] Comment on above: Performed By: #### C MP #### [facility] [address] [place] [address] Dr. Amarjit Sanchez Bilirubin [Mass/Vol] 0.4 mg/dL Normal 0.2-1.0 [facility] Comment on above: Performed By: #### C MP #### [facility] [address] [place] [address] Dr. Amarjit Sanchez Calcium [Mass/Vol] 8.8 mg/dL Normal 8.5-10.1 [facility] Comment on above: Performed By: #### C MP #### [facility] [address] [place] [address] Dr. Amarjit Sanchez Chloride [Moles/Vol] 103 mmol/L Normal 98-107 [facility] Comment on above: Performed By: #### C MP #### [facility] [address] [address] [address] Amarjit Sanchez CO2 [Moles/Vol] 24.4 mmol/L Normal 21.0-32.0 [facility] Comment on above: Performed By: #### C MP #### [facility] [address] [address] [address] Amarjit Sanchez Creatinine [Mass/Vol] 1.11 mg/dL Normal 0.70-1.30 [facility] Comment on above: Performed By: #### C MP #### [facility] [address] [address] [address] Amarjit Sanchez EGFR-AF CITIZEN OF [place] >60 Normal >=60 [facility] Comment on above: Performed By: #### C MP #### [facility] [address] [place] [address] Dr. Amarjit Sanchez EGFR-NON AF CITIZEN OF [place] >60 Normal >=60 [facility] Comment on above: Performed By: #### C MP #### [facility] [address] [place] [address] Dr. Amarjit Sanchez Globulin (S) [Mass/Vol] 3.3 g/dL Normal [facility] Comment on above: Performed By: #### C MP #### [facility] [address] [place] [address] Dr. Amarjit Sanchez Glucose [Mass/Vol] 113 mg/dL Critically high 74-106 T [facility] Comment on above: Performed By: #### C MP #### [facility] [address] [place] [address] Dr. Amarjit Sanchez Potassium [Moles/Vol] 4.9 mmol/L Normal 3.5-5.1 [facility] Comment on above: Performed By: #### C MP #### [facility] [address] [place] [address] Dr. Amarjit Sanchez Protein [Mass/Vol] 7.3 g/dL Normal 6.4-8.2 [facility] Comment on above: Performed By: #### C MP #### [facility] [address] [address] [address] Amarjit Sanchez Sodium [Moles/Vol] 138 mmol/L Normal 136-145 [facility] Comment on above: Performed By: #### C MP #### [facility] [address] [address] [address] Amarjit Sanchez Urea nitrogen [Mass/Vol] 20.0 mg/dL Critically high 7.0-18.0 [facility] Comment on above: Performed By: #### C MP #### [facility] [address] [address] [address] Amarjit Sanchez Urea nitrogen/Creatinine [Mass ratio] 18.0 mg/mg Normal [facility] Comment on above: Performed By: #### C MP #### [facility] [address] [address] [address] Amarjit Sanchez No Panel Informationon 09-14 [facility] tracy 250 DO Work Phone: STR cardiac stress/lexiscano n 09-14-2021 STR cardiac stress/lexiscan [facility] [place] [address] Cardiac Stress Test Signed Patient: Roxane Bonner MR#: [id number] : 1960 Acct:[id number] Age/Sex: 60 / M ADM Date: 09/07/21 Loc: Room: Type: [facility] Attending Dr: Bridget Munoz DO Copies to: Mildred Palma MD, [facility] Bridget Munoz DO Ordering Provider: Bridget Munoz [...] reported separately by nuclear cardiology. Transcribed By: CHELLE 09/15/21 1149 Dictated By: Mildred Palma MD, [facility] 09/14/21 1418 Signed By: 09/15/21 1218 [facility] NM laura perf SPECT rest stron 09-13-2021 NM laura perf SPECT rest str [facility] [place] [address] Nuclear Medicine Report Signed Patient: Roxane Bonner MR#: [id number] : 1960 Acct:[id number] Age/Sex: 60 / M ADM Date: 09/07/21 Loc: Room: Type: [facility] Attending Dr: Bridget Munoz DO Ordering Provider: [...] previous study available for comparison. Transcribed By: CHELLE 09/13/21 5083 Dictated By: Jones Haynes MD 09/13/21 1112 Signed By: 09/14/21 1132 [facility] No Panel Informationon 09-13 Normal [facility] tracy 250 DO Work Phone: Tobacco Screening.on 022 Adult depression screening assessment No [facility] tracy 250 DO Work Phone: Tobacco use status [facility] a) Yes [facility] 250 DO Work Phone: Tobacco Screening. Yes [facility] 250 DO Work Phone: CBC AUTO DIFFon 07-30-2021 BASO # 0.1 103/ul Normal 0.0-0.1 [facility] Comment on above: Performed By: #### C BC #### [facility] [address] [place] [address] Dr. Amarjit Sanchez Basophils/100 WBC (Bld) 0.8 % Normal 0.2-2.0 [facility] Comment on above: Performed By: #### C BC #### [facility] [address] [place] [address] Dr. Amarjit Sanchez EO # 0.5 103/ul Normal 0.0-0.7 [facility] Comment on above: Performed By: #### C BC #### [facility] [address] [place] [address] Dr. Amarjit Sanchez Eosinophils/100 WBC (Bld) 6.2 % Normal 0.9-7.0 [facility] Comment on above: Performed By: #### C BC #### [facility] [address] [place] [address] Dr. Amarjit Sanchez Erythrocyte distribution width (RBC) [Ratio] 12.9 % Normal 11.0-15.0 [facility] Comment on above: Performed By: #### C BC #### [facility] [address] [place] [address] Dr. Amarjit Sanchez Hematocrit (Bld) [Volume fraction] 43.6 % Normal 42.0-54.0 [facility] Comment on above: Performed By: #### C BC #### [facility] [address] [place] [address] Dr. Amarjit Sanchez Hemoglobin (Bld) [Mass/Vol] 14.6 g/dL Normal 14.0-18.0 [facility] Comment on above: Performed By: #### C BC #### [facility] [address] [place] [address] Dr. Amarjit Sanchez IG # 0.04 10e3/ul Critically high 0.00-0.03 [facility] Comment on above: Performed By: #### C BC #### [facility] [address] [place] [address] Dr. Amarjit Sanchez IG % 0.5 % Normal 0.0-0.5 [facility] Comment on above: Performed By: #### C BC #### [facility] [address] [place] [address] Dr. Amarjit Sanchez LYMPH # 4.2 103/ul Critically high 1.2-3.8 [facility] Comment on above: Performed By: #### C BC #### [facility] [address] [place] [address] Dr. Amarjit Sanchez Lymphocytes/100 WBC (Bld) 51.2 % Normal 20.5-60.0 [facility] Comment on above: Performed By: #### C BC #### [facility] [address] [place] [address] Dr. Amarjit Sanchez MANUAL DIFF REQ NO Normal [facility] Comment on above: Performed By: #### C BC #### [facility] [address] [place] [address] Dr. Amarjit Sanchez MCH (RBC) [Entitic mass] 32.4 pg Normal 25.9-34.0 [facility] Comment on above: Performed By: #### C BC #### [facility] [address] [place] [address] Dr. Amarjit Sanchez MCHC (RBC) [Mass/Vol] 33.5 g/dL Normal 29.9-35.2 [facility] Comment on above: Performed By: #### C BC #### [facility] [address] [place] [address] Dr. Amarjit Sanchez MCV (RBC) [Entitic vol] 96.9 fL Critically high 80.0-94.0 [facility] Comment on above: Performed By: #### C BC #### [facility] [address] [place] [address] Dr. Amarjit Sanchez MONO # 0.7 103/ul Normal 0.3-0.8 [facility] Comment on above: Performed By: #### C BC #### [facility] [address] [address] [address] Amarjit Sanchez Monocytes/100 WBC (Bld) 8.5 % Normal 1.7-12.0 [facility] Comment on above: Performed By: #### C BC #### [facility] [address] [address] [address] Amarjit Sanchez NEUT # 2.7 103/ul Normal 1.4-6.5 [facility] Comment on above: Performed By: #### C BC #### [facility] [address] [place] [address] Dr. Amarjit Sanchez Neutrophils/100 WBC (Bld) 32.8 % Critically low 43.0-75.0 [facility] Comment on above: Performed By: #### C BC #### [facility] [address] [place] [address] Dr. Amarjit Sanchez Platelet mean volume (Bld) [Entitic vol] 10.1 fL Normal 9.5-13.5 [facility] Comment on above: Performed By: #### C BC #### [facility] [address] [place] [address] Dr. Amarjit Sanchez PLT 222 103/ul Normal 150-450 [facility] Comment on above: Performed By: #### C BC #### [facility] [address] [place] [address] Dr. Amarjit Sanchez RBC 4.50 106/ul Critically low 4.70-6.10 [facility] Comment on above: Performed By: #### C BC #### [facility] [address] [place] [address] Dr. Amarjit Sanchez WBC 8.2 103/ul Normal 4.0-11.0 [facility] Comment on above: Performed By: #### C BC #### [facility] [address] [place] [address] Dr. Amarjit Sanchez GLYCOHEMOGLOBIN A1Con 2021 ADA RECOMMENDATION ADA THERAPEUTIC TARG ET 6.0 - 7.0 ACTION SUGGESTED > 7.0 Normal [facility] Comment on above: Performed By: #### A 1C #### [facility] [address] [place] [address] Dr. Amarjit Sanchez Glucose [Mass/Vol] 197 mg/dL Normal [facility] Comment on above: Performed By: #### A 1C #### [facility] [address] [place] [address] Dr. Amarjit Sanchez HbA1c (Bld) [Mass fraction] 8.5 % Critically high <=6.0 [facility] Comment on above: Performed By: #### A 1C #### [facility] [address] [place] [address] Dr. Amarjit Sanchez MICROALBUMIN, RAND URon 07-08 mALB <1.3 Normal <=30.0 [facility] Comment on above: Performed By: #### M ALBR #### [facility] [address] [place] [address] Dr. Amarjit Sanchez PROF 14(COMP METB)on 022 Albumin [Mass/Vol] 4.3 g/dL Normal 3.4-5.0 [facility] Comment on above: Performed By: #### C MP #### [facility] [address] [place] [address] Dr. Amarjit Sanchez Albumin/Globulin [Mass ratio] 1.3 {ratio} Normal [facility] Comment on above: Performed By: #### C MP #### [facility] [address] [place] [address] Dr. Amarjit Sanchez ALP [Catalytic activity/Vol] 86 U/L Normal 46-116 [facility] Comment on above: Performed By: #### C MP #### [facility] [address] [place] [address] Dr. Amarjit Sanchez ALT [Catalytic activity/Vol] 54 U/L Normal 16-63 [facility] Comment on above: Performed By: #### C MP #### [facility] [address] [place] [address] Dr. Amarjit Sanchez Anion gap [Moles/Vol] 12.2 mmol/L Normal [facility] Comment on above: Performed By: #### C MP #### [facility] [address] [address] [address] Amarjit Sanchez AST [Catalytic activity/Vol] 33 U/L Normal 15-37 [facility] Comment on above: Performed By: #### C MP #### [facility] [address] [address] [address] Amarjit Sanchez Bilirubin [Mass/Vol] 0.3 mg/dL Normal 0.2-1.3 [facility] Comment on above: Performed By: #### C MP #### [facility] [address] [address] [address] Amarjit Sanchez Calcium [Mass/Vol] 9.3 mg/dL Normal 8.5-10.1 [facility] Comment on above: Performed By: #### C MP #### [facility] [address] [address] [address] Amarjit Sanchez Chloride [Moles/Vol] 103 mmol/L Normal 98-107 [facility] Comment on above: Performed By: #### C MP #### [facility] [address] [address] [address] Amarjit Sanchez CO2 [Moles/Vol] 28.3 mmol/L Normal 22.0-30.0 [facility] Comment on above: Performed By: #### C MP #### [facility] [address] [address] [address] Amarjit Sanchez Creatinine [Mass/Vol] 1.17 mg/dL Normal 0.66-1.25 [facility] Comment on above: Performed By: #### C MP #### [facility] [address] [address] [address] Amarjit Sanchez EGFR-AF CITIZEN [place] >60 Normal >=60 [facility] Comment on above: Performed By: #### C MP #### [facility] [address] [address] [address] Amarjit Sanchez EGFR-NON AF CITIZEN OF [place] >60 Normal >=60 [facility] Comment on above: Performed By: #### C MP #### [facility] [address] [address] [address] Amarjit Sanchez Globulin (S) [Mass/Vol] 3.3 g/dL Normal [facility] Comment on above: Performed By: #### C MP #### [facility] [address] [address] [address] Amarjit Sanchez Glucose [Mass/Vol] 118 mg/dL Critically high 74-106 T [facility] Comment on above: Performed By: #### C MP #### [facility] [address] [address] [address] Amarjit Sanchez Potassium [Moles/Vol] 4.5 mmol/L Normal 3.4-5.0 [facility] Comment on above: Performed By: #### C MP #### [facility] [address] [address] [address] Amarjit Sanchez Protein [Mass/Vol] 7.6 g/dL Normal 6.1-8.2 [facility] Comment on above: Performed By: #### C MP #### [facility] [address] [place] [address] Dr. Amarjit Sanchez Sodium [Moles/Vol] 139 mmol/L Normal 137-145 [facility] Comment on above: Performed By: #### C MP #### [facility] [address] [address] [address] Amarjit Sanchez Urea nitrogen [Mass/Vol] 19.0 mg/dL Critically high 7.0-18.0 [facility] Comment on above: Performed By: #### C MP #### [facility] [address] [place] [address] Dr. Amarjit Sanchez Urea nitrogen/Creatinine [Mass ratio] 16.2 mg/mg Normal [facility] Comment on above: Performed By: #### C MP #### [facility] [address] [place] [address] Dr. Amarjit Sanchez US RENAL COMPLETEon 10-29-19 [...] Iggy Valero MD 10/28/20 Final result Normal [facility] US RENAL COMPLETEOrdered By: Pratik Miranda on 10-28-2020 Left renal cortical cysts are noted with nonobstructing stones as well. Otherwise unremarkable sonographic appearance of the kidneys. Unremarkable ultrasound of the bladder. [employer] Phone: EXAMINATION: ULTRASO UND OF THE KIDNEYS [...] focal urinary bladder wall abnormality was appreciated. [facility] Phone: Ayden, Mhpn Incoming Radiant Results From [employer]/[facility]j[employer] - 10/28/2020 9:54 PM EDT EXAMINATION: ULTRASOUND [...] the kidneys. Unremarkable ultrasound of the bladder. [facility] [employer] Work Phone: [facility] [employer] Phone: DEVONTE Screen w/reflexon 2020 DEVONTE Screen Negative Normal NEG [facility] Comment on above: Performed By: #### F KLLC, C3, C4, ANAX, PE, IFX, PHEP #### [facility] [employer] [address] [place] [address] [id number] Mol[employer] Preparer: Rohan Mitchell MD #### CDP, BMP, URI #### [facility] [address] [place] [address] [employer] Preparer: William Ayala DO Anti-dsDNA <0.5 Normal <10.0 [facility] Comment on above: Result Comment: Reference Range: <10.0 Negative 10.0-15.0 Equivocal >15.0 Positive Performed By: #### F KLLC, C3, C4, ANAX, PE, IFX, PHEP #### [facility] [employer] [address] [place] [id number] [employer] Preparer: Rohan Mitchell MD #### BRICE MENDOZA, URI #### [facility] [place] [address] [employer] Preparer: William Ayala DO LOIS Screen 0.2 U/mL Normal <0.7 [facility] Comment on above: Result Comment: Reference Range: <0.7 Negative 0.7-1.0 Equivocal >1.0 Positive LOIS Screen includes U1RNP,RNP70,Sm,Ro(SS-A),La(SS-B),CENP,Scl-70,Kassi-1 Performed By: #### F KLLC, C3, C4, ANAX, PE, IFX, PHEP #### [address] [address] [employer] Preparer: Rohan Mitchell MD #### BRICE MENDOZA, URI #### [facility] [address] [place] [address] [employer] Preparer: William Ayala DO Immunofixation,Bloodon 10-24 IFX - Interpret. IMMUNOFIXATION IS NEGATIVE FOR MONOCLONAL IMMUNOGLOBULIN. Normal [facility] Comment on above: Performed By: #### F KLLC, C3, C4, ANAX, PE, IFX, PHEP #### [address] [address] [employer] Preparer: Rohan Mitchell MD #### BRICE MENDOZA, URI #### [facility] [place] [address] [employer] Preparer: William Ayala DO Pathologist Review: ELECTRONICALLY EDMUNDO NEWBERRY M.D. [facility] Comment on above: Performed By: #### F KLLC, C3, C4, ANAX, PE, IFX, PHEP #### [facility] [employer] [address] [place] [address] Molasses Preparer: Rohan Mitchell MD #### CDP, BMP, URI #### [facility] [address] [place] [address] [employer] Preparer: William Ayala DO Prot. Electroph, Blon 2020 Pathologist Review: ELECTRONICALLY EDMUNDO NEWBERRY M.D. Normal [facility] Comment on above: Performed By: #### F KLLC, C3, C4, ANAX, PE, IFX, PHEP #### [address] [address] [employer] Preparer: Rohan Mitchell MD #### REJI, BRICE, URI #### [facility] [address] [place] [address] [employer] Preparer: William Ayala DO Prot. Elect-Interp NORMAL ELECTROPHORET IC PATTERN Normal [facility] Comment on above: Result Comment: GAMM AGLOBULINS ARE LOW NORMAL. IMMUNOFIXATION IS NEGATIVE FOR MONOCLONAL IMMUNOGLOBULIN. Performed By: #### F KLLC, C3, C4, ANAX, PE, IFX, PHEP #### [address] [address] [employer]asses Preparer: Rohan Mitchell MD #### REJI, BRICE, URI #### [facility] [place] [address] [employer]asses Preparer: William Ayala DO Total Prot. Sum 6.5 g/dL Normal 6.3-8.2 [facility] Comment on above: Performed By: #### F KLLC, C3, C4, ANAX, PE, IFX, PHEP #### [address] [address] [employer] Preparer: Rohan Mitchell MD #### CDP, BMP, URI #### [facility] [address] [place] [address] Molasses Preparer: William Ayala DO Total Prot. Sum,% 101 % Normal 98-102 [facility] Comment on above: Performed By: #### F KLLC, C3, C4, ANAX, PE, IFX, PHEP #### [address] [address] [employer] Preparer: Rohan Mitchell MD #### REJI, BRICE, URI #### [facility] [address] [place] [address] Molasses Preparer: William Ayala DO Albumin [Mass/Vol] 4.6 g/dL Normal 3.2-5.2 [facility] Comment on above: Performed By: #### F KLLC, C3, C4, ANAX, PE, IFX, PHEP #### [address] [address] Molasses Preparer: Rohan Mitchell MD #### REJI, BMP, URI #### [facility] [address] [place] [address] [employer]asses Preparer: William Ayala DO Albumin, % 70 % High 45-65 [facility] Comment on above: Performed By: #### F KLLC, C3, C4, ANAX, PE, IFX, PHEP #### [address] [address] [employer]asses Preparer: Rohan Mitchell MD #### CDP, BMP, URI #### [facility] [address] [place] [address] [employer] Preparer: William Ayala DO Fvzka-[id number]-bspnhnwtn 0.1 g/dL Normal 0.1-0.4 [facility] Comment on above: Performed By: #### F KLLC, C3, C4, ANAX, PE, IFX, PHEP #### [address] [address] [employer]asses Preparer: Rohan Mitchell MD #### CDP, BMP, URI #### [facility] [address] [place] [address] [employer]asses Preparer: William Ayala, DO [id number],% 2 % Low 3-6 [facility] Comment on above: Performed By: #### F KLLC, C3, C4, ANAX, PE, IFX, PHEP #### [address] [place] [address] Molasses Preparer: Rohan Mitchell MD #### REJI, BMP, URI #### [facility] [address] [place] [address] Molasses Preparer: William Ayala DO Dqvbf-7-suuumkxkj 0.6 g/dL Normal 0.5-0.9 [facility] Comment on above: Performed By: #### F KLLC, C3, C4, ANAX, PE, IFX, PHEP #### [address] [address] Molasses Preparer: Rohan Mitchell MD #### REJI, BMP, URI #### [facility] [address] [place] [address] Molasses Preparer: William Ayala DO Oppnc-4-[id number],% 10 % Normal 6-13 [facility] Comment on above: Performed By: #### F KLLC, C3, C4, ANAX, PE, IFX, PHEP #### [address] [address] Molasses Preparer: Rohan Mitchell MD #### REJI, BMP, URI #### [facility] [address] [place] [address] [employer] Preparer: William Ayala DO Beta-globulins 0.7 g/dL Normal 0.5-1.1 [facility] Comment on above: Performed By: #### F KLLC, C3, C4, ANAX, PE, IFX, PHEP #### [address] [address] Molasses Preparer: Rohan Mitchell MD #### CDP, BMP, URI #### [facility] [place] [address] Molasses Preparer: William Ayala DO Beta-globulins,% 11 % Normal 11-[address] [facility] Comment on above: Performed By: #### F KLLC, C3, C4, ANAX, PE, IFX, PHEP #### [address] [address] Molasses Preparer: Rohan Mitchell MD #### CDP, BMP, URI #### [facility] [address] [place] [address] Molasses Preparer: William Ayala DO Gamma-globulins 0.5 g/dL Normal 0.5-1.5 [facility] Comment on above: Performed By: #### F KLLC, C3, C4, ANAX, PE, IFX, PHEP #### [address] [address] Molasses Preparer: Rohan Mitchell MD #### CDP, BMP, URI #### [facility] [place] [address] Molasses Preparer: William Ayala DO Gamma-globulins,% 8 % Low 9-20 [facility] Comment on above: Performed By: #### F KLLC, C3, C4, ANAX, PE, IFX, PHEP #### [address] [address] Molasses Preparer: Rohan Mitchell MD #### CDP, BMP, URI #### [facility] [address] [facility] [place] [address] Molasses Preparer: William Ayala DO Prot. Electroph, Uron 2020 Pathologist Review: ELECTRONICALLY EDMUNDO NEWBERRY M.D. Normal [facility] Comment on above: Performed By: #### F KLLC, C3, C4, ANAX, PE, IFX, PHEP #### [facility] [address] [place] [address] Molasses Preparer: Rohan Mitchell MD #### CDP, BMP, URI #### [facility] [address] [place] [address] Molasses Preparer: William Ayala DO Ur.-Prot.Elect-Inter NORMAL ELECTROPHORE TIC PATTERN Normal [facility] Comment on above: Performed By: #### F KLLC, C3, C4, ANAX, PE, IFX, PHEP #### [facility] [place] [address] Molasses Preparer: Rohan Mitchell MD #### REJI, BMP, URI #### [facility] [place] [address] Molasses Preparer: William Ayala DO Basic Metabolic PanelOrdered By: Pratik Miranda on 10-23-2020 Anion gap [Moles/Vol] 9 mmol/L 9 - 17 mmol/L [facility] [employer] Phone: Calcium [Mass/Vol] 9.4 mg/dL 8.6 - 10. 4 mg/dL [employer] Phone: Chloride [Moles/Vol] 102 mmol/L 98 - 10 7 mmol/L [employer] Phone: CO2 [Moles/Vol] 27 mmol/L 20 - 31 mmol/L [employer] Phone: Creatinine [Mass/Vol] 1.13 mg/dL 0.70 - 1.20 mg/dL [employer] Phone: GFR >60 >60 mL/min [employer] Phone: GFR Non- >60 >60 mL/min [facility] Phone: GFR/1.73 sq M.predicted MDRD (S/P/Bld) [Vol rate/Area] [employer] Phone: Comment on above: Average GFR for 60-6 9 years old: 85 mL/min/1.73sq m Chronic Kidney Disease: <60 mL/min/1.73sq m Kidney failure: <15 mL/min/1.73sq m eGFR calculated using average adult body mass. Additional eGFR calculator available at: http://www.MyMundus/multiple_crcl_2012.htm GFR/1.73 sq M.predicted MDRD (S/P/Bld) [Vol rate/Area] NOT REPORTED [facility] Phone: Glucose [Mass/Vol] 234 mg/dL High 70 - 99 mg/dL [employer] Phone: Interpretation and review of laboratory results Abnormal [employer] Phone: Potassium [Moles/Vol] 5.3 mmol/L 3.7 - 5.3 mmol/L [employer] Phone: Sodium [Moles/Vol] 138 mmol/L 135 - 144 mmol/L [employer] Phone: Urea nitrogen (BldV) [Mass/Vol] 14 mg/dL 8 - 23 mg/dL [facility] Phone: Urea nitrogen/Creatinine (Bld) [Mass ratio] NOT REPORTED [employer] Phone: Basic Metabolic Profon 10-23 (cont.) Normal [facility] Comment on above: Result Comment: Aver age GFR for 60-69 years old: 85 mL/min/1.73sq m Chronic Kidney Disease: <60 mL/min/1.73sq m Kidney failure: <15 mL/min/1.73sq m eGFR calculated using average adult body mass. Additional eGFR calculator available at: http://www.MyMundus/multiple_crcl_2012.htm Performed By: #### F KLLC, C3, C4, ANAX, PE, IFX, PHEP #### [address] [address] Molasses Preparer: Rohan Mitchell MD #### REJI, BRICE, URI #### [facility] [address] [place] [address] Molasses Preparer: William Ayala DO Anion gap [Moles/Vol] 9 mmol/L Normal 9-17 [facility] Comment on above: Performed By: #### F KLLC, C3, C4, ANAX, PE, IFX, PHEP #### [address] [address] Molasses Preparer: Rohan Mitchell MD #### BRICE MENDOZA, URI #### [facility] [place] [address] Molasses Preparer: William Ayala DO Calcium [Mass/Vol] 9.4 mg/dL Normal 8.6-10.4 [facility] Comment on above: Performed By: #### F KLLC, C3, C4, ANAX, PE, IFX, PHEP #### [address] [address] Molasses Preparer: Rohan Mitchell MD #### REJI, BRICE, URI #### [facility] [address] [place] [address] Molasses Preparer: William Ayala DO Chloride [Moles/Vol] 102 mmol/L Normal 98-107 [facility] Comment on above: Performed By: #### F KLLC, C3, C4, ANAX, PE, IFX, PHEP #### [address] [address] Molasses Preparer: Rohan Mitchell MD #### REJI, BMP, URI #### [facility] [place] [address] Molasses Preparer: William Ayala DO CO2 [Moles/Vol] 27 mmol/L Normal 20-31 [facility] Comment on above: Performed By: #### F KLLC, C3, C4, ANAX, PE, IFX, PHEP #### [address] [address] Molasses Preparer: Rohan Mitchell MD #### REJI, BRICE, URI #### [facility] [address] [place] [address] Molasses Preparer: William Ayala DO Creatinine [Mass/Vol] 1.13 mg/dL Normal 0.70-1.20 [facility] Comment on above: Performed By: #### F KLLC, C3, C4, ANAX, PE, IFX, PHEP #### [address] [address] Molasses Preparer: Rohan Mitchell MD #### REJI, BMP, URI #### [facility] [address] [place] [address] Molasses Preparer: William Ayala DO GFR, Amer >60 Normal >[address] [facility] Comment on above: Performed By: #### F KLLC, C3, C4, ANAX, PE, IFX, PHEP #### [address] [address] Molasses Preparer: Rohan Mitchell MD #### CDP, BMP, URI #### [facility] [address] [place] [address] Molasses Preparer: William Ayala DO GFR,non Amer >60 Normal >60 [facility] Comment on above: Performed By: #### F KLLC, C3, C4, ANAX, PE, IFX, PHEP #### [address] [address] Molasses Preparer: Rohan Mitchell MD #### BRICE MENDOZA, URI #### [facility] [address] [place] [address] Molasses Preparer: William Ayala DO Glucose [Mass/Vol] 234 mg/dL High 70-99 [facility] Comment on above: Performed By: #### F KLLC, C3, C4, ANAX, PE, IFX, PHEP #### [address] [address] Molasses Preparer: Rohan Mitchell MD #### REJI, BRICE, URI #### [facility] [address] [place] [address] Molasses Preparer: William Ayala DO Potassium [Moles/Vol] 5.3 mmol/L Normal 3.7-5.3 [facility] Comment on above: Performed By: #### F KLLC, C3, C4, ANAX, PE, IFX, PHEP #### [address] [address] Molasses Preparer: Rohan Mitchell MD #### CDP, BMP, URI #### [facility] [place] [address] Molasses Preparer: William Ayala DO Sodium [Moles/Vol] 138 mmol/L Normal 135-144 [facility] Comment on above: Performed By: #### F KLLC, C3, C4, ANAX, PE, IFX, PHEP #### [address] [address] [place] [address] Molasses Preparer: Rohan Mitchell MD #### REJI, BMP, URI #### [facility] [address] [place] [address] Molasses Preparer: William Ayala DO Urea nitrogen [Mass/Vol] 14 mg/dL Normal 8-23 [facility] Comment on above: Performed By: #### F KLLC, C3, C4, ANAX, PE, IFX, PHEP #### [address] [place] [address] Molasses Preparer: Rohan Mitchell MD #### REJI, BRICE, URI #### [facility] [address] [place] [address] Molasses Preparer: William Ayala DO BUN/CRE Ratio NOT REPORTED Normal 9-20 [facility] Comment on above: Performed By: #### F KLLC, C3, C4, ANAX, PE, IFX, PHEP #### [address] [address] Molasses Preparer: Rohan Mitchell MD #### REJI, BRICE, URI #### [facility] [place] [address] Molasses Preparer: William Ayala DO Staging: NOT REPORTED Normal [facility] Comment on above: Performed By: #### F KLLC, C3, C4, ANAX, PE, IFX, PHEP #### [address] [address] Molasses Preparer: Rohan Mitchell MD #### REJI, BRICE, URI #### [facility] [address] [place] [address] Molasses Preparer: William Ayala DO C3on 10-23-2020 C3 133 mg/dL Normal 90-180 [facility] Comment on above: Performed By: #### F KLLC, C3, C4, ANAX, PE, IFX, PHEP #### [facility] [address] [place] [address] Molasses Preparer: Rohan Mitchell MD #### CDP, BMP, URI #### [facility] [address] [place], [place] [id number] Molasses Preparer: William Ayala DO C3 ComplementOrdered By: Howard Miranda on 10-23-2020 Complement C3 133 mg/dL 90 - 180 mg/dL [employer] Phone: C4on 10-23-2020 C4 28 mg/dL Normal 10-40 [facility] Comment on above: Performed By: #### F KLLC, C3, C4, ANAX, PE, IFX, PHEP #### [facility] [employer] [address] [place] [phone] Molasses Preparer: Rohan Mitchell MD #### REJI, BRICE, URI #### [facility] [address] [place], [place] [id number] Molasses Preparer: William Ayala DO C4 ComplementOrdered By: Howard Miranda on 10-23-2020 Complement C4 28 mg/dL 10 - 40 mg/dL [employer] Phone: CBC Auto DifferentialOrdered By: Pratik Miranda on 10-23-2020 Absolute Eos # 0.40 [employer] Phone: Absolute Immature Granulocyte NOT REPORTED [employer] Phone: Absolute Lymph # 2.60 [employer] Phone: Absolute Gulf # 0.70 [employer] Phone: Basophils (Bld) [#/Vol] 0.10 10*3/uL [employer] Phone: Basophils/100 WBC (Bld) 1 % 0 - 2 % [employer] Phone: Differential Type NOT REPORTED [employer] Phone: Eosinophils/100 WBC (Bld) 5 % High 0 - 4 % [employer] Phone: Hematocrit (Bld) [Volume fraction] 42.5 % 41 - 53 % [employer] Phone: Hemoglobin.gastrointes tinal spec 1 Ql (Stl) 13.9 g/dL 13.5 - 17.5 g/dL [employer] Phone: Immature Granulocytes NOT REPORTED 0 % [employer] Phone: Interpretation and review of laboratory results Abnormal [employer] Phone: Lymphocytes/100 WBC (Bld) 32 % 24 - 44 % [employer] Phone: MCH (RBC) [Entitic mass] 32.0 pg 26 - 34 pg [employer] Phone: MCHC (RBC) [Mass/Vol] 32.8 g/dL 31 - 37 g/dL [employer] Phone: MCV (RBC) [Entitic vol] 97.5 fL 80 - 100 fL [employer] Phone: Monocytes/100 WBC (Bld) 9 % High 1 - 7 % [employer] Phone: NRBC Automated NOT REPORTED per 100 WBC [employer] Phone: Platelet distribution width (Bld) [Ratio] 13.6 % 11.5 - 14.9 % [employer] Phone: Platelet Estimate NOT REPORTED [employer] Phone: Platelet mean volume (Bld) [Entitic vol] 7.0 fL 6.0 - 12.0 fL [employer] Phone: Platelets (Bld) [#/Vol] 241 10*3/uL [employer] Phone: RBC (Bld) [#/Vol] 4.36 10*6/uL Low 4.5 - 5.9 m/uL [employer] Phone: RBC (Bld) [#/Vol] NOT REPORTED [employer] Phone: Segmented neutrophils/100 WBC (Bld) 53 % 36 - 66 % [employer] Phone: Segs Absolute 4.30 [employer] Phone: WBC (Bld) [#/Vol] 8.0 10*3/uL [employer] Phone: WBC (Bld) [#/Vol] NOT REPORTED [employer] Phone: [employer] Phone: CBC with Diffon 10-23-2020 Abs. Basophil 0.10 k/uL Normal 0.0-0.2 [facility] Comment on above: Performed By: #### F KLLC, C3, C4, ANAX, PE, IFX, PHEP #### [employer] [address] [place] [phone] Molasses Preparer: Rohan Mitchell MD #### BRICE MENDOZA, SIMONI #### [facility] [address] [place], [place] [id number] Molasses Preparer: William Ayala DO Abs.Neutrophil (Seg) 4.30 k/uL Normal 1.3-9.1 [facility] Comment on above: Performed By: #### F KLLC, C3, C4, ANAX, PE, IFX, PHEP #### [facility] [address] [place] [phone] Molasses Preparer: Rohan Mitchell MD #### BRICE MENDOZA, URI #### [facility] [address] [place] [address] Molasses Preparer: William Ayala DO Basophils/100 WBC (Bld) 1 % Normal 0-2 [facility] Comment on above: Performed By: #### F KLLC, C3, C4, ANAX, PE, IFX, PHEP #### [address] [address] Molasses Preparer: Rohan Mitchell MD #### REJI, BRICE, URI #### [facility] [place] [address] Molasses Preparer: William Ayala DO Eosinophils (Bld) [#/Vol] 0.40 10*3/uL Normal 0.0-0.4 [facility] Comment on above: Performed By: #### F KLLC, C3, C4, ANAX, PE, IFX, PHEP #### [address] [address] Molasses Preparer: Rohan Mitchell MD #### REJI, BRICE, URI #### [facility] [address] [place] [address] Molasses Preparer: William Ayala DO Eosinophils/100 WBC (Bld) 5 % High 0-4 [facility] Comment on above: Performed By: #### F KLLC, C3, C4, ANAX, PE, IFX, PHEP #### [address] [address] Molasses Preparer: Rohan Mitchell MD #### REJI, BRICE, URI #### [facility] [address] [place] [address] Molasses Preparer: William Ayala DO Erythrocyte distribution width (RBC) [Ratio] 13.6 % Normal 11.5-14.9 [facility] Comment on above: Performed By: #### F KLLC, C3, C4, ANAX, PE, IFX, PHEP #### [address] [address] Molasses Preparer: Rohan Mitchell MD #### REJI, BRICE, URI #### [facility] [place] [address] Molasses Preparer: William Ayala DO Hematocrit (Bld) [Volume fraction] 42.5 % Normal 41-53 [facility] Comment on above: Performed By: #### F KLLC, C3, C4, ANAX, PE, IFX, PHEP #### [address] [address] Molasses Preparer: Rohan Mitchell MD #### REJI, BRICE, URI #### [facility] [address] [place] [address] Molasses Preparer: William Ayala DO Hemoglobin (Bld) [Mass/Vol] 13.9 g/dL Normal 13.5-17.5 [facility] Comment on above: Performed By: #### F KLLC, C3, C4, ANAX, PE, IFX, PHEP #### [address] [address] Molasses Preparer: Rohan Mitchell MD #### REJI, BRICE, URI #### [facility] [place] [address] Molasses Preparer: William Ayala DO Lymphocytes (Bld) [#/Vol] 2.60 10*3/uL Normal 1.0-4.8 [facility] Comment on above: Performed By: #### F KLLC, C3, C4, ANAX, PE, IFX, PHEP #### [address] [address] Molasses Preparer: Rohan Mitchell MD #### REJI, BRICE, URI #### [facility] [address] [place] [address] Molasses Preparer: William Ayala DO Lymphocytes/100 WBC (Bld) 32 % Normal 24-44 [facility] Comment on above: Performed By: #### F KLLC, C3, C4, ANAX, PE, IFX, PHEP #### [address] [address] Molasses Preparer: Rohan Mitchell MD #### REJI, BRICE, URI #### [facility] [place] [address] Molasses Preparer: William Ayala DO MCH (RBC) [Entitic mass] 32.0 pg Normal 26-34 [facility] Comment on above: Performed By: #### F KLLC, C3, C4, ANAX, PE, IFX, PHEP #### [address] [address] Molasses Preparer: Rohan Mitchell MD #### REJI, BRICE, URI #### [facility] [address] [place] [address] Molasses Preparer: William Ayala DO MCHC (RBC) [Mass/Vol] 32.8 g/dL Normal 31-37 [facility] Comment on above: Performed By: #### F KLLC, C3, C4, ANAX, PE, IFX, PHEP #### [address] [address] Molasses Preparer: Rohan Mitchell MD #### CDP, BMP, URI #### [facility] [address] [place] [address] Molasses Preparer: William Ayala DO MCV (RBC) [Entitic vol] 97.5 fL Normal 80-100 [facility] Comment on above: Performed By: #### F KLLC, C3, C4, ANAX, PE, IFX, PHEP #### [address] [address] Molasses Preparer: Rohan Mitchell MD #### REJI, BRICE, URI #### [facility] [address] [place] [address] Molasses Preparer: William Ayala DO Monocytes (Bld) [#/Vol] 0.70 10*3/uL Normal 0.1-1.3 [facility] Comment on above: Performed By: #### F KLLC, C3, C4, ANAX, PE, IFX, PHEP #### [address] [address] Molasses Preparer: Rohan Mitchell MD #### REJI, BRICE, URI #### [facility] [address] [place] [address] Molasses Preparer: William Ayala DO Monocytes/100 WBC (Bld) 9 % High 1-7 [facility] Comment on above: Performed By: #### F KLLC, C3, C4, ANAX, PE, IFX, PHEP #### [address] [address] Molasses Preparer: Rohan Mitchell MD #### REJI, BRICE, URI #### [facility] [address] [place] [address] Molasses Preparer: William Ayala DO Neutrophil (Seg) 53 % Normal 36-[address] [facility] Comment on above: Performed By: #### F KLLC, C3, C4, ANAX, PE, IFX, PHEP #### [address] [address] Molasses Preparer: Rohan Mitchell MD #### REJI, BRICE, URI #### [facility] [address] [place] [address] Molasses Preparer: William Ayala DO Platelet mean volume (Bld) [Entitic vol] 7.0 fL Normal 6.0-12.0 [facility] Comment on above: Performed By: #### F KLLC, C3, C4, ANAX, PE, IFX, PHEP #### [address] [address] Molasses Preparer: Rohan Mitchell MD #### REJI, BRICE, URI #### [facility] [address] [place] [address] Molasses Preparer: William Ayala DO Platelets (Bld) [#/Vol] 241 10*3/uL Normal 150-450 [facility] Comment on above: Performed By: #### F KLLC, C3, C4, ANAX, PE, IFX, PHEP #### [address] [address] Molasses Preparer: Rohan Mitchell MD #### REJI, BRICE, URI #### [facility] [address] [place] [address] Molasses Preparer: William Ayala DO RBC (Bld) [#/Vol] 4.36 10*6/uL Low 4.5-5.9 [facility] Comment on above: Performed By: #### F KLLC, C3, C4, ANAX, PE, IFX, PHEP #### [address] [address] Molasses Preparer: Rohan Mitchell MD #### REJI, BMP, URI #### [facility] [address] [place] [address] Molasses Preparer: William Ayala DO WBC (Bld) [#/Vol] 8.0 10*3/uL Normal 3.5-11.0 [facility] Comment on above: Performed By: #### F KLLC, C3, C4, ANAX, PE, IFX, PHEP #### [address] [address] Molasses Preparer: Rohan Mitchell MD #### CDP, BMP, URI #### [facility] [address] [place] [address] Molasses Preparer: William Ayala DO Abs.Imm.Granulocyte NOT REPORTED Normal 0.00-0.30 [facility] Comment on above: Performed By: #### F KLLC, C3, C4, ANAX, PE, IFX, PHEP #### [address] [address] Molasses Preparer: Rohan Mitchell MD #### REJI, BMP, URI #### [facility] [address] [place] [address] Molasses Preparer: William Ayala DO Auto Diff Performed NOT REPORTED Normal [facility] Comment on above: Performed By: #### F KLLC, C3, C4, ANAX, PE, IFX, PHEP #### [address] [address] Molasses Preparer: Rohan Mitchell MD #### REJI, BMP, URI #### [facility] [address] [place] [address] Molasses Preparer: William Ayala DO Immature Granulocyte NOT REPORTED Normal 0 [facility] Comment on above: Performed By: #### F KLLC, C3, C4, ANAX, PE, IFX, PHEP #### [address] [address] Molasses Preparer: Rohan Mitchell MD #### CDP, BMP, URI #### [facility] [address] [place] [address] Molasses Preparer: William Ayala DO NRBC Automated NOT REPORTED Normal [facility] Comment on above: Performed By: #### F KLLC, C3, C4, ANAX, PE, IFX, PHEP #### [address] [address] Molasses Preparer: Rohan Mitchell MD #### BRICE MENDOZA, URI #### [facility] [place] [address] Molasses Preparer: William Ayala DO Platelet Estimate NOT REPORTED Normal [facility] Comment on above: Performed By: #### F KLLC, C3, C4, ANAX, PE, IFX, PHEP #### [address] [address] Molasses Preparer: Rohan Mitchell MD #### BRICE MENDOZA, URI #### [facility] [place] [address] Molasses Preparer: William Ayala DO RBC morphology finding Nom (Bld) NOT REPORTED Normal [facility] Comment on above: Performed By: #### F KLLC, C3, C4, ANAX, PE, IFX, PHEP #### [address] [address] Molasses Preparer: Rohan Mitchell MD #### BRICE MENDOZA, URI #### [facility] [place] [address] Molasses Preparer: William Ayala DO WBC Morphology NOT REPORTED Normal [facility] Comment on above: Performed By: #### F KLLC, C3, C4, ANAX, PE, IFX, PHEP #### [address] [address] Molasses Preparer: Rohan Mitchell MD #### BRICE MENDOZA, URI #### [facility] [address] [place] [address] Molasses Preparer: William Aylaa DO Chloride, Random UrineOrdere d By: Pratik Miranda on 10-23-2020 Chloride, Ur 147 mmol/L [facility] Work Phone: Comment on above: No normal range esta blished. Chloride,Random Uron 021 Chloride [Moles/Vol] 147 mmol/L Normal [facility] Comment on above: Result Comment: No n ormal range established. Performed By: #### F KLLC, C3, C4, ANAX, PE, IFX, PHEP #### [address] [address] Molasses Preparer: Rohan Mitchell MD #### CDP, BMP, URI #### [facility] [address] [place] [address] Molasses Preparer: William Ayala DO Free Gering + Lambdaon 2020 Free Gering Lt Chains 1.93 mg/dL Normal 0.37-1.94 [facility] Comment on above: Performed By: #### F KLLC, C3, C4, ANAX, PE, IFX, PHEP #### [address] [address] Molasses Preparer: Rohan Mitchell MD #### CDP, BMP, URI #### [facility] [address] [place] [address] Molasses Preparer: William Ayala DO Free Gering/Lambda Rat 1.35 Normal 0.26-1.65 [facility] Comment on above: Performed By: #### F KLLC, C3, C4, ANAX, PE, IFX, PHEP #### [address] [address] Molasses Preparer: Rohan Mitchell MD #### CDP, BMP, URI #### [facility] [address] [place] [address] Molasses Preparer: William Ayala DO Free Lambda Lt Chains 1.43 mg/dL Normal 0.57-2.63 [facility] Comment on above: Performed By: #### F KLLC, C3, C4, ANAX, PE, IFX, PHEP #### [address] [address] Molasses Preparer: Rohan Mitchell MD #### REJI, BMP, URI #### [facility] [address] [place] [address] Molasses Preparer: William Ayala DO Hepatitis Acute [facility] 10-23 Hep A Ab,IgM Non-Reactive Normal [facility] [facility] Comment on above: Performed By: #### F KLLC, C3, C4, ANAX, PE, IFX, PHEP #### [address] [address] Molasses Preparer: oRhan Mitchell MD #### REJI, BMP, URI #### [facility] [address] [place] [address] Molasses Preparer: William Ayala DO Hep B Core Ab,IgM Non-Reactive Normal [facility] Comment on above: Performed By: #### F KLLC, C3, C4, ANAX, PE, IFX, PHEP #### [address] [address] Molasses Preparer: Rohan Mitchell MD #### CDP, BMP, URI #### [facility] [address] [place] [address] Molasses Preparer: William Ayala DO Hep B Surf Ag Non-Reactive Normal NR [facility] Comment on above: Performed By: #### F KLLC, C3, C4, ANAX, PE, IFX, PHEP #### [facility] [employer] [address] [place] [address] Molasses Preparer: Rohan Mitchell MD #### BRICE MENDOZA, URI #### [facility] [address] [place] [address] Molasses Preparer: William Ayala DO Hep C Ab Non-Reactive Normal NR [facility] Comment on above: Result Comment: The [...] C3, C4, ANAX, PE, IFX, PHEP #### [address] [place] [address] Molasses Preparer: Rohan Mitchell MD #### BRICE MENDOZA, URI #### [facility] [place] [address] Molasses Preparer: William Ayala DO Hepatitis Panel, AcuteOrdere d By: Pratik Miranda on 10-23-2020 HAV IgM IA Qn (S) Non-Reactive NONREACTIVE [facility] [employer] Phone: Hep B Core Ab, IgM Non-Reactive NONREACTIVE [facility] [employer] Phone: Hepatitis B Surface Ag Non-Reactive NONREACTIVE [facility] [employer] Phone: Hepatitis C Ab Non-Reactive NONREACTIVE [facility] [employer] Phone: Comment on above: The hepatitis C [...] recommended by ordering HCV RNA by PCR. [employer] Phone: Gering/Lambda Free Lt Chains, Serum QuantOrdered By: Pratik Miranda on 10-23-2020 Free Gering/Lambda Ratio 1.35 [employer] Phone: Gering Free Light Chains QNT 1.93 mg/dL 0.37 - 1.94 mg/dL [employer] Phone: Lambda Free Light Chains QNT 1.43 mg/dL 0.57 - 2.63 mg/dL [employer] Phone: [employer] Phone: No Panel InformationOrdered By: Pratik Miranda on 10-23-2020 [employer] Phone: [employer] Phone: [employer] Phone: Prot. Electroph, Blon 2020 Protein [Mass/Vol] 6.6 g/dL Normal 6.4-8.3 [facility] Comment on above: Performed By: #### F KLLC, C3, C4, ANAX, PE, IFX, PHEP #### [facility] [employer] [address] [place] [address] [id number] Molasses Preparer: Rohan Mitchell MD #### BRICE MENDOZA, URI #### [facility] [address] [place] [address] Molasses Preparer: William Ayala DO Prot. Electroph, Uron 2020 Total Protein Conc. 11 mg/dL Normal [facility] Comment on above: Performed By: #### F KLLC, C3, C4, ANAX, PE, IFX, PHEP #### [address] [id number] Molasses Preparer: Rohan Mitchell MD #### BRICE MENDOZA, URI #### [facility] [address] [place] [address] Molasses Preparer: William Ayala DO Type of Specimen .URINE Normal [facility] Comment on above: Performed By: #### F KLLC, C3, C4, ANAX, PE, IFX, PHEP #### [address] [place] [address] Molasses Preparer: Rohan Mitchell MD #### BRICE MENDOZA, URI #### [facility] [place] [address] Molasses Preparer: William Ayala DO Protein / creatinine ratio, urineOrdered By: Pratik Miranda on 10-23-2020 Creatinine, Ur 129.7 mg/dL 39.0 - 259.0 mg/dL [facility] [employer] Phone: Protein (U) [Mass/Vol] 10 mg/dL [facility] [employer] Phone: Comment on above: No normal range esta blished. Urine Total Protein Creatinine Ratio 0.08 [facility] [employer] Phone: [facility] [employer] Phone: Protein,Tot,[place] Uron 2020 Creatinine [Mass/Vol] 129.7 mg/dL Normal 39.0-259.0 [facility] Comment on above: Performed By: #### F KLLC, C3, C4, ANAX, PE, IFX, PHEP #### [facility] [employer] [facility] [place] [address] Molasses Preparer: Rohan Mitchell MD #### BRICE MENDOZA, URI #### [facility] [place] [address] Molasses Preparer: William Ayala DO Tot Prot. Conc. 10 mg/dL Normal [facility] Comment on above: Result Comment: No n ormal range established. Performed By: #### F KLLC, C3, C4, ANAX, PE, IFX, PHEP #### [address] [address] Molasses Preparer: Rohan Mitchell MD #### REJI, BMP, URI #### [facility] [address] [place] [address] Molasses Preparer: William Ayala DO TP/Cre Ratio 0.08 Normal 0.00-0.20 [facility] Comment on above: Performed By: #### F KLLC, C3, C4, ANAX, PE, IFX, PHEP #### [address] [address] Molasses Preparer: Rohan Mitchell MD #### REJI, BMP, URI #### [facility] [address] [place] [address] Molasses Preparer: William Ayala DO Sodium, Random Uron 10-24-19 Sodium (U) [Moles/Vol] 134 mmol/L Normal [facility] Comment on above: Result Comment: No n ormal range established. Performed By: #### F KLLC, C3, C4, ANAX, PE, IFX, PHEP #### [address] [address] Molasses Preparer: Rohan Mitchell MD #### REJI, BMP, URI #### [facility] [address] [place] [address] Molasses Preparer: William Ayala DO Sodium, urine, randomOrdered By: Pratik Miranda on 10-23-2020 Sodium (U) [Moles/Vol] 134 mmol/L [facility] Work Phone: Comment on above: No normal range esta blished. Uric Acidon 10-23-2020 Urate [Mass/Vol] 4.7 mg/dL Normal 3.4-7.[address] [facility] Comment on above: Performed By: #### F KLLC, C3, C4, ANAX, PE, IFX, PHEP #### [address] [address] Molasses Preparer: Rohan Mitchell MD #### CDP, BMP, URI #### [facility] [address] [place] [address] Molasses Preparer: William Ayala DO Uric AcidOrdered By: Pratik Miranda on 10-23-2020 Urate [Mass/Vol] 4.7 mg/dL 3.4 - 7.0 mg/dL [facility] Work Phone: Urinalysis w/ Microon 7 ----- Normal [facility] Comment on above: Performed By: #### F KLLC, C3, C4, ANAX, PE, IFX, PHEP #### [address] [address] Molasses Preparer: Rohan Mitchell MD #### CDP, BMP, URI #### [facility] [place] [address] Molasses Preparer: William Ayala DO Bacteria FEW Abnormal NONE [facility] Comment on above: Performed By: #### F KLLC, C3, C4, ANAX, PE, IFX, PHEP #### [address] [address] Molasses Preparer: Rohan Mitchell MD #### CDP, BMP, URI #### [facility] [address] [place] [address] Molasses Preparer: William Ayala DO Epithelial cells LM Ql (Urine sed) 0 TO 2 Normal [facility] Comment on above: Performed By: #### F KLLC, C3, C4, ANAX, PE, IFX, PHEP #### [address] [address] Molasses Preparer: Rohan Mitchell MD #### CDP, BMP, URI #### [facility] [place] [address] Molasses Preparer: William Ayala DO Urine RBC's 5 TO 10 Normal [facility] Comment on above: Performed By: #### F KLLC, C3, C4, ANAX, PE, IFX, PHEP #### [address] [address] Molasses Preparer: Rohan Mitchell MD #### CDP, BMP, URI #### [facility] [address] [place] [address] Molasses Preparer: William Ayala DO Urine WBC's 2 TO 5 Normal [facility] Comment on above: Performed By: #### F KLLC, C3, C4, ANAX, PE, IFX, PHEP #### [address] [address] Molasses Preparer: Rohan Mitchell MD #### CDP, BMP, URI #### [facility] [address] [place] [address] Molasses Preparer: William Ayala DO Bilirubin, SemiQt,Ur Negative Normal NEG [facility] Comment on above: Performed By: #### F KLLC, C3, C4, ANAX, PE, IFX, PHEP #### [address] [address] Molasses Preparer: Rohan Mitchell MD #### CDP, BMP, URI #### [facility] [address] [place] [address] Molasses Preparer: William Ayala DO Blood, Urine Negative Normal NEG [facility] Comment on above: Performed By: #### F KLLC, C3, C4, ANAX, PE, IFX, PHEP #### [address] [address] Molasses Preparer: Rohan Mitchell MD #### REJI, BRICE, URI #### [facility] [address] [place] [address] Molasses Preparer: William Ayala DO Clarity (U) CLEAR Normal CLEAR [facility] Comment on above: Performed By: #### F KLLC, C3, C4, ANAX, PE, IFX, PHEP #### [address] [address] Molasses Preparer: Rohan Mitchell MD #### REJI, BRICE, URI #### [facility] [address] [place] [address] Molasses Preparer: William Ayala DO Color (U) YELLOW Normal YEL [facility] Comment on above: Performed By: #### F KLLC, C3, C4, ANAX, PE, IFX, PHEP #### [address] [address] Molasses Preparer: Rohan Mitchell MD #### REJI, BRICE, URI #### [facility] [address] [place] [address] Molasses Preparer: William Ayala DO Glucose Ql (U) 3+ Abnormal NEG [facility] Comment on above: Performed By: #### F KLLC, C3, C4, ANAX, PE, IFX, PHEP #### [address] [address] Molasses Preparer: Rohna Mitchell MD #### REJI, BMP, URI #### [facility] [address] [place] [address] Molasses Preparer: William Ayala DO Ketones Ql (U) Negative Normal NEG [facility] Comment on above: Performed By: #### F KLLC, C3, C4, ANAX, PE, IFX, PHEP #### [address] [address] Molasses Preparer: Rohan Mitchell MD #### CDP, BMP, URI #### [facility] [address] [place] [address] Molasses Preparer: William Ayala DO Leukocyte esterase Test strip Ql (U) Negative Normal NEG [facility] Comment on above: Performed By: #### F KLLC, C3, C4, ANAX, PE, IFX, PHEP #### [address] [address] Molasses Preparer: Rohan Mitchell MD #### CDP, BMP, URI #### [facility] [address] [place] [address] Molasses Preparer: William Ayala DO Nitrite,Ur Negative Normal NEG [facility] Comment on above: Performed By: #### F KLLC, C3, C4, ANAX, PE, IFX, PHEP #### [address] [address] Molasses Preparer: Rohan Mitchell MD #### CDP, BMP, URI #### [facility] [address] [place] [address] Molasses Preparer: William Ayala DO PH,Ur 6.0 Normal 5.0-8.0 [facility] Comment on above: Performed By: #### F KLLC, C3, C4, ANAX, PE, IFX, PHEP #### [address] [address] Molasses Preparer: Rohan Mitchell MD #### CDP, BMP, URI #### [facility] [address] [place] [address] Molasses Preparer: William Ayala DO Protein Ql (U) Negative Normal NEG [facility] Comment on above: Performed By: #### F KLLC, C3, C4, ANAX, PE, IFX, PHEP #### [address] [address] Molasses Preparer: Rohan Mitchell MD #### CDP, BMP, URI #### [facility] [address] [place] [address] Molasses Preparer: William Ayala DO Spec. [place],Ur 1.027 Normal 1.000-1.030 [facility] Comment on above: Performed By: #### F KLLC, C3, C4, ANAX, PE, IFX, PHEP #### [address] [address] Molasses Preparer: Rohan Mitchell MD #### CDP, BMP, URI #### [facility] [place] [address] Molasses Preparer: William Ayala DO Urobilinogen,Ur Normal Normal NORM [facility] Comment on above: Performed By: #### F KLLC, C3, C4, ANAX, PE, IFX, PHEP #### [address] [address] Molasses Preparer: Rohan Mitchell MD #### CDP, BMP, URI #### [facility] [address] [place] [address] Molasses Preparer: William Ayala DO Amorphous sediment LM Ql (Urine sed) NOT REPORTED Normal NONE [facility] Comment on above: Performed By: #### F KLLC, C3, C4, ANAX, PE, IFX, PHEP #### [address] [address] Molasses Preparer: Rohan Mitchell MD #### CDP, BMP, URI #### [facility] [address] [place] [address] Molasses Preparer: William Ayala DO Casts NOT REPORTED Normal [facility] Comment on above: Performed By: #### F KLLC, C3, C4, ANAX, PE, IFX, PHEP #### [address] [address] Molasses Preparer: Rohan Mitchell MD #### CDP, BMP, URI #### [facility] [place] [address] Molasses Preparer: William Ayala DO Comment NOT REPORTED Normal [facility] Comment on above: Performed By: #### F KLLC, C3, C4, ANAX, PE, IFX, PHEP #### [address] [address] Molasses Preparer: Rohan Mitchell MD #### CDP, BMP, URI #### [facility] [address] [place] [address] Molasses Preparer: William Ayala DO Crystals LM Nom (Urine sed) NOT REPORTED Normal NONE [facility] Comment on above: Performed By: #### F KLLC, C3, C4, ANAX, PE, IFX, PHEP #### [address] [address] Molasses Preparer: Rohan Mitchell MD #### CDP, BMP, URI #### [facility] [address] [place] [address] Molasses Preparer: William Ayala DO Epithelial, Renal NOT REPORTED Normal 0 [facility] Comment on above: Performed By: #### F KLLC, C3, C4, ANAX, PE, IFX, PHEP #### [address] [address] Molasses Preparer: Rohan Mitchell MD #### BRICE MENDOZA, URI #### [facility] [place] [address] Molasses Preparer: William Ayala DO Mucus Strands NOT REPORTED Normal NONE [facility] Comment on above: Performed By: #### F KLLC, C3, C4, ANAX, PE, IFX, PHEP #### [address] [address] Molasses Preparer: Rohan Mitchell MD #### BRICE MENDOZA, URI #### [facility] [address] [place] [address] Molasses Preparer: William Ayala DO Other Observations NOT REPORTED Normal NREQ [facility] Comment on above: Performed By: #### F KLLC, C3, C4, ANAX, PE, IFX, PHEP #### [address] [address] Molasses Preparer: Rohan Mitchell MD #### REJI, BRICE, URI #### [facility] [address] [place] [address] Molasses Preparer: William Ayala DO Trichomonas NOT REPORTED Normal NONE [facility] Comment on above: Performed By: #### F KLLC, C3, C4, ANAX, PE, IFX, PHEP #### [address] [address] Molasses Preparer: Rohan Mitchell MD #### BRICE MENDOZA, URI #### [facility] [address] [place] [address] Molasses Preparer: William Ayala DO Yeast NOT REPORTED Normal NONE [facility] Comment on above: Performed By: #### F KLLC, C3, C4, ANAX, PE, IFX, PHEP #### [employer] [place] [address] Molasses Preparer: Rohan Mitchell MD #### CDP, BMP, URI #### [employer] [facility] [address] [place] [address] Molasses Preparer: William Ayala, Urinalysis with MicroscopicO rdered By: Pratik Miranda on 10-23-2020 - [employer] Work Phone: Amorphous, UA NOT REPORTED None [employer] Work Phone: Bacteria, UA FEW Abnormal None [employer] Work Phone: Bilirubin Urine Negative NEGATIVE [employer] Phone: Casts UA NOT REPORTED /LPF [employer] Work Phone: Color, UA YELLOW YELLOW [employer] Work Phone: Crystals, UA NOT REPORTED None /HPF [employer] Work Phone: Epithelial Cells UA 0 TO 2 /HPF [employer] Work Phone: Glucose, Ur 3+ Abnormal NEGATIVE [employer] Phone: Interpretation and review of laboratory results Abnormal [employer] Work Phone: Ketones Ql (U) Negative NEGATIVE [employer] Work Phone: Leukocyte esterase Test strip Ql (U) Negative NEGATIVE [employer] Work Phone: Mucus, UA NOT REPORTED None [employer] Work Phone: Nitrite, Urine Negative NEGATIVE [employer] Work Phone: Other Observations UA NOT REPORTED NOT REQ. [employer] Work Phone: pH, UA 6.0 [employer] Work Phone: Protein, UA Negative NEGATIVE [employer] Phone: RBC, UA 5 TO 10 /HPF [facility] Work Phone: Renal Epithelial, UA NOT REPORTED 0 /HPF [facility] [employer] Work Phone: Specific [place], UA 1.027 [employer] Work Phone: Trichomonas, UA NOT REPORTED None [facility] Work Phone: Turbidity UA CLEAR CLEAR [facility] Work Phone: Urinalysis Comments NOT REPORTED [facility] [employer] Work Phone: Urine Hgb Negative NEGATIVE [facility] Phone: Urobilinogen, Urine Normal Normal [facility] [employer] Phone: WBC, UA 2 TO 5 /HPF [facility] Phone: Yeast, UA NOT REPORTED None [facility] Phone: [facility] Phone: Cult,Urineon 09-26-2020 Cult,Urine Specimen Description .CLEAN CATCH URINE Special Requests NOT REPORTED Culture NO GROWTH Report Status FINAL 09/26/2020 Normal [facility] Comment on above: Performed By: #### U RC #### [facility] [employer] [address] [place] [address] Molasses Preparer: Rohan Mitchell MD [facility] [address] [place] [address] Molasses Preparer: Scot Ochoa MD Basic Metabolic PanelOrdered By: William Golden on 09-25-2020 Anion gap [Moles/Vol] 10 mmol/L 9 - 17 mmol/L [facility] Phone: Calcium [Mass/Vol] 9.6 mg/dL 8.6 - 10. 4 mg/dL [employer] Phone: Chloride [Moles/Vol] 104 mmol/L 98 - 10 7 mmol/L [employer] Phone: CO2 [Moles/Vol] 26 mmol/L 20 - 31 mmol/L [employer] Phone: Creatinine [Mass/Vol] 1.28 mg/dL High 0.70 - 1.20 mg/dL [employer] Phone: GFR >60 >60 mL/min [employer] Phone: GFR Non- 57 mL/min Low >60 [employer] Phone: Glucose [Mass/Vol] 231 mg/dL High 70 - 99 mg/dL [employer] Phone: Interpretation and review of laboratory results Abnormal [employer] Phone: Potassium [Moles/Vol] 5.0 mmol/L 3.7 - 5.3 mmol/L [employer] Phone: Sodium [Moles/Vol] 140 mmol/L 135 - 144 mmol/L [employer] Phone: Urea nitrogen (BldV) [Mass/Vol] 21 mg/dL 8 - 23 mg/dL [employer] Phone: Urea nitrogen/Creatinine (Bld) [Mass ratio] 16 [employer] Phone: [employer] Phone: Basic Metabolic Profon 09-25 (cont.) Normal [facility] Comment on above: Result Comment: Aver age GFR for 60-69 years old: 85 mL/min/1.73sq m Chronic Kidney Disease: <60 mL/min/1.73sq m Kidney failure: <15 mL/min/1.73sq m eGFR calculated using average adult body mass. Additional eGFR calculator available at: http://www.MyMundus/multiple_crcl_2011.htm Performed By: #### B MP #### [facility] [address] [place], [place] [id number] Molasses Preparer: Scot Ochoa MD Anion gap [Moles/Vol] 10 mmol/L Normal 9-17 [facility] Comment on above: Performed By: #### B MP #### [facility] [address] [place], [place] [phone] Molasses Preparer: Scot Ochoa MD BUN/CRE Ratio 16 Normal 9-20 [facility] Comment on above: Performed By: #### B MP #### [facility] [address] [place], [place] 1595[address] Molasses Preparer: Scot Ochoa MD Calcium [Mass/Vol] 9.6 mg/dL Normal 8.6-10.4 [facility] Comment on above: Performed By: #### B MP #### [facility] [address] [place], [place] 7[address] Molasses Preparer: Scot Ochoa MD Chloride [Moles/Vol] 104 mmol/L Normal 98-107 [facility] Comment on above: Performed By: #### B MP #### [facility] [address] [place], [place] [phone] Molasses Preparer: Scot Ochoa MD CO2 [Moles/Vol] 26 mmol/L Normal 20-31 [facility] Comment on above: Performed By: #### B MP #### [facility] [address] [place], [place] [phone] Molasses Preparer: Scot Ochoa MD Creatinine [Mass/Vol] 1.28 mg/dL High 0.70-1.20 [facility] Comment on above: Performed By: #### B MP #### [facility] [address] [place], [place] 10[address] Molasses Preparer: Scot Ochoa MD GFR, Amer >60 Normal >60 [facility] Comment on above: Performed By: #### B MP #### [facility] [address] [place], [place] [phone] Molasses Preparer: Scot Ochoa MD GFR,non Amer 57 mL/min Low >60 [facility] Comment on above: Performed By: #### B MP #### [facility] [address] [place], [place] [address] Molasses Preparer: Scot Ochoa MD Glucose [Mass/Vol] 231 mg/dL High 70-99 [facility] Comment on above: Performed By: #### B MP #### [facility] [address] [place], [place] [phone] Molasses Preparer: Scot Ochoa MD Potassium [Moles/Vol] 5.0 mmol/L Normal 3.7-5.3 [facility] Comment on above: Performed By: #### B MP #### [facility] [address] [place], [place] [phone] Molasses Preparer: Scot Ochoa MD Sodium [Moles/Vol] 140 mmol/L Normal 135-144 [facility] Comment on above: Performed By: #### B MP #### [address] [place], [place] [address] Molasses Preparer: Scot Ochoa MD Staging: Normal [facility] Comment on above: Result Comment: Stag e 1: Some kidney damage normal GFR Stage 2: Mild kidney damage GFR 60-89 Stage 3: Moderate kidney damage GFR 30-59 Stage 4: Severe kidney damage GFR 15-29 Stage 5: Severe kidney damage GFR <15 ESRD - chronic treatment by dialysis or transplant Performed By: #### B MP #### [facility] [address] [place], [place] [phone] Molasses Preparer: Scot Ochoa MD Urea nitrogen [Mass/Vol] 21 mg/dL Normal 8-23 [facility] Comment on above: Performed By: #### B MP #### [facility] [address] [place] [address] Molasses Preparer: Scot Ochoa MD Laboratory - Chemistry and C hemistry - challengeOrdered By: William Golden on 09-25-2020 GFR/1.73 sq M.predicted MDRD (S/P/Bld) [Vol rate/Area] [facility] Work Phone: Comment on above: Average GFR for 60-6 9 years old: 85 mL/min/1.73sq m Chronic Kidney Disease: <60 mL/min/1.73sq m Kidney failure: <15 mL/min/1.73sq m eGFR calculated using average adult body mass. Additional eGFR calculator available at: http://www.MyMundus/multiple_crcl_2012.htm Stage 1: Some kidney damage normal GFR Stage 2: Mild kidney damage GFR 60-89 Stage 3: Moderate kidney damage GFR 30-59 Stage 4: Severe kidney damage GFR 15-29 Stage 5: Severe kidney damage GFR <15 ESRD - chronic treatment by dialysis or transplant Urinalysis w/ Microon 2020 ----- Normal [facility] Comment on above: Performed By: #### U AMIC #### [facility] [address] [place] [address] [place] [address] Molasses Preparer: Scot Ohcoa MD Bilirubin, SemiQt,Ur Negative Normal NEG [facility] Comment on above: Performed By: #### U AMIC #### [facility] [facility] [address] [place] [address] [place] [address] Molasses Preparer: Scot Ochoa MD Blood, Urine TRACE Abnormal NEG [facility] Comment on above: Performed By: #### U AMIC #### [facility] [address] [place] [address] [place] [address] Molasses Preparer: Scot Ochoa MD Clarity (U) CLEAR Normal CLEAR [facility] Comment on above: Performed By: #### U AMIC #### [facility] [address] [place] [address] Molasses Preparer: Scot Ochoa MD Color (U) YELLOW Normal YEL [facility] Comment on above: Performed By: #### U AMIC #### [facility] [address] [place], [place] [id number] Molasses Preparer: Scot Ochoa MD Epithelial cells LM Ql (Urine sed) 0 TO 2 Normal 0-5 [facility] Comment on above: Performed By: #### U AMIC #### [facility] [address] [place], [place] [id number] Molasses Preparer: Scot Ochoa MD Glucose Ql (U) 3+ Abnormal NEG [facility] Comment on above: Performed By: #### U AMIC #### [facility] [address] [place] [address] [place] [place], [place] [id number] Molasses Preparer: Scot Ochoa MD Ketones Ql (U) Negative Normal NEG [facility] Comment on above: Performed By: #### U AMIC #### [facility] [address] [place] [address] [place] [place], [place] 1088683 Molasses Preparer: Scot Ochoa MD Leukocyte esterase Test strip Ql (U) Negative Normal NEG [facility] Comment on above: Performed By: #### U AMIC #### [facility] [address] [place] [address] [place] [place], [place] [id number] Molasses Preparer: Scot Ochoa MD Nitrite,Ur Negative Normal NEG [facility] Comment on above: Performed By: #### U AMIC #### [facility] [address] [place], [place] 4470483 Molasses Preparer: Scot Ochoa MD PH,Ur 6.0 Normal 5.0-9.0 [facility] Comment on above: Performed By: #### U AMIC #### [facility] [address] [place], [place] [id number] Molasses Preparer: Scot Ochoa MD Protein Ql (U) Negative Normal NEG [facility] Comment on above: Performed By: #### U AMIC #### [facility] [address] [place], [place] [id number] Molasses Preparer: Scot Ochoa MD Spec. [place],Ur 1.025 High 1.010-1.020 [facility] Comment on above: Performed By: #### U AMIC #### [facility] [address] [place], [place] 8165383 Molasses Preparer: Scot Ochoa MD Urine RBC's None Normal 0-2 [facility] Comment on above: Performed By: #### U AMIC #### [facility] [address] [place], [place] 0[address]83 Molasses Preparer: Scot Ochoa MD Urine WBC's None Normal 0-5 [facility] Comment on above: Performed By: #### U AMIC #### [facility] [address] [place], [place] [id number] Molasses Preparer: Scot Ochoa MD Urobilinogen,Ur Normal Normal NORM [facility] Comment on above: Performed By: #### U AMIC #### [facility] [address] [place] [address] [place] [place], [place] 2455783 Molasses Preparer: Scot Ochoa MD Amorphous sediment LM Ql (Urine sed) NOT REPORTED Normal NONE [facility] Comment on above: Performed By: #### U AMIC #### [facility] [address] [place], [place] [id number] Molasses Preparer: Scot Ochoa MD Bacteria NOT REPORTED Normal NONE [facility] Comment on above: Performed By: #### U AMIC #### [facility] [address] [place], [place] 9384783 Molasses Preparer: Scot Ochoa MD Casts NOT REPORTED Normal [facility] Comment on above: Performed By: #### U AMIC #### [facility] [address] [place] [id number] Molasses Preparer: Scot Ochoa MD Comment NOT REPORTED Normal [facility] Comment on above: Performed By: #### U AMIC #### [facility] [address] [place], [place] [id number] Molasses Preparer: Scot Ochoa MD Crystals LM Nom (Urine sed) NOT REPORTED Normal NONE [facility] Comment on above: Performed By: #### U AMIC #### [facility] [address] [place], [place] 1181183 Molasses Preparer: Scot Ochoa MD Epithelial, Renal NOT REPORTED Normal 0 [facility] Comment on above: Performed By: #### U AMIC #### [facility] [address] [place], [place] 6594783 Molasses Preparer: Scot Ochoa MD Mucus Strands NOT REPORTED Normal [facility] Comment on above: Performed By: #### U AMIC #### [facility] [address] [place], [place] 4125183 Molasses Preparer: Scot Ochoa MD Other Observations NOT REPORTED Normal NREQ [facility] Comment on above: Performed By: #### U AMIC #### [facility] [address] [place], [place] [id number] Molasses Preparer: Scot Ochoa MD Trichomonas NOT REPORTED Normal NONE [facility] Comment on above: Performed By: #### U AMIC #### [facility] [address] [place], [place] [id number] Molasses Preparer: Scot Ochoa MD Yeast NOT REPORTED Normal [facility] Comment on above: Performed By: #### U AMIC #### [facility] [address] [place], [place] [phone] Molasses Preparer: Scot Ochoa MD Urinalysis with MicroscopicO rdered By: William Golden on 09-25-2020 - [facility] Work Phone: Amorphous, UA NOT REPORTED None [employer] Work Phone: Bacteria, UA NOT REPORTED None [employer] Work Phone: Bilirubin Urine Negative NEGATIVE [employer] Work Phone: Casts UA NOT REPORTED /LPF [employer] Work Phone: Color, UA YELLOW YELLOW [employer] Work Phone: Crystals, UA NOT REPORTED None /HPF [facility] Work Phone: Epithelial Cells UA 0 TO 2 [employer] Work Phone: Glucose, Ur 3+ Abnormal NEGATIVE [employer] Work Phone: Interpretation and review of laboratory results Abnormal [employer] Work Phone: Ketones Ql (U) Negative NEGATIVE [employer] Work Phone: Leukocyte esterase Test strip Ql (U) Negative NEGATIVE [employer] Work Phone: Mucus, UA NOT REPORTED None [employer] Work Phone: Nitrite, Urine Negative NEGATIVE [employer] Work Phone: Other Observations UA NOT REPORTED NOT REQ. [facility] Work Phone: pH, UA 6.0 [facility] Work Phone: [phone] Protein, UA Negative NEGATIVE [employer] Work Phone: RBC, UA None [facility] Work Phone: Renal Epithelial, UA NOT REPORTED 0 /HPF [employer] Work Phone: Specific [place], UA 1.025 High [employer] Work Phone: Trichomonas, UA NOT REPORTED None [employer] Work Phone: Turbidity UA CLEAR CLEAR [facility] Work Phone: Urinalysis Comments NOT REPORTED [facility] [employer] Phone: Urine Hgb TRACE Abnormal NEGATIVE [facility] [employer] Phone: Urobilinogen, Urine Normal Normal [facility] [employer] Phone: WBC, UA None [facility] Phone: Yeast, UA NOT REPORTED None [facility] Phone: [facility] Phone: XR ABDOMEN (KUB) (SINGLE AP VIEW)on [...] Jamie Quispe MD 09/25/20 Final result Normal [facility] XR ABDOMEN (KUB) (SINGLE AP VIEW)Ordered By: William Golden on 09-25-2020 Moderate amount of retained stool in the colon. No extra skeletal calcifications are identified. [facility] Phone: EXAMINATION: ONE SUP INE XRAY VIEW(S) OF THE ABDOMEN 09/25/2020 2:15 pm COMPARISON: None. HISTORY: ORDERING SYSTEM PROVIDED HISTORY: Renal calculus FINDINGS: Moderate amount of retained stool in the colon. Unremarkable bowel gas pattern. No evidence for obstruction. No extra skeletal calcifications are identified. [facility] Phone: [place], Mhpn Incoming Radiant Results From [employer]/mojio - 09/25/2020 4:08 PM EDT EXAMINATION: ONE SUPINE XRAY VIEW(S) OF THE ABDOMEN 09/25/2020 2:15 pm COMPARISON: None. HISTORY: ORDERING SYSTEM PROVIDED HISTORY: Renal calculus FINDINGS: Moderate amount of retained stool in the colon. Unremarkable bowel gas pattern. No evidence for obstruction. No extra skeletal calcifications are identified. IMPRESSION: Moderate amount of retained stool in the colon. No extra skeletal calcifications are identified. [facility] Work Phone: [facility] Work Phone: Cult,Urineon 2019 Cult,Urine Specimen Description .VOIDED URINE Special Requests NOT REPORTED Culture NO GROWTH Report Status FINAL 12/06/2019 Normal [facility] Comment on above: Performed By: #### U #### [facility] [address] [place], [place] [phone] Molasses Preparer: Rohan Mitchell MD [facility] [address] [facility] [place] [address] Molasses Preparer: Hector Jarrett MD Basic Metabolic Panelon 11-07 Anion gap [Moles/Vol] 10 mmol/L 9 - 17 mmol/L [place] Bun/Cre Ratio 13 [place] Calcium [Mass/Vol] 10.1 mg/dL 8.6 - 10. 4 mg/dL [place] Chloride [Moles/Vol] 98 mmol/L 98 - 10 7 mmol/L [place] CO2 [Moles/Vol] 28 mmol/L 20 - 31 mmol/L [place] Creatinine [Mass/Vol] 1.39 mg/dL High 0.7 - 1.2 mg/dL [place] GFR >60 >60 mL/min [place], [place] GFR Non- 52 mL/min Low >60 [place] Glucose [Mass/Vol] 245 mg/dL High 70 - 99 mg/dL [place] Interpretation and review of laboratory results Abnormal [place] Potassium [Moles/Vol] 4.9 mmol/L 3.7 - 5.3 mmol/L [place] Sodium [Moles/Vol] 136 mmol/L 135 - 144 mmol/L [place] Urea nitrogen [Mass/Vol] 18 mg/dL 6 - 20 mg/dL [facility] [place], [place] Basic Metabolic Profon 12-04 (cont.) Normal [facility] Comment on above: Result Comment: Aver age GFR for 50-59 years old: 93 mL/min/1.73sq m Chronic Kidney Disease: <60 mL/min/1.73sq m Kidney failure: <15 mL/min/1.73sq m eGFR calculated using average adult body mass. Additional eGFR calculator available at: http://www.MyMundus/multiple_crcl_2012.htm Performed By: #### B YOMI, CDP #### [facility] [address] [place] [address] Molasses Preparer: Hector Jarrett MD Anion gap [Moles/Vol] 10 mmol/L Normal 9-17 [facility] Comment on above: Performed By: #### B YOMI, CDP #### [facility] [address] [place], [place] 4664383 Molasses Preparer: Hector Jarrett MD BUN/CRE Ratio 13 Normal 9-20 [facility] Comment on above: Performed By: #### B YOMI, CDP #### [facility] [address] [place], [place] 9493183 Molasses Preparer: Hector Jarrett MD Calcium [Mass/Vol] 10.1 mg/dL Normal 8.6-10.4 [facility] Comment on above: Performed By: #### B YOMI, CDP #### [facility] [address] [place], [place] 9951283 Molasses Preparer: Hector Jarrett MD Chloride [Moles/Vol] 98 mmol/L Normal 98-107 [facility] Comment on above: Performed By: #### B YOMI, CDP #### [facility] [address] [place] [address] Molasses Preparer: Hector Jarrett MD CO2 [Moles/Vol] 28 mmol/L Normal 20-31 [facility] Comment on above: Performed By: #### B YOMI, CDP #### [facility] [address] [place], [place] 978[address] Molasses Preparer: Hector Jarrett MD Creatinine [Mass/Vol] 1.39 mg/dL High 0.70-1.20 [facility] Comment on above: Performed By: #### B MP, CDP #### [facility] [address] [place] [address] Molasses Preparer: Hector Jarrett MD GFR, Amer >60 Normal >60 [facility] Comment on above: Performed By: #### B MP, CDP #### [facility] [address] [place] [address] Molasses Preparer: Hector Jarrett MD GFR,non Amer 52 mL/min Low >60 [facility] Comment on above: Performed By: #### B MP, CDP #### [facility] [address] [place] [address] Molasses Preparer: Hector Jarrett MD Glucose [Mass/Vol] 245 mg/dL High 70-99 [facility] Comment on above: Performed By: #### B MP, CDP #### [facility] [address] [place] [address] Molasses Preparer: Hector Jarrett MD Potassium [Moles/Vol] 4.9 mmol/L Normal 3.7-5.3 [facility] Comment on above: Performed By: #### B MP, CDP #### [facility] [address] [place] [address] Molasses Preparer: Hector Jarrett MD Sodium [Moles/Vol] 136 mmol/L Normal 135-144 [facility] Comment on above: Performed By: #### B MP, CDP #### [facility] [address] [place] [address] Molasses Preparer: Hector Jarrett MD Staging: Normal [facility] Comment on above: Result Comment: Stag e 1: Some kidney damage normal GFR Stage 2: Mild kidney damage GFR 60-89 Stage 3: Moderate kidney damage GFR 30-59 Stage 4: Severe kidney damage GFR 15-29 Stage 5: Severe kidney damage GFR <15 ESRD - chronic treatment by dialysis or transplant Performed By: #### B MP, CDP #### [facility] [address] [place] [address] Molasses Preparer: Hector Jarrett MD Urea nitrogen [Mass/Vol] 18 mg/dL Normal 6-20 [facility] Comment on above: Performed By: #### B MP, CDP #### [facility] [address] [place] [address] Molasses Preparer: Hector Jarrett MD CBC Auto Differentialon 11-07 Basophils (Bld) [#/Vol] 0.06 10*3/uL [place] Basophils/100 WBC (Bld) 1 % 0 - 2 % [place] Differential Type NOT REPORTED [place] Eosinophils (Bld) [#/Vol] 0.33 10*3/uL [place] Eosinophils/100 WBC (Bld) 3 % 1 - 4 % [place] Erythrocyte distribution width (RBC) [Ratio] 13.0 % 11.8 - 14.4 % [place] Hematocrit (Bld) [Volume fraction] 40.7 % 40.7 - 50.3 % [place] Hemoglobin (Bld) [Mass/Vol] 13.7 g/dL 13 - 17 g/dL [place] Immature granulocytes (Bld) [#/Vol] 0.05 10*3/uL [place] Immature granulocytes (Bld) [#/Vol] 1 % High 0 [place] Interpretation and review of laboratory results Abnormal [place] Lymphocytes (Bld) [#/Vol] 3.53 10*3/uL [place] Lymphocytes/100 WBC (Bld) 36 % 24 - 43 % [place] MCH (RBC) [Entitic mass] 32.9 pg 25.2 - 33.5 pg [place] MCHC (RBC) [Mass/Vol] 33.7 g/dL 28.4 - 34.8 g/dL [place] MCV (RBC) [Entitic vol] 97.8 fL 82.6 - 102.9 fL [place] Monocytes (Bld) [#/Vol] 0.78 10*3/uL [place] Monocytes/100 WBC (Bld) 8 % 3 - 12 % [place] Platelet mean volume (Bld) [Entitic vol] 8.6 fL 8.1 - 13.5 fL [place] Platelets (Bld) [#/Vol] NOT REPORTED [place] Platelets (Bld) [#/Vol] 239 10*3/uL [place] RBC (Bld) [#/Vol] 4.16 10*6/uL Low 4.21 - 5.7 7 m/uL [place] RBC morphology finding Nom (Bld) NOT REPORTED [place] Segmented neutrophils/100 WBC (Bld) 51 % 36 - 65 % [place] Segs Absolute 5.18 [place] WBC (Bld) [#/Vol] 9.9 10*3/uL [place] WBC (Bld) [#/Vol] 0.0 10*3/uL 0.0 per 10 0 WBC [place] WBC Morphology NOT REPORTED [place] CBC with Diffon 12-05-2019 Abs. Basophil 0.06 k/uL Normal 0.00-0.20 [facility] Comment on above: Performed By: #### B OYMI, CDP #### [facility] [address] [place] [address] Molasses Preparer: Hector Jarrett MD Abs.Imm.Granulocyte 0.05 k/uL Normal 0.00-0.30 [facility] Comment on above: Performed By: #### B YOMI, CDP #### [facility] [address] [place] [address] Molasses Preparer: Hector Jarrett MD Abs.Neutrophil (Seg) 5.18 k/uL Normal 1.50-8.10 [facility] Comment on above: Performed By: #### B MP, CDP #### [address] [place] [address] Molasses Preparer: Hector Jarrett MD Basophils/100 WBC (Bld) 1 % Normal 0-2 [facility] Comment on above: Performed By: #### B MP, CDP #### [address] [place], [place] 8942783 Molasses Preparer: Hector Jarrett MD Eosinophils (Bld) [#/Vol] 0.33 10*3/uL Normal 0.00-0.44 [facility] Comment on above: Performed By: #### B YOMI, CDP #### [address] [place], [place] [id number] Molasses Preparer: Hector Jarrett MD Eosinophils/100 WBC (Bld) 3 % Normal 1-4 [facility] Comment on above: Performed By: #### B YOMI, CDP #### [address] [place] [address] Molasses Preparer: Hector Jarrett MD Erythrocyte distribution width (RBC) [Ratio] 13.0 % Normal 11.8-14.4 [facility] Comment on above: Performed By: #### B YOMI, CDP #### [address] [place], [place] 2313383 Molasses Preparer: Hector Jarrett MD Hematocrit (Bld) [Volume fraction] 40.7 % Normal 40.7-50.3 [facility] Comment on above: Performed By: #### B MP, CDP #### [address] [place] [address] Molasses Preparer: Hector Jarrett MD Hemoglobin (Bld) [Mass/Vol] 13.7 g/dL Normal 13.0-17.0 [facility] Comment on above: Performed By: #### B MP, CDP #### [facility] [address] [place], [place] 0650283 Molasses Preparer: Hector Jarrett MD Immature granulocytes/100 WBC (Bld) 1 % High 0 [facility] Comment on above: Performed By: #### B MP, CDP #### [facility] [address] [place], [facility] Molasses Preparer: Hector Jarrett MD Lymphocytes (Bld) [#/Vol] 3.53 10*3/uL Normal 1.10-3.70 [facility] Comment on above: Performed By: #### B MP, CDP #### [facility] [address] [place], [place] 0822883 Molasses Preparer: Hector Jarrett MD Lymphocytes/100 WBC (Bld) 36 % Normal 24-43 [facility] Comment on above: Performed By: #### B MP, CDP #### [address] [place], [place] 1479283 Molasses Preparer: Hector Jarrett MD MCH (RBC) [Entitic mass] 32.9 pg Normal 25.2-33.5 [facility] Comment on above: Performed By: #### B MP, CDP #### [address] [place], [place] 2287583 Molasses Preparer: Hector Jarrett MD MCHC (RBC) [Mass/Vol] 33.7 g/dL Normal 28.4-34.8 [facility] Comment on above: Performed By: #### B MP, CDP #### [facility] [address] [place], [place] 9437883 Molasses Preparer: Hector Jarrett MD MCV (RBC) [Entitic vol] 97.8 fL Normal 82.6-102.9 [facility] Comment on above: Performed By: #### B MP, CDP #### [facility] [address] [place], [place] 0888683 Molasses Preparer: Hector Jarrett MD Monocytes (Bld) [#/Vol] 0.78 10*3/uL Normal 0.10-1.20 [facility] Comment on above: Performed By: #### B MP, CDP #### [facility] [address] [place], [place] 9008983 Molasses Preparer: Hector Jarrett MD Monocytes/100 WBC (Bld) 8 % Normal 3-12 [facility] Comment on above: Performed By: #### B MP, CDP #### [facility] [address] [place], [facility] Molasses Preparer: Hector Jarrett MD Neutrophil (Seg) 51 % Normal 36-65 [facility] Comment on above: Performed By: #### B MP, CDP #### [facility] [address] [place], [place] [address] Molasses Preparer: Hector Jarrett MD NRBC Automated 0.0 per 100 WBC Normal 0.0 [facility] Comment on above: Performed By: #### B MP, CDP #### [address] [place], [place] 3552583 Molasses Preparer: Hector Jarrett MD Platelet mean volume (Bld) [Entitic vol] 8.6 fL Normal 8.1-13.5 [facility] Comment on above: Performed By: #### B MP, CDP #### [facility] [address] [place], [place] 7[address]83 Molasses Preparer: Hector Jarrett MD Platelets (Bld) [#/Vol] 239 10*3/uL Normal 138-453 [facility] Comment on above: Performed By: #### B MP, CDP #### [facility] [address] [place], [place] 5379683 Molasses Preparer: Hector Jarrett MD RBC (Bld) [#/Vol] 4.16 10*6/uL Low 4.21-5.77 [facility] Comment on above: Performed By: #### B MP, CDP #### [facility] [address] [place], [place] 3577783 Molasses Preparer: Hector Jarrett MD WBC (Bld) [#/Vol] 9.9 10*3/uL Normal 3.5-11.3 [facility] Comment on above: Performed By: #### B MP, CDP #### [facility] [address] [place], [place] 1232683 Molasses Preparer: Hector Jarrett MD Auto Diff Performed NOT REPORTED Normal [facility] Comment on above: Performed By: #### B MP, CDP #### [facility] [address] [place], [place] 484[address]83 Molasses Preparer: Hector Jarrett MD Platelet Estimate NOT REPORTED Normal [facility] Comment on above: Performed By: #### B MP, CDP #### [facility] [address] [place], [place] 79[address] Molasses Preparer: Hector Jarrett MD RBC morphology finding Nom (Bld) NOT REPORTED Normal [facility] Comment on above: Performed By: #### B MP, CDP #### [facility] [address] [place], [place] 288[address]83 Molasses Preparer: Hector Jarrett MD WBC Morphology NOT REPORTED Normal [facility] Comment on above: Performed By: #### B MP, CDP #### [facility] [address] [place], [place] 3787283 Molasses Preparer: Hector Jarrett MD CT ABDOMEN PELVIS WO [...] Merrick Dejesus MD 12/05/19 Final result Normal [facility] CT ABDOMEN PELVIS WO CONTRAS T Additional Contrast? Noneon 12-05-2019 1. No acute intra-abdominal or intrapelvic process. Specifically, no evidence of obstructive uropathy on the current study. 2. There are multiple nonobstructing bilateral kidney stones as above. 3. Dominant lower pole left renal cyst is unchanged. 4. Normal appendix. [facility], [place] EXAMINATION: [facility] ABDOMEN AND PELVIS WITHOUT CONTRAST 12/05/2019 [...] Tissues: No acute osseous abnormalities are identified. [facility] [place], [place], Mhpn Incoming Radiant Results From [employer]/mojio - 12/05/2019 3:03 PM EDT EXAMINATION: CT [...] renal cyst is unchanged. 4. Normal appendix. [place], [place] Metabolic Panelon 12-05-2019 GFR/1.73 sq M predicted among non-blacks MDRD (S/P/Bld) [Vol rate/Area] [place], [place] Comment on above: Average GFR for 50-5 9 years old: 93 mL/min/1.73sq m Chronic Kidney Disease: <60 mL/min/1.73sq m Kidney failure: <15 mL/min/1.73sq m eGFR calculated using average adult body mass. Additional eGFR calculator available at: http://www.saperatec.FastCall/multiple_crcl_2012.htm Stage 1: Some kidney damage normal GFR Stage 2: Mild kidney damage GFR 60-89 Stage 3: Moderate kidney damage GFR 30-59 Stage 4: Severe kidney damage GFR 15-29 Stage 5: Severe kidney damage GFR <15 ESRD - chronic treatment by dialysis or transplant Urinalysis w/ Microon 07-29- 2020 ----- Normal [facility] Comment on above: Performed By: #### U AMIC #### [facility] [address] [place] [address] Molasses Preparer: Hector Jarrett MD Acetoacetic Acid,Ur Negative Normal NEG [facility] Comment on above: Performed By: #### U AMIC #### [facility] [address] [place] [address] Molasses Preparer: Hector Jarrett MD Bacteria TRACE Abnormal [facility] Comment on above: Performed By: #### U AMIC #### [facility] [address] [place] [address] Molasses Preparer: Hector Jarrett MD Bilirubin, SemiQt,Ur Negative Normal NEG [facility] Comment on above: Performed By: #### U AMIC #### [facility] [address] [place], [place] [id number] Molasses Preparer: Hector Jarrett MD Color (U) YELLOW Normal YEL [facility] Comment on above: Performed By: #### U AMIC #### [facility] [address] [place], [place] 17[address]83 Molasses Preparer: Hector Jarrett MD Epithelial cells LM Ql (Urine sed) None Normal 0-5 [facility] Comment on above: Performed By: #### U AMIC #### [facility] [address] [place] [address] Molasses Preparer: Hector Jarrett MD Glucose Ql (U) 3+ Abnormal NEG [facility] Comment on above: Performed By: #### U AMIC #### [facility] [address] [place] [address] Molasses Preparer: Hector Jarrett MD Hemoglobin, Ur Negative Normal [facility] Comment on above: Performed By: #### U AMIC #### [facility] [address] [place], [place] [id number] Molasses Preparer: Hector Jarrett MD Leukocyte esterase Test strip Ql (U) Negative Normal NEG [facility] Comment on above: Performed By: #### U AMIC #### [facility] [address] [place], [place] [id number] Molasses Preparer: Hector Jarrett MD Nitrite,Ur Negative Normal NEG [facility] Comment on above: Performed By: #### U AMIC #### [facility] [address] [place], [place] [id number] Molasses Preparer: Hector Jarrett MD PH,Ur 6.0 Normal 5.0-9.0 [facility] Comment on above: Performed By: #### U AMIC #### [facility] [address] [place], [place] [id number] Molasses Preparer: Hector Jarrett MD Protein Ql (U) Negative Normal NEG [facility] Comment on above: Performed By: #### U AMIC #### [facility] [address] [place], [place] [id number] Molasses Preparer: Hector Jarrett MD Spec. [place],Ur 1.020 Normal 1.010-1.020 [facility] Comment on above: Performed By: #### U AMIC #### [facility] [address] [place], [facility] Molasses Preparer: Hector Jarrett MD Turbidity CLEAR Normal CLEAR [facility] Comment on above: Performed By: #### U AMIC #### [facility] [address] [place], [place] [id number] Molasses Preparer: Hector Jarrett MD Urine RBC's 0 TO 2 Normal 0-2 [facility] Comment on above: Performed By: #### U AMIC #### [facility] [address] [place], [place] [id number] Molasses Preparer: Hector Jarrett MD Urine WBC's 0 TO 2 Normal 0-5 [facility] Comment on above: Performed By: #### U AMIC #### [facility] [address] [place] [address] Molasses Preparer: Hector Jarrett MD Urobilinogen,Ur Normal Normal NORM [facility] Comment on above: Performed By: #### U AMIC #### [facility] [address] [place], [facility] Molasses Preparer: Hector Jarrett MD Amorphous sediment LM Ql (Urine sed) NOT REPORTED Normal NONE [facility] Comment on above: Performed By: #### U AMIC #### [facility] [address] [place] [address] Molasses Preparer: Hector Jarrett MD Casts NOT REPORTED Normal [facility] Comment on above: Performed By: #### U AMIC #### [facility] [address] [place] [id number] Molasses Preparer: Hector Jarrett MD Comment NOT REPORTED Normal [facility] Comment on above: Performed By: #### U AMIC #### [facility] [address] [place] [id number] Molasses Preparer: Hector Jarrett MD Crystals LM Nom (Urine sed) NOT REPORTED Normal [facility] Comment on above: Performed By: #### U AMIC #### [facility] [address] [place], [facility] Molasses Preparer: Hector Jarrett MD Epithelial, Renal NOT REPORTED Normal 0 [facility] Comment on above: Performed By: #### U AMIC #### [facility] [address] [place] [address] Molasses Preparer: Hector Jarrett MD Mucus Strands NOT REPORTED Normal [facility] Comment on above: Performed By: #### U AMIC #### [facility] [address] [place] [address] Molasses Preparer: Hector Jarrett MD Other Observations NOT REPORTED Normal NREQ [facility] Comment on above: Performed By: #### U AMIC #### [facility] [address] [place] [address] Molasses Preparer: Hector Jarrett MD Trichomonas NOT REPORTED Normal NONE [facility] Comment on above: Performed By: #### U AMIC #### [facility] [address] [place] [address] Molasses Preparer: Hector Jarrett MD Yeast NOT REPORTED Normal [facility] Comment on above: Performed By: #### U AMIC #### [facility] [address] [place] [address] Molasses Preparer: Hector Jarrett MD Urinalysis with Microscopico n 12-05-2019 Amorphous, UA NOT REPORTED None [place], [place] Bacteria, UA TRACE Abnormal None [place] Bilirubin Urine Negative NEGATIVE [place] Casts UA NOT REPORTED /LPF [place] Color, UA YELLOW YELLOW [place] Crystals, UA NOT REPORTED None /HPF [place] Epithelial Cells UA None [place] Glucose, Ur 3+ Abnormal NEGATIVE [place] Interpretation and review of laboratory results Abnormal [place] Ketones Ql (U) Negative NEGATIVE [place] Leukocyte esterase Test strip Ql (U) Negative NEGATIVE [place] Mucus, UA NOT REPORTED None [place] Nitrite, Urine Negative NEGATIVE [place] Other Observations UA NOT REPORTED NOT REQ. M [place] pH, UA 6.0 [place] Protein (U) [Mass/Vol] Negative NEGATIVE [place] RBC (U) [#/Vol] 0 TO 2 [place] Renal Epithelial, UA NOT REPORTED 0 /HPF Me [place], [place] Specific [place], UA 1.020 [place], [place] Trichomonas, UA NOT REPORTED None [facility], [place] Turbidity UA CLEAR CLEAR [place] Urinalysis Comments NOT REPORTED [facility] Urine Hgb Negative NEGATIVE [place] Urobilinogen, Urine Normal Normal [place] WBC, UA 0 TO 2 [place] Yeast, UA NOT REPORTED None [facility] [facility] CARDIAC STRESS/REST INJE CTIONon 07-19-2019 [facility] CARDIAC STRESS/REST INJECTION Patient Name: ROXANE BONNER STUDY: MYOCARDIAL PERFUSION STRESS TEST WITH EXERCISE [facility], [address], [address], [place] [address] [facility] Provider: GARRETT KAISER PCP: Dr. Kimani CRAWLEY Supervising provider: PALAK PALMA INDICATION: ABN FUNCTION STUDY,ASCVD W/O ANGINA HISTORY: Gender: M; Age: 58 y/o ; Height: 162.56 cm; Weight: 91.3094397 kg. DM HTN High Cholesterol; Family HX CAD; Currently smoking. PTCA on 2011. COMPARISON: Previous nuclear testing completed [id number] at . ACCESSION NUMBER(S): [id number]; [id number]; [id number] ORDERING CLINICIAN: BRIDGET MUNOZ TECHNIQUE: ONE DAY [...] Electronically signed by: MILDRED PALMA MD Normal [facility] Cult,Urine,CCon 01-30-2018 Cult,Urine,CC Specimen Description .CLEAN CATCH URINE Special Requests NOT REPORTED Culture NO GROWTH Report Status FINAL 01/29/[address] [facility] Comment on above: Performed By: #### C ELIANE ####[facility] [id number] [place] [address] Basic Metabolic Profon 01-28 (cont.) Normal [facility] Comment on above: Result Comment: Aver age GFR for 50-59 years old: 93 mL/min/1.73sq mChronic Kidney Disease: <60 mL/min/1.73sq mKidney failure: <15 mL/min/1.73sq meGFR calculated using average adult body mass. Additional eGFR calculator available at:http://www.saperatec.FastCall/multiple_crcl_2012.htm Anion gap 3 molar conc 15 mmol/L Normal 9-17 [facility] Calcium mass conc 9.4 mg/dL Normal 8.6-10.4 [facility] Chloride molar conc 102 mmol/L Normal 98-[address] [facility] CO2 molar conc 23 mmol/L Normal 20-[address] [facility] Creatinine mass conc 0.89 mg/dL Normal 0.70-1.20 [facility] GFR, Amer >60 Normal >60 [facility] GFR,non Amer >60 Normal >60 [facility] Glucose mass conc 160 mg/dL High 70-99 [facility] Potassium molar conc 3.9 mmol/L Normal 3.7-5.3 [facility] Sodium molar conc 140 mmol/L Normal 135-144 [facility] Urea nitrogen mass conc 15 mg/dL Normal 6-[address] [facility] BUN/CRE Ratio NOT REPORTED Normal 9-[address] [facility] Staging: NOT REPORTED Normal [facility] CBC with Diffon 01-28-2018 Abs. Basophil 0.10 k/uL Normal 0.0-0.[address] [facility] Abs.Neutrophil (Seg) 5.70 k/uL Normal 1.8-7.7 [facility] Basophils/100 WBC Auto (Bld) 1 % Normal 0-[address] [facility] Eosinophils Auto #/vol (Bld) 0.50 10*3/uL High 0.0-0.[address] [facility] Eosinophils/100 WBC Auto (Bld) 5 % High 1-[address] [facility] Erythrocyte distribution width Auto Ratio (RBC) 13.5 % Normal 12.5-15.[address] [facility] Hematocrit Auto Volume Fraction (Bld) 39.6 % Low 41-[address] [facility] Hemoglobin mass conc (Bld) 13.5 g/dL Normal 13.5-17.[address] [facility] Lymphocytes Auto #/vol (Bld) 4.20 10*3/uL Normal 1.0-4.[address] [facility] Lymphocytes/100 WBC Auto (Bld) 36 % Normal 24-[address] [facility] MCH Auto Entitic mass (RBC) 33.1 pg Normal 26-[address] [facility] MCHC Auto mass conc (RBC) 34.2 g/dL Normal 31-[address] [facility] MCV Auto Entitic volume (RBC) 96.9 fL Normal 80-[address] [facility] Monocytes Auto #/vol (Bld) 1.00 10*3/uL Normal 0.1-1.[address] [facility] Monocytes/100 WBC Auto (Bld) 9 % Normal 2-[address] [facility] Neutrophil (Seg) 49 % Normal 36-66 [facility] Platelet mean volume Auto Entitic volume (Bld) 7.4 fL Normal 6.0-12.[address] [facility] Platelets Auto #/vol (Bld) 256 10*3/uL Normal 140-[address] [facility] RBC Auto #/vol (Bld) 4.08 10*6/uL Low 4.5-5.9 [facility] WBC Auto #/vol (Bld) 11.5 10*3/uL High 3.5-11.0 [facility] Abs.Imm.Granulocyte NOT REPORTED Normal 0.00-0.30 [facility] Auto Diff Performed NOT REPORTED Normal [facility] Immature granulocytes #/vol (Bld) NOT REPORTED Normal [address] [facility] NRBC Automated NOT REPORTED Normal [facility] Platelets Auto #/vol (Bld) NOT REPORTED Normal [facility] RBC morphology finding Nom (Bld) NOT REPORTED Normal [facility] WBC Morphology NOT REPORTED Normal [facility] CT ABDOMEN PELVIS WO CONTRAS Ton 01-28-2018 [...] by:Brendan Lawrence MD01/28/18Edited Result - FINAL Normal [facility] Lipaseon 01-28-2018 Lipase enzyme act/vol 25 U/L Normal 13-60 [facility] Liver Profileon 01-28-2018 Albumin mass conc 4.3 g/dL Normal 3.5-5.2 [facility] Albumin/Globulin mass ratio 1.7 {ratio} Normal 1.0-2.[address] [facility] Alkaline Phos 65 U/L Normal 40-[address] [facility] ALT enzyme act/vol 24 U/L Normal 5-[address] [facility] AST enzyme act/vol 21 U/L Normal <[address] [facility] Bilirubin Ql (U) 0.45 mg/dL Normal 0.3-1.2 [facility] Bilirubin, Indirect 0.30 mg/dL Normal 0.00-1.[address] [facility] Bilirubin.direct mass conc 0.15 mg/dL Normal <0.[address] [facility] Protein mass conc 6.9 g/dL Normal 6.4-8.3 [facility] Globulin Calculated mass conc (S) NOT REPORTED Normal 1.5-3.[address] [facility] UA w/Reflex Cultureon 2017 Acetoacetic Acid,Ur TRACE Abnormal NEG [facility] Bilirubin, SemiQt,Ur Negative Normal NEG [facility] Color YELLOW Normal YEL [facility] Glucose,Semi-qnt,Ur Negative Normal NEG [facility] Hemoglobin, Ur LARGE Abnormal NEG [facility] Leuckocyte Esterase SMALL Abnormal NEG [facility] Nitrite,Ur Negative Normal NEG [facility] PH,Ur 6.5 Normal 5.0-8.[address] [facility] Protein, Semi-qnt,Ur 1+ Abnormal NEG [facility] Spec. [place],Ur 1.025 Normal 1.005-1.030 [facility] Turbidity SLIGHTLY CLOUDY Abnormal CLEAR [facility] Urobilinogen,Ur Normal Normal NORM [facility] Comment NOT REPORTED Normal [facility] Urinalysis,Microon 8 ----- Normal [facility] Epithelial cells 0 TO 2 Normal 0-5 [facility] Other Observations Culture ordered base d on defined criteria. Abnormal NREQ [facility] RBC Test strip #/vol (U) 5 TO 10 Normal 0-[address] [facility] Urine WBC's 10 TO 20 Normal 0-[address] [facility] Amorphous Sediment NOT REPORTED Normal NONE [facility] Bacteria NOT REPORTED Normal NONE [facility] Casts NOT REPORTED Normal [facility] Crystals NOT REPORTED Normal NONE [facility] Epithelial, Renal NOT REPORTED Normal [address] [facility] Mucus Strands NOT REPORTED Normal NONE [facility] Trichomonas NOT REPORTED Normal NONE [facility] Yeast NOT REPORTED Normal NONE [facility] Vital Signs Date Time Vital Sign Value Performing Clinician Facility 12-21-2024 15:12-0400 Body height 167.6 cm Grant Lozano DPM Work Phone: [facility] 12-21-2024 15:12-0400 Body mass index (BMI) [Ratio] 31.47 kg/m2 Grant [place] DPM Work Phone: [facility] 12-21-2024 15:12-0400 Body weight 88.45 kg Grant [place] DPM Work Phone: [facility] 12-21-2024 15:12-0400 Respiratory rate 16 /min Grant [place] DPM Work Phone: [facility] 11-27-2024 14:23-0400 Body height 167.6 cm Grant Lozano DPM Work Phone: [facility] 11-27-2024 14:23-0400 Body mass index (BMI) [Ratio] 31.47 kg/m2 Grant [place] DPM Work Phone: [facility] 11-27-2024 14:23-0400 Body weight 88.45 kg Grant Lozano DPM Work Phone: [facility] 11-27-2024 14:23-0400 Respiratory rate 16 /min Grant [place] DPM Work Phone: [facility] 11-05-2024 13:40-0400 Body mass index (BMI) [Ratio] 31.6 kg/m2 Malgorzata Holliday [employer] Work Phone: [facility] 11-05-2024 13:40-0400 Body temperature 98.1 [degF] Malgorzata Holliday [employer] Work Phone: [facility] 11-05-2024 13:40-0400 Body weight 88.81 kg Malgorzata Aichholz [employer] Work Phone: [facility] 11-05-2024 13:40-0400 Diastolic blood pressure 60 mm[Hg] Malgorzata Aichholz [employer]IST Work Phone: [facility] 11-05-2024 13:40-0400 Heart rate 86 /min Malgorzata Aichholz [employer] Work Phone: [facility] 11-05-2024 13:40-0400 Respiratory rate 20 /min Malgorzata Aichholz [employer] Work Phone: [facility] 11-05-2024 13:40-0400 SaO2% (BldA) [Mass fraction] 93 % Malgorzata Aichholz [employer]IST Work Phone: [facility] 11-05-2024 13:40-0400 Systolic blood pressure 98 mm[Hg] Malgorzata Aichholz [employer]IST Work Phone: [facility] 10-02-2024 14:46-0400 Diastolic blood pressure 60 mm[Hg] Malgorzata Aichholz [employer]IST Work Phone: [facility] 10-02-2024 14:46-0400 Systolic blood pressure 100 mm[Hg] Malgorzata Aichholz [employer]IST Work Phone: [facility] 10-02-2024 14:20-0400 Body temperature 97.81 [degF] Malgorzata Aichholz [employer]IST Work Phone: [facility] 10-02-2024 14:20-0400 Heart rate 84 /min Malgorzata Aichholz [employer] Work Phone: [facility] 10-02-2024 14:20-0400 Respiratory rate 20 /min Malgorzata Aichholz [employer] Work Phone: [facility] 10-02-2024 14:20-0400 SaO2% (BldA) [Mass fraction] 95 % Malgorzata Aichholz [employer]IST Work Phone: [facility] 09-25-2024 10:55-0400 Body height 167.6 cm Grant [place] DPM Work Phone: [facility] 09-25-2024 10:55-0400 Body mass index (BMI) [Ratio] 31.96 kg/m2 Grant Brown DPM Work Phone: [facility] 09-25-2024 10:55-0400 Body weight 89.81 kg Grant Brown DPM Work Phone: [facility] 09-25-2024 10:55-0400 Respiratory rate 16 /min Grant Brown DPM Work Phone: [facility] 09-04-2024 09:46-0400 Body height 167.6 cm Grant Brown DPM Work Phone: [facility] 09-04-2024 09:46-0400 Body mass index (BMI) [Ratio] 31.96 kg/m2 Grant Brown DPM Work Phone: [facility] 09-04-2024 09:46-0400 Body weight 89.81 kg Grant Brown DPM Work Phone: [facility] 09-04-2024 09:46-0400 Respiratory rate 16 /min Grant Brown DPM Work Phone: [facility] 08-21-2024 11:25-0400 Body height 167.6 cm Grant Brown DPM Work Phone: [facility] 08-21-2024 11:25-0400 Body mass index (BMI) [Ratio] 31.96 kg/m2 Grant Brown DPM Work Phone: [facility] 08-21-2024 11:25-0400 Body weight 89.81 kg Grant Brown DPM Work Phone: [facility] 08-21-2024 11:25-0400 Respiratory rate 18 /min Grant Brown DPM Work Phone: [facility] 08-06-2024 09:22-0400 Body height 167.6 cm Grant Lozano DPM Work Phone: [facility] 08-06-2024 09:22-0400 Body mass index (BMI) [Ratio] 31.96 kg/m2 Grant Lozano DPM Work Phone: [facility] 08-06-2024 09:22-0400 Body weight 89.81 kg Grant Lozano DPM Work Phone: [facility] 08-06-2024 09:22-0400 Respiratory rate 16 /min Grant Lozano DPM Work Phone: [facility] 06-25-2024 09:00-0500 Body height 167.6 cm Cris Johnson [employer] Work Phone: [facility] 06-25-2024 09:00-0500 Body mass index (BMI) [Ratio] 31.96 kg/m2 Cris Johnson [employer] Work Phone: [facility] 06-25-2024 09:00-0500 Body temperature 97.3 [degF] Cris Johnson [employer] Work Phone: [facility] 06-25-2024 09:00-0500 Body weight 89.81 kg Cris Johnson [employer] Work Phone: [facility] 06-25-2024 09:00-0500 Diastolic blood pressure 74 mm[Hg] Cris Johnson [employer] Work Phone: [facility] 06-25-2024 09:00-0500 Heart rate 73 /min Cris Johnson [employer] Work Phone: [facility] 06-25-2024 09:00-0500 Respiratory rate 18 /min Rcis Johnson [employer] Work Phone: [facility] 06-25-2024 09:00-0500 SaO2% (BldA) [Mass fraction] 97 % Cris Johnson [employer] Work Phone: [facility] 06-25-2024 09:00-0500 Systolic blood pressure 118 mm[Hg] Cris Johnson [employer] Work Phone: [facility] 03-26-2024 08:37-0500 Body height 167.6 cm Cris Johnosn [employer]IST Work Phone: [facility] 03-26-2024 08:37-0500 Body mass index (BMI) [Ratio] 31.64 kg/m2 Cris Johnson [employer] Work Phone: [facility] 03-26-2024 08:37-0500 Body temperature 96.21 [degF] Cris Johnson [employer] Work Phone: [facility] 03-26-2024 08:37-0500 Body weight 88.91 kg Cris Johnson [employer] Work Phone: [facility] 03-26-2024 08:37-0500 Diastolic blood pressure 76 mm[Hg] Cris Johnson [employer] Work Phone: [facility] 03-26-2024 08:37-0500 Respiratory rate 16 /min Cris Johnson [employer] Work Phone: [facility] 03-26-2024 08:37-0500 Systolic blood pressure 120 mm[Hg] Cris Johnson [employer] Work Phone: [facility] 02-13-2024 09:38-0400 Body mass index (BMI) [Ratio] 31.96 kg/m2 Cris Johnson [employer] Work Phone: [facility] 02-13-2024 09:38-0400 Body temperature 97.2 [degF] Cris Johnson [employer] Work Phone: [facility] 02-13-2024 09:38-0400 Body weight 89.81 kg Cris Florespatrick [employer] Work Phone: [facility] 02-13-2024 09:38-0400 Diastolic blood pressure 78 mm[Hg] Cris Florespatrick [employer] Work Phone: [facility] 02-13-2024 09:38-0400 Heart rate 72 /min Cris Florespatrick [employer] Work Phone: [facility] 02-13-2024 09:38-0400 SaO2% (BldA) [Mass fraction] 98 % Cris Florespatrick [employer] Work Phone: [facility] 02-13-2024 09:38-0400 Systolic blood pressure 120 mm[Hg] Cris Johnson [employer] Work Phone: [facility] 01-26-2024 13:08-0400 Body height 167.6 cm Grant Lozano DPM Work Phone: [facility] 01-26-2024 13:08-0400 Body mass index (BMI) [Ratio] 32.77 kg/m2 Grant Lozano DPM Work Phone: [facility] 01-26-2024 13:08-0400 Body weight 92.08 kg Grant Lozano DPM Work Phone: [facility] 01-26-2024 13:08-0400 Diastolic blood pressure 78 mm[Hg] Grant Lozano DPM Work Phone: [facility] 01-26-2024 13:08-0400 Heart rate 75 /min Grant Lozano DPM Work Phone: [facility] 01-26-2024 13:08-0400 Respiratory rate 18 /min Grant Lozano DPM Work Phone: [facility] 01-26-2024 13:08-0400 Systolic blood pressure 115 mm[Hg] Grant Lozano DPM Work Phone: [facility] 01-05-2024 13:06-0400 Body height 162.6 cm Cris Johnson [employer] Work Phone: [facility] 01-05-2024 13:06-0400 Body mass index (BMI) [Ratio] 34.67 kg/m2 Cris Johnson [employer] Work Phone: [facility] 01-05-2024 13:06-0400 Body temperature 98.8 [degF] Cris Johnson [employer] Work Phone: [facility] 01-05-2024 13:06-0400 Body weight 91.63 kg Cris Johnson [employer] Work Phone: [facility] 01-05-2024 13:06-0400 Diastolic blood pressure 70 mm[Hg] Cris Johnson [employer] Work Phone: [facility] 01-05-2024 13:06-0400 Heart rate 69 /min Cris Johnson [employer] Work Phone: [facility] Comment on above: 93% O2 01-05-2024 13:06-0400 Systolic blood pressure 112 mm[Hg] Cris Johnson [employer] Work Phone: [facility] 06-07-2023 14:31-0500 Body height 167.6 cm Jacinto Marcelino DO Work Phone: [facility] 06-07-2023 14:31-0500 Body mass index (BMI) [Ratio] 33.41 kg/m2 Jacinto Marcelino DO Work Phone: [facility] 06-07-2023 14:31-0500 Body weight 93.89 kg Jacinto Marcelino DO Work Phone: [facility] 06-07-2023 14:31-0500 Diastolic blood pressure 56 mm[Hg] Jacinto Marcelino DO Work Phone: [facility] 06-07-2023 14:31-0500 Heart rate 72 /min Jacinto Marcelino DO Work Phone: [facility] 06-07-2023 14:31-0500 Systolic blood pressure 84 mm[Hg] Jacinto Marcelino DO Work Phone: [facility] 09-29-2022 13:05-0400 Body height 167.64 cm [facility] Work Phone: [facility] 250 DO Work Phone: 09-29-2022 13:05-0400 Body mass index (BMI) [Ratio] 33.41 kg/m2 [facility] Work Phone: [facility] 250 DO Work Phone: 09-29-2022 13:05-0400 Body surface area Derived from formula 2.03 m2 [facility] Work Phone: [facility] 250 DO Work Phone: 09-29-2022 13:05-0400 Body weight 93.9 kg [facility] Work Phone: [facility] 250 DO Work Phone: 09-29-2022 13:05-0400 Diastolic blood pressure 72 mm[Hg] [facility] Work Phone: [facility] 250 DO Work Phone: 09-29-2022 13:05-0400 Heart rate 72 /min [facility] Work Phone: [facility] 250 DO Work Phone: 09-29-2022 13:05-0400 Systolic blood pressure 98 mm[Hg] [facility] Work Phone: [facility] 250 DO Work Phone: 08-18-2022 09:45-0400 Body height 167.64 cm [facility] Work Phone: [facility] 250 DO Work Phone: 08-18-2022 09:45-0400 Body mass index (BMI) [Ratio] 33.41 kg/m2 [facility] Work Phone: [facility] 250 DO Work Phone: 08-18-2022 09:45-0400 Body surface area Derived from formula 2.03 m2 [facility] Work Phone: [facility] 250 DO Work Phone: 08-18-2022 09:45-0400 Body weight 93.9 kg [facility] Work Phone: [facility] 250 DO Work Phone: 08-18-2022 09:45-0400 Diastolic blood pressure 88 mm[Hg] [facility] Work Phone: [facility] 250 DO Work Phone: 08-18-2022 09:45-0400 Heart rate 72 /min [facility] Work Phone: [facility] 250 DO Work Phone: 08-18-2022 09:45-0400 Systolic blood pressure 128 mm[Hg] [facility] Work Phone: [facility] 250 DO Work Phone: 09-07-2021 13:58-0400 Diastolic blood pressure 96 mm[Hg] DO [facility] Work Phone: [facility] 09-07-2021 13:58-0400 Heart rate 74 /min DO [facility] Work Phone: [facility] 09-07-2021 13:58-0400 Systolic blood pressure 135 mm[Hg] DO [facility] Work Phone: [facility] 08-18-2021 09:40-0400 Body height 165.1 cm [facility] Work Phone: [facility] 250 DO Work Phone: 08-18-2021 09:40-0400 Body mass index (BMI) [Ratio] 35.64 kg/m2 Roosevelt P [employer] Work Phone: [facility] 250 DO Work Phone: 08-18-2021 09:40-0400 Body surface area Derived from formula 2.04 m2 [facility] Work Phone: [facility] 250 DO Work Phone: 08-18-2021 09:40-0400 Body weight 97.16 kg [facility] Work Phone: [facility] 250 DO Work Phone: 08-18-2021 09:40-0400 Diastolic blood pressure 70 mm[Hg] Roosevelt P [employer] Work Phone: [facility] 250 DO Work Phone: 08-18-2021 09:40-0400 Heart rate 64 /min Roosevelt P [employer] Work Phone: [facility] 250 DO Work Phone: 08-18-2021 09:40-0400 Systolic blood pressure 110 mm[Hg] Roosevelt P [employer] Work Phone: [facility] 250 DO Work Phone: Encounters Encounter Date Encounter Type Care Provider Facility Start: 12-25-2024 End: 12-25-2024 Clinisync Result Encounter Malgorzata Holliday COASTAL AND ESTUARY SPECIALIST Work Phone: [facility] Unsolicited Start: 12-25-2024 End: 12-25-2024 Clinisync Result Encounter Malgorzata Holliday COASTAL AND ESTUARY SPECIALIST Work Phone: [facility] Unsolicited Start: 12-21-2024 End: 12-21-2024 Patient encounter procedure Grant Lozano DPM Work Phone: [facility] Comment on above: Verruca plantaris (P rimary Dx); Foot pain, right; Foot pain, left Start: 12-21-2024 End: 12-21-2024 ambulatory GRANT LOZANO Not Available Start: 12-21-2024 End: 12-21-2024 Bamboo flowsheet Grant Lozano DPM Work Phone: [facility] Start: 12-21-2024 End: 12-21-2024 Bamboo flowsheet Grant Lozano DPM Work Phone: [facility] Start: 12-17-2024 End: 12-18-2024 Refill Malgorzata Mg COASTAL AND ESTUARY SPECIALIST Work Phone: [facility] Comment on above: Type 2 diabetes lady itus with stage 3a chronic kidney disease, without long-term current use of insulin (HCC); Type 2 diabetes mellitus with diabetic polyneuropathy (HCC) Start: 11-27-2024 End: 11-27-2024 ambulatory GRANT LOZANO Not Available Start: 11-27-2024 End: 11-27-2024 Patient encounter procedure Grant Lozano DPM Work Phone: [facility] Comment on above: Verruca plantaris (P rimary Dx); Foot pain, left; Foot pain, right; Type 2 diabetes mellitus with diabetic polyneuropathy, 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); Pain due to onychomycosis of toenails of both feet Start: 11-27-2024 End: 11-27-2024 Bamboo flowsheet Grant Lozano DPM Work Phone: [facility] Start: 11-27-2024 End: 11-27-2024 Bamboo flowsheet Grant Lozano DPM Work Phone: [facility] Start: 11-26-2024 End: 11-26-2024 Refill Malgorzata Aichholz COASTAL AND ESTUARY SPECIALIST Work Phone: [facility] Comment on above: Type 2 diabetes lady itus with diabetic polyneuropathy (HCC) Gastroesophageal ref lux disease without esophagitis Start: 11-13-2024 End: 11-13-2024 Clinisync Result Encounter Malgorzata Holliday COASTAL AND ESTUARY SPECIALIST Work Phone: [facility] External Department Unsolicited Start: 11-13-2024 End: 11-13-2024 Clinisync Result Encounter Malgorzatapeyman Holliday COASTAL AND ESTUARY SPECIALIST Work Phone: [facility] External Department Unsolicited Start: 11-05-2024 End: 11-05-2024 Bamboo flowsheet Keshav A Felter LOADING RACK SUPERVISOR-TURF AND GROUNDS SUPERVISOR Work Phone: [facility] Start: 11-05-2024 End: 11-05-2024 Bamboo flowsheet Keshav A Felter LOADING RACK SUPERVISOR-TURF AND GROUNDS SUPERVISOR Work Phone: [facility] Start: 11-05-2024 End: 11-05-2024 Office outpatient visit 25 minutes Malgorzatapeyman Holliday COASTAL AND ESTUARY SPECIALIST Work Phone: [facility] Comment on above: Type 2 diabetes lady itus with stage 3a chronic kidney disease, without long-term current use of insulin (HCC) (Primary Dx); Chronic obstructive pulmonary disease, unspecified COPD type (HCC); Primary hypertension ; Elevated liver function tests; Obesity (BMI 30-39.9); Tobacco dependence; Esophageal dysphagia Start: 11-05-2024 End: 11-05-2024 ambulatory MALGORZATA AICHHOLZ Not Available Start: 11-05-2024 End: 11-05-2024 Office outpatient new 30 minutes Keshav Morley Felter LOADING RACK SUPERVISOR-TURF AND GROUNDS SUPERVISOR Work Phone: [facility] Comment on above: Psoriasis vulgaris ( Primary Dx); Neoplasm of unspecified behavior of bone, soft tissue, and skin Start: 11-05-2024 End: 11-05-2024 ambulatory KESHAV A FELTER Not Available Start: 10-31-2024 End: 10-31-2024 Clinisync Result Encounter Malgorzata Mg COASTAL AND ESTUARY SPECIALIST Work Phone: [facility] Unsolicited Start: 10-31-2024 End: 10-31-2024 Clinisync Result Encounter Malgorzata Joycelynnerissakyrie BELLO Work Phone: [facility] External Department Unsolicited Start: 10-31-2024 End: 10-31-2024 Orders Only Malgorzata Nixonkyrie COASTAL AND ESTUARY SPECIALIST Work Phone: [facility] Comment on above: Elevated liver funct ion tests (Primary Dx) Start: 10-17-2024 End: 10-17-2024 Orders Only Malgorzata Holliday COASTAL AND ESTUARY SPECIALIST Work Phone: [facility] Comment on above: Open wounds involvin g multiple regions of upper extremity (Primary Dx) Start: 10-02-2024 End: 10-02-2024 Bamboo flowsheet Malgorzata Holliday COASTAL AND ESTUARY SPECIALIST Work Phone: [facility] FM Start: 10-02-2024 End: 10-02-2024 Bamboo flowsheet Malgorzata Holliday COASTAL AND ESTUARY SPECIALIST Work Phone: [facility] Start: 10-02-2024 End: 10-02-2024 Office outpatient visit 25 minutes Malgorzata Holliday COASTAL AND ESTUARY SPECIALIST Work Phone: [facility] Comment on above: Type 2 diabetes lady itus with stage 3a chronic kidney disease, without long-term current use of insulin (HCC) ([facility]) (Primary Dx); Type 2 diabetes mellitus with diabetic polyneuropathy, 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 ([facility]); Atherosclerosis of [place] coronary artery of [place] heart without angina pectoris ([facility]); Chronic heart failure with preserved ejection fraction ([facility]); Primary hypertension ([facility]); Gastroesophageal reflux disease, unspecified whether esophagitis present; CKD (chronic kidney disease), symptom management only, stage 3 (moderate) (HCC) ([facility]); Obesity (BMI 30-39.9); Current every day smoker; BREONNA (generalized anxiety disorder) ([facility]); Mixed hyperlipidemia ([facility]); Tobacco dependence; Prostate cancer screening; Type 2 diabetes mellitus with diabetic polyneuropathy ([facility]); Generalized anxiety disorder ([facility]); Gastroesophageal reflux disease without esophagitis; Hyperlipidemia, unspecified ([facility]) Start: 10-02-2024 End: 10-02-2024 ambulatory MALGORZATA HOLLIDAY [...] diabetes mellitus with diabetic polyneuropathy, unspecified whether nursing home insulin use ([facility]) Start: 09-25-2024 End: 09-25-2024 ambulatory GRANT LOZANO Not Available Start: 09-04-2024 End: 09-04-2024 Bamboo flowsheet Grant Morley Brown DPM Work Phone: [facility] Start: 09-04-2024 End: 09-04-2024 Bamboo flowsheet Grant Peyman Lozano DPM Work Phone: [facility] Start: 09-04-2024 End: 09-04-2024 Office outpatient visit 15 minutes Grant Lozano DPM Work Phone: [facility] Comment on above: Contusion of left fo ot, initial encounter (Primary Dx); Verruca plantaris; Foot pain, left; Foot pain, right; Type 2 diabetes mellitus with diabetic polyneuropathy, 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 ([facility]) Start: 09-04-2024 End: 09-04-2024 ambulatory GRANT LOZANO Not Available Start: 08-21-2024 End: 08-21-2024 Patient encounter procedure Grant Lozano DPM Work Phone: [facility] Comment on above: Verruca plantaris (P rimary Dx); Foot pain, left; Foot pain, right; Hallux rigidus of right foot; Hallux rigidus of left foot; Type 2 diabetes mellitus with diabetic polyneuropathy, 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 ([facility]) Start: 08-21-2024 End: 08-21-2024 ambulatory GRANT LOZANO [...] diabetes mellitus with diabetic polyneuropathy, 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 ([facility]); Pain due to onychomycosis of toenails of both feet; Verruca plantaris; Foot pain, left; Foot pain, right Start: 08-06-2024 End: 08-06-2024 ambulatory GRANT LOZANO Not Available Start: 06-25-2024 End: 06-25-2024 Bamboo flowsheet Cris Goldsteink COASTAL AND ESTUARY SPECIALIST Work Phone: [facility] Start: 06-25-2024 End: 06-25-2024 Bamboo flowsheet Cris Johnson COASTAL AND ESTUARY SPECIALIST Work Phone: [facility] Start: 06-25-2024 End: 06-25-2024 Office outpatient visit 15 minutes Cris Goldsteink COASTAL AND ESTUARY SPECIALIST Work Phone: [facility] Comment on above: Type 2 diabetes lady itus with stage 3a chronic kidney disease, without long-term current use of insulin (HCC) (CMS/HCC) (Primary Dx); Generalized anxiety disorder (CMS/HCC); Type 2 diabetes mellitus with diabetic polyneuropathy (CMS/HCC); Hyperlipidemia, unspecified (CMS/HCC); Primary hypertension (CMS/HCC) Start: 06-25-2024 End: 06-25-2024 ambulatory CRIS JOHNSON Not Available Start: 06-19-2024 End: 06-19-2024 Refill Cris Louistrick COASTAL AND ESTUARY SPECIALIST Work Phone: [facility] Comment on above: Type 2 diabetes lady itus with diabetic polyneuropathy (CMS/HCC) Start: 06-12-2024 End: 06-12-2024 ambulatory [facility] Ambulatory Start: 04-12-2024 End: 04-20-2024 Telephone encounter Grant Lozano DPM Work Phone: [facility] Start: 03-26-2024 End: 03-26-2024 Bamboo flowsheet Cris Johnson COASTAL AND ESTUARY SPECIALIST Work Phone: [facility] Start: 03-26-2024 End: 03-26-2024 Bamboo flowsheet Cris Johnson COASTAL AND ESTUARY SPECIALIST Work Phone: [facility] Start: 03-26-2024 End: 03-26-2024 Office outpatient visit 15 minutes Cris Florespatrick COASTAL AND ESTUARY SPECIALIST Work Phone: [facility] Comment on [...] 2 diabetes lady itus with diabetic polyneuropathy ([facility]) Start: 02-14-2024 End: 02-14-2024 Refill Cris Goldsteink COASTAL AND ESTUARY SPECIALIST Work Phone: [facility] Comment on above: Generalized anxiety disorder ([facility]) Start: 02-13-2024 End: 02-13-2024 Bamboo flowsheet Cris Johnson COASTAL AND ESTUARY SPECIALIST Work Phone: [facility] Start: 02-13-2024 End: 02-13-2024 Bamboo flowsheet Cris Johnson COASTAL AND ESTUARY SPECIALIST Work Phone: [facility] Start: 02-13-2024 End: 02-13-2024 Office outpatient visit 15 minutes Cris Goldsteink COASTAL AND ESTUARY SPECIALIST Work Phone: [facility] Comment on above: Primary hypertension ([facility]) (Primary Dx); Gastroesophageal reflux disease without esophagitis; BREONNA (generalized anxiety disorder) ([facility]); Hx of psoriasis Start: 02-13-2024 End: 02-13-2024 [...] disease, without long-term current use of insulin ([facility]) ([facility]); Hallux rigidus of right foot; Type 2 diabetes mellitus with diabetic polyneuropathy, unspecified whether nursing home insulin use ([facility]) ([facility]); Onychomycosis; Toe pain, bilateral Start: 01-26-2024 End: 01-26-2024 ambulatory GRANT LOZANO Not Available Start: 01-05-2024 End: 01-05-2024 Bamboo flowsheet Cris Johnson COASTAL AND ESTUARY SPECIALIST Work Phone: [facility] Start: 01-05-2024 End: 01-05-2024 Bamboo flowsheet Cris Johnson COASTAL AND ESTUARY SPECIALIST Work Phone: [facility] Start: 01-05-2024 End: 01-05-2024 ambulatory CRIS JOHNSON Not Available Start: 01-05-2024 End: 01-05-2024 Office outpatient visit 25 minutes Cris Johnson COASTAL AND ESTUARY SPECIALIST Work Phone: [facility] Comment on [...] 25 minutes Jacinto Marcelino DO Work Phone: [facility] Comment on above: Atherosclerosis of n ative coronary artery of [place] heart without angina pectoris; Shortness of breath; Anxiety; Obesity (BMI 30-39.9); Type 2 diabetes mellitus without complication, with long-term current use of insulin (CMS/HCC); Current every day smoker Start: 12-14-2022 End: 12-15-2022 ambulatory ROOSEVELT CRAWLEY Facility:[facility] Start: 09-29-2022 Office outpatient vi sit 15 minutes Roosevelt Crawley Work Phone: [facility] 250 DO Work Phone: Start: 08-27-[address] Roosevelt Crawley Facility:[id number] Start: 08-27-2022 End: 08-27-2022 ambulatory Tree Marcelino Facility:[facility] Start: 08-25-2022 End: 08-25-2022 ambulatory Tree Marcelino Facility:[facility] Start: 08-25-2022 End: 08-25-2022 ambulatory DO Roosevelt Crawley Work Phone: [facility] Work Phone: Start: 08-25-2022 End: 08-25-2022 Patient encounter procedure DO Roosevelt Crawley Work Phone: [facility] Work Phone: Start: 08-18-2022 Office outpatient vi sit 25 minutes [facility] Work Phone: [facility] 250 DO Work Phone: Start: 08-18-[address] Roosevelt Crawley Facility:[id number] Start: 04-19-2022 End: 04-20-[address] ROOSEVELT CRAWLEY Facility:H1 Start: 09-17-2021 Chart Update Roosevelt Hernandes e Work Phone: [facility] 250 DO Work Phone: Start: 09-07-2021 End: 09-07-2021 ambulatory Bridget Munoz Facility:[facility] Start: 09-07-2021 End: 09-07-2021 Patient encounter procedure DO Roosevelt Denisa Work Phone: [facility] Start: 08-18-2021 Office outpatient vi sit 25 minutes Roosevelt P [facility] Work Phone: [facility] 250 DO Work Phone: Start: 07-30-2021 End: 07-31-[address] ROOSEVELT CRAWLEY Facility:H1 Start: 02-17-2021 Message [facility] Work Phone: [facility] 250 DO Work Phone: Start: 10-28-2020 End: 10-31-2020 [facility] Start: 10-28-2020 End: 10-30-2020 Subsequent hospital visit by physician [facility] Ultrasound Room [facility] Ultrasound Comment on above: Stage 3a chronic kid china disease (HCC) Start: 10-23-2020 End: 10-24-2020 ambulatory [facility] Start: 10-23-2020 End: 10-23-2020 Subsequent hospital visit by physician [facility] DO Work Phone: [facility] Comment on above: Stage 3a chronic kid china disease (HCC); Nephrolithiasis Start: 09-25-2020 End: 09-26-2020 [facility] Start: 09-25-2020 End: 09-25-2020 Subsequent hospital visit by physician [facility] DO Work Phone: [facility] Laboratory Start: 09-25-2020 End: 09-28-2020 [facility] Start: 09-25-2020 End: 09-27-2020 Subsequent hospital visit by physician Roberto Xr Dr Room 2 [facility] Laboratory Comment on above: Renal calculus; PAULA (acute kidney injury) ([facility]); Dysuria Renal calculus Start: 12-05-2019 End: 12-08-2019 [facility] Start: 12-05-2019 End: 2019 Subsequent hospital visit by physician Roberto Lab Drawing Room [facility] Laboratory Comment on above: Renal colic Start: 04-04-2018 Patient encounter procedure BRIDGET MUNOZ Facility:[id number] Start: 01-28-2018 End: 01-28-2018 Emergency department patient visit JINNY LOPEZ [facility] Procedures Date Procedure Procedure Detail Performing Clinician Start: 12-25-2024 [facility] LIVER PANEL Malgorzata olea COASTAL AND ESTUARY SPECIALIST Work Phone: Start: 11-13-2024 US RIGHT UPPER QUADRANT Malgorzata Holliday COASTAL AND ESTUARY SPECIALIST Work Phone: Start: 11-05-2024 SKIN / NAIL BIOPSY Marisol lie A Felter LOADING RACK SUPERVISOR-TURF AND GROUNDS SUPERVISOR Work Phone: Start: 10-31-2024 ALL CBC WITH AUTO DIFF Malgorzata Mg COASTAL AND ESTUARY SPECIALIST Work Phone: Start: 10-02-2024 Hemoglobin glycosylated a1c Malgorzata Nixonkyrie COASTAL AND ESTUARY SPECIALIST Work Phone: Start: 03-26-2024 Hemoglobin glycosylated a1c Cris Elizabeth COASTAL AND ESTUARY SPECIALIST Work Phone: Start: 04-19-[address] GAGE CRAWLEY Comment on above: Performed By: #### P SAD #### [facility] [address] [place] [address] Dr. Amarjit Sanchez Start: 10-28-2020 Us retroperitoneal [...] dip stick/tabl et reagent auto microscopy William Rinconell LOADING RACK SUPERVISOR - TURF AND GROUNDS SUPERVISOR Work Phone: Start: 09-25-2020 Radiologic exam abdo men 1 view William Rinconell LOADING RACK SUPERVISOR - TURF AND GROUNDS SUPERVISOR Work Phone: Start: 09-25-2020 Basic metabolic pane l calcium total William Rinconell LOADING RACK SUPERVISOR - TURF AND GROUNDS SUPERVISOR Work Phone: Start: 12-05-2019 Culture bacterial quanttative colony count urine WILLIAM GOLDEN Start: 12-05-2019 Urnls dip stick/tabl et reagent auto microscopy William Golden Work Phone: Start: 12-05-2019 Ct abdomen & pelvis w/o contrast material WILLIAM GOLDEN Start: 12-05-2019 Blood count complete auto&auto difrntl wbc WILLIAM GOLDEN Start: 12-05-2019 Ct abdomen & pelvis w/o contrast material William Golden Work Phone: Start: 12-05-2019 Basic metabolic pane l calcium total William Golden Work Phone: Start: 12-05-2019 Blood count complete auto&auto difrntl wbc William Golden Work Phone: Start: 01-28-2018 AMB EXTERNAL REFERRA [...] Start: 01-28-2018 INSERT PERIPHERAL IV DA NALLELY CHENGSTEPHANY Cardiac catheterization Selam les P [employer] Work Phone: Nasal sinus procedure [employer] Work Phone: Operative procedure on hand [facility] [employer] Work Phone: Percutaneous translu luna coronary angioplasty [facility] [employer] Work Phone: Renal lithotripsy [facility] [employer] Work Phone: Surgical procedure Roosevelt P [employer] Work Phone: Comment on above: stent indications; Total colonoscopy [facility] [employer] Work Phone: Plan of Treatment Date Care Activity Detail Author Start: 10-31-2025 Urine screening for protein Diabetes: Urine Protein Screening [facility] Start: 02-12-2025 Screening for malignant neoplasm of colon Colorectal Cancer Screening [facility] Comment on above: Postponed from 1959 (Patient Refus ed) Start: 01-16-2025 End: 01-16-2025 Patient encounter procedure [facility] Start: 01-10-2025 End: 01-10-2025 Patient encounter procedure 01/10/2025 1:30 PM EDT Office Visit [facility] [address] [facility] [address] [place] [address] Grant Lozano DPM [address] [address] [facility] Start: 01-08-2025 End: 01-08-2025 Patient encounter procedure 01/08/2025 1:00 PM EDT Office Visit [facility] [address] [place] [address] Malgorzata Holliday, COASTAL AND ESTUARY SPECIALIST [address] [place] [address] [facility] Start: 01-07-2025 Influenza vaccination Influenza Vaccine (#1) [facility] Start: 01-02-2025 Hemoglobin A1c measurement Diabetes: Hemoglobin A1C [facility] Start: 12-31-2024 End: 12-31-2024 Patient encounter procedure [facility] Start: 12-21-2024 End: 12-21-2024 Patient encounter procedure 12/21/2024 3:20 PM EDT Office Visit [facility] [address] [place] [phone] Grant Lozano DPM [address] [address] Arrived [facility] Comment on above: Arrived Start: 11-27-2024 End: 11-27-2024 Patient encounter procedure 11/27/2024 2:20 PM EDT Office Visit [facility] [address] [place] [phone] Grant Lozano DPM [address] [address] [facility] Start: 11-14-2024 End: 10-31-2025 Hepatic function 2000 panel - Serum or Plasma Hepatic function panel Lab Routine Elevated liver function tests Expected: 11/14/2024 (Approximate), Expires: 10/31/2025 [facility] Work Phone: Comment on above: Expected: 11/14/2024 (Approximate), Expi res: 10/31/2025 Start: 11-14-2024 End: 10-31-2025 Hepatitis 1996 panel - Serum Hepatitis panel, acute Lab Routine Elevated liver function tests Expected: 11/14/2024 (Approximate), Expires: 10/31/2025 [facility] Comment on above: Expected: 11/14/2024 (Approximate), Expi res: 10/31/2025 Start: 11-05-2024 End: 11-05-2025 US Abdomen limited US LIVER Imaging Routine Elevated liver function tests Expected: 11/05/2024 (Approximate), Expires: 11/05/2025 [facility] Work Phone: Comment on above: Expected: 11/05/2024 (Approximate), Expi res: 11/05/2025 Start: 11-05-2024 End: 11-05-2024 Patient encounter procedure 11/05/2024 1:40 PM EDT Office Visit [facility] [address] [place] [id number] Malgorzata Holliday NP [address] [place] [address] [facility] Start: 11-05-2024 End: 11-05-2024 Patient encounter procedure [facility] Comment on above: Open wounds involving multiple regions o f upper extremity Start: 10-22-2024 End: 10-22-2024 Patient encounter procedure 10/22/2024 10:50 AM EDT Office Visit [facility] [address] [place] [phone] Grant Lozano, DPM [address] [address] [facility] Start: 10-15-2024 End: 10-15-2024 Patient encounter procedure 10/15/2024 10:30 AM EDT Office Visit [facility] [address] [place] [phone] Grant Lozano, DPM [address] [address] [facility] Start: 10-09-2024 End: 10-09-2024 Patient encounter procedure 10/09/2024 10:40 AM EDT Office Visit [facility] [address] [place] [phone] Grant Lozano, DPM [address] [address] [facility] Start: 10-02-2024 End: 10-02-2025 CBC W Auto Differential panel - Blood CBC and differential Lab Routine Atherosclerosis of [place] coronary artery of [place] heart without angina pectoris (CMS/HCC) Chronic heart failure with preserved ejection fraction (CMS/HCC) Gastroesophageal reflux disease, unspecified whether esophagitis present Expected: 10/02/2024 (Approximate), Expires: 10/02/2025 [facility] Work Phone: Comment on above: Expected: 10/02/2024 (Approximate), Expi res: 10/02/2025 Start: 10-02-2024 End: 10-02-2025 Comprehensive metabolic 2000 panel - Serum or Plasma Comprehensive metabolic panel Lab Routine Chronic heart failure with preserved ejection fraction (CMS/HCC) Primary hypertension (CMS/HCC) CKD (chronic kidney disease), symptom management only, stage 3 (moderate) (HCC) (CMS/HCC) Obesity (BMI 30-39.9) Mixed hyperlipidemia (CMS/HCC) Expected: 10/02/2024 (Approximate), Expires: 10/02/2025 [facility] Comment on above: Expected: 10/02/2024 (Approximate), Expi res: 10/02/2025 Start: 10-02-2024 End: 10-02-2025 Lipid 1996 panel - Serum or Plasma Lipid panel Lab Routine Mixed hyperlipidemia (CMS/HCC) Expected: 10/02/2024 (Approximate), Expires: 10/02/2025 [facility] Comment on above: Expected: 10/02/2024 (Approximate), Expi res: 10/02/2025 Start: 10-02-2024 End: 10-02-2025 Microalbumin/Creatinine panel in random Urine Microalbumin / creatinine, urine ratio Lab Routine Type 2 diabetes mellitus with diabetic polyneuropathy, 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 (CMS/HCC) Primary hypertension (CMS/HCC) Expected: 10/02/2024 (Approximate), Expires: 10/02/2025 [facility] Comment on above: Expected: 10/02/2024 (Approximate), Expi res: 10/02/2025 Start: 10-02-2024 End: 10-02-2024 Patient encounter procedure [facility] Comment on above: Type 2 diabetes mellitus with diabetic p olyneuropathy, unspecified whether nursing home insulin use (CMS/HCC) (Primary Dx); Atherosclerosis of [place] coronary artery of [place] heart without angina pectoris (CMS/HCC); Chronic heart [...] cancer screening Expected: 10/02/2024 (Approximate), Expires: 10/02/2025 [facility] Comment on above: Expected: 10/02/2024 (Approximate), Expi res: 10/02/2025 Start: 10-02-2024 End: 10-02-2025 Urinalysis complete panel - Urine Urinalysis with reflex microscopic (clean catch) Lab Routine Type 2 diabetes mellitus with diabetic polyneuropathy, 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 (CMS/HCC) Primary hypertension (CMS/HCC) Expected: 10/02/2024 (Approximate), Expires: 10/02/2025 [facility] Comment on above: Expected: 10/02/2024 (Approximate), Expi res: 10/02/2025 Start: 09-25-2024 End: 09-25-2024 Patient encounter procedure [facility] Comment on above: Verruca plantaris (Primary Dx); Foot pain, left; Foot pain, right; Type 2 diabetes mellitus with diabetic polyneuropathy, 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 ([facility]); Contusion of left foot, initial encounter Start: 09-24-2024 End: 09-24-2024 Patient encounter procedure [facility] Start: 09-22-2024 Hemoglobin A1c measurement Diabetes: Hemoglobin A1C [facility] Start: 09-04-2024 End: 09-04-2024 Patient encounter procedure 09/04/2024 10:00 AM EDT Office Visit [facility] [address] [place] [phone] Grant Lozano DPM [address] [address] Verruca plantaris (Primary Dx); Foot pain, left; Foot pain, right; Type 2 diabetes mellitus with diabetic polyneuropathy, 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 ([facility]/HCC) [facility] Comment on above: Verruca plantaris (Primary Dx); Foot pain, left; Foot pain, right; Type 2 diabetes mellitus with diabetic polyneuropathy, unspecified whether nursing home insulin use ([facility]/HCC) Start: 08-21-2024 End: 08-21-2024 Patient encounter procedure 08/21/2024 11:40 AM EDT Office Visit [facility] [address] [place] [phone] Grant Lozano DPM [address] [address] [facility] Start: 06-26-2024 Hemoglobin A1c measurement Diabetes: Hemoglobin A1C [facility] Start: 06-25-2024 End: 06-25-2024 Patient encounter procedure [facility] Comment on above: Arrived Start: 06-12-2024 End: 06-12-2024 Patient encounter procedure 06/12/2024 2:30 PM EST Office Visit [facility] [address] [facility] [address] [place] [phone] Jacinto Marcelino DO [address] [facility] [address] [place] [address] [facility] Start: 05-30-2024 Urine screening for protein Diabetes: Urine Protein Screening [facility] Start: 04-12-2024 End: 04-12-2024 Patient encounter procedure 04/12/2024 1:10 PM EST Office Visit [facility] [address] [place] [phone] Grant Lozano DPM [address] [facility] [address] [place] [address] [facility] Start: 03-26-2024 End: 03-26-2025 Hemoglobin A1c/Hemoglobin.total in Blood Hemoglobin A1c Lab Routine Type 2 diabetes mellitus with stage 3a chronic kidney disease, without long-term current use of insulin ([facility]) ([facility]) Expected: 03/26/2024 (Approximate), Expires: 03/26/2025 [facility] Work Phone: Comment on above: Expected: 03/26/2024 (Approximate), Expi res: 03/26/2025 Start: 03-26-2024 End: 03-26-2024 Patient encounter procedure 03/26/2024 9:00 AM EST Office Visit [facility] [address] [place] [address] Cris Johnson NP [address] [place] [address] [facility] Start: 02-21-2024 Hemoglobin A1c measurement Diabetes: Hemoglobin A1C [facility] Start: 02-13-2024 End: 02-13-2024 Patient encounter procedure [facility] Comment on above: Arrived Start: 01-26-2024 End: 01-26-2024 Patient encounter procedure 01/26/2024 1:20 PM EDT Office Visit [facility] [address] [facility] [address] [place] [address] Grant Lozano, DPLeonard [address] [facility] [address] [place] [address] Type 2 diabetes mellitus with stage 3a chronic kidney disease, without long-term current use of insulin (HCC) ([facility]) [facility] Comment on above: Type 2 diabetes mellitus with stage 3a c hronic kidney disease, without long-term current use of insulin (HCC) ([facility]/HCC) Start: 01-08-2024 Influenza vaccination Influenza Vaccine (#1) [facility] Start: 01-05-2024 End: 01-04-2025 RF Upper gastrointestinal tract and Small bowel Single view W contrast PO FL upper GI double contrast w KUB Imaging Routine Dysphagia, unspecified type Choking due to food (regurgitated), initial encounter Expected: 01/05/2024, Expires: 01/04/2025 [facility] Work Phone: Comment on above: Expected: 01/05/2024, Expires: Start: 03-30-2023 FUV, Provider: Jacinto Marcelino, Status: Junior, Time: 10:20 AM [facility], Provider: Jacinto Marcelino, Status: Junior, Time: 10:20 AM [place] [address] DO Work Phone: Start: 01-07-2023 COVID-19 Vaccine ( season) COVID-19 Vaccine () [facility] Start: 09-29-2022 FUV, Provider: Glenda Gao, Status: Pen, Time: 9:30 AM [facility], Provider: Glenda Gao, Status: Pen, Time: 9:30 AM [facility] [address] [address] DO Work Phone: Start: [facility]-20[facility] Provider: Jacinto Marcelino, Status: Pen, Time: 10:00 AM [facility], Provider: Jacinto Marcelino, Status: Pen, Time: 10:00 AM [facility] [address] 250 DO Work Phone: Start: 08-17-2022 FUV, Provider: Bridget Munoz, Status: Pen, Time: 10:00 AM [facility], Provider: Bridget Munoz, Status: Pen, Time: 10:00 AM [facility] [place] [address] DO Work Phone: Start: 10-23-2021 Creatinine measurement Creatinine monitoring [facility] Phone: Start: 10-23-2021 Potassium monitoring Potassium monitoring [facility] Phone: Start: 09-25-2021 Creatinine measurement Creatinine monitoring [facility] Phone: Start: 09-25-2021 Potassium monitoring Potassium monitoring [facility] Phone: Start: 09-23-2021 End: 09-23-2021 Patient encounter procedure 09/23/2021 Office Visit Urology Ludwig Arango MD [address] [facility], [address] [place] [address] [facility] Start: 09-07-2021 Radionuclide myocardial perfusion stress study NM laura perf SPECT rest & str [facility] Start: 08-21-2021 FUV, Provider: Bridget Munoz, Status: Pen, Time: 9:00 AM [facility], Provider: Bridget Munoz, Status: Pen, Time: 9:00 AM [facility] [address] DO Work Phone: Start: 01-07-2021 Influenza vaccination Flu vaccine (Season Ended) [facility] Phone: Start: 12-04-2020 Creatinine measurement Creatinine monitoring [place], [place] Start: 12-04-2020 Potassium monitoring Potassium monitoring [place], [place] Start: 11-20-2020 End: 11-20-2020 Patient encounter procedure 11/20/2020 Office Visit Nephrology Pratik Miranda MD [address] [place] [address] [phone] [facility] Start: 10-10-2020 End: 10-10-2020 Patient encounter procedure 10/10/2020 Office Visit Nephrology Pratik Miranda MD [address] [place] [address] [phone] [facility] Start: 06-09-2020 End: 06-09-2020 Office Visit 06/09/2020 Office Visit Urology Ludwig Arango MD [address] [place] [address], [address] [place] [address] [phone] [facility] Start: 01-08-2020 Influenza vaccination Flu vaccine (#1) [place] Start: 01-28-2019 Creatinine measurement Creatinine monitoring [place] Start: 01-28-2019 Potassium monitoring Potassium monitoring [place] Start: 12-06-2014 Screening for malignant neoplasm of lung Low dose CT lung screening [place], [place] Start: 12-06-2009 Screening for malignant neoplasm of colon Colon cancer screen colonoscopy [place] Start: 12-06-2009 Shingles Vaccine (1 of 2) Shingles Vaccine (1 of 2) [place] Start: 12-06-2009 Zoster Vaccines (1 of 2) Zoster Vaccines (1 of 2) [facility] Start: 1999 Diabetes screen Diabetes screen [place], [place] Start: 12-06-1981 DTaP/Tdap/Td Vaccines (1 - Tdap) DTaP/Tdap/Td Vaccines (1 - Tdap) [facility] Start: 12-06-1978 DTaP/Tdap/Td vaccine (1 - Tdap) DTaP/Tdap/Td vaccine (1 - Tdap) [place] Start: 12-06-1978 Pneumococcal Vaccine: 65+ Years (1 of 2 - PCV) Pneumococcal Vaccine: 65+ Years (1 of 2 - PCV) [facility] Start: 12-06-1978 Urine screening for protein Diabetes: Urine Protein Screening [facility] Start: 12-06-1977 Hepatitis C screening Hepatitis C Screening [facility] Start: 12-06-1974 HIV screening HIV screen [place] Start: 12-06-1969 Diabetic foot examination Diabetes: Foot Exam [facility] Start: 12-06-1969 Glaucoma screening Diabetes: Retinopathy Screening [facility] Start: 12-06-1969 Lipid panel Lipid screen [place] Start: 12-06-1965 Pneumococcal 0-64 years Vaccine (1 of 1 - PPSV23) Pneumococcal 0-64 years Vaccine (1 of 1 - PPSV23) [place] Start: 12-06-1965 Pneumococcal 0-64 years Vaccine (1 of 2 - PPSV23) Pneumococcal 0-64 years Vaccine (1 of 2 - PPSV23) [facility] Work Phone: Start: 12-06-1965 Pneumococcal Vaccine: Pediatrics (0 to 5 Years) and At-Risk Patients (6 to 64 Years) (1 - PCV) Pneumococcal Vaccine: Pediatrics (0 to 5 Years) and At-Risk Patients (6 to 64 Years) (1 - PCV) [facility] Start: 12-06-1960 MMR Vaccines (1 of 1 - Standard series) MMR Vaccines (1 of 1 - Standard series) [facility] Start: 1959 Hemoglobin A1c measurement Diabetes: Hemoglobin A1C [facility] Start: 1959 Hepatitis C screening Hepatitis C screen [place], [place] Start: 1959 HIV screening HIV Screening [facility] Start: 1959 Lipid panel Lipid Panel [facility] Start: 1959 Medicare Annual Wellness (AWV) Medicare Annual Wellness (AWV) [facility] Start: 1959 Screening for malignant neoplasm of colon [facility] Start: 1959 Yearly Adult Physical Yearly Adult Physical [facility] End: 10-23-2020 DEVONTE Screen with Reflex DEVONTE Screen with Reflex Lab Routine Stage 3a chronic kidney disease (HCC) 1 Occurrences starting 10/23/2020 until 10/23/2020 [facility] Phone: Comment on above: 1 Occurrences starting 10/23/2020 until 10/23/2020 DEVONTE Screen with Reflex DEVONTE Scree n with Reflex Lab Routine Stage 3a chronic kidney disease (HCC) 10/23/2020 8:04 AM EDT [facility] Phone: End: 12-05-2019 Culture, Urine Culture, Urine Microbiology Routine Renal colic 1 Occurrences starting 12/05/2019 until 12/05/2019 [employer] Comment on above: 1 Occurrences starting 12/05/2019 until 12/05/2019 Culture, Urine [employer] End: 09-25-2020 Culture, Urine Culture, Urine Microbiology Routine Dysuria 1 Occurrences starting 09/25/2020 until 09/25/2020 [facility] Phone: Comment on above: 1 Occurrences starting 09/25/2020 until 09/25/2020 Dermatopathology exam Dermatopat hology exam Pathology and Cytology Timed Neoplasm of unspecified behavior of bone, soft tissue, and skin Release Upon Ordering for 1 Occurrences starting 11/05/2024 [employer] Phone: Comment on above: Release Upon Ordering for 1 Occurrences starting 11/05/2024 Electrophoresis Prot ein, Serum without Reflex to Immunofixation Electrophoresis Protein, Serum without Reflex to Immunofixation Lab Routine Stage 3a chronic kidney disease (HCC) 10/23/2020 8:04 AM [employer] Phone: End: 10-23-2020 Immunofixation serum profile Immunofixation serum profile Lab Routine Stage 3a chronic kidney disease (HCC) 1 Occurrences starting 10/23/2020 until 10/23/2020 [facility] Phone: Comment on above: 1 Occurrences starting 10/23/2020 until 10/23/2020 Immunofixation serum profile Immunofixation serum profile Lab Routine Stage 3a chronic kidney disease ([facility]) 10/23/2020 8:04 AM [facility] Work Phone: Protein Electrophore sis, Urine Protein Electrophoresis, Urine Lab Routine Stage 3a chronic kidney disease ([facility]) 10/23/2020 8:05 AM [facility] Work Phone: Immunizations Immunization Date Immunization Notes Care Provider [facility] 02-13-2024 influenza, seasonal, injectable, preservative free Malgorzata Holliday [employer]AL [employer] ESTUARY SPECIALIST Work Phone: [facility] 02-13-2024 influenza virus vaccine, unspecified formulation Malgorzata Holliday [employer]AL AND ESTUARY SPECIALIST Work Phone: [facility] 01-11-2023 influenza, injectabl e, quadrivalent, preservative free Jacinto Marcelino DO Work Phone: [facility] Work Phone: 01-11-2023 influenza virus vaccine, unspecified formulation Cris Johnson COASTAL AND ESTUARY SPECIALIST Work Phone: [facility] 02-20-2022 influenza, injectabl e, quadrivalent, preservative free [facility] Work Phone: [facility] 250 DO Work Phone: 02-20-2022 Pfizer COVID-19 Vac Bivalent 30 MCG/0.3ML Intramuscular Suspension Roosevelt P [place] Work Phone: [facility] 02-20-2022 Pfizer Purple Cap SARS-CoV-2 Jacinto Marcelino DO Work Phone: [facility] Work Phone: 01-16-2021 influenza, injectabl e, quadrivalent, preservative free Roosevelt P [place] Work Phone: [facility] 250 DO Work Phone: 08-21-2020 COVID-19, Pfizer, PF , 30mcg/0.3mL Sr House DO Work Phone: [facility] 07-30-2020 COVID-19, Pfizer, PF , 30mcg/0.3mL Sr House DO Work Phone: [facility] 02-07-2020 influenza virus vaccine, unspecified formulation Roosevelt P House Work Phone: [facility] 250 DO Work Phone: 02-07-2020 influenza, seasonal, injectable Cris Sheridanzpatrick COASTAL AND ESTUARY SPECIALIST Work Phone: [facility] 05-09-2006 influenza virus vaccine, unspecified formulation Roosevelt P House Work Phone: [facility] 250 DO Work Phone: Payers Date Payer Category Payer Medicare MEDICARE [id number] 2024 Medicare [id number] 2023 Medicaid [employer] [place] [id number] 2023-Present [address] [place] [address] [id number] 2023 Private Health Insurance [facility] MEDICA[facility] [id number] 2021 Self-pay [id number] 2018 Unknown DEANNA MANZO [facility] MEDICAID [id number] 2018-Present [phone] CLAIMS DEPARTMENT [address] [place] [address] [id number] 2018 Unknown 2018 Medicaid [id number] 1959 Unknown [id number] 2.16.840.1.484106.3.579.2. 355 1959 Unknown [id number] 2.16840.1.563887.3.579.2. 176 1959 Unknown [id number] 2.16.840.1.818500.3.579.2. 173 1959 Unknown [id number] 2.16.840.1.225256.3.579.2. 173 1959 Unknown [id number] 2.16.840.1.134094.3.579.2. 173 1959 Unknown [id number] 2.16.840.1.083874.3.579.2. 173 1959 Unknown [id number] 2.16.840.1.748942.3.579.2. 173 1959 Unknown [id number] 2.16.840.1.765094.3.579.2. 173 1959 Unknown [id number] 2.16.840.1.577544.3.579.2. 173 1959 Unknown [id number] 2.16.840.1.911081.3.579.2. 173 1959 Unknown [id number] 2.16.840.1.571294.3.579.2. 593 1959 Unknown [id number] 2.16.840.1.652041.3.579.2. 593 1959 Unknown [id number] 2.16.840.1.572220.3.579.2. 356 1959 Unknown [id number] 2.16.840.1.769980.3.579.2. 356 1959 Unknown [id number] 2.16.840.1.259234.3.579.2. 718 1959 Unknown [id number] 2.16840.1.221804.3.579.2. 1244 1959 Unknown [id number] 2.840.1.912138.3.579.2. 1259 1959 Unknown [id number] 2.0.1.914091.3.579.2. 125 1959 Unknown [id number] 2.840.1.790494.3.579.2. 125 1959 Unknown [id number] 2.840.1.793515.3.579.2. 125 1959 Unknown [id number] 2.840.1.517863.3.579.2. 1259 1959 Unknown [id number] 2.840.1.204711.3.579.2. 125 1959 Unknown [id number] 2.840.1.679666.3.579.2. 1259 1959 Unknown [id number] 2.16840.1.962306.3.579.2. 125 1959 Unknown [id number] 2.840.1.912574.3.579.2. 1259 1959 Unknown [id number] 2.840.1.760324.3.579.2. 1259 1959 Unknown [id number] 2.16.840.1.540632.3.579.2. 1259 1959 Unknown [id number] 2.16.840.1.024585.3.579.2. 1259 1959 Unknown [id number] 2.16.840.1.739784.3.579.2. 1259 1959 Unknown [id number] 2.16.840.1.401246.3.579.2. 1259 1959 Unknown [id number] 1.2.840.495824.1.13.239.2. 7.3.597856.315 Private Health Insurance [id number] Unknown [id number] 2.16.840.1.862484.3.579.2. 531 Unknown [id number] 2.16.840.1.575278.3.579.2. 531 Unknown [id number] 2.16.840.1.713885.3.579.2. 531 Social History Date Type Detail Facility Start: 12-05-2019 End: 01-05-2024 Tobacco smoking status COIS Current every day smoker [facility] History of tobacco use Cigarette Smoker [place] Start: 12-05-2019 End: 01-05-2024 Cigarettes smoked current (pack per day) - Reported [facility] Start: 12-05-2019 End: 06-07-2023 Tobacco use and exposure Never used [place] Start: 12-05-2019 End: 12-21-2024 Alcohol intake Current drinker of alcohol (finding) [place] Start: 04-25-2018 Tobacco Comment last smoked at 0530 [place] Start: 01-31-2018 Alcohol Comment rare Emy Mcgill [place] Start: 1960 Sex Assigned At Not on file [place], [place] Start: 1960 Sex Assigned At Male F [facility] Start: 08-25-2022 Tobacco smoking stat us NHIS Smoker (finding) [facility] Start: 06-07-2023 End: 01-05-2024 Tobacco use panel [facility] Start: 06-07-2023 Alcohol Comment occasional beer [facility] Work Phone: Start: 05-28-2023 End: 06-07-2023 Exposure to SARS-CoV-2 (event) Not sure [facility] History of tobacco use Passive smoker [facility] [...] Dates Stent Uret Hydrp l Coat W/O [id number] Start: 02-02-2018 Clinical Notes 10-23-2020 to 12-21-2024 Grant Lozano, JEREMIE - 12/21/2024 3:20 PM EDTGrant Lozano DPM - 11/27/2024 2:20 PM EDTTelephone Encounter - [facility] [place] - 11/26/2024 8:03 AM EDKaylynn Holliday NP - 11/05/2024 2:21 PM EDT Note Date & Type Note Facility 12-21-2024 History of Present illness Narrative Patient: Roxane Bonner : 1960 PCP: Ajay Gates MD SUBJECTIVE Patient presents today for follow up of skin lesion/neoplasm of unknown origin to the left and right foot Pt states that previous treatment of acid tx with some improvement Pt rates pain the pain on a 1-10 scale an intensity of 5 Pt presents today for followup. Positive HX of hallux rigidus b/l. Patient is DM2 with peripheral neuropathy Allergies: Allergies Allergen Reactions Penicillins Sulfa Antibiotics Past Medical History: Past Medical History: Diagnosis Date Chronic diastolic CHF (congestive heart failure) ([facility]) CKD (chronic kidney disease), symptom management only, stage 3 (moderate) ([facility]) DM II (diabetes mellitus, type II), controlled ([facility]) Elevated cholesterol Fracture RT LF BREONNA (generalized anxiety disorder) Heart disease History of medical problems cyst on cheek HLD (hyperlipidemia) Hypertension Kidney stones Neuropathy of foot Smoking Type 2 diabetes mellitus with peripheral neuropathy (HCC) Type 2 diabetes mellitus with stage 3 chronic kidney disease, without long-term current use of insulin, unspecified whether stage 3a or 3b CKD ([facility]) Medications: Current Outpatient Medications: ASPIRIN 81 MG chewable tablet, Chew 81 mg Daily, Disp: , Rfl: Blood Pressure Monitoring (Blood Pressure Cuff) misc, 1 each in the morning and 1 each before bedtime., Disp: 1 each, Rfl: 0 Continuous Glucose Pneudraulic Systems Mechanic (Dexcom G7 Pneudraulic Systems Mechanic) device, 1 each continuously, Disp: 1 each, Rfl: 0 Continuous Glucose Sensor (Dexcom G7 Sensor) misc, 1 each Every 10 (ten) days Change sensor every 10 days1 each Daily Change sensor every 10 days, Disp: 3 each, Rfl: 11 Dulaglutide (Trulicity) 0.75 MG/0.5ML solution auto-injector, Inject 0.75 mg under the skin every 7 (seven) days for 28 days, Disp: 2 mL, Rfl: 1 empagliflozin (Jardiance) 25 MG, Take 1 tablet (25 mg) by mouth Daily, Disp: 90 tablet, Rfl: 1 escitalopram (Lexapro) 20 MG tablet, Take 1 tablet (20 mg) by mouth Daily, Disp: 90 tablet, Rfl: 1 fluocinonide (Lidex) 0.05 % cream, Apply thin layer (2 g) to the arms and legs up to twice a day when flared, do not use one the face, groin, or underarms, 30 day supply, Disp: 60 g, Rfl: 11 glimepiride (Amaryl) 2 MG tablet, Take 1 tablet (2 mg) by mouth in the morning. Take before meals., Disp: 90 tablet, Rfl: 1 hydrOXYzine HCl (Atarax) 25 MG tablet, Take 1 tablet (25 mg) by mouth every 8 (eight) hours if needed for itching, Disp: 120 tablet, Rfl: 3 lisinopril 10 MG tablet, Take 1 tablet (10 mg) by mouth Daily, Disp: 90 tablet, Rfl: 1 metFORMIN (Glucophage) 1000 MG tablet, Take 1 tablet (1,000 mg) by mouth in the morning and 1 tablet (1,000 mg) in the evening. Take with meals., Disp: 180 tablet, Rfl: 1 Methylcobalamin ([id number] PO), Take 1,000 mg by mouth 1 [...] Take before meals. Do not crush or chew., Disp: 90 capsule, Rfl: 0 pregabalin (Lyrica) 150 MG capsule, Take 1 capsule (150 mg) by mouth in the morning and 1 capsule (150 mg) in the evening and 1 capsule (150 mg) before bedtime., Disp: 90 capsule, Rfl: 2 rosuvastatin (Crestor) 20 MG tablet, Take 1 tablet (20 mg) by mouth Daily, Disp: 90 tablet, Rfl: 1 Social History: Social History [...] VASC: Palpable pedal pulses bilaterally NEURO: 5.07 [place] Geraldine monofilament test intact to digits and forefoot bilaterally 125Hz tuning fork diminished to 1st MPJ bilaterally ORTHO: Positive pain on palpation to toenails of the left 1,2,3,4,5 toes and right 1,2,3,4,5 toes Range motion of 1st MPJ less than 65 degrees dorsiflexion bilaterally Positive pain on palpation to bilateral foot lesions ASSESSMENT 1. Verruca plantaris 2. Foot pain, right 3. Foot pain, left PLAN Application of salinocaine acid medication to [...] Grant Lozano DPM documented in this encounter [facility] 11-27-2024 History of Present illness Narrative Patient: Roxane Bonner : 1960 PCP: Ajay Gates MD SUBJECTIVE Patient presents today for follow up of skin lesion/neoplasm of unknown origin to the left and right foot Pt states that previous treatment of acid tx with some improvement Pt rates pain the pain on a 1-10 scale an intensity of 5 Pt presents today for followup. Positive HX of hallux rigidus b/l. Patient presents today with a CC of elongated, thick nails. Pt states nails have been elongated and thick for many years and cause pain with ambulation in shoegear. Pt has tried previous treatment with minimal relief. Pt presents today for nail care and treatment. Patient is DM2 with peripheral neuropathy Allergies: Allergies Allergen Reactions Penicillins Sulfa Antibiotics Past Medical History: Past Medical History: Diagnosis Date Chronic diastolic CHF (congestive heart failure) ([facility]) CKD (chronic kidney disease), symptom management only, stage 3 (moderate) ([facility]) DM II (diabetes mellitus, type II), controlled ([facility]) Elevated cholesterol Fracture RT LF BREONNA (generalized anxiety disorder) Heart disease History of medical problems cyst on cheek HLD (hyperlipidemia) Hypertension Kidney stones Neuropathy of foot Smoking Type 2 diabetes mellitus with peripheral neuropathy ([facility]) Type 2 diabetes mellitus with stage 3 chronic kidney disease, without long-term current use of insulin, unspecified whether stage 3a or 3b CKD ([facility]) Medications: Current Outpatient Medications: ASPIRIN 81 MG chewable tablet, Chew 81 mg Daily, Disp: , Rfl: Blood Pressure Monitoring (Blood Pressure Cuff) misc, 1 each in the morning and 1 each before bedtime., Disp: 1 each, Rfl: 0 Continuous Glucose Pneudraulic Systems Mechanic (Dexcom G7 Pneudraulic Systems Mechanic) device, 1 each continuously, Disp: 1 each, Rfl: 0 Continuous Glucose Sensor (Dexcom G7 Sensor) misc, 1 each continuously, Disp: 3 each, Rfl: 11 Dulaglutide (Trulicity) 0.75 MG/0.5ML solution auto-injector, Inject 0.75 mg under the skin every 7 (seven) days for 28 days, Disp: 2 mL, Rfl: 1 empagliflozin (Jardiance) 25 MG, Take 1 tablet (25 mg) by mouth Daily, Disp: 90 tablet, Rfl: 1 escitalopram (Lexapro) 20 MG tablet, Take 1 tablet (20 mg) by mouth Daily, Disp: 90 tablet, Rfl: 1 fluocinonide (Lidex) 0.05 % cream, Apply thin layer (2 g) to the arms and legs up to twice a day when flared, do not use one the face, groin, or underarms, 30 day supply, Disp: 60 g, Rfl: 11 glimepiride (Amaryl) 2 MG tablet, Take 1 tablet (2 mg) by mouth in the morning. Take before meals., Disp: 90 tablet, Rfl: 1 hydrOXYzine HCl (Atarax) 25 MG tablet, Take 1 tablet (25 mg) by mouth every 8 (eight) hours if needed for itching, Disp: 120 tablet, Rfl: 3 lisinopril 10 MG tablet, Take 1 tablet (10 mg) by mouth Daily, Disp: 90 tablet, Rfl: 1 metFORMIN (Glucophage) 1000 MG tablet, Take 1 tablet (1,000 mg) by mouth in the morning and 1 tablet (1,000 mg) in the evening. Take with meals., Disp: 180 tablet, Rfl: 1 Methylcobalamin (V68-WOTUYP PO), Take 1,000 mg by mouth 1 [...] Take before meals. 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 Pain due to onychomycosis of toenails of both feet PLAN Application of salinocaine acid medication to [...] consent given. Application of DSD post procedure. Debride nails in length and thickness digits 1 through 10 Patient educated today on proper diabetic foot care including monitoring feet daily for any signs of infection openings in the skin or irregularities to both feet. Patient had a diabetic neurological exam today to both their feet and discussed proper shoe gear Grant Lozano DPM documented in this encounter [facility] 11-26-2024 Telephone encounter Note Text [facility] [employer] [facility], this is a [facility] pharmacy and [place], I am just calling on patient Roxane for our his date of is [id number] was just calling about the G 7 sensors that were sent over. We just need to clarify in the directions when after how many days he is changing it. So just changing it. To every 10 days. And we wanted to make you aware that the sensors do require prior authorization. So we did send that on our end already and are just waiting for you guys information on that. If you could give us a call back [phone]. Thank you. Have a great day. [facility] 11-26-2024 Miscellaneous Notes Text [employer] [facility], this is a [email or web address] and [place], I am just calling on patient Roxane for our his date of is [id number] was just calling about the G 7 sensors that were sent over. We just need to clarify in the directions when after how many days he is changing it. So just changing it. To every 10 days. And we wanted to make you aware that the sensors do require prior authorization. So we did send that on our end already and are just waiting for you guys information on that. If you could give us a call back [phone]. Thank you. Have a great day. documented in this encounter [facility] 11-05-2024 History of Present illness Narrative Associated Problem(s): Esophageal dysphagia Continue PPI Refer to GI Right forearm- had biopsy for possible skin cancer done today Pt states that he does feel nauseous with the trulicity (states he understands it is a common side affect) Pt feels tho it is not helping and feels that his numbers has not improved. Pt states numbers are about the same. 30 day avg 131 02 range 92-93% wheezing Images from the original note were not [...] not apply, 2 times daily Continuous Glucose Pneudraulic Systems Mechanic (Dexcom G7 Pneudraulic Systems Mechanic) device 1 each, Does not apply, Continuous [...] Oral, 2 times daily with meals Methylcobalamin (U83-DDFQXZ PO) 1,000 mg, Daily metoprolol succinate XL [...] disease), symptom management only, stage 3 (moderate) ([facility]) DM II (diabetes mellitus, type II), controlled ([facility]) Elevated cholesterol Fracture RT LF BREONNA (generalized anxiety disorder) Heart disease History of medical problems cyst on cheek HLD (hyperlipidemia) Hypertension Kidney stones Neuropathy of foot Smoking Type 2 diabetes mellitus with peripheral neuropathy (HCC) Type 2 diabetes mellitus with stage 3 chronic kidney disease, without long-term current use of insulin, unspecified whether stage 3a or 3b CKD (HCC) Past Surgical History: Procedure Laterality Date CARDIAC [...] Size: Adult long) Pulse 86 Temp 98.1 F (Temporal) Resp 20 Wt 195 lb 12.8 oz SpO2 93% BMI 31.60 kg/m Smoking Status Every Day BSA 2.03 m Physical Exam Vitals and nursing note reviewed. [...] (BMI 30-39.9) COPD (chronic obstructive pulmonary disease) (HCC) - Primary Current meds: none Tobacco dependence The patient has been advised of the risks of continued smoking: stroke, MD, all forms of cancer, lung disease, and . Options for quitting smoking include: cold turkey, hypnosis, acupuncture, nicotine replacement meds (gum, lozenges, and patches), Buproprion, and Varenicline. At this time pt is encouraged to evaluate their goals for wanting to quit smoking, and reach out to provider when ready to start this process Elevated liver function tests Labs completed 10/26/24, will have repeat in 2 weeks due around 11/14/24 Check US of liver Relevant Orders US LIVER Esophageal dysphagia Continue PPI Refer to GI Relevant Orders Ambulatory referral to Gastroenterology Associated Problem(s): Tobacco dependence The patient has been advised of the risks of continued smoking: stroke, MD, all forms of cancer, lung disease, and [...] of side effects from med Associated Problem(s): Elevated liver function tests Labs completed 10/26/24, will have repeat in 2 weeks due around 11/14/24 Check US of liver Associated Problem(s): Hypertension Please check blood pressure daily and record DASH diet Limit caffeine Take medication as directed Contact office if chest pain, pressure, dizziness, shortness of breath, swelling legs Recommend slow position changes Current meds: mariah, b rsahawn Associated Problem(s): COPD (chronic obstructive pulmonary disease) (HCC) Current meds: none documented in this encounter [facility] 11-05-2024 Instructions Malgorzata Holliday NP - 11/05/2024 1:40 PM EDT Ultra sound liver, get labs at same time Will refer to GI for trouble swallowing documented in this encounter [facility] 11-05-2024 History of Present illness Narrative Images from the original note were not [...] to contact office if psoriasis worsens or fails to improve despite treatment. Follow up in two months fluocinonide (Lidex) 0.05 % cream - Arms and Legs Apply thin layer (2 g) to the arms and legs up to twice a day when flared, do not use one the face, groin, or underarms, 30 day supply 2. NEOPLASM [...] follow up/skin check documented in this encounter [facility] 10-02-2024 History of Present illness Narrative Dexcom in right arm Pt [...] being taken. 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 SUBJECTIVE: MEDICATIONS: Current Outpatient Medications Medication Instructions aspirin (ASPIRIN) 81 mg, Daily Blood Pressure Monitoring (Blood Pressure Cuff) misc 1 each, Does not apply, 2 times daily Continuous Glucose Pneudraulic Systems Mechanic (Dexcom G7 Pneudraulic Systems Mechanic) device 1 each, Does not apply, Continuous [...] Oral, 2 times daily with meals Methylcobalamin (A89-FYZZRL PO) 1,000 mg, Daily metoprolol succinate XL [...] Date Chronic diastolic CHF (congestive heart failure) ([facility]) CKD (chronic kidney disease), symptom management only, stage 3 (moderate) (HCC) ([facility]) DM II (diabetes mellitus, type II), controlled ([facility]) Elevated cholesterol ([facility]) Fracture RT LF BREONNA (generalized anxiety disorder) ([facility]) Heart disease History of medical problems cyst on cheek HLD (hyperlipidemia) ([facility]) Hypertension ([facility]) Kidney stones Neuropathy of foot Smoking Type 2 diabetes mellitus with peripheral neuropathy ([facility]) Type 2 diabetes mellitus with stage 3 chronic kidney disease, without long-term current use of insulin, unspecified whether stage 3a or 3b CKD (HCC) ([facility]) Past Surgical History: Procedure Laterality Date CARDIAC [...] List Items Addressed This Visit Atherosclerosis 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 pectoris ([facility]) Meds: asa, statin, bl rashawn, SGLT 2, statin Relevant Orders CBC and differential RESOLVED: Current every day smoker The patient has been advised of the risks of continued smoking: stroke, MD, all forms of cancer, lung disease, and [...] without long-term current use of insulin (HCC) ([facility]) Check blood sugars daily, notify if <70 [...] Dulaglutide (Trulicity) 0.75 MG/0.5ML solution auto-injector Hyperlipidemia ([facility]) On statin therapy Check labs yearly and prn dose changes Relevant Orders Comprehensive metabolic panel Lipid panel Hypertension ([facility]) Please check blood pressure daily and record DASH diet Limit caffeine Take medication as directed Contact office if chest pain, pressure, dizziness, shortness of breath, swelling legs Recommend slow position changes Current meds: mariah, b rashawn Relevant Orders Comprehensive metabolic panel Microalbumin / creatinine, urine ratio Urinalysis with reflex microscopic (clean catch) BREONNA (generalized anxiety disorder) ([facility]) Current meds: atarax prn, lexapro PHQ 9=6 BREONNA 7=13 Chronic heart failure with preserved ejection fraction ([facility]) Current meds: asa, jardiance, mariah, b rashawn, [...] Type 2 diabetes mellitus with diabetic polyneuropathy ([facility]) - Primary Freq foot inspections, proper fitiing [...] symptom management only, stage 3 (moderate) (HCC) ([facility]) Avoid nephrotoxic drugs when possible Goal: adeuquate [...] of the risks of continued smoking: stroke, MD, all forms of cancer, lung disease, and [...] of the risks of continued smoking: stroke, MD, all forms of cancer, lung disease, and [...] of the risks of continued smoking: stroke, MD, all forms of cancer, lung disease, and [...] without long-term current use of insulin (HCC) ([facility]) Check blood sugars daily, notify if <70 [...] b rashawn, statin Associated Problem(s): Atherosclerosis 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 pectoris (CMS/HCC) Meds: asa, statin, bl rashawn, SGLT 2, statin Associated Problem(s): Type 2 diabetes mellitus with diabetic polyneuropathy ([facility]) Freq foot inspections, proper fitiing shoes and socks Adequate DM control Lyrica OARRS documented in this encounter [facility] 10-02-2024 Instructions Malgorzata Holliday NP - 10/02/2024 2:00 PM EDT Check blood pressure twice a day if continues under 100/60 call office Get labs: fasting 8 hours Will add either ozempic, mounjaro, or truliticity once a week: may causing abd pain, nausea, vomiting call my office. These medications will cause you to eat less, feel full sooner documented in this encounter [facility] 09-25-2024 History of Present illness Narrative Patient: Roxane Bonner : 1960 [...] Date Chronic diastolic CHF (congestive heart failure) ([facility]) CKD (chronic kidney disease), symptom management only, stage 3 (moderate) (HCC) ([facility]) DM II (diabetes mellitus, type II), controlled ([facility]) Elevated cholesterol ([facility]) Fracture RT LF BREONNA (generalized anxiety disorder) ([facility]) Heart disease History of medical problems cyst on cheek HLD (hyperlipidemia) ([facility]) Hypertension ([facility]) Kidney stones Neuropathy of foot Smoking Type 2 diabetes mellitus with peripheral neuropathy ([facility]) Type 2 diabetes mellitus with stage 3 chronic kidney disease, without long-term current use of insulin, unspecified whether stage 3a or 3b CKD (HCC) ([facility]) Medications: Current Outpatient Medications: ASPIRIN 81 MG chewable tablet, Chew 81 mg in the morning., Disp: , Rfl: Blood Pressure Monitoring (Blood Pressure Cuff) misc, 1 each in the morning and 1 each before bedtime., Disp: 1 each, Rfl: 0 Continuous Glucose Pneudraulic Systems Mechanic (Dexcom G7 Pneudraulic Systems Mechanic) device, 1 each continuously, Disp: 1 each, [...] meals., Disp: 180 tablet, Rfl: 1 Methylcobalamin (T94-VZPIEI PO), Take 1,000 mg by mouth 1 [...] VASC: Palpable pedal pulses bilaterally NEURO: 5.07 [place] Geraldine monofilament test intact to digits and [...] diabetes mellitus with diabetic polyneuropathy, 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 ([facility]) 5. Contusion of left foot, initial encounter [...] Grant Lozano DPM documented in this encounter [facility] 08-21-2024 History of Present illness Narrative Patient: Roxane Bonner : 1960 [...] Date Chronic diastolic CHF (congestive heart failure) ([facility]) CKD (chronic kidney disease), symptom management only, stage 3 (moderate) (HCC) ([facility]) DM II (diabetes mellitus, type II), controlled ([facility]) Elevated cholesterol ([facility]) Fracture RT LF BREONNA (generalized anxiety disorder) ([facility]) Heart disease History of medical problems cyst on cheek HLD (hyperlipidemia) ([facility] Hypertension ([facility]) Kidney stones Neuropathy of foot Smoking Type 2 diabetes mellitus with peripheral neuropathy ([facility]) Type 2 diabetes mellitus with stage 3 chronic kidney disease, without long-term current use of insulin, unspecified whether stage 3a or 3b CKD (HCC) ([facility]) Medications: Current Outpatient Medications: ASPIRIN 81 MG chewable tablet, Chew 81 mg in the morning., Disp: , Rfl: Blood Pressure Monitoring (Blood Pressure Cuff) misc, 1 each in the morning and 1 each before bedtime., Disp: 1 each, Rfl: 0 Continuous Glucose Pneudraulic Systems Mechanic (Dexcom G7 Pneudraulic Systems Mechanic) device, 1 each continuously, Disp: 1 each, [...] meals., Disp: 180 tablet, Rfl: 1 Methylcobalamin (D17-TOLXUF PO), Take 1,000 mg by mouth 1 [...] VASC: Palpable pedal pulses bilaterally NEURO: 5.07 [place] Geraldine monofilament test intact to digits and [...] diabetes mellitus with diabetic polyneuropathy, 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 ([facility]) PLAN Application of salinocaine acid medication to [...] Grant Lozano DPM documented in this encounter [facility] 08-06-2024 History of Present illness Narrative Patient: Roxane Bonner : 1960 [...] Date Chronic diastolic CHF (congestive heart failure) ([facility]) CKD (chronic kidney disease), symptom management only, stage 3 (moderate) (HCC) ([facility]) DM II (diabetes mellitus, type II), controlled ([facility]) Elevated cholesterol ([facility]) Fracture RT LF BREONNA (generalized anxiety disorder) ([facility]) Heart disease History of medical problems cyst on cheek HLD (hyperlipidemia) ([facility] Hypertension ([facility]) Kidney stones Neuropathy of foot Smoking Type 2 diabetes mellitus with peripheral neuropathy ([facility]) Type 2 diabetes mellitus with stage 3 chronic kidney disease, without long-term current use of insulin, unspecified whether stage 3a or 3b CKD (HCC) ([facility]) Medications: Current Outpatient Medications: ASPIRIN 81 MG chewable tablet, Chew 81 mg in the morning., Disp: , Rfl: Blood Pressure Monitoring (Blood Pressure Cuff) misc, 1 each in the morning and 1 each before bedtime., Disp: 1 each, Rfl: 0 Continuous Glucose Pneudraulic Systems Mechanic (Dexcom G7 Pneudraulic Systems Mechanic) device, 1 each continuously, Disp: 1 each, [...] meals., Disp: 180 tablet, Rfl: 1 Methylcobalamin (T23-AOZQDY PO), Take 1,000 mg by mouth 1 [...] VASC: Palpable pedal pulses bilaterally NEURO: 5.07 [place] Geraldine monofilament test intact to digits and [...] diabetes mellitus with diabetic polyneuropathy, 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 ([facility]) 4. Pain due to onychomycosis of toenails [...] pathological diagnosis of specimen. Patient may take [id number] NSAID p.r.n. for pain Application of salinocaine [...] Grant Lozano DPM documented in this encounter [facility] 06-25-2024 History of Present illness Narrative Associated Problem(s): Generalized anxiety disorder (CMS/HCC) Currently taking Lexapro to 20mg Has significant life stressors, wages being garnished. Primary caregiver fro friend. Taking Hydroxyzine PRN. Feels he would benefit from medications being increased but declines wanting to change medications or adding any new medications at this time. Discussed therapy and bringing in additional resources. Provided pt information to executive secretary social welfare for additional resources. Associated Problem(s): Hypertension (CMS/HCC) [...] in additional resources. Provided pt information to executive secretary social welfare for additional resources. Associated Problem(s): Type 2 [...] episodes of hypoglycemia in the evening and inbound sales manager hours. Will decrease glimepiride to once daily [...] in additional resources. Provided pt information to executive secretary social welfare for additional resources. DMII: Currently taking Glimepiride, Jardiance, metformin. Most recent labs: hemoglobin A1C % in office today Average FSBS range from BGs range between 120 and 140 Checks BG levels using: standard BG meter. Is requesting a continuous BG monitor. Reports several episodes of hypoglycemia in the evening and inbound sales manager hours. Will decrease glimepiride to once daily [...] disease, without long-term current use of insulin ([facility] [facility] ([facility]) - Primary Currently taking Glimepiride, Jardiance, metformin. Most recent labs: hemoglobin A1C 7.9% in office today Average FSBS range from BGs range between 120 and 140 Checks BG levels using: standard BG meter. Is requesting a continuous BG monitor. Reports several episodes of hypoglycemia in the evening and inbound sales manager hours. Will decrease glimepiride to once daily dosing today. Patient educated on lifestyle modifications, dietary restrictions, signs and symptoms of hypoglycemia/hyperglycemia and importance of eating regular consistent meals. Stressed upon importance of checking blood glucose at home and bring blood glucose log to appointments. All questions, concerns answered and addressed. Encouraged to call office if persistent hypoglycemia/hyperglycemia on home glucose monitoring noted. Hypertension ([facility]) Currently taking Isosorbide Lisinopril Metoprolol Checks BP at home; Has not been checking BP's at home since last OV. Given BP log, advised pt to record BP and bring log back with them to next visit. Generalized anxiety disorder ([facility]) Currently taking Lexapro to 20mg Has significant life stressors, wages being garnished. Primary caregiver fro friend. Taking Hydroxyzine PRN. Feels he would benefit from medications being increased but declines wanting to change medications or adding any new medications at this time. Discussed therapy and bringing in additional resources. Provided pt information to executive secretary social welfare for additional resources. Type 2 diabetes mellitus with diabetic polyneuropathy ([facility]) Relevant Medications glimepiride (Amaryl) 2 MG tablet Other Visit Diagnoses Hyperlipidemia, unspecified ([facility]) documented in this encounter [facility] 06-25-2024 Instructions Cris Johnson NP - 06/25/2024 [...] and simple sugars. documented in this encounter [facility] 04-20-2024 Telephone encounter Note LVM [facility] 04-20-2024 Miscellaneous Notes LVM lvm Pt was a no show, lvm documented in this encounter [facility] 04-16-2024 Telephone encounter Note lvm [facility] 04-12-2024 Telephone encounter Note Pt was a no show, lvm [facility] 03-26-2024 History of Present illness Narrative Associated Problem(s): BREONNA (generalized anxiety disorder) ([facility]) Currently taking Lexapro to 20mg Has significant [...] without long-term current use of insulin (HCC) ([facility]) Currently taking Glimepiride, Jardiance, metformin. Most recent [...] correlating with manual BP's. Pt did not pick up attendant cuff at pharmacy. States there was an [...] disease, without long-term current use of insulin ([facility]) ([facility]) Currently taking Glimepiride, Jardiance, metformin. Most recent [...] tablet Other Relevant Orders Hemoglobin A1c Hypertension ([facility]) Relevant Medications lisinopril 10 MG tablet BREONNA (generalized anxiety disorder) ([facility]) Currently taking Lexapro to 20mg Has significant life stressors, wages being garnished. Taking Hydroxyzine PRN. States anxiety and depression has decreased since increasing dose. Reports anxiety is much better, palpitations and restlessness have improved. Referral was sent to , pt has not yet scheduled appointment, reports he will soon. Relevant Medications hydrOXYzine HCl (Atarax) 25 MG tablet Generalized anxiety disorder ([facility]) Relevant Medications escitalopram (Lexapro) 20 MG tablet Type 2 diabetes mellitus with diabetic polyneuropathy ([facility]) Relevant Medications empagliflozin (Jardiance) 25 MG glimepiride [...] contact the office. documented in this encounter [facility] 03-26-2024 Instructions Cris Johnson NP - 03/26/2024 [...] and simple sugars. documented in this encounter [facility] 03-05-2024 Telephone encounter Note Pt called stating he is completley out of his Pregabalin. LOYDA:02/13/2024 NOV:03/26/2024 [facility] 03-05-2024 Miscellaneous Notes Pt called stating he is completley out of his Pregabalin. LOYDA:02/13/2024 NOV:03/26/2024 documented in this encounter [facility] 02-13-2024 History of Present illness Narrative Associated Problem(s): Acid reflux Pt [...] Associated Problem(s): BREONNA (generalized anxiety disorder) (CMS/HCC) Increased Lexapro to 20mg last OV; Has [...] Pressure Cuff) misc BREONNA (generalized anxiety disorder) ([facility]) Increased Lexapro to 20mg last OV; Has [...] referral to Dermatology documented in this encounter [facility] 02-13-2024 Instructions Cris Johnson NP - 02/13/2024 [...] 20mg once daily; documented in this encounter [facility] 01-26-2024 History of Present illness Narrative Patient: Roxane Bonner : 1960 [...] Date Chronic diastolic CHF (congestive heart failure) ([facility]) CKD (chronic kidney disease), symptom management only, stage 3 (moderate) (HCC) ([facility]) DM II (diabetes mellitus, type II), controlled ([facility]) Elevated cholesterol ([facility]) Fracture RT LF BREONNA (generalized anxiety disorder) ([facility]) Heart disease History of medical problems cyst on cheek HLD (hyperlipidemia) ([facility]) Hypertension ([facility]) Kidney stones Neuropathy of foot Smoking Type 2 diabetes mellitus with peripheral neuropathy ([facility]) Type 2 diabetes mellitus with stage 3 chronic kidney disease, without long-term current use of insulin, unspecified whether stage 3a or 3b CKD (HCC) ([facility]) Medications: Current Outpatient Medications: ASPIRIN 81 MG [...] meals., Disp: 180 tablet, Rfl: 1 Methylcobalamin ([id number] PO), Take 1,000 mg by mouth 1 [...] VASC: Palpable pedal pulses bilaterally NEURO: 5.07 [place] Geraldine monofilament test intact to digits and forefoot bilaterally 125Hz tuning fork diminished to 1st MPJ bilaterally ORTHO: Positive pain on palpation to nails 1 through 10 Range motion of 1st MPJ less than 65 degrees dorsiflexion bilaterally ASSESSMENT 1. Hallux rigidus of left foot 2. Type 2 diabetes mellitus with stage 3a chronic kidney disease, without long-term current use of insulin ([facility]) ([facility]) 3. Hallux rigidus of right foot 4. Type 2 diabetes mellitus with diabetic polyneuropathy, unspecified whether nursing home insulin use ([facility]) ([facility]) 5. Onychomycosis 6. Toe pain, bilateral PLAN [...] Grant Lozano DPM documented in this encounter [facility] 01-05-2024 History of Present illness Narrative Associated Problem(s): Current every day smoker 1ppd currently. Denies interest in quitting. States it has been worse with anxiety recently, has been smoking more. Counseled on smoking cessation. Associated Problem(s): Dysphagia Has been having dysphagia recently- Especially with thick foods and water Agreeable to Fluoroscopy/KUB to rule out pathological cause. Associated Problem(s): BREONNA (generalized anxiety disorder) ([facility]) Taking Lexapro 10mg Reports is having more episodes of anxiety recently, uses the hydroxyzine PRN.Does not feel like it is working. PRN. Will consider increasing Lexapro dosing. Denies SI/HI. Increased Lexapro to 20mg. Associated Problem(s): CKD (chronic kidney disease), symptom management only, stage 3 (moderate) (HCC) ([facility]) GFR 58 on labs 1 month ago. GFR stable. Avoid nephrotoxic agents. Continue with Jardiance. Associated Problem(s): Type 2 diabetes mellitus with stage 3a chronic kidney disease, without long-term current use of insulin (HCC) ([facility]) BS THIS MORNING 167. PREVIOUSLY BETWEEN 80 [...] Due; Will schedule appt. Associated Problem(s): Hyperlipidemia ([facility]) Currently taking Rosuvastatin 20mg Reports myalgias. Will attempt switching to Atorvastatin if ok with cardiology Last lipid panel Triglycerides had increased. States he was not fasting with last lipid panel. Associated Problem(s): Hypertension ([facility]/HCC) Currently taking Imdur 30mg Metoprolol 25mg Lisinopril [...] ALBUMIN GLOBULIN RATIO 1.2 1.2 Resulting Agency [facility] BS THIS MORNING 167. PREVIOUSLY BETWEEN 80 [...] without long-term current use of insulin (HCC) ([facility]) BS THIS MORNING 167. PREVIOUSLY BETWEEN 80 [...] Relevant Orders Ambulatory referral to Podiatry Hyperlipidemia ([facility]) Currently taking Rosuvastatin 20mg Reports myalgias. Will attempt switching to Atorvastatin if ok with cardiology Last lipid panel Triglycerides had increased. States he was not fasting with last lipid panel. Hypertension ([facility]) - Primary Currently taking Imdur 30mg Metoprolol 25mg Lisinopril 10mg Does not checks BP at home; Denies orthostatic changes, dizziness, cough, shortness of breath, swelling in extremities. Continue current regimen. Given BP log; Instructed to check BP at home and bring log back to next visit. BREONNA (generalized anxiety disorder) ([facility]) Taking Lexapro 10mg Reports is having more episodes of anxiety recently, uses the hydroxyzine PRN.Does not feel like it is working. PRN. Will consider increasing Lexapro dosing. Denies SI/HI. Increased Lexapro to 20mg. Smoker Generalized anxiety disorder ([facility]) Relevant Medications escitalopram (Lexapro) 20 MG tablet Type 2 diabetes mellitus with diabetic polyneuropathy (HCC) ([facility]) Dysphagia Has been having dysphagia recently- Especially with thick foods and water Agreeable to Fluoroscopy/KUB to rule out pathological cause. Relevant Orders FL upper GI double contrast w KUB Other Visit Diagnoses Choking due to food (regurgitated), initial encounter Relevant Orders FL upper GI double contrast w KUB documented in this encounter [facility] 01-05-2024 Instructions Cris Johnson NP - 01/05/2024 [...] and simple sugars. documented in this encounter [facility] 06-07-2023 History of Present illness Narrative Subjective [...] Disp: , Rfl: Assessment/Plan 1. Atherosclerosis of [place] coronary artery of [place] heart without angina pectoris 2. Shortness of breath 3. Anxiety 4. Obesity (BMI 30-39.9) 5. Type 2 diabetes mellitus without complication, with long-term current use of insulin ([facility]) 6. Current every day smoker Scribe Attestation By signing my name below, Ainsley Estevez D[employer]ITAL [employer] INVESTIGATOR , Scribe attest that this documentation has been prepared under the direction and in the presence of Jacinto Marcelino DO. documented in this encounter [facility] Work Phone: 06-07-2023 Instructions Shefali George CMA [...] of your visit. documented in this encounter [facility] Work Phone: 10-01-2022 Chief complaint Narrative - [...] seeking medical attention if new symptoms arise. [facility] DO Work Phone: 10-30-2020 Evaluation note Diagnosis Stage 3a chronic kidney disease (HCC) documented in this encounter [facility] Phone: [phone] Evaluation note* Diagnosis Stage 3a chronic kidney disease (HCC) Nephrolithiasis Calculus of kidney documented in this encounter [facility] Phone: evaluation note* Diagnosis Renal calculus Calculus of kidney PAULA (acute kidney injury) (HCC) Acute kidney failure, unspecified Dysuria documented in this encounter [facility] Phone: [email or web address] note* Diagnosis Renal calculus Calculus of kidney documented in this encounter [facility] Phone: [email or web address] noteNo assessment information available [facility] [place] Work Phone: Evaluation note* Diagnosis Atherosclerosis of [place] coronary artery of [place] heart without angina pectoris Shortness of breath Anxiety Anxiety state, unspecified Obesity (BMI 30-39.9) Type 2 diabetes mellitus without complication, with long-term current use of insulin ([facility]) Current every day smoker documented in this encounter [facility] Work Phone: Evaluation note* Diagnosis Primary hypertension (CMS/HCC)- Primary Unspecified essential hypertension Gastroesophageal reflux disease without esophagitis Esophageal reflux BREONNA (generalized anxiety disorder) ([facility]/HCC) Generalized anxiety disorder Hx of psoriasis [facility] Diagnosis Generalized anxiety disorder (CMS/HCC) Generalized anxiety disorder [facility] Diagnosis Type 2 diabetes mellitus without complication, without long-term current use of insulin (CMS/HCC)- Primary Hyperlipidemia, unspecified hyperlipidemia type (CMS/HCC) BREONNA (generalized anxiety disorder) (CMS/HCC) Generalized anxiety disorder Primary hypertension (CMS/HCC) Unspecified essential hypertension Type 2 diabetes mellitus with stage 3a chronic kidney disease, without long-term current use of insulin (HCC) (CMS/HCC) Atherosclerosis of [place] coronary artery of [place] heart without angina pectoris (CMS/HCC) Chronic heart failure with preserved ejection fraction ([facility]) Current every day smoker BREONNA (generalized anxiety disorder) ([facility])- Primary Generalized anxiety disorder Generalized anxiety disorder ([facility]) Generalized anxiety disorder Type 2 diabetes mellitus with stage 3a chronic kidney disease, without long-term current use of insulin (HCC) ([facility])- Primary Type 2 diabetes mellitus with diabetic polyneuropathy ([facility] Generalized anxiety disorder ([facility] Generalized anxiety disorder BREONNA (generalized anxiety disorder) ([facility]) Generalized anxiety disorder Primary hypertension ([facility]) Unspecified essential hypertension Hyperlipidemia, unspecified hyperlipidemia type ([facility]) Primary hypertension ([facility])- Primary Unspecified essential hypertension Type 2 diabetes mellitus with stage 3a chronic kidney disease, without long-term current use of insulin (HCC) ([facility]) Mixed hyperlipidemia ([facility]) Mixed hyperlipidemia Generalized anxiety disorder ([facility]) Generalized anxiety disorder Current every day smoker Type 2 diabetes mellitus with diabetic polyneuropathy, without long-term current use of insulin ([facility]) Dysphagia, unspecified type Choking due to food (regurgitated), initial encounter BREONNA (generalized anxiety disorder) ([facility]) Generalized anxiety disorder Smoker Tobacco use disorder Primary hypertension ([facility])- Primary Unspecified essential hypertension Gastroesophageal reflux disease without esophagitis Esophageal reflux BREONNA (generalized anxiety disorder) ([facility]) Generalized anxiety disorder Hx of psoriasis Type 2 diabetes mellitus with diabetic polyneuropathy ([facility]) documented in [facility] encounter [facility]* Diagnosis Type 2 diabetes mellitus without complication, without long-term current use of insulin ([facility])- Primary Hyperlipidemia, unspecified hyperlipidemia type ([facility]) BREONNA (generalized anxiety disorder) ([facility]) Generalized anxiety disorder Primary hypertension ([facility]) Unspecified essential hypertension Type 2 diabetes mellitus with stage 3a chronic kidney disease, without long-term current use of insulin (HCC) ([facility]) Atherosclerosis of [place] coronary artery of [place] heart without angina pectoris ([facility]) Chronic heart failure with preserved ejection fraction ([facility]) Current every day smoker BREONNA (generalized anxiety disorder) ([facility])- Primary Generalized anxiety disorder Generalized anxiety disorder ([facility]) Generalized anxiety disorder Type 2 diabetes mellitus with stage 3a chronic kidney disease, without long-term current use of insulin (HCC) ([facility])- Primary Type 2 diabetes mellitus with diabetic polyneuropathy ([facility] Generalized anxiety disorder ([facility] Generalized anxiety disorder BREONNA (generalized anxiety disorder) ([facility]) Generalized anxiety disorder Primary hypertension ([facility]) Unspecified essential hypertension Hyperlipidemia, unspecified hyperlipidemia type ([facility]/HCC) Primary hypertension ([facility]/HCC)- Primary Unspecified essential hypertension Type 2 diabetes mellitus with stage 3a chronic kidney disease, without long-term current use of insulin (HCC) ([facility]) Mixed hyperlipidemia ([facility] Mixed hyperlipidemia Generalized anxiety disorder ([facility]) Generalized anxiety disorder Current every day smoker Type 2 diabetes mellitus with diabetic polyneuropathy, without long-term current use of insulin ([facility]) Dysphagia, unspecified type Choking due to food (regurgitated), initial encounter BREONNA (generalized anxiety disorder) ([facility]) Generalized anxiety disorder Smoker Tobacco use disorder Primary hypertension ([facility])- Primary Unspecified essential hypertension Gastroesophageal reflux disease without esophagitis Esophageal reflux BREONNA (generalized anxiety disorder) ([facility]) Generalized anxiety disorder Hx of psoriasis Type 2 diabetes mellitus with diabetic polyneuropathy ([facility] Generalized anxiety disorder ([facility]) Generalized anxiety disorder BREONNA (generalized anxiety disorder) ([facility]) Generalized anxiety disorder Type 2 diabetes mellitus with stage 3a chronic kidney disease, without long-term current use of insulin (HCC) ([facility]) Primary hypertension ([facility]) Unspecified essential hypertension Gastroesophageal reflux disease without esophagitis Esophageal reflux Hyperlipidemia, unspecified ([facility]) documented in this encounter [facility]* Diagnosis Primary hypertension ([facility])- Primary Unspecified essential hypertension Type 2 diabetes mellitus with stage 3a chronic kidney disease, without long-term current use of insulin (HCC) ([facility]) Mixed hyperlipidemia ([facility] Mixed hyperlipidemia Generalized anxiety disorder ([facility]) Generalized anxiety disorder Current every day smoker Type 2 diabetes mellitus with diabetic polyneuropathy, without long-term current use of insulin ([facility]) Dysphagia, unspecified type Choking due to food (regurgitated), initial encounter BREONNA (generalized anxiety disorder) ([facility]) Generalized anxiety disorder Smoker Tobacco use disorder documented in this encounter [facility]* Diagnosis Hallux rigidus of left foot- Primary Type 2 diabetes mellitus with stage 3a chronic kidney disease, without long-term current use of insulin (HCC) ([facility]) Hallux rigidus of right foot Type 2 diabetes mellitus with diabetic polyneuropathy, 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 ([facility]) Onychomycosis Dermatophytosis of nail Toe pain, bilateral documented in this encounter [facility] HealthcareEvaluation note* Diagnosis Type 2 diabetes mellitus without complication, without long-term current use of insulin ([facility])- Primary Hyperlipidemia, unspecified hyperlipidemia type ([facility]) BREONNA (generalized anxiety disorder) ([facility]) Generalized anxiety disorder Primary hypertension ([facility]) Unspecified essential hypertension Type 2 diabetes mellitus with stage 3a chronic kidney disease, without long-term current use of insulin (HCC) ([facility] Atherosclerosis [place] coronary artery of [place] heart without angina pectoris ([facility] Chronic heart failure with preserved ejection fraction ([facility] Current every day smoker BREONNA (generalized anxiety disorder) ([facility])- Primary Generalized anxiety disorder Generalized anxiety disorder ([facility]) Generalized anxiety disorder Type 2 diabetes mellitus with stage 3a chronic kidney disease, without long-term current use of insulin ([facility]) ([facility])- Primary Type 2 diabetes mellitus with diabetic polyneuropathy ([facility] Generalized anxiety disorder ([facility] Generalized anxiety disorder BREONNA (generalized anxiety disorder) ([facility]) Generalized anxiety disorder Primary hypertension ([facility]) Unspecified essential hypertension Hyperlipidemia, unspecified hyperlipidemia type ([facility]) Primary hypertension ([facility])- Primary Unspecified essential hypertension Type 2 diabetes mellitus with stage 3a chronic kidney disease, without long-term current use of insulin (HCC) ([facility] Mixed hyperlipidemia ([facility] Mixed hyperlipidemia Generalized anxiety disorder ([facility]) Generalized anxiety disorder Current every day smoker Type 2 diabetes mellitus with diabetic polyneuropathy, without long-term current use of insulin ([facility]) Dysphagia, unspecified type Choking due to food (regurgitated), initial encounter BREONNA (generalized anxiety disorder) ([facility]) Generalized anxiety disorder Smoker Tobacco use disorder Primary hypertension ([facility])- Primary Unspecified essential hypertension Gastroesophageal reflux disease without esophagitis Esophageal reflux BREONNA (generalized anxiety disorder) ([facility]) Generalized anxiety disorder Hx of psoriasis Type 2 diabetes mellitus with diabetic polyneuropathy ([facility] Generalized anxiety disorder ([facility]) Generalized anxiety disorder BREONNA (generalized anxiety disorder) ([facility]) Generalized anxiety disorder Type 2 diabetes mellitus with stage 3a chronic kidney disease, without long-term current use of insulin (HCC) ([facility]) Primary hypertension ([facility]) Unspecified essential hypertension Gastroesophageal reflux disease without esophagitis Esophageal reflux Hyperlipidemia, unspecified ([facility]) Type 2 diabetes mellitus with diabetic polyneuropathy ([facility]) documented in this encounter [facility] HealthcareEvaluation note* Diagnosis Type 2 diabetes mellitus without complication, without long-term current use of insulin ([facility])- Primary Hyperlipidemia, unspecified hyperlipidemia type ([facility]) BREONNA (generalized anxiety disorder) ([facility]) Generalized anxiety disorder Primary hypertension ([facility]) Unspecified essential hypertension Type 2 diabetes mellitus with stage 3a chronic kidney disease, without long-term current use of insulin (HCC) ([facility] Atheros[place] coronary artery of [place] heart without angina pectoris ([facility] Chronic heart failure with preserved ejection fraction ([facility] Current every day smoker BREONNA (generalized anxiety disorder) ([facility])- Primary Generalized anxiety disorder Generalized anxiety disorder ([facility]) Generalized anxiety disorder Type 2 diabetes mellitus with stage 3a chronic kidney disease, without long-term current use of insulin ([facility]) ([facility])- Primary Type 2 diabetes mellitus with diabetic polyneuropathy ([facility] Generalized anxiety disorder ([facility] Generalized anxiety disorder BREONNA (generalized anxiety disorder) ([facility]) Generalized anxiety disorder Primary hypertension ([facility]) Unspecified essential hypertension Hyperlipidemia, unspecified hyperlipidemia type ([facility]) Primary hypertension ([facility])- Primary Unspecified essential hypertension Type 2 diabetes mellitus with stage 3a chronic kidney disease, without long-term current use of insulin (HCC) ([facility] Mixed hyperlipidemia ([facility] Mixed hyperlipidemia Generalized anxiety disorder ([facility]) Generalized anxiety disorder Current every day smoker Type 2 diabetes mellitus with diabetic polyneuropathy, without long-term current use of insulin ([facility]) Dysphagia, unspecified type Choking due to food (regurgitated), initial encounter BREONNA (generalized anxiety disorder) ([facility]) Generalized anxiety disorder Smoker Tobacco use disorder Primary hypertension ([facility])- Primary Unspecified essential hypertension Gastroesophageal reflux disease without esophagitis Esophageal reflux BREONNA (generalized anxiety disorder) ([facility]) Generalized anxiety disorder Hx of psoriasis Type 2 diabetes mellitus with diabetic polyneuropathy ([facility] Generalized anxiety disorder ([facility] Generalized anxiety disorder BREONNA (generalized anxiety disorder) ([facility]/HCC) Generalized anxiety disorder Type 2 diabetes mellitus with stage 3a chronic kidney disease, without long-term current use of insulin (HCC) ([facility]) Primary hypertension ([facility]) Unspecified essential hypertension Gastroesophageal reflux disease without esophagitis Esophageal reflux Hyperlipidemia, unspecified ([facility]) Type 2 diabetes mellitus with stage 3a chronic kidney disease, without long-term current use of insulin (HCC) ([facility])- Primary Generalized anxiety disorder ([facility] Generalized anxiety disorder Type 2 diabetes mellitus with diabetic polyneuropathy ([facility]) Hyperlipidemia, unspecified ([facility]HCC) Primary hypertension ([facility]) Unspecified essential hypertension documented in this encounter [facility] HealthcareEvaluation note* Diagnosis Type 2 diabetes mellitus without complication, without long-term current use of insulin- Primary Hyperlipidemia, unspecified hyperlipidemia type ([facility]) BREONNA (generalized anxiety disorder) ([facility]) Generalized anxiety disorder Primary hypertension ([facility]) Unspecified essential hypertension Type 2 diabetes mellitus with stage 3a chronic kidney disease, without long-term current use of insulin ([facility]) ([facility] Atheros[place] coronary artery of [place] heart without angina pectoris ([facility] Chronic heart failure with preserved ejection fraction ([facility] Current every day smoker BREONNA (generalized anxiety disorder) ([facility])- Primary Generalized anxiety disorder Generalized anxiety disorder ([facility]) Generalized anxiety disorder Type 2 diabetes mellitus with stage 3a chronic kidney disease, without long-term current use of insulin (HCC) ([facility])- Primary Type 2 diabetes mellitus with diabetic polyneuropathy ([facility] Generalized anxiety disorder ([facility] Generalized anxiety disorder BREONNA (generalized anxiety disorder) ([facility]) Generalized anxiety disorder Primary hypertension ([facility]) Unspecified essential hypertension Hyperlipidemia, unspecified hyperlipidemia type ([facility]HCC) Primary hypertension ([facility])- Primary Unspecified essential hypertension Type 2 diabetes mellitus with stage 3a chronic kidney disease, without long-term current use of insulin (HCC) ([facility] Mixed hyperlipidemia ([facility] Mixed hyperlipidemia Generalized anxiety disorder ([facility]) Generalized anxiety disorder Current every day smoker Type 2 diabetes mellitus with diabetic polyneuropathy, without long-term current use of insulin ([facility]) Dysphagia, unspecified type Choking due to food (regurgitated), initial encounter BREONNA (generalized anxiety disorder) ([facility]) Generalized anxiety disorder Smoker Tobacco use disorder Primary hypertension ([facility])- Primary Unspecified essential hypertension Gastroesophageal reflux disease without esophagitis Esophageal reflux BREONNA (generalized anxiety disorder) ([facility]) Generalized anxiety disorder Hx of psoriasis Type 2 diabetes mellitus with diabetic polyneuropathy ([facility] Generalized anxiety disorder ([facility] Generalized anxiety disorder BREONNA (generalized anxiety disorder) ([facility]HCC) Generalized anxiety disorder Type 2 diabetes mellitus with stage 3a chronic kidney disease, without long-term current use of insulin (HCC) ([facility]) Primary hypertension ([facility]) Unspecified essential hypertension Gastroesophageal reflux disease without esophagitis Esophageal reflux Hyperlipidemia, unspecified ([facility]) Type 2 diabetes mellitus with stage 3a chronic kidney disease, without long-term current use of insulin ([facility]) ([facility])- Primary Generalized anxiety disorder ([facility] Generalized anxiety disorder Type 2 diabetes mellitus with diabetic polyneuropathy ([facility]) Hyperlipidemia, unspecified ([facility]) Primary hypertension ([facility]) Unspecified essential hypertension Neoplasm of uncertain behavior of skin- Primary Hallux rigidus of left foot Hallux rigidus of right foot Type 2 diabetes mellitus with diabetic polyneuropathy, 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 ([facility]) Pain due to onychomycosis of toenails of both feet Verruca plantaris Plantar wart Foot pain, left Pain in soft tissues of limb Foot pain, right Pain in soft tissues of limb documented in this encounter [facility]* Diagnosis Type 2 diabetes mellitus without complication, without long-term current use of insulin- Primary Hyperlipidemia, unspecified hyperlipidemia type ([facility]) BREONNA (generalized anxiety disorder) ([facility]) Generalized anxiety disorder Primary hypertension ([facility]) Unspecified essential hypertension Type 2 diabetes mellitus with stage 3a chronic kidney disease, without long-term current use of insulin ([facility]) ([facility] Atheros[place] coronary artery of [place] heart without angina pectoris ([facility] Chronic heart failure with preserved ejection fraction ([facility] Current every day smoker BREONNA (generalized anxiety disorder) ([facility])- Primary Generalized anxiety disorder Generalized anxiety disorder ([facility]) Generalized anxiety disorder Type 2 diabetes mellitus with stage 3a chronic kidney disease, without long-term current use of insulin (HCC) ([facility])- Primary Type 2 diabetes mellitus with diabetic polyneuropathy ([facility] Generalized anxiety disorder ([facility] Generalized anxiety disorder BREONNA (generalized anxiety disorder) ([facility]) Generalized anxiety disorder Primary hypertension ([facility]) Unspecified essential hypertension Hyperlipidemia, unspecified hyperlipidemia type ([facility]) Primary hypertension ([facility])- Primary Unspecified essential hypertension Type 2 diabetes mellitus with stage 3a chronic kidney disease, without long-term current use of insulin (HCC) ([facility]) Mixed hyperlipidemia ([facility] Mixed hyperlipidemia Generalized anxiety disorder ([facility]) Generalized anxiety disorder Current every day smoker Type 2 diabetes mellitus with diabetic polyneuropathy, without long-term current use of insulin ([facility]) Dysphagia, unspecified type Choking due to food (regurgitated), initial encounter BREONNA (generalized anxiety disorder) ([facility]) Generalized anxiety disorder Smoker Tobacco use disorder Primary hypertension ([facility])- Primary Unspecified essential hypertension Gastroesophageal reflux disease without esophagitis Esophageal reflux BREONNA (generalized anxiety disorder) ([facility]) Generalized anxiety disorder Hx of psoriasis Type 2 diabetes mellitus with diabetic polyneuropathy ([facility] Generalized anxiety disorder ([facility]) Generalized anxiety disorder BREONNA (generalized anxiety disorder) ([facility]) Generalized anxiety disorder Type 2 diabetes mellitus with stage 3a chronic kidney disease, without long-term current use of insulin ([facility]) ([facility] Primary hypertension ([facility]) Unspecified essential hypertension Gastroesophageal reflux disease without esophagitis Esophageal reflux Hyperlipidemia, unspecified ([facility]) Type 2 diabetes mellitus with stage 3a chronic kidney disease, without long-term current use of insulin ([facility]) ([facility])- Primary Generalized anxiety disorder ([facility] Generalized anxiety disorder Type 2 diabetes mellitus with diabetic polyneuropathy ([facility]) Hyperlipidemia, unspecified ([facility]) Primary hypertension ([facility]) Unspecified essential hypertension Verruca plantaris- Primary Plantar wart Foot pain, left Pain in soft tissues of limb Foot pain, right Pain in soft tissues of limb Hallux rigidus of right foot Hallux rigidus of left foot Type 2 diabetes mellitus with diabetic polyneuropathy, unspecified whether nursing home insulin use ([facility]) documented in this encounter [facility] HealthcareEvaluation note* Diagnosis Type 2 diabetes mellitus without complication, without long-term current use of insulin- Primary Hyperlipidemia, unspecified hyperlipidemia type ([facility]) BREONNA (generalized anxiety disorder) ([facility] Generalized anxiety disorder Primary hypertension ([facility]) Unspecified essential hypertension Type 2 diabetes mellitus with stage 3a chronic kidney disease, without long-term current use of insulin (HCC) ([facility]) Atheros[place] coronary artery of [place] heart without angina pectoris ([facility] Chronic heart failure with preserved ejection fraction ([facility] Current every day smoker BREONNA (generalized anxiety disorder) ([facility])- Primary Generalized anxiety disorder Generalized anxiety disorder ([facility]) Generalized anxiety disorder Type 2 diabetes mellitus with stage 3a chronic kidney disease, without long-term current use of insulin (HCC) ([facility])- Primary Type 2 diabetes mellitus with diabetic polyneuropathy ([facility]) Generalized anxiety disorder ([facility]) Generalized anxiety disorder BREONNA (generalized anxiety disorder) ([facility] Generalized anxiety disorder Primary hypertension ([facility]) Unspecified essential hypertension Hyperlipidemia, unspecified hyperlipidemia type ([facility]) Primary hypertension ([facility])- Primary Unspecified essential hypertension Type 2 diabetes mellitus with stage 3a chronic kidney disease, without long-term current use of insulin (HCC) ([facility]) Mixed hyperlipidemia ([facility] Mixed hyperlipidemia Generalized anxiety disorder ([facility]) Generalized anxiety disorder Current every day smoker Type 2 diabetes mellitus with diabetic polyneuropathy, without long-term current use of insulin ([facility]) Dysphagia, unspecified type Choking due to food (regurgitated), initial encounter BREONNA (generalized anxiety disorder) ([facility]) Generalized anxiety disorder Smoker Tobacco use disorder Primary hypertension ([facility])- Primary Unspecified essential hypertension Gastroesophageal reflux disease without esophagitis Esophageal reflux BREONNA (generalized anxiety disorder) ([facility]) Generalized anxiety disorder Hx of psoriasis Type 2 diabetes mellitus with diabetic polyneuropathy ([facility] Generalized anxiety disorder ([facility]) Generalized anxiety disorder BREONNA (generalized anxiety disorder) ([facility]) Generalized anxiety disorder Type 2 diabetes mellitus with stage 3a chronic kidney disease, without long-term current use of insulin (HCC) ([facility]) Primary hypertension ([facility]) Unspecified essential hypertension Gastroesophageal reflux disease without esophagitis Esophageal reflux Hyperlipidemia, unspecified ([facility]) Type 2 diabetes mellitus with stage 3a chronic kidney disease, without long-term current use of insulin (HCC) ([facility])- Primary Generalized anxiety disorder ([facility] Generalized anxiety disorder Type 2 diabetes mellitus with diabetic polyneuropathy ([facility]) Hyperlipidemia, unspecified ([facility]) Primary hypertension ([facility]) Unspecified essential hypertension Contusion of left foot, initial encounter- Primary Verruca plantaris Plantar wart Foot pain, left Pain in soft tissues of limb Foot pain, right Pain in soft tissues of limb Type 2 diabetes mellitus with diabetic polyneuropathy, unspecified whether nursing home insulin use ([facility]) documented in this encounter [facility] HealthcareEvaluation note* Diagnosis Type 2 diabetes mellitus without complication, without long-term current use of insulin- Primary Hyperlipidemia, unspecified hyperlipidemia type ([facility]) BREONNA (generalized anxiety disorder) ([facility]) Generalized anxiety disorder Primary hypertension ([facility]) Unspecified essential hypertension Type 2 diabetes mellitus with stage 3a chronic kidney disease, without long-term current use of insulin ([facility]) ([facility] Atherosclerosis [place] coronary artery of [place] heart without angina pectoris ([facility]) Chronic heart failure with preserved ejection fraction ([facility] Current every day smoker BREONNA (generalized anxiety disorder) ([facility])- Primary Generalized anxiety disorder Generalized anxiety disorder ([facility]) Generalized anxiety disorder Type 2 diabetes mellitus with stage 3a chronic kidney disease, without long-term current use of insulin ([facility]) ([facility])- Primary Type 2 diabetes mellitus with diabetic polyneuropathy ([facility] Generalized anxiety disorder ([facility] Generalized anxiety disorder BREONNA (generalized anxiety disorder) ([facility]) Generalized anxiety disorder Primary hypertension ([facility]) Unspecified essential hypertension Hyperlipidemia, unspecified hyperlipidemia type ([facility]) Primary hypertension ([facility])- Primary Unspecified essential hypertension Type 2 diabetes mellitus with stage 3a chronic kidney disease, without long-term current use of insulin ([facility]) ([facility] Mixed hyperlipidemia ([facility]) Mixed hyperlipidemia Generalized anxiety disorder ([facility]) Generalized anxiety disorder Current every day smoker Type 2 diabetes mellitus with diabetic polyneuropathy, without long-term current use of insulin ([facility]) Dysphagia, unspecified type Choking due to food (regurgitated), initial encounter BREONNA (generalized anxiety disorder) ([facility]) Generalized anxiety disorder Smoker Tobacco use disorder Primary hypertension ([facility])- Primary Unspecified essential hypertension Gastroesophageal reflux disease without esophagitis Esophageal reflux BREONNA (generalized anxiety disorder) ([facility]) Generalized anxiety disorder Hx of psoriasis Type 2 diabetes mellitus with diabetic polyneuropathy ([facility] Generalized anxiety disorder ([facility]) Generalized anxiety disorder BREONNA (generalized anxiety disorder) ([facility]) Generalized anxiety disorder Type 2 diabetes mellitus with stage 3a chronic kidney disease, without long-term current use of insulin (HCC) ([facility]) Primary hypertension ([facility]) Unspecified essential hypertension Gastroesophageal reflux disease without esophagitis Esophageal reflux Hyperlipidemia, unspecified ([facility]) Type 2 diabetes mellitus with stage 3a chronic kidney disease, without long-term current use of insulin (HCC) ([facility])- Primary Generalized anxiety disorder ([facility] Generalized anxiety disorder Type 2 diabetes mellitus with diabetic polyneuropathy ([facility]) Hyperlipidemia, unspecified ([facility]) Primary hypertension ([facility]) Unspecified essential hypertension Contusion of left foot, initial encounter- Primary Verruca plantaris Plantar wart Foot pain, left Pain in soft tissues of limb Foot pain, right Pain in soft tissues of limb Type 2 diabetes mellitus with diabetic polyneuropathy, 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 ([facility]) documented in this encounter [facility] HealthcareEvaluation note* Diagnosis Type 2 diabetes mellitus without complication, without long-term current use of insulin- Primary Hyperlipidemia, unspecified hyperlipidemia type ([facility]) BREONNA (generalized anxiety disorder) ([facility]) Generalized anxiety disorder Primary hypertension ([facility]) Unspecified essential hypertension Type 2 diabetes mellitus with stage 3a chronic kidney disease, without long-term current use of insulin (HCC) ([facility]) Atherosclerosis [place] coronary artery of [place] heart without angina pectoris ([facility] Chronic heart failure with preserved ejection fraction ([facility]) Current every day smoker BREONNA (generalized anxiety disorder) ([facility])- Primary Generalized anxiety disorder Generalized anxiety disorder ([facility]) Generalized anxiety disorder Type 2 diabetes mellitus with stage 3a chronic kidney disease, without long-term current use of insulin (HCC) ([facility])- Primary Type 2 diabetes mellitus with diabetic polyneuropathy ([facility] Generalized anxiety disorder ([facility]) Generalized anxiety disorder BREONNA (generalized anxiety disorder) ([facility]) Generalized anxiety disorder Primary hypertension ([facility]) Unspecified essential hypertension Hyperlipidemia, unspecified hyperlipidemia type ([facility]) Primary hypertension ([facility])- Primary Unspecified essential hypertension Type 2 diabetes mellitus with stage 3a chronic kidney disease, without long-term current use of insulin (HCC) ([facility]) Mixed hyperlipidemia ([facility]) Mixed hyperlipidemia Generalized anxiety disorder ([facility]) Generalized anxiety disorder Current every day smoker Type 2 diabetes mellitus with diabetic polyneuropathy, without long-term current use of insulin ([facility]) Dysphagia, unspecified type Choking due to food (regurgitated), initial encounter BREONNA (generalized anxiety disorder) ([facility]) Generalized anxiety disorder Smoker Tobacco use disorder Primary hypertension ([facility])- Primary Unspecified essential hypertension Gastroesophageal reflux disease without esophagitis Esophageal reflux BREONNA (generalized anxiety disorder) ([facility]) Generalized anxiety disorder Hx of psoriasis Type 2 diabetes mellitus with diabetic polyneuropathy ([facility] Generalized anxiety disorder ([facility]) Generalized anxiety disorder BREONNA (generalized anxiety disorder) ([facility]) Generalized anxiety disorder Type 2 diabetes mellitus with stage 3a chronic kidney disease, without long-term current use of insulin ([facility]) ([facility] Primary hypertension ([facility]) Unspecified essential hypertension Gastroesophageal reflux disease without esophagitis Esophageal reflux Hyperlipidemia, unspecified ([facility]) Type 2 diabetes mellitus with stage 3a chronic kidney disease, without long-term current use of insulin ([facility]) ([facility])- Primary Generalized anxiety disorder ([facility] Generalized anxiety disorder Type 2 diabetes mellitus with diabetic polyneuropathy ([facility]) Hyperlipidemia, unspecified ([facility]) Primary hypertension ([facility]) Unspecified essential hypertension Type 2 diabetes mellitus with stage 3a chronic kidney disease, without long-term current use of insulin ([facility]) ([facility])- Primary Type 2 diabetes mellitus with diabetic polyneuropathy, unspecified whether nursing home insulin use ([facility] Atheros[place] coronary artery [place] heart without angina pectoris ([facility]) Chronic heart failure with preserved ejection fraction ([facility]) Primary hypertension ([facility]) Unspecified essential hypertension Gastroesophageal reflux disease, unspecified whether esophagitis present CKD (chronic kidney disease), symptom management only, stage 3 (moderate) ([facility]) ([facility]) Obesity (BMI 30-39.9) Current every day smoker BREONNA (generalized anxiety disorder) ([facility]) Generalized anxiety disorder Mixed hyperlipidemia ([facility]) Mixed hyperlipidemia Tobacco dependence Tobacco use disorder Prostate cancer screening Special screening for malignant neoplasm of prostate Generalized anxiety disorder ([facility]) Generalized anxiety disorder Gastroesophageal reflux disease without esophagitis Esophageal reflux Hyperlipidemia, unspecified ([facility]) Verruca plantaris- Primary Plantar wart Foot pain, left Pain in soft tissues of limb Foot pain, right Pain in soft tissues of limb Type 2 diabetes mellitus with diabetic polyneuropathy, unspecified whether nursing home insulin use ([facility]) documented in this encounter [facility] HealthcareEvaluation note* Diagnosis Type 2 diabetes mellitus without complication, without long-term current use of insulin- Primary Hyperlipidemia, unspecified hyperlipidemia type ([facility]) BREONNA (generalized anxiety disorder) ([facility]) Generalized anxiety disorder Primary hypertension ([facility]) Unspecified essential hypertension Type 2 diabetes mellitus with stage 3a chronic kidney disease, without long-term current use of insulin ([facility]) ([facility] Atheros[place] coronary artery of [place] heart without angina pectoris ([facility] Chronic heart failure with preserved ejection fraction ([facility] Current every day smoker BREONNA (generalized anxiety disorder) ([facility])- Primary Generalized anxiety disorder Generalized anxiety disorder ([facility]) Generalized anxiety disorder Type 2 diabetes mellitus with stage 3a chronic kidney disease, without long-term current use of insulin ([facility]) ([facility])- Primary Type 2 diabetes mellitus with diabetic polyneuropathy ([facility] Generalized anxiety disorder ([facility] Generalized anxiety disorder BREONNA (generalized anxiety disorder) ([facility]) Generalized anxiety disorder Primary hypertension ([facility]) Unspecified essential hypertension Hyperlipidemia, unspecified hyperlipidemia type ([facility]) Primary hypertension ([facility])- Primary Unspecified essential hypertension Type 2 diabetes mellitus with stage 3a chronic kidney disease, without long-term current use of insulin ([facility]) ([facility]) Mixed hyperlipidemia ([facility] Mixed hyperlipidemia Generalized anxiety disorder ([facility]) Generalized anxiety disorder Current every day smoker Type 2 diabetes mellitus with diabetic polyneuropathy, without long-term current use of insulin ([facility]) Dysphagia, unspecified type Choking due to food (regurgitated), initial encounter BREONNA (generalized anxiety disorder) ([facility]) Generalized anxiety disorder Smoker Tobacco use disorder Primary hypertension ([facility])- Primary Unspecified essential hypertension Gastroesophageal reflux disease without esophagitis Esophageal reflux BREONNA (generalized anxiety disorder) ([facility]) Generalized anxiety disorder Hx of psoriasis Type 2 diabetes mellitus with diabetic polyneuropathy ([facility] Generalized anxiety disorder ([facility]) Generalized anxiety disorder BREONNA (generalized anxiety disorder) ([facility]) Generalized anxiety disorder Type 2 diabetes mellitus with stage 3a chronic kidney disease, without long-term current use of insulin ([facility]) ([facility]) Primary hypertension ([facility]) Unspecified essential hypertension Gastroesophageal reflux disease without esophagitis Esophageal reflux Hyperlipidemia, unspecified ([facility]) Type 2 diabetes mellitus with stage 3a chronic kidney disease, without long-term current use of insulin ([facility]) ([facility])- Primary Generalized anxiety disorder ([facility] Generalized anxiety disorder Type 2 diabetes mellitus with diabetic polyneuropathy ([facility]) Hyperlipidemia, unspecified ([facility]) Primary hypertension ([facility]) Unspecified essential hypertension Type 2 diabetes mellitus with stage 3a chronic kidney disease, without long-term current use of insulin ([facility]) ([facility])- Primary Type 2 diabetes mellitus with diabetic polyneuropathy, unspecified whether nursing home insulin use ([facility] Atheros[place] coronary artery of [place] heart without angina pectoris ([facility] Chronic heart failure with preserved ejection fraction ([facility]) Primary hypertension ([facility]) Unspecified essential hypertension Gastroesophageal reflux disease, unspecified whether esophagitis present CKD (chronic kidney disease), symptom management only, stage 3 (moderate) ([facility]) ([facility]) Obesity (BMI 30-39.9) Current every day smoker BREONNA (generalized anxiety disorder) ([facility]) Generalized anxiety disorder Mixed hyperlipidemia ([facility]) Mixed hyperlipidemia Tobacco dependence Tobacco use disorder Prostate cancer screening Special screening for malignant neoplasm of prostate Generalized anxiety disorder ([facility]) Generalized anxiety disorder Gastroesophageal reflux disease without esophagitis Esophageal reflux Hyperlipidemia, unspecified ([facility]) Open wounds involving multiple regions of upper extremity- Primary Verruca plantaris- Primary Plantar wart Foot pain, left Pain in soft tissues of limb Foot pain, right Pain in soft tissues of limb Hallux rigidus of right foot Hallux rigidus of left foot Type 2 diabetes mellitus with diabetic polyneuropathy, unspecified whether nursing home insulin use ([facility]) Pain due to onychomycosis of toenails of both feet documented in this encounter [facility] Healthcare[facility] note* Diagnosis Type 2 diabetes mellitus without complication, without long-term current use of insulin ([facility])- Primary Hyperlipidemia, unspecified hyperlipidemia type BREONNA (generalized anxiety disorder) Generalized anxiety disorder Primary hypertension Unspecified essential hypertension Type 2 diabetes mellitus with stage 3a chronic kidney disease, without long-term current use of insulin ([facility]) Atherosclerosis [place] coronary artery [place] heart without angina pectoris Chronic heart failure with preserved ejection fraction ([facility]) Current every day smoker BREONNA (generalized anxiety disorder)- Primary Generalized anxiety disorder Generalized anxiety disorder Generalized anxiety disorder Type 2 diabetes mellitus with stage 3a chronic kidney disease, without long-term current use of insulin (HCC)- Primary Type 2 diabetes mellitus with diabetic polyneuropathy (HCC) Generalized anxiety disorder Generalized anxiety disorder BREONNA (generalized anxiety disorder) Generalized anxiety disorder Primary hypertension Unspecified essential hypertension Hyperlipidemia, unspecified hyperlipidemia type Primary hypertension- Primary Unspecified essential hypertension Type 2 diabetes mellitus with stage 3a chronic kidney disease, without long-term current use of insulin (HCC) Mixed hyperlipidemia Mixed hyperlipidemia Generalized anxiety disorder Generalized anxiety disorder Current every day smoker Type 2 diabetes mellitus with diabetic polyneuropathy, without long-term current use of insulin (HCC) Dysphagia, unspecified type Choking due to food (regurgitated), initial encounter BREONNA (generalized anxiety disorder) Generalized anxiety disorder Smoker Tobacco use disorder Primary hypertension- Primary Unspecified essential hypertension Gastroesophageal reflux disease without esophagitis Esophageal reflux BREONNA (generalized anxiety disorder) Generalized anxiety disorder Hx of psoriasis Type 2 diabetes mellitus with diabetic polyneuropathy (HCC) Generalized anxiety disorder Generalized anxiety disorder BREONNA (generalized anxiety disorder) Generalized anxiety disorder Type 2 diabetes mellitus with stage 3a chronic kidney disease, without long-term current use of insulin (HCC) Primary hypertension Unspecified essential hypertension Gastroesophageal reflux disease without esophagitis Esophageal reflux Hyperlipidemia, unspecified Type 2 diabetes mellitus with stage 3a chronic kidney disease, without long-term current use of insulin (HCC)- Primary Generalized anxiety disorder Generalized anxiety disorder Type 2 diabetes mellitus with diabetic polyneuropathy (HCC) Hyperlipidemia, unspecified Primary hypertension Unspecified essential hypertension Type 2 diabetes mellitus with stage 3a chronic kidney disease, without long-term current use of insulin (HCC)- Primary Type 2 diabetes mellitus with diabetic polyneuropathy, unspecified whether nursing home insulin use (HCC) Atherosclerosis [place] coronary artery [place] heart without angina pectoris Chronic heart failure with preserved ejection fraction (HCC) Primary hypertension Unspecified essential hypertension Gastroesophageal reflux disease, unspecified whether esophagitis present CKD (chronic kidney disease), symptom management only, stage 3 (moderate) ([facility]) Obesity (BMI 30-39.9) Current every day smoker BREONNA (generalized anxiety disorder) Generalized anxiety disorder Mixed hyperlipidemia Mixed hyperlipidemia Tobacco dependence Tobacco use disorder Prostate cancer screening Special screening for malignant neoplasm of prostate Generalized anxiety disorder Generalized anxiety disorder Gastroesophageal reflux disease without esophagitis Esophageal reflux Hyperlipidemia, unspecified Elevated liver function tests- Primary Other abnormal blood chemistry documented in this encounter [facility]* Diagnosis Type 2 diabetes mellitus without complication, without long-term current use of insulin (HCC)- Primary Hyperlipidemia, unspecified hyperlipidemia type BREONNA (generalized anxiety disorder) Generalized anxiety disorder Primary hypertension Unspecified essential hypertension Type 2 diabetes mellitus with stage 3a chronic kidney disease, without long-term current use of insulin ([facility]) Atherosclerosis [place] coronary artery of [place] heart without angina pectoris Chronic heart failure with preserved ejection fraction (HCC) Current every day smoker BREONNA (generalized anxiety disorder)- Primary Generalized anxiety disorder Generalized anxiety disorder Generalized anxiety disorder Type 2 diabetes mellitus with stage 3a chronic kidney disease, without long-term current use of insulin ([facility])- Primary Type 2 diabetes mellitus with diabetic polyneuropathy ([facility]) Generalized anxiety disorder Generalized anxiety disorder BREONNA (generalized anxiety disorder) Generalized anxiety disorder Primary hypertension Unspecified essential hypertension Hyperlipidemia, unspecified hyperlipidemia type Primary hypertension- Primary Unspecified essential hypertension Type 2 diabetes mellitus with stage 3a chronic kidney disease, without long-term current use of insulin ([facility]) Mixed hyperlipidemia Mixed hyperlipidemia Generalized anxiety disorder Generalized anxiety disorder Current every day smoker Type 2 diabetes mellitus with diabetic polyneuropathy, without long-term current use of insulin ([facility]) Dysphagia, unspecified type Choking due to food (regurgitated), initial encounter BREONNA (generalized anxiety disorder) Generalized anxiety disorder Smoker Tobacco use disorder Primary hypertension- Primary Unspecified essential hypertension Gastroesophageal reflux disease without esophagitis Esophageal reflux BREONNA (generalized anxiety disorder) Generalized anxiety disorder Hx of psoriasis Type 2 diabetes mellitus with diabetic polyneuropathy ([facility]) Generalized anxiety disorder Generalized anxiety disorder BREONNA (generalized anxiety disorder) Generalized anxiety disorder Type 2 diabetes mellitus with stage 3a chronic kidney disease, without long-term current use of insulin ([facility]) Primary hypertension Unspecified essential hypertension Gastroesophageal reflux disease without esophagitis Esophageal reflux Hyperlipidemia, unspecified Type 2 diabetes mellitus with stage 3a chronic kidney disease, without long-term current use of insulin ([facility])- Primary Generalized anxiety disorder Generalized anxiety disorder Type 2 diabetes mellitus with diabetic polyneuropathy ([facility]) Hyperlipidemia, unspecified Primary hypertension Unspecified essential hypertension Type 2 diabetes mellitus with stage 3a chronic kidney disease, without long-term current use of insulin ([facility])- Primary Type 2 diabetes mellitus with diabetic polyneuropathy, 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 ([facility]) Atherosclerosis [place] coronary artery of [place] heart without angina pectoris Chronic heart failure with preserved ejection fraction ([facility]) Primary hypertension Unspecified essential hypertension Gastroesophageal reflux disease, unspecified whether esophagitis present CKD (chronic kidney disease), symptom management only, stage 3 (moderate) ([facility]) Obesity (BMI 30-39.9) Current every day smoker BREONNA (generalized anxiety disorder) Generalized anxiety disorder Mixed hyperlipidemia Mixed hyperlipidemia Tobacco dependence Tobacco use disorder Prostate cancer screening Special screening for malignant neoplasm of prostate Generalized anxiety disorder Generalized anxiety disorder Gastroesophageal reflux disease without esophagitis Esophageal reflux Hyperlipidemia, unspecified Chronic obstructive pulmonary disease, unspecified COPD type (HCC)- Primary Primary hypertension Unspecified essential hypertension Elevated liver function tests Other abnormal blood chemistry Obesity (BMI 30-39.9) Type 2 diabetes mellitus with stage 3a chronic kidney disease, without long-term current use of insulin ([facility]) Tobacco dependence Tobacco use disorder Psoriasis vulgaris- Primary Other psoriasis Neoplasm of unspecified behavior of bone, soft tissue, and skin documented in this encounter [facility]* Diagnosis Type 2 diabetes mellitus without complication, without long-term current use of insulin ([facility])- Primary Hyperlipidemia, unspecified hyperlipidemia type BREONNA (generalized anxiety disorder) Generalized anxiety disorder Primary hypertension Unspecified essential hypertension Type 2 diabetes mellitus with stage 3a chronic kidney disease, without long-term current use of insulin ([facility]) Atherosclerosis [place] coronary artery of [place] heart without angina pectoris Chronic heart failure with preserved ejection fraction ([facility]) Current every day smoker BREONNA (generalized anxiety disorder)- Primary Generalized anxiety disorder Generalized anxiety disorder Generalized anxiety disorder Type 2 diabetes mellitus with stage 3a chronic kidney disease, without long-term current use of insulin ([facility])- Primary Type 2 diabetes mellitus with diabetic polyneuropathy ([facility]) Generalized anxiety disorder Generalized anxiety disorder BREONNA (generalized anxiety disorder) Generalized anxiety disorder Primary hypertension Unspecified essential hypertension Hyperlipidemia, unspecified hyperlipidemia type Primary hypertension- Primary Unspecified essential hypertension Type 2 diabetes mellitus with stage 3a chronic kidney disease, without long-term current use of insulin ([facility]) Mixed hyperlipidemia Mixed hyperlipidemia Generalized anxiety disorder Generalized anxiety disorder Current every day smoker Type 2 diabetes mellitus with diabetic polyneuropathy, without long-term current use of insulin (HCC) Dysphagia, unspecified type Choking due to food (regurgitated), initial encounter BREONNA (generalized anxiety disorder) Generalized anxiety disorder Smoker Tobacco use disorder Primary hypertension- Primary Unspecified essential hypertension Gastroesophageal reflux disease without esophagitis Esophageal reflux BREONNA (generalized anxiety disorder) Generalized anxiety disorder Hx of psoriasis Type 2 diabetes mellitus with diabetic polyneuropathy (HCC) Generalized anxiety disorder Generalized anxiety disorder BREONNA (generalized anxiety disorder) Generalized anxiety disorder Type 2 diabetes mellitus with stage 3a chronic kidney disease, without long-term current use of insulin (HCC) Primary hypertension Unspecified essential hypertension Gastroesophageal reflux disease without esophagitis Esophageal reflux Hyperlipidemia, unspecified Type 2 diabetes mellitus with stage 3a chronic kidney disease, without long-term current use of insulin (HCC)- Primary Generalized anxiety disorder Generalized anxiety disorder Type 2 diabetes mellitus with diabetic polyneuropathy (HCC) Hyperlipidemia, unspecified Primary hypertension Unspecified essential hypertension Type 2 diabetes mellitus with stage 3a chronic kidney disease, without long-term current use of insulin (HCC)- Primary Type 2 diabetes mellitus with diabetic polyneuropathy, unspecified whether nursing home insulin use (HCC) Atherosclerosis [place] coronary artery of [place] heart without angina pectoris Chronic heart failure with preserved ejection fraction (HCC) Primary hypertension Unspecified essential hypertension Gastroesophageal reflux disease, unspecified whether esophagitis present CKD (chronic kidney disease), symptom management only, stage 3 (moderate) ([facility]) Obesity (BMI 30-39.9) Current every day smoker BREONNA (generalized anxiety disorder) Generalized anxiety disorder Mixed hyperlipidemia Mixed hyperlipidemia Tobacco dependence Tobacco use disorder Prostate cancer screening Special screening for malignant neoplasm of prostate Generalized anxiety disorder Generalized anxiety disorder Gastroesophageal reflux disease without esophagitis Esophageal reflux Hyperlipidemia, unspecified Type 2 diabetes mellitus with stage 3a chronic kidney disease, without long-term current use of insulin (HCC)- Primary Chronic obstructive pulmonary disease, unspecified COPD type (HCC) Primary hypertension Unspecified essential hypertension Elevated liver function tests Other abnormal blood chemistry Obesity (BMI 30-39.9) Tobacco dependence Tobacco use disorder Esophageal dysphagia Dysphagia, pharyngoesophageal phase documented in this encounter [facility]* Diagnosis Type 2 diabetes mellitus without complication, without long-term current use of insulin (HCC)- Primary Hyperlipidemia, unspecified hyperlipidemia type BREONNA (generalized anxiety disorder) Generalized anxiety disorder Primary hypertension Unspecified essential hypertension Type 2 diabetes mellitus with stage 3a chronic kidney disease, without long-term current use of insulin (HCC) Atherosclerosis [place] coronary artery of [place] heart without angina pectoris Chronic heart failure with preserved ejection fraction (HCC) Current every day smoker BREONNA (generalized anxiety disorder)- Primary Generalized anxiety disorder Generalized anxiety disorder Generalized anxiety disorder Type 2 diabetes mellitus with stage 3a chronic kidney disease, without long-term current use of insulin (HCC)- Primary Type 2 diabetes mellitus with diabetic polyneuropathy (HCC) Generalized anxiety disorder Generalized anxiety disorder BREONNA (generalized anxiety disorder) Generalized anxiety disorder Primary hypertension Unspecified essential hypertension Hyperlipidemia, unspecified hyperlipidemia type Primary hypertension- Primary Unspecified essential hypertension Type 2 diabetes mellitus with stage 3a chronic kidney disease, without long-term current use of insulin (HCC) Mixed hyperlipidemia Mixed hyperlipidemia Generalized anxiety disorder Generalized anxiety disorder Current every day smoker Type 2 diabetes mellitus with diabetic polyneuropathy, without long-term current use of insulin (HCC) Dysphagia, unspecified type Choking due to food (regurgitated), initial encounter BREONNA (generalized anxiety disorder) Generalized anxiety disorder Smoker Tobacco use disorder Primary hypertension- Primary Unspecified essential hypertension Gastroesophageal reflux disease without esophagitis Esophageal reflux BREONNA (generalized anxiety disorder) Generalized anxiety disorder Hx of psoriasis Type 2 diabetes mellitus with diabetic polyneuropathy (HCC) Generalized anxiety disorder Generalized anxiety disorder BREONNA (generalized anxiety disorder) Generalized anxiety disorder Type 2 diabetes mellitus with stage 3a chronic kidney disease, without long-term current use of insulin ([facility]) Primary hypertension Unspecified essential hypertension Gastroesophageal reflux disease without esophagitis Esophageal reflux Hyperlipidemia, unspecified Type 2 diabetes mellitus with stage 3a chronic kidney disease, without long-term current use of insulin ([facility])- Primary Generalized anxiety disorder Generalized anxiety disorder Type 2 diabetes mellitus with diabetic polyneuropathy ([facility]) Hyperlipidemia, unspecified Primary hypertension Unspecified essential hypertension Type 2 diabetes mellitus with stage 3a chronic kidney disease, without long-term current use of insulin ([facility])- Primary Type 2 diabetes mellitus with diabetic polyneuropathy, unspecified whether nursing home insulin use ([facility]) Atherosclerosis [place] coronary artery of [place] heart without angina pectoris Chronic heart failure with preserved ejection fraction ([facility]) Primary hypertension Unspecified essential hypertension Gastroesophageal reflux disease, unspecified whether esophagitis present CKD (chronic kidney disease), symptom management only, stage 3 (moderate) ([facility] Obesity (BMI 30-39.9) Current every day smoker BREONNA (generalized anxiety disorder) Generalized anxiety disorder Mixed hyperlipidemia Mixed hyperlipidemia Tobacco dependence Tobacco use disorder Prostate cancer screening Special screening for malignant neoplasm of prostate Generalized anxiety disorder Generalized anxiety disorder Gastroesophageal reflux disease without esophagitis Esophageal reflux Hyperlipidemia, unspecified Type 2 diabetes mellitus with stage 3a chronic kidney disease, without long-term current use of insulin ([facility])- Primary Chronic obstructive pulmonary disease, unspecified COPD type ([facility]) Primary hypertension Unspecified essential hypertension Elevated liver function tests Other abnormal blood chemistry Obesity (BMI 30-39.9) Tobacco dependence Tobacco use disorder Esophageal dysphagia Dysphagia, pharyngoesophageal phase Type 2 diabetes mellitus with diabetic polyneuropathy ([facility]) Verruca plantaris- Primary Plantar wart Foot pain, left Pain in soft tissues of limb Foot pain, right Pain in soft tissues of limb Type 2 diabetes mellitus with diabetic polyneuropathy, unspecified whether nursing home insulin use (HCC) Pain due to onychomycosis of toenails of both feet documented in this encounter [facility]* Diagnosis Type 2 diabetes mellitus without complication, without long-term current use of insulin (HCC)- Primary Hyperlipidemia, unspecified hyperlipidemia type BREONNA (generalized anxiety disorder) Generalized anxiety disorder Primary hypertension Unspecified essential hypertension Type 2 diabetes mellitus with stage 3a chronic kidney disease, without long-term current use of insulin (HCC) Atherosclerosis [place] coronary artery of [place] heart without angina pectoris Chronic heart failure with preserved ejection fraction (HCC) Current every day smoker BREONNA (generalized anxiety disorder)- Primary Generalized anxiety disorder Generalized anxiety disorder Generalized anxiety disorder Type 2 diabetes mellitus with stage 3a chronic kidney disease, without long-term current use of insulin (HCC)- Primary Type 2 diabetes mellitus with diabetic polyneuropathy (HCC) Generalized anxiety disorder Generalized anxiety disorder BREONNA (generalized anxiety disorder) Generalized anxiety disorder Primary hypertension Unspecified essential hypertension Hyperlipidemia, unspecified hyperlipidemia type Primary hypertension- Primary Unspecified essential hypertension Type 2 diabetes mellitus with stage 3a chronic kidney disease, without long-term current use of insulin (HCC) Mixed hyperlipidemia Mixed hyperlipidemia Generalized anxiety disorder Generalized anxiety disorder Current every day smoker Type 2 diabetes mellitus with diabetic polyneuropathy, without long-term current use of insulin (HCC) Dysphagia, unspecified type Choking due to food (regurgitated), initial encounter BREONNA (generalized anxiety disorder) Generalized anxiety disorder Smoker Tobacco use disorder Primary hypertension- Primary Unspecified essential hypertension Gastroesophageal reflux disease without esophagitis Esophageal reflux BREONNA (generalized anxiety disorder) Generalized anxiety disorder Hx of psoriasis Type 2 diabetes mellitus with diabetic polyneuropathy (HCC) Generalized anxiety disorder Generalized anxiety disorder BREONNA (generalized anxiety disorder) Generalized anxiety disorder Type 2 diabetes mellitus with stage 3a chronic kidney disease, without long-term current use of insulin (HCC) Primary hypertension Unspecified essential hypertension Gastroesophageal reflux disease without esophagitis Esophageal reflux Hyperlipidemia, unspecified Type 2 diabetes mellitus with stage 3a chronic kidney disease, without long-term current use of insulin (HCC)- Primary Generalized anxiety disorder Generalized anxiety disorder Type 2 diabetes mellitus with diabetic polyneuropathy (HCC) Hyperlipidemia, unspecified Primary hypertension Unspecified essential hypertension Type 2 diabetes mellitus with stage 3a chronic kidney disease, without long-term current use of insulin (HCC)- Primary Type 2 diabetes mellitus with diabetic polyneuropathy, unspecified whether nursing home insulin use (HCC) Atherosclerosis [place] coronary artery of [place] heart without angina pectoris Chronic heart failure with preserved ejection fraction (HCC) Primary hypertension Unspecified essential hypertension Gastroesophageal reflux disease, unspecified whether esophagitis present CKD (chronic kidney disease), symptom management only, stage 3 (moderate) ([facility]) Obesity (BMI 30-39.9) Current every day smoker BREONNA (generalized anxiety disorder) Generalized anxiety disorder Mixed hyperlipidemia Mixed hyperlipidemia Tobacco dependence Tobacco use disorder Prostate cancer screening Special screening for malignant neoplasm of prostate Generalized anxiety disorder Generalized anxiety disorder Gastroesophageal reflux disease without esophagitis Esophageal reflux Hyperlipidemia, unspecified Type 2 diabetes mellitus with stage 3a chronic kidney disease, without long-term current use of insulin (HCC)- Primary Chronic obstructive pulmonary disease, unspecified COPD type (HCC) Primary hypertension Unspecified essential hypertension Elevated liver function tests Other abnormal blood chemistry Obesity (BMI 30-39.9) Tobacco dependence Tobacco use disorder Esophageal dysphagia Dysphagia, pharyngoesophageal phase Gastroesophageal reflux disease without esophagitis Esophageal reflux Verruca plantaris- Primary Plantar wart Foot pain, left Pain in soft tissues of limb Foot pain, right Pain in soft tissues of limb Type 2 diabetes mellitus with diabetic polyneuropathy, unspecified whether nursing home insulin use ([facility]) Pain due to onychomycosis of toenails of both feet documented in this encounter [facility]* Diagnosis Type 2 diabetes mellitus without complication, without long-term current use of insulin (HCC)- Primary Hyperlipidemia, unspecified hyperlipidemia type BREONNA (generalized anxiety disorder) Generalized anxiety disorder Primary hypertension Unspecified essential hypertension Type 2 diabetes mellitus with stage 3a chronic kidney disease, without long-term current use of insulin (HCC) Atheros[place] coronary artery of [place] heart without angina pectoris Chronic heart failure with preserved ejection fraction (HCC) Current every day smoker BREONNA (generalized anxiety disorder)- Primary Generalized anxiety disorder Generalized anxiety disorder Generalized anxiety disorder Type 2 diabetes mellitus with stage 3a chronic kidney disease, without long-term current use of insulin (HCC)- Primary Type 2 diabetes mellitus with diabetic polyneuropathy (HCC) Generalized anxiety disorder Generalized anxiety disorder BREONNA (generalized anxiety disorder) Generalized anxiety disorder Primary hypertension Unspecified essential hypertension Hyperlipidemia, unspecified hyperlipidemia type Primary hypertension- Primary Unspecified essential hypertension Type 2 diabetes mellitus with stage 3a chronic kidney disease, without long-term current use of insulin (HCC) Mixed hyperlipidemia Mixed hyperlipidemia Generalized anxiety disorder Generalized anxiety disorder Current every day smoker Type 2 diabetes mellitus with diabetic polyneuropathy, without long-term current use of insulin (HCC) Dysphagia, unspecified type Choking due to food (regurgitated), initial encounter BREONNA (generalized anxiety disorder) Generalized anxiety disorder Smoker Tobacco use disorder Primary hypertension- Primary Unspecified essential hypertension Gastroesophageal reflux disease without esophagitis Esophageal reflux BREONNA (generalized anxiety disorder) Generalized anxiety disorder Hx of psoriasis Type 2 diabetes mellitus with diabetic polyneuropathy (HCC) Generalized anxiety disorder Generalized anxiety disorder BREONNA (generalized anxiety disorder) Generalized anxiety disorder Type 2 diabetes mellitus with stage 3a chronic kidney disease, without long-term current use of insulin ([facility]) Primary hypertension Unspecified essential hypertension Gastroesophageal reflux disease without esophagitis Esophageal reflux Hyperlipidemia, unspecified Type 2 diabetes mellitus with stage 3a chronic kidney disease, without long-term current use of insulin ([facility])- Primary Generalized anxiety disorder Generalized anxiety disorder Type 2 diabetes mellitus with diabetic polyneuropathy ([facility]) Hyperlipidemia, unspecified Primary hypertension Unspecified essential hypertension Type 2 diabetes mellitus with stage 3a chronic kidney disease, without long-term current use of insulin ([facility])- Primary Type 2 diabetes mellitus with diabetic polyneuropathy, 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 ([facility]) Atherosclerosis of [place] coronary artery of [place] heart without angina pectoris Chronic heart failure with preserved ejection fraction ([facility]) Primary hypertension Unspecified essential hypertension Gastroesophageal reflux disease, unspecified whether esophagitis present CKD (chronic kidney disease), symptom management only, stage 3 (moderate) ([facility]) Obesity (BMI 30-39.9) Current every day smoker BREONNA (generalized anxiety disorder) Generalized anxiety disorder Mixed hyperlipidemia Mixed hyperlipidemia Tobacco dependence Tobacco use disorder Prostate cancer screening Special screening for malignant neoplasm of prostate Generalized anxiety disorder Generalized anxiety disorder Gastroesophageal reflux disease without esophagitis Esophageal reflux Hyperlipidemia, unspecified Type 2 diabetes mellitus with stage 3a chronic kidney disease, without long-term current use of insulin ([facility])- Primary Chronic obstructive pulmonary disease, unspecified COPD type ([facility]) Primary hypertension Unspecified essential hypertension Elevated liver function tests Other abnormal blood chemistry Obesity (BMI 30-39.9) Tobacco dependence Tobacco use disorder Esophageal dysphagia Dysphagia, pharyngoesophageal phase Verruca plantaris- Primary Plantar wart Foot pain, left Pain in soft tissues of limb Foot pain, right Pain in soft tissues of limb Type 2 diabetes mellitus with diabetic polyneuropathy, 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 ([facility]) Pain due to onychomycosis of toenails of both feet documented in this encounter [facility] HealthcareEvaluation note* Diagnosis Type 2 diabetes mellitus without complication, without long-term current use of insulin (HCC)- Primary Hyperlipidemia, unspecified hyperlipidemia type BREONNA (generalized anxiety disorder) Generalized anxiety disorder Primary hypertension Unspecified essential hypertension Type 2 diabetes mellitus with stage 3a chronic kidney disease, without long-term current use of insulin (HCC) Atherosclerosis of [place] coronary artery of [place] heart without angina pectoris Chronic heart failure with preserved ejection fraction (HCC) Current every day smoker BREONNA (generalized anxiety disorder)- Primary Generalized anxiety disorder Generalized anxiety disorder Generalized anxiety disorder Type 2 diabetes mellitus with stage 3a chronic kidney disease, without long-term current use of insulin (HCC)- Primary Type 2 diabetes mellitus with diabetic polyneuropathy (HCC) Generalized anxiety disorder Generalized anxiety disorder BREONNA (generalized anxiety disorder) Generalized anxiety disorder Primary hypertension Unspecified essential hypertension Hyperlipidemia, unspecified hyperlipidemia type Primary hypertension- Primary Unspecified essential hypertension Type 2 diabetes mellitus with stage 3a chronic kidney disease, without long-term current use of insulin (HCC) Mixed hyperlipidemia Mixed hyperlipidemia Generalized anxiety disorder Generalized anxiety disorder Current every day smoker Type 2 diabetes mellitus with diabetic polyneuropathy, without long-term current use of insulin (HCC) Dysphagia, unspecified type Choking due to food (regurgitated), initial encounter BREONNA (generalized anxiety disorder) Generalized anxiety disorder Smoker Tobacco use disorder Primary hypertension- Primary Unspecified essential hypertension Gastroesophageal reflux disease without esophagitis Esophageal reflux BREONNA (generalized anxiety disorder) Generalized anxiety disorder Hx of psoriasis Type 2 diabetes mellitus with diabetic polyneuropathy (HCC) Generalized anxiety disorder Generalized anxiety disorder BREONNA (generalized anxiety disorder) Generalized anxiety disorder Type 2 diabetes mellitus with stage 3a chronic kidney disease, without long-term current use of insulin (HCC) Primary hypertension Unspecified essential hypertension Gastroesophageal reflux disease without esophagitis Esophageal reflux Hyperlipidemia, unspecified Type 2 diabetes mellitus with stage 3a chronic kidney disease, without long-term current use of insulin (HCC)- Primary Generalized anxiety disorder Generalized anxiety disorder Type 2 diabetes mellitus with diabetic polyneuropathy (HCC) Hyperlipidemia, unspecified Primary hypertension Unspecified essential hypertension Type 2 diabetes mellitus with stage 3a chronic kidney disease, without long-term current use of insulin (HCC)- Primary Type 2 diabetes mellitus with diabetic polyneuropathy, 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) Atherosclerosis [place] coronary artery of [place] heart without angina pectoris Chronic heart failure with preserved ejection fraction (HCC) Primary hypertension Unspecified essential hypertension Gastroesophageal reflux disease, unspecified whether esophagitis present CKD (chronic kidney disease), symptom management only, stage 3 (moderate) ([facility]) Obesity (BMI 30-39.9) Current every day smoker BREONNA (generalized anxiety disorder) Generalized anxiety disorder Mixed hyperlipidemia Mixed hyperlipidemia Tobacco dependence Tobacco use disorder Prostate cancer screening Special screening for malignant neoplasm of prostate Generalized anxiety disorder Generalized anxiety disorder Gastroesophageal reflux disease without esophagitis Esophageal reflux Hyperlipidemia, unspecified Type 2 diabetes mellitus with stage 3a chronic kidney disease, without long-term current use of insulin (HCC)- Primary Chronic obstructive pulmonary disease, unspecified COPD type (HCC) Primary hypertension Unspecified essential hypertension Elevated liver function tests Other abnormal blood chemistry Obesity (BMI 30-39.9) Tobacco dependence Tobacco use disorder Esophageal dysphagia Dysphagia, pharyngoesophageal phase Type 2 diabetes mellitus with stage 3a chronic kidney disease, without long-term current use of insulin ([facility]) Type 2 diabetes mellitus with diabetic polyneuropathy ([facility]) documented in this encounter [facility] HealthcareEvaluation note* Diagnosis Type 2 diabetes mellitus without complication, without long-term current use of insulin ([facility])- Primary Hyperlipidemia, unspecified hyperlipidemia type BREONNA (generalized anxiety disorder) Generalized anxiety disorder Primary hypertension Unspecified essential hypertension Type 2 diabetes mellitus with stage 3a chronic kidney disease, without long-term current use of insulin (HCC) Atherosclerosis of [place] coronary artery of [place] heart without angina pectoris Chronic heart failure with preserved ejection fraction (HCC) Current every day smoker BREONNA (generalized anxiety disorder)- Primary Generalized anxiety disorder Generalized anxiety disorder Generalized anxiety disorder Type 2 diabetes mellitus with stage 3a chronic kidney disease, without long-term current use of insulin (HCC)- Primary Type 2 diabetes mellitus with diabetic polyneuropathy (HCC) Generalized anxiety disorder Generalized anxiety disorder BREONNA (generalized anxiety disorder) Generalized anxiety disorder Primary hypertension Unspecified essential hypertension Hyperlipidemia, unspecified hyperlipidemia type Primary hypertension- Primary Unspecified essential hypertension Type 2 diabetes mellitus with stage 3a chronic kidney disease, without long-term current use of insulin (HCC) Mixed hyperlipidemia Mixed hyperlipidemia Generalized anxiety disorder Generalized anxiety disorder Current every day smoker Type 2 diabetes mellitus with diabetic polyneuropathy, without long-term current use of insulin (HCC) Dysphagia, unspecified type Choking due to food (regurgitated), initial encounter BREONNA (generalized anxiety disorder) Generalized anxiety disorder Smoker Tobacco use disorder Primary hypertension- Primary Unspecified essential hypertension Gastroesophageal reflux disease without esophagitis Esophageal reflux BREONNA (generalized anxiety disorder) Generalized anxiety disorder Hx of psoriasis Type 2 diabetes mellitus with diabetic polyneuropathy (HCC) Generalized anxiety disorder Generalized anxiety disorder BREONNA (generalized anxiety disorder) Generalized anxiety disorder Type 2 diabetes mellitus with stage 3a chronic kidney disease, without long-term current use of insulin (HCC) Primary hypertension Unspecified essential hypertension Gastroesophageal reflux disease without esophagitis Esophageal reflux Hyperlipidemia, unspecified Type 2 diabetes mellitus with stage 3a chronic kidney disease, without long-term current use of insulin (HCC)- Primary Generalized anxiety disorder Generalized anxiety disorder Type 2 diabetes mellitus with diabetic polyneuropathy (HCC) Hyperlipidemia, unspecified Primary hypertension Unspecified essential hypertension Type 2 diabetes mellitus with stage 3a chronic kidney disease, without long-term current use of insulin (HCC)- Primary Type 2 diabetes mellitus with diabetic polyneuropathy, unspecified whether nursing home insulin use (HCC) Atherosclerosis of [place] coronary artery of [place] heart without angina pectoris Chronic heart failure with preserved ejection fraction (HCC) Primary hypertension Unspecified essential hypertension Gastroesophageal reflux disease, unspecified whether esophagitis present CKD (chronic kidney disease), symptom management only, stage 3 (moderate) ([facility]) Obesity (BMI 30-39.9) Current every day smoker BREONNA (generalized anxiety disorder) Generalized anxiety disorder Mixed hyperlipidemia Mixed hyperlipidemia Tobacco dependence Tobacco use disorder Prostate cancer screening Special screening for malignant neoplasm of prostate Generalized anxiety disorder Generalized anxiety disorder Gastroesophageal reflux disease without esophagitis Esophageal reflux Hyperlipidemia, unspecified Type 2 diabetes mellitus with stage 3a chronic kidney disease, without long-term current use of insulin (HCC)- Primary Chronic obstructive pulmonary disease, unspecified COPD type (HCC) Primary hypertension Unspecified essential hypertension Elevated liver function tests Other abnormal blood chemistry Obesity (BMI 30-39.9) Tobacco dependence Tobacco use disorder Esophageal dysphagia Dysphagia, pharyngoesophageal phase Verruca plantaris- Primary Plantar wart Foot pain, right Pain in soft tissues of limb Foot pain, left Pain in soft tissues of limb documented in this encounter [facility] [...] medication regimen. He denies medication side effects. -[facility] [employer] DO Work Phone: History of Present illness [...] medication regimen. He denies medication side effects. -[facility] [employer] DO Work Phone: History of Present illness [...] Date Chronic diastolic CHF (congestive heart failure) ([facility]) CKD (chronic kidney disease), symptom management only, stage 3 (moderate) (HCC) ([facility]) DM II (diabetes mellitus, type II), controlled (CMS/HCC) Elevated cholesterol (CMS/HCC) Fracture RT LF BREONNA (generalized anxiety disorder) ([facility]) Heart disease History of medical problems cyst on cheek HLD (hyperlipidemia) ([facility]) Hypertension ([facility]HCC) Kidney stones Neuropathy of foot Smoking Type 2 diabetes mellitus with peripheral neuropathy ([facility]) Type 2 diabetes mellitus with stage 3 chronic kidney disease, without long-term current use of insulin, unspecified whether stage 3a or 3b CKD ([facility]) ([facility]) Medications: Current Outpatient Medications: ASPIRIN 81 MG chewable tablet, Chew 81 mg in the morning., Disp: , Rfl: Blood Pressure Monitoring (Blood Pressure Cuff) misc, 1 each in the morning and 1 each before bedtime., Disp: 1 each, Rfl: 0 Continuous Glucose Pneudraulic Systems Mechanic (Dexcom G7 Pneudraulic Systems Mechanic) device, 1 each continuously, Disp: 1 each, [...] meals., Disp: 180 tablet, Rfl: 1 Methylcobalamin (T69-UPNBVT PO), Take 1,000 mg by mouth 1 [...] VASC: Palpable pedal pulses bilaterally NEURO: 5.07 [place] Geraldine monofilament test intact to digits and [...] diabetes mellitus with diabetic polyneuropathy, 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 Contusion of left foot, initial encounter [...] infection [facility]ozano DPM [facility] Consultation (Routine) - Authorized Specialty Diagnoses / Procedures Referred By Bishnu t Referred To Contact Cardiology Diagnoses Atherosclerosis of [place] coronary artery of [place] heart without angina pectoris Shortness of breath Anxiety Obesity (BMI 30-39.9) Type 2 diabetes mellitus without complication, with long-term current use of insulin ([facility]) Current every day smoker Procedures Follow Up In Cardiology Jacinto Marcelino DO [address] [place] [address] 2, [address] [address] Jacinto Marcelino DO [address] [place] [address] 2, [address] [address] Referral ID Status Reason Start Date Expiration Date V isits Requested Visits Authorized [id number] Authorized 06/07/2023 06/06/2024 [address] [facility] Work Phone: Reason for referral (narrative)* Consultation (Routine) - Authorized Specialty Diagnoses / Procedures Referred By Contac t Referred To Contact Dermatology Diagnoses Hx of psoriasis Procedures MO OFFICE/OUTPATIENT NEW [facility] 60 MINUTES Cris Johnson NP [address] [place] [address] Keshav Chi, LOADING RACK SUPERVISOR-TURF AND GROUNDS SUPERVISOR [address] [facility] [address] [place] [address] Referral ID Status Reason Start Date Expiration Date Visits Requested Visits Authorized [id number] Authorized Specialty Services Required 02/13/2024 08/11/2024 1 1 * Consultation (Urgent) - Pending Review Specialty Diagnoses / Procedures Referred By Contac t Referred To Contact Behavioral Health Diagnoses BREONNA (generalized anxiety disorder) ([facility]) Procedures MO OFFICE/OUTPATIENT NEW [facility] 60 MINUTES Cris Johnson NP [address] [place] [address] Katharina Wilson NP [address] [facility] [address] [place] [address] Referral ID Status Reason Start Date Expiration Date Visits Requested Visits Authorized [id number] Pending Review Specialty Services Required 02/13/2024 08/11/2024 1 1 [facility] Consultation (Routine) - Authorized Specialty Diagnoses / Procedures Referred By Contac t Referred To Contact Podiatry Diagnoses Type 2 diabetes mellitus with stage 3a chronic kidney disease, without long-term current use of insulin (HCC) ([facility]) Procedures MO OFFICE/OUTPATIENT NEW HIGH MDM 60 MINUTES Cris Johnson NP [address] [place] [address] Grant Lozano DPM [address] [place] [address] Referral ID Status Reason Start Date Expiration Date Visits Requested Visits Authorized [id number] Authorized Specialty Services Required 01/05/2024 07/03/2024 1 1 [facility] Consultation (Routine) - Closed Specialty Diagnoses / Procedures Referred By Contac t Referred To Contact Dermatology Diagnoses Open wounds involving multiple regions of upper extremity Procedures MO OFFICE/OUTPATIENT NEW [facility]IGH MDM 60 MINUTES Malgorzata Holliday NP [address] [place] [address] Phone: tel: fax: Keshav Chi APRN-TURF AND GROUNDS SUPERVISOR [address] [place] [address] Phone: tel: fax: Referral ID Status Reason Start Date Expiration Date V isits Requested Visits Authorized [id number] Closed Specialty Services Required 10/17/2024 04/15/2025 1 1 [facility] Summary Purpose Family History Unknown Family [...] Documents on File Type Date Recorded Patient Detail Manager Expl anation Advance Directives and Living Will Power of Coagulating Operator Latest Code Status on File Code Status Date Activated Date Inactivated Comments Full Code 04/25/2018 6:40 AM 04/25/2018 1:22 PM Documents on File Type Date Recorded Patient Detail Manager Expl anation Advance Directives and Living Will Power of Coagulating Operator Latest Code Status on File Code Status Date Activated Date Inactivated Comments Full Code 04/25/2018 6:40 AM 04/25/2018 1:22 PM Documents on File Type Date Recorded Patient Detail Manager Expl anation ACP-Advance Directive ACP-Power of Coagulating Operator Documents on File Type Date Recorded Patient Detail Manager Expl anation ACP-Advance Directive ACP-Power of Coagulating Operator Advance Directive Response Recorded Date/ Time Advance Directives No August 23, 023 12:59pm Assessments Diagnosis Renal colic Diagnosis Renal colic Reason for Referral Status Reason Specialty Diagnoses / Procedures Referred By Contact Referred To Contact Pending Review Radiology Diagnoses Renal colic Procedures CT ABDOMEN PELVIS WO CONTRAST Additional Contrast? None William Golden, LOADING RACK SUPERVISOR - TURF AND GROUNDS SUPERVISOR [address] [place] [address] [facility] [address] Scan [address] [address] Status Reason Specialty Diagnoses / Procedures Referre d By Contact Referred To Contact Closed Radiology Diagnoses Stage 3a chronic kidney disease (HCC) Procedures US RENAL COMPLETE Pratik Miranda MD [address] [place] [address] Chief Complaint and Reason for Visit Chief [...] section and content) DATE CREATED AUTHOR 04/17/2018 [facility] DATE CREATED AUTHOR AUTHOR'S ORGANIZ ATION 04/17/2018 [facility] DATE CREATED AUTHOR AUTHOR'S ORGANIZ ATION 07/29/2019 [facility] DATE CREATED AUTHOR AUTHOR'S ORGANIZ ATION 10/25/2020 [facility] DATE CREATED AUTHOR AUTHOR'S ORGANIZ ATION 11/01/2020 [facility] DATE CREATED AUTHOR AUTHOR'S ORGANIZ ATION 04/30/2022 [facility] [place] [facility] DATE CREATED AUTHOR AUTHOR'S ORGANIZ ATION 08/20/2022 [facility] DATE CREATED AUTHOR AUTHOR'S ORGANIZ ATION 09/02/2022 [facility] DATE CREATED AUTHOR AUTHOR'S ORGANIZ ATION 09/20/2022 [facility] DATE CREATED AUTHOR AUTHOR'S ORGANIZ ATION 12/15/2022 [facility] DATE CREATED AUTHOR AUTHOR'S ORGANIZ ATION 06/14/2024 [facility] DATE CREATED AUTHOR AUTHOR'S ORGANIZ ATION 12/23/2024 [facility] EPIC Reason for Visit (unrecogniz ed section and content) Status Reason Specialty Diagnoses / Procedures Referred By Contact Referred To Contact Pending Review Radiology Diagnoses Renal colic Procedures CT ABDOMEN PELVIS WO CONTRAST Additional Contrast? None William Golden, LOADING RACK SUPERVISOR - TURF AND GROUNDS SUPERVISOR [address] [place] [address] [facility] [address] [place] [address] Status Reason Specialty Diagnoses / Procedures Referre d By Contact Referred To Contact Closed Radiology Diagnoses Stage 3a chronic kidney disease (HCC) Procedures US RENAL COMPLETE Pratik Miranda MD [address] [place] [address] Reason Comments Follow-up 6 months Reason Comments [...] without long-term current use of insulin (HCC) ([facility]) Procedures MO OFFICE/OUTPATIENT NEW HIGH MDM 60 MINUTES Cris Johnson, ACE [address] [place] [address] Grant Lozano DPM [address] [place] [address] Referral ID Status Reason Start Date Expiration Date V isits Requested Visits Authorized [id number] Closed Specialty Services Required 01/05/2024 07/03/2024 1 1 Reason Comments Med Refill Reason Comments Plantar Warts Reason Comments Follow-up Bl lesion check Reason Comments Follow-up Bl lesionc heck Reason Comments Diabetes Reason Comments Follow-up Rt lesion checl Reason Onset Date Comments Med Refill 12/17/2024 Reason Comments Follow-up Lesion check Care Teams (unrecognized sec tion and content) Team Status: Inactive Member Role Status Dates Roosevelt Crawley DO Primary Care Provider Active Bridget Munoz DO Attending Provider Active Tree Marcelino DO Referring Provider Active Team Status: Active Member Role Status Dates Roosevelt Crawley DO Primary Care Provider Active Team Status: Inactive Member Role Status Dates Roosevelt Crawley DO Primary Care Provider Active Tree Marcelino DO Attending Provider Active Adjunct Instructor Chemistry Relationship Specialty Start Date End Date Shaikh Rae MD [address] [place], [place] [id number] PCP - General Internal Medicine 06/07/23 Jacinto Marcelino DO [address] [facility] [address] [place] [address] Consulting Physician Cardiology 06/07/23 Adjunct Instructor Chemistry Relationship Specialty Start Date End Date Ajay Gates MD [address] [place] [address] PCP - General Family Medicine 12/12/23 Cris Johnson NP [address] [place] [address] Nurse Practitioner Family Medicine 12/12/23 Adjunct Instructor Chemistry Relationship Specialty Start Date End Date Ajay Gates MD [address] [place] [address] PCP - General Family Medicine 12/12/23 Cris Johnson NP [address] [place], [place] [address] Nurse Practitioner Family Medicine 12/12/23 Adjunct Instructor Chemistry Relationship Specialty Start Date End Date Ajay Gates MD [address] [place] [address] PCP - General Family Medicine 12/12/23 Cris Johnson NP [address] [place] [address] Nurse Practitioner Family Medicine 12/12/23 Adjunct Instructor Chemistry Relationship Specialty Start Date End Date Ajay Gates MD [address] [place] [address] PCP - General Family Medicine 12/12/23 Cris Johnson NP [address] [place] [address] Nurse Practitioner Family Medicine 12/12/23 Adjunct Instructor Chemistry Relationship Specialty Start Date End Date Ajay Gates MD [address] [place] [address] PCP - General Family Medicine 12/12/23 Cris Johnson NP [address] [place] [address] Nurse Practitioner Family Medicine 12/12/23 Adjunct Instructor Chemistry Relationship Specialty Start Date End Date Ajay Gates MD [address] [place] [address] PCP - General Family Medicine 12/12/23 Cris Johnson NP [address] [place] [address] Nurse Practitioner Family Medicine 12/12/23 Adjunct Instructor Chemistry Relationship Specialty Start Date End Date Ajay Gates MD [address] [place] [address] PCP - General Family Medicine 12/12/23 Cris Johnson NP [address] [place] [address] Nurse Practitioner Family Medicine 12/12/23 Adjunct Instructor Chemistry Relationship Specialty Start Date End Date Ajay Gates MD [address] [place] [address] PCP - General Family Medicine 12/12/23 Cris Johnson NP [address] [place] [address] Nurse Practitioner Family Medicine 12/12/23 Adjunct Instructor Chemistry Relationship Specialty Start Date End Date Ajay Gates MD [address] [place] [address] PCP - General Family Medicine 12/12/23 Cris Johnson NP [address] [place] [address] Nurse Practitioner Family Medicine 12/12/23 Adjunct Instructor Chemistry Relationship Specialty Start Date End Date Ajay Gates MD [address] [place] [address] PCP - General Family Medicine 12/12/23 Cris Johnson NP [address] [place] [address] Nurse Practitioner Family Medicine 12/12/23 Adjunct Instructor Chemistry Relationship Specialty Start Date End Date Ajay Gates MD [address] [place] [address] PCP - General Family Medicine 12/12/23 Cris Johnson NP [address] [place] [address] Nurse Practitioner Family Medicine 12/12/23 Adjunct Instructor Chemistry Relationship Specialty Start Date End Date Ajay Gates MD [address] [place] [address] PCP - General Family Medicine 12/12/23 Cris Johnson NP [address] [place] [address] Nurse Practitioner Family Medicine 12/12/23 Adjunct Instructor Chemistry Relationship Specialty Start Date End Date Ajay Gates MD [address] [place] [address] PCP - General Family Medicine 12/12/23 Cris Johnson NP [address] [place] [address] Nurse Practitioner Family Medicine 12/12/23 Adjunct Instructor Chemistry Relationship Specialty Start Date End Date Ajay Gates MD [address] [place] [address] PCP - General Family Medicine 12/12/23 Cris Johnson NP [address] [place] [address] Nurse Practitioner Family Medicine 12/12/23 Adjunct Instructor Chemistry Relationship Specialty Start Date End Date Ajay Gates MD [address] [place] [address] PCP - General Family Medicine 12/12/23 Cris Johnson NP [address] [place] [address] Nurse Practitioner Family Medicine 12/12/23 Adjunct Instructor Chemistry Relationship Specialty Start Date End Date Ajay Gates MD [address] [place] [address] PCP - General Family Medicine 12/12/23 Cris Johnson NP [address] [place] [address] Nurse Practitioner Family Medicine 12/12/23 Adjunct Instructor Chemistry Relationship Specialty Start Date End Date Ajay Gates MD [address] [place] [phone] PCP - General Family Medicine 12/12/23 Cris Johnson NP [address] [place] [address] Nurse Practitioner Family Medicine 12/12/23 Adjunct Instructor Chemistry Relationship Specialty Start Date End Date Ajay Gates MD [address] [place] [address] PCP - General Family Medicine 12/12/23 Cris Johnson NP [address] [place] [address] Nurse Practitioner Family Medicine 12/12/23 Adjunct Instructor Chemistry Relationship Specialty Start Date End Date Ajay Gates MD [address] [place] [address] PCP - General Family Medicine 12/12/23 Cris Johnson NP [address] [place] [address] Nurse Practitioner Family Medicine 12/12/23 Adjunct Instructor Chemistry Relationship Specialty Start Date End Date Ajay Gates MD [address] [place] [address] PCP - General Family Medicine 12/12/23 Cris Johnson NP [address] [place] [address] Nurse Practitioner Family Medicine 12/12/23 Adjunct Instructor Chemistry Relationship Specialty Start Date End Date Ajay Gates MD [address] [place] [address] PCP - General Family Medicine 12/12/23 Cris Johnson NP [address] [place] [address] Nurse Practitioner Family Medicine 12/12/23 Adjunct Instructor Chemistry Relationship Specialty Start Date End Date Ajay Gates MD [address] [place] [address] PCP - General Family Medicine 12/12/23 Cris Johnson NP [address] [place] [address] Nurse Practitioner Family Medicine 12/12/23 Adjunct Instructor Chemistry Relationship Specialty Start Date End Date Ajay Gates MD [address] [place] [place] [address] PCP - General Family Medicine 12/12/23 Cris Johnson NP [address] [place] [address] Nurse Practitioner Family Medicine 12/12/23 Adjunct Instructor Chemistry Relationship Specialty Start Date End Date Ajay Gates MD [address] [place] [address] PCP - General Family Medicine 12/12/23 Cris Johnson NP [address] [place] [address] Nurse Practitioner Family Medicine 12/12/23 Adjunct Instructor Chemistry Relationship Specialty Start Date End Date Ajay Gates MD [address] [place] [address] PCP - General Family Medicine 12/12/23 Cris Johnson NP [address] [place] [address] Nurse Practitioner Family Medicine 12/12/23 Adjunct Instructor Chemistry Relationship Specialty Start Date End Date Ajay Gates MD [address] [place] [address] PCP - General Family Medicine 12/12/23 Cris Johnson NP [address] [place] [address] Nurse Practitioner Family Medicine 12/12/23 Adjunct Instructor Chemistry Relationship Specialty Start Date End Date Ajay Gates MD [address] [place] [address] PCP - General Family Medicine 12/12/23 Cris Johnson NP [address] [place] [address] Nurse Practitioner Family Medicine 12/12/23 Adjunct Instructor Chemistry Relationship Specialty Start Date End Date Ajay Gates MD [address] [place] [address] PCP - General Family Medicine 12/12/23 Cris Johnson NP [address] [place] [address] Nurse Practitioner Family Medicine 12/12/23 Adjunct Instructor Chemistry Relationship Specialty Start Date End Date Ajay Gates MD [address] [place] [address] PCP - General Family Medicine 12/12/23 Cris Johnson NP [address] [place] [address] Nurse Practitioner Family Medicine 12/12/23 Adjunct Instructor Chemistry Relationship Specialty Start Date End Date Ajay Gates MD [address] [place] [address] PCP - General Family Medicine 12/12/23 Cris Johnson NP [address] [place] [address] Nurse Practitioner Family Medicine 12/12/23 Adjunct Instructor Chemistry Relationship Specialty Start Date End Date Ajay Gates MD [address] [place] [address] PCP - General Family Medicine 12/12/23 Cris Johnson NP [address] [place] [address] Nurse Practitioner Family Medicine 12/12/23 Adjunct Instructor Chemistry Relationship Specialty Start Date End Date Ajay Gates MD [address] [place] [address] PCP - General Family Medicine 12/12/23 Cris Johnson NP [address] [place] [address] Nurse Practitioner Family Medicine 12/12/23 Adjunct Instructor Chemistry Relationship Specialty Start Date End Date Ajay Gates MD [address] [place] [address] PCP - General Family Medicine 12/12/23 Cris Johnson NP [address] [place] [address] Nurse Practitioner Family Medicine 12/12/23 Adjunct Instructor Chemistry Relationship Specialty Start Date End Date Ajay Gates MD [address] [place] [address] PCP - General Family Medicine 12/12/23 Cris Johnson NP [address] [place] [address] Nurse Practitioner Family [facility] 12/12/23 Goals (unrecognized section and content) Goals [...] BE BASED ON THE PRIMARY CLINICAL RECORDS. [employer] [facility]. provides no warranty or guarantee of the accuracy or completeness of information in this document.
== END 2024-12-25 10:07 | disposition home or self-care (01) ==
PROVIDERS: PCP Nurse Practitioner; Visit Provider Nurse Practitioner
DX: R79.89 Other specified abnormal findings of blood chemistry (principal)
CPT/HCPCS: 36415; 80074; 80076